=== PATIENT | male | born 1935 | race Caucasian/White ===

== ENCOUNTER 2019-12-18 07:44 | Emergency (ER) | payer MEDICARE, SELFPAY ==
[2019-12-18] VITALS (36 sets, daily range): BP systolic 117–154; BP diastolic 52–88; PULSE 49–72; RESP 12–35; TEMP 36.2; O2SAT 93–97
--- NOTE | 2019-12-18 07:45 | RT.EKG_ITS ---
APPROVED REPORT Exam: Resting ECG Patient Location: E HR:65 bpm ECG Measurements Heart Rate 65 AXIS WV 160 P 50 QRSd 110 QRS -47 QT 411 T 5 QTc 428 Conclusion Sinus rhythm...normal P axis, V-rate 65 Incomplete left bundle branch block. Low voltage, precordial leads Anterior Q waves
[2019-12-18 08:02] LABS: Bilirubin Negative (Negative); Blood Negative (Negative); Clarity Clear (Clear); Glucose Negative (Negative); Ketones Negative (Negative); Leukocyte Esterase Negative (Negative); Nitrite Negative (Negative); Specific Gravity 1.025 (1.005-1.025); Urobilinogen 0.2 EU/dL (Up TO 0.2); pH 7.5 (5-8)
--- NOTE | 2019-12-18 08:23 | ED.GENADUL_ITS ---
Discharge Plan Disposition Patient Disposition: HOME Condition: Stable Discharge Details Clinical Impression: Confusion Primary Care Provider: Jordon Padron ED Provider: Quincy Schafer Home Meds and New Rx's Prescriptions: Continued atorvastatin [Lipitor] 40 MG tablet 40 mg PO DAILY RF: 0 polyethylene glycol 3350 17 GM powder in packet 17 gm PO DAILY RF: 0 sennosides-docusate sodium [Senokot-S] 1 EACH tablet 2 ea PO HS RF: 0 clopidogrel [Plavix] 75 MG tablet 75 mg PO DAILY RF: 0 acetaminophen [Mapap Extra Strength] 500 MG tablet 1,000 mg PO BID RF: 0 tamsulosin [Flomax] 0.4 MG capsule 0.4 mg PO DAILY RF: 0 pantoprazole 40 MG tablet,delayed release (DR/EC) 40 mg PO DAILY RF: 0 nitroglycerin [Nitrostat] 0.4 MG tablet, sublingual 0.4 mg Sublingual DIRECTED PRNRF: 0 metoprolol succinate 25 MG tablet extended release 24 hr 25 mg PO DAILY RF: 0 albuterol sulfate [Proventil HFA] 6.7 GM HFA aerosol inhaler 200 puff Inhalation Q4H PRN PRNRF: 0 lisinopril 2.5 MG tablet 2.5 mg PO DAILY RF: 0 bupropion HCl [Wellbutrin XL] 150 MG tablet extended release 24 hr 300 mg PO DAILY AM RF: 0 Therapeutic-M 1 TAB tablet 1 ea PO DAILY RF: 0 cholecalciferol (vitamin D3) 1,000 UNITS tablet 2,000 units PO DAILY RF: 0 [id number]-fish oil-D3 [Fish Oil-Vit D3] 1 EACH capsule 1 ea PO DAILY RF: 0 aspirin 81 mg Tablet,Delayed Release (Dr/Ec) 81 mg PO DAILY RF: 0 losartan 25 mg Tablet 25 mg PO DAILY RF: 0 latanoprost [Xalatan] 0.005 % Drops 0.005 drp ophthalmic (eye) DAILY RF: 0 fluticasone furoate 50 mcg/actuation Blister With Device 50 mcg INHALATION DAILY RF: 0 docosahexaenoic acid-epa 120-180 mg Capsule 120 cap PO DAILY RF: 0 atorvastatin [Lipitor] 40 mg Tablet 40 mg PO DAILY RF: 0 candesartan 4 mg Tablet 4 mg PO DAILY RF: 0 cyanocobalamin (vitamin B-12) 500 mcg Tablet 500 mcg PO DAILY RF: 0 Discharge Instructions Instructions: Altered Mental Status (ED) Additional Instructions: At this time it appears as though you are at your baseline mental state. Work- up in the ER has not revealed any obvious emergent process. As we discussed, I have placed you on the neurology follow-up list, I recommend contacting both neurology and your primary care provider tomorrow for prompt outpatient reevaluation. Please watch for new or worsening symptoms and return to the ER for any concerns. Referrals: Татьяна Fox MD [ [facility] STAFF PHYSICIAN] - Medical Decision Making This is an 84-year-old gentleman with history of hypertension, PR with 2 stents, presenting to the ER today reporting that he felt fatigued yesterday, went to bed asymptomatic, awoke around 5:45 this morning startled and per was confused. He reports a mild dull global headache, slightly worse on the right however otherwise asymptomatic. reports that his cognition is back to baseline. They both admit that there has been a slow steady decline over several months and his ability to remember names, and his reports that he has had a change in his personality, getting agitated more easily. He appears well, nontoxic and is neurologically intact. Differential includes but not excluded to UTI, atypical ACS, hypoglycemia, CVA, TIA, brain mass, dementia. Will initiate IV access, cardiac work-up including repeat 3-hour troponin, and CT imaging of his head. Both and patient are comfortable with this plan. I did discuss this plan with Dr. Esquivel. Initial work-up in the ER reveals a white blood cell count of 3.94 hemoglobin 14.1 hematocrit 41.8 platelet count 190. INR 1.0 electrolytes unremarkable. Creatinine 0.93 with a GFR greater than 60. Glucose 132 calcium 8.8 magnesium 2.2 LFTs unremarkable. TSH 3.25, initial troponin less than 0.05. Urine unremarkable Upon reevaluation patient remains asymptomatic. Agreeable to be observed in the ER for repeat troponin and EKG in 3 hours. Patient was given a lunch tray, ate without difficulty. Repeat EKG performed at 1127, please see official report by Dr. Esquivel. Sinus bradycardia, ventricular rate of 58. No STEMI. Repeat troponin remains less than 0.05. Patient remains neurologically intact here in the ER and she is currently on Plavix. Work-up in the ER has been unremarkable, CT of head and x-ray of chest unremarkable. My concern is that with a thorough HPI it seems as though the patient has had a steady decline in overall cognition and personality changes over several weeks. Although he very well could have had a TIA this morning, I do believe that outpatient evaluation through neurology is prudent. We did discuss the potential for need of MRI. MRI not obtained here in the ER as it wo uld likely not change his ER disposition. Blood pressure has trended down nicely on its own at 136/63. Patient was given 1 g p.o. Tylenol earlier in his visit for his global headache which she reports has now completely resolved. We discussed Holter monitor but they will discuss this with his primary care provider as an outpatient. I believe this to be perfectly reasonable. I have placed him on the neurology list here but he is undecided whether he will follow-up with neurology here or at [facility] where he receives the majority of his care. He was encouraged to watch for new or worsening symptoms and return immediately to the ER, otherwise contact neurology and his primary care provider later today or tomorrow for prompt outpatient reevaluation. Medical Records Medical records reviewed: Yes I reviewed the patient's medical records. Lab Data Lab results reviewed: Yes I reviewed the patient's lab results. Lab results narrative: Laboratory Tests Range/Units 12/18/19 12/18/19 12/18/19 07:57 08:15 08:15 WBC (4.4-10.8) 10^3/uL 3.94 L RBC (4.36-5.78) 10^6/uL 4.53 Hgb (13.5-17.5) g/dL 14.1 Hct (40.0-50.0) % 41.8 MCV (80-95) fL 92.3 MCH (27.0-33.0) pg 31.1 MCHC (32.0-36.0) % 33.7 RDW (11.8-14.1) % 12.5 Plt Count (130-400) 10^3/uL 190 MPV (8.0-11.0) fL 9.8 Immature Gran % 0.8 Neutrophils % 59.3 Lymphocytes % 20.8 Monocytes % 10.9 Eosinophils % 7.9 Basophils % 0.3 Nucleated RBC % % 0 Absolute Neutrophils (1.2-6.7) 10^3/uL 2.34 Absolute Lymphocytes (1.2-3.4) 10^3/uL 0.82 L Absolute Monocytes (0.1-0.8) 10^3/uL 0.43 Absolute Eosinophils (0.0-0.7) 10^3/uL 0.31 Absolute Basophils (0.0-0.2) 10^3/uL 0.01 PT (9.3-11.0) sec INR (0.9-1.1) APTT (21.0-31.4) sec Sodium (136-145) mmol/L 137 Potassium (3.5-5.1) mmol/L 4.2 Chloride (98-107) mmol/L 103 Carbon Dioxide (21.0-32.0) mmol/L 27.5 Anion Gap (3-11) mmol/L 6.5 BUN (7-18) mg/dL 12 Creatinine (0.70-1.30) mg/dL 0.93 Estimated GFR/1.73 m2 (mL/min/1.73m2) >= 60.00 Glucose (74-106) mg/dL 132 H Calcium (8.5-10.1) mg/dL 8.8 Magnesium (1.8-2.4) mg/dL Total Bilirubin (0.2-1.0) mg/dL 0.6 AST (15-37) U/L 22 ALT (16-63) U/L 28 Alkaline Phosphatase (46-116) U/L 78 Troponin I (<0.06) ng/mL Total Protein (6.4-8.2) g/dL 6.5 Albumin (3.4-5.0) g/dL 3.4 TSH (0.36-3.74) uIU/mL Urine Color (Yellow) Yellow Urine Clarity (Clear) Clear Urine pH (5-8) 7.5 Ur Specific [place] (1.005-1.025) 1.025 Urine Protein (Negative) mg/dL Negative Urine Ketones (Negative) mg/dL Negative Urine Blood (Negative) Negative Urine Nitrite (Negative) Negative Urine Bilirubin (Negative) Negative Urine Urobilinogen (Up TO 0.2) EU/dL 0.2 Ur Leukocyte Esterase (Negative) Negative Urine Glucose (Negative) mg/dL Negative Range/Units 12/18/19 12/18/19 12/18/19 08:15 08:15 08:15 WBC (4.4-10.8) 10^3/uL RBC (4.36-5.78) 10^6/uL Hgb (13.5-17.5) g/dL Hct (40.0-50.0) % MCV (80-95) fL MCH (27.0-33.0) pg MCHC (32.0-36.0) % RDW (11.8-14.1) % Plt Count (130-400) 10^3/uL MPV (8.0-11.0) fL Immature Gran % Neutrophils % Lymphocytes % Monocytes % Eosinophils % Basophils % Nucleated RBC % % Absolute Neutrophils (1.2-6.7) 10^3/uL Absolute Lymphocytes (1.2-3.4) 10^3/uL Absolute Monocytes (0.1-0.8) 10^3/uL Absolute Eosinophils (0.0-0.7) 10^3/uL Absolute Basophils (0.0-0.2) 10^3/uL PT (9.3-11.0) sec 10.0 INR (0.9-1.1) 1.0 APTT (21.0-31.4) sec 25.1 Sodium (136-145) mmol/L Potassium (3.5-5.1) mmol/L Chloride (98-107) mmol/L Carbon Dioxide (21.0-32.0) mmol/L Anion Gap (3-11) mmol/L BUN (7-18) mg/dL Creatinine (0.70-1.30) mg/dL Estimated GFR/1.73 m2 (mL/min/1.73m2) Glucose (74-106) mg/dL Calcium (8.5-10.1) mg/dL Magnesium (1.8-2.4) mg/dL 2.2 Total Bilirubin (0.2-1.0) mg/dL AST (15-37) U/L ALT (16-63) U/L Alkaline Phosphatase (46-116) U/L Troponin I (<0.06) ng/mL < 0.05 Total Protein (6.4-8.2) g/dL Albumin (3.4-5.0) g/dL TSH (0.36-3.74) uIU/mL 3.25 Urine Color (Yellow) Urine Clarity (Clear) Urine pH (5-8) Ur Specific [place] (1.005-1.025) Urine Protein (Negative) mg/dL Urine Ketones (Negative) mg/dL Urine Blood (Negative) Urine Nitrite (Negative) Urine Bilirubin (Negative) Urine Urobilinogen (Up TO 0.2) EU/dL Ur Leukocyte Esterase (Negative) Urine Glucose (Negative) mg/dL Range/Units 12/18/19 11:24 WBC (4.4-10.8) 10^3/uL RBC (4.36-5.78) 10^6/uL Hgb (13.5-17.5) g/dL Hct (40.0-50.0) % MCV (80-95) fL MCH (27.0-33.0) pg MCHC (32.0-36.0) % RDW (11.8-14.1) % Plt Count (130-400) 10^3/uL MPV (8.0-11.0) fL Immature Gran % Neutrophils % Lymphocytes % Monocytes % Eosinophils % Basophils % Nucleated RBC % % Absolute Neutrophils (1.2-6.7) 10^3/uL Absolute Lymphocytes (1.2-3.4) 10^3/uL Absolute Monocytes (0.1-0.8) 10^3/uL Absolute Eosinophils (0.0-0.7) 10^3/uL Absolute Basophils (0.0-0.2) 10^3/uL PT (9.3-11.0) sec INR (0.9-1.1) APTT (21.0-31.4) sec Sodium (136-145) mmol/L Potassium (3.5-5.1) mmol/L Chloride (98-107) mmol/L Carbon Dioxide (21.0-32.0) mmol/L Anion Gap (3-11) mmol/L BUN (7-18) mg/dL Creatinine (0.70-1.30) mg/dL Estimated GFR/1.73 m2 (mL/min/1.73m2) Glucose (74-106) mg/dL Calcium (8.5-10.1) mg/dL Magnesium (1.8-2.4) mg/dL Total Bilirubin (0.2-1.0) mg/dL AST (15-37) U/L ALT (16-63) U/L Alkaline Phosphatase (46-116) U/L Troponin I (<0.06) ng/mL < 0.05 Total Protein (6.4-8.2) g/dL Albumin (3.4-5.0) g/dL TSH (0.36-3.74) uIU/mL Urine Color (Yellow) Urine Clarity (Clear) Urine pH (5-8) Ur Specific [place] (1.005-1.025) Urine Protein (Negative) mg/dL Urine Ketones (Negative) mg/dL Urine Blood (Negative) Urine Nitrite (Negative) Urine Bilirubin (Negative) Urine Urobilinogen (Up TO 0.2) EU/dL Ur Leukocyte Esterase (Negative) Urine Glucose (Negative) mg/dL ECG Data Attestation: I personally reviewed and interpreted this ECG (s) as follows: Interpretation: Please see official report by Dr. Esquivel. Sinus rhythm, ventricular rate of 65. No STEMI. HPI General Mode of arrival: ambulatory . Date/Time Provider Initiated Documentation: 12/18/19 07:52 . Limitations to Documentation: no limitations . Information obtained by: patient and family . HPI Narrative: This is an 84-year-old male with history of hypertension, hypercholesteremia, GERD, BPH, PR 4 years ago with 2 stents, currently on Plavix, presents to the ER with his for evaluation of what they described as confusion. Apparently yesterday he was out doing yard work and felt more fatigued than baseline. He had one episode of diarrhea sometime yesterday evening or night. This morning he woke up around 5:45 and his describes him as appearing startled. He got up from bed and went out and laid in the recliner. She asked him what was wrong and he stated all be all right. She reports that he seemed confused, she asked him what her name was, and he stated of bananas. They spoke to their daughter on the phone who also reported he seemed different. He admits that he has a hard time remembering names and this is been ongoing for quite some time. reports a change in his overall personality, gets easily frustrated, over quite some time as well. Denies recent illness or trauma. She reports that he appears to be back to his baseline upon presentation to the ER and if he was acting like this at home she would have not come to the hospital in the first place. He denies any recent illness or trauma. He reports a mild global headache, worse on the right side. Denies fever, visual changes, neck pain, chest pain, shortness of breath, back pain, abdominal pain, nausea, vomiting, constipation, dysuria, hematuria, skin rash, numbness, tingling, weakness. Related Data Home Medications Medication Instructions Recorded Confirmed Therapeutic-M 1 ea PO DAILY 04/27/16 12/18/19 acetaminophen [Mapap Extra 1,000 mg PO BID 04/27/16 12/18/19 Strength] albuterol sulfate [Proventil HFA] 200 puff INHALATION Q4H PRN PRN 04/27/16 12/18/19 atorvastatin [Lipitor] 40 mg PO DAILY 04/27/16 12/18/19 bupropion HCl [Wellbutrin XL] 300 mg PO DAILY AM 04/27/16 12/18/19 cholecalciferol (vitamin D3) 2,000 units PO DAILY 04/27/16 04/27/16 clopidogrel [Plavix] 75 mg PO DAILY 04/27/16 12/18/19 lisinopril 2.5 mg PO DAILY 04/27/16 04/27/16 metoprolol succinate 25 mg PO DAILY 04/27/16 12/18/19 nitroglycerin [Nitrostat] 0.4 mg SUBLINGUAL DIRECTED PRN 04/27/16 12/18/19 [id number] oil-D3 [Fish 1 ea PO DAILY 04/27/16 12/18/19 Oil-Vit D3] pantoprazole 40 mg PO DAILY 04/27/16 12/18/19 polyethylene glycol 3350 17 gm PO DAILY 04/27/16 12/18/19 sennosides-docusate sodium 2 ea PO HS 04/27/16 04/27/16 [Senokot-S] tamsulosin [Flomax] 0.4 mg PO DAILY 04/27/16 12/18/19 aspirin 81 mg PO DAILY 12/18/19 12/18/19 atorvastatin [Lipitor] 40 mg PO DAILY 12/18/19 12/18/19 candesartan 4 mg PO DAILY 12/18/19 12/18/19 cyanocobalamin (vitamin B-12) 500 mcg PO DAILY 12/18/19 12/18/19 docosahexaenoic acid-epa 120 cap PO DAILY 12/18/19 12/18/19 fluticasone furoate 50 mcg INHALATION DAILY 12/18/19 12/18/19 latanoprost [Xalatan] 0.005 drp OPHTHALMIC (EYE) DAILY 12/18/19 12/18/19 losartan 25 mg PO DAILY 12/18/19 12/18/19 Allergies Allergy/AdvReac Type Severity Reaction Status Date / Time oxycodone [From Percocet] AdvReac Unverified 04/27/16 15:45 Penicillins AdvReac Unverified 04/27/16 15:45 General Stated Complaint: GenMedical FORD: 3 Review of Systems Constitutional Constitutional: Reports fatigue, Denies fever(s) and Denies weakness Eyes Eyes: Denies change in vision ENT Ears, Nose, Mouth, and Throat: Denies neck pain Cardiovascular Cardiovascular: Denies chest pain and Denies dyspnea Respiratory Respiratory: Denies cough and Denies dyspnea Gastrointestinal Gastrointestinal: Denies abdominal pain, Denies melena, Denies hematochezia, Reports diarrhea, Denies nausea and Denies vomiting Genitourinary Genitourinary: Denies dysuria Musculoskeletal Musculoskeletal: Denies back pain, Denies neck pain, Denies numbness and Denies tingling Integumentary/Breasts Skin/Breast: Denies rash Neurologic Neurologic: Denies numbness, Denies tingling and Denies weakness Endocrine Endocrine: Reports fatigue Hematologic/Lymphatic Hematologic/Lymphatic: Reports easy bleeding and Reports easy bruising [facility] Social History Smoking/Tobacco Use Status: Never Alcohol Intake: never Substance use type: does not use Do you feel safe at home: Yes Do you feel safe in your relationship?: Yes Exam Const General: cooperative, healthy appearing, comfortable and no acute distress Orientation: alert, awake, oriented to person, oriented to place and confused (To actual date, knows it is early December 2019) [facility] Head: normal to inspection, normocephalic and atraumatic Ears: external ears normal, TM's normal bilaterally and EAC's normal General nose exam: external nose normal Face and sinus: normal facial exam Mouth: oral mucosae normal and moist mucous membranes Throat: posterior oropharynx normal Eyes General: appearance normal, both eyes and all related structures Alignment and Position: alignment normal Periorbital: periorbital findings normal Eyelids: eyelids normal Conjunctivae: conjunctivae normal Sclera: sclerae normal Cornea: corneas normal Pupils: PERRL EOM: EOM intact bilaterally Direct ophthalmoscopy: normal light reflex Neck Neck: normal visual inspection, full ROM, no lymphadenopathy, no meningeal signs, trachea midline, supple and nontender Resp Effort & Inspection: normal respiratory effort and able to speak in complete sentences Auscultation: clear to auscultation bilaterally Cardio Rate: regular rate Rhythm: regular rhythm GI Palpation: soft, not firm, no guarding, not rigid and nontender Auscultation: normal bowel sounds Back/Spine/Pelvis Back: No back tenderness Skin General skin exam: no rashes or lesions noted Neuro General: patient alert, patient awake, moves all extremities and no focal motor deficits Cranial Nerves: CN's II-XI intact bilaterally Cognition: normal cognition Speech: speech normal Gait: normal gait Motor: muscle tone normal throughout, strength 5/5 throughout, no pronator drift, no movement abnormalities noted and no fasciculations Sensory Exam: no sensory deficits noted Coordination: [id number] test normal, [id number] test normal and Does not sway with eyes open Extrem General: normal to inspection, full ROM, capillary refill normal, no pedal edema and no calf tenderness Psych Appearance: grossly normal Mental Status: mental status grossly normal Course Vital Signs Vital signs: Vital Signs Temperature 36.2 C L 12/18/19 08:00 Pulse 63 12/18/19 08:00 Respiratory Rate 18 12/18/19 08:00 Blood Pressure 154/64 H 12/18/19 08:00 Pulse Oximetry 94 12/18/19 08:00 Temperature 36.2 C L 12/18/19 08:00 Temperature Source Tympanic 12/18/19 08:00 Pulse 63 12/18/19 08:00 Respiratory Rate 18 12/18/19 08:00 Respiratory Effort Non-Labored 12/18/19 08:04 Blood Pressure 154/64 H 12/18/19 08:00 Blood Pressure Position Sitting 12/18/19 08:00 Pulse Oximetry 94 12/18/19 08:00 Oxygen Delivery Method Room Air 10/06/20 08:00 Oxygen Flow Rate 0 12/18/19 08:00 Pain Level 0 12/18/19 08:00 Lab/Test Results Lab/Test Results: Laboratory Tests Range/Units 12/18/19 07:57 Urine Color (Yellow) Yellow Urine Clarity (Clear) Clear Urine pH (5-8) 7.5 Ur Specific [place] (1.005-1.025) 1.025 Urine Protein (Negative) mg/dL Negative Urine Ketones (Negative) mg/dL Negative Urine Blood (Negative) Negative Urine Nitrite (Negative) Negative Urine Bilirubin (Negative) Negative Urine Urobilinogen (Up TO 0.2) EU/dL 0.2 Ur Leukocyte Esterase (Negative) Negative Urine Glucose (Negative) mg/dL Negative
[2019-12-18 08:25] LABS: Abs Immature Grans 0.03 10^3/uL (0.0-0.06); Absolute Basophil Count 0.01 10^3/uL (0.0-0.2); Absolute Eosinophil Count 0.31 10^3/uL (0.0-0.7); Absolute Lymphocyte Count 0.82 10^3/uL (1.2-3.4); Absolute Monocyte Count 0.43 10^3/uL (0.1-0.8); Absolute Neutrophil Count 2.34 10^3/uL (1.2-6.7); Basophils % 0.3; Eosinophils % 7.9; HCT 41.8 % (40.0-50.0); HGB 14.1 g/dL (13.5-17.5); Immature Grans % 0.8; Lymphocytes % 20.8; MCH 31.1 pg (27.0-33.0); MCHC 33.7 % (32.0-36.0); MCV 92.3 fL (80-95); MPV 9.8 fL (8.0-11.0); Monocytes % 10.9; Neutrophils % 59.3; Nucleated RBC 0 %; Platelet Count 190 10^3/uL (130-400); RBC 4.53 10^6/uL (4.36-5.78); RDW 12.5 % (11.8-14.1); RDW-SD 42.5 fL; WBC 3.94 10^3/uL (4.4-10.8)
[2019-12-18 08:49] LABS: ALT 28 U/L (16-63); AST 22 U/L (15-37); Albumin 3.4 g/dL (3.4-5.0); Alkaline Phosphatase 78 U/L (46-116); Anion Gap 6.5 mmol/L (3-11); BUN 12 mg/dL (7-18); Bilirubin, Total 0.6 mg/dL (0.2-1.0); CO2 27.5 mmol/L (21.0-32.0); CREATININE 0.93 mg/dL (0.70-1.30); Calcium 8.8 mg/dL (8.5-10.1); Chloride 103 mmol/L (98-107); Glucose 132 mg/dL (74-106); Potassium 4.2 mmol/L (3.5-5.1); Sodium 137 mmol/L (136-145); Total Protein 6.5 g/dL (6.4-8.2)
[2019-12-18] MEDS: Normal Saline 1,000 ML 125 ML IV (09:00)
[2019-12-18 09:03] LABS: Magnesium 2.2 mg/dL (1.8-2.4)
--- NOTE | 2019-12-18 09:07 | DI.CT_ITS ---
EXAM: CT HEAD WO CLINICAL HISTORY: confusion around 545 this morning, resolved TECHNIQUE: COMPARISON: No exams were available for comparison FINDINGS: Noncontrast cranial CT was performed. There is moderate generalized cerebral atrophy. 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 No evidence of acute intracranial hemorrh age, mass effect, or midline shift. The orbital and temporal bone structures appear intact. Visuali zed mastoid air cells and paranasal sinuses are clear. IMPRESSION: No evidence of acute intracranial process. RADIATION DOSE DELIVERED: 724.53mGy.cm Total DLP
[2019-12-18 09:10] LABS: TSH (W/Ref FT4) 3.25 uIU/mL (0.36-3.74)
[2019-12-18 09:11] LABS: Troponin I < 0.05 ng/mL (<0.06)
--- NOTE | 2019-12-18 09:13 | DI.RAD_ITS ---
EXAM: XR CHEST 2V PA LATERAL CLINICAL HISTORY: confusion TECHNIQUE: COMPARISON: CR CHEST 2 VIEWS PA,LAT from 05/25/2010 FINDINGS: The heart is not enlarged. There are changes of COPD and pulmonary scarring. No acute consolidation . No change from prior chest film May 2010. No pleural effusion seen. IMPRESSION: No evidence of acute process. RADIATION DOSE DELIVERED: Total DLP
[2019-12-18 09:18] LABS: PTT Activated 25.1 sec (21.0-31.4)
[2019-12-18] MEDS: Acetaminophen 500 MG TAB 1000 MG PO (09:50)
--- NOTE | 2019-12-18 11:15 | RT.EKG_ITS ---
APPROVED REPORT Exam: Resting ECG Patient Location: E HR:58 bpm ECG Measurements Heart Rate 58 AXIS OK 162 P 52 QRSd 107 QRS -46 QT 418 T -3 QTc 411 Conclusion Sinus bradycardia..rate 60 Anteroseptal infarct, old..
--- NOTE | 2019-12-18 11:52 | NUR.NOTE ---
Referral faxed to [facility] Neurology.Nursing Note:
[2019-12-18 11:55] LABS: Troponin I < 0.05 ng/mL (<0.06)
== END 2019-12-18 12:48 | disposition home or self-care (01) ==
PROVIDERS: Emergency Provider Physician Assistant; PCP Family Medicine
DX: R41.0 Disorientation, unspecified (principal); F51.9 Sleep disorder not due to a substance or known physiological condition, unspecified; I10 Essential (primary) hypertension
CPT/HCPCS: 36415; 36416; 80053; 82962; 93005; 96360; 96361; 99285; 70450; 71046; 81003; 83735; 84443; 84484; 85025; 85610; 85730; 93010; 99284

== ENCOUNTER 2021-02-20 12:38 | Emergency (ER) | payer MEDICARE, SELFPAY ==
[2021-02-20] VITALS (32 sets, daily range): BP systolic 125–162; BP diastolic 48–103; PULSE 63–74; RESP 15–38; TEMP 36.7; O2SAT 85–97
--- NOTE | 2021-02-20 12:45 | RT.EKG_ITS ---
APPROVED REPORT Exam: Resting ECG Reason for Exam: SEIZURE Patient Location: E HR:70 bpm ECG Measurements Heart Rate 70 AXIS NJ 160 P 54 QRSd 113 QRS -46 QT 407 T 55 QTc 440 Conclusion Sinus rhythm...normal P axis, V-rate 60- 99 Incomplete left bundle branch block...QRSd>110mS, terminal axis(-90,-1)
--- NOTE | 2021-02-20 13:15 | DI.CT_ITS ---
Exam(s) CT HEAD WO EXAM: CT HEAD WO CLINICAL HISTORY: seizure like activity. TECHNIQUE: Imaging Protocol: Axial computed tomography images with coronal and sagittal reformatted images were created and reviewed COMPARISON: CT CT HEAD WO from 12/18/2019 FINDINGS: Ventricles and Extra axial spaces: Normal in size and morphology for the patient's age. Hemorrhage: None. Cerebral parenchyma: No acute territorial infarct. There are areas of decreased attenuation in the w douglas matter most consistent with chronic microvascular ischemic disease. Midline shift: None. Brainstem/Cerebellum: Normal. Calvarium: Normal. Visualized Paranasal sinuses/Mastoids: Clear. Soft Tissues: Unremarkable. IMPRESSION: 1. No acute intracranial process. 2. Results of this exam have been verbally communicated with provider. RADIATION DOSE DELIVERED: 796.17mGy.cm Total DLP DATA REPOSITORY: All CT scans at this facility are submitted to the National Radiology Data Registry (NRDR) Dose Index Registry (DIR) with the [employer] ([employer]). RADIATION OPTIMIZATION: All CT scans at this facility use at least one of these dose optimization te chniques: automated exposure control; mA and/or kV adjustment per patient size (includes targeted exa ms where dose is matched to clinical indication); or iterative reconstruction.
--- NOTE | 2021-02-20 13:15 | DI.RAD_ITS ---
Exam(s) XR CHEST 2V PA LATERAL EXAM: XR CHEST 2V PA LATERAL CLINICAL HISTORY: back pain TECHNIQUE: 2D digital imaging was performed of the chest. Two images were obtained. PA and lateral views were obtained. COMPARISON: CR XR CHEST 2V PA LATERAL from 12/18/2019 FINDINGS: MEDIASTINUM: Normal. HEART: Normal. PULMONARY VASCULATURE: Normal. LUNGS: No focal consolidating infiltrates. Chronic interstitial disease is present. PLEURAL SPACE: No pleural effusion or pneumothorax. BONE:Within normal limits for the patient's age. OTHER FINDINGS:Normal. IMPRESSION: No acute pulmonary findings. DATA REPOSITORY: RADIATION DOSE DELIVERED:
[2021-02-20] MEDS: Normal Saline Flush 10 ML SYR IVP ×2 (13:20→15:20)
--- NOTE | 2021-02-20 13:20 | ED.GENADUL_ITS ---
Discharge Plan Disposition Patient Disposition: HOME Condition: Improving Discharge Details Clinical Impression: Compression fracture of thoracic vertebra, Rib fractures, Seizure Primary Care Provider: Jordon Padron ED Provider: Lillie Dumont Home Meds and New Rx's Prescriptions: New lamotrigine 100 mg tablet 100 mg PO BID Qty: 28 RF: 0 lamotrigine [Lamictal] 25 mg tablet 125 mg PO BID 30 Days Qty: 300 RF: 0 hydrocodone-acetaminophen 5-325 mg tablet 1 tab PO Q6H PRN (Reason: pain) Qty: 10 RF: 0 Continued citalopram 10 mg tablet 10 mg PO DAILY RF: 0 donepezil 10 mg tablet 10 mg PO QHS RF: 0 therapeutic multivitamin Tablet 1 tab PO DAILY RF: 0 melatonin 3 mg Tablet 6 mg PO QHS RF: 0 fluticasone furoate 50 mcg/actuation Blister With Device 100 mcg INHALATION DAILY RF: 0 atorvastatin [Lipitor] 40 MG tablet 40 mg PO DAILY RF: 0 polyethylene glycol 3350 17 GM powder in packet 17 gm PO DAILY RF: 0 sennosides-docusate sodium [Senokot-S] 1 EACH tablet 2 ea PO HS RF: 0 clopidogrel [Plavix] 75 MG tablet 75 mg PO DAILY RF: 0 acetaminophen [Mapap Extra Strength] 500 MG tablet 1,000 mg PO BID RF: 0 tamsulosin [Flomax] 0.4 MG capsule 0.4 mg PO DAILY RF: 0 pantoprazole 40 MG tablet,delayed release (DR/EC) 40 mg PO DAILY RF: 0 nitroglycerin [Nitrostat] 0.4 MG tablet, sublingual 0.4 mg Sublingual DIRECTED PRNRF: 0 metoprolol succinate 25 MG tablet extended release 24 hr 25 mg PO DAILY RF: 0 albuterol sulfate [Proventil HFA] 6.7 GM HFA aerosol inhaler 200 puff Inhalation Q4H PRN PRNRF: 0 lisinopril 2.5 MG tablet 2.5 mg PO DAILY RF: 0 bupropion HCl [Wellbutrin XL] 150 MG tablet extended release 24 hr 150 mg PO DAILY AM RF: 0 Therapeutic-M 1 TAB tablet 1 ea PO DAILY RF: 0 cholecalciferol (vitamin D3) 1,000 UNITS tablet 2,000 units PO DAILY RF: 0 emtxh-[id number]-epa-fish oil-D3 [Fish Oil-Vit D3] 1 EACH capsule 1 ea PO DAILY RF: 0 aspirin 81 mg Tablet,Delayed Release (Dr/Ec) 81 mg PO DAILY RF: 0 losartan 25 mg Tablet 25 mg PO DAILY RF: 0 latanoprost [Xalatan] 0.005 % Drops 0.005 drp ophthalmic (eye) DAILY RF: 0 fluticasone furoate 50 mcg/actuation Blister With Device 50 mcg INHALATION DAILY RF: 0 docosahexaenoic acid-epa 120-180 mg Capsule 120 cap PO DAILY RF: 0 atorvastatin [Lipitor] 40 mg Tablet 40 mg PO DAILY RF: 0 candesartan 4 mg Tablet 4 mg PO DAILY RF: 0 cyanocobalamin (vitamin B-12) 500 mcg Tablet 500 mcg PO DAILY RF: 0 Discontinued lamotrigine 100 mg tablet 75 mg PO BID RF: 0 Discharge Instructions Instructions: Rib Fracture (ED), Vertebral Compression Fracture (ED), Recurrent Seizures in Adults (ED) Additional Instructions: The CT scan of your chest notes a thoracic spine compression fracture and right- sided rib fractures. These appear to be old and healing but may be the source of your pain. The remainder of your lab work and imaging today is reassuring and shows no evidence of significant abnormal findings. Apply ice to the affected area several times daily for 20 minutes at a time. A prescription for the pain medication Vicodin has been sent electronically to your pharmacy. Take this as needed and directed for pain. Stop taking your 75 mg Lamictal. You were given a dose of 100 mg Lamictal this evening here in the emergency department. A prescription for Lamictal 100 mg twice daily by mouth for the next 2 weeks has been sent electronically to your pharmacy. Take this as directed for the next 2 weeks. After you finish taking the prescription for Lamictal 100 mg twice daily, you are to start taking Lamictal 125 mg twice daily. A prescription for Lamictal 125 mg twice daily has also been sent electronically to your pharmacy. Call [facility] neurology on Tuesday morning to schedule a follow-up appointment for re-evaluation. Return immediately to the emergency department if you develop any worsening or new concerning symptoms. Discharge Data Discharge Physician: Lillie Dumont Medical Decision Making <Danielito Esquivel MD - Last Filed: 02/20/21 14:58> 85-year-old male brought to emergency department by his . She noticed 2 separate episodes of seizure-like activity last night over approximate 8 hours. After midnight he had 3 to 5 minutes while in bed of right upper extremity tonic-clonic movements that dissipated on its own. Patient was able to have some sleep during the night and then again this morning had approximate 20 minutes of right upper extremity tonic-clonic movements. There was no tongue biting, no loss continence, and he is not had chest pain or shortness of breath. Patient does complain of mild headache and upper back pain. Patient arrives to the ER alert and interactive. His vital signs reveal slight hypertension with a blood pressure 160/100. He is afebrile, interactive and does not have focal neurologic deficits. I received and reviewed records from [facility] where the patient has previously been followed by neurology. On January 08 of this year he was seen in the emergency department with seizure-like activity. Neurology was consulted with EEG recommended. EEG interpreted by Dr. Voss on January 08 reveals left anterior temporal waveforms suspicious for epileptiform morphology. These findings raise concern for a focal left frontal temporal dysfunction and potential for seizures. Follow-up in neurology clinic on January 27 note please seizure-like activities have been ongoing since at least December 2019. They note that the patient was tapered off of Keppra and now on low-dose lamotrigine. The records also will note consideration of obtaining repeat outpatient, ambulatory EEG. No seizure-like activity upon arrival. Concern for breakthrough seizure patient referred for CT scan of the head, screening chest x-ray, he is given 0.5 mg of Ativan both for muscle relaxation, anxiolysis, as well as acetaminophen. As it is change of shift, will sign the patient out to Dr. Dumont pending review of full complement of laboratories and reevaluation. Please see her note r egarding details of final impression and disposition. Would anticipate discussion with neurology regarding consideration of returning to use of Keppra versus alternative agent. Will perform CTA given the patient's hypertension upper back pain. Please see Dr. Dumont's note <Lillie Dumont DO - Last Filed: 02/20/21 21:59> 1500 --please see Dr. Esquivel's note for initial presentation, exam and plan. Case endorsed to follow-up on CT chest and follow-up with [facility] neurology regarding recommendations. CTA chest/abdomen/pelvis notes: IMPRESSION: 1. There is a T5 compression fracture which appears subacute. 2. Subacute healing nondisplaced right rib fractures. 3. No acute abdominal or pelvic process. 4. Stable hypodense mass in the right lobe of the liver. 5. Atherosclerosis of the abdominal aorta and its runoff with moderately severe is stenosis at the origin of the left femoral artery. 6. Results of this exam have been verbally communicated with provider. 1730 -- Patient reassessed at bedside and still does endorse midline back pain. He is tender overlying T5 in addition to right lateral chest. There is no step-off or evidence of trauma. He is neurovascularly intact. reports that he fell 3 weeks ago but was able to catch himself and denies any direct blunt injury. Patient denies any more recent fall. Imaging reviewed with Dr. Quiros. These injuries do appear subacute and recommends pain control but no other acute recommendations. Patient has an allergy to oxycodone which caused difficulty breathing. Will give a dose of Vicodin and reassess. Case also discussed with [facility] neurology who recommends increasing his Lamictal from 75 mg twice daily to 100 mg twice daily for 2 weeks then 125 mg twice daily and to follow-up with neurology outpatient. 1814 --patient had pain relief with vicodin with no adverse effects and was able to ambulate in the room and and patient felt comfortable going home. He was given Vicodin to go in addition to prescription sent electronically to his pharmacy. Prescriptions for lamictal 100 mg twice daily x 2 weeks then Lamictal 125 mg twice daily sent electronically to his pharmacy. Medical Records Medical records reviewed: Yes I reviewed the patient's medical records. Imaging Data Radiologic Study: Radiologist's impression: CT HEAD WO CLINICAL HISTORY: seizure like activity. TECHNIQUE: Imaging Protocol: Axial computed tomography images with coronal and sagittal reformatted images were created and reviewed COMPARISON: CT CT HEAD WO from 12/18/2019 FINDINGS: Ventricles and Extra axial spaces: Normal in size and morphology for the patient's age. Hemorrhage: None. Cerebral parenchyma: No acute territorial infarct. There are areas of decreased attenuation in the white matter most consistent with chronic microvascular ischemic disease. Midline shift: None. Brainstem/Cerebellum: Normal. Calvarium: Normal. Visualized Paranasal sinuses/Mastoids: Clear. Soft Tissues: Unremarkable. IMPRESSION: 1. No acute intracranial process. 2. Results of this exam have been verbally communicated with provider. XR CHEST 2V PA LATERAL CLINICAL HISTORY: back pain TECHNIQUE: 2D digital imaging was performed of the chest. Two images were obtained. PA and lateral views were obtained. COMPARISON: CR XR CHEST 2V PA LATERAL from 12/18/2019 FINDINGS: MEDIASTINUM: Normal. HEART: Normal. PULMONARY VASCULATURE: Normal. LUNGS: No focal consolidating infiltrates. Chronic interstitial disease is present. PLEURAL SPACE: No pleural effusion or pneumothorax. BONE:Within normal limits for the patient's age. OTHER FINDINGS:Normal. IMPRESSION: No acute pulmonary findings. CT THORAX ABD/PEL CTA CLINICAL HISTORY: Upper back pain, hypertension. TECHNIQUE: Imaging Protocol: Axial CT angiography was performed with multi- slice acquisition and multi-planar and/or 3D reconstructions. CONTRAST MATERIAL: Intravenous: Omnipaque 350 Contrast volume:100 mL Oral: No COMPARISON: CT RENAL COLIC WO CONTRAST from 04/27/2016 CT RENAL COLIC WO CONTRAST from 04/27/2016 CR XR CHEST 2V PA LATERAL from 12/18/2019 CR XR CHEST 2V PA LATERAL from 12/18/2019 CR XR CHEST 2V PA LATERAL from 02/20/2021 FINDINGS: CHEST: Tracheobronchial tree: Patent where visualized. Pulmonary parenchyma: There are dependent small infiltrates in the lung bases. No architectural distortion. Pulmonary Arteries: No evidence of filling defect to suggest pulmonary emboli. Mediastinum and Megha: No dominant adenopathy or fluid collection. There is a small hiatal hernia. Visualized thyroid: Unremarkable. Pleura: No effusion or pneumothorax. Heart: Mild cardiomegaly. Coronary artery calcifications are present. No pericardial effusion. Aorta: Thoracic aorta non-dilated. Atherosclerosis. No evidence of dissection. Soft Tissues: Unremarkable. Bones: There are subacute nondisplaced healing right rib fractures.There is a T5 compression fracture deformity which appears subacute. There is loss of approximately 20 percent of the height of the vertebral body. No retropulsion is identified. ABDOMEN AND PELVIS: Abdomen: Celiac axis/mesenteric arteries: No evidence of occlusion or significant stenosis. Atherosclerosis. Renal Arteries: No evidence of occlusion or significant stenosis. There is a single renal artery perfusing each kidney. Atherosclerosis. Aorta: No evidence of occlusion or significant stenosis. No aneurysm or dissection. Atherosclerosis. Pelvis: Iliac Arteries: No evidence of occlusion or significant stenosis. Atherosclerosis. Common Femoral Arteries: No evidence of occlusion or significant stenosis. There is atherosclerosis and moderately severe stenosis involving the proximal left femoral artery. ABDOMEN: Liver: There is again seen a hypodense mass in the right lobe of the liver. There does appear to be peripheral enhancement and this may represent a hemangioma. A CT scan or MRI of the liver using the hepatic hemangioma protocol may be obtained for further evaluation. No measurable mass. Portal, Superior Mesenteric, and Splenic Veins: Unremarkable. Gallbladder and Biliary Tract: No radiodense calculus or dilation. Pancreas: Normal density, no abnormal calcifications or inflammatory process. Spleen: Normal. Adrenals: No masses seen. Kidneys: Normal size, contour and axis. Nonobstructing right renal calculi. No masses seen. Bowel: No obstruction or bowel wall thickening. Appendix is unremarkable. There is a large amount of stool in the rectum which may reflect fecal impaction. Peritoneal Cavity: No ascites, collection or mesenteric inflammatory response. No free air. Lymph Nodes: Within normal limits. Bones: Multilevel degenerative changes in the lumbar spine. Soft Tissues: Unremarkable. PELVIS: Bladder: Symmetric distention, no gross wall thickening. Reproductive Organs: Unremarkable as visualized. Lymph Nodes: Within normal limits. Bones: Within normal limits. IMPRESSION: 1. There is a T5 compression fracture which appears subacute. 2. Subacute healing nondisplaced right rib fractures. 3. No acute abdominal or pelvic process. 4. Stable hypodense mass in the right lobe of the liver. 5. Atherosclerosis of the abdominal aorta and its runoff with moderately severe is stenosis at the origin of the left femoral artery. 6. Results of this exam have been verbally communicated with provider. Lab Data Lab results reviewed: Yes I reviewed the patient's lab results. Labs: 02/20/21 14:50 Urine - Reflex from Ua Urine Culture - Pending Laboratory Tests Range/Units 02/20/21 02/20/21 02/20/21 13:20 13:20 13:20 WBC (4.4-10.8) 10^3/uL 7.24 RBC (4.36-5.78) 10^6/uL 4.66 Hgb (13.5-17.5) g/dL 14.1 Hct (40.0-50.0) % 43.9 MCV (80-95) fL 94.2 MCH (27.0-33.0) pg 30.3 MCHC (32.0-36.0) % 32.1 RDW (11.8-14.1) % 13.1 Plt Count (130-400) 10^3/uL 181 MPV (8.0-11.0) fL 10.0 Immature Gran % 0.6 Neutrophils % 83.9 Lymphocytes % 8.7 Monocytes % 5.7 Eosinophils % 0.8 Basophils % 0.3 Nucleated RBC % % 0 Absolute Neutrophils (1.2-6.7) 10^3/uL 6.08 Absolute Lymphocytes (1.2-3.4) 10^3/uL 0.63 L Absolute Monocytes (0.1-0.8) 10^3/uL 0.41 Absolute Eosinophils (0.0-0.7) 10^3/uL 0.06 Absolute Basophils (0.0-0.2) 10^3/uL 0.02 Sodium (136-145) mmol/L 139 Potassium (3.5-5.1) mmol/L 4.1 Chloride (98-107) mmol/L 103 Carbon Dioxide (21.0-32.0) mmol/L 26.0 Anion Gap (3-11) mmol/L 10.0 BUN (7-18) mg/dL 16 Creatinine (0.70-1.30) mg/dL 1.1 Estimated GFR/1.73 m2 (mL/min/1.73m2) >= 60.00 Glucose (74-106) mg/dL 233 H Calcium (8.5-10.1) mg/dL 8.6 Total Bilirubin (0.2-1.0) mg/dL 0.6 AST (15-37) U/L 29 ALT (16-63) U/L 32 Alkaline Phosphatase (46-116) U/L 96 Troponin I (<0.06) ng/mL < 0.05 Total Protein (6.4-8.2) g/dL 6.9 Albumin (3.4-5.0) g/dL 3.9 Urine Color (Yellow) Urine Clarity (Clear) Urine pH (5-8) Ur Specific Roland (1.005-1.025) Urine Protein (Negative) mg/dL Urine Ketones (Negative) mg/dL Urine Blood (Negative) Urine Nitrite (Negative) Urine Bilirubin (Negative) Urine Urobilinogen (Up TO 0.2) EU/dL Ur Leukocyte Esterase (Negative) Urine RBC (0-2) HPF Urine WBC (0-5) HPF Ur Epithelial Cells (Negative) HPF Urine Crystals (Negative) HPF Urine Bacteria (Negative) HPF Urine Casts (Negative) LPF Urine Mucus (Negative) Urine Other (Negative) Ur Culture Indicated? Urine Glucose (Negative) mg/dL Range/Units 02/20/21 14:50 WBC (4.4-10.8) 10^3/uL RBC (4.36-5.78) 10^6/uL Hgb (13.5-17.5) g/dL Hct (40.0-50.0) % MCV (80-95) fL MCH (27.0-33.0) pg MCHC (32.0-36.0) % RDW (11.8-14.1) % Plt Count (130-400) 10^3/uL MPV (8.0-11.0) fL Immature Gran % Neutrophils % Lymphocytes % Monocytes % Eosinophils % Basophils % Nucleated RBC % % Absolute Neutrophils (1.2-6.7) 10^3/uL Absolute Lymphocytes (1.2-3.4) 10^3/uL Absolute Monocytes (0.1-0.8) 10^3/uL Absolute Eosinophils (0.0-0.7) 10^3/uL Absolute Basophils (0.0-0.2) 10^3/uL Sodium (136-145) mmol/L Potassium (3.5-5.1) mmol/L Chloride (98-107) mmol/L Carbon Dioxide (21.0-32.0) mmol/L Anion Gap (3-11) mmol/L BUN (7-18) mg/dL Creatinine (0.70-1.30) mg/dL Estimated GFR/1.73 m2 (mL/min/1.73m2) Glucose (74-106) mg/dL Calcium (8.5-10.1) mg/dL Total Bilirubin (0.2-1.0) mg/dL AST (15-37) U/L ALT (16-63) U/L Alkaline Phosphatase (46-116) U/L Troponin I (<0.06) ng/mL Total Protein (6.4-8.2) g/dL Albumin (3.4-5.0) g/dL Urine Color (Yellow) Yellow Urine Clarity (Clear) Clear Urine pH (5-8) 6.5 Ur Specific Roland (1.005-1.025) >= 1.030 H Urine Protein (Negative) mg/dL 30 H Urine Ketones (Negative) mg/dL Negative Urine Blood (Negative) Trace-intact H Urine Nitrite (Negative) Negative Urine Bilirubin (Negative) Negative Urine Urobilinogen (Up TO 0.2) EU/dL 0.2 Ur Leukocyte Esterase (Negative) Negative Urine RBC (0-2) HPF 5-10 H Urine WBC (0-5) HPF 5-10 Ur Epithelial Cells (Negative) HPF Negative Urine Crystals (Negative) HPF Negative Urine Bacteria (Negative) HPF Negative Urine Casts (Negative) LPF Negative Urine Mucus (Negative) Negative Urine Other (Negative) Negative Ur Culture Indicated? Yes Urine Glucose (Negative) mg/dL 500 H ECG Data Attestation: I personally reviewed and interpreted this ECG (s) as follows: Interpretation: rate of 70, sinus, incomplete RBBB, no stemi. HPI <Danielito Esquivel MD - Last Filed: 02/20/21 14:58> General Mode of arrival: ambulatory . Date/Time Provider Initiated Documentation: 02/20/21 12:39 . Limitations to Documentation: no limitations . Information obtained by: patient and family . History of Present Illness 85 year old M presents to the emergency department with the chief complaint of Seizure-like activity last night x2, upper back pain, described as moderate and similar to prior episodes, and is localized to the right and upper extremity. Patient started experiencing this hour(s) and it has been intermittent and now resolved. No relieving factors improve symptom(s), No exacerbating factors reported . Patient did receive the following treatments prior to arrival, none Related Data Home Medications Medication Instructions Recorded Confirmed Therapeutic-M 1 ea PO DAILY 04/27/16 12/18/19 acetaminophen [Mapap Extra 1,000 mg PO BID 04/27/16 02/20/21 Strength] albuterol sulfate [Proventil HFA] 200 puff INHALATION Q4H PRN PRN 04/27/16 02/20/21 atorvastatin [Lipitor] 40 mg PO DAILY 04/27/16 12/18/19 bupropion HCl [Wellbutrin XL] 150 mg PO DAILY AM 04/27/16 02/20/21 cholecalciferol (vitamin D3) 2,000 units PO DAILY 04/27/16 02/20/21 clopidogrel [Plavix] 75 mg PO DAILY 04/27/16 02/20/21 lisinopril 2.5 mg PO DAILY 04/27/16 02/20/21 metoprolol succinate 25 mg PO DAILY 04/27/16 02/20/21 nitroglycerin [Nitrostat] 0.4 mg SUBLINGUAL DIRECTED PRN 04/27/16 02/20/21 pxcbo-2g-sop-epa-fish oil-D3 [Fish 1 ea PO DAILY 04/27/16 12/18/19 Oil-Vit D3] pantoprazole 40 mg PO DAILY 04/27/16 02/20/21 polyethylene glycol 3350 17 gm PO DAILY 04/27/16 12/18/19 sennosides-docusate sodium 2 ea PO HS 04/27/16 04/27/16 [Senokot-S] tamsulosin [Flomax] 0.4 mg PO DAILY 04/27/16 02/20/21 aspirin 81 mg PO DAILY 12/18/19 02/20/21 atorvastatin [Lipitor] 40 mg PO DAILY 12/18/19 02/20/21 candesartan 4 mg PO DAILY 12/18/19 02/20/21 cyanocobalamin (vitamin B-12) 500 mcg PO DAILY 12/18/19 02/20/21 docosahexaenoic acid-epa 120 cap PO DAILY 12/18/19 02/20/21 fluticasone furoate 50 mcg INHALATION DAILY 12/18/19 12/18/19 latanoprost [Xalatan] 0.005 drp OPHTHALMIC (EYE) DAILY 12/18/19 12/18/19 losartan 25 mg PO DAILY 12/18/19 02/20/21 citalopram 10 mg PO DAILY 02/20/21 02/20/21 donepezil 10 mg PO QHS 02/20/21 02/20/21 fluticasone furoate 100 mcg INHALATION DAILY 02/20/21 02/20/21 hydrocodone-acetaminophen 1 tab PO Q6H PRN #10 tab 02/20/21 lamotrigine 100 mg PO BID #28 tab 02/20/21 lamotrigine [Lamictal] 125 mg PO BID 30 Days #300 tab 02/20/21 melatonin 6 mg PO QHS 02/20/21 02/20/21 therapeutic multivitamin 1 tab PO DAILY 02/20/21 02/20/21 Previous Rx's Medication Instructions Recorded hydrocodone-acetaminophen 1 tab PO Q6H PRN #10 tab 02/20/21 lamotrigine 100 mg PO BID #28 tab 02/20/21 lamotrigine [Lamictal] 125 mg PO BID 30 Days #300 tab 02/20/21 Allergies Allergy/AdvReac Type Severity Reaction Status Date / Time oxycodone [From Percocet] AdvReac Unverified 02/20/21 12:53 Penicillins AdvReac Unverified 02/20/21 12:53 General Stated Complaint: Seizure FORD: 3 Review of Systems <Danielito Esquivel MD - Last Filed: 02/20/21 14:58> Narrative: Previously on Keppra, not taking Lamictal. No recent illness. Fully immunized against Covid team. No fall or other injury today. Patient notes mild headache and upper back pain. Patient's states he did have some right anterior chest pain 2 days ago. 8 systems reviewed and otherwise negative. PFSH <Danielito Esquivel MD - Last Filed: 02/20/21 14:58> All Active Problems (Updated 02/20/21 @ 18:02 by Lillie Dumont DO) Compression fracture of thoracic vertebra (Acute) Rib fractures (Acute) Seizure (Acute) Social History Smoking/Tobacco Use Status: Never Smoking risk assessment performed?: Yes Alcohol Intake: never Substance use type: does not use Do you feel safe at home: Yes Do you feel safe in your relationship?: Yes Exam <Danielito Esquivel MD - Last Filed: 02/20/21 14:58> Narrative Exam Narrative: GEN: awake, alert, oriented 3. Pleasant, well groomed, interactive. HEAD: Normocephalic, atraumatic ENT: Mucous membranes moist, External ear exam unremarkable EYES: PERRL, EOMI NECK: Full ROM, no KEE, no menigismus Back: The left upper thoracic paraspinous musculature is tense and tender to palpation. No midline step-off deformity. CHEST/RESP: Nontender, clear to auscultation bilateral, no wheeze/rhonchi/rales CARDIOVASCULAR: RRR, no murmur, rub ginger. 2+ Rad pulse bilateral ABDOMEN: Soft, nontender, no mass. +Bowel sounds EXT: Full ROM, no edema, no rash Neuro: Grossly normal neurologic exam, conversant, interactive. Motor 5 out of 5 in the bilateral upper extremities. Cranial nerves II through XII intact. Psych: Speech fluent, thoughts congruent, affect normal Course <Danielito Esquivel MD - Last Filed: 02/20/21 14:58> Vital Signs Vital signs: Vital Signs Temperature 36.7 C 02/20/21 12:47 Pulse 73 02/20/21 12:47 Respiratory Rate 18 02/20/21 12:47 Blood Pressure 162/103 H 02/20/21 12:47 Pulse Oximetry 91 L 02/20/21 12:47 Temperature 36.7 C 02/20/21 12:47 Temperature Source Oral 02/20/21 12:47 Pulse 73 02/20/21 12:47 Respiratory Rate 18 02/20/21 12:47 Blood Pressure 162/103 H 02/20/21 12:47 Blood Pressure Position Sitting 02/20/21 12:47 Pulse Oximetry 91 L 02/20/21 12:47 Oxygen Delivery Method Room Air 02/20/21 12:47 Oxygen Flow Rate 0 02/20/21 12:47 Sign Out <Danielito Esquivel MD - Last Filed: 02/20/21 14:58> Sign Out Data: Sign Out Comment: R arm tonic clonic movement, followup labs, imaging, consider d/w neurology Last updated by Danielito Esquivel MD at 02/20/21 14:50
[2021-02-20 13:29] LABS: Abs Immature Grans 0.04 10^3/uL (0.0-0.06); Absolute Basophil Count 0.02 10^3/uL (0.0-0.2); Absolute Eosinophil Count 0.06 10^3/uL (0.0-0.7); Absolute Lymphocyte Count 0.63 10^3/uL (1.2-3.4); Absolute Monocyte Count 0.41 10^3/uL (0.1-0.8); Absolute Neutrophil Count 6.08 10^3/uL (1.2-6.7); Basophils % 0.3; Eosinophils % 0.8; HCT 43.9 % (40.0-50.0); HGB 14.1 g/dL (13.5-17.5); Immature Grans % 0.6; Lymphocytes % 8.7; MCH 30.3 pg (27.0-33.0); MCHC 32.1 % (32.0-36.0); MCV 94.2 fL (80-95); Monocytes % 5.7; Neutrophils % 83.9; Nucleated RBC 0 %; Platelet Count 181 10^3/uL (130-400); RBC 4.66 10^6/uL (4.36-5.78); RDW 13.1 % (11.8-14.1); RDW-SD 44.6 fL; WBC 7.24 10^3/uL (4.4-10.8)
[2021-02-20] MEDS: Normal Saline 1,000 ML 150 ML IV (13:30)
[2021-02-20] MEDS: LORazepam 2 MG/ML VIAL 0.5 MG IVP (13:39)
[2021-02-20] MEDS: ACETAMINOPHEN 1,000 MG/100 ML BTL 400 MG IVPB (13:40)
[2021-02-20 14:03] LABS: ALT 32 U/L (16-63); AST 29 U/L (15-37); Albumin 3.9 g/dL (3.4-5.0); Alkaline Phosphatase 96 U/L (46-116); BUN 16 mg/dL (7-18); Bilirubin, Total 0.6 mg/dL (0.2-1.0); CREATININE 1.1 mg/dL (0.70-1.30); Calcium 8.6 mg/dL (8.5-10.1); Chloride 103 mmol/L (98-107); Glucose 233 mg/dL (74-106); Potassium 4.1 mmol/L (3.5-5.1); Sodium 139 mmol/L (136-145); Total Protein 6.9 g/dL (6.4-8.2)
--- NOTE | 2021-02-20 14:45 | DI.CT_ITS ---
Exam(s) CT THORAX ABD/PEL CTA EXAM: CT THORAX ABD/PEL CTA CLINICAL HISTORY: Upper back pain, hypertension. TECHNIQUE: Imaging Protocol: Axial CT angiography was performed with multi-slice acquisition and m ulti-planar and/or 3D reconstructions. CONTRAST MATERIAL: Intravenous: Omnipaque 350 Contrast volume:100 mL Oral: No COMPARISON: CT RENAL COLIC WO CONTRAST from 04/27/2016 CT RENAL COLIC WO CONTRAST from 04/27/2016 CR XR CHEST 2V PA LATERAL from 12/18/2019 CR XR CHEST 2V PA LATERAL from 12/18/2019 CR XR CHEST 2V PA LATERAL from 02/20/2021 FINDINGS: CHEST: Tracheobronchial tree: Patent where visualized. Pulmonary parenchyma: There are dependent small infiltrates in the lung bases. No architectural dist ortion. Pulmonary Arteries: No evidence of filling defect to suggest pulmonary emboli. Mediastinum and Megha: No dominant adenopathy or fluid collection. There is a small hiatal hernia. Visualized thyroid: Unremarkable. Pleura: No effusion or pneumothorax. Heart: Mild cardiomegaly. Coronary artery calcifications are present. No pericardial effusion. Aorta: Thoracic aorta non-dilated. Atherosclerosis. No evidence of dissection. Soft Tissues: Unremarkable. Bones: There are subacute nondisplaced healing right rib fractures.There is a T5 compression fracture deformity which appears subacute. There is loss of approximately 20 percent of the height of the ve rtebral body. No retropulsion is identified. ABDOMEN AND PELVIS: Abdomen: Celiac axis/mesenteric arteries: No evidence of occlusion or significant stenosis. Atherosclerosis. Renal Arteries: No evidence of occlusion or significant stenosis. There is a single renal artery per fusing each kidney. Atherosclerosis. Aorta: No evidence of occlusion or significant stenosis. No aneurysm or dissection. Atherosclerosi s. Pelvis: Iliac Arteries: No evidence of occlusion or significant stenosis. Atherosclerosis. Common Femoral Arteries: No evidence of occlusion or significant stenosis. There is atherosclerosis and moderately severe stenosis involving the proximal left femoral artery. ABDOMEN: Liver: There is again seen a hypodense mass in the right lobe of the liver. There does appear to be peripheral enhancement and this may represent a hemangioma. A CT scan or MRI of the liver using the hepatic hemangioma protocol may be obtained for further evaluation. No measurable mass. Portal, Superior Mesenteric, and Splenic Veins: Unremarkable. Gallbladder and Biliary Tract: No radiodense calculus or dilation. Pancreas: Normal density, no abnormal calcifications or inflammatory process. Spleen: Normal. Adrenals: No masses seen. Kidneys: Normal size, contour and axis. Nonobstructing right renal calculi. No masses seen. Bowel: No obstruction or bowel wall thickening. Appendix is unremarkable. There is a large amount of stool in the rectum which may reflect fecal impaction. Peritoneal Cavity: No ascites, collection or mesenteric inflammatory response. No free air. Lymph Nodes: Within normal limits. Bones: Multilevel degenerative changes in the lumbar spine. Soft Tissues: Unremarkable. PELVIS: Bladder: Symmetric distention, no gross wall thickening. Reproductive Organs: Unremarkable as visualized. Lymph Nodes: Within normal limits. Bones: Within normal limits. IMPRESSION: 1. There is a T5 compression fracture which appears subacute. 2. Subacute healing nondisplaced right rib fractures. 3. No acute abdominal or pelvic process. 4. Stable hypodense mass in the right lobe of the liver. 5. Atherosclerosis of the abdominal aorta and its runoff with moderately severe is stenosis at the or igin of the left femoral artery. 6. Results of this exam have been verbally communicated with provider. RADIATION DOSE DELIVERED: 855.19mGy.cm Total DLP 855.19mGy.cm Total DLP DATA REPOSITORY: All CT scans at this facility are submitted to the National Radiology Data Registry (NRDR) Dose Index Registry (DIR) with the [employer] (ACR). RADIATION OPTIMIZATION: All CT scans at this facility use at least one of these dose optimization te chniques: automated exposure control; mA and/or kV adjustment per patient size (includes targeted exa ms where dose is matched to clinical indication); or iterative reconstruction.
[2021-02-20 15:11] LABS: Bilirubin Negative (Negative); Blood Trace-intact (Negative); Clarity Clear (Clear); Glucose 500 mg/dL (Negative); Ketones Negative (Negative); Leukocyte Esterase Negative (Negative); Nitrite Negative (Negative); Specific Gravity >= 1.030 (1.005-1.025); Urobilinogen 0.2 EU/dL (Up TO 0.2); pH 6.5 (5-8)
[2021-02-20 15:12] LABS: Troponin I < 0.05 ng/mL (<0.06)
[2021-02-20] MEDS: Omnipaque 350 MG/ML 100 ML BTL IJ (15:19)
[2021-02-20 15:25] LABS: Bacteria Negative HPF (Negative); C & S Indicated? Yes; Casts Negative LPF (Negative); Crystals Negative HPF (Negative); Epithelial Cells Negative HPF (Negative); Mucus Negative (Negative); Other Cells Negative (Negative)
[2021-02-20] MEDS: Normal Saline 250 ML IV (17:10)
[2021-02-20] MEDS: HYDROcodone 5/Acetaminophen 325 TAB PO (17:44)
[2021-02-20] MEDS: lamoTRIgine 100 MG TAB PO (17:45)
--- NOTE | 2021-02-20 21:59 | NUR.NOTE ---
prior to discharge ,pt dressed with assist and took 5 steps to the WC he stated feeling much better Nursing Note:
== END 2021-02-20 18:56 | disposition home or self-care (01) ==
PROVIDERS: Emergency Medicine; Emergency Provider Physician Assistant; PCP Family Medicine
DX: S22.050A Wedge compression fracture of T5-T6 vertebra, initial encounter for closed fracture (principal); S22.31XA Fracture of one rib, right side, initial encounter for closed fracture; X58.XXXA Exposure to other specified factors, initial encounter; R56.9 Unspecified convulsions; M54.89 Other dorsalgia; I10 Essential (primary) hypertension
CPT/HCPCS: 71275; 74177; 80053; 93005; 96361; 96365; 96375; 99285; 70450; 71046; 81003; 81015; 84484; 85025; 87086; 93010; 99284; J0131; J2060; J3490

== ENCOUNTER 2021-11-26 09:12 | Inpatient (IN) | payer MEDICARE, SELFPAY ==
[2021-11-26] VITALS (36 sets, daily range): BP systolic 89–146; BP diastolic 35–114; PULSE 48–108; RESP 7–33; TEMP 36.2–40.3; O2SAT 89–99
[2021-11-26 10:04] LABS: Abs Immature Grans 0.02 10^3/uL (0.0-0.06); Absolute Basophil Count 0.01 10^3/uL (0.0-0.2); Absolute Eosinophil Count 0.01 10^3/uL (0.0-0.7); Absolute Lymphocyte Count 0.42 10^3/uL (1.2-3.4); Absolute Monocyte Count 1.33 10^3/uL (0.1-0.8); Absolute Neutrophil Count 3.66 10^3/uL (1.2-6.7); Basophils % 0.2; Eosinophils % 0.2; HCT 39.3 % (40.0-50.0); HGB 13.1 g/dL (13.5-17.5); Immature Grans % 0.4; Lymphocytes % 7.7; MCH 31.4 pg (27.0-33.0); MCHC 33.3 % (32.0-36.0); MCV 94 fL (80-95); MPV 9.5 fL (8.0-11.0); Monocytes % 24.4; Neutrophils % 67.1; Platelet Count 129 10^3/uL (130-400); RBC 4.17 10^6/uL (4.36-5.78); RDW 13.2 % (11.8-14.1); RDW-SD 45.1 fL; WBC 5.45 10^3/uL (4.4-10.8)
--- NOTE | 2021-11-26 10:20 | W.ED.GENAD ---
Discharge Plan Disposition Patient Disposition: [facility] INPATIENT Condition: Fair Discharge Details Clinical Impression: COVID-19, Fever, Generalized weakness, Hypoxia Admit Date/Time: 11/26/21 11:56 Admit Provider: Quincy Lucia Attending Provider: Quincy Lucia Primary Care Provider: Jordon Padron ED Provider: Lillie Dumont Discharge Data Discharge Date/Time-TO BE ENTERED AT DEPARTURE: 11/26/21 17:23 Medical Decision Making 86-year-old male with a history of dementia, hypertension, hyperlipidemia, SC with 2 coronary stents presents from home with feeling feverish, headache, sore throat, nasal congestion, decreased appetite and difficulty ambulating for the past few days. Oral temp on arrival 100.3. Rectal temp 100.4. Patient feels significantly warm and is laying in bed with clear rhinorrhea and dry mucous membranes. He had wheezing noted throughout which cleared with coughing. Suspect COVID or pneumonia. Will obtain screening labs, Fluvid, urinalysis, cxr, give a dose of IV Tylenol, DuoNeb, IV Solu-Medrol, bolus IV fluids and reassess. Discussed CODE STATUS with at bedside and she states he has a full code. Labs and imaging reviewed. COVID positive. Magnesium 1.7. Troponin negative. Procalcitonin 0.3. Urinalysis notes 5-10 WBCs few bacteria, negative leukocyte esterase and negative nitrite. Chest x-ray no obvious acute disease. Will admit for IV remdesivir, IV fluids and continued monitoring. Case discussed with hospitalist who accepts patient for admission. Medical Records Medical records reviewed: Yes I reviewed the patient's medical records. Imaging Data Radiologic Study: Radiologist's impression: ?XR PORTABLE CHEST AP CLINICAL HISTORY:? cough, fever, r/o acute disease TECHNIQUE:? 2D digital imaging was performed of the chest. One image was obtained.? An AP view was obtained. COMPARISON:? CR XR CHEST 2V PA ? LATERAL from 12/18/2019 CR XR CHEST 2V PA ? LATERAL from 02/20/2021 FINDINGS: There are low lung volumes with crowding of the pulmonary vasculature.? MEDIASTINUM: Normal.? HEART: Normal. PULMONARY VASCULATURE: Normal. LUNGS: Chronic changes are seen in the lung mathis.? No focal consolidating infiltrates. PLEURAL SPACE: No pleural effusion or pneumothorax. BONE:Within normal limits for the patient's age. OTHER FINDINGS:Normal.? IMPRESSION: No definite acute pulmonary process.? Follow-up as clinically appropriate.? Lab Data Lab results reviewed: Yes I reviewed the patient's lab results. Labs: 11/26/21 11:05 Blood Blood Culture - Pending 11/26/21 10:10 Urine - Reflex from Ua Urine Culture - Pending 11/26/21 09:50 Blood Blood Culture - Pending Laboratory Tests Range/Units 11/26/21 11/26/21 11/26/21 09:50 09:50 09:50 WBC (4.4-10.8) 10^3/uL 5.45 RBC (4.36-5.78) 10^6/uL 4.17 L Hgb (13.5-17.5) g/dL 13.1 L Hct (40.0-50.0) % 39.3 L MCV (80-95) fL 94 MCH (27.0-33.0) pg 31.4 MCHC (32.0-36.0) % 33.3 RDW (11.8-14.1) % 13.2 Plt Count (130-400) 10^3/uL 129 L MPV (8.0-11.0) fL 9.5 Immature Gran % 0.4 Neutrophils % 67.1 Lymphocytes % 7.7 Monocytes % 24.4 Eosinophils % 0.2 Basophils % 0.2 Nucleated RBC % (0.0-0.3) % 0.0 Absolute Neutrophils (1.2-6.7) 10^3/uL 3.66 Absolute Lymphocytes (1.2-3.4) 10^3/uL 0.42 L Absolute Monocytes (0.1-0.8) 10^3/uL 1.33 H Absolute Eosinophils (0.0-0.7) 10^3/uL 0.01 Absolute Basophils (0.0-0.2) 10^3/uL 0.01 VBG Lactate (0.6-1.4) mmol/L Sodium (136-145) mmol/L 135 L Potassium (3.5-5.1) mmol/L 3.8 Chloride (98-107) mmol/L 99 Carbon Dioxide (21.0-32.0) mmol/L 27.6 Anion Gap (3-11) mmol/L 8.4 BUN (7-18) mg/dL 17 Creatinine (0.70-1.30) mg/dL 1.2 Est GFR (CKD-EPI 2020) (mL/min/1.73m2) 59.26 Glucose (74-106) mg/dL 117 H Calcium (8.5-10.1) mg/dL 8.7 Magnesium (1.8-2.4) mg/dL 1.7 L Total Bilirubin (0.2-1.0) mg/dL 0.7 AST (15-37) U/L 45 H ALT (16-63) U/L 44 Alkaline Phosphatase (46-116) U/L 78 Troponin I (<or=60) ng/L < 50 Total Protein (6.4-8.2) g/dL 7.0 Albumin (3.4-5.0) g/dL 3.7 Procalcitonin ng/mL Urine Color (Yellow) Urine Clarity (Clear) Urine pH (5-8) Ur Specific [place] (1.005-1.025) Urine Protein (Negative) mg/dL Urine Ketones (Negative) mg/dL Urine Blood (Negative) Urine Nitrite (Negative) Urine Bilirubin (Negative) Urine Urobilinogen (Up TO 0.2) EU/dL Ur Leukocyte Esterase (Negative) Urine RBC (0-2) HPF Urine WBC (0-5) HPF Ur Epithelial Cells (Negative) HPF Urine Crystals (Negative) HPF Urine Bacteria (Negative) HPF Urine Casts (Negative) LPF Urine Mucus (Negative) Ur Culture Indicated? Urine Glucose (Negative) mg/dL COVID-19 Source Not Applicable SARS-CoV-2 (PCR) (Negative) Positive A Influenza Type A (PCR) (Negative) Negative Influenza Type B (PCR) (Negative) Negative RSV (PCR) (Negative) Negative Range/Units 11/26/21 11/26/21 11/26/21 10:10 11:05 11:05 WBC (4.4-10.8) 10^3/uL RBC (4.36-5.78) 10^6/uL Hgb (13.5-17.5) g/dL Hct (40.0-50.0) % MCV (80-95) fL MCH (27.0-33.0) pg MCHC (32.0-36.0) % RDW (11.8-14.1) % Plt Count (130-400) 10^3/uL MPV (8.0-11.0) fL Immature Gran % Neutrophils % Lymphocytes % Monocytes % Eosinophils % Basophils % Nucleated RBC % (0.0-0.3) % Absolute Neutrophils (1.2-6.7) 10^3/uL Absolute Lymphocytes (1.2-3.4) 10^3/uL Absolute Monocytes (0.1-0.8) 10^3/uL Absolute Eosinophils (0.0-0.7) 10^3/uL Absolute Basophils (0.0-0.2) 10^3/uL VBG Lactate (0.6-1.4) mmol/L 1.0 Sodium (136-145) mmol/L Potassium (3.5-5.1) mmol/L Chloride (98-107) mmol/L Carbon Dioxide (21.0-32.0) mmol/L Anion Gap (3-11) mmol/L BUN (7-18) mg/dL Creatinine (0.70-1.30) mg/dL Est GFR (CKD-EPI 2020) (mL/min/1.73m2) Glucose (74-106) mg/dL Calcium (8.5-10.1) mg/dL Magnesium (1.8-2.4) mg/dL Total Bilirubin (0.2-1.0) mg/dL AST (15-37) U/L ALT (16-63) U/L Alkaline Phosphatase (46-116) U/L Troponin I (<or=60) ng/L Total Protein (6.4-8.2) g/dL Albumin (3.4-5.0) g/dL Procalcitonin ng/mL 0.3 Urine Color (Yellow) Yellow Urine Clarity (Clear) Clear Urine pH (5-8) 7.0 Ur Specific [place] (1.005-1.025) 1.025 Urine Protein (Negative) mg/dL 100 H Urine Ketones (Negative) mg/dL 15 H Urine Blood (Negative) Small H Urine Nitrite (Negative) Negative Urine Bilirubin (Negative) Negative Urine Urobilinogen (Up TO 0.2) EU/dL 0.2 Ur Leukocyte Esterase (Negative) Negative Urine RBC (0-2) HPF 5-10 H Urine WBC (0-5) HPF 0-2 Ur Epithelial Cells (Negative) HPF Rare Urine Crystals (Negative) HPF Negative Urine Bacteria (Negative) HPF Few Urine Casts (Negative) LPF Negative Urine Mucus (Negative) Negative Ur Culture Indicated? Yes Urine Glucose (Negative) mg/dL Negative COVID-19 Source SARS-CoV-2 (PCR) (Negative) Influenza Type A (PCR) (Negative) Influenza Type B (PCR) (Negative) RSV (PCR) (Negative) HPI General Mode of arrival: wheelchair. Date/Time Provider Initiated Documentation: 11/26/21 09:30. Limitations to Documentation: altered mental status and physical limitation. Information obtained by: family. HPI Narrative: Patient is an 86-year-old M w/ a h/o dementia, hypertension, hyperlipidemia, SC with 2 coronary stents, UTI presenting from home for increasing weakness, headache, sore throat and feeling feverish for the past few days. states that patient first complained of headache a few days ago. 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 She states he has had a cough that is occasionally productive of yellow sputum. She states she also has had runny nose. states that patient has not been eating or drinking much for the past few days. She states today he was unable to ambulate as he had to put in one of the other due to weakness this morning. She states he is normally able to ambulate to the bathroom but had an accident in his depends this morning. Denies any vomiting but has had loose stools. She states she has not given him any Tylenol this morning. Related Data Home Medications Medication Instructions Recorded Confirmed acetaminophen 500 mg tablet (Mapap 1,000 mg PO BID 04/27/16 11/26/21 Extra Strength) albuterol sulfate 90 mcg/actuation 200 puff inhalation Q4H PRN PRN 04/27/16 11/26/21 aerosol inhaler (Proventil HFA) clopidogrel 75 mg tablet (Plavix) 75 mg PO DAILY 04/27/16 11/26/21 nitroglycerin 0.4 mg sublingual 0.4 mg sublingual DIRECTED PRN 04/27/16 11/26/21 tablet (Nitrostat) pantoprazole 40 mg tablet,delayed 40 mg PO DAILY 04/27/16 11/26/21 release aspirin 81 mg tablet,delayed 81 mg PO DAILY 12/18/19 11/26/21 release atorvastatin 40 mg tablet (Lipitor) 40 mg PO DAILY 12/18/19 11/26/21 docosahexaenoic acid (dha)-epa 120 120 cap PO DAILY 12/18/19 11/26/21 mg-180 mg capsule latanoprost 0.005 % eye drops 0.005 drp ophthalmic (eye) DAILY 12/18/19 11/26/21 (Xalatan) losartan 25 mg tablet 25 mg PO DAILY 12/18/19 11/26/21 citalopram 10 mg tablet 10 mg PO DAILY 02/20/21 11/26/21 fluticasone furoate 50 100 mcg inhalation DAILY 02/20/21 11/26/21 mcg/actuation blister powder for inhalation therapeutic multivitamin 1 tab PO DAILY 02/20/21 11/26/21 divalproex 500 mg tablet,extended 500 mg PO BID 11/26/21 11/26/21 release 24 hr donepezil 10 mg tablet 10 mg PO HS 11/26/21 11/26/21 lamotrigine 25 mg chewable 100 mg PO BID 11/26/21 11/26/21 dispersible tablet melatonin 10 mg disintegrating 15 mg PO HS PRN 11/26/21 11/26/21 tablet metoprolol succinate 25 mg 25 mg PO DAILY 11/26/21 11/26/21 tablet,extended release 24 hr omega-3 fatty acids 1,000 mg PO DAILY 11/26/21 11/26/21 tamsulosin 0.4 mg capsule 0.4 mg PO DAILY 11/26/21 11/26/21 Allergies Allergy/AdvReac Type Severity Reaction Status Date / Time oxycodone [From Percocet] AdvReac Unverified 02/20/21 12:53 Penicillins AdvReac Unverified 02/20/21 12:53 General Stated Complaint: GenMedical FORD: 3 Review of Systems All systems reviewed & are unremarkable except as noted in HPI and below Constitutional Constitutional: Denies chills, Denies excessive sweating, Reports fatigue, Denies fever(s), Reports poor appetite, Reports weakness and Denies weight loss Eyes Eyes: Reports system reviewed and no additional complaints, except as documented and Denies blurry vision ENT Ears, Nose, Mouth, and Throat: Denies vertigo, Denies dizziness, Denies otalgia, Denies nasal congestion, Reports sore throat and Denies throat swelling Cardiovascular Cardiovascular: Denies chest pain, Denies syncope, Denies rapid heart rate and Denies dyspnea Respiratory Respiratory: Denies chest congestion, Reports cough, Denies pain on inspiration and Denies dyspnea Gastrointestinal Gastrointestinal: Denies abdominal pain, Denies diarrhea and Denies vomiting Genitourinary Genitourinary: Denies hematuria, Denies dysuria and Denies flank pain Musculoskeletal Musculoskeletal: Denies back pain and Denies joint swelling Integumentary/Breasts Skin/Breast: Denies lesions and Denies rash Neurologic Neurologic: Denies behavioral changes, Denies confusion, Denies vertigo, Denies dizziness, Denies syncope, Denies localized weakness and Reports weakness Psychiatric Psychiatric: Denies behavioral changes, Denies confusion and Denies depression Endocrine Endocrine: Denies excessive sweating and Reports fatigue Hematologic/Lymphatic Hematologic/Lymphatic: Denies easy bruising and Denies lymphadenopathy Allergic/Immunologic Allergic/Immunologic: Denies throat swelling PFSH All Active Problems (Updated 11/28/21 @ 09:26 by Shefali Brown NP) Palliative care patient (Acute) Discharge planning issues (Acute) DVT prophylaxis (Acute) COVID-19 (Acute) Fever (Acute) Generalized weakness (Acute) Hypoxia (Acute) Compression fracture of thoracic vertebra (Acute) Rib fractures (Acute) Seizure (Acute) Medical History Dementia HTN (hypertension) Hx of hyperlipidemia Kidney stones Lung cancer Myocardial infarction UTI (urinary tract infection) Surgical History History of coronary artery stent placement History of tonsillectomy Social History Smoking/Tobacco Use Status: Never Smoking risk assessment performed?: Yes Alcohol Intake: never Substance use type: does not use Do you feel safe at home: Yes Do you feel safe in your relationship?: Yes Exam Const General: cooperative and lethargic HENMT Head: normal to inspection Ears: hearing grossly normal bilaterally and external ears normal General nose exam: external nose normal Face and sinus: normal facial exam Mouth: mucous membranes dry Throat: uvula midline, no peritonsillar masses and posterior oropharynx abnormal erythema (mild) Eyes General: appearance normal, both eyes and all related structures Eyelids: eyelids normal Pupils: PERRL EOM: EOM intact bilaterally Neck Neck: normal visual inspection Lymphatic: no lymphadenopathy noted Chest Chest: normal inspection of the chest Resp Effort & Inspection: normal respiratory effort and able to speak in complete sentences Auscultation: rhonchi and wheezes scattered wheezes (cleared with coughing) Cardio Rate: regular rate Rhythm: regular rhythm GI Inspection: normal to inspection Palpation: soft, not firm, no guarding, no hepatosplenomegaly, no masses and nontender Auscultation: hypoactive bowel sounds Back/Spine/Pelvis Back: no CVA tenderness Skin General skin exam: no rashes or lesions noted Neuro General: patient alert and patient awake Cognition: normal cognition Speech: speech normal Gait: normal gait Motor: muscle tone normal throughout Sensory Exam: no sensory deficits noted Extrem General: normal to inspection, full ROM, capillary refill normal and no edema Psych Appearance: grossly normal Mental Status: mental status grossly normal Speech and Movement: speech and movement normal Affect: normal affect Thought Process: normal Course Vital Signs Vital signs: Vital Signs Temperature 100.3 F H 11/26/21 09:31 Pulse 88 11/26/21 09:31 Respiratory Rate 22 11/26/21 09:31 Blood Pressure 146/62 H 11/26/21 09:31 Pulse Oximetry 93 11/26/21 09:31 Temperature 100.3 F H 11/26/21 09:31 Temperature Source Oral 11/26/21 09:31 Pulse 88 11/26/21 09:31 Respiratory Rate 20 11/26/21 09:52 Respiratory Effort Non-Labored 11/26/21 09:52 Respiratory Depth Normal 11/26/21 09:52 Respiratory Pattern Normal 11/26/21 09:52 Blood Pressure 146/62 H 11/26/21 09:31 Blood Pressure Position Supine 11/26/21 09:31 Pulse Oximetry 93 11/26/21 09:31 Oxygen Delivery Method Room Air 11/26/21 09:31 Oxygen Flow Rate 0 11/26/21 09:31 Pain Level 0 11/26/21 09:31 Lab/Test Results Lab/Test Results: 11/26/21 09:50 Blood Blood Culture - Pending 11/26/21 09:50 Blood Blood Culture - Pending Laboratory Tests Range/Units 11/26/21 09:50 WBC (4.4-10.8) 10^3/uL 5.45 RBC (4.36-5.78) 10^6/uL 4.17 L Hgb (13.5-17.5) g/dL 13.1 L Hct (40.0-50.0) % 39.3 L MCV (80-95) fL 94 MCH (27.0-33.0) pg 31.4 MCHC (32.0-36.0) % 33.3 RDW (11.8-14.1) % 13.2 Plt Count (130-400) 10^3/uL 129 L MPV (8.0-11.0) fL 9.5 Immature Gran % 0.4 Neutrophils % 67.1 Lymphocytes % 7.7 Monocytes % 24.4 Eosinophils % 0.2 Basophils % 0.2 Nucleated RBC % (0.0-0.3) % 0.0 Absolute Neutrophils (1.2-6.7) 10^3/uL 3.66 Absolute Lymphocytes (1.2-3.4) 10^3/uL 0.42 L Absolute Monocytes (0.1-0.8) 10^3/uL 1.33 H Absolute Eosinophils (0.0-0.7) 10^3/uL 0.01 Absolute Basophils (0.0-0.2) 10^3/uL 0.01
[2021-11-26 10:30] LABS: ALT 44 U/L (16-63); AST 45 U/L (15-37); Albumin 3.7 g/dL (3.4-5.0); Alkaline Phosphatase 78 U/L (46-116); Anion Gap 8.4 mmol/L (3-11); BUN 17 mg/dL (7-18); Bilirubin, Total 0.7 mg/dL (0.2-1.0); CO2 27.6 mmol/L (21.0-32.0); CREATININE 1.2 mg/dL (0.70-1.30); Calcium 8.7 mg/dL (8.5-10.1); Chloride 99 mmol/L (98-107); Estimated GFR 59.26 (mL/min/1.73m2); Glucose 117 mg/dL (74-106); Magnesium 1.7 mg/dL (1.8-2.4); Potassium 3.8 mmol/L (3.5-5.1); Sodium 135 mmol/L (136-145); Troponin I < 50 ng/L (<or=60)
--- NOTE | 2021-11-26 10:30 | DI.RAD_ITS ---
Exam(s) XR PORTABLE CHEST AP EXAM: XR PORTABLE CHEST AP CLINICAL HISTORY: cough, fever, r/o acute disease TECHNIQUE: 2D digital imaging was performed of the chest. One image was obtained. An AP view was ob tained. COMPARISON: CR XR CHEST 2V PA LATERAL from 12/18/2019 CR XR CHEST 2V PA LATERAL from 02/20/2021 FINDINGS: There are low lung volumes with crowding of the pulmonary vasculature. MEDIASTINUM: Normal. HEART: Normal. PULMONARY VASCULATURE: Normal. LUNGS: Chronic changes are seen in the lung mathis. No focal consolidating infiltrates. PLEURAL SPACE: No pleural effusion or pneumothorax. BONE:Within normal limits for the patient's age. OTHER FINDINGS:Normal. IMPRESSION: No definite acute pulmonary process. Follow-up as clinically appropriate. DATA REPOSITORY: RADIATION DOSE DELIVERED:
[2021-11-26] MEDS: methylPREDNISolone SUCC 125 MG VIAL IVP (10:33)
[2021-11-26 10:34] LABS: Bilirubin Negative (Negative); Blood Small (Negative); Clarity Clear (Clear); Glucose Negative (Negative); Ketones 15 mg/dL (Negative); Leukocyte Esterase Negative (Negative); Nitrite Negative (Negative); Specific Gravity 1.025 (1.005-1.025); Urobilinogen 0.2 EU/dL (Up TO 0.2)
[2021-11-26] MEDS: ACETAMINOPHEN 1,000 MG/100 ML BTL 400 MG IVPB (10:34)
[2021-11-26] MEDS: Albuterol/Ipratropium 3 ML UPD VIAL UPD (10:34)
[2021-11-26] MEDS: Normal Saline 1,000 ML 1000 ML IV (10:35)
[2021-11-26 10:43] LABS: Bacteria Few HPF (Negative); C & S Indicated? Yes; Casts Negative LPF (Negative); Crystals Negative HPF (Negative); Epithelial Cells Rare HPF (Negative); Mucus Negative (Negative); WBC 0-2 HPF (0-5)
[2021-11-26 11:08] LABS: Influenza A PCR Negative (Negative); Influenza B PCR Negative (Negative); RSV PCR Negative (Negative)
[2021-11-26 11:10] LABS: COVID-19 PCR Positive (Negative)
[2021-11-26 11:55] LABS: Procalcitonin 0.3 ng/mL
[2021-11-26 12:44] LABS: Creatine Kinase 115 U/L (39-308)
[2021-11-26] MEDS: REMDESIVIR 200 MG in Normal Saline 250 ML 250 MG IVPB (12:49)
[2021-11-26 13:01] LABS: ALT 42 U/L (16-63); AST 44 U/L (15-37); Albumin 3.7 g/dL (3.4-5.0); Alkaline Phosphatase 77 U/L (46-116); Bilirubin, Direct 0.2 mg/dL (0.0-0.2); Bilirubin, Total 0.6 mg/dL (0.2-1.0); C-Reactive Protein 3.65 mg/dL (0.0-0.3); Total Protein 7.1 g/dL (6.4-8.2)
[2021-11-26 13:23] LABS: Ferritin 279 ng/mL (26-388)
[2021-11-26 13:55] LABS: INR 1.1 (0.9-1.1); PTT Activated 30.2 sec (21.0-27.5); Prothrombin Time 11.3 sec (9.3-11.0)
[2021-11-26 14:12] LABS: D-Dimer 591 ng/mlFEU (<500)
--- NOTE | 2021-11-26 14:14 | TELEP.MEDR_ITS ---
Date of service: 11/26/21 Time of Service: 14:16 [facility] Allergies Allergies: oxycodone [From Percocet] Adverse Reaction (Unverified 02/20/21 12:53) Penicillins Adverse Reaction (Unverified 02/20/21 12:53) patietn and both stated no known allergies Interview Person Interviewed: patient and Quality Quality of Interview/Accuracy of Medication List: Good Sources Sources used to compile medication lsit: [employer] Medication List and [employer] Changes made to Home Medication List: ADDITIONS: donepezil, divalproex, metoprolo, melatonin, fish oil DELETIONS: tamsulosin, Senokot, duplicate multiple vitamin CHANGES: n/a Additional Notes Additional Notes: Melatonin is actually taken as a 10mg tablet and a 5mg red gummy , gummy not found in data base total evening dose is 15mg. lamotrigine is dose is 100mg bid as 4 x 25mg chewable tablets. Patient and do not remember sennkot or tamsulosin and do not think he takes either of these Depakote the patient says he takes this., the thinks he may have inadvertently stopped taking this for an unknown amount of time and is back on tis now. there is a recent refill this week indicating he is taking the Divalproex. Recommended Changes Recommended Changes(reason for recommendation): none Attestation: The home medication list is now updated to the best of my knowledge and is ready to be reconciled by the provider. Please contact [facility] Pharmacist at for any questions.
[2021-11-26] MEDS: Normal Saline 250 ML 500 ML IV (16:25)
[2021-11-26] MEDS: lamoTRIgine 100 MG TAB PO (21:31)
[2021-11-26] MEDS: Atorvastatin 40 MG TAB PO (21:31)
[2021-11-26] MEDS: Divalproex Sodium 500 MG TAB.ER.24H PO (21:31)
[2021-11-26] MEDS: Donepezil 5 MG TAB 10 MG PO (21:31)
[2021-11-26] MEDS: Enoxaparin 60 MG/0.6 ML SYR SC (21:32)
[2021-11-26] MEDS: Ipratropium/Albuterol 4 GM 120 PUFF INH IH (21:33)
[2021-11-27] VITALS (9 sets, daily range): BP systolic 98–131; BP diastolic 53–75; PULSE 47–73; RESP 12–24; TEMP 36.1–37.3; O2SAT 95–97
[2021-11-27 08:11] LABS: Abs Immature Grans 0.04 10^3/uL (0.0-0.06); HCT 35.3 % (40.0-50.0); HGB 12.2 g/dL (13.5-17.5); MCH 31.8 pg (27.0-33.0); MCHC 34.6 % (32.0-36.0); MCV 92 fL (80-95); MPV 9.7 fL (8.0-11.0); Platelet Count 128 10^3/uL (130-400); RBC 3.84 10^6/uL (4.36-5.78); RDW 13.2 % (11.8-14.1); RDW-SD 44.2 fL; WBC 9.26 10^3/uL (4.4-10.8)
[2021-11-27] MEDS: Ipratropium/Albuterol 4 GM 120 PUFF INH IH ×4 (08:11→20:49)
[2021-11-27] MEDS: lamoTRIgine 100 MG TAB PO ×2 (08:17→20:49)
[2021-11-27] MEDS: Pantoprazole 40 MG TABCR PO (08:17)
[2021-11-27] MEDS: Losartan 25 MG TAB PO (08:17)
[2021-11-27] MEDS: Clopidogrel 75 MG TAB PO (08:17)
[2021-11-27] MEDS: Tamsulosin 0.4 MG CAPCR PO (08:17)
[2021-11-27] MEDS: Multivitamin TAB 1 TAB PO (08:17)
[2021-11-27] MEDS: Enoxaparin 60 MG/0.6 ML SYR SC ×2 (08:18→20:49)
[2021-11-27] MEDS: Metoprolol CR 25 MG TABCR PO (08:18)
[2021-11-27] MEDS: Divalproex Sodium 500 MG TAB.ER.24H PO ×2 (08:18→20:49)
[2021-11-27] MEDS: Citalopram 10 MG TAB PO (08:18)
[2021-11-27 08:38] LABS: Anion Gap 8.7 mmol/L (3-11); BUN 21 mg/dL (7-18); C-Reactive Protein 12.92 mg/dL (0.0-0.3); CO2 27.3 mmol/L (21.0-32.0); CREATININE 0.8 mg/dL (0.70-1.30); Calcium 8.3 mg/dL (8.5-10.1); Chloride 104 mmol/L (98-107); Estimated GFR 86.73 (mL/min/1.73m2); Glucose 104 mg/dL (74-106); Magnesium 2.2 mg/dL (1.8-2.4); Sodium 140 mmol/L (136-145)
--- NOTE | 2021-11-27 08:56 | W.PM.HP.N ---
Date of service: 11/26/21 Time of Service: 17:00 Assessment and Plan Assessment and plan (1) COVID-19: Status: Acute Assessment and plan: IV fluids Remdesivir for 5 days Acetaminophen for fever, aches (2) Generalized weakness: Status: Acute Assessment and plan: He is feeling weak from Covid and having a fever. He will rest and conserve energy until he is strong enough to mobilize safely (3) Fever: Status: Acute Assessment and plan: Temp unknow at home, 100.4 here orally, he is receiving tylenol that is effective in decreasing temperature and helping with aches and pains. (4) DVT prophylaxis: Status: Acute Assessment and plan: Enoxaparin 60 mg BID (5) Discharge planning issues: Status: Acute Assessment and plan: Home with family when stable History of Present Illness History of Present Illness Chief Complaint: Fever, headache and sore throaat Narrative: This is a 86-year-old male with a past medical history of dementia, hypertension, hyperlipidemia, NH with 2 coronary stents, and UTI presented to the [facility] emergency department from home for increasing weakness, headache, sore throat and feeling feverish for the past few days.? stated that the patient first complained of headache a few days ago.? 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 She stated he has a cough that is occasionally productive of yellow sputum and he has had runny nose.? reports he has not been eating or drinking much for the past few days.?Today, she stated, he was unable to ambulate due to weakness and he is normally able to ambulate to the bathroom but had an accident in his depends this morning.? Denies any vomiting but has had loose stools.? He has not had any antipyretics. Oral temp on arrival to the ED was 100.3.?He had wheezing noted throughout which cleared with coughing.?Labs and imaging reviewed.? COVID positive.? Magnesium 1.7.? Troponin negative.? Procalcitonin 0.3.? Urinalysis notes 5-10 WBCs few bacteria, negative leukocyte esterase and negative nitrite.? Chest x-ray no obvious acute disease. He is being admitted to the medical floor for IV remdesivir, IV fluids and continued monitoring. Review of Systems All systems reviewed & are unremarkable except as noted in HPI and below PFSH All Active Problems (Updated 11/27/21 @ 09:18 by Miladis Yen NP) Discharge planning issues (Acute) DVT prophylaxis (Acute) COVID-19 (Acute) Fever (Acute) Generalized weakness (Acute) Hypoxia (Acute) Compression fracture of thoracic vertebra (Acute) Rib fractures (Acute) Seizure (Acute) Medical History (Updated 11/27/21 @ 09:18 by Miladis Yen NP) Dementia HTN (hypertension) Hx of hyperlipidemia Kidney stones Lung cancer Myocardial infarction UTI (urinary tract infection) Surgical History (Updated 11/26/21 @ 10:22 by Lillie Dumont DO) History of coronary artery stent placement History of tonsillectomy Social History Smoking/Tobacco Use Status: Never Smoking risk assessment performed?: Yes Alcohol Intake: never Substance use type: does not use Do you feel safe at home: Yes Do you feel safe in your relationship?: Yes Meds Allergies and Home Medications Allergies Allergy/AdvReac Type Severity Reaction Status Date / Time oxycodone [From Percocet] AdvReac Unverified 02/20/21 12:53 Penicillins AdvReac Unverified 02/20/21 12:53 Home Medications Medication Instructions Recorded Confirmed Type acetaminophen 500 mg tablet (Mapap 1,000 mg PO BID 04/27/16 11/26/21 History Extra Strength) albuterol sulfate 90 mcg/actuation 200 puff inhalation Q4H PRN PRN 04/27/16 11/26/21 History aerosol inhaler (Proventil HFA) clopidogrel 75 mg tablet (Plavix) 75 mg PO DAILY 04/27/16 11/26/21 History nitroglycerin 0.4 mg sublingual 0.4 mg sublingual DIRECTED PRN 04/27/16 11/26/21 History tablet (Nitrostat) pantoprazole 40 mg tablet,delayed 40 mg PO DAILY 04/27/16 11/26/21 History release aspirin 81 mg tablet,delayed 81 mg PO DAILY 12/18/19 11/26/21 History release atorvastatin 40 mg tablet (Lipitor) 40 mg PO DAILY 12/18/19 11/26/21 History docosahexaenoic acid (dha)-epa 120 120 cap PO DAILY 10/06/20 09/15/22 History mg-180 mg capsule latanoprost 0.005 % eye drops 0.005 drp ophthalmic (eye) DAILY 12/18/19 11/26/21 History (Xalatan) losartan 25 mg tablet 25 mg PO DAILY 12/18/19 11/26/21 History citalopram 10 mg tablet 10 mg PO DAILY 02/20/21 11/26/21 History fluticasone furoate 50 100 mcg inhalation DAILY 02/20/21 11/26/21 History mcg/actuation blister powder for inhalation therapeutic multivitamin 1 tab PO DAILY 02/20/21 11/26/21 History divalproex 500 mg tablet,extended 500 mg PO BID 11/26/21 11/26/21 History release 24 hr donepezil 10 mg tablet 10 mg PO HS 11/26/21 11/26/21 History lamotrigine 25 mg chewable 100 mg PO BID 11/26/21 11/26/21 History dispersible tablet melatonin 10 mg disintegrating 15 mg PO HS PRN 11/26/21 11/26/21 History tablet metoprolol succinate 25 mg 25 mg PO DAILY 11/26/21 11/26/21 History tablet,extended release 24 hr omega-3 fatty acids 1,000 mg PO DAILY 11/26/21 11/26/21 History tamsulosin 0.4 mg capsule 0.4 mg PO DAILY 11/26/21 11/26/21 History Exam Const General: cooperative HENUT Head: normal to inspection Ears: hearing grossly normal bilaterally and external ears normal General nose exam: external nose normal Face and sinus: normal facial exam Mouth: mucous membranes dry Throat: uvula midline, no peritonsillar masses and posterior oropharynx abnormal erythema (mild) Eyes General: appearance normal, both eyes and all related structures Eyelids: eyelids normal Pupils: PERRL EOM: EOM intact bilaterally Neck Neck: normal visual inspection Lymphatic: no lymphadenopathy noted Chest Chest: normal inspection of the chest Resp Effort & Inspection: normal respiratory effort and able to speak in complete sentences Auscultation: wheezes scattered wheezes (cleared with coughing) Cardio Rate: regular rate Rhythm: regular rhythm GI Inspection: normal to inspection Palpation: soft, not firm, no guarding, no hepatosplenomegaly, no masses and nontender Back/Spine/Pelvis Back: no CVA tenderness Skin General skin exam: no rashes or lesions noted Neuro General: patient alert and patient awake Cognition: normal cognition Speech: speech normal Sensory Exam: no sensory deficits noted Extrem General: normal to inspection, full ROM, capillary refill normal and no edema Psych Appearance: grossly normal Mental Status: mental status grossly normal Speech and Movement: speech and movement normal Affect: normal affect Thought Process: normal Results Labs Result diagrams: 11/27/21 06:51 11/27/21 06:51 Labs: Laboratory Results - last 24 hr 11/26/21 11/26/21 11/26/21 09:50 09:50 09:50 WBC 5.45 RBC 4.17 L Hgb 13.1 L Hct 39.3 L MCV 94 MCH 31.4 MCHC 33.3 RDW 13.2 Plt Count 129 L MPV 9.5 Immature Gran % 0.4 Neutrophils % 67.1 Lymphocytes % 7.7 Monocytes % 24.4 Eosinophils % 0.2 Basophils % 0.2 Nucleated RBC % 0.0 Absolute Neutrophils 3.66 Absolute Lymphocytes 0.42 L Absolute Monocytes 1.33 H Absolute Eosinophils 0.01 Absolute Basophils 0.01 PT INR APTT D-Dimer VBG Lactate Sodium 135 L Potassium 3.8 Chloride 99 Carbon Dioxide 27.6 Anion Gap 8.4 BUN 17 Creatinine 1.2 Est GFR (CKD-EPI 2020) 59.26 Glucose 117 H Calcium 8.7 Magnesium 1.7 L Ferritin Total Bilirubin 0.7 Conjugated Bilirubin AST 45 H ALT 44 Alkaline Phosphatase 78 Creatine Kinase Troponin I < 50 C-Reactive Protein Total Protein 7.0 Albumin 3.7 Procalcitonin Urine Color Urine Clarity Urine pH Ur Specific [place] Urine Protein Urine Ketones Urine Blood Urine Nitrite Urine Bilirubin Urine Urobilinogen Ur Leukocyte Esterase Urine RBC Urine WBC Ur Epithelial Cells Urine Crystals Urine Bacteria Urine Casts Urine Mucus Ur Culture Indicated? Urine Glucose COVID-19 Source Not Applicable SARS-CoV-2 (PCR) Positive A Influenza Type A (PCR) Negative Influenza Type B (PCR) Negative RSV (PCR) Negative Add-On Test Request 11/26/21 11/26/21 11/26/21 09:50 09:50 10:10 WBC RBC Hgb Hct MCV MCH MCHC RDW Plt Count MPV Immature Gran % Neutrophils % Lymphocytes % Monocytes % Eosinophils % Basophils % Nucleated RBC % Absolute Neutrophils Absolute Lymphocytes Absolute Monocytes Absolute Eosinophils Absolute Basophils PT INR APTT D-Dimer VBG Lactate Sodium Potassium Chloride Carbon Dioxide Anion Gap BUN Creatinine Est GFR (CKD-EPI 2020) Glucose Calcium Magnesium Ferritin 279 Total Bilirubin 0.6 Conjugated Bilirubin 0.2 AST 44 H ALT 42 Alkaline Phosphatase 77 Creatine Kinase Troponin I C-Reactive Protein 3.65 H Total Protein 7.1 Albumin 3.7 Procalcitonin Urine Color Yellow Urine Clarity Clear Urine pH 7.0 Ur Specific [place] 1.025 Urine Protein 100 H Urine Ketones 15 H Urine Blood Small H Urine Nitrite Negative Urine Bilirubin Negative Urine Urobilinogen 0.2 Ur Leukocyte Esterase Negative Urine RBC 5-10 H Urine WBC 0-2 Ur Epithelial Cells Rare Urine Crystals Negative Urine Bacteria Few Urine Casts Negative Urine Mucus Negative Ur Culture Indicated? Yes Urine Glucose Negative COVID-19 Source SARS-CoV-2 (PCR) Influenza Type A (PCR) Influenza Type B (PCR) RSV (PCR) Add-On Test Request TNP 11/26/21 11/26/21 11/26/21 11:05 11:05 11:05 WBC RBC Hgb Hct MCV MCH MCHC RDW Plt Count MPV Immature Gran % Neutrophils % Lymphocytes % Monocytes % Eosinophils % Basophils % Nucleated RBC % Absolute Neutrophils Absolute Lymphocytes Absolute Monocytes Absolute Eosinophils Absolute Basophils PT INR APTT D-Dimer VBG Lactate 1.0 Sodium Potassium Chloride Carbon Dioxide Anion Gap BUN Creatinine Est GFR (CKD-EPI 2020) Glucose Calcium Magnesium Ferritin Total Bilirubin Conjugated Bilirubin AST ALT Alkaline Phosphatase Creatine Kinase 115 Troponin I C-Reactive Protein Total Protein Albumin Procalcitonin 0.3 Urine Color Urine Clarity Urine pH Ur Specific [place] Urine Protein Urine Ketones Urine Blood Urine Nitrite Urine Bilirubin Urine Urobilinogen Ur Leukocyte Esterase Urine RBC Urine WBC Ur Epithelial Cells Urine Crystals Urine Bacteria Urine Casts Urine Mucus Ur Culture Indicated? Urine Glucose COVID-19 Source SARS-CoV-2 (PCR) Influenza Type A (PCR) Influenza Type B (PCR) RSV (PCR) Add-On Test Request 11/26/21 11/27/21 13:25 06:51 WBC RBC Hgb Hct MCV MCH MCHC RDW Plt Count MPV Immature Gran % Neutrophils % Lymphocytes % Monocytes % Eosinophils % Basophils % Nucleated RBC % Absolute Neutrophils Absolute Lymphocytes Absolute Monocytes Absolute Eosinophils Absolute Basophils PT 11.3 H INR 1.1 APTT 30.2 H D-Dimer 591 H VBG Lactate Sodium 140 Potassium 4.0 Chloride 104 Carbon Dioxide 27.3 Anion Gap 8.7 BUN 21 H Creatinine 0.8 Est GFR (CKD-EPI 2020) 86.73 Glucose 104 Calcium 8.3 L Magnesium 2.2 Ferritin Total Bilirubin Conjugated Bilirubin AST ALT Alkaline Phosphatase Creatine Kinase Troponin I C-Reactive Protein 12.92 H Total Protein Albumin Procalcitonin Urine Color Urine Clarity Urine pH Ur Specific [place] Urine Protein Urine Ketones Urine Blood Urine Nitrite Urine Bilirubin Urine Urobilinogen Ur Leukocyte Esterase Urine RBC Urine WBC Ur Epithelial Cells Urine Crystals Urine Bacteria Urine Casts Urine Mucus Ur Culture Indicated? Urine Glucose COVID-19 Source SARS-CoV-2 (PCR) Influenza Type A (PCR) Influenza Type B (PCR) RSV (PCR) Add-On Test Request Last Vital Signs Temp 37.0 C 11/27/21 07:38 Pulse 53 L 11/27/21 07:38 Resp 16 11/27/21 07:38 BP 114/75 11/27/21 07:38 Pulse Ox 97 11/27/21 07:38
[2021-11-27 09:01] LABS: Bands % 5
[2021-11-27 09:02] LABS: Absolute Lymphocyte Count 1.48 10^3/uL (1.2-3.4); Absolute Monocyte Count 1.48 10^3/uL (0.1-0.8); Diff Comment Manual Differential; RBC Morphology Normal
--- NOTE | 2021-11-27 09:39 | PGE_ITS ---
Date of Service Date of service: 11/27/21 Time of Service: 14:00 Assessment and Plan Assessment and plan (1) COVID-19: Status: Acute Assessment and plan: IV fluids - NS @ 100/h Remdesivir for day 2 Acetaminophen for fever, aches No oxygen requirement SPO2 > 95% RA WBC 9.26 BCx and Urine Cx neg to date (2) Generalized weakness: Status: Acute Assessment and plan: He is feeling somewhat improved. He will rest and conserve energy until he is strong enough to mobilize safely (3) Fever: Status: Acute Assessment and plan: Temp unknow at home, up to 40 in the ED yesterday orally, he is receiving tylenol that is effective in decreasing temperature, afebrile since admission and helping with aches and pains. (4) DVT prophylaxis: Status: Acute Assessment and plan: Enoxaparin 60 mg BID (5) Discharge planning issues: Status: Acute Assessment and plan: Home with family when stable Subjective Subjective Patient reports: no new complaints, tolerating a regular diet, voiding w/o difficulty and afebrile; denies diarrhea, nausea, vomiting or shortness of breath Exam Const General: cooperative HENMT Head: normal to inspection Ears: hearing grossly normal bilaterally and external ears normal General nose exam: external nose normal Face and sinus: normal facial exam Mouth: mucous membranes dry Throat: uvula midline, no peritonsillar masses and posterior oropharynx abnormal erythema (mild) Eyes General: appearance normal, both eyes and all related structures Eyelids: eyelids normal Pupils: PERRL EOM: EOM intact bilaterally Neck Neck: normal visual inspection Lymphatic: no lymphadenopathy noted Chest Chest: normal inspection of the chest Resp Effort & Inspection: normal respiratory effort and able to speak in complete sentences Auscultation: clear to auscultation bilaterally, diminished lung sounds, no rales, no rhonchi and no wheezes Cardio Rate: regular rate Rhythm: regular rhythm GI Inspection: normal to inspection Palpation: soft, not firm, no guarding, no hepatosplenomegaly, no masses and nontender Back/Spine/Pelvis Back: no CVA tenderness Skin General skin exam: no rashes or lesions noted Neuro General: patient alert and patient awake Cognition: normal cognition Speech: speech normal Sensory Exam: no sensory deficits noted Extrem General: normal to inspection, full ROM, capillary refill normal and no edema Psych Appearance: grossly normal Mental Status: mental status grossly normal Speech and Movement: speech and movement normal Affect: normal affect Thought Process: normal Objective Last Vital Signs Temp 37.0 C 11/27/21 07:38 Pulse 53 L 11/27/21 07:38 Resp 16 11/27/21 07:38 BP 114/75 11/27/21 07:38 Pulse Ox 97 11/27/21 07:38 Laboratory Results - last 24 hr 11/26/21 11/26/21 11/26/21 09:50 09:50 09:50 WBC 5.45 RBC 4.17 L Hgb 13.1 L Hct 39.3 L MCV 94 MCH 31.4 MCHC 33.3 RDW 13.2 Plt Count 129 L MPV 9.5 Immature Gran % 0.4 Neutrophils % 67.1 Band Neutrophils % Lymphocytes % 7.7 Monocytes % 24.4 Eosinophils % 0.2 Basophils % 0.2 Nucleated RBC % 0.0 Absolute Neutrophils 3.66 Absolute Lymphocytes 0.42 L Absolute Monocytes 1.33 H Absolute Eosinophils 0.01 Absolute Basophils 0.01 RBC Morphology PT INR APTT D-Dimer VBG Lactate Sodium 135 L Potassium 3.8 Chloride 99 Carbon Dioxide 27.6 Anion Gap 8.4 BUN 17 Creatinine 1.2 Est GFR (CKD-EPI 2020) 59.26 Glucose 117 H Calcium 8.7 Magnesium 1.7 L Ferritin Total Bilirubin 0.7 Conjugated Bilirubin AST 45 H ALT 44 Alkaline Phosphatase 78 Creatine Kinase Troponin I < 50 C-Reactive Protein Total Protein 7.0 Albumin 3.7 Procalcitonin Urine Color Urine Clarity Urine pH Ur Specific [place] Urine Protein Urine Ketones Urine Blood Urine Nitrite Urine Bilirubin Urine Urobilinogen Ur Leukocyte Esterase Urine RBC Urine WBC Ur Epithelial Cells Urine Crystals Urine Bacteria Urine Casts Urine Mucus Ur Culture Indicated? Urine Glucose COVID-19 Source Not Applicable SARS-CoV-2 (PCR) Positive A Influenza Type A (PCR) Negative Influenza Type B (PCR) Negative RSV (PCR) Negative Add-On Test Request 11/26/21 11/26/21 11/26/21 09:50 09:50 10:10 WBC RBC Hgb Hct MCV MCH MCHC RDW Plt Count MPV Immature Gran % Neutrophils % Band Neutrophils % Lymphocytes % Monocytes % Eosinophils % Basophils % Nucleated RBC % Absolute Neutrophils Absolute Lymphocytes Absolute Monocytes Absolute Eosinophils Absolute Basophils RBC Morphology PT INR APTT D-Dimer VBG Lactate Sodium Potassium Chloride Carbon Dioxide Anion Gap BUN Creatinine Est GFR (CKD-EPI 2020) Glucose Calcium Magnesium Ferritin 279 Total Bilirubin 0.6 Conjugated Bilirubin 0.2 AST 44 H ALT 42 Alkaline Phosphatase 77 Creatine Kinase Troponin I C-Reactive Protein 3.65 H Total Protein 7.1 Albumin 3.7 Procalcitonin Urine Color Yellow Urine Clarity Clear Urine pH 7.0 Ur Specific [place] 1.025 Urine Protein 100 H Urine Ketones 15 H Urine Blood Small H Urine Nitrite Negative Urine Bilirubin Negative Urine Urobilinogen 0.2 Ur Leukocyte Esterase Negative Urine RBC 5-10 H Urine WBC 0-2 Ur Epithelial Cells Rare Urine Crystals Negative Urine Bacteria Few Urine Casts Negative Urine Mucus Negative Ur Culture Indicated? Yes Urine Glucose Negative COVID-19 Source SARS-CoV-2 (PCR) Influenza Type A (PCR) Influenza Type B (PCR) RSV (PCR) Add-On Test Request TNP 11/26/21 11/26/21 11/26/21 11:05 11:05 11:05 WBC RBC Hgb Hct MCV MCH MCHC RDW Plt Count MPV Immature Gran % Neutrophils % Band Neutrophils % Lymphocytes % Monocytes % Eosinophils % Basophils % Nucleated RBC % Absolute Neutrophils Absolute Lymphocytes Absolute Monocytes Absolute Eosinophils Absolute Basophils RBC Morphology PT INR APTT D-Dimer VBG Lactate 1.0 Sodium Potassium Chloride Carbon Dioxide Anion Gap BUN Creatinine Est GFR (CKD-EPI 2020) Glucose Calcium Magnesium Ferritin Total Bilirubin Conjugated Bilirubin AST ALT Alkaline Phosphatase Creatine Kinase 115 Troponin I C-Reactive Protein Total Protein Albumin Procalcitonin 0.3 Urine Color Urine Clarity Urine pH Ur Specific [place] Urine Protein Urine Ketones Urine Blood Urine Nitrite Urine Bilirubin Urine Urobilinogen Ur Leukocyte Esterase Urine RBC Urine WBC Ur Epithelial Cells Urine Crystals Urine Bacteria Urine Casts Urine Mucus Ur Culture Indicated? Urine Glucose COVID-19 Source SARS-CoV-2 (PCR) Influenza Type A (PCR) Influenza Type B (PCR) RSV (PCR) Add-On Test Request 11/26/21 11/27/21 11/27/21 13:25 06:51 06:51 WBC 9.26 RBC 3.84 L Hgb 12.2 L Hct 35.3 L MCV 92 MCH 31.8 MCHC 34.6 RDW 13.2 Plt Count 128 L MPV 9.7 Immature Gran % 0.0 Neutrophils % 63.0 Band Neutrophils % 5 Lymphocytes % 16.0 Monocytes % 16.0 Eosinophils % 0.0 Basophils % 0.0 Nucleated RBC % 0.0 Absolute Neutrophils 6.30 Absolute Lymphocytes 1.48 Absolute Monocytes 1.48 H Absolute Eosinophils 0.00 Absolute Basophils 0.00 RBC Morphology Normal PT 11.3 H INR 1.1 APTT 30.2 H D-Dimer 591 H VBG Lactate Sodium 140 Potassium 4.0 Chloride 104 Carbon Dioxide 27.3 Anion Gap 8.7 BUN 21 H Creatinine 0.8 Est GFR (CKD-EPI 2020) 86.73 Glucose 104 Calcium 8.3 L Magnesium 2.2 Ferritin Total Bilirubin Conjugated Bilirubin AST ALT Alkaline Phosphatase Creatine Kinase Troponin I C-Reactive Protein 12.92 H Total Protein Albumin Procalcitonin Urine Color Urine Clarity Urine pH Ur Specific [place] Urine Protein Urine Ketones Urine Blood Urine Nitrite Urine Bilirubin Urine Urobilinogen Ur Leukocyte Esterase Urine RBC Urine WBC Ur Epithelial Cells Urine Crystals Urine Bacteria Urine Casts Urine Mucus Ur Culture Indicated? Urine Glucose COVID-19 Source SARS-CoV-2 (PCR) Influenza Type A (PCR) Influenza Type B (PCR) RSV (PCR) Add-On Test Request
[2021-11-27] MEDS: REMDESIVIR 100 MG in Normal Saline 250 ML 250 MG IVPB (12:46)
--- NOTE | 2021-11-27 13:52 | INITIAL_ITS ---
- If Service Date Differs Date of service: 11/27/21 Time of Service: 13:52 Care Management Initial Assess REASON FOR HOSPITALIZATION:: COVID-19,Generalized weakness PAST MEDICAL HISTORY/PAST SURGICAL HISTORY:: All Active Problems (Updated 11/27/21 @ 09:18 by Miladis Yen NP). Discharge planning issues (Acute). DVT prophylaxis (Acute). COVID-19 (Acute). Fever (Acute). Generalized weakness (Acute). Hypoxia (Acute). Compression fracture of thoracic vertebra (Acute). Rib fractures (Acute). Seizure (Acute). Medical History (Updated 11/27/21 @ 09:18 by Miladis Yen NP). Dementia. HTN (hypertension). Hx of hyperlipidemia. Kidney stones. Lung cancer. Myocardial infarction. UTI (urinary tract infection). Surgical History (Updated 11/26/21 @ 10:22 by Lillie Dumont DO). History of coronary artery stent placement. 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 He descibes himself as being active and independent at baseline. His Aletha provides his transportation. He has 4 children, sharing that his daughter is a RN who lives in [place] and a son Jp who at 19 years old from a motorcycle accident. He also has 2 other adult children that have addiction to alcohol. CURRENT FUNCTIONAL STATUS:: CM spoke with pt via phone, due to covid precautions. Dimitrios seems upbeat, alert, oriented and easy to engage in conversation. He has no concerns at this time and is starting to feel better. He hopes that he can discharge home tomorrow. ADVANCE DIRECTIVES:: On file, [facility] is Aletha queenie Mortensen. agent is Cecilia Cortes. Has patient been provided with info about the portal/API?: Yes Did the patient sign up for the portal?: No CODE STATUS:: Full Code INSURANCE COVERAGE / FINANCIAL ISSUES:: AARP. Medicare CURRENT HOME/COMMUNITY SERVICES/EQUIPMENT:: None PRIMARY CARE PHYSICIAN:: Jordon Padron POTENTIAL DISCHARGE NEEDS:: Discharge plan, follow up appointments, assessment for increased community supports. PATIENT/FAMILY EDUCATION NEEDS:: Review discharge instructions, limitations, medications and plan to follow community providers. Review ask me three. TRANSPORTATION:: Via private vehicle with . PLAN:: Dimitrios is being closely monitored and receiving Remdisivir and IV hydration. Palliative met with Dimitrios today. Anticipate, Dimitrios will be discharged home when medically ready per provider. New [facility] services will be ordered if there is an anticipated need at the time of discharge.
--- NOTE | 2021-11-27 14:05 | PCPN_ITS ---
Date of service: 11/27/21 Time of Service: 14:05 Subjective Subjective Interval history since last seen: Mr. Mortensen was seen in his room at [facility]. He is currently hospitalized for COVID. He was sitting up in the chair, he had just finished his lunch. Objective Last Vital Signs Temp 36.9 C 11/27/21 11:08 Pulse 65 11/27/21 11:08 Resp 18 11/27/21 11:08 BP 105/53 L 11/27/21 11:08 Pulse Ox 97 11/27/21 11:08 Laboratory Results - last 24 hr 11/26/21 11/27/21 11/27/21 13:25 06:51 06:51 WBC 9.26 RBC 3.84 L Hgb 12.2 L Hct 35.3 L MCV 92 MCH 31.8 MCHC 34.6 RDW 13.2 Plt Count 128 L MPV 9.7 Immature Gran % 0.0 Neutrophils % 63.0 Band Neutrophils % 5 Lymphocytes % 16.0 Monocytes % 16.0 Eosinophils % 0.0 Basophils % 0.0 Nucleated RBC % 0.0 Absolute Neutrophils 6.30 Absolute Lymphocytes 1.48 Absolute Monocytes 1.48 H Absolute Eosinophils 0.00 Absolute Basophils 0.00 RBC Morphology Normal D-Dimer 591 H Sodium 140 Potassium 4.0 Chloride 104 Carbon Dioxide 27.3 Anion Gap 8.7 BUN 21 H Creatinine 0.8 Est GFR (CKD-EPI 2020) 86.73 Glucose 104 Calcium 8.3 L Magnesium 2.2 C-Reactive Protein 12.92 H
[2021-11-27] MEDS: Normal Saline 1,000 ML 100 ML IV (16:31)
[2021-11-27 19:30] LABS: Fibrinogen 365 mg/dL (171-384)
[2021-11-27] MEDS: Atorvastatin 40 MG TAB PO (20:49)
[2021-11-27] MEDS: Donepezil 5 MG TAB 10 MG PO (20:49)
[2021-11-27 23:14] LABS: Legionella Ag Detection Urine Negative (Negative)
[2021-11-28] VITALS (11 sets, daily range): BP systolic 97–148; BP diastolic 51–72; PULSE 62–83; RESP 16–22; TEMP 36.6–38.7; O2SAT 93–96
[2021-11-28] MEDS: Normal Saline 1,000 ML 100 ML IV ×2 (01:31→15:54)
[2021-11-28 08:35] LABS: Abs Immature Grans 0.03 10^3/uL (0.0-0.06); Absolute Eosinophil Count 0.18 10^3/uL (0.0-0.7); Absolute Lymphocyte Count 0.89 10^3/uL (1.2-3.4); Absolute Monocyte Count 1.09 10^3/uL (0.1-0.8); Absolute Neutrophil Count 4.72 10^3/uL (1.2-6.7); Eosinophils % 2.6; HCT 34.4 % (40.0-50.0); HGB 11.5 g/dL (13.5-17.5); Immature Grans % 0.4; Lymphocytes % 12.9; MCH 31.3 pg (27.0-33.0); MCHC 33.4 % (32.0-36.0); MCV 94 fL (80-95); Monocytes % 15.8; Neutrophils % 68.3; Platelet Count 126 10^3/uL (130-400); RBC 3.67 10^6/uL (4.36-5.78); WBC 6.91 10^3/uL (4.4-10.8)
[2021-11-28] MEDS: Tamsulosin 0.4 MG CAPCR PO (08:49)
[2021-11-28] MEDS: Divalproex Sodium 500 MG TAB.ER.24H PO ×2 (08:49→20:42)
[2021-11-28] MEDS: Enoxaparin 60 MG/0.6 ML SYR SC ×2 (08:49→20:41)
[2021-11-28] MEDS: Pantoprazole 40 MG TABCR PO (08:50)
[2021-11-28] MEDS: Acetaminophen 325 MG TAB PO ×2 (08:50→23:53)
[2021-11-28] MEDS: Citalopram 10 MG TAB PO (08:50)
[2021-11-28] MEDS: Multivitamin TAB 1 TAB PO (08:50)
[2021-11-28] MEDS: Metoprolol CR 25 MG TABCR PO (08:50)
[2021-11-28] MEDS: Losartan 25 MG TAB PO (08:51)
[2021-11-28] MEDS: Clopidogrel 75 MG TAB PO (08:51)
[2021-11-28] MEDS: lamoTRIgine 100 MG TAB PO ×2 (08:51→20:42)
[2021-11-28] MEDS: Ipratropium/Albuterol 4 GM 120 PUFF INH IH ×4 (09:00→20:41)
[2021-11-28] MEDS: Mometasone 220 MCG 14 DOSE INHALER 1 PUFF IH (09:00)
[2021-11-28 09:07] LABS: ALT 36 U/L (16-63); AST 47 U/L (15-37); Albumin 2.5 g/dL (3.4-5.0); Alkaline Phosphatase 61 U/L (46-116); Anion Gap 6.4 mmol/L (3-11); BUN 19 mg/dL (7-18); Bilirubin, Total 0.3 mg/dL (0.2-1.0); CO2 27.6 mmol/L (21.0-32.0); CREATININE 0.7 mg/dL (0.70-1.30); Calcium 7.6 mg/dL (8.5-10.1); Chloride 104 mmol/L (98-107); Glucose 80 mg/dL (74-106); Magnesium 1.9 mg/dL (1.8-2.4); Potassium 3.7 mmol/L (3.5-5.1); Sodium 138 mmol/L (136-145); Total Protein 5.2 g/dL (6.4-8.2)
--- NOTE | 2021-11-28 09:19 | W.PALLCONSUL ---
Date of service: 11/27/21 Time of Service: 14:05 History of Present Illness Narrative: Mr. Mortensen was seen in his room at [facility]. He is currently hospitalized for COVID. He was sitting up in the chair, he had just finished his lunch. He reports that he is feeling better overall. He continues with a productive cough. He is not on oxygen. He does not appear ill. Discussed what Palliative care offers. Discussed the importance of naming a health care agent. Discussed CODE STATUS. He is clear that he is a DNR, however, he questions if he would accept intubation for a trial period. He would like to discuss with his and meet again after he is discharged from the hospital. He lives at home on [address] with his . They are active. He reports cutting limbs off trees with his helping him the day prior to his presentation to [facility]. When talking about end of life decisions, he states he does not want to leave his . He is worried about how she would do without him. He would want her to first because he feels he could handle the loss better than her. They have been for many years. His goal is to stay with her. He is talking about selling his home at some point but not sure where they would go. Assessment and Plan Assessment and plan (1) COVID-19: Status: Acute (2) Generalized weakness: Status: Acute (3) Compression fracture of thoracic vertebra: Status: Acute (4) Seizure: Status: Acute (5) Palliative care patient: Status: Acute Assessment and plan: Mr. Mortensen is a very pleasant 86-year-old man with a past medical history significant for lung cancer, [place], mild dementia, seizures, who is currently hospitalized for COVID-19. Palliative care was consulted to discuss goals of care and address CODE STATUS. Discussed the importance of assigning a healthcare agent to make decisions if he is unable. Discussed CODE STATUS. He is clear that he is a DNR but he questions if he may want intubation for a trial period. He would like to discuss CODE STATUS and healthcare agent with his prior to completing any official forms. He is feeling better overall. He is sitting up in the chair, he is not on oxygen, he ate all of his lunch. He is engaging in conversation. He is interested in follow-up with palliative care as an outpatient. Will ask the office to contact him to set up a visit in 2 months. Review of Systems All systems reviewed & are unremarkable except as noted in HPI and below PFSH All Active Problems (Updated 11/28/21 @ 09:26 by Shefali Brown NP) Palliative care patient (Acute) Discharge planning issues (Acute) DVT prophylaxis (Acute) COVID-19 (Acute) Fever (Acute) Generalized weakness (Acute) Hypoxia (Acute) Compression fracture of thoracic vertebra (Acute) Rib fractures (Acute) Seizure (Acute) Medical History Dementia HTN (hypertension) Hx of hyperlipidemia Kidney stones Lung cancer Myocardial infarction UTI (urinary tract infection) Surgical History History of coronary artery stent placement History of tonsillectomy Social History Smoking/Tobacco Use Status: Never Smoking risk assessment performed?: Yes Alcohol Intake: never Substance use type: does not use Do you feel safe at home: Yes Do you feel safe in your relationship?: Yes Exam Narrative Exam Narrative: General: Very pleasant, elderly man, sitting up in the chair in his hospital room, he is alert and oriented, talkative. In NAD. HEENT: normocephalic, atraumatic, EOMI, mmm. Neck: supple, no JVD. Respiratory: respirations appear even and unlabored, not wearing O2, occasional cough noted during visit. Extremities: moves all 4 extremities freely, no edema. Results Last Vital Signs Temp 37.3 C 11/28/21 09:04 Pulse 68 11/28/21 09:04 Resp 18 11/28/21 09:04 BP 126/57 L 11/28/21 09:04 Pulse Ox 93 11/28/21 09:04 Labs Result diagrams: 11/29/21 06:15 11/29/21 06:15 Labs: Laboratory Results - last 24 hr 11/27/21 11/28/21 11/28/21 06:51 07:55 07:55 WBC 6.91 RBC 3.67 L Hgb 11.5 L Hct 34.4 L MCV 94 MCH 31.3 MCHC 33.4 RDW 13.0 Plt Count 126 L MPV 10.0 Immature Gran % 0.4 Neutrophils % 68.3 Lymphocytes % 12.9 Monocytes % 15.8 Eosinophils % 2.6 Basophils % 0.0 Nucleated RBC % 0.0 Absolute Neutrophils 4.72 Absolute Lymphocytes 0.89 L Absolute Monocytes 1.09 H Absolute Eosinophils 0.18 Absolute Basophils 0.00 Fibrinogen 365 Sodium 138 Potassium 3.7 Chloride 104 Carbon Dioxide 27.6 Anion Gap 6.4 BUN 19 H Creatinine 0.7 Est GFR (CKD-EPI 2020) 90.30 Glucose 80 Calcium 7.6 L Magnesium 1.9 Total Bilirubin 0.3 AST 47 H ALT 36 Alkaline Phosphatase 61 Total Protein 5.2 L Albumin 2.5 L
[2021-11-28 10:35] LABS: C-Reactive Protein 6.46 mg/dL (0.0-0.3)
--- NOTE | 2021-11-28 10:54 | IN_ITS ---
PT Notes Visit Reasons: COVID 19 Inpatient Physical Therapy Evaluation Date: 11/28/2021 Referring Doctor: Miladis Yen PT Orders: PT CONSULT: Extended Stay?weakness Precautions: Fall risk Patient Profile/Admitting Diagnosis: 86-year-old male who was admitted yesterday with COVID. 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 Together, they prepare meals, she drives, and is normally independent with all ADLs. Current Functional Limitations: Has a ramp entering his home. Two-story home, but he and his 's bedroom is on the first floor while in the bathroom with a combo tub shower. No grab bars or flexible shower hose or shower chair. He states he is normally independent with getting in and out of the tub although sometimes can be challenging. He is planning on putting in a walk-in shower. Equipment Owned/DME: Has a Rollator type walker at home which he rarely uses Subjective: Patient states that his headache has resolved and he feels that he has a chest cold . He is anxious to return home. Objective: [] General Observation: Enters room the patient is resting comfortably in chair. He appears comfortable and is conversive. Mental Status: Alert and oriented x3 Pain: No complaints of pain offered ROM: Is active and active assisted range of motion shows good functional range of motion which is nonirritable, other than some hypomobility with his talocrural and subtalar joints Strength: Strength is generally rated -5/5 throughout Neuro: LAWANDA's age is +1 and symmetrical, sensations intact to light touch, and has full motor control. Bed Mobility/Transfers: Independent with assuming the supine to sitting is standing positions. Gait: Ambulates independently with standby supervision for 30 feet with a stable gait. He has an anterior flexed posture. Balance: Static Sitting: Independent Dynamic Sitting: Stable Static Standing: Stable slightly wide-based gait Dynamic Standing: Stable. His unilateral standing balance is less than 3 seconds, he is able to place his right foot in front of left without loss of balance, negative Romberg sign Special Tests: Mobility Limitations Standardized Measure [facility] AM-PAC 6 clicks Basic Mobility Inpatient Short Form: Raw Score: 24 standardized Score: 6.94 CMS Score: 0% Informed Consent/Education: Patient instructed in purpose of PT consult and plan of care. Assessment: Patient is a 86 year old male referred to physical therapy services with the diagnosis of COVID. Patient presents with clinical signs and symptoms consistent with diagnosis, as demonstrated by the following impairment level findings: None. Patient is assessed as a Low 07001 complexity based on the following: History: See comorbidities and social history Examination: See above for functional limitations and impairments Presentation: Stable Decision Making: Low complexity based on his clinical findings Goals: Return home Plan of Care/Treatment Plan Today session consisted of evaluation, and patient demonstrated independence with bed mobility activities and Gait. He does not require further physical therapy. DISCHARGE RECOMMENDATIONS: Home with no services TREATMENT CODE/TIME: 47501/60 minutes
[2021-11-28] MEDS: REMDESIVIR 100 MG in Normal Saline 250 ML 250 MG IVPB (11:30)
--- NOTE | 2021-11-28 15:12 | W.PM.PROGNOT ---
Date of Service Date of service: 11/28/21 Time of Service: 15:12 Assessment and Plan Assessment and plan (1) COVID-19: Status: Acute Assessment and plan: IV fluids - NS @ 100/h Remdesivir day 3 Acetaminophen for fever, aches - no fevers noted No oxygen requirement SPO2 > 95% RA WBC 6.91 BCx and Urine Cx neg to date (2) Generalized weakness: Status: Acute Assessment and plan: He is feeling somewhat improved. He will rest and conserve energy until he is strong enough to mobilize safely (3) Fever: Status: Acute Assessment and plan: afebrile since admission - tylenol for aches and pains. (4) DVT prophylaxis: Status: Acute Assessment and plan: Enoxaparin 60 mg BID (5) Discharge planning issues: Status: Acute Assessment and plan: Stable - day 4 of Remdesevir 11/29 Home with family when stable Discussed with Dr Lucia Subjective Subjective Patient reports: no new complaints and feels better Interval history since last seen: No oxygen requirement. Exam Const General: cooperative HENMT Head: normal to inspection Ears: hearing grossly normal bilaterally and external ears normal General nose exam: external nose normal Face and sinus: normal facial exam Mouth: mucous membranes dry Throat: uvula midline, no peritonsillar masses and posterior oropharynx abnormal erythema (mild) Eyes General: appearance normal, both eyes and all related structures Eyelids: eyelids normal Pupils: PERRL EOM: EOM intact bilaterally Neck Neck: normal visual inspection Lymphatic: no lymphadenopathy noted Chest Chest: normal inspection of the chest Resp Effort & Inspection: normal respiratory effort and able to speak in complete sentences Auscultation: clear to auscultation bilaterally, diminished lung sounds, no rales, no rhonchi and no wheezes Cardio Rate: regular rate Rhythm: regular rhythm GI Inspection: normal to inspection Palpation: soft, not firm, no guarding, no hepatosplenomegaly, no masses and nontender Back/Spine/Pelvis Back: no CVA tenderness Skin General skin exam: no rashes or lesions noted Neuro General: patient alert and patient awake Cognition: normal cognition Speech: speech normal Sensory Exam: no sensory deficits noted Extrem General: normal to inspection, full ROM, capillary refill normal and no edema Psych Appearance: grossly normal Mental Status: mental status grossly normal Speech and Movement: speech and movement normal Affect: normal affect Thought Process: normal Objective Last Vital Signs Temp 36.8 C 11/28/21 11:32 Pulse 67 11/28/21 11:32 Resp 16 11/28/21 11:32 BP 97/51 L 11/28/21 11:32 Pulse Ox 96 11/28/21 11:32 Laboratory Results - last 24 hr 11/27/21 11/27/21 11/28/21 03:25 06:51 07:55 WBC RBC Hgb Hct MCV MCH MCHC RDW Plt Count MPV Immature Gran % Neutrophils % Lymphocytes % Monocytes % Eosinophils % Basophils % Nucleated RBC % Absolute Neutrophils Absolute Lymphocytes Absolute Monocytes Absolute Eosinophils Absolute Basophils Fibrinogen 365 Sodium 138 Potassium 3.7 Chloride 104 Carbon Dioxide 27.6 Anion Gap 6.4 BUN 19 H Creatinine 0.7 Est GFR (CKD-EPI 2020) 90.30 Glucose 80 Calcium 7.6 L Magnesium 1.9 Total Bilirubin 0.3 AST 47 H ALT 36 Alkaline Phosphatase 61 C-Reactive Protein Total Protein 5.2 L Albumin 2.5 L Urine Legionella Ag Negative 11/28/21 11/28/21 07:55 07:55 WBC 6.91 RBC 3.67 L Hgb 11.5 L Hct 34.4 L MCV 94 MCH 31.3 MCHC 33.4 RDW 13.0 Plt Count 126 L MPV 10.0 Immature Gran % 0.4 Neutrophils % 68.3 Lymphocytes % 12.9 Monocytes % 15.8 Eosinophils % 2.6 Basophils % 0.0 Nucleated RBC % 0.0 Absolute Neutrophils 4.72 Absolute Lymphocytes 0.89 L Absolute Monocytes 1.09 H Absolute Eosinophils 0.18 Absolute Basophils 0.00 Fibrinogen Sodium Potassium Chloride Carbon Dioxide Anion Gap BUN Creatinine Est GFR (CKD-EPI 2020) Glucose Calcium Magnesium Total Bilirubin AST ALT Alkaline Phosphatase C-Reactive Protein 6.46 H Total Protein Albumin Urine Legionella Ag
[2021-11-28] MEDS: Donepezil 5 MG TAB 10 MG PO (20:42)
[2021-11-28] MEDS: Atorvastatin 40 MG TAB PO (20:42)
[2021-11-29] VITALS (15 sets, daily range): BP systolic 108–159; BP diastolic 59–70; PULSE 56–71; RESP 16–20; TEMP 36.5–38.5; O2SAT 92–95
[2021-11-29] MEDS: Normal Saline 1,000 ML 100 ML IV (03:08)
[2021-11-29 06:30] LABS: Abs Immature Grans 0.03 10^3/uL (0.0-0.06); Absolute Basophil Count 0.01 10^3/uL (0.0-0.2); Absolute Eosinophil Count 0.08 10^3/uL (0.0-0.7); Absolute Lymphocyte Count 1.06 10^3/uL (1.2-3.4); Absolute Neutrophil Count 5.59 10^3/uL (1.2-6.7); Basophils % 0.1; HCT 35.2 % (40.0-50.0); HGB 11.8 g/dL (13.5-17.5); Immature Grans % 0.4; Lymphocytes % 13.3; MCH 31.6 pg (27.0-33.0); MCHC 33.5 % (32.0-36.0); MCV 94 fL (80-95); MPV 9.7 fL (8.0-11.0); Monocytes % 15.1; Neutrophils % 70.1; Platelet Count 135 10^3/uL (130-400); RBC 3.74 10^6/uL (4.36-5.78); RDW 12.8 % (11.8-14.1); RDW-SD 44.6 fL; WBC 7.97 10^3/uL (4.4-10.8)
[2021-11-29 06:51] LABS: BUN 15 mg/dL (7-18); CREATININE 0.9 mg/dL (0.70-1.30); Calcium 7.9 mg/dL (8.5-10.1); Chloride 104 mmol/L (98-107); Glucose 94 mg/dL (74-106); Magnesium 1.9 mg/dL (1.8-2.4); Potassium 3.5 mmol/L (3.5-5.1); Sodium 140 mmol/L (136-145)
[2021-11-29] MEDS: Ipratropium/Albuterol 4 GM 120 PUFF INH IH ×4 (08:47→21:53)
[2021-11-29] MEDS: Mometasone 220 MCG 14 DOSE INHALER 1 PUFF IH (08:47)
[2021-11-29] MEDS: Metoprolol CR 25 MG TABCR PO (09:48)
[2021-11-29] MEDS: Enoxaparin 60 MG/0.6 ML SYR SC ×2 (09:48→21:53)
[2021-11-29] MEDS: Multivitamin TAB 1 TAB PO (09:48)
[2021-11-29] MEDS: Tamsulosin 0.4 MG CAPCR PO (09:48)
[2021-11-29] MEDS: Divalproex Sodium 500 MG TAB.ER.24H PO ×2 (09:48→21:52)
[2021-11-29] MEDS: Clopidogrel 75 MG TAB PO (09:49)
[2021-11-29] MEDS: lamoTRIgine 100 MG TAB PO ×2 (09:49→21:53)
[2021-11-29] MEDS: Losartan 25 MG TAB PO (09:49)
[2021-11-29] MEDS: Pantoprazole 40 MG TABCR PO (09:49)
[2021-11-29] MEDS: Citalopram 10 MG TAB PO (09:49)
[2021-11-29] MEDS: Acetaminophen 325 MG TAB PO (11:47)
[2021-11-29] MEDS: REMDESIVIR 100 MG in Normal Saline 250 ML 250 MG IVPB (11:48)
[2021-11-29 14:07] LABS: HIV-1/2 Ag & Ab Screen Negative (Negative)
[2021-11-29 14:13] LABS: Streptococcus Pneumoniae Ag, U Negative (Negative)
--- NOTE | 2021-11-29 15:50 | W.PM.PROGNOT ---
Date of Service Date of service: 11/29/21 Time of Service: 15:50 Assessment and Plan Assessment and plan (1) COVID-19: Status: Acute Assessment and plan: Remdesivir day 4/5 continue Acetaminophen for fever, aches - max temp overnight 38.7 No oxygen requirement SPO2 > 95% RA BCx and Urine Cx neg to date (2) Generalized weakness: Status: Acute Assessment and plan: He is feeling better today. He will rest and conserve energy until he is strong enough to mobilize safely continue PT (3) Fever: Status: Acute Assessment and plan: cultures negative to date continue tylenol for aches and pains. (4) DVT prophylaxis: Status: Acute Assessment and plan: Enoxaparin 60 mg BID (5) Discharge planning issues: Status: Acute Assessment and plan: Home with family when stable, plan for tomorrow. Discussed with Dr Lucia Subjective Subjective Patient reports: no new complaints, feels better and fever (max temp overnight was 38.7); denies shortness of breath Objective Last Vital Signs Temp 37.6 C H 11/29/21 11:47 Pulse 60 11/29/21 11:46 Resp 18 11/29/21 11:46 BP 139/61 11/29/21 11:46 Pulse Ox 94 11/29/21 11:46 Laboratory Results - last 24 hr 11/27/21 11/27/21 11/29/21 03:25 06:51 06:15 WBC RBC Hgb Hct MCV MCH MCHC RDW Plt Count MPV Immature Gran % Neutrophils % Lymphocytes % Monocytes % Eosinophils % Basophils % Nucleated RBC % Absolute Neutrophils Absolute Lymphocytes Absolute Monocytes Absolute Eosinophils Absolute Basophils Sodium 140 Potassium 3.5 Chloride 104 Carbon Dioxide 28.0 Anion Gap 8.0 BUN 15 Creatinine 0.9 Est GFR (CKD-EPI 2020) 83.70 Glucose 94 Calcium 7.9 L Magnesium 1.9 HIV 1&2 Ag/Ab, 4th Gen Negative Ur Strep pneumoniae Ag Negative 11/29/21 06:15 WBC 7.97 RBC 3.74 L Hgb 11.8 L Hct 35.2 L MCV 94 MCH 31.6 MCHC 33.5 RDW 12.8 Plt Count 135 MPV 9.7 Immature Gran % 0.4 Neutrophils % 70.1 Lymphocytes % 13.3 Monocytes % 15.1 Eosinophils % 1.0 Basophils % 0.1 Nucleated RBC % 0.0 Absolute Neutrophils 5.59 Absolute Lymphocytes 1.06 L Absolute Monocytes 1.20 H Absolute Eosinophils 0.08 Absolute Basophils 0.01 Sodium Potassium Chloride Carbon Dioxide Anion Gap BUN Creatinine Est GFR (CKD-EPI 2020) Glucose Calcium Magnesium HIV 1&2 Ag/Ab, 4th Gen Ur Strep pneumoniae Ag
[2021-11-29] MEDS: Donepezil 5 MG TAB 10 MG PO (21:52)
[2021-11-29] MEDS: Normal Saline Flush 10 ML SYR IVP (21:53)
[2021-11-29] MEDS: Atorvastatin 40 MG TAB PO (21:53)
[2021-11-29] MEDS: Benzonatate 100 MG CAP PO (22:23)
[2021-11-30 02:36] VITALS: BP 125/50; PULSE 60; RESP 19; TEMP 37.2; O2SAT 94
[2021-11-30 06:20] VITALS: BP 134/69; PULSE 68; RESP 19; TEMP 37.4; O2SAT 92
[2021-11-30 07:00] VITALS: PULSE 62
[2021-11-30 07:41] VITALS: BP 145/65; PULSE 68; RESP 18; TEMP 36.8; O2SAT 95
[2021-11-30 09:00] VITALS: BP 122/58; PULSE 69; RESP 18; TEMP 37.3; O2SAT 93
[2021-11-30] MEDS: Enoxaparin 60 MG/0.6 ML SYR SC (09:01)
[2021-11-30] MEDS: Acetaminophen 325 MG TAB PO (09:02)
[2021-11-30] MEDS: Tamsulosin 0.4 MG CAPCR PO (09:02)
[2021-11-30] MEDS: lamoTRIgine 100 MG TAB PO (09:02)
[2021-11-30] MEDS: Metoprolol CR 25 MG TABCR PO (09:02)
[2021-11-30] MEDS: Multivitamin TAB 1 TAB PO (09:02)
[2021-11-30] MEDS: Divalproex Sodium 500 MG TAB.ER.24H PO (09:02)
[2021-11-30] MEDS: Clopidogrel 75 MG TAB PO (09:02)
[2021-11-30] MEDS: Losartan 25 MG TAB PO (09:02)
[2021-11-30] MEDS: Normal Saline Flush 10 ML SYR IVP ×2 (09:02→11:30)
[2021-11-30] MEDS: Citalopram 10 MG TAB PO (09:02)
[2021-11-30] MEDS: Pantoprazole 40 MG TABCR PO (09:02)
[2021-11-30] MEDS: Mometasone 220 MCG 14 DOSE INHALER 1 PUFF IH (09:08)
[2021-11-30] MEDS: Ipratropium/Albuterol 4 GM 120 PUFF INH IH ×2 (09:08→12:25)
[2021-11-30 10:13] LABS: Hepatitis A Antibody IgM Negative (Negative); Hepatitis B Core Antibody Negative (Negative); Hepatitis B surface Ag Negative (Negative); Hepatitis C Ab w Rflx HCV PCR Negative (Negative)
--- NOTE | 2021-11-30 11:17 | W.PM.DS.N ---
Date of service: 11/30/21 Time of Service: 11:17 DS: Diagnosis Discharge Diagnosis (1) COVID-19: Status: Acute (2) Generalized weakness: Status: Acute (3) Fever: Status: Resolved Discharge Plan Disposition Patient Disposition: HOME W/HOME HEALTH SERVICE Condition: Fair Discharge Details Reason For Visit: COVID 19 Admit Date/Time: 11/26/21 11:56 Admit Provider: Quincy Lucia Attending Provider: Quincy Lucia Primary Care Provider: Jordon Padron Hospital Course Hospital Course: This is an 86-year-old male with a past medical history of dementia, hypertension, hyperlipidemia, [place] with 2 coronary stents, and UTI presented to the [facility] emergency department from home for increasing weakness, headache, sore throat and feeling feverish for the past few days.? stated that the patient first complained of headache a few days ago.? 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 She stated he has a cough that is occasionally productive of yellow sputum and he has had runny nose.? reports he has not been eating or drinking much for the past few days.?Today, she stated, he was unable to ambulate due to weakness and he is normally able to ambulate to the bathroom but had an accident in his depends this morning.? Denies any vomiting but has had loose stools.? He has not had any antipyretics. Oral temp on arrival to the ED was 100.3.?He had wheezing noted throughout which cleared with coughing.?Labs and imaging reviewed.? COVID positive.? Magnesium 1.7.? Troponin negative.? Procalcitonin 0.3.? Urinalysis notes 5-10 WBCs few bacteria, negative leukocyte esterase and negative nitrite.? Chest x-ray no obvious acute disease. He was admitted to the medical floor for IV Remdesivir, IV fluids and continued monitoring. He was given 5 days of Remdesivir.? He had no oxygen requirement throughout his stay.? His also has Covid but is not hospitalized.? He is anxious to go home to care for her, he does not want her to be there alone, understandably.? He states he is feeling much better, and has no fever, vital signs are stable. He is eating and drinking. Labs are unremarkable. ?He was discharged to home, stable, with Home Health Nursing and OT. Discussed with Dr Lucia Home Meds and New Rx's Prescriptions: New Combivent Respimat 20-100 mcg/actuation Mist 1 puff inhalation QID Qty: 4 0RF benzonatate 100 mg Capsule 100 mg PO TID PRN PRN (Reason: Cough) Qty: 20 0RF Continued citalopram 10 mg tablet 10 mg PO DAILY therapeutic multivitamin Tablet 1 tab PO DAILY fluticasone furoate 50 mcg/actuation Blister With Device 100 mcg INHALATION DAILY lamotrigine 25 mg tablet, chewable dispersible 100 mg PO BID Rx Instructions: chew and swallow 4 tablets ( =100mg) twice daily donepezil 10 mg tablet 10 mg PO HS divalproex 500 mg tablet extended release 24 hr 500 mg PO BID metoprolol succinate 25 mg tablet extended release 24 hr 25 mg PO DAILY melatonin 10 mg Tablet,Disintegrating 15 mg PO HS PRN Rx Instructions: take one and one half tablets = 15mg at bedtime omega-3 fatty acids Capsule 1,000 mg PO DAILY tamsulosin 0.4 mg Capsule 0.4 mg PO DAILY clopidogrel [Plavix] 75 MG tablet 75 mg PO DAILY pantoprazole 40 MG tablet,delayed release (DR/EC) 40 mg PO DAILY nitroglycerin [Nitrostat] 0.4 MG tablet, sublingual 0.4 mg Sublingual DIRECTED PRN albuterol sulfate [Proventil HFA] 6.7 GM HFA aerosol inhaler 200 puff Inhalation Q4H PRN PRN aspirin 81 mg Tablet,Delayed Release (Dr/Ec) 81 mg PO DAILY losartan 25 mg Tablet 25 mg PO DAILY latanoprost [Xalatan] 0.005 % Drops 0.005 drp ophthalmic (eye) DAILY docosahexaenoic acid-epa 120-180 mg Capsule 120 cap PO DAILY atorvastatin [Lipitor] 40 mg Tablet 40 mg PO DAILY No Action acetaminophen [Mapap Extra Strength] 500 MG tablet 1,000 mg PO BID Discharge Instructions Instructions: Benzonatate (By mouth), COVID-19 (Coronavirus Disease 2019) (DC) Additional Instructions: Continue to isolate until 12/02; wear a mask for 5 days after that, continue to wear a mask as along as you have symptoms. Take benzonate up to three times a day for cough. Home Health will call you to arrange an appointment at your home with nursing. Stand Alone Forms: Nursing Discharge Form Referrals: Jordon Padron [Primary Care Provider] - 12/07/21 11:00 am () Activity:: Activity as Tolerated Equipment/Supplies:: No Equipment Needed Diet:: As Tolerated Discharge Orders Discharge Orders: Discharge Order (Routine); Ordered 11/30/21 Ordered By: Miladis Yen Discharge Data Discharge Date/Time-TO BE ENTERED AT DEPARTURE: 11/30/21 13:01 DS: Summary Time Spent with Patient providing and/or coordinating discharge services: Less than 30 minutes Status at Discharge Functional status at discharge: independent ambulation Overall status at discharge: patient is back to baseline Mental Status: mental status grossly normal Speech and Movement: speech and movement normal Mood: congruent mood Affect: normal affect Exam Psych Mental Status: mental status grossly normal Speech and Movement: speech and movement normal Mood: congruent mood Affect: normal affect DS: Data Vitals/I&O Vitals and I&O: Vital Signs Temperature 37.3 C 11/30/21 09:00 Temperature Source Tympanic 11/30/21 09:00 Pulse 69 11/30/21 09:00 Pulse Rhythm Regular 11/30/21 09:00 Pulse 58 L 11/26/21 17:01 Respiratory Rate 18 11/30/21 09:00 Respiratory Effort Non-Labored 11/30/21 09:00 Respiratory Depth Normal 11/30/21 09:00 Respiratory Pattern Normal 11/30/21 09:00 Blood Pressure 122/58 L 11/30/21 09:00 Blood Pressure Mean 61 11/26/21 17:01 Blood Pressure Position Supine 11/26/21 09:31 Pulse Oximetry 93 11/30/21 09:00 Oxygen Delivery Method Room Air 11/30/21 09:00 Oxygen Flow Rate 0 11/30/21 09:00 Pain Level 0 11/30/21 09:00 Intake & Output 11/29/21 11/29/21 11/30/21 11:59 23:59 11:59 Intake Total 2296.667 / 2976.667 680 / 2976.667 140 / 140 Output Total 2 / 2 Balance 2294.667 / 2974.667 680 / 2974.667 140 / 140 Weight 67.2 kg Intake: IV 1696.667 / 1956.667 260 / 1956.667 Oral 600 / 1020 420 / 1020 120 / 120 Output: Urine 2 / 2 Other: Urine Color Yellow Yellow Yellow Urine Appearance Clear Clear Clear Urine Odor Normal None None Comment patient was incontinent voided in toilet per patient Good void into toilet Voiding Methods Toilet Toilet Data Completed and Pending Labs on day of discharge: Labs from last 24 hours 11/27/21 11/27/21 06:51 03:25 HIV 1&2 Ag/Ab, 4th Gen Negative Ur Strep pneumoniae Ag Negative Preliminary micro results at discharge 11/29/21 02:45 Blood Culture - Preliminary Blood NO GROWTH 24 HOURS 11/29/21 02:35 Blood Culture - Preliminary Blood NO GROWTH 24 HOURS 11/26/21 11:05 Blood Culture - Preliminary Blood NO GROWTH 72 HOURS 11/26/21 09:50 Blood Culture - Preliminary Blood NO GROWTH 72 HOURS PFSH All Active Problems (Updated 12/01/21 @ 00:08 by SWETA GARCIA) COVID-19 (Acute) Generalized weakness (Acute) Rib fractures (Acute) Seizure (Acute) Medical History Dementia HTN (hypertension) Hx of hyperlipidemia Kidney stones Lung cancer Myocardial infarction UTI (urinary tract infection) Surgical History History of coronary artery stent placement History of tonsillectomy Social History Smoking/Tobacco Use Status: Never Smoking risk assessment performed?: Yes Alcohol Intake: never Substance use type: does not use Do you feel safe at home: Yes Do you feel safe in your relationship?: Yes
[2021-11-30] MEDS: REMDESIVIR 100 MG in Normal Saline 250 ML 250 MG IVPB (11:31)
[2021-11-30 11:35] VITALS: BP 128/67; PULSE 59; RESP 16; TEMP 36.5; O2SAT 94
--- NOTE | 2021-11-30 12:36 | CMDISCH_ITS ---
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 Visits: 2 - Answers: Total Score: 14 Risk of Readmission: High Risk Care Management Discharge Reason for Hospitalization: COVID-19,Generalized weakness Discharge Plan: Dimitrios is discharged home via EMS. RX's are transmitted to [facility] and the remainder of his Combivent Inh. will be sent with pt. Dimitrios will follow up with his PCP on 12/07/21, as scheduled and continue isolation precautions until 12/02/21, after that wear a mask until symptoms are resolved. There is no anticipated need for services, at the time of Dimitrios's discharge. Patient/Family Education Needs: Review discharge instructions, limitations, medications and plan to follow up with community providers. Review ask me three. Services Needed at Discharge: Transportation (EMS/[facility] (COVID +). Arranged by CM. )
--- NOTE | 2021-11-30 17:42 | PDOC.HHF2F ---
Home Health Certification Home Health Certification: 1. Encounter Date and Reason I certify that Dimitrios Mortensen was seen by Miladis Yen NP on 11/30/21 and that I had a [id number] encounter with this patient that meets the physician face to face encounter requirements. 2. Clinical Findings Supporting Skilled Need and Homebound Status I certify that home health services are medically necessary, include either intermittent nursing home and/or physical/speech therapy, and that this patient is homebound in that absences from the home require considerable and taxing effort and are infrequent or of short duration, or are attributable to the need to receive medical care. [X] (a) Attached documentation from encounter provides clinical findings supporting skilled need and homebound status (including what assistance patient requires to leave the home). The encounter with the patient was in whole, or in part, for the following medical condition, which is the primary reason for home health care: COVID 19 Fci: Skilled observation, assessment and intervention of the patient?s condition including symptom control, vital signs, diet, disease process; education regarding medication and nutrition during recover to avoid further complications of Covid 19. Occupational Therapy: Assess his ability to perform ADL?s, teach safety. Homebound: :??Patient is unable to safely ambulate further than 20 feet without a device, requiring frequent rest period; he should not ambulate outside without assistance of at least one other person and only on flat ground until he regains strength. 3. Certification and Authentication I certify that I composed the above information based on my clinical judgement relating to this patient's medical condition and, if applicable, clinical findings communicated to me by the NPP or inpatient physician who performed the Home Health Referral. All further orders will be obtained through [facility]
--- NOTE | 2021-12-04 11:14 | PT.INIE ---
Date of service: 11/28/21 PT Notes Visit Reasons: COVID 19 Inpatient Physical Therapy Evaluation Date: 11/28/2021 Referring Doctor: Miladis Yen PT Orders: PT CONSULT: Extended Stay?weakness Precautions: Fall risk Patient Profile/Admitting Diagnosis: 86-year-old male who was admitted yesterday with COVID. 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 Together, they prepare meals, she drives, and is normally independent with all ADLs. Current Functional Limitations: Has a ramp entering his home. Two-story home, but he and his 's bedroom is on the first floor while in the bathroom with a combo tub shower. No grab bars or flexible shower hose or shower chair. He states he is normally independent with getting in and out of the tub although sometimes can be challenging. He is planning on putting in a walk-in shower. Equipment Owned/DME: Has a Rollator type walker at home which he rarely uses Subjective: Patient states that his headache has resolved and he feels that he has a chest cold . He is anxious to return home. Objective: [] General Observation: Enters room the patient is resting comfortably in chair. He appears comfortable and is conversive. Mental Status: Alert and oriented x3 Pain: No complaints of pain offered ROM: Is active and active assisted range of motion shows good functional range of motion which is nonirritable, other than some hypomobility with his talocrural and subtalar joints Strength: Strength is generally rated -5/5 throughout Neuro: LAWANDA's age is +1 and symmetrical, sensations intact to light touch, and has full motor control. Bed Mobility/Transfers: Independent with assuming the supine to sitting is standing positions. Gait: Ambulates independently with standby supervision for 30 feet with a stable gait. He has an anterior flexed posture. Balance: Static Sitting: Independent Dynamic Sitting: Stable Static Standing: Stable slightly wide-based gait Dynamic Standing: Stable. His unilateral standing balance is less than 3 seconds, he is able to place his right foot in front of left without loss of balance, negative Romberg sign Special Tests: Mobility Limitations [facility] Mob[facility] In[facility] Short Form: Raw Score: 24 standardized Score: 6.94 CMS Score: 0% Informed Consent/Education: Patient instructed in purpose of PT consult and plan of care. Assessment: Patient is a 86 year old male referred to physical therapy services with the diagnosis of COVID. Patient presents with clinical signs and symptoms consistent with diagnosis, as demonstrated by the following impairment level findings: None. Patient is assessed as a Low 02227 complexity based on the following: History: See comorbidities and social history Examination: See above for functional limitations and impairments Presentation: Stable Decision Making: Low complexity based on his clinical findings Goals: Return home Plan of Care/Treatment Plan Today session consisted of evaluation, and patient demonstrated independence with bed mobility activities and Gait. He does not require further physical therapy. DISCHARGE RECOMMENDATIONS: Home with no services TREATMENT CODE/TIME: 16253/60 minutes
[2022-04-29 11:37] LABS: Lab Add On Test DONE
== END 2021-11-30 13:01 | disposition home health service (06) | DRG 179 ==
LOC: ER 15:01 → MS 17:25
PROVIDERS: Nurse Practitioner Family; Admitting Provider Internal Medicine; Emergency Provider Physician Assistant; PCP Family Medicine; Visit Provider Internal Medicine
DX: U07.1 COVID-19 (principal); I10 Essential (primary) hypertension; F03.90 Unspecified dementia, unspecified severity, without behavioral disturbance, psychotic disturbance, mood disturbance, and anxiety; E78.5 Hyperlipidemia, unspecified; I25.2 Old myocardial infarction; Z95.5 Presence of coronary angioplasty implant and graft; R53.1 Weakness; R51.9 Headache, unspecified; Z85.118 Personal history of other malignant neoplasm of bronchus and lung; Z66 Do not resuscitate
CPT/HCPCS: 36415; 51701; 80048; 80053; 80076; 82550; 84145; 85384; 86704; 86709; 86803; 87040; 87340; 87389; 87449; 87637; 94640; 96361; 96365; 96367; 96375; 97162; 99285; 71045; 81003; 81015; 82728; 83605; 83735; 84484; 85025; 85379; 85610; 85730; 86140; 87086; 87899; 99222; 99232; 99233; 99238; J0131; J0248; J1650; J2930; J3490; J7620

== ENCOUNTER 2022-06-02 13:30 | Inpatient (IN) | payer MEDICARE, SELFPAY ==
[2022-06-02] VITALS (177 sets, daily range): BP systolic 111–176; BP diastolic 40–133; PULSE 44–92; RESP 6–30; TEMP 36.9–38.8; O2SAT 90–100
--- NOTE | 2022-06-02 14:00 | DI.RAD_ITS ---
Exam(s) XR CHEST 2V PA LATERAL EXAM: XR CHEST 2V PA LATERAL CLINICAL HISTORY: fe shama TECHNIQUE: 2D digital imaging was performed of the chest. Two images were obtained. PA and lateral views were obtained. COMPARISON: CR XR CHEST 2V PA LATERAL from 02/20/2021 FINDINGS: MEDIASTINUM: Normal. HEART: Normal. PULMONARY VASCULATURE: Normal. LUNGS: Chronic pulmonary fibrosis is seen. No focal consolidating infiltrates. PLEURAL SPACE: No pleural effusion or pneumothorax. BONE:Within normal limits for the patient's age. There is an old mid thoracic vertebral body eloise wilner fracture deformity. OTHER FINDINGS:Normal. IMPRESSION: No acute pulmonary findings. DATA REPOSITORY: RADIATION DOSE DELIVERED:
--- NOTE | 2022-06-02 14:00 | DI.CT_ITS ---
Exam(s) CT ABDOMEN PELVIS W EXAM: CT ABDOMEN PELVIS W CLINICAL HISTORY: fever, abd pain TECHNIQUE: Imaging Protocol: Axial computed tomography images with coronal and sagittal reformatted images were created and reviewed CONTRAST MATERIAL: Intravenous: Omnipaque 350 Contrast volume:100 mL Oral: No COMPARISON: CT CT THORAX ABD/PEL CTA from 02/20/2021 FINDINGS: The examination is limited due to patient motion artifact. ABDOMEN: Lung Bases: There is a small hiatal hernia. There is mild pleural thickening and or very tiny pleura l effusions. Dependent atelectasis or scarring. Liver: Normal density. There is again seen a hepatic hemangioma in the liver. No suspicious hepatic masses are seen. Portal, Superior Mesenteric, and Splenic Veins: Unremarkable. Gallbladder and Biliary Tract: No radiodense calculus or dilation. Pancreas: Normal density, no abnormal calcifications or inflammatory process. Spleen: Normal. Adrenals: No masses seen. Kidneys: Normal size, contour and axis. Nonobstructing right renal stone. There are few tiny hypoden sities in the kidneys. They are too small for further characterization but likely reflect small cyst s. There is a 3 mm stone in the distal right ureter just proximal to the UVJ. No significant hydron ephrosis is seen. Abdominal Aorta: Abdominal portion non-dilated. Atherosclerosis. Bowel: No evidence of bowel obstruction. Nonspecific thickening of the wall of the rectosigmoid colo n is noted. No pericolonic inflammatory changes are seen. The bowel is otherwise unremarkable. Hedy endix is unremarkable. Peritoneal Cavity: No ascites, collection or mesenteric inflammatory response. No free air. Lymph Nodes: Within normal limits. Bones: Within normal limits for the patient's age. Soft Tissues: Unremarkable. PELVIS: Bladder: Symmetric distention, no gross wall thickening. Reproductive Organs: Enlarged prostate gland. Lymph Nodes: Within normal limits. Bones: Within normal limits for the patient's age. IMPRESSION: 1. 3 mm stone in the distal right ureter just proximal to the UVJ without hydronephrosis. 2. Nonspecific bowel wall thickening of the rectosigmoid colon. Infectious or inflammatory process s hould be considered. No evidence of obstruction. 3. Stable hepatic hemangioma. 4. Findings were discussed with the emergency department on the date of the examination at 4:31 p.m. RADIATION DOSE DELIVERED: 827.41mGy.cm Total DLP DATA REPOSITORY: All CT scans at this facility are submitted to the National Radiology Data Registry (NRDR) Dose Index Registry (DIR) with the [employer] ([employer]). RADIATION OPTIMIZATION: All CT scans at this facility use at least one of these dose optimization te chniques: automated exposure control; mA and/or kV adjustment per patient size (includes targeted exa ms where dose is matched to clinical indication); or iterative reconstruction.
--- NOTE | 2022-06-02 14:07 | DI.CT_ITS ---
Exam(s) CT HEAD WO EXAM: CT HEAD WO CLINICAL HISTORY: seizure, ams. TECHNIQUE: Imaging Protocol: Axial computed tomography images with coronal and sagittal reformatted images were created and reviewed COMPARISON: CT CT HEAD WO from 02/20/2021 FINDINGS: Ventricles and Extra axial spaces: Normal in size and morphology for the patient's age. Hemorrhage: None. Cerebral parenchyma: There is no evidence of an acute territorial infarct. There are areas of decrea sed attenuation in the white matter consistent with small vessel ischemic disease. Midline shift: None. Brainstem/Cerebellum: Normal. Calvarium: Normal. Visualized Paranasal sinuses/Mastoids: Clear. Soft Tissues: Unremarkable. IMPRESSION: 1. No acute intracranial process. 2. Findings were discussed with the emergency department at 4:30 p.m. on 06/02/2022. RADIATION DOSE DELIVERED: 820.2mGy.cm Total DLP DATA REPOSITORY: All CT scans at this facility are submitted to the National Radiology Data Registry (NRDR) Dose Index Registry (DIR) with the [employer] ([employer]). RADIATION OPTIMIZATION: All CT scans at this facility use at least one of these dose optimization te chniques: automated exposure control; mA and/or kV adjustment per patient size (includes targeted exa ms where dose is matched to clinical indication); or iterative reconstruction.
--- NOTE | 2022-06-02 14:30 | RT.EKG_ITS ---
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
[2022-06-02 14:35] LABS: WBC 6.64 10^3/uL (4.4-10.8)
[2022-06-02 14:36] LABS: Absolute Eosinophil Count 0.12 10^3/uL (0.0-0.7); Absolute Lymphocyte Count 0.94 10^3/uL (1.2-3.4); Absolute Monocyte Count 0.94 10^3/uL (0.1-0.8); Absolute Neutrophil Count 4.52 10^3/uL (1.2-6.7); Eosinophils % 1.8; HCT 41.1 % (40.0-50.0); HGB 13.8 g/dL (13.5-17.5); Lymphocytes % 14.2; MCH 30.8 pg (27.0-33.0); MCHC 33.6 % (32.0-36.0); MCV 92 fL (80-95); MPV 10.1 fL (8.0-11.0); Monocytes % 14.2; Platelet Count 169 10^3/uL (130-400); RBC 4.48 10^6/uL (4.36-5.78); RDW 14.4 % (11.8-14.1); RDW-SD 48.7 fL
[2022-06-02 14:37] LABS: Absolute Basophil Count 0.02 10^3/uL (0.0-0.2); Basophils % 0.3; Immature Grans % 1.5
[2022-06-02 14:42] LABS: Bilirubin Negative (Negative); Blood Negative (Negative); Clarity Clear (Clear); Glucose Negative (Negative); Ketones Trace mg/dL (Negative); Leukocyte Esterase Negative (Negative); Nitrite Negative (Negative); Specific Gravity 1.025 (1.005-1.025); Urobilinogen 0.2 mg/dL (Up to 0.2)
[2022-06-02 14:43] LABS: Bacteria Negative HPF (Negative); C & S Indicated? No; Casts Negative LPF (Negative); Crystals Negative HPF (Negative); Epithelial Cells Negative HPF (Negative); Mucus Negative (Negative); RBC 0-2 HPF (0-2); WBC 0-2 HPF (0-5)
[2022-06-02] MEDS: Divalproex 500 MG TABEC PO (14:50)
[2022-06-02] MEDS: lamoTRIgine 100 MG TAB PO (14:50)
[2022-06-02 14:51] LABS: Lactate 1.8 mmol/L (0.6-1.4)
--- NOTE | 2022-06-02 15:18 | ED.GENADUL_ITS ---
Discharge Plan Disposition Patient Disposition: Admit to [facility] Condition: Stable Discharge Details Clinical Impression: Seizure Admit Date/Time: 06/02/22 21:58 Admit Provider: Radha Herron Attending Provider: Radha Herron Primary Care Provider: Jordon Padron ED Provider: Bonnie Gordon Medical Decision Making <NAM Holt - Last Filed: 06/03/22 14:31> 86-year-old male with seizure history of presents with report of 2 seizures today. Upon arrival, it was noted he had a temp of 101.8, he is tired but alert and oriented on my initial assessment He has not had a seizure in the emergency department Last seizure per his was at 5 AM this morning. He did take his seizure meds this morning He was given his seizure meds, lamotrigine and divalproex in the emergency department CT head will be ordered in addition to your chest x-ray and CT abdomen and pelvis as he is tender in his abdomen He was given Tylenol, fluids, divalproex, lamotrigine Given the fever, I did order blood work, <Bonnie Gordon NP - Last Filed: 06/02/22 23:12> 86-year-old male with seizure history of presents with report of 2 seizures today. Upon arrival, it was noted he had a temp of 101.8, he is tired but alert and oriented on my initial assessment He has not had a seizure in the emergency department Last seizure per his was at 5 AM this morning. He did take his seizure meds this morning He was given his seizure meds, lamotrigine and divalproex in the emergency department CT head will be ordered in addition to your chest x-ray and CT abdomen and pelvis as he is tender in his abdomen He was given Tylenol, fluids, divalproex, lamotrigine Given the fever, I did order blood work, 1559: SJ: Care assumed from provider (NAM Holt) Please see their initial HPI, PE, and documentation. Discussed patient details and case and pending workup and disposition. Patient is hemodynamically stable, and at baseline. At the time of signout pending CT results, and possible admission. In short patient is a 86-year-old male with history of 2, tonic-clonic seizures with recent med changes. 1713: Spoke with regarding labs and CT results she verbalized fantasma durham. I will page hospitalist for request for admission for observation. Hospitalist paged. Computer Downtime, remainder of chart of paper, please see paper chart. Patient is to be admitted here Dr. Herron with hospitalist was in the department to evaluate patient. At this dictation patient is hemodynamically stable awaiting bed placement. This text was generated using [employer] system, please disregard any oddities of phrase or misspellings. Medical Records Medical records reviewed: Yes I reviewed the patient's medical records. Imaging Data Radiologic Study: Imaging: CT Scan Radiologist's impression: Exam(s) CT ABDOMEN PELVIS W EXAM: CT ABDOMEN PELVIS W CLINICAL HISTORY: fever, abd pain TECHNIQUE: Imaging Protocol: Axial computed tomography images with coronal and sagittal reformatted images were created and reviewed CONTRAST MATERIAL: Intravenous: Omnipaque 350 Contrast volume:100 mL Oral: No COMPARISON: CT CT THORAX ABD/PEL CTA from 02/20/2021 FINDINGS: The examination is limited due to patient motion artifact. ABDOMEN: Lung Bases: There is a small hiatal hernia. There is mild pleural thickening and or very tiny pleural effusions. Dependent atelectasis or scarring. Liver: Normal density. There is again seen a hepatic hemangioma in the liver. No suspicious hepatic masses are seen. Portal, Superior Mesenteric, and Splenic Veins: Unremarkable. Gallbladder and Biliary Tract: No radiodense calculus or dilation. Pancreas: Normal density, no abnormal calcifications or inflammatory process. Spleen: Normal. Adrenals: No masses seen. Kidneys: Normal size, contour and axis. Nonobstructing right renal stone. There are few tiny hypodensities in the kidneys. They are too small for further characterization but likely reflect small cysts. There is a 3 mm stone in the distal right ureter just proximal to the UVJ. No significant hydronephrosis is seen. Abdominal Aorta: Abdominal portion non-dilated. Atherosclerosis. Bowel: No evidence of bowel obstruction. Nonspecific thickening of the wall of the rectosigmoid colon is noted. No pericolonic inflammatory changes are seen. The bowel is otherwise unremarkable. Appendix is unremarkable. Peritoneal Cavity: No ascites, collection or mesenteric inflammatory response. No free air. Lymph Nodes: Within normal limits. Bones: Within normal limits for the patient's age. Soft Tissues: Unremarkable. PELVIS: Bladder: Symmetric distention, no gross wall thickening. Reproductive Organs: Enlarged prostate gland. Lymph Nodes: Within normal limits. Bones: Within normal limits for the patient's age. IMPRESSION: 1. 3 mm stone in the distal right ureter just proximal to the UVJ without hydronephrosis. 2. Nonspecific bowel wall thickening of the rectosigmoid colon. Infectious or inflammatory process should be considered. No evidence of obstruction. 3. Stable hepatic hemangioma. 4. Findings were discussed with the emergency department on the date of the examination at 4:31 p.m. Lab Data Lab results reviewed: Yes I reviewed the patient's lab results. Labs: 06/02/22 15:18 Blood Blood Culture - Pending 06/02/22 14:05 Blood Blood Culture - Pending Laboratory Tests Range/Units 06/02/22 06/02/22 06/02/22 13:49 13:49 13:50 WBC (4.4-10.8) 10^3/uL RBC (4.36-5.78) 10^6/uL Hgb (13.5-17.5) g/dL Hct (40.0-50.0) % MCV (80-95) fL MCH (27.0-33.0) pg MCHC (32.0-36.0) % RDW (11.8-14.1) % Plt Count (130-400) 10^3/uL MPV (8.0-11.0) fL Immature Gran % Neutrophils % Lymphocytes % Monocytes % Eosinophils % Basophils % Nucleated RBC % (0.0-0.3) % Absolute Neutrophils (1.2-6.7) 10^3/uL Absolute Lymphocytes (1.2-3.4) 10^3/uL Absolute Monocytes (0.1-0.8) 10^3/uL Absolute Eosinophils (0.0-0.7) 10^3/uL Absolute Basophils (0.0-0.2) 10^3/uL VBG Lactate (0.6-1.4) mmol/L Sodium (136-145) mmol/L 140 Potassium (3.5-5.1) mmol/L 4.5 Chloride (98-107) mmol/L 103 Carbon Dioxide (21.0-32.0) mmol/L 31.0 Anion Gap (3-11) mmol/L 6.0 BUN (7-18) mg/dL 17 Creatinine (0.70-1.30) mg/dL 1.0 Est GFR (CKD-EPI 2020) (mL/min/1.73m2) 73.76 Glucose (74-106) mg/dL 89 Calcium (8.5-10.1) mg/dL 8.5 Magnesium (1.8-2.4) mg/dL 1.9 Total Bilirubin (0.2-1.0) mg/dL 0.5 AST (15-37) U/L 30 ALT (16-63) U/L 34 Alkaline Phosphatase (46-116) U/L 81 Total Protein (6.4-8.2) g/dL 6.4 Albumin (3.4-5.0) g/dL 3.5 TSH (0.36-3.74) uIU/mL 1.74 Urine Color (Yellow) Yellow Urine Clarity (Clear) Clear Urine pH (5-8) 7.0 Ur Specific Centre (1.005-1.025) 1.025 Urine Protein (Negative) mg/dL 100 H Urine Ketones (Negative) mg/dL Trace H Urine Blood (Negative) Negative Urine Nitrite (Negative) Negative Urine Bilirubin (Negative) Negative Urine Urobilinogen (Up to 0.2) mg/dL 0.2 Ur Leukocyte Esterase (Negative) Negative Urine RBC (0-2) HPF 0-2 Urine WBC (0-5) HPF 0-2 Ur Epithelial Cells (Negative) HPF Negative Urine Crystals (Negative) HPF Negative Urine Bacteria (Negative) HPF Negative Urine Casts (Negative) LPF Negative Urine Mucus (Negative) Negative Ur Culture Indicated? No Urine Glucose (Negative) mg/dL Negative COVID-19 Source Nasopharynx SARS-CoV-2 (PCR) (Negative) Negative Influenza Type A (PCR) (Negative) Negative Influenza Type B (PCR) (Negative) Negative RSV (PCR) (Negative) Negative Range/Units 06/02/22 06/02/22 13:50 14:30 WBC (4.4-10.8) 10^3/uL 6.64 RBC (4.36-5.78) 10^6/uL 4.48 Hgb (13.5-17.5) g/dL 13.8 Hct (40.0-50.0) % 41.1 MCV (80-95) fL 92 MCH (27.0-33.0) pg 30.8 MCHC (32.0-36.0) % 33.6 RDW (11.8-14.1) % 14.4 H Plt Count (130-400) 10^3/uL 169 MPV (8.0-11.0) fL 10.1 Immature Gran % 1.5 Neutrophils % 68.0 Lymphocytes % 14.2 Monocytes % 14.2 Eosinophils % 1.8 Basophils % 0.3 Nucleated RBC % (0.0-0.3) % 0.0 Absolute Neutrophils (1.2-6.7) 10^3/uL 4.52 Absolute Lymphocytes (1.2-3.4) 10^3/uL 0.94 L Absolute Monocytes (0.1-0.8) 10^3/uL 0.94 H Absolute Eosinophils (0.0-0.7) 10^3/uL 0.12 Absolute Basophils (0.0-0.2) 10^3/uL 0.02 VBG Lactate (0.6-1.4) mmol/L 1.8 H Sodium (136-145) mmol/L Potassium (3.5-5.1) mmol/L Chloride (98-107) mmol/L Carbon Dioxide (21.0-32.0) mmol/L Anion Gap (3-11) mmol/L BUN (7-18) mg/dL Creatinine (0.70-1.30) mg/dL Est GFR (CKD-EPI 2020) (mL/min/1.73m2) Glucose (74-106) mg/dL Calcium (8.5-10.1) mg/dL Magnesium (1.8-2.4) mg/dL Total Bilirubin (0.2-1.0) mg/dL AST (15-37) U/L ALT (16-63) U/L Alkaline Phosphatase (46-116) U/L Total Protein (6.4-8.2) g/dL Albumin (3.4-5.0) g/dL TSH (0.36-3.74) uIU/mL Urine Color (Yellow) Urine Clarity (Clear) Urine pH (5-8) Ur Specific Centre (1.005-1.025) Urine Protein (Negative) mg/dL Urine Ketones (Negative) mg/dL Urine Blood (Negative) Urine Nitrite (Negative) Urine Bilirubin (Negative) Urine Urobilinogen (Up to 0.2) mg/dL Ur Leukocyte Esterase (Negative) Urine RBC (0-2) HPF Urine WBC (0-5) HPF Ur Epithelial Cells (Negative) HPF Urine Crystals (Negative) HPF Urine Bacteria (Negative) HPF Urine Casts (Negative) LPF Urine Mucus (Negative) Ur Culture Indicated? Urine Glucose (Negative) mg/dL COVID-19 Source SARS-CoV-2 (PCR) (Negative) Influenza Type A (PCR) (Negative) Influenza Type B (PCR) (Negative) RSV (PCR) (Negative) HPI <NAM Holt - Last Filed: 06/03/22 14:31> General Date/Time Provider Initiated Documentation: 06/02/22 13:30 . HPI Narrative: This 86-year-old male presents with report of recurrent seizure since this morning. States that he is only had partial seizures and so his lamotrigine was discontinued a month ago. He had 2 seizures this morning, 1 at 1 AM and an additional 1 at 5 which were tonic-clonic. Patient initially refused EMS transport and finally agreed to his transferring him to the emergency department this afternoon. denies any known trauma associated as he was in bed with the seizures. She denies any alcohol consumption or illicit drug use. Sees a neurologist at [facility] reportedly. States has been really tired for the past month but denies any acute change today. Denies urinary symptoms, cough, shortness of breath, vomiting. Related Data Home Medications Medication Instructions Recorded Confirmed acetaminophen 500 mg tablet (Mapap 1,000 mg PO BID PRN 04/27/16 06/02/22 Extra Strength) albuterol sulfate 90 mcg/actuation 200 puff inhalation Q4H PRN PRN 04/27/16 11/26/21 aerosol inhaler (Proventil HFA) clopidogrel 75 mg tablet (Plavix) 75 mg PO DAILY 04/27/16 06/02/22 nitroglycerin 0.4 mg sublingual 0.4 mg sublingual DIRECTED PRN 04/27/16 11/26/21 tablet (Nitrostat) pantoprazole 40 mg tablet,delayed 40 mg PO DAILY 04/27/16 06/02/22 release aspirin 81 mg tablet,delayed 81 mg PO DAILY 12/18/19 06/02/22 release atorvastatin 40 mg tablet (Lipitor) 40 mg PO DAILY 12/18/19 11/26/21 docosahexaenoic acid (dha)-epa 120 120 cap PO DAILY 12/18/19 11/26/21 mg-180 mg capsule latanoprost 0.005 % eye drops 0.005 drp ophthalmic (eye) DAILY 12/18/19 11/26/21 (Xalatan) losartan 25 mg tablet 25 mg PO DAILY 12/18/19 11/26/21 citalopram 10 mg tablet 20 mg PO DAILY 02/20/21 06/02/22 fluticasone furoate 50 100 mcg inhalation DAILY 02/20/21 11/26/21 mcg/actuation blister powder for inhalation therapeutic multivitamin 1 tab PO DAILY 02/20/21 06/02/22 divalproex 500 mg tablet,extended 500 mg PO BID 11/26/21 06/02/22 release 24 hr donepezil 10 mg tablet 10 mg PO DAILY 11/26/21 06/02/22 melatonin 10 mg disintegrating 15 mg PO HS PRN 11/26/21 06/02/22 tablet metoprolol succinate 25 mg 25 mg PO DAILY 11/26/21 06/02/22 tablet,extended release 24 hr omega-3 fatty acids 1,000 mg PO DAILY 11/26/21 11/26/21 tamsulosin 0.4 mg capsule 0.4 mg PO DAILY 11/26/21 06/02/22 benzonatate 100 mg capsule 100 mg PO TID PRN PRN Cough #20 11/30/21 caps ipratropium 20 mcg-albuterol 100 1 puff inhalation QID #4 grams 11/30/21 mcg/actuation mist for inhalation (Combivent Respimat) lamotrigine 25 mg chewable 50 mg 06/02/22 dispersible tablet memantine 5 mg tablet 5 mg PO QHS 06/02/22 06/02/22 Previous Rx's Medication Instructions Recorded benzonatate 100 mg capsule 100 mg PO TID PRN PRN Cough #20 11/30/21 caps ipratropium 20 mcg-albuterol 100 1 puff inhalation QID #4 grams 11/30/21 mcg/actuation mist for inhalation (Combivent Respimat) Allergies Allergy/AdvReac Type Severity Reaction Status Date / Time oxycodone [From Percocet] AdvReac Unverified 02/20/21 12:53 Penicillins AdvReac Unverified 02/20/21 12:53 General Stated Complaint: Seizure FORD: 3 PFSH <NAM Holt - Last Filed: 06/03/22 14:31> All Active Problems (Updated 06/03/22 @ 01:16 by Radha Herron MD) Neck pain (Acute) Proctitis (Acute) Discharge planning issues (Acute) DVT prophylaxis (Acute) Fever (Acute) Breakthrough seizure (Acute) COVID-19 (Acute) Generalized weakness (Acute) Rib fractures (Acute) Seizure (Acute) Medical History (Updated 06/03/22 @ 01:16 by Radha Herron MD) CAD (coronary artery disease) Dementia H/O non-insulin dependent diabetes mellitus HTN (hypertension) Hx of hyperlipidemia Kidney stones Lung cancer Myocardial infarction Seizure disorder UTI (urinary tract infection) Surgical History History of coronary artery stent placement History of tonsillectomy Family History (Updated 06/02/22 @ 23:08 by Radha Herron MD) Maternal Grandfather Leukemia Social History Smoking/Tobacco Use Status: Never Smoking risk assessment performed?: Yes Alcohol Intake: never Substance use type: does not use Do you feel safe at home: Yes Do you feel safe in your relationship?: Yes Exam <NAM Holt - Last Filed: 06/03/22 14:31> Const General: cooperative, comfortable and no acute distress Eyes Other: Moist mucous membranes, uvula midline Neck Other: No meningismus Course <NAM Holt - Last Filed: 06/03/22 14:31> Vital Signs Vital signs: Vital Signs Pulse 92 H 06/02/22 13:48 Respiratory Rate 17 06/02/22 13:48 Blood Pressure 176/133 H 06/02/22 13:48 Pulse Oximetry 93 06/02/22 13:48 Temperature 38.8 C H 06/02/22 14:22 Temperature Source Temporal Artery Scan 06/02/22 14:22 Pulse 52 L 06/02/22 14:46 Pulse 59 L 06/02/22 14:30 Respiratory Rate 19 06/02/22 14:31 Respiratory Effort Normal 06/02/22 14:45 Respiratory Depth Normal 06/02/22 14:45 Blood Pressure 111/55 L 06/02/22 14:46 Blood Pressure Mean 70 06/02/22 14:46 Pulse Oximetry 93 06/02/22 14:46 Lab/Test Results Lab/Test Results: 06/02/22 14:05 Blood Blood Culture - Pending 06/02/22 14:58 Blood Blood Culture - Pending Laboratory Tests Range/Units 06/02/22 06/02/22 06/02/22 13:49 13:50 14:30 WBC (4.4-10.8) 10^3/uL 6.64 RBC (4.36-5.78) 10^6/uL 4.48 Hgb (13.5-17.5) g/dL 13.8 Hct (40.0-50.0) % 41.1 MCV (80-95) fL 92 MCH (27.0-33.0) pg 30.8 MCHC (32.0-36.0) % 33.6 RDW (11.8-14.1) % 14.4 H Plt Count (130-400) 10^3/uL 169 MPV (8.0-11.0) fL 10.1 Immature Gran % 1.5 Neutrophils % 68.0 Lymphocytes % 14.2 Monocytes % 14.2 Eosinophils % 1.8 Basophils % 0.3 Nucleated RBC % (0.0-0.3) % 0.0 Absolute Neutrophils (1.2-6.7) 10^3/uL 4.52 Absolute Lymphocytes (1.2-3.4) 10^3/uL 0.94 L Absolute Monocytes (0.1-0.8) 10^3/uL 0.94 H Absolute Eosinophils (0.0-0.7) 10^3/uL 0.12 Absolute Basophils (0.0-0.2) 10^3/uL 0.02 VBG Lactate (0.6-1.4) mmol/L 1.8 H Urine Color (Yellow) Yellow Urine Clarity (Clear) Clear Urine pH (5-8) 7.0 Ur Specific Centre (1.005-1.025) 1.025 Urine Protein (Negative) mg/dL 100 H Urine Ketones (Negative) mg/dL Trace H Urine Blood (Negative) Negative Urine Nitrite (Negative) Negative Urine Bilirubin (Negative) Negative Urine Urobilinogen (Up to 0.2) mg/dL 0.2 Ur Leukocyte Esterase (Negative) Negative Urine RBC (0-2) HPF 0-2 Urine WBC (0-5) HPF 0-2 Ur Epithelial Cells (Negative) HPF Negative Urine Crystals (Negative) HPF Negative Urine Bacteria (Negative) HPF Negative Urine Casts (Negative) LPF Negative Urine Mucus (Negative) Negative Ur Culture Indicated? No Urine Glucose (Negative) mg/dL Negative Sign Out <NAM Holt - Last Filed: 06/03/22 14:31> Sign Out Data: Sign Out Comment: signed out pending labs, ct head and abd/pelvis, fluids, observation, and possible admission Last updated by Stacy Lambert PA at 06/02/22 15:56
[2022-06-02 15:29] LABS: COVID-19 PCR Negative (Negative); Influenza A PCR Negative (Negative); Influenza B PCR Negative (Negative); RSV PCR Negative (Negative); Source Nasopharynx
[2022-06-02 15:37] LABS: Calcium 8.5 mg/dL (8.5-10.1)
[2022-06-02 15:38] LABS: ALT 34 U/L (16-63); AST 30 U/L (15-37); Albumin 3.5 g/dL (3.4-5.0); Alkaline Phosphatase 81 U/L (46-116); BUN 17 mg/dL (7-18); Bilirubin, Total 0.5 mg/dL (0.2-1.0); Chloride 103 mmol/L (98-107); Estimated GFR 73.76 (mL/min/1.73m2); Glucose 89 mg/dL (74-106); Magnesium 1.9 mg/dL (1.8-2.4); Potassium 4.5 mmol/L (3.5-5.1); Sodium 140 mmol/L (136-145); TSH (W/Ref FT4) 1.74 uIU/mL (0.36-3.74); Total Protein 6.4 g/dL (6.4-8.2)
[2022-06-02] MEDS: Normal Saline - Diluent 50 ML VIAL IJ (15:59)
[2022-06-02] MEDS: Omnipaque 350 MG/ML 100 ML BTL IJ (16:00)
[2022-06-02] MEDS: ACETAMINOPHEN 1,000 MG/100 ML BTL 400 MG IVPB (16:40)
[2022-06-02 22:52] LABS: Lab Add On Test DONE
--- NOTE | 2022-06-02 22:52 | W.PM.HP.N ---
Date of service: 06/02/22 Time of Service: 22:52 Assessment and Plan Assessment and plan (1) Breakthrough seizure: Status: Acute Assessment and plan: Continue depakote. Depakote level pending. Start lacosamide. Neurology at [facility] would like to be notified if the valproic acid level is low and felt that there would not need to be an EEG. Consider a neuro consult in-house. Will monitor on neurochecks for now with seizure precautions. Checking CPK. (2) Neck pain: Status: Acute Assessment and plan: Suspect an injury during the seizure. This is not meningismus. Obtain XR c-spine and R shoulder. (3) Fever: Status: Acute Assessment and plan: Patient had a negative CXR and a negative UA. I suspect that procalcitonin of 0.3 could have been caused by a seizure. Doubt meningitis given clinical presentation. Fever could also have been post-ictal. Blood cultures were empirically obtained. The patient is not on empiric antibiotics at this time,however. (4) H/O non-insulin dependent diabetes mellitus: (5) CAD (coronary artery disease): Assessment and plan: Continue home aspirin, plavix, BB. [facility] neuro expressed concern over the patient and his not knowing which medications he is actually taking. Consider a home health nurse. 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 Does have a h/o behaviors at home. Continue home memantine, citalopram. Monitor behaviors. C/s palliative care. (7) Proctitis: Status: Acute Assessment and plan: Seen on CT. The patient reports no symptoms, and I wonder if the findings are not related to clinical illness or represent a stercoral colitis. Bowel regimen is written. NO role for abx at this time. (8) DVT prophylaxis: Status: Acute Assessment and plan: SC heparin (9) Discharge planning issues: Status: Acute Assessment and plan: DNR C/s PT. C/s palliative care Admit to the ICU for closer seizure monitoring. History of Present Illness History of Present Illness Chief Complaint: Two seizures at home Narrative: Mr Mortensen is an 86 year old male with PMHx of a seizure disorder (follows with [facility]), as well as h/o CAD s/p MT, HTN, hyperlipidemia, non-insulin dependent diabetes mellitus, dementia with behavioral disturbance, depression, who had two witnessed seizures in bed early today (1:30 am and 5 am). Reportedly, after this he was febrile to 101 at home, but not in our ER. The patient was previously on a combination of depakote 500 mg PO BID and lamotrigine, but lamotrigine was stopped 1 month ago. The patient was treated in our ER with depakote and lamotrigine. Per ER provider, the patient is still quite somnolent. [facility] neurology recommended addition of lacosamide to depakote rather than continuing lamictal. Previously, the patient had issues with keppra (behavioral changes?). Checking depakote level was recommended. If the level comes back low, neurology at [facility] would like to be notified so that the dose of depakote could be adjusted. Hospitalist admission was requested. On my interview with the patient, he reports a kink in the neck and a headache. He states he is also slightly short of breath. Lights are not bothering him, nor are the sounds. Review of Systems All systems reviewed & are unremarkable except as noted in HPI and below PFSH All Active Problems (Updated 06/03/22 @ 01:16 by Radha Herron MD) Neck pain (Acute) Proctitis (Acute) Discharge planning issues (Acute) DVT prophylaxis (Acute) Fever (Acute) Breakthrough seizure (Acute) COVID-19 (Acute) Generalized weakness (Acute) Rib fractures (Acute) Seizure (Acute) Medical History (Updated 06/03/22 @ 01:16 by Radha Herron MD) CAD (coronary artery disease) Dementia H/O non-insulin dependent diabetes mellitus HTN (hypertension) Hx of hyperlipidemia Kidney stones Lung cancer Myocardial infarction Seizure disorder UTI (urinary tract infection) Surgical History History of coronary artery stent placement History of tonsillectomy Family History (Updated 06/02/22 @ 23:08 by Radha Herron MD) Maternal Grandfather Leukemia Social History Smoking/Tobacco Use Status: Never Smoking risk assessment performed?: Yes Alcohol Intake: never Substance use type: does not use Do you feel safe at home: Yes Do you feel safe in your relationship?: Yes Meds Allergies and Home Medications Allergies Allergy/AdvReac Type Severity Reaction Status Date / Time oxycodone [From Percocet] AdvReac Unverified 02/20/21 12:53 Penicillins AdvReac Unverified 02/20/21 12:53 Home Medications Medication Instructions Recorded Confirmed Type acetaminophen 500 mg tablet (Mapap 1,000 mg PO BID PRN 04/27/16 06/02/22 History Extra Strength) albuterol sulfate 90 mcg/actuation 200 puff inhalation Q4H PRN PRN 04/27/16 11/26/21 History aerosol inhaler (Proventil HFA) clopidogrel 75 mg tablet (Plavix) 75 mg PO DAILY 04/27/16 06/02/22 History nitroglycerin 0.4 mg sublingual 0.4 mg sublingual DIRECTED PRN 04/27/16 11/26/21 History tablet (Nitrostat) pantoprazole 40 mg tablet,delayed 40 mg PO DAILY 04/27/16 06/02/22 History release aspirin 81 mg tablet,delayed 81 mg PO DAILY 12/18/19 06/02/22 History release atorvastatin 40 mg tablet (Lipitor) 40 mg PO DAILY 12/18/19 11/26/21 History docosahexaenoic acid (dha)-epa 120 120 cap PO DAILY 12/18/19 11/26/21 History mg-180 mg capsule latanoprost 0.005 % eye drops 0.005 drp ophthalmic (eye) DAILY 12/18/19 11/26/21 History (Xalatan) losartan 25 mg tablet 25 mg PO DAILY 12/18/19 11/26/21 History citalopram 10 mg tablet 20 mg PO DAILY 02/20/21 06/02/22 History fluticasone furoate 50 100 mcg inhalation DAILY 02/20/21 11/26/21 History mcg/actuation blister powder for inhalation therapeutic multivitamin 1 tab PO DAILY 02/20/21 06/02/22 History divalproex 500 mg tablet,extended 500 mg PO BID 11/26/21 06/02/22 History release 24 hr donepezil 10 mg tablet 10 mg PO DAILY 11/26/21 06/02/22 History melatonin 10 mg disintegrating 15 mg PO HS PRN 11/26/21 06/02/22 History tablet metoprolol succinate 25 mg 25 mg PO DAILY 11/26/21 06/02/22 History tablet,extended release 24 hr omega-3 fatty acids 1,000 mg PO DAILY 11/26/21 11/26/21 History tamsulosin 0.4 mg capsule 0.4 mg PO DAILY 11/26/21 06/02/22 History benzonatate 100 mg capsule 100 mg PO TID PRN PRN Cough #20 11/30/21 Rx caps ipratropium 20 mcg-albuterol 100 1 puff inhalation QID #4 grams 11/30/21 Rx mcg/actuation mist for inhalation (Combivent Respimat) lamotrigine 25 mg chewable 50 mg 06/02/22 History dispersible tablet memantine 5 mg tablet 5 mg PO QHS 06/02/22 06/02/22 History Exam Narrative Exam Narrative: General: Pleasant, cooperative elderly male who is A&Ox2 (takes a while to remember that he is in [facility]), answers questions appropriately Neurological: A&Ox2, CN II-XII intact, sensory intact, 5/5 strength throughout, able to move neck in all directions - preserved ROM, no meningismus, DTRs 2+ BLEs with contralateral spread Psychiatric: Appropriate speech pattern/content Skin: visible skin dry/intact; tinea pedis B feet HEENT: Atraumatic, normocephalic, EOMI, dry MM, clear oropharynx, no submandibular or cervical lymphadenopathy, no goiter or JVD Cardiovascular: RRR, bradycardic (high 40s), no m/r/g Lungs: CTAB Gastrointestinal: soft, nontender, nondistended Genitourinary: deferred Extremities: trace edema BLEs, 1+ pedal pulses B, no c/c; tinea pedis. Results Imaging Additional studies: EKG: HR 57, sinus bradycardia, no acute ischemia, old anteroseptal infarct CT head: 1. No acute intracranial process.? CXR: No acute pulmonary findings. CT abdomen/pelvis: 1. 3 mm stone in the distal right ureter just proximal to the UVJ without hydronephrosis. 2. Nonspecific bowel wall thickening of the rectosigmoid colon.? Infectious or inflammatory process should be considered.? No evidence of obstruction. 3. Stable hepatic hemangioma. Labs 06/02/22 13:50 06/02/22 13:50 Labs: Laboratory Results - last 24 hr 06/02/22 06/02/22 06/02/22 13:49 13:49 13:50 WBC RBC Hgb Hct MCV MCH MCHC RDW Plt Count MPV Immature Gran % Neutrophils % Lymphocytes % Monocytes % Eosinophils % Basophils % Nucleated RBC % Absolute Neutrophils Absolute Lymphocytes Absolute Monocytes Absolute Eosinophils Absolute Basophils VBG Lactate Sodium 140 Potassium 4.5 Chloride 103 Carbon Dioxide 31.0 Anion Gap 6.0 BUN 17 Creatinine 1.0 Est GFR (CKD-EPI 2020) 73.76 Glucose 89 Calcium 8.5 Magnesium 1.9 Total Bilirubin 0.5 AST 30 ALT 34 Alkaline Phosphatase 81 Total Protein 6.4 Albumin 3.5 TSH 1.74 Urine Color Yellow Urine Clarity Clear Urine pH 7.0 Ur Specific [place] 1.025 Urine Protein 100 H Urine Ketones Trace H Urine Blood Negative Urine Nitrite Negative Urine Bilirubin Negative Urine Urobilinogen 0.2 Ur Leukocyte Esterase Negative Urine RBC 0-2 Urine WBC 0-2 Ur Epithelial Cells Negative Urine Crystals Negative Urine Bacteria Negative Urine Casts Negative Urine Mucus Negative Ur Culture Indicated? No Urine Glucose Negative COVID-19 Source Nasopharynx SARS-CoV-2 (PCR) Negative Influenza Type A (PCR) Negative Influenza Type B (PCR) Negative RSV (PCR) Negative 06/02/22 06/02/22 13:50 14:30 WBC 6.64 RBC 4.48 Hgb 13.8 Hct 41.1 MCV 92 MCH 30.8 MCHC 33.6 RDW 14.4 H Plt Count 169 MPV 10.1 Immature Gran % 1.5 Neutrophils % 68.0 Lymphocytes % 14.2 Monocytes % 14.2 Eosinophils % 1.8 Basophils % 0.3 Nucleated RBC % 0.0 Absolute Neutrophils 4.52 Absolute Lymphocytes 0.94 L Absolute Monocytes 0.94 H Absolute Eosinophils 0.12 Absolute Basophils 0.02 VBG Lactate 1.8 H Sodium Potassium Chloride Carbon Dioxide Anion Gap BUN Creatinine Est GFR (CKD-EPI 2020) Glucose Calcium Magnesium Total Bilirubin AST ALT Alkaline Phosphatase Total Protein Albumin TSH Urine Color Urine Clarity Urine pH Ur Specific [place] Urine Protein Urine Ketones Urine Blood Urine Nitrite Urine Bilirubin Urine Urobilinogen Ur Leukocyte Esterase Urine RBC Urine WBC Ur Epithelial Cells Urine Crystals Urine Bacteria Urine Casts Urine Mucus Ur Culture Indicated? Urine Glucose COVID-19 Source SARS-CoV-2 (PCR) Influenza Type A (PCR) Influenza Type B (PCR) RSV (PCR) Last Vital Signs Temp 37.2 C 06/02/22 17:20 Pulse 52 L 06/02/22 21:01 Resp 18 06/02/22 21:13 BP 128/48 L 06/02/22 21:01 Pulse Ox 91 L 06/02/22 21:13 Time Spent Time spent with Patient: 55-74 minutes Time was spent: preparing to see the patient(eg.review tests), obtaining and/or reviewing separately otained hiistory, ordering medications,tests, procedures, referring, communicating with other health healthcare consulting manager, indepentently interpreting results, counseling the patient and care coordination
[2022-06-02 23:19] LABS: Procalcitonin < 0.1 ng/mL
[2022-06-02] MEDS: Lactated Ringers 1,000 ML 75 ML IV (23:51)
[2022-06-03] VITALS (49 sets, daily range): BP systolic 114–183; BP diastolic 38–88; PULSE 44–73; RESP 13–24; TEMP 36.6–37.2; O2SAT 89–96
[2022-06-03 00:44] LABS: VALPROIC ACID 58.9 ug/mL
[2022-06-03] MEDS: Memantine 5 MG TAB PO ×2 (00:54→22:33)
[2022-06-03] MEDS: Heparin 5,000 UNITS/ML VIAL 5000 UNITS SC ×2 (00:54→13:20)
--- NOTE | 2022-06-03 01:00 | DI.RAD_ITS ---
Exam(s) XR CERVICAL SPINE COMP 4-5V EXAM: XR CERVICAL SPINE COMP 4-5V CLINICAL HISTORY: neck and R shoulder discomfort post seizure. TECHNIQUE: 2D digital imaging was performed. Eight images were obtained. AP, odontoid, lateral and b ilateral oblique images were obtained. COMPARISON: No exams were available for comparison FINDINGS: The odontoid is intact. The lateral masses are well aligned. 3 mm anterolisthesis of C6 on C7 is not ed. There is disc space narrowing at C5-C6 and C6-C7. There are endplate osteophytes from C5-6 thro ugh C7-T1. No acute fracture or subluxation is present. No significant neural foraminal stenosis is p resent. Facet arthropathy is seen at multiple levels of the cervical spine. The bones are osteopenic . There is a moderate neural foraminal narrowing on the right at C4-C5. Atherosclerosis is seen in t he soft tissues. Lung apices are clear. IMPRESSION: Moderately severe cervical spondylosis. DATA REPOSITORY: RADIATION DOSE DELIVERED:
--- NOTE | 2022-06-03 01:00 | DI.RAD_ITS ---
Exam(s) XR SHOULDER RT COMPLETE 2+V EXAM: XR SHOULDER RT COMPLETE 2+V CLINICAL HISTORY: R shoulder discomfort post seizure. TECHNIQUE: 2D digital imaging was performed of the right shoulder. Four images were obtained. AP, Grashey, Y-view and axillary views were obtained. COMPARISON: No exams were available for comparison FINDINGS: BONES: No acute fracture is present. No bony destructive lesion is seen. JOINTS: No dislocation present. Degenerative changes are seen at the acromioclavicular joint with bon y hypertrophy. SOFT TISSUE: Soft tissue calcifications are seen at the inferior glenohumeral joint and adjacent to t he greater tuberosity. IMPRESSION: Degenerative changes of the right shoulder. No acute abnormality. DATA REPOSITORY: RADIATION DOSE DELIVERED:
[2022-06-03] MEDS: Lacosamide 100 MG TAB 300 MG PO (02:56)
[2022-06-03] MEDS: Divalproex Sodium 500 MG TAB.ER.24H PO ×3 (03:00→19:58)
[2022-06-03 06:28] LABS: Abs Immature Grans 0.04 10^3/uL (0.0-0.06); Absolute Basophil Count 0.01 10^3/uL (0.0-0.2); Absolute Eosinophil Count 0.34 10^3/uL (0.0-0.7); Absolute Lymphocyte Count 1.27 10^3/uL (1.2-3.4); Absolute Monocyte Count 0.78 10^3/uL (0.1-0.8); Basophils % 0.2; Eosinophils % 7.3; HCT 37.7 % (40.0-50.0); HGB 12.7 g/dL (13.5-17.5); Immature Grans % 0.9; Lymphocytes % 27.4; MCH 31.1 pg (27.0-33.0); MCHC 33.7 % (32.0-36.0); MCV 92 fL (80-95); MPV 9.9 fL (8.0-11.0); Monocytes % 16.8; Neutrophils % 47.4; Platelet Count 131 10^3/uL (130-400); RBC 4.08 10^6/uL (4.36-5.78); RDW 14.6 % (11.8-14.1); RDW-SD 49.9 fL; WBC 4.64 10^3/uL (4.4-10.8)
[2022-06-03 07:02] LABS: ALT 25 U/L (16-63); AST 27 U/L (15-37); Albumin 2.9 g/dL (3.4-5.0); Alkaline Phosphatase 64 U/L (46-116); Anion Gap 5.5 mmol/L (3-11); BUN 13 mg/dL (7-18); Bilirubin, Direct 0.2 mg/dL (0.0-0.2); Bilirubin, Total 0.8 mg/dL (0.2-1.0); CO2 29.5 mmol/L (21.0-32.0); CREATININE 0.9 mg/dL (0.70-1.30); Calcium 8.4 mg/dL (8.5-10.1); Chloride 105 mmol/L (98-107); Creatine Kinase 64 U/L (39-308); Glucose 78 mg/dL (74-106); Potassium 3.9 mmol/L (3.5-5.1); Sodium 140 mmol/L (136-145); Total Protein 5.5 g/dL (6.4-8.2)
[2022-06-03 08:08] LABS: Hemoglobin A1C 5.9 % (<5.7)
--- NOTE | 2022-06-03 08:38 | INITIAL_ITS ---
- If Service Date Differs Date of service: 06/03/22 Time of Service: 08:38 Care Management Initial Assess REASON FOR HOSPITALIZATION:: Breakthrough seizure PAST MEDICAL HISTORY/PAST SURGICAL HISTORY:: All Active Problems (Updated 06/03/22 @ 01:16 by Radha Herron MD). Neck pain (Acute). Proctitis (Acute). Discharge planning issues (Acute). DVT prophylaxis (Acute). Fever (Acute). Breakthrough seizure (Acute). COVID-19 (Acute). Generalized weakness (Acute). Rib fractures (Acute). Seizure (Acute). Medical History (Updated 06/03/22 @ 01:16 by Radha Herron MD). CAD (coronary artery disease). Dementia. H/O non-insulin dependent diabetes mellitus. HTN (hypertension). Hx of hyperlipidemia. Kidney stones. Lung cancer. Myocardial infarction. Seizure disorder. UTI (urinary tract infection). Surgical History . History of coronary artery stent placement. 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 He descibes himself as being active and independent at baseline. His Aletha provides his transportation. He has 4 children, sharing that his daughter is a RN who lives in [place] and a son Jp who at 19 years old from a motorcycle accident. He also has 2 other adult children and shares that they have addiction to alcohol. CURRENT FUNCTIONAL STATUS:: Dimitrios is sitting up in bed watching soccer when CM met with him. Per pt, he enjoys all sports, especially football. He is polite and engages in conversation. ADVANCE DIRECTIVES:: On file, [facility] is queenie Nash. agent is Cecilia Cortes. Has patient been provided with info about the portal/API?: Yes Did the patient sign up for the portal?: No CODE STATUS:: DNI INSURANCE COVERAGE / FINANCIAL ISSUES:: AARP. Medicare CURRENT HOME/COMMUNITY SERVICES/EQUIPMENT:: [place] PRIMARY CARE PHYSICIAN:: Jordon Padron POTENTIAL DISCHARGE NEEDS:: Discharge plan, follow up appointments, assessment for increased community supports. PATIENT/FAMILY EDUCATION NEEDS:: Review discharge instructions, limitations, medications and plan to follow community providers. Review ask me three. TRANSPORTATION:: via private vehicle with PLAN:: Anticipate, Edward will discharge home with [facility] services (if indicated) via private vehicle with Aletha. He will follow up with Neurology and his PCP. He is followed by [facility] Neurology. CM will continue follow.
[2022-06-03] MEDS: Ketoconazole 2% CREAM 15 GM TUBE TP (09:32)
[2022-06-03] MEDS: Lacosamide 100 MG TAB 150 MG PO (09:32)
[2022-06-03] MEDS: Tamsulosin 0.4 MG CAPCR PO (09:33)
[2022-06-03] MEDS: Donepezil 5 MG TAB 10 MG PO (09:34)
[2022-06-03] MEDS: Citalopram 20 MG TAB PO (09:36)
[2022-06-03] MEDS: Clopidogrel 75 MG TAB PO (09:36)
[2022-06-03] MEDS: Aspirin E.C. 81 MG TABEC PO (09:38)
[2022-06-03] MEDS: Pantoprazole 40 MG TABCR PO (09:39)
[2022-06-03] MEDS: Multivitamin TAB 1 TAB PO (09:39)
[2022-06-03] MEDS: Normal Saline Flush 10 ML SYR IVP ×2 (09:40→19:58)
[2022-06-03] MEDS: Docusate Sodium 100 MG CAP PO ×2 (09:40→19:58)
--- NOTE | 2022-06-03 10:12 | W.PM.PROGNOT ---
Date of Service Date of service: 06/03/22 Time of Service: 10:12 Assessment and Plan Assessment and plan (1) Breakthrough seizure: Status: Acute Assessment and plan: Continue depakote, as his level was at the lower therapeutic level, consider increase of his dose. I have asked pharmacy to look at the pharmacokinetic to recommend a dose adjustment. However given that there is some uncertainty about his medication compliance this complicates matter. Dr. Herron indicated that [facility] neurolog[facility] wanted him on lacomsamide instead of lamictal, however he was kept on the lamictal. I will ask Dr. Fox to assist w/ his meds. I will ask [facility] pharmacy to reconcile his home meds and I will call [facility] neurolog[facility] to discuss his treatment. Critical care time spent interviewing and examining the patient, reviewing studies, discussing case with patient's nurse and consulting physicians was 30 minutes (2) Neck pain: Status: Acute Assessment and plan: Suspect an injury during the seizure. This is not meningismus. Obtain XR c-spine and R shoulder. (3) Fever: Status: Acute Assessment and plan: Patient had a negative CXR and a negative UA. I suspect that procalcitonin of 0.3 could have been caused by a seizure. Doubt meningitis given clinical presentation. Fever could also have been post-ictal. Blood cultures were empirically obtained. The patient is not on empiric antibiotics at this time,however. (4) H/O non-insulin dependent diabetes mellitus: Assessment and plan: not on any diabetic meds. A1c is 5.9% therefore prediabetic. Will monitor glucose but not cover w/ insulin unless glucose is over 180 (5) CAD (coronary artery disease): Assessment and plan: Continue home aspirin, plavix, BB. [facility] neuro expressed concern over the patient and his not knowing which medications he is actually taking. Consider a home health nurse. 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 Does have a h/o behaviors at home. Continue home memantine, citalopram. Monitor behaviors. C/s palliative care. (7) Proctitis: Status: Acute Assessment and plan: Seen on CT. The patient reports no symptoms, and I wonder if the findings are not related to clinical illness or represent a stercoral colitis. Bowel regimen is written. NO role for abx at this time. (8) DVT prophylaxis: Status: Acute Assessment and plan: SC heparin (9) Discharge planning issues: Status: Acute Assessment and plan: DNR C/s PT. C/s palliative care Admit to the ICU for closer seizure monitoring. Subjective Subjective Interval history since last seen: 86-year-old male with past medical history of seizure disorder followed by [facility], CAD status post [place], HTN, HLD, NIDDM, dementia, depression who sustained 2 witnessed seizures at home while in bed. First 1 at 1:30 AM second to 5 AM. Reportedly was febrile to 101 at home. Patient previously been on combination of Depakote 500 mg twice daily and lamotrigine. However his lamotrigine was stopped about a month ago for unclear reasons. Patient was treated the emergency department with a dose of lamotrigine 100 mg orally and Depakote 5 mg orally. He had no further seizures in the emergency department. Her ER department contacted [facility] neurolog[facility] recommended addition of lacosamide to his Depakote rather than continuing his Lamictal. Nevertheless the admitting hospitalist kept him on Lamictal and Depakote. His valproic acid level last night was 58.9 prior to him receiving additional Depakote. CT imaging of his head showed no acute intracranial process. He has decreased attenuation right matter consistent with small vessel ischemic disease. CT of the abdomen pelvis was performed via the emergency department due to nonspecific complaints of abdominal pain he has a 3 mm stone in the distal right ureter just proximal to the ureterovesical junction without hydronephrosis. He has nonspecific bowel gas thickening in the rectosigmoid colon. No evidence of obstruction. He has a stable hemangioma. Chest x-ray last night showed no acute pulmonary findings. Patient was complaining of some neck and right shoulder pain that was felt to be secondary to his seizure. X-ray has been ordered for this morning of his neck and shoulder. [facility] neurolog[facility] expressed concern over the patient and his not knowing which medications he is actually taking. 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 Patient's been on Namenda and citalopram at home. When I questioned the patient he seems to be oriented to person place he knows the name of the hospital in the city the state and he was correct on the month and date. However he was vague about his medications he did not seem to remember having history of seizures although he says his tells him he has seizures. He does not recall seeing a neurologist at [facility]. Per Dr. Herron she is concerned that the may not be accurate on his medical history either therefore we will asked [facility] pharmacology to reconcile his medication list and I will contact [facility] neurolog[facility] to discuss his work-up and treatment of his seizures. Furthermore we will ask our own neurologist Dr. Fox to assist with management of his seizures. Exam Narrative Exam Narrative: Dimitrios is alert answers questions appropriately has no focal neurodeficits no facial asymmetry no dysarthric speech. He is oriented to person place time and circumstance. Lungs are clear to auscultation Heart is regular rate and rhythm Neuro exam reveals no focal motor deficits of his upper or lower extremities no facial asymmetry no dysarthric speech. Will extraocular motions intact. Sensory exam grossly intact light touch. DTR's and phone sensory exam was not performed. Patient is off to have his x-rays done of his neck and shoulder I was only able to briefly interview him and examine him as nursing was getting him into his wheelchair to go to x-ray. Patient scheduled to have an EEG this morning. Objective Last Vital Signs Temp 37.0 C 06/03/22 02:26 Pulse 56 L 06/03/22 09:23 Resp 23 06/03/22 09:23 BP 145/72 H 06/03/22 09:23 Pulse Ox 90 L 06/03/22 09:04 Laboratory Results - last 24 hr 06/02/22 06/02/22 06/02/22 13:49 13:49 13:50 WBC RBC Hgb Hct MCV MCH MCHC RDW Plt Count MPV Immature Gran % Neutrophils % Lymphocytes % Monocytes % Eosinophils % Basophils % Nucleated RBC % Absolute Neutrophils Absolute Lymphocytes Absolute Monocytes Absolute Eosinophils Absolute Basophils VBG Lactate Sodium 140 Potassium 4.5 Chloride 103 Carbon Dioxide 31.0 Anion Gap 6.0 BUN 17 Creatinine 1.0 Est GFR (CKD-EPI 2020) 73.76 Glucose 89 Hemoglobin A1c Calcium 8.5 Magnesium 1.9 Total Bilirubin 0.5 Conjugated Bilirubin AST 30 ALT 34 Alkaline Phosphatase 81 Creatine Kinase Total Protein 6.4 Albumin 3.5 Procalcitonin TSH 1.74 Urine Color Yellow Urine Clarity Clear Urine pH 7.0 Ur Specific [place] 1.025 Urine Protein 100 H Urine Ketones Trace H Urine Blood Negative Urine Nitrite Negative Urine Bilirubin Negative Urine Urobilinogen 0.2 Ur Leukocyte Esterase Negative Urine RBC 0-2 Urine WBC 0-2 Ur Epithelial Cells Negative Urine Crystals Negative Urine Bacteria Negative Urine Casts Negative Urine Mucus Negative Ur Culture Indicated? No Urine Glucose Negative Valproic Acid COVID-19 Source Nasopharynx SARS-CoV-2 (PCR) Negative Influenza Type A (PCR) Negative Influenza Type B (PCR) Negative RSV (PCR) Negative Add-On Test Request 06/02/22 06/02/22 06/02/22 13:50 14:30 20:40 WBC 6.64 RBC 4.48 Hgb 13.8 Hct 41.1 MCV 92 MCH 30.8 MCHC 33.6 RDW 14.4 H Plt Count 169 MPV 10.1 Immature Gran % 1.5 Neutrophils % 68.0 Lymphocytes % 14.2 Monocytes % 14.2 Eosinophils % 1.8 Basophils % 0.3 Nucleated RBC % 0.0 Absolute Neutrophils 4.52 Absolute Lymphocytes 0.94 L Absolute Monocytes 0.94 H Absolute Eosinophils 0.12 Absolute Basophils 0.02 VBG Lactate 1.8 H Sodium Potassium Chloride Carbon Dioxide Anion Gap BUN Creatinine Est GFR (CKD-EPI 2020) Glucose Hemoglobin A1c Calcium Magnesium Total Bilirubin Conjugated Bilirubin AST ALT Alkaline Phosphatase Creatine Kinase Total Protein Albumin Procalcitonin TSH Urine Color Urine Clarity Urine pH Ur Specific [place] Urine Protein Urine Ketones Urine Blood Urine Nitrite Urine Bilirubin Urine Urobilinogen Ur Leukocyte Esterase Urine RBC Urine WBC Ur Epithelial Cells Urine Crystals Urine Bacteria Urine Casts Urine Mucus Ur Culture Indicated? Urine Glucose Valproic Acid 58.9 COVID-19 Source SARS-CoV-2 (PCR) Influenza Type A (PCR) Influenza Type B (PCR) RSV (PCR) Add-On Test Request 06/02/22 06/02/22 06/03/22 20:40 22:52 05:22 WBC RBC Hgb Hct MCV MCH MCHC RDW Plt Count MPV Immature Gran % Neutrophils % Lymphocytes % Monocytes % Eosinophils % Basophils % Nucleated RBC % Absolute Neutrophils Absolute Lymphocytes Absolute Monocytes Absolute Eosinophils Absolute Basophils VBG Lactate Sodium 140 Potassium 3.9 Chloride 105 Carbon Dioxide 29.5 Anion Gap 5.5 BUN 13 Creatinine 0.9 Est GFR (CKD-EPI 2020) 83.70 Glucose 78 Hemoglobin A1c Calcium 8.4 L Magnesium 2.0 Total Bilirubin 0.8 Conjugated Bilirubin 0.2 AST 27 ALT 25 Alkaline Phosphatase 64 Creatine Kinase 64 Total Protein 5.5 L Albumin 2.9 L Procalcitonin < 0.1 TSH Urine Color Urine Clarity Urine pH Ur Specific [place] Urine Protein Urine Ketones Urine Blood Urine Nitrite Urine Bilirubin Urine Urobilinogen Ur Leukocyte Esterase Urine RBC Urine WBC Ur Epithelial Cells Urine Crystals Urine Bacteria Urine Casts Urine Mucus Ur Culture Indicated? Urine Glucose Valproic Acid COVID-19 Source SARS-CoV-2 (PCR) Influenza Type A (PCR) Influenza Type B (PCR) RSV (PCR) Add-On Test Request DONE 06/03/22 06/03/22 05:22 06:12 WBC 4.64 RBC 4.08 L Hgb 12.7 L Hct 37.7 L MCV 92 MCH 31.1 MCHC 33.7 RDW 14.6 H Plt Count 131 MPV 9.9 Immature Gran % 0.9 Neutrophils % 47.4 Lymphocytes % 27.4 Monocytes % 16.8 Eosinophils % 7.3 Basophils % 0.2 Nucleated RBC % 0.0 Absolute Neutrophils 2.20 Absolute Lymphocytes 1.27 Absolute Monocytes 0.78 Absolute Eosinophils 0.34 Absolute Basophils 0.01 VBG Lactate Sodium Potassium Chloride Carbon Dioxide Anion Gap BUN Creatinine Est GFR (CKD-EPI 2020) Glucose Hemoglobin A1c 5.9 H Calcium Magnesium Total Bilirubin Conjugated Bilirubin AST ALT Alkaline Phosphatase Creatine Kinase Total Protein Albumin Procalcitonin TSH Urine Color Urine Clarity Urine pH Ur Specific [place] Urine Protein Urine Ketones Urine Blood Urine Nitrite Urine Bilirubin Urine Urobilinogen Ur Leukocyte Esterase Urine RBC Urine WBC Ur Epithelial Cells Urine Crystals Urine Bacteria Urine Casts Urine Mucus Ur Culture Indicated? Urine Glucose Valproic Acid COVID-19 Source SARS-CoV-2 (PCR) Influenza Type A (PCR) Influenza Type B (PCR) RSV (PCR) Add-On Test Request Time Spent with Patient Time Spent with Patient: 25-34 minutes Time was spent: preparing to see the patient(eg.review tests), obtaining and/or reviewing separately otained hiistory, ordering medications,tests, procedures, referring, communicating with other health child care sitter, indepentently interpreting results and care coordination
--- NOTE | 2022-06-03 12:25 | PDOC.EEG ---
Neurology EEG EEG: [facility] Department of Neurology INPATIENT EEG REPORT Date of Recordin06/03/22 Interpreting Physician: Dr. Татьяна Fox Reason for study: Mr. Mortensen is an 86 year-old man with known epilepsy and dementia who was admitted with breakthrough seizures. Current Medications: Home Medications Medication Instructions Recorded Confirmed Type acetaminophen 500 mg tablet (Mapap 1,000 mg PO BID PRN 04/27/16 06/02/22 History Extra Strength) albuterol sulfate 90 mcg/actuation 200 puff inhalation Q4H PRN PRN 04/27/16 11/26/21 History aerosol inhaler (Proventil HFA) clopidogrel 75 mg tablet (Plavix) 75 mg PO DAILY 04/27/16 06/02/22 History nitroglycerin 0.4 mg sublingual 0.4 mg sublingual DIRECTED PRN 04/27/16 11/26/21 History tablet (Nitrostat) pantoprazole 40 mg tablet,delayed 40 mg PO DAILY 04/27/16 06/02/22 History release aspirin 81 mg tablet,delayed 81 mg PO DAILY 12/18/19 06/02/22 History release atorvastatin 40 mg tablet (Lipitor) 40 mg PO DAILY 12/18/19 11/26/21 History docosahexaenoic acid (dha)-epa 120 120 cap PO DAILY 12/18/19 11/26/21 History mg-180 mg capsule latanoprost 0.005 % eye drops 0.005 drp ophthalmic (eye) DAILY 12/18/19 11/26/21 History (Xalatan) losartan 25 mg tablet 25 mg PO DAILY 12/18/19 11/26/21 History citalopram 10 mg tablet 20 mg PO DAILY 02/20/21 06/02/22 History fluticasone furoate 50 100 mcg inhalation DAILY 02/20/21 11/26/21 History mcg/actuation blister powder for inhalation therapeutic multivitamin 1 tab PO DAILY 02/20/21 06/02/22 History divalproex 500 mg tablet,extended 500 mg PO BID 11/26/21 06/02/22 History release 24 hr donepezil 10 mg tablet 10 mg PO DAILY 11/26/21 06/02/22 History melatonin 10 mg disintegrating 15 mg PO HS PRN 11/26/21 06/02/22 History tablet metoprolol succinate 25 mg 25 mg PO DAILY 11/26/21 06/02/22 History tablet,extended release 24 hr omega-3 fatty acids 1,000 mg PO DAILY 11/26/21 11/26/21 History tamsulosin 0.4 mg capsule 0.4 mg PO DAILY 11/26/21 06/02/22 History benzonatate 100 mg capsule 100 mg PO TID PRN PRN Cough #20 11/30/21 Rx caps ipratropium 20 mcg-albuterol 100 1 puff inhalation QID #4 grams 11/30/21 Rx mcg/actuation mist for inhalation (Combivent Respimat) lamotrigine 25 mg chewable 50 mg 06/02/22 History dispersible tablet memantine 5 mg tablet 5 mg PO QHS 06/02/22 06/02/22 History METHODS: A 21 channel digitized electroencephalogram was performed in the [facility] Med/Surg Floor or ICU. The 10/20 international system of electrode placement was used and bipolar and referential electrode montages were recorded. In addition to EEG the patient was monitored for EKG and lateral/vertical eye movements. Activation procedures of photic stimulation and hyperventilation were performed if applicable. Video was used during activation procedures and during events where applicable. The duration of the recording was 30 minutes. DESCRIPTION OF EEG: The patient was noted to be awake only during the recording. No discernible posterior background rhythm was present. With eye opening the background activity changed to a low voltage mixture of alpha, beta, and occasional theta range frequencies. Faster frequencies were present in the bilateral anterior head regions. There was a normal anterior-posterior voltage gradient. No drowsiness or stage II sleep was recorded. There was mild diffuse, generalized, polymorphic theta slowing throughout the recording, more so in the bilateral temporal lobes. Activating Procedures: Photic stimulation was performed which produced a symmetrical posterior driving response at various flash frequencies. Hyperventilation was not performed. EKG: EKG revealed normal sinus rhythm. 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 No focal regions of cerebral dysfunction or epileptiform activity was present. Clinical correlation is advised. Татьяна Fox MD
--- NOTE | 2022-06-03 15:01 | PT.INTREAT ---
Date of service: 06/03/22 Time of Service: 14:35 PT Notes Visit Reasons: Breakthrough Seizures Inpatient Physical Therapy Treatment Note [facility] Date: 06/03/2022 PRECAUTIONS: Fall, activity as tolerated, seizure SUBJECTIVE: Ed is pleasant and agreeable to participating in PT. He reports that he is feeling almost back to his baseline. He reports that his is more concerned about his seizures than he is. He hopes to go home soon. OBJECTIVE: PAIN: No c/o pain BED MOBILITY/TRANSFERS Supine-sit: I Sit-stand: SBA Stand-sit: SBA GAIT: Assistive Device: SPC Weight bearing: Full Assist: CGA Distance: 200' Deviation: Gait unremarkable, slow pacing ASSESSMENT: Patient tolerated session without complaint. He demonstrates steady gait and pacing with use of SPC. PLAN: Continue with gait and transfer training, and add global strengthening for improved activity tolerance. TREATMENT CODE/TIME: 25 minutes; 71315 x2 (14:35)
--- NOTE | 2022-06-03 18:50 | PT.INIE ---
Date of service: 06/03/22 Time of Service: 09:02 PT Notes Visit Reasons: Breakthrough Seizures Physical Therapy Inpatient Initial Evaluation Date: 06/03/2022 Referring Doctor: Radha Herron MD PT Orders: PT CONSULT: Limited ability Precautions: Fall. Standard. Activity as tolerated. Seizure precautions. Patient Profile/Admitting Diagnosis: Dimitrios is a 89-year-old male who presented to the ED on 06/02/20202022 due to seizures and fever along with report of kink in the neck and headache. Patient is admitted for management of seizures, neck pain, fever, CAD, dementia, and proctitis. PMHX: All Active Problems?(Updated 06/03/22 @ 01:16 by Radha Herron MD) Neck pain (Acute) Proctitis (Acute) Discharge planning issues (Acute) DVT prophylaxis (Acute) Fever (Acute) Breakthrough seizure (Acute) COVID-19 (Acute) Generalized weakness (Acute) Rib fractures (Acute) Seizure (Acute) Medical History?(Updated 06/03/22 @ 01:16 by Radha Herron MD) CAD (coronary artery disease) Dementia H/O non-insulin dependent diabetes mellitus HTN (hypertension) Hx of hyperlipidemia Kidney stones Lung cancer Myocardial infarction Seizure disorder UTI (urinary tract infection) Surgical History? History of coronary artery stent placement History of tonsillectomy Social History/Home Situation: Lives with in a private home. Uses SPC occasionally. Equipment Owned/DME: SPC Subjective: Agreeable to PT consult. Denies headache, chest pain, and lightheadedness throughout. Did report being so sleepy and tired. No report of neck pain. Objective: General Observation: Supine in bed. Telemetry monitoring in place. IV access in R UE. Mental Status: Alert and oriented as to person, place, time, and purpose. Able to pay attention, focus, and respond appropriately. Pain: Denies Vital Signs: VS WNL as closely monitored via tele ROM: Right Upper Extremity: Shoulder Flexion WFL. Shoulder abduction WFL. Elbow flexion WFL. Wrist flexion WFL. Functional opening and closing of hand WFL. Left Upper Extremity: Shoulder Flexion WFL. Shoulder abduction WFL. Elbow flexion WFL. Wrist flexion WFL. Functional opening and closing of hand WFL. Right Lower Extremity: Hip flexion WFL. Hip abduction WFL. Knee flexion WFL. Ankle dorsiflexion WFL. Ankle plantarflexion WFL. Left Lower Extremity: Hip flexion WFL. Hip abduction WFL. Knee flexion WFL. Ankle dorsiflexion WFL. Ankle plantarflexion WFL. Strength: Right Upper Extremity: Shoulder flexors 4-/5. Shoulder abductors 4-/5. Elbow flexors 4-/5. Elbow extensors 4-/5. Notching Press Operator strong. Left Upper Extremity: Shoulder flexors 4-/5. Shoulder abductors 4-/5. Elbow flexors 4-/5. Elbow extensors 4-/5. Notching Press Operator strong. Right Lower Extremity: Hip flexors 4-/5. Hip abductors 4-/5. Knee flexors 4-/5. Knee extensors 4-/5. Ankle dorsiflexors 4-/5. Ankle plantarflexors 4-/5. Left Lower Extremity: Hip flexors 4-/5. Hip abductors 4-/5. Knee flexors 4-/5. Knee extensors 4-/5. Ankle dorsiflexors 4-/5. Ankle plantarflexors 4-/5. Bed Mobility/Transfers: Supine to sit contact guard assist Sit to supine contact guard assist Sit to stand contact guard assist with FWW Stand to sit contact guard assist with FWW Bed to reclining chair contact guard assist with FWW Reclining chair to bed contact guard assist with FWW Gait: Instructed patient with level surface ambulation of 5 feet + 15 feet requiring contact guard assist. Maite decreased. Step height decreased. Step length decreased. Balance: Static Sitting: Normal Dynamic Sitting: Good Static Standing: Fair Dynamic Standing: Fair Special Tests: Mobility Limitations Standardized Measure [facility] AM-PAC 6 clicks Basic Mobility Inpatient Short Form: Raw Score: 18 CMS Score: 47% deficit Informed Consent/Education: Patient was instructed in purpose of PT consult and plan of care. Agreeable to proceed with established PT POC to achieve personal goals. Assessment: Activity tolerance poor, needs frequent rests. Has family who can be avilable to help as needed. Patient presents with clinical signs and symptoms consistent with current/admitting diagnoses that have resulted to mobility limitations, gait instability, generalized weakness, and overall ADL decline as demonstrated by the following impairment level findings: 1. Decreased strength to B UE/LE major muscle groups 2. Impaired sitting/standing balance 3. Impaired activity tolerance 5. Minimal shortness of breath Impairments are contributing to the following functional limitations: 1. Decline in bed mobility skills 2. Decline in transfer skills 3. Difficulty with ambulation without assistive device and physical assistance 4. Increased completion time for mobility ADL performance 5. Increased risk for falls 6. Difficulty with managing steps alone safely Patient is assessed as a 35191 moderate complexity based on the following: History: 86-year-old female with past medical history as indicated above Examination: Demonstrable impairment in strength, balance, and mobility level with underlying impairments and functional limitations as exhibited above as well as deficit score of 47% utilizing the [facility] Mobility Inpatient Short Form Presentation: Evolving Decision Makin moderate complexity Goals: Goals X1 week 1. Supine-Sit independent 2. Sit-Supine independent 3. Sit-Stand independent 4. Stand-Sit independent with SPC 5. Bed-Chair independent with SPC 6. Chair-Bed independent with SPC 7. Independent gait on level surface with use of SPC for at least 300 feet without report of pain nor dyspnea 8. Independent stair negotiation while holding onto B rails for at least 3 steps without report of pain nor dyspnea 9. Independent with home exercise program 10. Good static and dynamic standing balance/tolerance Plan of Care/Treatment Plan: 1-2x/day, 7 days/week x 1 week. Plan of care has been reviewed with the CUSTOMER SUPPORT COORDINATOR providing the service under Physical Therapy direction. Initiate Physical Therapy intervention for pain management as needed, strengthening, bed mobility, transfers, gait, stairs, balance training, and use of assistive device. DISCHARGE RECOMMENDATIONS: [] Home with no services [] [X] Home with service. Patient will benefit from home health PT services in order to progress mobility level using least restrictive assistive ambulatory device, assess home safety, identify additional equipment needs, and establish a functional maintenance program that will increase ability of patient to remain at home. [] Home with outpatient PT [] [] SNF for continued rehabilitation [] [] External Relations Manager Care [] [] SNF versus LTC based on ability to participate and progress [] TREATMENT CODE/TIME: 42658 x 28 minutes beginning at 9:02 AM. Thank you for the opportunity to participate in the care of this patient. Marly Esposito PT, DPT, CLT [facility], [place]
[2022-06-03] MEDS: Lacosamide 100 MG TAB PO (19:58)
--- NOTE | 2022-06-03 22:19 | TELEP.MEDR_ITS ---
Date of service: 06/03/22 Time of Service: 22:19 Telepharmacy Home Med Rec Allergies Allergies: oxycodone [From Percocet] Adverse Reaction (Unverified 02/20/21 12:53) Penicillins Adverse Reaction (Unverified 02/20/21 12:53) Interview Person Interviewed: * Daughter (Hilda) Quality Quality of Interview/Accuracy of Medication List: Excellent Sources Sources used to compile medication list: [employer] Medication List, Patient List and [employer] Changes made to Home Medication List: ADDITIONS: * Lacosamide 100mg PO BID DELETIONS: * Tessalon * Fish oil * Flovent * Combivent * Lamictal * Losartan * Xalatan CHANGES: * none Recommended Changes Attestation: The home medication list is now updated to the best of my knowledge and is ready to be reconciled by the provider. Please contact the TelePharmacy Medication Reconciliation Pharmacist at for any questions.
--- NOTE | 2022-06-03 22:19 | TELEP.MEDREC ---
Date of service: 06/03/22 Time of Service: 22:19 Telepharmacy Home Med Rec Allergies Allergies: oxycodone [From Percocet] Adverse Reaction (Unverified 02/20/21 12:53) Penicillins Adverse Reaction (Unverified 02/20/21 12:53) Interview Person Interviewed: Daughter (Hilda) Quality Quality of Interview/Accuracy of Medication List: Excellent Sources Sources used to compile medication list: [email or web address] Medication List, Patient List and SureScripts Changes made to Home Medication List: ADDITIONS: Lacosamide 100mg PO BID DELETIONS: Tessalon Fish oil Flovent Combivent Lamictal Losartan Xalatan CHANGES: none Recommended Changes Attestation: The home medication list is now updated to the best of my knowledge and is ready to be reconciled by the provider. Please contact the TelePharmacy Medication Reconciliation Pharmacist at for any questions.
[2022-06-04] VITALS (20 sets, daily range): BP systolic 100–175; BP diastolic 51–72; PULSE 49–69; RESP 11–20; TEMP 36.1–36.8; O2SAT 89–95
[2022-06-04 05:54] LABS: Abs Immature Grans 0.05 10^3/uL (0.0-0.06); Absolute Basophil Count 0.02 10^3/uL (0.0-0.2); Absolute Eosinophil Count 0.34 10^3/uL (0.0-0.7); Absolute Lymphocyte Count 0.98 10^3/uL (1.2-3.4); Absolute Monocyte Count 0.86 10^3/uL (0.1-0.8); Absolute Neutrophil Count 1.44 10^3/uL (1.2-6.7); Basophils % 0.5; Eosinophils % 9.2; HCT 40.4 % (40.0-50.0); HGB 13.9 g/dL (13.5-17.5); Immature Grans % 1.4; Lymphocytes % 26.6; MCHC 34.4 % (32.0-36.0); MCV 90 fL (80-95); MPV 9.5 fL (8.0-11.0); Monocytes % 23.3; Platelet Count 127 10^3/uL (130-400); RBC 4.48 10^6/uL (4.36-5.78); RDW 14.1 % (11.8-14.1); RDW-SD 46.8 fL; WBC 3.69 10^3/uL (4.4-10.8)
[2022-06-04 06:12] LABS: ALT 29 U/L (16-63); AST 35 U/L (15-37); Alkaline Phosphatase 66 U/L (46-116); BUN 17 mg/dL (7-18); Bilirubin, Total 0.6 mg/dL (0.2-1.0); Calcium 8.6 mg/dL (8.5-10.1); Chloride 101 mmol/L (98-107); Estimated GFR 73.76 (mL/min/1.73m2); Glucose 89 mg/dL (74-106); Sodium 135 mmol/L (136-145); Total Protein 5.7 g/dL (6.4-8.2)
[2022-06-04] MEDS: Lacosamide 100 MG TAB PO (09:08)
[2022-06-04] MEDS: Aspirin E.C. 81 MG TABEC PO (09:08)
[2022-06-04] MEDS: Citalopram 20 MG TAB PO (09:08)
[2022-06-04] MEDS: Donepezil 5 MG TAB 10 MG PO (09:08)
[2022-06-04] MEDS: Pantoprazole 40 MG TABCR PO (09:08)
[2022-06-04] MEDS: Multivitamin TAB 1 TAB PO (09:08)
[2022-06-04] MEDS: Divalproex Sodium 500 MG TAB.ER.24H PO (09:08)
[2022-06-04] MEDS: Docusate Sodium 100 MG CAP PO (09:09)
[2022-06-04] MEDS: Tamsulosin 0.4 MG CAPCR PO (09:09)
[2022-06-04] MEDS: Metoprolol CR 25 MG TABCR PO (09:09)
[2022-06-04] MEDS: Clopidogrel 75 MG TAB PO (09:09)
[2022-06-04] MEDS: Ketoconazole 2% CREAM 15 GM TUBE TP (09:10)
[2022-06-04] MEDS: Heparin 5,000 UNITS/ML VIAL 5000 UNITS SC (09:17)
[2022-06-04 09:24] LABS: C-Reactive Protein 0.54 mg/dL (0.0-0.3)
--- NOTE | 2022-06-04 09:37 | CMPROGNOTE_ITS ---
- If Service Date Differs Date of service: 06/04/22 Time of Service: 09:37 Care Management Progress Note S/O: Dimitrios is medically ready for discharge today. He is awake, alert and engages in conversation. CM spoke with pts Aletha by phone in length today about community resources and Home Health services. Per Aletha, no [facility] services are needed at this time but she did accept a referral to the [place] [facility] for more information on MOW and general information about support services [place]. Referral was faxed. A: 86 year old male admitted to [facility] on 06/02/22 for Breakthrough Seizure P: Anticipate, Dimitrios will discharge home with [facility] services (if indicated) via private vehicle with Aletha. He will follow up with Neurology and his PCP. He is [place] [facility] [place]. CM will continue follow.
--- NOTE | 2022-06-04 12:27 | DSE_ITS ---
Date of service: 06/04/22 Time of Service: 12:28 DS: Diagnosis Discharge Diagnosis (1) Breakthrough seizure: Status: Acute Asessment and Plan: Depakote level was found to be 58.9 Depakote continued and lacosamide initiated at 100mg BID. No further seizures noted. EEG performed: INTERPRETATION: This EEG is abnormal due to a poorly formed PDR and mild generalized arrhythmic slowing. CLINICAL CORRELATION: The above slowing is suggestive of a mild diffuse cerebral encephalopathy of broad differential including toxic-metabolic etiology.? No focal regions of cerebral dysfunction or epileptiform activity was present.? Clinical correlation is advised. He sees neurology at [facility] and hospitalist spoke with Dr Chava Dan who planned on securing a f/u appt for Mr Mortensen. (2) Neck pain: Status: Resolved Asessment and Plan: Myofascial in nature. Possibly as a result of the seizure. PT evaluated. (3) Fever: Status: Resolved Asessment and Plan: Patient had a negative CXR and a negative UA. I suspect that procalcitonin of 0.3 could have been caused by a seizure. Doubt meningitis given clinical presentation. Fever could also have been post-ictal. Blood cultures were empirically obtained and were subsequently negative. (4) H/O non-insulin dependent diabetes mellitus: Asessment and Plan: No medications. (5) CAD (coronary artery disease): Asessment and Plan: Continued on clopidogrel, atorvastatin, metoprolol. (6) Dementia: Asessment and Plan: Continued on memantine and donepezil. (7) Proctitis: Status: Resolved Asessment and Plan: Seen on CT. The patient reports no symptoms, and I wonder if the findings are not related to clinical illness or represent a stercoral colitis. Bowel regimen is written. NO role for abx Discharge Plan Disposition Patient Disposition: Home W/Home Health Services Condition: Improving Discharge Details Reason For Visit: Breakthrough Seizures Admit Date/Time: 06/02/22 21:58 Admit Provider: Radha Herron Attending Provider: Radha Herron Primary Care Provider: Jordon Padron Hospital Course Hospital Course: Mr Mortensen is an 86 year old male with PMHx of a seizure disorder (follows with [facility]), as well as h/o CAD s/p FL, HTN, hyperlipidemia, non-insulin dependent diabetes mellitus, dementia with behavioral disturbance, depression, who had two witnessed seizures in bed early today (1:30 am and 5 am). Reportedly, after this he was febrile to 101 at home, but not in our ER. The patient was previously on a combination of depakote 500 mg PO BID and lamotrigine, but lamotrigine was stopped 1 month ago. The patient was treated in our ER with depakote and lamotrigine. Per ER provider, the patient was still quite somnolent. [facility] neurology recommended addition of lacosamide to depakote rather than continuing? lamictal.? Previously, the patient? had issues with keppra (behavioral changes?). Checking depakote level was recommended. If the level comes back low, neurology at [facility] would like to be notified so that the dose of depakote could be adjusted. Hospitalist admission was requested. On hospitalists interview with the patient, he reports a kink in the neck and a headache. He states he is also slightly short of breath. Lights were not bothering him, nor were the sounds. See Diagnosis PCP follow up in 1-2 weeks. Home Meds and New Rx's Prescriptions: Continued citalopram 10 mg tablet 20 mg PO DAILY therapeutic multivitamin Tablet 1 tab PO DAILY donepezil 10 mg tablet 10 mg PO DAILY divalproex 500 mg tablet extended release 24 hr 500 mg PO BID metoprolol succinate 25 mg tablet extended release 24 hr 25 mg PO DAILY melatonin 10 mg Tablet,Disintegrating 15 mg PO HS PRN Rx Instructions: take one and one half tablets = 15mg at bedtime tamsulosin 0.4 mg Capsule 0.4 mg PO DAILY memantine 5 mg tablet 5 mg PO QHS Patient Comments: TAKE 1 TABLET BY MOUTH NIGHTLY lacosamide 100 mg Tablet 100 mg PO BID clopidogrel [Plavix] 75 MG tablet 75 mg PO DAILY acetaminophen [Mapap Extra Strength] 500 MG tablet 1,000 mg PO BID PRN pantoprazole 40 MG tablet,delayed release (DR/EC) 40 mg PO DAILY nitroglycerin [Nitrostat] 0.4 MG tablet, sublingual 0.4 mg Sublingual Q5 MIN PRN X3 PRN albuterol sulfate [Proventil HFA] 6.7 GM HFA aerosol inhaler 2 puff Inhalation Q4H PRN PRN aspirin 81 mg Tablet,Delayed Release (Dr/Ec) 81 mg PO DAILY atorvastatin [Lipitor] 40 mg Tablet 40 mg PO DAILY No Action lacosamide 100 mg tablet 100 mg PO BID Qty: 60 0RF Discharge Instructions Instructions: Divalproex (By mouth), Lacosamide (By mouth), Nonepileptic Seizures (GEN) Referrals: Jordon Padron [Primary Care Provider] - 06/17/22 4:00 pm (Please arrive at 3:45 pm for an appointment at 4:00) Activity:: Activity as Tolerated Equipment/Supplies:: No Equipment Needed Diet:: Diabetic/heart healthy Discharge Orders Discharge Orders: Discharge Order (Routine); Ordered 06/04/22 Ordered By: Wagner Grider Discharge Data Discharge Date/Time-TO BE ENTERED AT DEPARTURE: 06/04/22 15:50 Discharge Comment: Per Supervisor [employer], refused Home Health Service DS: Summary Time Spent with Patient providing and/or coordinating discharge services: Greater than 30 minutes Status at Discharge Functional status at discharge: uses cane/walker Overall status at discharge: patient is progressing back to baseline Mental Status: other (known dementia) Speech and Movement: speech clear Mood: other (known dementia) Affect: blunted Exam Narrative Exam Narrative: Dimitrios is sleeping / wakens. He is oriented to person place time and circumstance. Lungs are clear to auscultation Heart is regular rate and rhythm Neuro exam reveals no focal motor deficits of his upper or lower extremities no facial asymmetry no dysarthric speech. Exts: No edema. Psych Mental Status: other (known dementia) Speech and Movement: speech clear Mood: other (known dementia) Affect: blunted DS: Data Vitals/I&O Vitals and I&O: Vital Signs Temperature 36.3 C L 06/04/22 09:00 Temperature Source Temporal Artery Scan 06/04/22 09:00 Pulse 65 06/04/22 09:00 Pulse 59 L 06/04/22 09:00 Respiratory Rate 15 06/04/22 09:00 Respiratory Effort Normal 06/04/22 09:00 Respiratory Depth Normal 06/04/22 09:00 Respiratory Pattern Normal 06/04/22 09:00 Blood Pressure 175/72 H 06/04/22 08:01 Blood Pressure Mean 98 06/04/22 08:01 Blood Pressure Position Supine 06/04/22 09:00 Pulse Oximetry 94 06/04/22 09:00 Oxygen Delivery Method Room Air 06/04/22 09:00 Oxygen Flow Rate 0 06/04/22 09:00 Pain Level 0 06/04/22 09:00 Comment RN notified 06/04/22 00:15 Intake & Output 06/03/22 06/04/22 06/04/22 23:59 11:59 23:59 Intake Total 1310 / 1850 280 / 280 Output Total 1725 / 3100 1400 / 1400 Balance -415 / -1250 -1120 / -1120 Weight 60.1 kg Intake: IV 830 / 1010 40 / 40 Oral 480 / 840 240 / 240 Output: Urine 1725 / 3100 1400 / 1400 Other: Urine Color Yellow Yellow Urine Appearance Clear Clear Urine Odor None Normal Stool Size Large Stool Characteristics Soft Brown Voiding Methods Urinal Urinal Data Completed and Pending Labs on day of discharge: Labs from last 24 hours 06/04/22 06/04/22 05:18 05:18 WBC 3.69 L RBC 4.48 Hgb 13.9 Hct 40.4 MCV 90 MCH 31.0 MCHC 34.4 RDW 14.1 Plt Count 127 L MPV 9.5 Immature Gran % 1.4 Neutrophils % 39.0 Lymphocytes % 26.6 Monocytes % 23.3 Eosinophils % 9.2 Basophils % 0.5 Nucleated RBC % 0.0 Absolute Neutrophils 1.44 Absolute Lymphocytes 0.98 L Absolute Monocytes 0.86 H Absolute Eosinophils 0.34 Absolute Basophils 0.02 Sodium 135 L Potassium 4.0 Chloride 101 Carbon Dioxide 28.0 Anion Gap 6.0 BUN 17 Creatinine 1.0 Est GFR (CKD-EPI 2020) 73.76 Glucose 89 Calcium 8.6 Total Bilirubin 0.6 AST 35 ALT 29 Alkaline Phosphatase 66 C-Reactive Protein 0.54 H Total Protein 5.7 L Albumin 3.0 L Preliminary micro results at discharge 06/02/22 15:18 Blood Culture - Preliminary Blood NO GROWTH 24 HOURS 06/02/22 14:05 Blood Culture - Preliminary Blood NO GROWTH 24 HOURS PFSH All Active Problems (Updated 06/05/22 @ 00:01 by SWETA GARCIA) Breakthrough seizure (Acute) COVID-19 (Acute) Generalized weakness (Acute) Rib fractures (Acute) Medical History CAD (coronary artery disease) Dementia H/O non-insulin dependent diabetes mellitus HTN (hypertension) Hx of hyperlipidemia Kidney stones Lung cancer Myocardial infarction Seizure Seizure disorder UTI (urinary tract infection) Surgical History History of coronary artery stent placement History of tonsillectomy Family History Maternal Grandfather Leukemia Social History Smoking/Tobacco Use Status: Never Smoking risk assessment performed?: Yes Alcohol Intake: never Substance use type: does not use Do you feel safe at home: Yes Do you feel safe in your relationship?: Yes Time Spent with Patient Time Spent with Patient: 45-69 minutes Time was spent: preparing to see the patient(eg.review tests), referring, communicating with other health director of health care marketing, indepentently interpreting results and care coordination
--- NOTE | 2022-06-04 14:13 | CMDISCH_ITS ---
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 Visits: 2 - Answers: Total Score: 12 Risk of Readmission: High Risk Care Management Discharge Reason for Hospitalization: Breakthrough seizure Discharge Plan: Dimitrios is discharged home via private vehicle with Aletha. He will follow up with community providers and discharge plan of care as prescribed. No new [facility] services are ordered, per pt and wifes request. [facility] referral is made prior to discharge. Patient/Family Education Needs: Review discharge instructions, limitations and plan to follow up with community providers. Discuss ask me three and goals of self care.
--- NOTE | 2022-06-14 13:14 | PT.INDS ---
Date of service: 06/04/22 Time of Service: 10:38 PT Notes Visit Reasons: Breakthrough Seizures Physical Therapy Inpatient Discharge Summary Date: 06/04/2022 Dates of service: 06/03/2022 and 06/04/2022 Referring Doctor:? Radha Herron MD PT Orders: PT CONSULT: Limited ability Precautions: Fall. Standard. Activity as tolerated. Seizure precautions.? Patient Profile/Admitting Diagnosis:? Dimitrios is a 89-year-old male who presented to the ED on 06/02/20202022 due to seizures and fever along with report of kink in the neck and headache.? Patient is admitted for management of seizures, neck pain, fever, CAD, dementia, and proctitis. PMHX: All Active Problems?(Updated 06/03/22 @ 01:16 by Radha Herron MD) Neck pain (Acute) Proctitis (Acute) Discharge planning issues (Acute) DVT prophylaxis (Acute) Fever (Acute) Breakthrough seizure (Acute) COVID-19 (Acute) Generalized weakness (Acute) Rib fractures (Acute) Seizure (Acute) Medical History?(Updated 06/03/22 @ 01:16 by Radha Herron MD) CAD (coronary artery disease) Dementia H/O non-insulin dependent diabetes mellitus HTN (hypertension) Hx of hyperlipidemia Kidney stones Lung cancer Myocardial infarction Seizure disorder UTI (urinary tract infection) Surgical History? History of coronary artery stent placement History of tonsillectomy Social History/Home Situation: Lives with in a private home. Uses SPC occasionally. Equipment Owned/DME: SPC Subjective: Agreeable to session. Denies headache, chest pain, and lightheadedness throughout.? No report of neck pain. Objective: General Observation: Supine in bed.? Telemetry monitoring in place.? IV access in R UE.? Mental Status: Alert and oriented as to person, place, time, and purpose. Able to pay attention, focus, and respond appropriately. Pain: Denies Vital Signs: VS WNL as closely monitored via tele ROM: Right Upper Extremity: ? Shoulder Flexion WFL. Shoulder abduction WFL. Elbow flexion WFL. Wrist flexion WFL. Functional opening and closing of hand WFL. Left Upper Extremity:? Shoulder Flexion WFL. Shoulder abduction WFL. Elbow flexion WFL. Wrist flexion WFL. Functional opening and closing of hand WFL. Right Lower Extremity: Hip flexion WFL. Hip abduction WFL. Knee flexion WFL. Ankle dorsiflexion WFL. Ankle plantarflexion WFL. Left Lower Extremity: Hip flexion WFL. Hip abduction WFL. Knee flexion WFL. Ankle dorsiflexion WFL. Ankle plantarflexion WFL. Strength: Right Upper Extremity: Shoulder flexors 4-/5. Shoulder abductors 4-/5. Elbow flexors 4-/5. Elbow extensors 4-/5. Seaman Officer strong. Left Upper Extremity: Shoulder flexors 4-/5. Shoulder abductors 4-/5. Elbow flexors 4-/5. Elbow extensors 4-/5. Seaman Officer strong. Right Lower Extremity: Hip flexors 4-/5. Hip abductors 4-/5. Knee flexors 4-/5. Knee extensors 4-/5. Ankle dorsiflexors 4-/5. Ankle plantarflexors 4-/5. Left Lower Extremity: Hip flexors 4-/5. Hip abductors 4-/5. Knee flexors 4-/5. Knee extensors 4-/5. Ankle dorsiflexors 4-/5. Ankle plantarflexors 4-/5. Bed Mobility/Transfers: Supine to sit contact guard assist Sit to supine contact guard assist Sit to stand contact guard assist with FWW Stand to sit contact guard assist with FWW Bed to reclining chair contact guard assist with FWW Reclining chair to bed contact guard assist with FWW Gait: Instructed patient with level surface ambulation of 5 feet + 15 feet requiring contact guard assist. Maite decreased.? Step height decreased. Step length decreased. Balance: Static Sitting: Normal Dynamic Sitting: Good Static Standing: Fair Dynamic Standing: Fair Assessment: Activity tolerance poor,? needs frequent rests.? Has family who can be avilable to help as needed.? Patient presents with clinical signs and symptoms consistent with current/admitting diagnoses that have resulted to mobility limitations, gait instability, generalized weakness, and overall ADL decline as demonstrated by the following impairment level findings: 1.? Decreased strength to B UE/LE major muscle groups 2.? Impaired sitting/standing balance 3.? Impaired activity tolerance 5.? Minimal shortness of breath Impairments are contributing to the following functional limitations: 1.? Decline in bed mobility skills 2.? Decline in transfer skills 3.? Difficulty with ambulation without assistive device and physical assistance 4.? Increased completion time for mobility ADL performance 5.? Increased risk for falls 6.? Difficulty with managing steps alone safely Goals: Goals X1 week 1. Supine-Sit independent NOT MET 2. Sit-Supine independent NOT MET 3. Sit-Stand independent NOT MET 4. Stand-Sit independent with SPC NOT MET 5. Bed-Chair independent with SPC NOT MET 6. Chair-Bed independent with SPC NOT MET 7. Independent gait on level surface with use of SPC for at least 300 feet without report of pain nor dyspnea NOT MET 8. Independent stair negotiation while holding onto B rails for at least 3 steps without report of pain nor dyspnea NOT MET 9. Independent with home exercise program NOT MET 10. Good static and dynamic standing balance/tolerance NOT MET DISCHARGE RECOMMENDATIONS: [] ? Home with no services [] [X] ? Home with service.? ? Patient will benefit from home health PT services in order to progress mobility level using least restrictive assistive ambulatory device, assess home safety, identify additional equipment needs, and establish a functional maintenance program that will increase ability of patient to remain at home. [] ? Home with outpatient PT [] [] ? SNF for continued rehabilitation [] [] ? Hotel Receptionist Care [] [] ? SNF versus LTC based on ability to participate and progress [] TREATMENT CODE/TIME: 32421 x 20 minutes beginning at 10:38 AM. Thank you for the opportunity to participate in the care of this patient. Marly Esposito PT, DPT, CLT [facility] [place], [place]
== END 2022-06-04 15:50 | disposition home health service (06) | DRG 101 ==
LOC: ER 06-03 01:54 → ICU 06-03 02:08
PROVIDERS: Internal Medicine; Physician Assistant; Admitting Provider Internal Medicine; Emergency Provider Registered Nurse Emergency; PCP Family Medicine; Visit Provider Internal Medicine
DX: G40.909 Epilepsy, unspecified, not intractable, without status epilepticus; F03.918 Unspecified dementia, unspecified severity, with other behavioral disturbance; C34.90 Malignant neoplasm of unspecified part of unspecified bronchus or lung; M54.2 Cervicalgia; R53.1 Weakness; I25.10 Atherosclerotic heart disease of native coronary artery without angina pectoris; E11.9 Type 2 diabetes mellitus without complications; I10 Essential (primary) hypertension; Z95.5 Presence of coronary angioplasty implant and graft; I25.2 Old myocardial infarction; E78.5 Hyperlipidemia, unspecified; R50.9 Fever, unspecified; K62.89 Other specified diseases of anus and rectum; Z66 Do not resuscitate; F32.A Depression, unspecified
CPT/HCPCS: 36410; 36415; 36416; 80048; 80053; 80076; 82550; 82962; 84145; 87040; 87637; 93005; 95816; 96361; 96374; 97162; 97530; 99285; 70450; 71046; 72050; 73030; 74177; 80164; 81003; 81015; 83036; 83605; 83735; 84443; 85025; 86140; 93010; 99223; 99239; 99291; J0131; J1644; J3490

== ENCOUNTER → 2022-06-03 08:12 | Outpatient (BNVA) | payer MEDICARE, SELFPAY | PROVIDERS: PCP Family Medicine; Referring Provider Family Medicine; Visit Provider Psychiatry & Neurology Neurology ==

== ENCOUNTER 2022-08-29 13:58 | Inpatient (IN) | payer MEDICARE, SELFPAY ==
[2022-08-29] VITALS (105 sets, daily range): BP systolic 71–127; BP diastolic 33–85; PULSE 51–90; RESP 12–32; TEMP 36.8–37.1; O2SAT 90–97
--- NOTE | 2022-08-29 14:00 | RT.EKG_ITS ---
APPROVED REPORT Exam: Resting ECG Reason for Exam: Post sez Patient Location: E HR:83 bpm ECG Measurements Heart Rate 83 AXIS DE 158 P 48 QRSd 99 QRS -51 QT 374 T 30 QTc 427 Conclusion Sinus rhythm...normal P axis, V-rate 60- 99 Ventricular premature complex...V complex w/ short R-R interval Left anterior fascicular block...axis(240,-40), init forces inf Anteroseptal infarct, old...Q >40mS, V1-V2 Narrow complex normal sinus rhythm at a rate of 83. Left axis deviation. No signs of LVH based on v oltage criteria. Mild upsloping new ST segment elevation in V2. Persistent ST segment depression in lead II and ST segment flattening in aVF compared to prior. Prior dated earlier this year. No acut e injury pattern.
--- NOTE | 2022-08-29 14:00 | DI.RAD_ITS ---
Exam(s) XR PORTABLE CHEST AP EXAM: XR PORTABLE CHEST AP CLINICAL HISTORY: cough. TECHNIQUE: 2D digital imaging was performed. COMPARISON: CR XR PORTABLE CHEST AP from 11/26/2021 CR XR CHEST 2V PA LATERAL from 06/02/2022 FINDINGS: Single AP portable view. Heart size is upper normal. The mediastinum is unchanged. Probable widened ascending thoracic aorta . There relatively symmetrical increased vascular markings in both lung mathis consistent with pulmonar y venous hypertension. There are no obvious Scotty B lines. No pleural effusions. No pneumothorax. Calcific tendinitis left shoulder noted. IMPRESSION: Probable pulmonary edema despite relatively normal heart size.. No obvious pleural effusions. Recom mend nonportable PA and lateral views when clinically possible. DATA REPOSITORY: RADIATION DOSE DELIVERED:
--- NOTE | 2022-08-29 14:15 | DI.CT_ITS ---
Exam(s) CT HEAD WO EXAM: CT HEAD WO CLINICAL HISTORY: headache seizure. TECHNIQUE: Imaging Protocol: Axial computed tomography images with coronal and sagittal reformatted images were created and reviewed COMPARISON: CT CT HEAD WO from 06/02/2022 FINDINGS: There are no skull fractures. There is no fluid in the visualized paranasal sinuses. There is no evidence of intracranial hemorrhage, mass effect, or shift of midline structures. There are no extra-axial fluid collections. The ventricles are not enlarged or shifted and there is no blo od within the ventricular system nor within the basal cisterns. Mild bilateral periventricular hypodensity consistent with chronic small vessel disease. No evidence of acute infarct. IMPRESSION: No acute intracranial findings on this noninfused CT scan of the brain. RADIATION DOSE DELIVERED: 814.95mGy.cm Total DLP DATA REPOSITORY: All CT scans at this facility are submitted to the National Radiology Data Registry (NRDR) Dose Index Registry (DIR) with the [employer] (A[employer]). RADIATION OPTIMIZATION: All CT scans at this facility use at least one of these dose optimization te chniques: automated exposure control; mA and/or kV adjustment per patient size (includes targeted exa ms where dose is matched to clinical indication); or iterative reconstruction.
[2022-08-29] MEDS: Normal Saline 500 ML IV ×4 (14:26→18:11)
[2022-08-29 14:27] LABS: Abs Immature Grans 0.19 10^3/uL (0.0-0.06); HCT 44.6 % (40.0-50.0); HGB 15.1 g/dL (13.5-17.5); MCH 31.5 pg (27.0-33.0); MCHC 33.9 % (32.0-36.0); MCV 93 fL (80-95); MPV 10.1 fL (8.0-11.0); Platelet Count 163 10^3/uL (130-400); RBC 4.79 10^6/uL (4.36-5.78); RDW 13.6 % (11.8-14.1); RDW-SD 46.2 fL; WBC 17.68 10^3/uL (4.4-10.8)
[2022-08-29 14:41] LABS: Absolute Lymphocyte Count 1.94 10^3/uL (1.2-3.4); Absolute Monocyte Count 2.65 10^3/uL (0.1-0.8); Absolute Neutrophil Count 13.08 10^3/uL (1.2-6.7); Bands % 11; VALPROIC ACID 61.7 ug/mL
[2022-08-29 14:42] LABS: Diff Comment Manual Differential; RBC Morphology Normal
--- NOTE | 2022-08-29 14:48 | ED.GENADUL_ITS ---
Discharge Plan Discharge Details Chief Complaint: GenMedical Primary Care Provider: Jordon Padron ED Provider: Rupert Guadalupe Home Meds and New Rx's Prescriptions: No Action citalopram 10 mg tablet 20 mg PO DAILY therapeutic multivitamin Tablet 1 tab PO DAILY donepezil 10 mg tablet 10 mg PO DAILY divalproex 500 mg tablet extended release 24 hr 500 mg PO BID metoprolol succinate 25 mg tablet extended release 24 hr 25 mg PO DAILY melatonin 10 mg Tablet,Disintegrating 15 mg PO HS PRN Rx Instructions: take one and one half tablets = 15mg at bedtime tamsulosin 0.4 mg Capsule 0.4 mg PO DAILY memantine 5 mg tablet 5 mg PO QHS Patient Comments: TAKE 1 TABLET BY MOUTH NIGHTLY ketoconazole 2 % cream 1 applic TOPICAL BID Patient Comments: APPLY CREAM TOPICALLY TO THE RASH ON THE SCALP AND AROUND HAIRLINE TWICE DAILY NEEDED Combivent Respimat 20-100 mcg/actuation Mist 1 puff INHALATION Q6H Юлия-Talbott Plus Cold-Flu 12.5-10-20-650 mg Powder In Packet 1 packet PO PRN PRN clopidogrel [Plavix] 75 MG tablet 75 mg PO DAILY acetaminophen [Mapap Extra Strength] 500 MG tablet 1,000 mg PO BID PRN pantoprazole 40 MG tablet,delayed release (DR/EC) 40 mg PO DAILY nitroglycerin [Nitrostat] 0.4 MG tablet, sublingual 0.4 mg Sublingual Q5 MIN PRN X3 PRN albuterol sulfate [Proventil HFA] 6.7 GM HFA aerosol inhaler 2 puff Inhalation Q4H PRN PRN aspirin 81 mg Tablet,Delayed Release (Dr/Ec) 81 mg PO DAILY atorvastatin [Lipitor] 40 mg Tablet 40 mg PO DAILY lacosamide 100 mg tablet 100 mg PO BID Qty: 60 0RF Medical Decision Making Patient presenting the emergency department for chief complaint of seizure-like activity and not feeling well today. Significant other states that patient had a breakthrough seizure yesterday evening which was a typical seizure for him. When patient woke up then today patient was calm still complaining of headache and had a little bit more malaise than normal. Patient's only complaint is a headache and he states no other symptoms. Patient has significant past medical history of coronary artery disease, dementia, hypertension, lung cancer and seizure disorder. Patient is on Depakote for seizures and significant other states that she has been giving him his medications. She is does state over the last month patient has had cough and nasal congestion and over the past couple days has had a fever. Physical exam is unremarkable and shows clear lung sounds, normal cranial nerve exam, slight tremor with movement only otherwise no focal neurological findings. We will plan on checking head CT, labs, EKG and Depakote level. Pending results will give IV acetaminophen for headache Please see physician interpretation for full interpretation of EKG but upon speaking and reviewing EKG with physician there is some noted ST changes that are not consistent with STEMI but are concerning. We will add a troponin level to testing. Reviewed patient's labs and CBC does show significant elevation of WBCs at 17.68, neutrophils at 13.8 and monocytes high at 2.65. CMP does show slight elevation of anion gap 11.9, BUN of 24, creatinine of 1.4 reviewed patient's previous labs and this does seem to be a significant drop in patient's kidney function. We will give a 500 mL fluid bolus pending other results. Still pending head CT did review radiological imaging and radiologist interpretation that does show some signs of pulmonary edema. But radiologist did state would be better evaluated with PA lateral. Patient signed out pending completion of head CT and further labs for question of infection versus cardiac cause of breakthrough seizure. Imaging Data Radiologic Study: Imaging: X-Ray Radiologist's impression: Exam(s) XR PORTABLE CHEST AP EXAM: XR PORTABLE CHEST AP CLINICAL HISTORY: cough. TECHNIQUE: 2D digital imaging was performed. COMPARISON: CR XR PORTABLE CHEST AP from 11/26/2021 CR XR CHEST 2V PA LATERAL from 06/02/2022 FINDINGS: Single AP portable view. Heart size is upper normal. The mediastinum is unchanged. Probable widened ascending thoracic aorta. There relatively symmetrical increased vascular markings in both lung mathis consistent with pulmonary venous hypertension. There are no obvious Scotty B lines. No pleural effusions. No pneumothorax. Calcific tendinitis left shoulder noted. IMPRESSION: Probable pulmonary edema despite relatively normal heart size.. No obvious pleural effusions. Recommend nonportable PA and lateral views when clinically possible. HPI General Mode of arrival: ambulatory . Date/Time Provider Initiated Documentation: 08/29/22 14:00 . Limitations to Documentation: no limitations . Information obtained by: patient and RN notes reviewed . History of Present Illness 87 year old M presents to the emergency department with the chief complaint of Seizure, headache, described as moderate and similar to prior episodes, and is localized to the head. Patient reports no radiation. Patient started experiencing this day(s) (1) and it has been constant. No relieving factors improve symptom(s), No exacerbating factors reported . Patient notes cough, fever/chills and malaise. Patient did receive the following treatments prior to arrival, none Related Data Home Medications Medication Instructions Recorded Confirmed acetaminophen 500 mg tablet (Mapap 1,000 mg PO BID PRN 04/27/16 08/29/22 Extra Strength) albuterol sulfate 90 mcg/actuation 2 puff inhalation Q4H PRN PRN 04/27/16 08/29/22 aerosol inhaler (Proventil HFA) clopidogrel 75 mg tablet (Plavix) 75 mg PO DAILY 04/27/16 08/29/22 nitroglycerin 0.4 mg sublingual 0.4 mg sublingual Q5 MIN PRN X3 PRN 04/27/16 08/29/22 tablet (Nitrostat) pantoprazole 40 mg tablet,delayed 40 mg PO DAILY 04/27/16 08/29/22 release aspirin 81 mg tablet,delayed 81 mg PO DAILY 12/18/19 08/29/22 release atorvastatin 40 mg tablet (Lipitor) 40 mg PO DAILY 12/18/19 08/29/22 citalopram 10 mg tablet 20 mg PO DAILY 02/20/21 08/29/22 therapeutic multivitamin 1 tab PO DAILY 02/20/21 08/29/22 divalproex 500 mg tablet,extended 500 mg PO BID 11/26/21 08/29/22 release 24 hr donepezil 10 mg tablet 10 mg PO DAILY 11/26/21 08/29/22 melatonin 10 mg disintegrating 15 mg PO HS PRN 11/26/21 08/29/22 tablet metoprolol succinate 25 mg 25 mg PO DAILY 11/26/21 08/29/22 tablet,extended release 24 hr tamsulosin 0.4 mg capsule 0.4 mg PO DAILY 11/26/21 08/29/22 memantine 5 mg tablet 5 mg PO QHS 06/02/22 08/29/22 lacosamide 100 mg tablet 100 mg PO BID #60 tabs 06/04/22 08/29/22 doxylamin 12.5 mg-PSE 10 mg-DM 20 1 packet PO PRN PRN 08/29/22 08/29/22 mg-acetaminophen 650 mg oral pwdr pk (Юлия-Talbott Plus Cold-Flu) ipratropium 20 mcg-albuterol 100 1 puff inhalation Q6H 08/29/22 08/29/22 mcg/actuation mist for inhalation (Combivent Respimat) ketoconazole 2 % topical cream 1 applic topical BID 08/29/22 08/29/22 Previous Rx's Medication Instructions Recorded lacosamide 100 mg tablet 100 mg PO BID #60 tabs 06/04/22 Allergies Allergy/AdvReac Type Severity Reaction Status Date / Time oxycodone [From Percocet] AdvReac Unverified 08/29/22 14:10 Penicillins AdvReac Unverified 08/29/22 14:10 General Stated Complaint: GenMedical FORD: 3 Review of Systems Constitutional Constitutional: Reports chills, Reports fever(s), Reports headache(s) and Reports malaise Eyes Eyes: Reports change in vision ENT Ears, Nose, Mouth, and Throat: Reports headache(s), Reports nasal congestion, Denies neck pain and Denies sore throat Cardiovascular Cardiovascular: Denies chest pain, Denies lightheadedness and Denies dyspnea Respiratory Respiratory: Denies dyspnea Gastrointestinal Gastrointestinal: Denies abdominal pain, Denies diarrhea and Denies nausea Genitourinary Genitourinary: Denies dysuria Musculoskeletal Musculoskeletal: Denies neck pain and Denies tingling Integumentary/Breasts Skin/Breast: Denies rash Neurologic Neurologic: Reports as per HPI, Reports confusion, Reports headache(s), Reports seizure-like activity, Denies sensory deficit, Denies tingling and Reports tremor(s) (At baseline) Psychiatric Psychiatric: Reports confusion PFSH All Active Problems Breakthrough seizure (Acute) COVID-19 (Acute) Generalized weakness (Acute) Rib fractures (Acute) Medical History CAD (coronary artery disease) Dementia H/O non-insulin dependent diabetes mellitus HTN (hypertension) Hx of hyperlipidemia Kidney stones Lung cancer Myocardial infarction Seizure Seizure disorder UTI (urinary tract infection) Surgical History History of coronary artery stent placement History of tonsillectomy Family History Maternal Grandfather Leukemia Social History Smoking/Tobacco Use Status: Never Smoking risk assessment performed?: Yes Alcohol Intake: never Substance use type: does not use Do you feel safe at home: Yes Do you feel safe in your relationship?: Yes Exam Const General: cooperative, no acute distress and well groomed Orientation: alert and awake HENMT Head: normal to inspection Ears: hearing grossly normal bilaterally and TM's normal bilaterally Mouth: oral mucosae normal and moist mucous membranes Throat: posterior oropharynx normal Eyes Visual Mathis: normal visual mathis by confrontation Alignment and Position: alignment normal Periorbital: periorbital findings normal Eyelids: eyelids normal Sclera: sclerae normal Pupils: PERRL EOM: EOM intact bilaterally Neck Neck: normal visual inspection, full ROM, no lymphadenopathy and no meningeal signs Resp Effort & Inspection: normal respiratory effort and able to speak in complete sentences Auscultation: clear to auscultation bilaterally Cardio Rate: regular rate Rhythm: regular rhythm Heart Sounds: S1 normal and S2 normal Neuro General: patient alert, patient awake, gait normal, tone normal, moves all extremities and CN's II-XI intact bilaterally Cognition: normal cognition Speech: speech normal Motor: muscle tone normal throughout and no pronator drift Sensory Exam: no sensory deficits noted Coordination: Does not sway with eyes open Course Vital Signs Vital signs: Vital Signs Temperature 37.1 C 08/29/22 14:04 Pulse 72 08/29/22 14:04 Respiratory Rate 16 08/29/22 14:04 Blood Pressure 113/46 L 08/29/22 14:04 Pulse Oximetry 92 08/29/22 14:04 Temperature 37.1 C 08/29/22 14:04 Temperature Source Oral 08/29/22 14:04 Pulse 72 08/29/22 14:04 Respiratory Rate 16 08/29/22 14:04 Respiratory Effort Normal 08/29/22 14:16 Blood Pressure 113/46 L 08/29/22 14:04 Pulse Oximetry 92 08/29/22 14:04 Oxygen Delivery Method Room Air 08/29/22 14:04 Oxygen Flow Rate 0 08/29/22 14:04 Pain Level 0 08/29/22 14:04 Lab/Test Results Lab/Test Results: Laboratory Tests Range/Units 08/29/22 08/29/22 14:23 14:23 WBC (4.4-10.8) 10^3/uL 17.68 H RBC (4.36-5.78) 10^6/uL 4.79 Hgb (13.5-17.5) g/dL 15.1 Hct (40.0-50.0) % 44.6 MCV (80-95) fL 93 MCH (27.0-33.0) pg 31.5 MCHC (32.0-36.0) % 33.9 RDW (11.8-14.1) % 13.6 Plt Count (130-400) 10^3/uL 163 MPV (8.0-11.0) fL 10.1 Immature Gran % 0.0 Neutrophils % 63.0 Band Neutrophils % 11 Lymphocytes % 11.0 Monocytes % 15.0 Eosinophils % 0.0 Basophils % 0.0 Nucleated RBC % (0.0-0.3) % 0.0 Absolute Neutrophils (1.2-6.7) 10^3/uL 13.08 H Absolute Lymphocytes (1.2-3.4) 10^3/uL 1.94 Absolute Monocytes (0.1-0.8) 10^3/uL 2.65 H Absolute Eosinophils (0.0-0.7) 10^3/uL 0.00 Absolute Basophils (0.0-0.2) 10^3/uL 0.00 RBC Morphology Normal Valproic Acid ( - 150) ug/mL 61.7 Sign Out Sign Out Data: Sign Out Comment: Patient signed out pending completion of evaluation and disposition. Pending CT scan and some additional labs. Patient concern for seizure event that may be from either cardiac nature given EKG changes and p ulmonary edema versus infection. Last updated by Rupert Guadalupe NP at 08/29/22 15:34
[2022-08-29 14:50] LABS: ALT 20 U/L (16-63); AST 22 U/L (15-37); Albumin 3.3 g/dL (3.4-5.0); Alkaline Phosphatase 66 U/L (46-116); Anion Gap 11.9 mmol/L (3-11); BUN 24 mg/dL (7-18); Bilirubin, Total 0.9 mg/dL (0.2-1.0); CO2 27.1 mmol/L (21.0-32.0); CREATININE 1.4 mg/dL (0.70-1.30); Calcium 8.9 mg/dL (8.5-10.1); Chloride 105 mmol/L (98-107); Estimated GFR 48.95 (mL/min/1.73m2); Glucose 112 mg/dL (74-106); Magnesium 1.8 mg/dL (1.8-2.4); Potassium 5.1 mmol/L (3.5-5.1); Sodium 144 mmol/L (136-145); TSH (W/Ref FT4) 2.86 uIU/mL (0.36-3.74); Total Protein 6.7 g/dL (6.4-8.2)
--- NOTE | 2022-08-29 15:15 | DI.VRAD_ITS ---
PROCEDURE INFORMATION: Exam: XR Chest Exam date and time: 08/29/2022 2:24 PM Age: 87 years old Clinical indication: Other: Cough TECHNIQUE: Imaging protocol: Radiologic exam of the chest. Views: 1 view. Other technique: Portable exam. COMPARISON: CR XR CHEST 2V PA LATERAL 06/02/2022 4:10 PM FINDINGS: Lungs: There are some patchy, mild coarse interstitial changes noted in the lungs increased in conspicuity compared to previous study. This could represent infectious or inflammatory process. Early congestive heart failure not excludable. No focal consolidation. Pleural spaces: Unremarkable. No pleural effusion. No pneumothorax. Heart/Mediastinum: Unremarkable. No cardiomegaly. Bones/joints: Unremarkable. IMPRESSION: Possible infectious or inflammatory process versus congestive heart failure. Follow-up to assess clearing recommended. Dictated and Authenticated by: May Robert MD. Ordering:GERRI Emery MD
[2022-08-29 15:24] LABS: NT-proBNP 5754 pg/mL (<300)
--- NOTE | 2022-08-29 15:45 | DI.CT_ITS ---
Exam(s) CT CHEST/ABD/PEL W EXAM: CT CHEST/ABD/PEL W CLINICAL HISTORY: cough, fever, seizures, ams. TECHNIQUE: Imaging Protocol: Axial computed tomography images with coronal and sagittal reformatted images were created and reviewed CONTRAST MATERIAL: Intravenous: Omnipaque 350 Contrast volume:100 ml Oral: None COMPARISON: CR CHEST 2 VIEWS PA,LAT from 05/25/2010 CR XR CHEST 2V PA LATERAL from 12/18/2019 CR XR CHEST 2V PA LATERAL from 02/20/[address] ABDOMEN PELVIS W from 06/02/2022 FINDINGS: CHEST: LUNGS: There is prominent patchy infiltrate in the right upper lobe. Increased markings in the basal segments of the right lower lobe are unchanged from 05/13/2022. No new findings in the opposite-lef t lung. No pleural effusions on either side MEDIASTINUM: There is no hilar nor mediastinal adenopathy. Visualized thyroid unremarkable. CARDIAC: Heart size is normal. There is no pericardial effusion.Caliber of the thoracic aorta is wit hin normal limits. OSSEOUS: T5 compression fracture which was not evident on lateral chest x-ray of December 2019 but michelet ears to have been present on chest x-ray of February 2021. ABDOMEN: There is no ascites. LIVER: Again noted is a previously described right hepatic lobe hemangioma which measures approximate ly 2.5 x 2.3 cm. No additional focal hepatic findings nor dilatation of intrahepatic ducts. GALLBLADDER/BILIARY: Gallbladder is difficult to assess because of motion artifact but there are no o bvious radiopaque calculi and the gallbladder is not distended nor grossly edematous. CBD is not dil ated. PANCREAS: No evidence of pancreatic mass nor dilatation of the pancreatic duct. SPLEEN: Spleen is not enlarged. There are no intrasplenic lesions. Splenic and portal veins are olmedo nt. ADRENALS: There are no significant adrenal masses. KIDNEYS: Nonobstructive calculi again noted in the right kidney. No hydronephrosis on either side. No calculi in left kidney. Ureters not dilated.. There is uniform thickening of the urinary bladder wall consistent with probable chronic cystitis. There is no gas within the bladder wall. No radiop aque calculi in the bladder lumen. ABDOMINAL AORTA: Calcified but not enlarged. LYMPH NODES: There is no retroperitoneal nor paraaortic adenopathy. ABDOMINAL WALL: No evidence of significant anterior abdominal wall nor inguinal hernia. GI: There is no evidence of bowel obstruction. PELVIS: LYMPH NODES: There is no intrapelvic nor inguinal adenopathy. GI: No evidence of appendicitis.Sigmoid diverticuli but no evidence of obvious acute diverticulitis. URINARY BLADDER: Diffusely thickened bladder wall. REPRODUCTIVE: Prostate size upper normal. Seminal vesicles unremarkable. OSSEOUS: No significant osseous lesions. IMPRESSION: 1. There is prominent patchy infiltrate in the right upper lobe. Consistent with pneumonia. No pleu ral effusions. No obvious intrathoracic adenopathy. 2. T5 compression fracture which was evident on chest x-ray of 02/20/2021 but not on chest x-ray of 1 3. Stable nonobstructive calculi in the right kidney again noted. 4. Diffuse thickening of the urinary bladder wall consistent with chronic cystitis. Prostate gland s ize appears upper normal. No urinary bladder distension or diverticuli evident. No radiopaque calcu li evident in the urinary bladder lumen. 5. Sigmoid diverticulosis with no evidence of acute diverticulitis. First read by [facility]. RADIATION DOSE DELIVERED: 1,047.63mGy.cm Total DLP DATA REPOSITORY: All CT scans at this facility are submitted to the National Radiology Data Registry (NRDR) Dose Index Registry (DIR) with the [employer] ([employer]). RADIATION OPTIMIZATION: All CT scans at this facility use at least one of these dose optimization te chniques: automated exposure control; mA and/or kV adjustment per patient size (includes targeted exa ms where dose is matched to clinical indication); or iterative reconstruction.
[2022-08-29 15:48] LABS: Troponin I < 50 ng/L (<or=60)
[2022-08-29 15:55] LABS: COVID-19 PCR Negative (Negative); Influenza A PCR Negative (Negative); Influenza B PCR Negative (Negative); RSV PCR Negative (Negative)
[2022-08-29 15:59] LABS: Source Nasopharynx
[2022-08-29] MEDS: Omnipaque 350 MG/ML 100 ML BTL IJ (16:05)
[2022-08-29] MEDS: Normal Saline Flush 10 ML SYR IVP ×2 (16:05→17:20)
[2022-08-29] MEDS: Normal Saline - Diluent 50 ML VIAL IJ (16:05)
[2022-08-29 16:06] LABS: Bilirubin Small (Negative); Blood Negative (Negative); Clarity Clear (Clear); Glucose Negative (Negative); Ketones 15 mg/dL (Negative); Leukocyte Esterase Negative (Negative); Nitrite Negative (Negative); Specific Gravity 1.015 (1.005-1.025)
[2022-08-29 16:16] LABS: Bacteria Negative HPF (Negative); C & S Indicated? No; Casts Negative LPF (Negative); Crystals Negative HPF (Negative); Epithelial Cells Rare HPF (Negative); Mucus Negative (Negative); RBC 0-2 HPF (0-2); WBC 0-2 HPF (0-5)
--- NOTE | 2022-08-29 16:27 | DI.VRAD_ITS ---
PROCEDURE INFORMATION: Exam: CT Head Without Contrast Exam date and time: 08/29/2022 4:11 PM Age: 87 years old Clinical indication: Other: Headache seizure TECHNIQUE: Imaging protocol: Computed tomography of the head without contrast. Radiation optimization: All CT scans at this facility use at least one of these dose optimization techniques: automated exposure control; mA and/or kV adjustment per patient size (includes targeted exams where dose is matched to clinical indication); or iterative reconstruction. COMPARISON: CT HEAD WO 06/02/2022 3:59 PM FINDINGS: Brain: Cerebral volume loss noted. Scattered areas of decreased attenuation in the deep periventricular white matter consistent with small vessel ischemic change. No evidence for acute intracranial hemorrhage. Cerebral ventricles: No ventriculomegaly. Paranasal sinuses: Visualized sinuses are unremarkable. No fluid levels. Mastoid air cells: Visualized mastoid air cells are well aerated. Bones/joints: Unremarkable. No acute fracture. Soft tissues: Unremarkable. IMPRESSION: Senescent changes noted. No acute intracranial abnormality. Dictated and Authenticated by: May Robert MD. Ordering:GERRI Emery MD
[2022-08-29] MEDS: DOXYCYCLINE 100 MG in Normal Saline 100 ML IVPB (16:32)
[2022-08-29] MEDS: cefTRIAXone 2 GM/50 ML BAG IVPB (16:35)
--- NOTE | 2022-08-29 17:05 | DI.VRAD_ITS ---
PROCEDURE INFORMATION: Exam: CT Chest With Contrast; Diagnostic Exam date and time: 08/29/2022 4:16 PM Age: 87 years old Clinical indication: Other: Cough, fever, seizures, AMS TECHNIQUE: Imaging protocol: Diagnostic computed tomography of the chest with contrast. 3D rendering (Not supervised by radiologist): MIP and/or 3D reconstructed images were created by the technologist. Radiation optimization: All CT scans at this facility use at least one of these dose optimization techniques: automated exposure control; mA and/or kV adjustment per patient size (includes targeted exams where dose is matched to clinical indication); or iterative reconstruction. Contrast material: OMNI 350; Contrast volume: 100 ml; Contrast route: INTRAVENOUS (IV); COMPARISON: CT THORAX ABD/PEL CTA 02/20/2021 3:23 PM FINDINGS: Lungs: Opacities in the right upper lobe and a right middle lobe and both lower lobes may represent atelectasis or pneumonia.. Pleural spaces: Small right pleural effusion. . Heart: Unremarkable. No cardiomegaly. No pericardial effusion. Lymph nodes: Unremarkable. No enlarged lymph nodes. Vasculature: Unremarkable. No aortic aneurysm. Diaphragm: Small hiatal hernia Bones/joints: Unremarkable. No acute fracture. Soft tissues: Unremarkable. IMPRESSION: 1. Small right pleural effusion. . 2. Opacities in the right upper lobe and a right middle lobe and both lower lobes may represent atelectasis or pneumonia.. PROCEDURE INFORMATION: Exam: CT Abdomen And Pelvis With Contrast Exam date and time: 08/29/2022 4:16 PM Age: 87 years old Clinical indication: Other: Cough, fever, seizures, AMS TECHNIQUE: Imaging protocol: Computed tomography of the abdomen and pelvis with contrast. 3D rendering (Not supervised by radiologist): MIP and/or 3D reconstructed images were created by the technologist. Radiation optimization: All CT scans at this facility use at least one of these dose optimization techniques: automated exposure control; mA and/or kV adjustment per patient size (includes targeted exams where dose is matched to clinical indication); or iterative reconstruction. Contrast material: OMNI 350; Contrast volume: 100 ml; Contrast route: INTRAVENOUS (IV); COMPARISON: CT ABDOMEN PELVIS W 06/02/2022 4:04 PM FINDINGS: Liver: Again noted is of complex partially enhancing mass in the right lobe of the liver. It is stable since May. This may represent hemangioma. Differential includes malignancy. Gallbladder and bile ducts: Normal. No calcified stones. No ductal dilation. Pancreas: Normal. No ductal dilation. Spleen: Normal. No splenomegaly. Adrenal glands: Normal. No mass. Kidneys and ureters: Again noted is a 4 mm distal right ureteral calculus. It is stable in position and was present in May. No significant dilatation of the right collecting system. Nonobstructing right renal calculus Stomach and bowel: Diverticulosis of the rectosigmoid. No chester diverticulitis Appendix: No evidence of appendicitis. Intraperitoneal space: Unremarkable. No free air. No significant fluid collection. Vasculature: Unremarkable. No abdominal aortic aneurysm. Lymph nodes: Unremarkable. No enlarged lymph nodes. Urinary bladder: Anterior bladder wall measures 14-15 mm. This is nonspecific and may represent inflammation or infection. Neoplastic process is included in the differential. Reproductive: Unremarkable as visualized. Bones/joints: Severe compression fracture T5 of unknown age Soft tissues: Unremarkable. IMPRESSION: 1. Again noted is of complex partially enhancing mass in the right lobe of the liver. It is stable since May. This may represent hemangioma. Differential includes malignancy. 2. Again noted is a 4 mm distal right ureteral calculus. It is stable in position and was present in May. No significant dilatation of the right collecting system. 3. Anterior bladder wall measures 14-15 mm. This is nonspecific and may represent inflammation or infection. Neoplastic process is included in the differential. Dictated and Authenticated by: Nancy Peraza MD. Ordering:NAT Kumar MD
[2022-08-29] MEDS: methylPREDNISolone SUCC 125 MG VIAL IVP (17:19)
[2022-08-29] MEDS: CLINDAMYCIN 600 MG/50 ML BAG 100 MG IVPB (17:26)
[2022-08-29] MEDS: Lacosamide 100 MG TAB PO (17:35)
[2022-08-29 17:42] LABS: Procalcitonin 14.8 ng/mL
[2022-08-29] MEDS: Divalproex Sodium 500 MG TAB.ER.24H PO (17:46)
[2022-08-29 17:52] LABS: Troponin I < 50 ng/L (<or=60)
[2022-08-29 19:18] LABS: BE (Venous) -1 mmol/L (-2-3); HCO3 (Venous) 24 mmol/L (23-28); O2 Sat (Venous) 93 %; TCO2 (Venous) 22 mmol/L (24-29); pCO2 (Venous) 38 mmHg (41-51); pO2 (Venous) 66 mmHg
[2022-08-29] MEDS: Lactated Ringers 1,000 ML 125 ML IV (19:31)
--- NOTE | 2022-08-29 20:34 | HPE_ITS ---
Date of service: 08/29/22 Time of Service: 20:35 Assessment and Plan Assessment and plan (1) Acute respiratory failure with hypoxia: Start date: 08/29/22 Status: Acute Assessment and plan: This is a 87-year-old gentleman who presents with increased weakness after a breakthrough seizure which is not uncommon for him. He did having decreased intake and no cough or respiratory distress but was found to be hypoxic with pneumonia on imaging. He was placed on antibiotic therapy to cover for aspiration as well as community-acquired pneumonia which includes doxycycline, clindamycin and Rocephin. He does of a history of COPD and lung findings do suggest slight bronchospasm and he will be given his inhalers along with Solu- Medrol pulse therapy. This can be reassessed in the morning. He is a full code. (2) Sepsis: Start date: 08/29/22 Status: Acute Assessment and plan: Patient assessed as early hypovolemic or hypotensive shock but he responded very well to the IV fluids and this will be continued. At the time he was admitted to the ICU he has stabilized and did meet ICU criteria. He will be changed over to medical care at that time. He did have an elevated WBC with systolic blood pressure below 90 but no tachycardia and no significant fever though he was slightly sweaty on exam.He did have an increased lactic acid and anion gap which will be monitored with IV hydration. Monitor closely in the ICU switching over to medical floor if stable in the morning. (3) Pneumonia: Start date: 08/29/22 Status: Acute Assessment and plan: Patchy right upper lobe pneumonia on CT scan with adequate antibiotic coverage as discussed above with clindamycin, doxycycline and Rocephin. Continue O2 supplementation as needed weaning as possible. Aggressive respiratory treatment for his COPD. (4) COPD (chronic obstructive pulmonary disease): Status: Chronic Assessment and plan: Slightly exacerbated with patient to continue inhaled albuterol and Combivent as well as Solu-Medrol IV to be weaned to oral prednisone pulse therapy if patient remained stable overnight. (5) Seizure disorder: Assessment and plan: Controlled with breakthrough seizure is not uncommon. Patient states that his becomes nervous when he has seizures but he usually recovers well and has not had problems on the present regimen which will be continued. He did have decreased intake and have slight dehydration with decreased drinking during the day. He should be encouraged to orally hydrate and return to normal nutrition after the seizures. He does not have problems swallowing. (6) Dementia: Assessment and plan: On medical therapy with this to be continued the same. (7) HTN (hypertension): Assessment and plan: On medical therapy with adjustment and continuation of the same. (8) CAD (coronary artery disease): Assessment and plan: No active symptoms with negative troponin. Monitor clinically with telemetry. BNP was slightly elevated patient has no overt symptoms of heart failure with this both likely secondary to COPD. Echocardiogram was ordered for the morning. History of Present Illness History of Present Illness Chief Complaint: Breakthrough seizure at home with decreased oral intake. Narrative: This is an 87-year-old male patient who has advancing dementia on medical therapy who has also breakthrough seizures with seizure disorder which are not uncommon. He states that whenever he has seizures his gets nervous. He had such seizure the day of presentation and in the ED evaluation was found to have a probable lobar pneumonia by CT and had associated hypoxemia which was corrected with O2 supplementation. During his ED evaluation he also had hypotension which responded to IV fluids with slight increase in his creatinine with decreased intake the day of admission because of his postseizure state though he was not postictal. He remembers not eating or drinking well because he did not feel hungry or thirsty. He denies any cough or fevers. He had no headache and had no trauma from his seizure. The patient offers no further history and his was not available during my interview. He is a full code. He was previously a DNR and Perative care needs to be consulted during his hospital stay. Review of Systems Narrative: 13 point review of systems otherwise unrevealing or stable. PFSH All Active Problems Acute renal insufficiency (Acute) Septic shock (Acute) Acute respiratory failure with hypoxia (Acute) Sepsis (Acute) Pneumonia (Acute) COPD (chronic obstructive pulmonary disease) (Chronic) Breakthrough seizure (Acute) COVID-19 (Acute) Generalized weakness (Acute) Rib fractures (Acute) Medical History CAD (coronary artery disease) Dementia H/O non-insulin dependent diabetes mellitus HTN (hypertension) Hx of hyperlipidemia Kidney stones Lung cancer Myocardial infarction Seizure Seizure disorder UTI (urinary tract infection) Surgical History History of coronary artery stent placement History of tonsillectomy Family History Maternal Grandfather Leukemia Social History Smoking/Tobacco Use Status: Never Smoking risk assessment performed?: Yes Alcohol Intake: never Substance use type: does not use Do you feel safe at home: Yes Do you feel safe in your relationship?: Yes Meds Allergies and Home Medications Allergies Allergy/AdvReac Type Severity Reaction Status Date / Time oxycodone [From Percocet] AdvReac Unverified 08/29/22 14:10 Penicillins AdvReac Unverified 08/29/22 14:10 Home Medications Medication Instructions Recorded Confirmed Type acetaminophen 500 mg tablet (Mapap 1,000 mg PO BID PRN 04/27/16 08/29/22 History Extra Strength) albuterol sulfate 90 mcg/actuation 2 puff inhalation Q4H PRN PRN 04/27/16 08/29/22 History aerosol inhaler (Proventil HFA) clopidogrel 75 mg tablet (Plavix) 75 mg PO DAILY 04/27/16 08/29/22 History nitroglycerin 0.4 mg sublingual 0.4 mg sublingual Q5 MIN PRN X3 PRN 04/27/16 08/29/22 History tablet (Nitrostat) pantoprazole 40 mg tablet,delayed 40 mg PO DAILY 04/27/16 08/29/22 History release aspirin 81 mg tablet,delayed 81 mg PO DAILY 12/18/19 08/29/22 History release atorvastatin 40 mg tablet (Lipitor) 40 mg PO DAILY 12/18/19 08/29/22 History citalopram 10 mg tablet 20 mg PO DAILY 02/20/21 08/29/22 History therapeutic multivitamin 1 tab PO DAILY 02/20/21 08/29/22 History divalproex 500 mg tablet,extended 500 mg PO BID 11/26/21 08/29/22 History release 24 hr donepezil 10 mg tablet 10 mg PO DAILY 11/26/21 08/29/22 History melatonin 10 mg disintegrating 15 mg PO HS PRN 11/26/21 08/29/22 History tablet metoprolol succinate 25 mg 25 mg PO DAILY 11/26/21 08/29/22 History tablet,extended release 24 hr tamsulosin 0.4 mg capsule 0.4 mg PO DAILY 11/26/21 08/29/22 History memantine 5 mg tablet 5 mg PO QHS 06/02/22 08/29/22 History lacosamide 100 mg tablet 100 mg PO BID #60 tabs 06/04/22 08/29/22 Rx doxylamin 12.5 mg-PSE 10 mg-DM 20 1 packet PO PRN PRN 08/29/22 08/29/22 History mg-acetaminophen 650 mg oral pwdr pk (Юлия-Pace Plus Cold-Flu) ipratropium 20 mcg-albuterol 100 1 puff inhalation Q6H 08/29/22 08/29/22 History mcg/actuation mist for inhalation (Combivent Respimat) ketoconazole 2 % topical cream 1 applic topical BID 08/29/22 08/29/22 History Exam Narrative Exam Narrative: General: Patient appears older than stated age, he is lying in bed with his head slightly elevated at 45 degree angle and in no acute distress. He is slightly confused when asked details of his history but knows that he is in the hospital and is oriented to person. HEENT: Normocephalic, eyes with pupils equal and react to light symmetrically, extraocular movement tact and sclera anicteric. Oropharynx with dry mucosa and denture plates. Neck: Supple without JVD. Back: Stooped posture without CVA tenderness. Lungs: Bronchovesicular breath sounds diffusely with slight increased expiratory phase with expiratory wheeze especially with cough. Occasional coarse crackle but no focalizing rales or rhonchi. Heart: Regular in rhythm with 3/6 systolic murmur left renal border. No appreciated gallop or rub. Abdomen: Normal contour, soft and nontender to palpation with no palpable hepatosplenomegaly. Genitalia/rectal: Exam deferred. Extremities: Without clubbing, cyanosis or pitting edema. Fair cap refill. Skin: Slightly pale, warm and moist. Adherent changes over sun exposed areas. Neuro: Cranial nerves II through XII grossly intact, no focalizing motor deficits. No abnormal tone and no tremor. Psych: Normal affect with good eye contact and normal mood. No abnormal thought processes. Remote memory intact and recent memory less intact. Results Imaging Imaging Studies: EXAM: ? CT CHEST/ABD/PEL W CLINICAL HISTORY: ? cough, fever, seizures, ams. ? TECHNIQUE:? Imaging Protocol: Axial computed tomography images with coronal and sagittal reformatted images were created and reviewed CONTRAST MATERIAL:? Intravenous: Omnipaque 350 Contrast volume:100 ml Oral: None COMPARISON:? CR CHEST 2 VIEWS PA,LAT from 05/25/2010 CR XR CHEST 2V PA ? LATERAL from 12/18/2019 CR XR CHEST 2V PA ? LATERAL from 02/20/[address] ABDOMEN ? PELVIS W from 06/02/2022 FINDINGS: CHEST: LUNGS: There is prominent patchy infiltrate in the right upper lobe.? Increased markings in the basal segments of the right lower lobe are unchanged from 05/13/2022.? No new findings in the opposite-left lung.? No pleural effusions on either side MEDIASTINUM: There is no hilar nor mediastinal adenopathy. Visualized thyroid unremarkable. CARDIAC: Heart size is normal.? There is no pericardial effusion.Caliber of the thoracic aorta is within normal limits. OSSEOUS: T5 compression fracture which was not evident on lateral chest x-ray of December 2019 but appears to have been present on chest x-ray of February 2021. ABDOMEN: There is no ascites. LIVER: Again noted is a previously described right hepatic lobe hemangioma which measures approximately 2.5 x 2.3 cm.? No additional focal hepatic findings nor dilatation of intrahepatic ducts.? GALLBLADDER/BILIARY: Gallbladder is difficult to assess because of motion artifact but there are no obvious radiopaque calculi and the gallbladder is not distended nor grossly edematous.? CBD is not dilated. PANCREAS: No evidence of pancreatic mass nor dilatation of the pancreatic duct.? SPLEEN: Spleen is not enlarged. There are no intrasplenic lesions.? Splenic and portal veins are patent. ADRENALS: There are no significant adrenal masses. KIDNEYS: Nonobstructive calculi again noted in the right kidney.? No hydronephrosis on either side.? No calculi in left kidney.? Ureters not dilated..? There is uniform thickening of the urinary bladder wall consistent with probable chronic cystitis.? There is no gas within the bladder wall.? No radiopaque calculi in the bladder lumen. ABDOMINAL AORTA: Calcified but not enlarged. LYMPH NODES: There is no retroperitoneal nor paraaortic adenopathy. ABDOMINAL WALL: No evidence of significant anterior abdominal wall nor inguinal hernia.? GI: There is no evidence of bowel obstruction. PELVIS:? LYMPH NODES: There is no intrapelvic nor inguinal adenopathy. GI: No evidence of appendicitis.Sigmoid diverticuli but no evidence of obvious acute diverticulitis. URINARY BLADDER: Diffusely thickened bladder wall. REPRODUCTIVE: Prostate size upper normal.? Seminal vesicles unremarkable. OSSEOUS: No significant osseous lesions. IMPRESSION: 1. There is prominent patchy infiltrate in the right upper lobe.? Consistent with pneumonia.? No pleural effusions.? No obvious intrathoracic adenopathy. 2. T5 compression fracture which was evident on chest x-ray of 02/20/2021 but not on chest x-ray of 12/18/2019 3. Stable nonobstructive calculi in the right kidney again noted. 4. Diffuse thickening of the urinary bladder wall consistent with chronic c ystitis.? Prostate gland size appears upper normal.? No urinary bladder distension or diverticuli evident.? No radiopaque calculi evident in the urinary bladder lumen. 5.? Sigmoid diverticulosis with no evidence of acute diverticulitis. Labs 08/30/22 05:30 08/30/22 05:30 Labs: Laboratory Results - last 24 hr 08/29/22 08/29/22 08/29/22 14:12 14:23 14:23 WBC RBC Hgb Hct MCV MCH MCHC RDW Plt Count MPV Immature Gran % Neutrophils % Band Neutrophils % Lymphocytes % Monocytes % Eosinophils % Basophils % Nucleated RBC % Absolute Neutrophils Absolute Lymphocytes Absolute Monocytes Absolute Eosinophils Absolute Basophils RBC Morphology VBG pH VBG pCO2 VBG pO2 VBG HCO3 VBG Total CO2 VBG O2 Saturation VBG Base Excess VBG Lactate Sodium 144 Potassium 5.1 Chloride 105 Carbon Dioxide 27.1 Anion Gap 11.9 H BUN 24 H Creatinine 1.4 H Est GFR (CKD-EPI 2020) 48.95 Glucose 112 H Calcium 8.9 Magnesium 1.8 Total Bilirubin 0.9 AST 22 ALT 20 Alkaline Phosphatase 66 Troponin I < 50 NT-Pro-B Natriuret Pep Total Protein 6.7 Albumin 3.3 L Procalcitonin TSH 2.86 Urine Color Urine Clarity Urine pH Ur Specific [place] Urine Protein Urine Ketones Urine Blood Urine Nitrite Urine Bilirubin Urine Urobilinogen Ur Leukocyte Esterase Urine RBC Urine WBC Ur Epithelial Cells Urine Crystals Urine Bacteria Urine Casts Urine Mucus Ur Culture Indicated? Urine Glucose Valproic Acid 61.7 COVID-19 Source SARS-CoV-2 (PCR) Influenza Type A (PCR) Influenza Type B (PCR) RSV (PCR) 08/29/22 08/29/22 08/29/22 14:23 14:23 15:15 WBC 17.68 H RBC 4.79 Hgb 15.1 Hct 44.6 MCV 93 MCH 31.5 MCHC 33.9 RDW 13.6 Plt Count 163 MPV 10.1 Immature Gran % 0.0 Neutrophils % 63.0 Band Neutrophils % 11 Lymphocytes % 11.0 Monocytes % 15.0 Eosinophils % 0.0 Basophils % 0.0 Nucleated RBC % 0.0 Absolute Neutrophils 13.08 H Absolute Lymphocytes 1.94 Absolute Monocytes 2.65 H Absolute Eosinophils 0.00 Absolute Basophils 0.00 RBC Morphology Normal VBG pH VBG pCO2 VBG pO2 VBG HCO3 VBG Total CO2 VBG O2 Saturation VBG Base Excess VBG Lactate Sodium Potassium Chloride Carbon Dioxide Anion Gap BUN Creatinine Est GFR (CKD-EPI 2020) Glucose Calcium Magnesium Total Bilirubin AST ALT Alkaline Phosphatase Troponin I NT-Pro-B Natriuret Pep 5754 H Total Protein Albumin Procalcitonin TSH Urine Color Urine Clarity Urine pH Ur Specific [place] Urine Protein Urine Ketones Urine Blood Urine Nitrite Urine Bilirubin Urine Urobilinogen Ur Leukocyte Esterase Urine RBC Urine WBC Ur Epithelial Cells Urine Crystals Urine Bacteria Urine Casts Urine Mucus Ur Culture Indicated? Urine Glucose Valproic Acid COVID-19 Source Nasopharynx SARS-CoV-2 (PCR) Negative Influenza Type A (PCR) Negative Influenza Type B (PCR) Negative RSV (PCR) Negative 08/29/22 08/29/22 08/29/22 15:55 17:00 17:00 WBC RBC Hgb Hct MCV MCH MCHC RDW Plt Count MPV Immature Gran % Neutrophils % Band Neutrophils % Lymphocytes % Monocytes % Eosinophils % Basophils % Nucleated RBC % Absolute Neutrophils Absolute Lymphocytes Absolute Monocytes Absolute Eosinophils Absolute Basophils RBC Morphology VBG pH VBG pCO2 VBG pO2 VBG HCO3 VBG Total CO2 VBG O2 Saturation VBG Base Excess VBG Lactate 3.0 H* Sodium Potassium Chloride Carbon Dioxide Anion Gap BUN Creatinine Est GFR (CKD-EPI 2020) Glucose Calcium Magnesium Total Bilirubin AST ALT Alkaline Phosphatase Troponin I NT-Pro-B Natriuret Pep Total Protein Albumin Procalcitonin 14.8 TSH Urine Color Yellow Urine Clarity Clear Urine pH 6.0 Ur Specific [place] 1.015 Urine Protein 30 H Urine Ketones 15 H Urine Blood Negative Urine Nitrite Negative Urine Bilirubin Small H Urine Urobilinogen 1.0 H Ur Leukocyte Esterase Negative Urine RBC 0-2 Urine WBC 0-2 Ur Epithelial Cells Rare Urine Crystals Negative Urine Bacteria Negative Urine Casts Negative Urine Mucus Negative Ur Culture Indicated? No Urine Glucose Negative Valproic Acid COVID-19 Source SARS-CoV-2 (PCR) Influenza Type A (PCR) Influenza Type B (PCR) RSV (PCR) 08/29/22 08/29/22 08/29/22 17:30 19:07 19:15 WBC RBC Hgb Hct MCV MCH MCHC RDW Plt Count MPV Immature Gran % Neutrophils % Band Neutrophils % Lymphocytes % Monocytes % Eosinophils % Basophils % Nucleated RBC % Absolute Neutrophils Absolute Lymphocytes Absolute Monocytes Absolute Eosinophils Absolute Basophils RBC Morphology VBG pH Cancelled 7.40 VBG pCO2 Cancelled 38 L VBG pO2 Cancelled 66 VBG HCO3 Cancelled 24 VBG Total CO2 Cancelled 22 L VBG O2 Saturation Cancelled 93 VBG Base Excess Cancelled -1 VBG Lactate Sodium Potassium Chloride Carbon Dioxide Anion Gap BUN Creatinine Est GFR (CKD-EPI 2020) Glucose Calcium Magnesium Total Bilirubin AST ALT Alkaline Phosphatase Troponin I < 50 NT-Pro-B Natriuret Pep Total Protein Albumin Procalcitonin TSH Urine Color Urine Clarity Urine pH Ur Specific [place] Urine Protein Urine Ketones Urine Blood Urine Nitrite Urine Bilirubin Urine Urobilinogen Ur Leukocyte Esterase Urine RBC Urine WBC Ur Epithelial Cells Urine Crystals Urine Bacteria Urine Casts Urine Mucus Ur Culture Indicated? Urine Glucose Valproic Acid COVID-19 Source SARS-CoV-2 (PCR) Influenza Type A (PCR) Influenza Type B (PCR) RSV (PCR) Last Vital Signs Temp 37.1 C 08/29/22 14:04 Pulse 54 L 08/29/22 20:00 Resp 19 08/29/22 20:10 BP 111/38 L 08/29/22 20:00 Pulse Ox 95 08/29/22 20:10 Time Spent Time spent with Patient: >75 minutes Time was spent: preparing to see the patient(eg.review tests), obtaining and/or reviewing separately otained hiistory, ordering medications,tests, procedures, referring, communicating with other health hospice care consultant, indepentently interpreting results and care coordination
--- NOTE | 2022-08-29 20:41 | ED.GENADUL_ITS ---
Discharge Plan Disposition Patient Disposition: Admit to [facility] Discharge Details Clinical Impression: Breakthrough seizure, Pneumonia, Acute respiratory failure with hypoxia, Acute renal insufficiency, Septic shock Admit Date/Time: 08/29/22 20:31 Admit Provider: Gibran Pabon Attending Provider: Gibran Pabon Primary Care Provider: Jordon Padron ED Provider: Stacy Lambert Discharge Data Discharge Date/Time-TO BE ENTERED AT DEPARTURE: 08/29/22 22:24 HPI General Mode of arrival: ambulatory . Date/Time Provider Initiated Documentation: 08/29/22 14:00 . Limitations to Documentation: no limitations . Information obtained by: patient and RN notes reviewed . History of Present Illness and is localized to the head. No relieving factors improve symptom(s), No exacerbating factors reported . Patient notes cough, fever/chills and malaise. Patient did receive the following treatments prior to arrival, none Related Data Home Medications Medication Instructions Recorded Confirmed acetaminophen 500 mg tablet (Mapap 1,000 mg PO BID PRN 04/27/16 08/29/22 Extra Strength) albuterol sulfate 90 mcg/actuation 2 puff inhalation Q4H PRN PRN 04/27/16 08/29/22 aerosol inhaler (Proventil HFA) clopidogrel 75 mg tablet (Plavix) 75 mg PO DAILY 04/27/16 08/29/22 nitroglycerin 0.4 mg sublingual 0.4 mg sublingual Q5 MIN PRN X3 PRN 04/27/16 08/29/22 tablet (Nitrostat) pantoprazole 40 mg tablet,delayed 40 mg PO DAILY 04/27/16 08/29/22 release aspirin 81 mg tablet,delayed 81 mg PO DAILY 12/18/19 08/29/22 release atorvastatin 40 mg tablet (Lipitor) 40 mg PO DAILY 12/18/19 08/29/22 citalopram 10 mg tablet 20 mg PO DAILY 02/20/21 08/29/22 therapeutic multivitamin 1 tab PO DAILY 02/20/21 08/29/22 divalproex 500 mg tablet,extended 500 mg PO BID 11/26/21 08/29/22 release 24 hr donepezil 10 mg tablet 10 mg PO DAILY 11/26/21 08/29/22 melatonin 10 mg disintegrating 15 mg PO HS PRN 11/26/21 08/29/22 tablet metoprolol succinate 25 mg 25 mg PO DAILY 11/26/21 08/29/22 tablet,extended release 24 hr tamsulosin 0.4 mg capsule 0.4 mg PO DAILY 11/26/21 08/29/22 memantine 5 mg tablet 5 mg PO QHS 06/02/22 08/29/22 lacosamide 100 mg tablet 100 mg PO BID #60 tabs 06/04/22 08/29/22 doxylamin 12.5 mg-PSE 10 mg-DM 20 1 packet PO PRN PRN 08/29/22 08/29/22 mg-acetaminophen 650 mg oral pwdr pk (Юлия-Morley Plus Cold-Flu) ipratropium 20 mcg-albuterol 100 1 puff inhalation Q6H 08/29/22 08/29/22 mcg/actuation mist for inhalation (Combivent Respimat) ketoconazole 2 % topical cream 1 applic topical BID 08/29/22 08/29/22 Previous Rx's Medication Instructions Recorded lacosamide 100 mg tablet 100 mg PO BID #60 tabs 06/04/22 Allergies Allergy/AdvReac Type Severity Reaction Status Date / Time oxycodone [From Percocet] AdvReac Unverified 08/29/22 14:10 Penicillins AdvReac Unverified 08/29/22 14:10 General Stated Complaint: GenMedical FORD: 3 PFSH All Active Problems (Updated 08/29/22 @ 22:38 by NAM Holt) Acute renal insufficiency (Acute) Septic shock (Acute) Acute respiratory failure with hypoxia (Acute) Sepsis (Acute) Pneumonia (Acute) COPD (chronic obstructive pulmonary disease) (Chronic) Breakthrough seizure (Acute) COVID-19 (Acute) Generalized weakness (Acute) Rib fractures (Acute) Medical History CAD (coronary artery disease) Dementia H/O non-insulin dependent diabetes mellitus HTN (hypertension) Hx of hyperlipidemia Kidney stones Lung cancer Myocardial infarction Seizure Seizure disorder UTI (urinary tract infection) Surgical History History of coronary artery stent placement History of tonsillectomy Family History Maternal Grandfather Leukemia Social History Smoking/Tobacco Use Status: Never Smoking risk assessment performed?: Yes Alcohol Intake: never Substance use type: does not use Do you feel safe at home: Yes Do you feel safe in your relationship?: Yes Course Vital Signs Vital signs: Vital Signs Temperature 37.1 C 08/29/22 14:04 Pulse 72 08/29/22 14:04 Respiratory Rate 16 08/29/22 14:04 Blood Pressure 113/46 L 08/29/22 14:04 Pulse Oximetry 92 08/29/22 14:04 Temperature 37.1 C 08/29/22 14:04 Temperature Source Oral 08/29/22 14:04 Pulse 54 L 08/29/22 20:00 Pulse 59 L 08/29/22 20:10 Respiratory Rate 19 08/29/22 20:10 Respiratory Effort Normal 08/29/22 14:16 Blood Pressure 111/38 L 08/29/22 20:00 Blood Pressure Mean 57 08/29/22 20:00 Pulse Oximetry 95 08/29/22 20:10 Oxygen Delivery Method Nasal Cannula 08/29/22 15:17 Oxygen Flow Rate 2 08/29/22 15:17 Pain Level 0 08/29/22 14:04 Lab/Test Results Lab/Test Results: 08/29/22 17:17 Blood Blood Culture - Pending 08/29/22 17:00 Blood Blood Culture - Pending Laboratory Tests Range/Units 08/29/22 08/29/22 08/29/22 14:12 14:23 14:23 WBC (4.4-10.8) 10^3/uL RBC (4.36-5.78) 10^6/uL Hgb (13.5-17.5) g/dL Hct (40.0-50.0) % MCV (80-95) fL MCH (27.0-33.0) pg MCHC (32.0-36.0) % RDW (11.8-14.1) % Plt Count (130-400) 10^3/uL MPV (8.0-11.0) fL Immature Gran % Neutrophils % Band Neutrophils % Lymphocytes % Monocytes % Eosinophils % Basophils % Nucleated RBC % (0.0-0.3) % Absolute Neutrophils (1.2-6.7) 10^3/uL Absolute Lymphocytes (1.2-3.4) 10^3/uL Absolute Monocytes (0.1-0.8) 10^3/uL Absolute Eosinophils (0.0-0.7) 10^3/uL Absolute Basophils (0.0-0.2) 10^3/uL RBC Morphology VBG pH VBG pCO2 VBG pO2 VBG HCO3 VBG Total CO2 VBG O2 Saturation VBG Base Excess VBG Lactate (0.6-1.4) mmol/L Sodium (136-145) mmol/L 144 Potassium (3.5-5.1) mmol/L 5.1 Chloride (98-107) mmol/L 105 Carbon Dioxide (21.0-32.0) mmol/L 27.1 Anion Gap (3-11) mmol/L 11.9 H BUN (7-18) mg/dL 24 H Creatinine (0.70-1.30) mg/dL 1.4 H Est GFR (CKD-EPI 2020) (mL/min/1.73m2) 48.95 Glucose (74-106) mg/dL 112 H Calcium (8.5-10.1) mg/dL 8.9 Magnesium (1.8-2.4) mg/dL 1.8 Total Bilirubin (0.2-1.0) mg/dL 0.9 AST (15-37) U/L 22 ALT (16-63) U/L 20 Alkaline Phosphatase (46-116) U/L 66 Troponin I (<or=60) ng/L < 50 NT-Pro-B Natriuret Pep (<300) pg/mL Total Protein (6.4-8.2) g/dL 6.7 Albumin (3.4-5.0) g/dL 3.3 L Procalcitonin ng/mL TSH (0.36-3.74) uIU/mL 2.86 Urine Color (Yellow) Urine Clarity (Clear) Urine pH (5-8) Ur Specific Artemas (1.005-1.025) Urine Protein (Negative) mg/dL Urine Ketones (Negative) mg/dL Urine Blood (Negative) Urine Nitrite (Negative) Urine Bilirubin (Negative) Urine Urobilinogen (Up to 0.2) mg/dL Ur Leukocyte Esterase (Negative) Urine RBC (0-2) HPF Urine WBC (0-5) HPF Ur Epithelial Cells (Negative) HPF Urine Crystals (Negative) HPF Urine Bacteria (Negative) HPF Urine Casts (Negative) LPF Urine Mucus (Negative) Ur Culture Indicated? Urine Glucose (Negative) mg/dL Valproic Acid ( - 150) ug/mL 61.7 COVID-19 Source SARS-CoV-2 (PCR) (Negative) Influenza Type A (PCR) (Negative) Influenza Type B (PCR) (Negative) RSV (PCR) (Negative) Range/Units 08/29/22 08/29/22 08/29/22 14:23 14:23 15:15 WBC (4.4-10.8) 10^3/uL 17.68 H RBC (4.36-5.78) 10^6/uL 4.79 Hgb (13.5-17.5) g/dL 15.1 Hct (40.0-50.0) % 44.6 MCV (80-95) fL 93 MCH (27.0-33.0) pg 31.5 MCHC (32.0-36.0) % 33.9 RDW (11.8-14.1) % 13.6 Plt Count (130-400) 10^3/uL 163 MPV (8.0-11.0) fL 10.1 Immature Gran % 0.0 Neutrophils % 63.0 Band Neutrophils % 11 Lymphocytes % 11.0 Monocytes % 15.0 Eosinophils % 0.0 Basophils % 0.0 Nucleated RBC % (0.0-0.3) % 0.0 Absolute Neutrophils (1.2-6.7) 10^3/uL 13.08 H Absolute Lymphocytes (1.2-3.4) 10^3/uL 1.94 Absolute Monocytes (0.1-0.8) 10^3/uL 2.65 H Absolute Eosinophils (0.0-0.7) 10^3/uL 0.00 Absolute Basophils (0.0-0.2) 10^3/uL 0.00 RBC Morphology Normal VBG pH VBG pCO2 VBG pO2 VBG HCO3 VBG Total CO2 VBG O2 Saturation VBG Base Excess VBG Lactate (0.6-1.4) mmol/L Sodium (136-145) mmol/L Potassium (3.5-5.1) mmol/L Chloride (98-107) mmol/L Carbon Dioxide (21.0-32.0) mmol/L Anion Gap (3-11) mmol/L BUN (7-18) mg/dL Creatinine (0.70-1.30) mg/dL Est GFR (CKD-EPI 2020) (mL/min/1.73m2) Glucose (74-106) mg/dL Calcium (8.5-10.1) mg/dL Magnesium (1.8-2.4) mg/dL Total Bilirubin (0.2-1.0) mg/dL AST (15-37) U/L ALT (16-63) U/L Alkaline Phosphatase (46-116) U/L Troponin I (<or=60) ng/L NT-Pro-B Natriuret Pep (<300) pg/mL 5754 H Total Protein (6.4-8.2) g/dL Albumin (3.4-5.0) g/dL Procalcitonin ng/mL TSH (0.36-3.74) uIU/mL Urine Color (Yellow) Urine Clarity (Clear) Urine pH (5-8) Ur Specific Artemas (1.005-1.025) Urine Protein (Negative) mg/dL Urine Ketones (Negative) mg/dL Urine Blood (Negative) Urine Nitrite (Negative) Urine Bilirubin (Negative) Urine Urobilinogen (Up to 0.2) mg/dL Ur Leukocyte Esterase (Negative) Urine RBC (0-2) HPF Urine WBC (0-5) HPF Ur Epithelial Cells (Negative) HPF Urine Crystals (Negative) HPF Urine Bacteria (Negative) HPF Urine Casts (Negative) LPF Urine Mucus (Negative) Ur Culture Indicated? Urine Glucose (Negative) mg/dL Valproic Acid ( - 150) ug/mL COVID-19 Source Nasopharynx SARS-CoV-2 (PCR) (Negative) Negative Influenza Type A (PCR) (Negative) Negative Influenza Type B (PCR) (Negative) Negative RSV (PCR) (Negative) Negative Range/Units 08/29/22 08/29/22 08/29/22 15:55 17:00 17:00 WBC (4.4-10.8) 10^3/uL RBC (4.36-5.78) 10^6/uL Hgb (13.5-17.5) g/dL Hct (40.0-50.0) % MCV (80-95) fL MCH (27.0-33.0) pg MCHC (32.0-36.0) % RDW (11.8-14.1) % Plt Count (130-400) 10^3/uL MPV (8.0-11.0) fL Immature Gran % Neutrophils % Band Neutrophils % Lymphocytes % Monocytes % Eosinophils % Basophils % Nucleated RBC % (0.0-0.3) % Absolute Neutrophils (1.2-6.7) 10^3/uL Absolute Lymphocytes (1.2-3.4) 10^3/uL Absolute Monocytes (0.1-0.8) 10^3/uL Absolute Eosinophils (0.0-0.7) 10^3/uL Absolute Basophils (0.0-0.2) 10^3/uL RBC Morphology VBG pH VBG pCO2 VBG pO2 VBG HCO3 VBG Total CO2 VBG O2 Saturation VBG Base Excess VBG Lactate (0.6-1.4) mmol/L 3.0 H* Sodium (136-145) mmol/L Potassium (3.5-5.1) mmol/L Chloride (98-107) mmol/L Carbon Dioxide (21.0-32.0) mmol/L Anion Gap (3-11) mmol/L BUN (7-18) mg/dL Creatinine (0.70-1.30) mg/dL Est GFR (CKD-EPI 2020) (mL/min/1.73m2) Glucose (74-106) mg/dL Calcium (8.5-10.1) mg/dL Magnesium (1.8-2.4) mg/dL Total Bilirubin (0.2-1.0) mg/dL AST (15-37) U/L ALT (16-63) U/L Alkaline Phosphatase (46-116) U/L Troponin I (<or=60) ng/L NT-Pro-B Natriuret Pep (<300) pg/mL Total Protein (6.4-8.2) g/dL Albumin (3.4-5.0) g/dL Procalcitonin ng/mL 14.8 TSH (0.36-3.74) uIU/mL Urine Color (Yellow) Yellow Urine Clarity (Clear) Clear Urine pH (5-8) 6.0 Ur Specific Artemas (1.005-1.025) 1.015 Urine Protein (Negative) mg/dL 30 H Urine Ketones (Negative) mg/dL 15 H Urine Blood (Negative) Negative Urine Nitrite (Negative) Negative Urine Bilirubin (Negative) Small H Urine Urobilinogen (Up to 0.2) mg/dL 1.0 H Ur Leukocyte Esterase (Negative) Negative Urine RBC (0-2) HPF 0-2 Urine WBC (0-5) HPF 0-2 Ur Epithelial Cells (Negative) HPF Rare Urine Crystals (Negative) HPF Negative Urine Bacteria (Negative) HPF Negative Urine Casts (Negative) LPF Negative Urine Mucus (Negative) Negative Ur Culture Indicated? No Urine Glucose (Negative) mg/dL Negative Valproic Acid ( - 150) ug/mL COVID-19 Source SARS-CoV-2 (PCR) (Negative) Influenza Type A (PCR) (Negative) Influenza Type B (PCR) (Negative) RSV (PCR) (Negative) Range/Units 08/29/22 08/29/22 08/29/22 17:30 19:07 19:15 WBC (4.4-10.8) 10^3/uL RBC (4.36-5.78) 10^6/uL Hgb (13.5-17.5) g/dL Hct (40.0-50.0) % MCV (80-95) fL MCH (27.0-33.0) pg MCHC (32.0-36.0) % RDW (11.8-14.1) % Plt Count (130-400) 10^3/uL MPV (8.0-11.0) fL Immature Gran % Neutrophils % Band Neutrophils % Lymphocytes % Monocytes % Eosinophils % Basophils % Nucleated RBC % (0.0-0.3) % Absolute Neutrophils (1.2-6.7) 10^3/uL Absolute Lymphocytes (1.2-3.4) 10^3/uL Absolute Monocytes (0.1-0.8) 10^3/uL Absolute Eosinophils (0.0-0.7) 10^3/uL Absolute Basophils (0.0-0.2) 10^3/uL RBC Morphology VBG pH Cancelled 7.40 VBG pCO2 Cancelled 38 L VBG pO2 Cancelled 66 VBG HCO3 Cancelled 24 VBG Total CO2 Cancelled 22 L VBG O2 Saturation Cancelled 93 VBG Base Excess Cancelled -1 VBG Lactate (0.6-1.4) mmol/L Sodium (136-145) mmol/L Potassium (3.5-5.1) mmol/L Chloride (98-107) mmol/L Carbon Dioxide (21.0-32.0) mmol/L Anion Gap (3-11) mmol/L BUN (7-18) mg/dL Creatinine (0.70-1.30) mg/dL Est GFR (CKD-EPI 2020) (mL/min/1.73m2) Glucose (74-106) mg/dL Calcium (8.5-10.1) mg/dL Magnesium (1.8-2.4) mg/dL Total Bilirubin (0.2-1.0) mg/dL AST (15-37) U/L ALT (16-63) U/L Alkaline Phosphatase (46-116) U/L Troponin I (<or=60) ng/L < 50 NT-Pro-B Natriuret Pep (<300) pg/mL Total Protein (6.4-8.2) g/dL Albumin (3.4-5.0) g/dL Procalcitonin ng/mL TSH (0.36-3.74) uIU/mL Urine Color (Yellow) Urine Clarity (Clear) Urine pH (5-8) Ur Specific Artemas (1.005-1.025) Urine Protein (Negative) mg/dL Urine Ketones (Negative) mg/dL Urine Blood (Negative) Urine Nitrite (Negative) Urine Bilirubin (Negative) Urine Urobilinogen (Up to 0.2) mg/dL Ur Leukocyte Esterase (Negative) Urine RBC (0-2) HPF Urine WBC (0-5) HPF Ur Epithelial Cells (Negative) HPF Urine Crystals (Negative) HPF Urine Bacteria (Negative) HPF Urine Casts (Negative) LPF Urine Mucus (Negative) Ur Culture Indicated? Urine Glucose (Negative) mg/dL Valproic Acid ( - 150) ug/mL COVID-19 Source SARS-CoV-2 (PCR) (Negative) Influenza Type A (PCR) (Negative) Influenza Type B (PCR) (Negative) RSV (PCR) (Negative) Sign Out Sign Out Data: Sign Out Comment: Patient signed out pending completion of evaluation and disposition. Pending CT scan and some additional labs. Patient concern for seizure event that may be from either cardiac nature given EKG changes and pulmonary edema versus infection. Last updated by Rupert Guadalupe NP at 08/29/22 15:34
[2022-08-29] MEDS: Memantine 5 MG TAB PO (23:38)
[2022-08-29] MEDS: Heparin 5,000 UNITS/ML VIAL 5000 UNITS SC (23:54)
[2022-08-30] VITALS (171 sets, daily range): BP systolic 85–147; BP diastolic 40–70; PULSE 48–117; RESP 10–32; TEMP 36.5–36.9; O2SAT 85–99
[2022-08-30] MEDS: CLINDAMYCIN 600 MG/50 ML BAG 100 MG IVPB (02:45)
[2022-08-30] MEDS: methylPREDNISolone SUCC 125 MG VIAL 60 MG IVP (02:49)
[2022-08-30] MEDS: Normal Saline Flush 10 ML SYR IVP ×3 (02:50→13:44)
[2022-08-30] MEDS: Ipratropium/Albuterol 4 GM 120 PUFF INH IH ×4 (03:06→21:31)
[2022-08-30] MEDS: DOXYCYCLINE 100 MG in Normal Saline 100 ML IVPB ×2 (04:28→16:09)
[2022-08-30] MEDS: Heparin 5,000 UNITS/ML VIAL 5000 UNITS SC ×3 (05:30→21:31)
[2022-08-30 05:43] LABS: Lactate 2.8 mmol/L (0.6-1.4)
[2022-08-30 05:51] LABS: HCT 36.7 % (40.0-50.0); HGB 12.2 g/dL (13.5-17.5); MCH 30.7 pg (27.0-33.0); MCHC 33.2 % (32.0-36.0); MCV 92 fL (80-95); MPV 10.1 fL (8.0-11.0); Platelet Count 123 10^3/uL (130-400); RBC 3.98 10^6/uL (4.36-5.78); RDW 13.9 % (11.8-14.1); RDW-SD 47.1 fL; WBC 14.33 10^3/uL (4.4-10.8)
[2022-08-30 06:14] LABS: ALT 14 U/L (16-63); AST 19 U/L (15-37); Albumin 2.5 g/dL (3.4-5.0); Alkaline Phosphatase 47 U/L (46-116); Anion Gap 10.8 mmol/L (3-11); BUN 26 mg/dL (7-18); Bilirubin, Total 0.6 mg/dL (0.2-1.0); CO2 24.2 mmol/L (21.0-32.0); CREATININE 1.2 mg/dL (0.70-1.30); Calcium 7.9 mg/dL (8.5-10.1); Chloride 110 mmol/L (98-107); Estimated GFR 58.89 (mL/min/1.73m2); Glucose 112 mg/dL (74-106); NT-proBNP 3511 pg/mL (<300); Potassium 4.4 mmol/L (3.5-5.1); Sodium 145 mmol/L (136-145); Total Protein 5.4 g/dL (6.4-8.2)
--- NOTE | 2022-08-30 08:35 | W.PM.PROGNOT ---
Date of Service Date of service: 08/30/22 Time of Service: 08:35 Assessment and Plan Assessment and plan (1) Pneumonia: Start date: 08/29/22 Status: Acute Assessment and plan: RUL PNA in setting of a seizure - suspected aspiration PNA. I have changed abx to doxycycline/ceftriaxone/metronidazole. Suspect we can d/c doxycycline tomorrow. Obtain sputum culture, PNA studies (legionella and strep urine antigens; mycoplasma sputum), though my strong impression is that this was due to aspiration. O2 requirement has resolved. Maintaining MAPs. (2) Acute respiratory failure with hypoxia: Start date: 08/29/22 Status: Resolved Assessment and plan: As above. Today, there is no evidence of bronchospasm. Ok to d/c steroids. (3) Sepsis: Start date: 08/29/22 Status: Acute Assessment and plan: Due to above As above Await blood and sputum culture results. Trend procalcitonin. Maintaining BPs. (4) COPD (chronic obstructive pulmonary disease): Status: Chronic Assessment and plan: On today's exam, there is no evidence of bronchospasm and the patient sounds completely clear. I feel comfortable d/c'ing the steroids. (5) Seizure disorder: Assessment and plan: C/s neurology. Continue vimpat + divalproex. Check levels. Check CPK. (6) Dementia: Assessment and plan: Continue donepezil and namenda. Monitor behaviors. (7) HTN (hypertension): Assessment and plan: Holding metoprolol due to borderline BPs. (8) CAD (coronary artery disease): Assessment and plan: No ACS on this admission. Echo pending due to an elevated proBNP, though not clinically fluid overloaded. (9) DVT prophylaxis: Status: Acute Assessment and plan: SC heparin (10) Discharge planning issues: Status: Acute Assessment and plan: Full code on admission, but previously DNR in our computer. C/s palliative care for clarification. C/s PT Subjective Subjective Interval history since last seen: Why am I here? Mr Mortensen states he feels well, denies dizziness, CP, SOB, n/v. He states he has not been coughing. He cannot tell me how often he gets seizures. He does not think he has a seizure doctor. He is on RA. MAP is 70 this am. Exam Narrative Exam Narrative: General: Pleasant elderly male who is [place], A&Ox3, eating breakfast, sitting comfortably in a chair HEENT: EOMI, MMM Heart: RRR, no m/r/g Lungs: CTAB Abdomen: soft, nontender, nondistended Extremities: trace edema BLEs Objective Last Vital Signs Temp 36.9 C 08/30/22 07:45 Pulse 60 08/30/22 08:03 Resp 19 08/30/22 08:03 BP 95/54 L 08/30/22 08:03 Pulse Ox 96 08/30/22 08:03 Laboratory Results - last 24 hr 08/29/22 08/29/22 08/29/22 14:12 14:23 14:23 WBC RBC Hgb Hct MCV MCH MCHC RDW Plt Count MPV Immature Gran % Neutrophils % Band Neutrophils % Lymphocytes % Monocytes % Eosinophils % Basophils % Nucleated RBC % Absolute Neutrophils Absolute Lymphocytes Absolute Monocytes Absolute Eosinophils Absolute Basophils RBC Morphology VBG pH VBG pCO2 VBG pO2 VBG HCO3 VBG Total CO2 VBG O2 Saturation VBG Base Excess VBG Lactate Sodium 144 Potassium 5.1 Chloride 105 Carbon Dioxide 27.1 Anion Gap 11.9 H BUN 24 H Creatinine 1.4 H Est GFR (CKD-EPI 2020) 48.95 Glucose 112 H Calcium 8.9 Magnesium 1.8 Total Bilirubin 0.9 AST 22 ALT 20 Alkaline Phosphatase 66 Troponin I < 50 NT-Pro-B Natriuret Pep Total Protein 6.7 Albumin 3.3 L Procalcitonin TSH 2.86 Urine Color Urine Clarity Urine pH Ur Specific Stanton Urine Protein Urine Ketones Urine Blood Urine Nitrite Urine Bilirubin Urine Urobilinogen Ur Leukocyte Esterase Urine RBC Urine WBC Ur Epithelial Cells Urine Crystals Urine Bacteria Urine Casts Urine Mucus Ur Culture Indicated? Urine Glucose Valproic Acid 61.7 COVID-19 Source SARS-CoV-2 (PCR) Influenza Type A (PCR) Influenza Type B (PCR) RSV (PCR) 08/29/22 08/29/22 08/29/22 14:23 14:23 15:15 WBC 17.68 H RBC 4.79 Hgb 15.1 Hct 44.6 MCV 93 MCH 31.5 MCHC 33.9 RDW 13.6 Plt Count 163 MPV 10.1 Immature Gran % 0.0 Neutrophils % 63.0 Band Neutrophils % 11 Lymphocytes % 11.0 Monocytes % 15.0 Eosinophils % 0.0 Basophils % 0.0 Nucleated RBC % 0.0 Absolute Neutrophils 13.08 H Absolute Lymphocytes 1.94 Absolute Monocytes 2.65 H Absolute Eosinophils 0.00 Absolute Basophils 0.00 RBC Morphology Normal VBG pH VBG pCO2 VBG pO2 VBG HCO3 VBG Total CO2 VBG O2 Saturation VBG Base Excess VBG Lactate Sodium Potassium Chloride Carbon Dioxide Anion Gap BUN Creatinine Est GFR (CKD-EPI 2020) Glucose Calcium Magnesium Total Bilirubin AST ALT Alkaline Phosphatase Troponin I NT-Pro-B Natriuret Pep 5754 H Total Protein Albumin Procalcitonin TSH Urine Color Urine Clarity Urine pH Ur Specific Stanton Urine Protein Urine Ketones Urine Blood Urine Nitrite Urine Bilirubin Urine Urobilinogen Ur Leukocyte Esterase Urine RBC Urine WBC Ur Epithelial Cells Urine Crystals Urine Bacteria Urine Casts Urine Mucus Ur Culture Indicated? Urine Glucose Valproic Acid COVID-19 Source Nasopharynx SARS-CoV-2 (PCR) Negative Influenza Type A (PCR) Negative Influenza Type B (PCR) Negative RSV (PCR) Negative 08/29/22 08/29/22 08/29/22 15:55 17:00 17:00 WBC RBC Hgb Hct MCV MCH MCHC RDW Plt Count MPV Immature Gran % Neutrophils % Band Neutrophils % Lymphocytes % Monocytes % Eosinophils % Basophils % Nucleated RBC % Absolute Neutrophils Absolute Lymphocytes Absolute Monocytes Absolute Eosinophils Absolute Basophils RBC Morphology VBG pH VBG pCO2 VBG pO2 VBG HCO3 VBG Total CO2 VBG O2 Saturation VBG Base Excess VBG Lactate 3.0 H* Sodium Potassium Chloride Carbon Dioxide Anion Gap BUN Creatinine Est GFR (CKD-EPI 2020) Glucose Calcium Magnesium Total Bilirubin AST ALT Alkaline Phosphatase Troponin I NT-Pro-B Natriuret Pep Total Protein Albumin Procalcitonin 14.8 TSH Urine Color Yellow Urine Clarity Clear Urine pH 6.0 Ur Specific Stanton 1.015 Urine Protein 30 H Urine Ketones 15 H Urine Blood Negative Urine Nitrite Negative Urine Bilirubin Small H Urine Urobilinogen 1.0 H Ur Leukocyte Esterase Negative Urine RBC 0-2 Urine WBC 0-2 Ur Epithelial Cells Rare Urine Crystals Negative Urine Bacteria Negative Urine Casts Negative Urine Mucus Negative Ur Culture Indicated? No Urine Glucose Negative Valproic Acid COVID-19 Source SARS-CoV-2 (PCR) Influenza Type A (PCR) Influenza Type B (PCR) RSV (PCR) 08/29/22 08/29/22 08/29/22 17:30 19:07 19:15 WBC RBC Hgb Hct MCV MCH MCHC RDW Plt Count MPV Immature Gran % Neutrophils % Band Neutrophils % Lymphocytes % Monocytes % Eosinophils % Basophils % Nucleated RBC % Absolute Neutrophils Absolute Lymphocytes Absolute Monocytes Absolute Eosinophils Absolute Basophils RBC Morphology VBG pH Cancelled 7.40 VBG pCO2 Cancelled 38 L VBG pO2 Cancelled 66 VBG HCO3 Cancelled 24 VBG Total CO2 Cancelled 22 L VBG O2 Saturation Cancelled 93 VBG Base Excess Cancelled -1 VBG Lactate Sodium Potassium Chloride Carbon Dioxide Anion Gap BUN Creatinine Est GFR (CKD-EPI 2020) Glucose Calcium Magnesium Total Bilirubin AST ALT Alkaline Phosphatase Troponin I < 50 NT-Pro-B Natriuret Pep Total Protein Albumin Procalcitonin TSH Urine Color Urine Clarity Urine pH Ur Specific Stanton Urine Protein Urine Ketones Urine Blood Urine Nitrite Urine Bilirubin Urine Urobilinogen Ur Leukocyte Esterase Urine RBC Urine WBC Ur Epithelial Cells Urine Crystals Urine Bacteria Urine Casts Urine Mucus Ur Culture Indicated? Urine Glucose Valproic Acid COVID-19 Source SARS-CoV-2 (PCR) Influenza Type A (PCR) Influenza Type B (PCR) RSV (PCR) 08/30/22 08/30/22 08/30/22 05:30 05:30 05:30 WBC 14.33 H RBC 3.98 L Hgb 12.2 L D Hct 36.7 L MCV 92 MCH 30.7 MCHC 33.2 RDW 13.9 Plt Count 123 L MPV 10.1 Immature Gran % Neutrophils % Band Neutrophils % Lymphocytes % Monocytes % Eosinophils % Basophils % Nucleated RBC % Absolute Neutrophils Absolute Lymphocytes Absolute Monocytes Absolute Eosinophils Absolute Basophils RBC Morphology VBG pH VBG pCO2 VBG pO2 VBG HCO3 VBG Total CO2 VBG O2 Saturation VBG Base Excess VBG Lactate 2.8 H* Sodium 145 Potassium 4.4 Chloride 110 H Carbon Dioxide 24.2 Anion Gap 10.8 BUN 26 H Creatinine 1.2 Est GFR (CKD-EPI 2020) 58.89 Glucose 112 H Calcium 7.9 L Magnesium Total Bilirubin 0.6 AST 19 ALT 14 L Alkaline Phosphatase 47 Troponin I NT-Pro-B Natriuret Pep 3511 H Total Protein 5.4 L Albumin 2.5 L Procalcitonin TSH Urine Color Urine Clarity Urine pH Ur Specific Stanton Urine Protein Urine Ketones Urine Blood Urine Nitrite Urine Bilirubin Urine Urobilinogen Ur Leukocyte Esterase Urine RBC Urine WBC Ur Epithelial Cells Urine Crystals Urine Bacteria Urine Casts Urine Mucus Ur Culture Indicated? Urine Glucose Valproic Acid COVID-19 Source SARS-CoV-2 (PCR) Influenza Type A (PCR) Influenza Type B (PCR) RSV (PCR) Time Spent with Patient Time Spent with Patient: 25-34 minutes Time was spent: preparing to see the patient(eg.review tests), obtaining and/or reviewing separately otained hiistory, ordering medications,tests, procedures, referring, communicating with other health healthcare administrator, indepentently interpreting results, counseling the patient and care coordination
[2022-08-30] MEDS: Citalopram 10 MG TAB 20 MG PO (08:42)
[2022-08-30] MEDS: Pantoprazole 40 MG TABCR PO (08:42)
[2022-08-30] MEDS: Tamsulosin 0.4 MG CAPCR PO (08:42)
[2022-08-30] MEDS: Multivitamin TAB 1 TAB PO (08:42)
[2022-08-30] MEDS: Atorvastatin 40 MG TAB PO (08:42)
[2022-08-30] MEDS: Aspirin E.C. 81 MG TABEC PO (08:42)
[2022-08-30] MEDS: Lacosamide 100 MG TAB PO ×2 (08:42→19:53)
[2022-08-30] MEDS: Donepezil 5 MG TAB 10 MG PO (08:42)
[2022-08-30] MEDS: Clopidogrel 75 MG TAB PO (08:42)
[2022-08-30] MEDS: Ketoconazole 2% CREAM 15 GM TUBE TP ×2 (08:43→19:53)
[2022-08-30] MEDS: Divalproex 250 MG TABEC 500 MG PO ×2 (08:43→19:53)
[2022-08-30] MEDS: metroNIDAZOLE 500 MG/100 ML BAG 100 MG IVPB ×3 (08:43→19:52)
[2022-08-30 08:52] LABS: Lab Add On Test DONE
[2022-08-30 09:05] LABS: Lactate 4.5 mmol/L (0.6-1.4)
[2022-08-30 09:05] LABS: Creatine Kinase 37 U/L (39-308)
[2022-08-30 09:24] LABS: VALPROIC ACID 73.3 ug/mL
[2022-08-30] MEDS: Lactated Ringers 1,000 ML 100 ML IV ×2 (09:25→21:31)
--- NOTE | 2022-08-30 10:04 | INITIAL_ITS ---
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 He descibes himself as being active and independent at baseline. His Aletha provides his transportation. He has 4 children, sharing that his daughter is a RN who lives in [place] and a son Jp who at 19 years old from a motorcycle accident. He also has 2 other adult children and shares that they have addiction to alcohol. CURRENT FUNCTIONAL STATUS:: Dimitrios is polite and engages in conversation, he enjoys watching sports. ADVANCE DIRECTIVES:: On file, [facility] is Aletha queenie Mortensen. agent is Cecilia Cortes. Has patient been provided with info about the portal/API?: Yes Did the patient sign up for the portal?: No CODE STATUS:: Full Code CODE STATUS COMMENT:: Change from DNI on admission; Palliative ordered. INSURANCE COVERAGE / FINANCIAL ISSUES:: AARP. Medicare CURRENT HOME/COMMUNITY SERVICES/EQUIPMENT:: [facility]. PRIMARY CARE PHYSICIAN:: Jordon Padron POTENTIAL DISCHARGE NEEDS:: Discharge plan, follow up appointments, assessment for increased community supports. PATIENT/FAMILY EDUCATION NEEDS:: Review discharge instructions, limitations, medications and plan to follow community providers. Review ask me three. TRANSPORTATION:: via private vehicle with PLAN:: Anticipate, Dimitrios will discharge home via private vehicle with Aletha. He will follow up with outpatient providers and his PCP. CM will continue follow. PFSH All Active Problems (Updated 08/30/22 @ 08:41 by Radha Herron MD) Discharge planning issues (Acute) DVT prophylaxis (Acute) Acute renal insufficiency (Acute) Septic shock (Acute) Sepsis (Acute) Pneumonia (Acute) COPD (chronic obstructive pulmonary disease) (Chronic) Breakthrough seizure (Acute) COVID-19 (Acute) Generalized weakness (Acute) Rib fractures (Acute) Medical History CAD (coronary artery disease) Dementia H/O non-insulin dependent diabetes mellitus HTN (hypertension) Hx of hyperlipidemia Kidney stones Lung cancer Myocardial infarction Seizure Seizure disorder UTI (urinary tract infection) Surgical History History of coronary artery stent placement History of tonsillectomy Family History Maternal Grandfather Leukemia Social History Smoking/Tobacco Use Status: Never Smoking risk assessment performed?: Yes Alcohol Intake: never Substance use type: does not use Do you feel safe at home: Yes Do you feel safe in your relationship?: Yes
[2022-08-30] MEDS: Lactated Ringers 500 ML IV (13:01)
--- NOTE | 2022-08-30 14:25 | IN_ITS ---
Date of service: 08/30/22 Time of Service: 14:05 PT Notes Visit Reasons: Acute Hyposic Respiratory Failure,Pneumonia,Sepsis Inpatient Physical Therapy Evaluation Date: 08/30/22 Referring Doctor: Radha Herron MD PT Orders: PT CONSULT: Limited ability Precautions: standard Patient Profile/Admitting Diagnosis: 87 y o male admitted for management of sepsis, pneumonia, breakthrough seizure, in setting of COPD. PMHX: All Active Problems? Acute renal insufficiency (Acute) Septic shock (Acute) Acute respiratory failure with hypoxia (Acute) Sepsis (Acute) Pneumonia (Acute) COPD (chronic obstructive pulmonary disease) (Chronic) Breakthrough seizure (Acute) COVID-19 (Acute) Generalized weakness (Acute) Rib fractures (Acute) Medical History? CAD (coronary artery disease) Dementia H/O non-insulin dependent diabetes mellitus HTN (hypertension) Hx of hyperlipidemia Kidney stones Lung cancer Myocardial infarction Seizure Seizure disorder UTI (urinary tract infection) Surgical History? History of coronary artery stent placement History of tonsillectomy Social History/Home Situation: Lives in a private home with his , multi [facility], but resides primarily on one level with ramp to enter with rail. 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 Daughter in [place], who is present with today, son in [place], and son in [place]. Uses cane occasionally, when he remembers, no history of falls. Current Functional Limitations: Supervision for ambulation and transfers Equipment Owned/DME: Cane Subjective: No pain, feels normal. Has been transferring in the room w nursing w out any difficulty. Objective: General Observation: IV bilateral cubitol fossa, telemetry Mental Status: Slight confusion due to dementia, [place] causing some confusion, alert to person, place and time Pain: 0/10 Vital Signs: BP 127/59, HR 75, O2 saturation 96% on room air ROM: Right Upper Extremity: Grossly WFL Left Upper Extremity: Grossly WFL Right Lower Extremity: Grossly WFL Left Lower Extremity: Grossly WFL Strength: Right Upper Extremity: Grossly 4/5 shoulders flex and abd, otherwise 4+/5 distally Left Upper Extremity: Grossly 4-/5 abduction, flex 4/5, otherwise 4+/5 distally Right Lower Extremity: WNL Left Lower Extremity: WNL Sensation: intact to light touch throughout Bed Mobility/Transfers: Close supervision with STS, chair to bed, bed to chair no AD. Gait: 50 ft, IV pole assist, but because it was necessary. CG out of precaution, but close supervision appropriate Balance: Static Sitting: Good Dynamic Sitting: Good Static Standing: Fair Dynamic Standing: Fair Stage 4 Balance Test Time (seconds) Feet together 10 Partial tandem 10 Tandem 3 One foot 2 Special Tests: Mobility Limitations Standardized Measure [facility] AM-PAC 6 clicks Basic Mobility Inpatient Short Form: 20% disability Informed Consent/Education: Patient instructed in purpose of PT consult and plan of care. Assessment: Patient is a 87 year old male referred to physical therapy services with the diagnosis of pneumonia in setting of breakthrough seizure, sepsis, and COPD. Patient presents with clinical signs and symptoms consistent with mild instability given medical course, as demonstrated by the following impairment level findings: mild balance deficit in absence of fall history. Impairments are contributing to the following functional limitations: Appropriate age related weakness, supervision for transfers and ambulation. AMPAC score 20% disa bility. Requires in patient PT service to insure progression to distant supervision with safety and provide skilled strengthening to limit deconditioning and functional loss during impatient admission, with strict monitoring of vitals in the process due to medical complications. Patient is assessed as a x Low 20345 complexity based on the following: History: See comorbidities Examination: See assessment Presentation: Stable, from PT perspective Decision Making: Easy Goals: Goals X1 week 1. Supine-Sit independent 2. Sit-Supine independent 3. Sit-Stand independent 4. Stand-Sit independent 5. Bed-Chair independent 6. Chair-Bed independent 7. Gait 50 ft, no AD, independent 8. Ramp independent 9. Independent with home exercise program 10. Steady gait and dynamic movement with all tasks Plan of Care/Treatment Plan: 1-2x/day, 7 days/week x 1 week. Plan of care has been reviewed with the [employer] INSPECTOR providing the service under Physical Therapy direction. Initiate Physical Therapy intervention for strengthening, bed mobility, transfers, gait, stairs, balance training, use of assistive device. DISCHARGE RECOMMENDATIONS: Home with family supervision Home with no services TREATMENT CODE/TIME: 95554, 30 min, 2:05-2:35
--- NOTE | 2022-08-30 15:23 | PCNE_ITS ---
Date of service: 08/30/22 Time of Service: 15:23 History of Present Illness Narrative: From H and P History of Present Illness History of Present Illness?Chief Complaint: Breakthrough seizure at home with decreased oral intake.?Narrative: This is an 87-year-old male patient who has advancing dementia on medical therapy who has also breakthrough seizures with seizure disorder which are not uncommon.? He states that whenever he has seizures his gets nervous.? He had such seizure the day of presentation and in the ED evaluation was found to have a probable lobar pneumonia by CT and had associated hypoxemia which was corrected with O2 supplementation.? During his ED evaluation he also had hypotension which responded to IV fluids with slight increase in his creatinine with decreased intake the day of admission because of his postseizure state though he was not postictal.? He remembers not eating or drinking well because he did not feel hungry or thirsty.? He denies any cough or fevers.? He had no headache and had no trauma from his seizure.? The patient offers no further history and his was not available during my interview.? He is a full code.? He was previously a DNR and Perative care needs to be consulted during his hosp ital stay. ? INTERIM HISTORY During the last 12 hours and had multiple lactate tests. His numbers are going up. He has another lab test do soon. I am meeting with Ed and his of 69 years. His talked about how he has frontal lobe degenerative disease. She said it is not dementia. She does get short sometimes with his lack of memory and linear thinking. She said he was doing pretty good until the day he was brought to the hospital. He had a seizure which she knows is common for him. He also had no memory of his time around the time of seizure which also is common for him. He came into the emergency room was hypotensive with high pro calcitonin and lactate. In the emergency room the physician did talk to his about possible impending . He was admitted placed on IV fluids, oxygen, found to have a probable pneumonia and treated with antibiotics. There was some confusion around his CODE STATUS. He has been both DNR and full code, presently full code. I am meeting with Ed and his . Ed is sitting up in his chair his feet are in warm water. He answers questions and knows where he is. I explained my reason for being there was to help to clarify his CODE STATUS. I did have a copy of his advance directives dated 2019. This was prior to his frontal lobe degenerative disease. We talked about CPR and what it entails. We also talked about advanced directives might be appropriate for 1 stage of the person's life but need to be redone as life progresses. Assessment and Plan Assessment and plan (1) Acute renal insufficiency: Status: Acute (2) Septic shock: Status: Acute (3) Acute respiratory failure with hypoxia: Status: Resolved (4) Palliative care patient: Status: Acute Assessment and plan: Aletha, Ed and I spoke for about 60 minutes. We talked about what CPR is, its risks and benefits. We talked about the changing nature of advance directives and how as people have more problems and get older that what they thought originally may or may not be appropriate for the present. Twice when I talked about CPR and he said he was not interested in that. Once he said if it is my time it is my time let me go another time he said something similar but not exactly that. When I looked at him and said do you want CPR his reply was no. Although Ed does not have capacity and all things he appeared to understand what CPR was and that if he did not have it in his lungs were not working nor his heart that he would , he opted for that rather than to have CPR. Aletha felt overwhelmed with the decision. She wanted to talk to her daughter who is a nurse. She admits that her daughter does not always see eye to eye with her and so she has some reservations about talking with her daughter about this. She felt strongly that she and her should discuss this when he gets home. Aletha has not slept well for about 36 hours. She felt overwhelmed with the information that her was in dire straits. She did not feel she could make any decisions at this time. It was also confusing because although she was told that he probably would not recover from this admission, he was sitting up in a chair joking and remembering the past clearly. I did give Aletha a copy of the COLST form. We talked about what was reasonable and what was not. I did ask the box for DO NOT RESUSCITATE as that was what add said he wanted. We also talked about feeding tubes and there use and when they were not helpful i.e. dementia. We talked about IV hydration and how it seems reasonable to continue that on a trial basis but not indefinitely. We also talked about antibiotics. He has that he does not want an antibiotics that he is terminal. His explained to me that he is not terminal at this time and so he would still want some. He is presently getting 3 antibiotics I offered to come back tomorrow morning. Aletha felt that that was too soon and she needed more time to process things. I did offer to come back on and talk with her more. She still felt like that might be too soon that she needs to talk with Ed at home once he is well to determine what he wants. Ironically Aletha herself said that she thinks she would want a DO NOT RESUSCITATE form completed on herself. At this time I will plan to come back on to meet with Alteha and add. It is doubtful that he will be discharged by then. If he is I will ask if they would like a home visit. Harmeet and Aletha are an absolutely gissel couple. They have been since he was 17. They have been for 69 years and has had some ups and downs but they been able to rally and get through them. Thank you very much for this consult. I did speak to Dr. Rankin about their ideas. I do want to note that his lactate is going down as of the evening lab draw Review of Systems Narrative: Ed states that he is feeling much better. He is able to answer many of my q uestions. He wonders about the socks on his feet (his feet are in warm water) [facility] All Active Problems (Updated 08/31/22 @ 07:43 by Eli Campbell MD, [place]) Palliative care patient (Acute) Discharge planning issues (Acute) DVT prophylaxis (Acute) Acute renal insufficiency (Acute) Septic shock (Acute) Sepsis (Acute) Pneumonia (Acute) COPD (chronic obstructive pulmonary disease) (Chronic) Breakthrough seizure (Acute) COVID-19 (Acute) Generalized weakness (Acute) Rib fractures (Acute) Medical History CAD (coronary artery disease) Dementia H/O non-insulin dependent diabetes mellitus HTN (hypertension) Hx of hyperlipidemia Kidney stones Lung cancer Myocardial infarction Seizure Seizure disorder UTI (urinary tract infection) Surgical History History of coronary artery stent placement History of tonsillectomy Family History Maternal Grandfather Leukemia Social History Smoking/Tobacco Use Status: Never Smoking risk assessment performed?: Yes Alcohol Intake: never Substance use type: does not use Do you feel safe at home: Yes Do you feel safe in your relationship?: Yes Exam Narrative Exam Narrative: Conversant 87-year-old male. He is able to tell me about his past life and a little bit about his disease. He is accurate with much of what he says. He no longer has oxygen on. Twice he felt that the water his feet were and were actu ally his socks. He is not tachycardic. The O2 monitor was changed during our talk. He taps his fingers regularly and it no longer picks up accurately. Results Last Vital Signs Temp 98.4 F 08/30/22 12:31 Pulse 61 08/30/22 14:22 Resp 17 08/30/22 14:45 BP 127/59 L 08/30/22 14:22 Pulse Ox 85 L 08/30/22 14:45 Laboratory Tests 06/04/22 08/29/22 08/29/22 05:18 14:23 15:55 WBC 3.69 L 17.68 H Hct 44.6 VBG Lactate Creatinine Calcium NT-Pro-B Natriuret Pep Albumin Ur Culture Indicated? No Valproic Acid 08/30/22 08/30/22 08/30/22 05:30 05:30 05:30 WBC 14.33 H Hct 36.7 L VBG Lactate 2.8 H* Creatinine 1.2 Calcium 7.9 L NT-Pro-B Natriuret Pep 3511 H Albumin 2.5 L Ur Culture Indicated? Valproic Acid 08/30/22 08/30/22 08/30/22 08:55 08:55 12:00 WBC Hct VBG Lactate 4.5 H* 5.0 H* Creatinine Calcium NT-Pro-B Natriuret Pep Albumin Ur Culture Indicated? Valproic Acid 73.3 C/A/P CT FINDINGS: CHEST: LUNGS: There is prominent patchy infiltrate in the right upper lobe.? Increased markings in the basal segments of the right lower lobe are unchanged from 05/13/2022.? No new findings in the opposite-left lung.? No pleural effusions on either side MEDIASTINUM: There is no hilar nor mediastinal adenopathy. Visualized thyroid unremarkable. CARDIAC: Heart size is normal.? There is no pericardial effusion.Caliber of the thoracic aorta is within normal limits. OSSEOUS: T5 compression fracture which was not evident on lateral chest x-ray of December 2019 but appears to have been present on chest x-ray of February 2021. ABDOMEN: There is no ascites. LIVER: Again noted is a previously described right hepatic lobe hemangioma which measures approximately 2.5 x 2.3 cm.? No additional focal hepatic findings nor dilatation of intrahepatic ducts.? GALLBLADDER/BILIARY: Gallbladder is difficult to assess because of motion artifact but there are no obvious radiopaque calculi and the gallbladder is not distended nor grossly edematous.? CBD is not dilated. PANCREAS: No evidence of pancreatic mass nor dilatation of the pancreatic duct.? SPLEEN: Spleen is not enlarged. There are no intrasplenic lesions.? Splenic and portal veins are patent. ADRENALS: There are no significant adrenal masses. KIDNEYS: Nonobstructive calculi again noted in the right kidney.? No hydronephrosis on either side.? No calculi in left kidney.? Ureters not dilated..? There is uniform thickening of the urinary bladder wall consistent with probable chronic cystitis.? There is no gas within the bladder wall.? No radiopaque calculi in the bladder lumen. ABDOMINAL AORTA: Calcified but not enlarged. LYMPH NODES: There is no retroperitoneal nor paraaortic adenopathy. ABDOMINAL WALL: No evidence of significant anterior abdominal wall nor inguinal hernia.? GI: There is no evidence of bowel obstruction. PELVIS:? LYMPH NODES: There is no intrapelvic nor inguinal adenopathy. GI: No evidence of appendicitis.Sigmoid diverticuli but no evidence of obvious acute diverticulitis. URINARY BLADDER: Diffusely thickened bladder wall. REPRODUCTIVE: Prostate size upper normal.? Seminal vesicles unremarkable. OSSEOUS: No significant osseous lesions. IMPRESSION: 1. There is prominent patchy infiltrate in the right upper lobe.? Consistent with pneumonia.? No pleural effusions.? No obvious intrathoracic adenopathy. 2. T5 compression fracture which was evident on chest x-ray of 02/20/2021 but not on chest x-ray of 12/18/2019 3. Stable nonobstructive calculi in the right kidney again noted. 4. Diffuse thickening of the urinary bladder wall consistent with chronic cystitis.? Prostate gland size appears upper normal.? No urinary bladder distension or diverticuli evident.? No radiopaque calculi evident in the urinary bladder lumen. 5.? Sigmoid diverticulosis with no evidence of acute diverticulitis. Laboratory Tests 08/30/22 16:55 VBG Lactate 4.2 H* Labs 08/31/22 06:00 08/30/22 05:30 Labs: Laboratory Results - last 24 hr 08/29/22 08/29/22 08/29/22 14:12 14:23 15:15 WBC RBC Hgb Hct MCV MCH MCHC RDW Plt Count MPV VBG pH VBG pCO2 VBG pO2 VBG HCO3 VBG Total CO2 VBG O2 Saturation VBG Base Excess VBG Lactate Sodium Potassium Chloride Carbon Dioxide Anion Gap BUN Creatinine Est GFR (CKD-EPI 2020) Glucose Calcium Total Bilirubin AST ALT Alkaline Phosphatase Creatine Kinase Troponin I < 50 NT-Pro-B Natriuret Pep 5754 H Total Protein Albumin Procalcitonin Urine Color Urine Clarity Urine pH Ur Specific Holcomb Urine Protein Urine Ketones Urine Blood Urine Nitrite Urine Bilirubin Urine Urobilinogen Ur Leukocyte Esterase Urine RBC Urine WBC Ur Epithelial Cells Urine Crystals Urine Bacteria Urine Casts Urine Mucus Ur Culture Indicated? Urine Glucose Valproic Acid COVID-19 Source Nasopharynx SARS-CoV-2 (PCR) Negative Influenza Type A (PCR) Negative Influenza Type B (PCR) Negative RSV (PCR) Negative Add-On Test Request 08/29/22 08/29/22 08/29/22 15:55 17:00 17:00 WBC RBC Hgb Hct MCV MCH MCHC RDW Plt Count MPV VBG pH VBG pCO2 VBG pO2 VBG HCO3 VBG Total CO2 VBG O2 Saturation VBG Base Excess VBG Lactate 3.0 H* Sodium Potassium Chloride Carbon Dioxide Anion Gap BUN Creatinine Est GFR (CKD-EPI 2020) Glucose Calcium Total Bilirubin AST ALT Alkaline Phosphatase Creatine Kinase Troponin I NT-Pro-B Natriuret Pep Total Protein Albumin Procalcitonin 14.8 Urine Color Yellow Urine Clarity Clear Urine pH 6.0 Ur Specific Holcomb 1.015 Urine Protein 30 H Urine Ketones 15 H Urine Blood Negative Urine Nitrite Negative Urine Bilirubin Small H Urine Urobilinogen 1.0 H Ur Leukocyte Esterase Negative Urine RBC 0-2 Urine WBC 0-2 Ur Epithelial Cells Rare Urine Crystals Negative Urine Bacteria Negative Urine Casts Negative Urine Mucus Negative Ur Culture Indicated? No Urine Glucose Negative Valproic Acid COVID-19 Source SARS-CoV-2 (PCR) Influenza Type A (PCR) Influenza Type B (PCR) RSV (PCR) Add-On Test Request 08/29/22 08/29/22 08/29/22 17:30 19:07 19:15 WBC RBC Hgb Hct MCV MCH MCHC RDW Plt Count MPV VBG pH Cancelled 7.40 VBG pCO2 Cancelled 38 L VBG pO2 Cancelled 66 VBG HCO3 Cancelled 24 VBG Total CO2 Cancelled 22 L VBG O2 Saturation Cancelled 93 VBG Base Excess Cancelled -1 VBG Lactate Sodium Potassium Chloride Carbon Dioxide Anion Gap BUN Creatinine Est GFR (CKD-EPI 2020) Glucose Calcium Total Bilirubin AST ALT Alkaline Phosphatase Creatine Kinase Troponin I < 50 NT-Pro-B Natriuret Pep Total Protein Albumin Procalcitonin Urine Color Urine Clarity Urine pH Ur Specific Holcomb Urine Protein Urine Ketones Urine Blood Urine Nitrite Urine Bilirubin Urine Urobilinogen Ur Leukocyte Esterase Urine RBC Urine WBC Ur Epithelial Cells Urine Crystals Urine Bacteria Urine Casts Urine Mucus Ur Culture Indicated? Urine Glucose Valproic Acid COVID-19 Source SARS-CoV-2 (PCR) Influenza Type A (PCR) Influenza Type B (PCR) RSV (PCR) Add-On Test Request 08/30/22 08/30/22 08/30/22 05:30 05:30 05:30 WBC 14.33 H RBC 3.98 L Hgb 12.2 L D Hct 36.7 L MCV 92 MCH 30.7 MCHC 33.2 RDW 13.9 Plt Count 123 L MPV 10.1 VBG pH VBG pCO2 VBG pO2 VBG HCO3 VBG Total CO2 VBG O2 Saturation VBG Base Excess VBG Lactate 2.8 H* Sodium 145 Potassium 4.4 Chloride 110 H Carbon Dioxide 24.2 Anion Gap 10.8 BUN 26 H Creatinine 1.2 Est GFR (CKD-EPI 2020) 58.89 Glucose 112 H Calcium 7.9 L Total Bilirubin 0.6 AST 19 ALT 14 L Alkaline Phosphatase 47 Creatine Kinase Troponin I NT-Pro-B Natriuret Pep 3511 H Total Protein 5.4 L Albumin 2.5 L Procalcitonin Urine Color Urine Clarity Urine pH Ur Specific Holcomb Urine Protein Urine Ketones Urine Blood Urine Nitrite Urine Bilirubin Urine Urobilinogen Ur Leukocyte Esterase Urine RBC Urine WBC Ur Epithelial Cells Urine Crystals Urine Bacteria Urine Casts Urine Mucus Ur Culture Indicated? Urine Glucose Valproic Acid COVID-19 Source SARS-CoV-2 (PCR) Influenza Type A (PCR) Influenza Type B (PCR) RSV (PCR) Add-On Test Request 08/30/22 08/30/22 08/30/22 05:30 05:30 08:55 WBC RBC Hgb Hct MCV MCH MCHC RDW Plt Count MPV VBG pH VBG pCO2 VBG pO2 VBG HCO3 VBG Total CO2 VBG O2 Saturation VBG Base Excess VBG Lactate 4.5 H* Sodium Potassium Chloride Carbon Dioxide Anion Gap BUN Creatinine Est GFR (CKD-EPI 2020) Glucose Calcium Total Bilirubin AST ALT Alkaline Phosphatase Creatine Kinase 37 L Troponin I NT-Pro-B Natriuret Pep Total Protein Albumin Procalcitonin Urine Color Urine Clarity Urine pH Ur Specific Holcomb Urine Protein Urine Ketones Urine Blood Urine Nitrite Urine Bilirubin Urine Urobilinogen Ur Leukocyte Esterase Urine RBC Urine WBC Ur Epithelial Cells Urine Crystals Urine Bacteria Urine Casts Urine Mucus Ur Culture Indicated? Urine Glucose Valproic Acid COVID-19 Source SARS-CoV-2 (PCR) Influenza Type A (PCR) Influenza Type B (PCR) RSV (PCR) Add-On Test Request DONE 08/30/22 08/30/22 08:55 12:00 WBC RBC Hgb Hct MCV MCH MCHC RDW Plt Count MPV VBG pH VBG pCO2 VBG pO2 VBG HCO3 VBG Total CO2 VBG O2 Saturation VBG Base Excess VBG Lactate 5.0 H* Sodium Potassium Chloride Carbon Dioxide Anion Gap BUN Creatinine Est GFR (CKD-EPI 2020) Glucose Calcium Total Bilirubin AST ALT Alkaline Phosphatase Creatine Kinase Troponin I NT-Pro-B Natriuret Pep Total Protein Albumin Procalcitonin Urine Color Urine Clarity Urine pH Ur Specific Holcomb Urine Protein Urine Ketones Urine Blood Urine Nitrite Urine Bilirubin Urine Urobilinogen Ur Leukocyte Esterase Urine RBC Urine WBC Ur Epithelial Cells Urine Crystals Urine Bacteria Urine Casts Urine Mucus Ur Culture Indicated? Urine Glucose Valproic Acid 73.3 COVID-19 Source SARS-CoV-2 (PCR) Influenza Type A (PCR) Influenza Type B (PCR) RSV (PCR) Add-On Test Request
[2022-08-30] MEDS: cefTRIAXone 1 GM/50 ML BAG IVPB (16:04)
[2022-08-30 17:11] LABS: Lactate 4.2 mmol/L (0.6-1.4)
[2022-08-30] MEDS: Docusate Sodium 100 MG CAP PO (19:53)
[2022-08-30] MEDS: guaiFENesin 600 MG TABCR PO (19:54)
[2022-08-30] MEDS: Memantine 5 MG TAB PO (21:32)
[2022-08-31] VITALS (46 sets, daily range): BP systolic 84–153; BP diastolic 47–83; PULSE 45–85; RESP 5–29; TEMP 36.2–37; O2SAT 92–98
[2022-08-31] MEDS: metroNIDAZOLE 500 MG/100 ML BAG 100 MG IVPB ×4 (03:58→20:03)
[2022-08-31] MEDS: DOXYCYCLINE 100 MG in Normal Saline 100 ML IVPB (03:59)
[2022-08-31] MEDS: Heparin 5,000 UNITS/ML VIAL 5000 UNITS SC ×3 (05:46→21:08)
[2022-08-31 06:29] LABS: Abs Immature Grans 0.11 10^3/uL (0.0-0.06); Absolute Basophil Count 0.01 10^3/uL (0.0-0.2); Absolute Lymphocyte Count 0.96 10^3/uL (1.2-3.4); Absolute Monocyte Count 1.15 10^3/uL (0.1-0.8); Absolute Neutrophil Count 9.88 10^3/uL (1.2-6.7); Basophils % 0.1; HCT 35.1 % (40.0-50.0); HGB 11.6 g/dL (13.5-17.5); Immature Grans % 0.9; Lymphocytes % 7.9; MCH 30.6 pg (27.0-33.0); MCV 93 fL (80-95); MPV 10.4 fL (8.0-11.0); Monocytes % 9.5; Neutrophils % 81.6; Platelet Count 136 10^3/uL (130-400); RBC 3.79 10^6/uL (4.36-5.78); RDW-SD 47.7 fL; WBC 12.11 10^3/uL (4.4-10.8)
[2022-08-31 06:50] LABS: Iron 36 ug/dL (65-175); Total Iron Binding Capacity 248 ug/dL (250-450); Transferrin Sat 15 % (20-55)
[2022-08-31 07:24] LABS: Anion Gap 7.4 mmol/L (3-11); BUN 24 mg/dL (7-18); CO2 28.6 mmol/L (21.0-32.0); CREATININE 0.9 mg/dL (0.70-1.30); Calcium 7.8 mg/dL (8.5-10.1); Chloride 107 mmol/L (98-107); Estimated GFR 83.18 (mL/min/1.73m2); Ferritin 173 ng/mL (26-388); Folate 17.4 ng/mL (8.6-20.0); Glucose 110 mg/dL (74-106); Potassium 4.1 mmol/L (3.5-5.1); Sodium 143 mmol/L (136-145); Vitamin B12 544 pg/mL (193-986)
[2022-08-31 07:41] LABS: C-Reactive Protein 9.12 mg/dL (0.0-0.3)
--- NOTE | 2022-08-31 08:00 | DI.US_ITS ---
APPROVED REPORT EXAM: Comprehensive 2D, Doppler, and color-flow Echocardiogram Patient Location: In-Patient Room/Bed: [address] Operator: Chauncey Bueno RDMS, [place] Indications: hypoxemia, COPD, HTN, CAD Other Information Study Quality: Adequate Conclusion Normal left ventricular wall thickness and chamber size. Ejection fraction is 55%. Wall motion is n ormal Right ventricle is mildly dilated. Right ventricular systolic function appears grossly normal The right atrium is mildly dilated. Left atrial size is normal Aortic valve is sclerotic and trileaflet with mild regurgitation. There is no hemodynamically signif icant aortic stenosis Normal mitral valve with mild regurgitation Normal tricuspid valve with moderate regurgitation. Estimated right ventricular systolic pressure is 44 mmHg Wall motion Left Ventricle The left ventricle is normal size. The left ventricular systolic function is normal. The left ventric ular ejection fraction is within the normal range. There is normal left ventricular wall thickness. T here is normal LV segmental wall motion. There is no ventricular septal defect visualized. LVEF is 55 %. Right Ventricle Right ventricle is mildly dilated. Right ventricular systolic function is grossly normal. The RVSP is 44.3 mmHg. Atria The left atrium size is normal. Right atrium is mildly dilated. The interatrial septum is intact with no evidence for an atrial septal defect. Aortic Valve The Aortic valve is sclerotic. Aortic valve is trileaflet. There is no aortic valvular stenosis. Mild aortic regurgitation. Mitral Valve The mitral valve is normal in structure. No evidence of mitral valve stenosis. Mild mitral regurgitat ion. Tricuspid Valve The tricuspid valve is normal in structure. There is no tricuspid valve stenosis. Moderate tricuspid regurgitation. Pulmonic Valve Pulmonic valve is not well visualized. There is no pulmonic valvular stenosis. Trace pulmonic regurgi tation. Great Vessels The aortic root is normal in size. Ascending aorta is not well visualized. Aortic arch is not well vi sualized. IVC is normal in size and collapses >50% with inspiration. Pericardium There is no pericardial effusion. 2D Dimensions IVSD d PLAX 0.58 cm M: 0.6-1.2 LV Vol A2C d MOD 57.2 mL LVPW d PLAX 0.60 cm M: 0.6 - 1.2 LV Vol A4C d MOD 50.8 mL LVID d PLAX 4.73 cm M: 4.2 - 5.8 LA vol/ BSA A4C s A-L 15.7 mL/m2 LVDs 3.50 cm M: 2.5 - 4.0 LA Area A4C s MOD 12.77 cm2 Ao Root d 2.60 cm M: 3.1 - 3.7 LV EF A4C MOD 53.5 % LV EF Teichholz 49.9 % LV EF A2C MOD 53.5 % LVEF (Craig's) 52.13 % M: 52 - 72 LV EF Biplane MOD 52.1 % LV Volume 43.75 mL M: 62 - 150 SV 29.09 mL LV Volume Index 24.85 mL/m2 M: 34 - 74 SV Index 16.52 mL/m2 LV Vol Biplane MOD 55.8 mL FS 25.25 % LV Diastology MV E' medial 0.130 (>0.07 m/s) E/A Ratio 1.0 LV E/e MED 6.45 (<14) MV E Vmax 0.84 (0.4-1.3 m/s) MV E' lateral 0.143 (>0.1 m/s) MV A Vmax 0.85 (0.4-1.3 m/s) LV E/e LAT 5.85 (<14) MV E/A Ratio 0.97 MV E/E' medial 6.47 MV E/E' lateral 5.88 Aortic Valve LVOT Area 3.19 cm2 AoV Area Vmax 1.80 cm2 LVOT Vmax 1.03 m/s AoV Area/ BSA (Vmax) 1.02 cm2/m2 LVOT Mean Adama. 0.73 m/s LALITHA Mean Adama. 2.04 cm2 LVOT Peak Grad 4.3 mmHg LALITHA Mean Adama. Index 1.16 cm2/m2 LVOT Mean Grad 2.4 mmHg AR DT 2684 msec LVOT VTI 0.281 m AR PHT 778 msec LVOT Diam s 2.00 cm AoV Vmax 1.83 m/s Velocity Ratio 0.56 AoV Mean Adama. 1.14 m/s AoV Peak Grad 13.4 mmHg LVOT SV 89.83 mL AoV Mean Grad 6.2 mmHg AoV VTI 0.402 m AoV Area VTI 2.23 cm2 AoV Area/ BSA (VTI) 1.27 cm/m2 Mitral Valve MV DT 215 (160-240 msec) MV PHT 62 msec MV Area PHT 3.53 cm2 MV VTI 0.357 m MV Area VTI 2.51 (4.0-6.0 cm2) Pulmonary Valve PV Vmax 1.23 (0.5-1.5 m/s) RVOT Peak Gr. 1.04 mmHg PV Peak Grad 6.1 mmHg RVOT Mean Gr. 0.50 mmHg PV Mean Grad 3.4 mmHg RVOT VTI 0.112 m PV VTI 0.292 m RVOT Vmax 0.51 m/s Tricuspid Valve TR Peak Grad 41.2 mmHg TR Vmax 3.21 m/s RA Pressure 3.00 mmHg RVSP (TR) 44.3 mmHg
[2022-08-31] MEDS: Tamsulosin 0.4 MG CAPCR PO (08:45)
[2022-08-31] MEDS: Divalproex 250 MG TABEC 500 MG PO ×2 (08:45→20:02)
[2022-08-31] MEDS: Clopidogrel 75 MG TAB PO (08:45)
[2022-08-31] MEDS: Multivitamin TAB 1 TAB PO (08:45)
[2022-08-31] MEDS: Citalopram 10 MG TAB 20 MG PO (08:45)
[2022-08-31] MEDS: guaiFENesin 600 MG TABCR PO ×2 (08:45→20:02)
[2022-08-31] MEDS: Atorvastatin 40 MG TAB PO (08:46)
[2022-08-31] MEDS: Lacosamide 100 MG TAB PO ×2 (08:46→20:02)
[2022-08-31] MEDS: Pantoprazole 40 MG TABCR PO (08:46)
[2022-08-31] MEDS: Aspirin E.C. 81 MG TABEC PO (08:46)
[2022-08-31] MEDS: Donepezil 5 MG TAB 10 MG PO (08:47)
[2022-08-31] MEDS: Ipratropium/Albuterol 4 GM 120 PUFF INH IH ×3 (08:56→20:05)
[2022-08-31 09:02] LABS: Lactate 1.8 mmol/L (0.6-1.4)
[2022-08-31] MEDS: Lactated Ringers 1,000 ML 100 ML IV (10:00)
--- NOTE | 2022-08-31 10:57 | PGE_ITS ---
Date of Service Date of service: 08/31/22 Time of Service: 10:57 Assessment and Plan Assessment and plan (1) Pneumonia: Start date: 08/29/22 Status: Acute Assessment and plan: RUL PNA in setting of a seizure - suspected aspiration PNA. On ceftriaxone/metronidazole and doxycyclien. D/c doxycycline. (2) Acute respiratory failure with hypoxia: Start date: 08/29/22 Status: Resolved Assessment and plan: As above. He is wheezy today but also fluid overloaded. D/c IVF and give a dose of furosemide 20 mg IV x 1. I had also requested that the patient get albuterol. If he remains wheezy after that, there could be a role for re-introduction of steroids. (3) Sepsis: Start date: 08/29/22 Status: Acute Assessment and plan: Due to above As above Blood cx NGTD. Sputum C&S pending. Trend procalcitonin. Maintaining BPs. (4) COPD (chronic obstructive pulmonary disease): Status: Chronic Assessment and plan: As above May require reintroduction of steroids. (5) Seizure disorder: Assessment and plan: Await neurology c/s. Continue vimpat + divalproex. I had increased the dose of depakote; however, it now turns out that the patient was not taking vimpat at home - had a 30 day supply filled in May. Will await further recommendations. (6) Dementia: Assessment and plan: Continue donepezil and namenda. Monitor behaviors. (7) HTN (hypertension): Assessment and plan: May be able to resume metoprolol today if BPs still adequate after diuresis. (8) CAD (coronary artery disease): Assessment and plan: No ACS on this admission. Echo done;read pending. (9) DVT prophylaxis: Status: Acute Assessment and plan: SC heparin (10) Discharge planning issues: Status: Acute Assessment and plan: Full code Seen by palliative care. Subjective Subjective Interval history since last seen: Feels better. Denies dizziness, CP, SOB, n/v. It appears that the last time Vimpat was filled was on 06/04/22 x 30 day supply, and it was never refilled. No seizures here. Exam Narrative Exam Narrative: General: Pleasant elderly male who is HO-CHUNK, A&Ox3, sitting up in bed HEENT: EOMI, MMM Heart: RRR, no m/r/g Lungs: crackles at B bases, scattered rhonchi, but especially so in RUL. Abdomen: soft, nontender, nondistended Extremities: trace edema BLEs Objective Last Vital Signs Temp 36.2 C L 08/31/22 06:00 Pulse 50 L 08/31/22 06:00 Resp 20 08/31/22 07:00 BP 133/59 L 08/31/22 06:00 Pulse Ox 94 08/31/22 07:00 Laboratory Results - last 24 hr 08/30/22 08/30/22 08/31/22 12:00 16:55 06:00 WBC RBC Hgb Hct MCV MCH MCHC RDW Plt Count MPV Immature Gran % Neutrophils % Lymphocytes % Monocytes % Eosinophils % Basophils % Nucleated RBC % Absolute Neutrophils Absolute Lymphocytes Absolute Monocytes Absolute Eosinophils Absolute Basophils VBG Lactate 5.0 H* 4.2 H* Sodium 143 Potassium 4.1 Chloride 107 Carbon Dioxide 28.6 Anion Gap 7.4 BUN 24 H Creatinine 0.9 Est GFR (CKD-EPI 2020) 83.18 Glucose 110 H Calcium 7.8 L Magnesium 2.0 Iron TIBC Transferrin % Sat Ferritin 173 C-Reactive Protein 9.12 H Vitamin B12 544 Folate 17.4 08/31/22 08/31/22 08/31/22 06:00 06:00 08:42 WBC 12.11 H RBC 3.79 L Hgb 11.6 L Hct 35.1 L MCV 93 MCH 30.6 MCHC 33.0 RDW 14.0 Plt Count 136 MPV 10.4 Immature Gran % 0.9 Neutrophils % 81.6 Lymphocytes % 7.9 Monocytes % 9.5 Eosinophils % 0.0 Basophils % 0.1 Nucleated RBC % 0.0 Absolute Neutrophils 9.88 H Absolute Lymphocytes 0.96 L Absolute Monocytes 1.15 H Absolute Eosinophils 0.00 Absolute Basophils 0.01 VBG Lactate 1.8 H Sodium Potassium Chloride Carbon Dioxide Anion Gap BUN Creatinine Est GFR (CKD-EPI 2020) Glucose Calcium Magnesium Iron 36 L TIBC 248 L Transferrin % Sat 15 L Ferritin C-Reactive Protein Vitamin B12 Folate Time Spent with Patient Time Spent with Patient: 25-34 minutes Time was spent: preparing to see the patient(eg.review tests), obtaining and/or reviewing separately otained hiistory, ordering medications,tests, procedures, referring, communicating with other health child care centre director, indepentently interpreting results, counseling the patient and care coordination
[2022-08-31] MEDS: Furosemide 20 MG/2 ML VIAL IVP (11:51)
[2022-08-31] MEDS: Normal Saline Flush 10 ML SYR IVP ×3 (11:52→20:03)
--- NOTE | 2022-08-31 12:25 | PHA.REVIEW2 ---
Pharmacy Admission Review Admission Clinical Review Admission Pharmacy Review: (Updated 08/31/22 @ 07:43 by Eli Campbell MD, [place]) Palliative care patient (Acute) Discharge planning issues (Acute) DVT prophylaxis (Acute) Acute renal insufficiency (Acute) Septic shock (Acute) Sepsis (Acute) Pneumonia (Acute) Breakthrough seizure (Acute) oxycodone [From Percocet] Adverse Reaction (Unverified 08/29/22 14:10) Penicillins Adverse Reaction (Unverified 08/29/22 14:10) Resuscitation Status Full Code Height 5 ft 5 in Weight 72.4 kg Pharmacy Admission Review Renal Dosing Renal Dosing: BUN 24 mg/dL (7-18) H 08/31/22 06:00 Creatinine 0.9 mg/dL (0.70-1.30) 08/31/22 06:00 Medications needing adjustments: Reviewed (eCrCl 54 ml/min) List of meds needing interventions: none, all orders appropriately dosed Anticoagulation Anticoagulation: Hgb 11.6 g/dL (13.5-17.5) L 08/31/22 06:00 Hct 35.1 % (40.0-50.0) L 08/31/22 06:00 Plt Count 136 10^3/uL (130-400) 08/31/22 06:00 Creatinine 0.9 mg/dL (0.70-1.30) 08/31/22 06:00 DVT Prophylaxis: Reviewed Medications: Heparin Opiate Usage Evaluate Pain Scale/Pains Meds: N/A Relevant Labs Relevant Labs: Sodium 143 mmol/L (136-145) 08/31/22 06:00 Potassium 4.1 mmol/L (3.5-5.1) 08/31/22 06:00 Chloride 107 mmol/L (98-107) 08/31/22 06:00 Magnesium 2.0 mg/dL (1.8-2.4) 08/31/22 06:00 C-Reactive Protein 9.12 mg/dL (0.0-0.3) H 08/31/22 06:00 Electrolytes, C-Reactive P, ESR: Reviewed DM Control Insulin Dosing: N/A Cardiac Review Cardiac Review: Troponin I < 50 ng/L (<or=60) 08/29/22 17:30 NT-Pro-B Natriuret Pep 3511 pg/mL (<300) H 08/30/22 05:30 EF%, ANDREW's, B-Blockers, Diuretics: Reviewed List meds needing interventions: takes metoprolol succ at home, held given low BPs on admission - will add back on as tolerated QTc Review If Elevated: Reviewed List meds needing interventions: 423 on admission IV to PO Switch IV Medications: Reviewed Home Meds Home Med List reviewed: Intervened Relevent Home Meds Not ordered & why?: all ordered; reviewed patient's most recent PCP and neuro visit notes to get a better idea of the current clinical picture, it appears there was poor follow up communication between the patient and neurologist and Vimpat was not reordered beyond the initial 30 day supply that was prescribed upon discharge from his last admission here on 06/04/22- I addressed this with the hospitalist Medication adherence barriers identified?: It does not seem that the patient and his have a very good understanding of what he is on and did not bring a list of his medications along with them to either follow up appt, PCP also expressed concern that pt doesn't allow to help with med administration so he was not confident that the patient was taking his meds correctly if at all. Upon discharge I would highly recommend using a bubble pack service that may be offered by patient's preferred pharmacy (most pharmacies do you just need to ask!). A laminated wallet size med list would be jovel. Med education regarding the addition of Vimpat would also be helpful prior to discharge. Current Meds Current Medication Order Review: Reviewed Pharmacy Antibiotic Review Relevant Labs: Relevant Labs 08/31/22 06:00 C-Reactive Protein 9.12 H
--- NOTE | 2022-08-31 15:34 | PHA.ACLINAW ---
Renal Dosing Renal Dosing: BUN 24 mg/dL (7-18) H 08/31/22 06:00 Creatinine 0.9 mg/dL (0.70-1.30) 08/31/22 06:00 Anticoagulation Anticoagulation: Hgb 11.6 g/dL (13.5-17.5) L 08/31/22 06:00 Hct 35.1 % (40.0-50.0) L 08/31/22 06:00 Plt Count 136 10^3/uL (130-400) 08/31/22 06:00 Creatinine 0.9 mg/dL (0.70-1.30) 08/31/22 06:00 DM Control DM Control: Glucose 110 mg/dL (74-106) H 08/31/22 06:00 Cardiac Review Cardiac Review: Troponin I < 50 ng/L (<or=60) 08/29/22 17:30 NT-Pro-B Natriuret Pep 3511 pg/mL (<300) H 08/30/22 05:30 Pharmacy Antibiotic Review Relevant Labs: Relevant Labs 08/31/22 06:00 C-Reactive Protein 9.12 H Pharmacy Antibiotic Activity: Antibiotic de-escalation (treating aspiration PNA so doxy was stopped as ceftriaxone plus metronidazole is appropriate coverage (patient is allergic to PCNs) )
[2022-08-31] MEDS: cefTRIAXone 1 GM/50 ML BAG IVPB (15:57)
--- NOTE | 2022-08-31 17:02 | PDOC.CMPRO ---
Date of service: 08/31/22 Time of Service: 17:05 Care Management Progress Note Progress Note Text Progress Note Text: S/O: Edward remains inpatient, CM continues to follow. A: 87 year old male admitted to [facility] 08/29/22 for acute hypoxic respiratory failure, pneumonia, sepsis P: Anticipate Edward will discharge home via private vehicle with Aletha. He will follow up with outpatient providers and his PCP. CM will continue follow.
--- NOTE | 2022-08-31 17:46 | W.NEUROCONSU ---
Date of service: 08/31/22 Time of Service: 17:46 Assessment and Plan Assessment and plan (1) Breakthrough seizure: Status: Acute Assessment and plan: Mr. Mortensen is an 87 year-old with known epilepsy admitted with complications following a breakthrough seizure, likely secondary to medication non-adherence. Neither Mr. Mortensen nor his knew what medications he takes. A pill packing may be helpful for them. Getting other family/friend to help with medications may also be helpful. He should continue Deapkote 500mg BID and lacosamide 100mg BID for seizure prevention. He should f/up with his neurology team as an outpatient. History of Present Illness History of Present Illness Chief Complaint: seizure Narrative: Handedness: right. HPI: Mr. 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 Mr. Mortensen's was at bedside. Mr. Mortensen was admitted to [facility] on 08/29/22 for aspiration pneumonia, septic shock, and renal failure following GTC at home the day prior. Mr. Mortensen is unable to tell me how often he has seizures. He was previously admitted to [facility] in May 2022 for breakthrough seizure at which time lacosamide 100mg BID was added to Depakote 500mg BID. Mrs. Mortensen notes that he has had several GTCs between May and now, but not clear how many exactly. Neither them know what seizure medications or doses he is on. Reportedly Mr. Mortensen manages his own medications. Per pharmacy records, [facility] filled a 30day supply of lacosamide following his hospitalization in May with no further refills. Lab work as below. He has been continued on VPA 500mg BID and LCS 100mg BID inpatient. He is followed by [facility] last seen by Dr. Rosenbaum on 08/12/22 at which time there was discussion on medication adherence/management., per my review of his [facility] records. Work-up: -[facility] (08/29/22): No acute findings. Mild-moderate global atrophy. I reviewed these images personally and this is my personal interpretation. -Labs: WBC 17.68, Cr 1.4, VPA 61.7, lacosamide pending Review of Systems All systems reviewed & are unremarkable except as noted in HPI and below PFSH All Active Problems Palliative care patient (Acute) Discharge planning issues (Acute) DVT prophylaxis (Acute) Acute renal insufficiency (Acute) Septic shock (Acute) Sepsis (Acute) Pneumonia (Acute) COPD (chronic obstructive pulmonary disease) (Chronic) Breakthrough seizure (Acute) COVID-19 (Acute) Generalized weakness (Acute) Rib fractures (Acute) Medical History CAD (coronary artery disease) Dementia H/O non-insulin dependent diabetes mellitus HTN (hypertension) Hx of hyperlipidemia Kidney stones Lung cancer Myocardial infarction Seizure Seizure disorder UTI (urinary tract infection) Surgical History History of coronary artery stent placement History of tonsillectomy Family History Maternal Grandfather Leukemia Social History Smoking/Tobacco Use Status: Never Smoking risk assessment performed?: Yes Alcohol Intake: never Substance use type: does not use Do you feel safe at home: Yes Do you feel safe in your relationship?: Yes Visit Medication and Allergies Active Medications Generic Name Dose Route Start Last Admin Trade Name Freq PRN Reason Stop Dose Admin Acetaminophen 0 mg 08/29/22 20:46 Acetaminophen 325 Mg Tab PO Q4H PRN PRN Al Hydrox/Mg Hydrox/Simethicone 30 ml 08/29/22 20:46 Mylanta Suspension 30 Ml Cup PO Q2H PRN PRN Albuterol Sulfate 2 puff 08/29/22 20:57 Albuterol Hfa 8 Gm 60 Puff Inh IH Q4H PRN PRN Albuterol Sulfate 2.5 mg 08/31/22 11:00 Albuterol 2.5 Mg/3 Ml Inh Soln Vial UPD Q4H PRN PRN Albuterol/Ipratropium 1 puff 08/29/22 21:00 08/31/22 15:43 Ipratropium/Albuterol 4 Gm 120 Puff Inh IH 1 puff Q6H RAS Administration Aspirin 81 mg 08/30/22 08:30 08/31/22 08:46 Aspirin E.C. 81 Mg Tabec PO 81 mg DAILY RAS Administration Atorvastatin Calcium 40 mg 08/30/22 08:30 08/31/22 08:46 Atorvastatin 40 Mg Tab PO 40 mg DAILY RAS Administration Bacteriostatic Water 0 ml 08/30/22 07:15 Water,Injection,Bacteriostatic 30 Ml Vial IJ DIRECTED PRN Citalopram Hydrobromide 20 mg 08/30/22 08:30 08/31/22 08:45 Citalopram 10 Mg Tab PO 20 mg DAILY RAS Administration Clopidogrel Bisulfate 75 mg 08/30/22 08:30 08/31/22 08:45 Clopidogrel 75 Mg Tab PO 75 mg DAILY RAS Administration Device 1 each 08/29/22 21:00 Inhaler, Assist Device MC DIRECTED [facility] Dimethicone/Zinc Oxide 0 gm 08/29/22 20:41 Maria Isabel Protect Cream 142 Gm Tube TP PRN PRN Divalproex Sodium 500 mg 08/31/22 20:00 Divalproex 250 Mg Tabec PO BID [facility] Docusate Sodium 100 mg 08/29/22 20:41 08/30/22 19:53 Docusate Sodium 100 Mg Cap PO 100 mg TID PRN PRN Administration Donepezil HCl 10 mg 08/30/22 08:30 08/31/22 08:47 Donepezil 5 Mg Tab PO 10 mg DAILY [facility] Administration Guaifenesin 600 mg 08/30/22 20:00 08/31/22 08:45 Guaifenesin 600 Mg Tabcr PO 600 mg BID RAS Administration Heparin Sodium (Porcine) 5,000 units 08/29/22 22:00 08/31/22 14:49 Heparin 5,000 Units/Ml Vial SC 5,000 units Q8H RAS Administration Ceftriaxone Sodium/Dextrose 1 gm in 50 mls @ 100 mls/hr 08/30/22 16:00 08/31/22 15:57 Rocephin IVPB 100 mls/hr Q24H RAS Administration Metronidazole 500 mg in 100 mls @ 100 mls/hr 08/30/22 08:00 08/31/22 14:50 Flagyl IVPB 100 mls/hr Q6H RAS Administration Sodium Chloride 500 mls @ 0 mls/hr 08/30/22 10:31 Saline 500ml Bag IV PRN PRN As Directed IV Miscellaneous Supplies 1 each 08/30/22 07:15 Iv Access IV DIRECTED [facility] Ketoconazole 0 gm 08/30/22 08:30 08/31/22 11:45 Ketoconazole 2% Cream 15 Gm Tube TP Not Given BID RAS Lacosamide 100 mg 08/30/22 08:30 08/31/22 08:46 Lacosamide 100 Mg Tab PO 100 mg BID RAS Administration Magnesium Hydroxide 30 ml 08/29/22 20:46 Milk Of Magnesia 30 Ml Cup PO DAILY PRN PRN Melatonin 15 mg 08/29/22 22:56 Melatonin 3 Mg Tab PO HS PRN SLEEP Memantine 5 mg 08/29/22 23:00 08/30/22 21:32 Memantine 5 Mg Tab PO 5 mg HS RAS Administration Multivitamins 1 tab 08/30/22 08:30 08/31/22 08:45 Multivitamin Tab PO 1 tab DAILY RAS Administration Nitroglycerin 0.4 mg 08/29/22 20:57 Nitroglycerin 0.4 Mg Tab SL Q5 MIN PRN X3 PRN Pantoprazole Sodium 40 mg 08/30/22 08:30 08/31/22 08:46 Pantoprazole 40 Mg Tabcr PO 40 mg DAILY RAS Administration Polyethylene Glycol 17 gm 08/29/22 20:41 Polyethylene Glycol 3350 17 Gm Packet PO DAILY PRN PRN Constipation Sodium Chloride 0 ml 08/30/22 07:15 08/31/22 14:50 Normal Saline Flush 10 Ml Syr IVP 10 ml PRN PRN Administration Tamsulosin HCl 0.4 mg 08/30/22 08:30 08/31/22 08:45 Tamsulosin 0.4 Mg Capcr PO 0.4 mg DAILY RAS Administration Allergies oxycodone [From Percocet] Adverse Reaction (Unverified 08/29/22 14:10) Penicillins Adverse Reaction (Unverified 08/29/22 14:10) Exam Narrative Exam Narrative: Physical Exam: Gen: Patient of apparent stated age, NAD Head and face: no facial or cranial abnormalities Neck: Supple, no meningismus, no occipital tenderness CV: + S1, S2, RRR, no murmur Resp: CTA B/L Abd: soft, nontender, nondistended Ext: No edema. No clubbing or cyanosis. No bony deformity. Neuro Exam: Language: fluency, naming, repetition, and comprehension intact; Mental Status: AAOx2, current events and fund of knowledge limited; Speech: no dysarthria Cranial nerves: CN II: visual mathis intact CN III, IV, : extraocular movements intact, no nystagmus, pupils symmetric and reactive to light CN V: face sensation intact to LT and PP CN VII: no facial asymmetry noted CN VIII: hearing intact bilaterally CN IX, X: palate rises symmetrically CN XI: trapezius/SCM 5/5 bilaterally CN XII: protrudes tongue symmetrically Sensory: intact to LT, PP in all extremities Motor: bulk and tone intact. Fine motor movements intact bilaterally. No pronator drift. Strength 5/5 throughout including the deltoids, biceps, triceps, wrist extensors, hip flexors, knee flexors, knee extensors, ankle flexors, and ankle extensors. Reflexes: 2+ at the biceps, triceps, brachioradialis, patella, and achilles tendons bilaterally; toes down going bilaterally; Coordination: FTN and HTS intact bilaterally Gait: not seen Results Last Vital Signs Temp 97.2 F L 08/31/22 06:00 Pulse 56 L 08/31/22 16:00 Resp 21 08/31/22 16:01 BP 143/57 H 08/31/22 16:00 Pulse Ox 93 08/31/22 16:01 Labs 08/31/22 06:00 08/31/22 06:00 Labs: Laboratory Results - last 24 hr 08/31/22 08/31/22 08/31/22 06:00 06:00 06:00 WBC 12.11 H RBC 3.79 L Hgb 11.6 L Hct 35.1 L MCV 93 MCH 30.6 MCHC 33.0 RDW 14.0 Plt Count 136 MPV 10.4 Immature Gran % 0.9 Neutrophils % 81.6 Lymphocytes % 7.9 Monocytes % 9.5 Eosinophils % 0.0 Basophils % 0.1 Nucleated RBC % 0.0 Absolute Neutrophils 9.88 H Absolute Lymphocytes 0.96 L Absolute Monocytes 1.15 H Absolute Eosinophils 0.00 Absolute Basophils 0.01 VBG Lactate Sodium 143 Potassium 4.1 Chloride 107 Carbon Dioxide 28.6 Anion Gap 7.4 BUN 24 H Creatinine 0.9 Est GFR (CKD-EPI 2020) 83.18 Glucose 110 H Calcium 7.8 L Magnesium 2.0 Iron 36 L TIBC 248 L Transferrin % Sat 15 L Ferritin 173 C-Reactive Protein 9.12 H Vitamin B12 544 Folate 17.4 08/31/22 08:42 WBC RBC Hgb Hct MCV MCH MCHC RDW Plt Count MPV Immature Gran % Neutrophils % Lymphocytes % Monocytes % Eosinophils % Basophils % Nucleated RBC % Absolute Neutrophils Absolute Lymphocytes Absolute Monocytes Absolute Eosinophils Absolute Basophils VBG Lactate 1.8 H Sodium Potassium Chloride Carbon Dioxide Anion Gap BUN Creatinine Est GFR (CKD-EPI 2020) Glucose Calcium Magnesium Iron TIBC Transferrin % Sat Ferritin C-Reactive Protein Vitamin B12 Folate
--- NOTE | 2022-08-31 18:44 | PT.INTREAT ---
Date of service: 08/31/22 Time of Service: 18:04 PT Notes Visit Reasons: Acute Hyposic Respiratory Failure,Pneumonia,Sepsis Inpatient Physical Therapy Treatment Note [facility] Date: 08/31/22 PRECAUTIONS: Fall, standard, activity as tolerated SUBJECTIVE: Patient supine in bed, agreeable to therapy, does not want to go trotting the halls. OBJECTIVE: PAIN: none reported BED MOBILITY/TRANSFERS Rolling L/R: independent Supine-sit: independent Sit-supine: independent Sit-stand: standby Stand-sit: standby Bed-Chair: standby Chair-bed: standby THEREX: Supine 10x heel slides, straight leg raises, bridges. Seated EOB 2x10 heel raises, toe raises, marching, LAQ's, hamstring curls and hip abduction against therapist manual resistance, hip adduction vs pillow. 2x5 sit to stands. ASSESSMENT: Patient reports fatigue at end of treatment, tolerates therapy well PLAN: Continue strengthening per plan of care until patient is medically ready for discharge TREATMENT CODE/TIME: [id number] Ther Ex 18 minutes beginning at 18:04
[2022-08-31 19:31] LABS: Legionella Ag Detection Urine Negative (Negative)
[2022-08-31] MEDS: Melatonin 3 MG TAB 15 MG PO (20:02)
[2022-08-31] MEDS: Ketoconazole 2% CREAM 15 GM TUBE TP (20:04)
[2022-08-31] MEDS: Memantine 5 MG TAB PO (21:08)
[2022-09-01] VITALS (17 sets, daily range): BP systolic 105–131; BP diastolic 49–76; PULSE 51–92; RESP 6–26; TEMP 36.4–37.3; O2SAT 90–97
[2022-09-01] MEDS: metroNIDAZOLE 500 MG/100 ML BAG 100 MG IVPB ×4 (01:05→19:49)
[2022-09-01] MEDS: Heparin 5,000 UNITS/ML VIAL 5000 UNITS SC ×3 (05:37→22:09)
[2022-09-01 07:38] LABS: Abs Immature Grans 0.09 10^3/uL (0.0-0.06); Absolute Basophil Count 0.01 10^3/uL (0.0-0.2); Absolute Eosinophil Count 0.05 10^3/uL (0.0-0.7); Absolute Lymphocyte Count 1.09 10^3/uL (1.2-3.4); Absolute Monocyte Count 0.74 10^3/uL (0.1-0.8); Absolute Neutrophil Count 5.57 10^3/uL (1.2-6.7); Basophils % 0.1; Eosinophils % 0.7; HGB 11.8 g/dL (13.5-17.5); Immature Grans % 1.2; Lymphocytes % 14.4; MCH 31.2 pg (27.0-33.0); MCHC 33.7 % (32.0-36.0); MCV 93 fL (80-95); MPV 10.2 fL (8.0-11.0); Monocytes % 9.8; Neutrophils % 73.8; Platelet Count 146 10^3/uL (130-400); RBC 3.78 10^6/uL (4.36-5.78); RDW 14.3 % (11.8-14.1); RDW-SD 48.5 fL; WBC 7.55 10^3/uL (4.4-10.8)
[2022-09-01] MEDS: Ipratropium/Albuterol 4 GM 120 PUFF INH IH ×3 (07:41→19:29)
[2022-09-01 08:07] LABS: Anion Gap 6.8 mmol/L (3-11); BUN 23 mg/dL (7-18); C-Reactive Protein 4.47 mg/dL (0.0-0.3); CO2 28.2 mmol/L (21.0-32.0); Chloride 105 mmol/L (98-107); Glucose 86 mg/dL (74-106); Magnesium 1.9 mg/dL (1.8-2.4); Potassium 4.1 mmol/L (3.5-5.1); Sodium 140 mmol/L (136-145)
[2022-09-01 08:14] LABS: Procalcitonin 4.9 ng/mL
--- NOTE | 2022-09-01 08:15 | CMPROGNOTE_ITS ---
Date of service: 09/01/22 Time of Service: 08:15 Care Management Progress Note Progress Note Text Progress Note Text: S/O: Ed was sitting up in a chair when CM met with him. He was very pleasant, frequently smiling and joking with CM. Ed stated that he is feeling good. He stated that if he was discharged today he would probably go out and work in the yard. 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 He also spoke about his family. He and his are close to their daughter who lives in [place], but not their 2 sons. Ed explained that they are heavy drinkers and don't have much in common. Clinically, Ed is doing well. He remains in the ICU but as an overflow Med-Surg patient. A: 87 year old male admitted to [facility] 08/29/22 for acute hypoxic respiratory failure, pneumonia, sepsis P: Anticipate Edward will discharge home via private vehicle with Aletha. He will follow up with outpatient providers and his PCP. CM will continue follow.
[2022-09-01] MEDS: Divalproex 250 MG TABEC 500 MG PO (09:36)
[2022-09-01] MEDS: Atorvastatin 40 MG TAB PO (09:37)
[2022-09-01] MEDS: Lacosamide 100 MG TAB PO ×2 (09:37→19:49)
[2022-09-01] MEDS: Multivitamin TAB 1 TAB PO (09:38)
[2022-09-01] MEDS: Clopidogrel 75 MG TAB PO (09:38)
[2022-09-01] MEDS: guaiFENesin 600 MG TABCR PO ×2 (09:38→19:50)
[2022-09-01] MEDS: Pantoprazole 40 MG TABCR PO (09:38)
[2022-09-01] MEDS: Donepezil 5 MG TAB 10 MG PO (09:38)
[2022-09-01] MEDS: Aspirin E.C. 81 MG TABEC PO (09:38)
[2022-09-01] MEDS: Tamsulosin 0.4 MG CAPCR PO (09:39)
[2022-09-01] MEDS: Citalopram 10 MG TAB 20 MG PO (09:39)
--- NOTE | 2022-09-01 10:13 | W.PM.PROGNOT ---
Date of Service Date of service: 09/01/22 Time of Service: 10:13 Assessment and Plan Assessment and plan (1) Pneumonia: Start date: 08/29/22 Status: Acute Assessment and plan: RUL PNA in setting of a seizure - suspected aspiration PNA. Continue ceftriaxone/metronidazole. Improving - procalcitonin better, but still quite high. Continue IV abx. Encourage pulmonary toilet. (2) Acute respiratory failure with hypoxia: Start date: 08/29/22 Status: Resolved Assessment and plan: As above. He diuresed quite a bit yesterday after just 20 mg of IV lasix (2000 cc). He sounds completely clear today especially after the use of pulmonary toilet. (3) Sepsis: Start date: 08/29/22 Status: Acute Assessment and plan: Due to above As above Blood cx NGTD. Not making sputum - unable to culture. Trend procalcitonin - improving. Maintaining BPs. (4) COPD (chronic obstructive pulmonary disease): Status: Chronic Assessment and plan: As above No role for steroids at this time. (5) Seizure disorder: Assessment and plan: Continue vimpat + divalproex (500 mg PO BID). Vimpat was not being taken at home. Will need bubble packs on discharge. Will discuss w/ care management. (6) Dementia: Assessment and plan: Continue donepezil and namenda. Monitor behaviors. (7) HTN (hypertension): Assessment and plan: Not requiring BB at this time - BPs controlled. (8) CAD (coronary artery disease): Assessment and plan: No ACS on this admission. Echo w/ LVEF of 55%, nml wall motion, mildly dilated RA and RV, mild aortic regurgitation, moderate tricuspid regurgitation, RVSP of 44 mmHg. No further ischemic workup is indicated. (9) DVT prophylaxis: Status: Acute Assessment and plan: SC heparin (10) Discharge planning issues: Status: Acute Assessment and plan: Full code Seen by palliative care. Anticipate discharge home with home health nursing. Would benefit from bubble packs on discharge. Subjective Subjective Interval history since last seen: Mr Mortensen is feeling better. Slept with his home CPAP. Denied dizziness, CP, SOB, n/v. No seizure events. saturating 93% this am. Nursing noted crackles this am which disappeared with pulmonary toiletting. Exam Narrative Exam Narrative: General: Pleasant elderly male who is [place], A&Ox3, sitting up in bed HEENT: EOMI, MMM Heart: RRR, no m/r/g Lungs: CTAB Abdomen: soft, nontender, nondistended Extremities: no edema BLEs Objective Last Vital Signs Temp 36.4 C L 09/01/22 08:09 Pulse 55 L 09/01/22 07:37 Resp 17 09/01/22 07:37 BP 115/55 L 09/01/22 04:00 Pulse Ox 95 09/01/22 07:37 Laboratory Results - last 24 hr 08/30/22 09/01/22 09/01/22 21:25 06:35 06:35 WBC RBC Hgb Hct MCV MCH MCHC RDW Plt Count MPV Immature Gran % Neutrophils % Lymphocytes % Monocytes % Eosinophils % Basophils % Nucleated RBC % Absolute Neutrophils Absolute Lymphocytes Absolute Monocytes Absolute Eosinophils Absolute Basophils Sodium 140 Potassium 4.1 Chloride 105 Carbon Dioxide 28.2 Anion Gap 6.8 BUN 23 H Creatinine 1.0 Est GFR (CKD-EPI 2020) 73.30 Glucose 86 Calcium 8.0 L Magnesium 1.9 C-Reactive Protein 4.47 H Procalcitonin 4.9 Urine Legionella Ag Negative 09/01/22 06:35 WBC 7.55 RBC 3.78 L Hgb 11.8 L Hct 35.0 L MCV 93 MCH 31.2 MCHC 33.7 RDW 14.3 H Plt Count 146 MPV 10.2 Immature Gran % 1.2 Neutrophils % 73.8 Lymphocytes % 14.4 Monocytes % 9.8 Eosinophils % 0.7 Basophils % 0.1 Nucleated RBC % 0.0 Absolute Neutrophils 5.57 Absolute Lymphocytes 1.09 L Absolute Monocytes 0.74 Absolute Eosinophils 0.05 Absolute Basophils 0.01 Sodium Potassium Chloride Carbon Dioxide Anion Gap BUN Creatinine Est GFR (CKD-EPI 2020) Glucose Calcium Magnesium C-Reactive Protein Procalcitonin Urine Legionella Ag Time Spent with Patient Time Spent with Patient: 25-34 minutes Time was spent: preparing to see the patient(eg.review tests), obtaining and/or reviewing separately otained hiistory, ordering medications,tests, procedures, referring, communicating with other health physician primary care sports medicine, indepentently interpreting results, counseling the patient and care coordination
[2022-09-01 11:33] LABS: Lacosamide 1.7 mcg/mL (1.0 - 10.0)
--- NOTE | 2022-09-01 11:50 | PT.INTREAT ---
PT Notes Visit Reasons: Acute Hyposic Respiratory Failure,Pneumonia,Sepsis Inpatient Physical Therapy Treatment Note [facility] Date: 09/01/22 SUBJECTIVE: Dimitrios states that he is doing well. He offers no complaints to me this am. Is willing and ready to go for a walk. OBJECTIVE: [] BED MOBILITY/TRANSFERS pt sitting in chair Sit-stand:SBA Stand-sit: SBA GAIT Assistive Device: IV pole Weight bearing: full Assist: SBA/CGA Distance: approx 200' VITALS: monitored by nursing ASSESSMENT: tolerated session very well. Strength is WNL, endurance is improving. PLAN: continue to work on endurance and may initiate stair negotiation during pm session. TREATMENT CODE/TIME: 20 min. ([id number])
[2022-09-01] MEDS: cefTRIAXone 1 GM/50 ML BAG IVPB (16:19)
--- NOTE | 2022-09-01 16:37 | RESPIRATORY ---
Addendum entered by Dalila Lugo 09/02/22 09:18: Patient's uses an AirFit F30i FFM size small cushion with standard frame and the DME is [facility]. Original Note: Pt's own CPAP ResMed AutoSense 10 Constant Pressure: 14 No O2 bleed in. Face mask size small. Pt unsure of DME, states his usually handles it.
[2022-09-01] MEDS: Divalproex 500 MG TABEC PO (19:50)
[2022-09-01] MEDS: Memantine 5 MG TAB PO (22:10)
[2022-09-02] MEDS: metroNIDAZOLE 500 MG/100 ML BAG 100 MG IVPB ×2 (02:10→07:56)
[2022-09-02] MEDS: Heparin 5,000 UNITS/ML VIAL 5000 UNITS SC ×2 (05:45→13:54)
[2022-09-02 05:51] VITALS: BP 130/75; PULSE 63; RESP 18; TEMP 36.6; O2SAT 94
[2022-09-02 06:50] LABS: Absolute Basophil Count 0.02 10^3/uL (0.0-0.2); Absolute Eosinophil Count 0.13 10^3/uL (0.0-0.7); Absolute Lymphocyte Count 1.16 10^3/uL (1.2-3.4); Absolute Monocyte Count 0.73 10^3/uL (0.1-0.8); Absolute Neutrophil Count 3.22 10^3/uL (1.2-6.7); Basophils % 0.4; Eosinophils % 2.4; HCT 34.7 % (40.0-50.0); HGB 11.8 g/dL (13.5-17.5); Immature Grans % 1.9; Lymphocytes % 21.6; MCH 30.8 pg (27.0-33.0); MCV 91 fL (80-95); MPV 9.6 fL (8.0-11.0); Monocytes % 13.6; Neutrophils % 60.1; Platelet Count 145 10^3/uL (130-400); RBC 3.83 10^6/uL (4.36-5.78); RDW-SD 46.8 fL; WBC 5.36 10^3/uL (4.4-10.8)
[2022-09-02 07:33] LABS: Anion Gap 5.9 mmol/L (3-11); BUN 15 mg/dL (7-18); CO2 29.1 mmol/L (21.0-32.0); CREATININE 0.9 mg/dL (0.70-1.30); Calcium 7.8 mg/dL (8.5-10.1); Chloride 106 mmol/L (98-107); Estimated GFR 83.18 (mL/min/1.73m2); Glucose 94 mg/dL (74-106); Magnesium 1.8 mg/dL (1.8-2.4); Potassium 3.7 mmol/L (3.5-5.1); Sodium 141 mmol/L (136-145)
[2022-09-02 07:53] VITALS: BP 143/77; PULSE 64; RESP 16; TEMP 36.6; O2SAT 95
[2022-09-02] MEDS: Clopidogrel 75 MG TAB PO (07:55)
[2022-09-02] MEDS: Multivitamin TAB 1 TAB PO (07:56)
[2022-09-02] MEDS: Tamsulosin 0.4 MG CAPCR PO (07:56)
[2022-09-02] MEDS: Divalproex 500 MG TABEC PO (07:56)
[2022-09-02] MEDS: Atorvastatin 40 MG TAB PO (07:56)
[2022-09-02] MEDS: Donepezil 5 MG TAB 10 MG PO (07:56)
[2022-09-02] MEDS: Aspirin E.C. 81 MG TABEC PO (07:56)
[2022-09-02] MEDS: Citalopram 10 MG TAB 20 MG PO (07:56)
[2022-09-02] MEDS: Pantoprazole 40 MG TABCR PO (07:56)
[2022-09-02] MEDS: Lacosamide 100 MG TAB PO (07:56)
[2022-09-02] MEDS: guaiFENesin 600 MG TABCR PO (07:56)
[2022-09-02] MEDS: Ipratropium/Albuterol 4 GM 120 PUFF INH IH ×2 (08:13→13:07)
--- NOTE | 2022-09-02 10:44 | PDOC.CMPRO ---
Date of service: 09/02/22 Time of Service: 10:44 Care Management Progress Note Progress Note Text Progress Note Text: S/O: Ed was sitting up in a chair when CM met with him. He was very pleasant in interaction and engaged easily with CM. Ed has been moved out of the ICU A: 87 year old male admitted to [facility] 08/29/22 for acute hypoxic respiratory failure, pneumonia, sepsis P: Anticipate Edward will discharge home via private vehicle with Aletha. He will follow up with outpatient providers and his PCP. CM will continue follow.
--- NOTE | 2022-09-02 11:52 | PT.INTREAT ---
Date of service: 09/02/22 Time of Service: 11:37 PT Notes Visit Reasons: Acute Hyposic Respiratory Failure,Pneumonia,Sepsis Inpatient Physical Therapy Treatment Note [facility] Date: 09/02/22 PRECAUTIONS: Standard SUBJECTIVE: Patient longsitting in bed, agreeable to therapy. OBJECTIVE: PAIN: none reported BED MOBILITY/TRANSFERS Rolling L/R: independent Supine-sit: independent Sit-supine: independent Sit-stand: independent Stand-sit: independent Bed-Chair: standby Chair-bed: standby GAIT Assistive Device: FWW, no AD Weight bearing: Full Assist: contact guard out of abundance of caution, standby would have been appropriate Distance: 150 feet with FWW, 150 feet with no AD Deviation: reduced stride length, good step height, good posture, good arm swing when not using FWW ASSESSMENT: Patient cannot remember whether he has a FWW at home or whether he let someone else borrow it, Patient does not appear to require the use of a FWW as his gait does not change much with or without it PLAN: Patient expected to discharge home today TREATMENT CODE/TIME: [id number] Gait 13 minutes beginning at 11:37
--- NOTE | 2022-09-02 12:55 | W.PALPGNOTE ---
Date of service: 09/02/22 Time of Service: 15:00 Assessment and Plan Assessment and plan (1) Acute renal insufficiency: Status: Resolved (2) Septic shock: Status: Resolved (3) Pneumonia: Status: Acute (4) Palliative care patient: Status: Acute Assessment and plan: Ed's was not in the room today during this discussion. We did talk again about CPR. He again stated that he did not want those things done to him. He was definitely more forgetful today with his not there to orient him. He has improved greatly from his admission. Labs are normalizing. Plan is for him to go home. I am happy for both he and his . I would like to see him outpatient after he and his can think about CODE STATUS etc. She voiced that she needed to talk with him at home before she made any decisions. Palliative care will reach out to him for an appointment. At this point he is a full code. He has now stated on 3 occasions that he does not want CPR but due to his frontal lobe degeneration he does not have full capacity to make this decision today. Subjective Subjective Interval history since last seen: I am feeling much better and plan to go home soon. My is coming to pick me up. Overall he has improved over the last several days. His labs are normalizing, he is breathing better, ambulating better per staff Exam Narrative Exam Narrative: Ed is very very friendly but said that he remembered my face but could not remember what I did. He could tell me his 's name. He said he had been 80 years (actually it was 70 years) his heart was regular. Lungs much better air movement but still rales on both bases. Abdomen soft nontender. No edema. Mood very pleasant but also very forgetful Objective Last Vital Signs Temp 97.8 F 09/02/22 07:53 Pulse 64 09/02/22 07:53 Resp 16 09/02/22 07:53 BP 143/77 H 09/02/22 07:53 Pulse Ox 95 09/02/22 07:53 Laboratory Results - last 24 hr 08/30/22 09/02/22 09/02/22 08:55 06:36 06:36 WBC 5.36 RBC 3.83 L Hgb 11.8 L Hct 34.7 L MCV 91 MCH 30.8 MCHC 34.0 RDW 14.0 Plt Count 145 MPV 9.6 Immature Gran % 1.9 Neutrophils % 60.1 Lymphocytes % 21.6 Monocytes % 13.6 Eosinophils % 2.4 Basophils % 0.4 Nucleated RBC % 0.0 Absolute Neutrophils 3.22 Absolute Lymphocytes 1.16 L Absolute Monocytes 0.73 Absolute Eosinophils 0.13 Absolute Basophils 0.02 Sodium 141 Potassium 3.7 Chloride 106 Carbon Dioxide 29.1 Anion Gap 5.9 BUN 15 Creatinine 0.9 Est GFR (CKD-EPI 2020) 83.18 Glucose 94 Calcium 7.8 L Magnesium 1.8 Lacosamide Level 1.7 Laboratory Tests 08/30/22 08/31/22 09/01/22 12:00 08:42 06:35 VBG Lactate 5.0 H* 1.8 H Calcium C-Reactive Protein 4.47 H Procalcitonin 09/01/22 09/02/22 06:35 06:36 VBG Lactate Calcium 7.8 L C-Reactive Protein Procalcitonin 4.9 echo Conclusion Normal left ventricular wall thickness and chamber size.? Ejection fraction is 55%.? Wall motion is normal Right ventricle is mildly dilated.? Right ventricular systolic function appears grossly normal The right atrium is mildly dilated.? Left atrial size is normal Aortic valve is sclerotic and trileaflet with mild regurgitation.? There is no hemodynamically significant aortic stenosis Normal mitral valve with mild regurgitation Normal tricuspid valve with moderate regurgitation.? Estimated right ventricular systolic pressure is 44 mmHg
--- NOTE | 2022-09-02 14:14 | DSE_ITS ---
Date of service: 09/02/22 Time of Service: 14:14 DS: Diagnosis Discharge Diagnosis (1) Acute renal insufficiency: Status: Acute Asessment and Plan: Resolved with fluid resuscitation and treatment of PNA. (2) Septic shock: Status: Acute Asessment and Plan: As above. (3) Pneumonia: Status: Acute Asessment and Plan: RUL infiltrate. WBC count normalized. Afebrile. S/P 3 doses of Rocephin. Cont cefpodoxime 200mg BID for 8 doses. (4) Palliative care patient: Status: Acute Asessment and Plan: Continue to follow as outpt. (5) Seizure: Asessment and Plan: Known epilepsy with recent breakthrough seizure. Dr Fox, neurology, consulted. Questionable adherence to medical regimen. He is considering changing pharmacies so that his medications can be delivered in a blister pack. He is willing but he states his is hesitant to change. He should further discuss this with his , daughter and PCP. (6) CAD (coronary artery disease): Asessment and Plan: No ACS on this admission. Echo w/ LVEF of 55%, nml wall motion, mildly dilated RA and RV, mild aortic regurgitation, moderate tricuspid regurgitation, RVSP of 44 mmHg. No further ischemic workup is indicated. His metoprolol is being held d/t bradycardia concerns and low BP (improving). Should be restarted if PCP feels his HR and BP can accomodate; could possibly r equire lower dose. Cont aspirin and Plavix. Cont atorvastatin. (7) Dementia: Asessment and Plan: Cont donepazil and memantine. Discharge Plan Disposition Patient Disposition: Home W/Home Health Services Condition: Improving Discharge Details Reason For Visit: Acute Hyposic Respiratory Failure,Pneumonia,Sepsis Admit Date/Time: 08/29/22 20:31 Admit Provider: Gibran Pabon Attending Provider: Gibran Pabon Primary Care Provider: Jordon Padron Hospital Course Hospital Course: This is an 87-year-old male patient who has advancing dementia on medical therapy who has also breakthrough seizures with seizure disorder which are not uncommon.? He states that whenever he has seizures his gets nervous.? He had such seizure the day of presentation and in the ED evaluation was found to have a probable lobar pneumonia by CT and had associated hypoxemia which was corrected with O2 supplementation.? During his ED evaluation he also had hypotension which responded to IV fluids with slight increase in his creatinine with decreased intake the day of admission because of his postseizure state though he was not postictal.? He remembers not eating or drinking well because he did not feel hungry or thirsty.? He denied any cough or fevers.? He had no headache and had no trauma from his seizure.? The patient offered no further history and his was not available during hospitalist nterview.? He is a full code.? He was previously a DNR and palliative care needs to be consulted during his hospital stay. Admitted on Ceftriaxone and Flagyl. See Diagnosis PCP f/u in 1-2 weeks. Home Meds and New Rx's Prescriptions: New cefpodoxime 200 mg tablet 200 mg PO BID Qty: 8 0RF Rx Instructions: must administer with a meal/food Continued citalopram 10 mg tablet 20 mg PO DAILY therapeutic multivitamin Tablet 1 tab PO DAILY donepezil 10 mg tablet 10 mg PO DAILY melatonin 10 mg Tablet,Disintegrating 15 mg PO HS PRN Rx Instructions: take one and one half tablets = 15mg at bedtime tamsulosin 0.4 mg Capsule 0.4 mg PO DAILY memantine 5 mg tablet 5 mg PO QHS Patient Comments: TAKE 1 TABLET BY MOUTH NIGHTLY ketoconazole 2 % cream 1 applic TOPICAL BID Patient Comments: APPLY CREAM TOPICALLY TO THE RASH ON THE SCALP AND AROUND HAIRLINE TWICE DAILY NEEDED Combivent Respimat 20-100 mcg/actuation Mist 1 puff INHALATION Q6H [place]лия-[place] Plus Cold-Flu 12.5-10-20-650 mg Powder In Packet 1 packet PO PRN PRN divalproex [Depakote ER] 500 mg Tablet Extended Release 24 Hr 500 mg PO BID clopidogrel [Plavix] 75 MG tablet 75 mg PO DAILY nitroglycerin [Nitrostat] 0.4 MG tablet, sublingual 0.4 mg Sublingual Q5 MIN PRN X3 PRN albuterol sulfate [Proventil HFA] 6.7 GM HFA aerosol inhaler 2 puff Inhalation Q4H PRN PRN aspirin 81 mg Tablet,Delayed Release (Dr/Ec) 81 mg PO DAILY atorvastatin [Lipitor] 40 mg Tablet 40 mg PO DAILY lacosamide 100 mg tablet 100 mg PO BID Qty: 60 0RF Held metoprolol succinate 25 mg tablet extended release 24 hr 25 mg PO DAILY Hold Instructions: Hold until PCP f/u and recheck of pulse. Discontinued acetaminophen [Mapap Extra Strength] 500 MG tablet 1,000 mg PO BID PRN No Action pantoprazole 40 MG tablet,delayed release (DR/EC) 40 mg PO DAILY Discharge Instructions Referrals: Jordon Padron [Primary Care Provider] - (Follow up after hospital d/c in 1-2 weeks.) Activity:: Activity as Tolerated Equipment/Supplies:: No Equipment Needed Diet:: Resume home diet Discharge Orders Discharge Orders: Discharge Order (Routine); Ordered 09/02/22 Ordered By: Wagner Grider DS: Summary Time Spent with Patient providing and/or coordinating discharge services: Greater than 30 minutes Status at Discharge Functional status at discharge: independent ambulation Overall status at discharge: patient is progressing back to baseline Mental Status: mental status grossly normal Speech and Movement: speech clear Mood: congruent mood Affect: normal affect Exam Narrative Exam Narrative: General: Pleasant elderly male who is [place]. Lying in bed. Pleasant. NAD. HEENT: EOMI, MMM, sclera clear. Heart: RRR, no murmur. Lungs: CTAB Abdomen: soft, nontender, nondistended Extremities: no edema BLEs Psych Mental Status: mental status grossly normal Speech and Movement: speech clear Mood: congruent mood Affect: normal affect DS: Data Vitals/I&O Vitals and I&O: Vital Signs Temperature 36.6 C 09/02/22 07:53 Temperature Source Tympanic 09/02/22 07:53 Pulse 64 09/02/22 07:53 Pulse Rhythm Regular 09/02/22 07:30 Pulse 68 09/01/22 14:56 Respiratory Rate 16 09/02/22 07:53 Respiratory Effort Normal, Non-Labored 09/02/22 07:30 Respiratory Depth Normal 09/02/22 07:30 Respiratory Pattern Normal 09/02/22 07:30 Blood Pressure 143/77 H 09/02/22 07:53 Blood Pressure Mean 70 09/01/22 14:56 Blood Pressure Position Supine 08/29/22 22:25 Pulse Oximetry 95 09/02/22 07:53 Oxygen Delivery Method Room Air 09/02/22 07:53 Oxygen Flow Rate 0 09/02/22 07:53 Fraction of Inspired Oxygen (FIO2) 21 09/02/22 08:52 Pain Level 0 09/02/22 07:53 Comment RN notified 09/01/22 05:30 Intake & Output 09/01/22 09/02/22 09/02/22 23:59 11:59 23:59 Intake Total 650 / 1410 100 / 200 100 / 200 Output Total 350 / 1025 450 / 450 Balance 300 / 385 -350 / -250 100 / -250 Intake: IV 250 / 650 100 / 200 100 / 200 Oral 400 / 760 Output: Urine 350 / 1025 450 / 450 Other: Urine Color Yellow Yellow Urine Appearance Clear Clear Comment bedside urinal void x 1. Stool Size Large Stool Characteristics Soft Brown Data Completed and Pending Labs on day of discharge: Labs from last 24 hours 09/02/22 09/02/22 08/30/22 06:36 06:36 08:55 WBC 5.36 RBC 3.83 L Hgb 11.8 L Hct 34.7 L MCV 91 MCH 30.8 MCHC 34.0 RDW 14.0 Plt Count 145 MPV 9.6 Immature Gran % 1.9 Neutrophils % 60.1 Lymphocytes % 21.6 Monocytes % 13.6 Eosinophils % 2.4 Basophils % 0.4 Nucleated RBC % 0.0 Absolute Neutrophils 3.22 Absolute Lymphocytes 1.16 L Absolute Monocytes 0.73 Absolute Eosinophils 0.13 Absolute Basophils 0.02 Sodium 141 Potassium 3.7 Chloride 106 Carbon Dioxide 29.1 Anion Gap 5.9 BUN 15 Creatinine 0.9 Est GFR (CKD-EPI 2020) 83.18 Glucose 94 Calcium 7.8 L Magnesium 1.8 Lacosamide Level 1.7 Preliminary micro results at discharge 08/29/22 17:17 Blood Culture - Preliminary Blood NO GROWTH 72 HOURS 08/29/22 17:00 Blood Culture - Preliminary Blood NO GROWTH 72 HOURS PFSH All Active Problems Palliative care patient (Acute) Discharge planning issues (Acute) DVT prophylaxis (Acute) Acute renal insufficiency (Acute) Septic shock (Acute) Sepsis (Acute) Pneumonia (Acute) COPD (chronic obstructive pulmonary disease) (Chronic) Breakthrough seizure (Acute) COVID-19 (Acute) Generalized weakness (Acute) Rib fractures (Acute) Medical History CAD (coronary artery disease) Dementia H/O non-insulin dependent diabetes mellitus HTN (hypertension) Hx of hyperlipidemia Kidney stones Lung cancer Myocardial infarction Seizure Seizure disorder UTI (urinary tract infection) Surgical History History of coronary artery stent placement History of tonsillectomy Family History Maternal Grandfather Leukemia Social History Smoking/Tobacco Use Status: Never Smoking risk assessment performed?: Yes Alcohol Intake: never Substance use type: does not use Do you feel safe at home: Yes Do you feel safe in your relationship?: Yes Time Spent with Patient Time Spent with Patient: 45-69 minutes Time was spent: preparing to see the patient(eg.review tests), obtaining and/or reviewing separately otained hiistory, referring, communicating with other health janitor caretaker, indepentently interpreting results, counseling the patient and care coordination
--- NOTE | 2022-09-02 14:45 | PDOC.HHF2F ---
Home Health Referral Home Health Orders Clinical synopsis of why skilled professionals are needed: Patient was admitted for pneumonia, sepsis and breakthrough seizures. He now has new medications and concerns about medication compliance. Medical diagnosis necessitation home health referral: PNeumonia. Breakthrough seizure. Registered Nurse: Check all that apply Instruct on new or changed medication(s)/assess compliance: Ordered Assess for exacerbation of medical condition, instruct patient/caregivers on signs and symptoms to report for early detection: Ordered Home Bound Status Assistance of another person (Describe assistance and medical necessity): Stand by assistance for safe ambulation outside of the home Describe why leaving home would require a considerable and taxing effort: Requires frequent rest periods Encounter Date and Reason: I certify that a FTF encounter for this patient was performed on September 02, 2022 and that such encounter was related to the primary reason the patient requires home health services. The encounter was conducted in the following manner: By me as the certifying physician, ADVANCED MANUFACTURING TECHNICIAN, PA or By an inpatient physician, ADVANCED MANUFACTURING TECHNICIAN or PA during an inpatient stay who communicated findings to me, Certification And Authentication I certify that I composed the above information based on my clinical judgment relating to this patient's medical condition and, if applicable, clinical findings communicated to me by the NPP or inpatient physician who performed the FTF encounter. Name of Provider that will be monitoring home health services: Wagner Grider
[2022-09-02 15:16] LABS: Streptococcus Pneumoniae Ag, U Negative (Negative)
--- NOTE | 2022-09-02 20:25 | PDOC.CMDIS ---
Date of service: 09/02/22 Time of Service: 20:25 LACE Index Scoring Tool Questions: Length of Stay (in days): 4 - 6 Was the patient admitted via the E.D.?: Yes Comorbidities: Previous M.I., Diabetes w/o Complication, Any Tumor and Dementia E.D. Visits: 2 Answers: Total Score: 14 Risk of Readmission: High Risk Care Management Discharge Plan Reason for Hospitalization: Acute hypoxic respiratory failure, pneumonia, sepsis Discharge Plan: Ed will be discharged home with new home health services for nursing for medication management. CM met with Ed, his and daughter at the time of discharge and reviewed a recommendation for him to have his medications blister-packed. They were given information about a local pharmacy that provides this service and will discuss with his PCP at his follow up appointment. Ed will transport home with his and daughter. Patient/Family Education Needs: review of discharge instructions, limitations, activity, follow up plan and discuss Ask Me Three. Services Needed at Discharge: Home Health Care Services
--- NOTE | 2022-09-09 14:20 | INDS_ITS ---
Date of service: 09/02/22 PT Notes Visit Reasons: Acute Hyposic Respiratory Failure,Pneumonia,Sepsis Physical Therapy Inpatient Discharge Summary Date: 09/02/22 Dates of service: 08/30/2022 through 09/02/2022 This is a clinical summary of care provided for the duration of dates listed above. No charge was made in the completion of this documentation. Referring Doctor:? Radha Herron MD PT Orders: PT CONSULT: Limited ability Precautions: standard Patient Profile/Admitting Diagnosis:??87 y o male admitted for management of sepsis, pneumonia, breakthrough seizure, in setting of COPD. PMHX:? All Active Problems? Acute renal insufficiency (Acute) Septic shock (Acute) Acute respiratory failure with hypoxia (Acute) Sepsis (Acute) Pneumonia (Acute) COPD (chronic obstructive pulmonary disease) (Chronic) Breakthrough seizure (Acute) COVID-19 (Acute) Generalized weakness (Acute) Rib fractures (Acute) Medical History? CAD (coronary artery disease) Dementia H/O non-insulin dependent diabetes mellitus HTN (hypertension) Hx of hyperlipidemia Kidney stones Lung cancer Myocardial infarction Seizure Seizure disorder UTI (urinary tract infection) Surgical History? History of coronary artery stent placement History of tonsillectomy Social History/Home Situation: Lives in a private home with his , [facility], but resides primarily on one level with ramp to enter with rail. 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 Daughter in [place], who is present with today, son in [place], and son in [place]. Uses cane occasionally, when he remembers, no history of falls. Current Functional Limitations: Supervision for ambulation and transfers Equipment Owned/DME: Cane Subjective:? NT. See most recent HYBRID TECHNOLOGIST notes. Objective:? General Observation: NT. See most recent HYBRID TECHNOLOGIST notes. Mental Status: NT. See most recent HYBRID TECHNOLOGIST notes. Pain: NT. See most recent HYBRID TECHNOLOGIST notes. Vital Signs: NT. See most recent HYBRID TECHNOLOGIST notes. ROM: Right Upper Extremity: Grossly WFL Left Upper Extremity: Grossly WFL Right Lower Extremity: Grossly WFL Left Lower Extremity: Grossly WFL Strength: Right Upper Extremity: Grossly 4/5 shoulders flex and abd, otherwise 4+/5 distally Left Upper Extremity: Grossly 4-/5 abduction, flex 4/5, otherwise 4+/5 distally Right Lower Extremity: WNL Left Lower Extremity: WNL Sensation:? intact to light touch throughout BED MOBILITY/TRANSFERS? Rolling L/R: independent Supine-sit: independent? Sit-supine: independent ? Sit-stand: independent? Stand-sit: independent ? Bed-Chair: standby? Chair-bed: standby ? GAIT? Assistive Device: FWW, no AD? Weight bearing: Full Assist: contact guard out of abundance of caution, standby would have been appropriate ? Distance:? 150 feet with FWW, 150 feet with no AD? Deviation: reduced stride length, good step height, good posture, good arm swing when not using FWW ? Balance:? Static Sitting: Good Dynamic Sitting: Good Static Standing: Fair Dynamic Standing: Fair Assessment:?? Patient is a 87 year old male referred to physical therapy services with the diagnosis of pneumonia in setting of breakthrough seizure, sepsis, and COPD.? Patient presents with clinical signs and symptoms consistent with mild instability given medical course, as demonstrated by the following impairment level findings: mild balance deficit in absence of fall history.? Impairments are contributing to the following functional limitations: Appropriate age related weakness, supervision for transfers and ambulation. AMPAC score 20% disability. Requires in patient PT service to insure progression to distant supervision with safety and provide skilled strengthening to limit deconditioning and functional loss during impatient admission, with strict monitoring of vitals in the process due to medical complications. Goals: Goals X1 week 1. Supine-Sit independent MET 2. Sit-Supine independent MET 3. Sit-Stand independent MET 4. Stand-Sit independent MET 5. Bed-Chair independent MET 6. Chair-Bed independent NOT MET 7. Gait 50 ft, no AD, independent NOT MET 8. Ramp independent NOT MET 9. Independent with home exercise program NOT MET 10. Steady gait and dynamic movement with all tasks NOT MET DISCHARGE RECOMMENDATIONS: Home with family supervision. Home with no services TREATMENT CODE/TIME: NM Thank you for the opportunity to participate in the care of this patient. Marly Esposito PT, DPT, CLT [facility] [place], [place]
== END 2022-09-02 16:00 | disposition home health service (06) | DRG 871 ==
LOC: ER 21:29 → ICU 22:18 → MS 09-01 15:06
PROVIDERS: Internal Medicine; Nurse Practitioner Family; Admitting Provider Family Medicine; Emergency Provider Physician Assistant; PCP Family Medicine; Visit Provider Family Medicine
DX: A41.9 Sepsis, unspecified organism (principal); J69.0 Pneumonitis due to inhalation of food and vomit; J96.01 Acute respiratory failure with hypoxia; R65.21 Severe sepsis with septic shock; J44.0 Chronic obstructive pulmonary disease with (acute) lower respiratory infection; G40.909 Epilepsy, unspecified, not intractable, without status epilepticus; I25.10 Atherosclerotic heart disease of native coronary artery without angina pectoris; I10 Essential (primary) hypertension; F03.90 Unspecified dementia, unspecified severity, without behavioral disturbance, psychotic disturbance, mood disturbance, and anxiety; N28.9 Disorder of kidney and ureter, unspecified; R53.1 Weakness; E11.9 Type 2 diabetes mellitus without complications; E78.5 Hyperlipidemia, unspecified; I25.2 Old myocardial infarction; Z85.118 Personal history of other malignant neoplasm of bronchus and lung; Z95.5 Presence of coronary angioplasty implant and graft
CPT/HCPCS: 36415; 74177; 80048; 80053; 82550; 82805; 84145; 85027; 87040; 87081; 87449; 87637; 93005; 93306; 94618; 94640; 97110; 97116; 97530; 99223; 70450; 71045; 71260; 80164; 80235; 81003; 81015; 82607; 82728; 82746; 83540; 83550; 83605; 83735; 83880; 84443; 84484; 85025; 86140; 87899; 93010; 94664; 94667; 94668; 99232; 99233; 99239; J0131; J0696; J1644; J1941; J2930; J3490

== ENCOUNTER → 2022-08-30 08:53 | Outpatient (BNVA) | payer MEDICARE, SELFPAY | PROVIDERS: PCP Family Medicine; Referring Provider Family Medicine; Visit Provider Psychiatry & Neurology Neurology ==

== ENCOUNTER 2023-02-05 20:27 | Inpatient (IN) | payer MEDICARE, SELFPAY ==
[2023-02-05] VITALS (33 sets, daily range): BP systolic 120–180; BP diastolic 49–87; PULSE 65–88; RESP 17–33; TEMP 38.2; O2SAT 91–96
--- NOTE | 2023-02-05 20:30 | RT.EKG_ITS ---
APPROVED REPORT Exam: Resting ECG Reason for Exam: Chest Pain Patient Location: E HR:88 bpm ECG Measurements Heart Rate 88 AXIS KS 153 P 59 QRSd 116 QRS -54 QT 381 T 94 QTc 461 Conclusion Sinus rhythm...normal P axis, V-rate 60- 99 Incomplete left bundle branch block...QRSd>110mS, terminal axis(-90,-1) sinus rhythm, left axis, partial LBBB
--- NOTE | 2023-02-05 20:43 | ED.GENADUL_ITS ---
Discharge Plan Discharge Details Chief Complaint: GenMedical Clinical Impression: COVID-19 Primary Care Provider: Jordon Padron ED Provider: Lit Jackson Home Meds and New Rx's Prescriptions: No Action citalopram 10 mg tablet 20 mg PO DAILY therapeutic multivitamin Tablet 1 tab PO DAILY donepezil 10 mg tablet 10 mg PO DAILY metoprolol succinate 25 mg tablet extended release 24 hr 25 mg PO DAILY Hold Instructions: Hold until PCP f/u and recheck of pulse. melatonin 10 mg Tablet,Disintegrating 15 mg PO HS PRN Rx Instructions: take one and one half tablets = 15mg at bedtime tamsulosin 0.4 mg Capsule 0.4 mg PO DAILY memantine 5 mg tablet 5 mg PO QHS Patient Comments: TAKE 1 TABLET BY MOUTH NIGHTLY ketoconazole 2 % cream 1 applic TOPICAL BID Patient Comments: APPLY CREAM TOPICALLY TO THE RASH ON THE SCALP AND AROUND HAIRLINE TWICE CALVIN LY NEEDED Combivent Respimat 20-100 mcg/actuation Mist 1 puff INHALATION Q6H [place] Plus Cold-Flu 12.5-10-20-650 mg Powder In Packet 1 packet PO PRN PRN divalproex [Depakote ER] 500 mg Tablet Extended Release 24 Hr 500 mg PO BID cefpodoxime 200 mg tablet 200 mg PO BID Qty: 8 0RF Rx Instructions: must administer with a meal/food clopidogrel [Plavix] 75 MG tablet 75 mg PO DAILY pantoprazole 40 MG tablet,delayed release (DR/EC) 40 mg PO DAILY nitroglycerin [Nitrostat] 0.4 MG tablet, sublingual 0.4 mg Sublingual Q5 MIN PRN X3 PRN albuterol sulfate [Proventil HFA] 6.7 GM HFA aerosol inhaler 2 puff Inhalation Q4H PRN PRN aspirin 81 mg Tablet,Delayed Release (Dr/Ec) 81 mg PO DAILY atorvastatin [Lipitor] 40 mg Tablet 40 mg PO DAILY lacosamide 100 mg tablet 100 mg PO BID Qty: 60 0RF Medical Decision Making This dictation utilizes [id number] dictation software and may contain unedited grammatical errors. 87 y/o M presents to ED today with a chief complaint of lethargy, labored breathing, history pneumonia, history fronto-temporal dementia- states she's had to help him to bathroom today, he has had accidents, seems to just respond with yea and seems very tired- has not been drinking enough water lately. Patients' medical history: Coronary artery disease, seizure disorder, [id number] diabetes mellitus, history of UTI, myocardial infarction, history of hyperlipidemia, hypertension, frontotemporal dementia. Family and s ocial history: noncontributory. Pertinent exam findings / vital signs include labored respirations and tachypneic at 30 respirations, febrile, no overt rhonchi or rales, benign abdomen, lethargic. Differential / pathologies of concern include sepsis, pneumonia, UTI, bacteremia. Diagnostic studies of: -CBC, CMP, Lipase, VBG, CRP/ESR, UA, CXR, CT Head wo Contrast, Trop I, BNP, EKG, procalcitonin, Covid/Flu/RSV PCR. -low WBC count -Lactate 2.3 -trop I negative -BNP 593 -CRP 0.9 -procalcitonin negative -Covid-19 positive PCR, running antigen for active infection -UA pending at sign-out -EKG shows Sinus rhythm at 88 beats per minutes with P waves followed by narrow complex QRS, left axis deviation, good R wave progression without ST changes, normal QT QTc -CXR shows no acute abnormality, I do question some infiltrate in hilum of R lung along mediastinal border Interventions of: -IVF, IV Tylenol, Empiric ABX - Cefepime & vancomycin. NSAIDs held due to ASA/clopidogrel. -30cc/kg sepsis bolus initiated based on IBW 1920mL ED Course: 87-year-old male history of pneumonia presents tachypneic and febrile with an elevated lactate, suspect sepsis and respiratory source, giving 30 cc/kg sepsis bolus and rechecking lactate after fluids. Patient appears quite ill with respirations in the 30s. Covid swab resulted positive, consider admission for Covid-19 based on patients work of breathing, tachypnea and risk for deterioration. Discussed with Hospitalist Dr. Pabon who recommends continue hydration, get a d-dimer, antigen test which is pending. Can be admitted for remdesivir therapy. UA pending, possible CTA. Disposition of Covid-19. Medical Records Medical records reviewed: Yes I reviewed the patient's medical records. Imaging Data Radiologic Study: Imaging: CT Scan Radiologist's impression: CT head without shows partial opacification of the ethmoid air cells which may signify sinusitis Radiologic Study #2: Imaging: X-Ray Radiologist's impression: no acute pulmonary processes Lab Data Lab results reviewed: Yes I reviewed the patient's lab results. Labs: 02/05/23 21:50 Blood Blood Culture - Pending 02/05/23 20:45 Blood Blood Culture - Pending Laboratory Tests Range/Units 02/05/23 02/05/23 02/05/23 20:40 20:45 22:26 WBC (4.4-10.8) 10^3/uL 3.71 L RBC (4.36-5.78) 10^6/uL 4.85 Hgb (13.5-17.5) g/dL 15.0 Hct (40.0-50.0) % 45.8 MCV (80-95) fL 94 MCH (27.0-33.0) pg 30.9 MCHC (32.0-36.0) % 32.8 RDW (11.8-14.1) % 14.1 Plt Count (130-400) 10^3/uL 141 MPV (8.0-11.0) fL 10.0 Immature Gran % 0.5 Neutrophils % 64.4 Lymphocytes % 8.1 Monocytes % 19.7 Eosinophils % 7.0 Basophils % 0.3 Nucleated RBC % (0.0-0.3) % 0.0 Absolute Neutrophils (1.2-6.7) 10^3/uL 2.39 Absolute Lymphocytes (1.2-3.4) 10^3/uL 0.30 L Absolute Monocytes (0.1-0.8) 10^3/uL 0.73 Absolute Eosinophils (0.0-0.7) 10^3/uL 0.26 Absolute Basophils (0.0-0.2) 10^3/uL 0.01 ESR (0-20) mm/hr < 1 VBG pH (7.31-7.41) 7.36 VBG pCO2 (41-51) mmHg 54 H VBG pO2 mmHg 30 VBG HCO3 (23-28) mmol/L 31 H VBG Total CO2 (24-29) mmol/L 27 VBG O2 Saturation % 48 VBG Base Excess (-2-3) mmol/L 5 H VBG Lactate (0.6-1.4) mmol/L 2.3 H* Sodium (136-145) mmol/L 139 Potassium (3.5-5.1) mmol/L 4.7 Chloride (98-107) mmol/L 104 Carbon Dioxide (21.0-32.0) mmol/L 29.3 Anion Gap (3-11) mmol/L 5.7 BUN (7-18) mg/dL 12 Creatinine (0.70-1.30) mg/dL 1.2 Est GFR (CKD-EPI 2020) (mL/min/1.73m2) 58.89 Glucose (74-106) mg/dL 154 H Calcium (8.5-10.1) mg/dL 9.2 Magnesium (1.8-2.4) mg/dL 2.1 Total Bilirubin (0.2-1.0) mg/dL 0.6 AST (15-37) U/L 27 ALT (16-63) U/L 28 Alkaline Phosphatase (46-116) U/L 76 Troponin I (<or=60) ng/L < 50 C-Reactive Protein (0.0-0.3) mg/dL 0.91 H NT-Pro-B Natriuret Pep (<300) pg/mL 593 H Total Protein (6.4-8.2) g/dL 7.3 Albumin (3.4-5.0) g/dL 3.9 Lipase (16-77) U/L 40 Procalcitonin ng/mL < 0.1 Urine Color (Yellow) Yellow Urine Clarity (Clear) Clear Urine pH (5-8) 8.5 H Ur Specific [place] (1.005-1.025) 1.025 Urine Protein (Negative) mg/dL 30 H Urine Ketones (Negative) mg/dL Trace H Urine Blood (Negative) Negative Urine Nitrite (Negative) Negative Urine Bilirubin (Negative) Negative Urine Urobilinogen (Up to 0.2) mg/dL 0.2 Ur Leukocyte Esterase (Negative) Negative Urine RBC (0-2) HPF 3-5 H Urine WBC (0-5) HPF Negative Ur Epithelial Cells (Negative) HPF Negative Urine Crystals (Negative) HPF Negative Urine Bacteria (Negative) HPF Rare Urine Casts (Negative) LPF Negative Urine Mucus (Negative) Negative Ur Culture Indicated? No Urine Glucose (Negative) mg/dL Negative COVID-19 Source Nasopharynx SARS-CoV-2 (PCR) (Negative) Positive A Influenza Type A (PCR) (Negative) Negative Influenza Type B (PCR) (Negative) Negative RSV (PCR) (Negative) Negative HPI General Date/Time Provider Initiated Documentation: 02/05/23 20:35 . HPI Narrative: 87 year-old male presents to ED today by POV/wheelchair with staff assist with his with a chief complaint of confusion, difficulty breathing, altered from baseline fronto-temporal dementia with onset noted this morning. Patient's said he has been just saying yes to questioning, she has had to help him go to the bathroom, she seems to think he has been having trouble breathing, and a history of pneumonia. Quality described as patient unable to quantify, no radiation to vomiting, bloody stools, bloody urine, patient does have a fever, has mild cough. Severity is described as unable to quantify. Palliating factors include nothing specific attempted. Provoking factors include nothing specific. Events leading up to the incident/Associated Symptoms: no sick close contacts. Patient not anticoagulated. Related Data Home Medications Medication Instructions Recorded Confirmed albuterol sulfate 90 mcg/actuation 2 puff inhalation Q4H PRN PRN 04/27/16 02/05/23 aerosol inhaler (Proventil HFA) clopidogrel 75 mg tablet (Plavix) 75 mg PO DAILY 04/27/16 02/05/23 nitroglycerin 0.4 mg sublingual 0.4 mg sublingual Q5 MIN PRN X3 PRN 04/27/16 02/05/23 tablet (Nitrostat) pantoprazole 40 mg tablet,delayed 40 mg PO DAILY 04/27/16 02/05/23 release aspirin 81 mg tablet,delayed 81 mg PO DAILY 12/18/19 02/05/23 release atorvastatin 40 mg tablet (Lipitor) 40 mg PO DAILY 12/18/19 02/05/23 citalopram 10 mg tablet 20 mg PO DAILY 02/20/21 02/05/23 therapeutic multivitamin 1 tab PO DAILY 02/20/21 02/05/23 donepezil 10 mg tablet 10 mg PO DAILY 11/26/21 02/05/23 melatonin 10 mg disintegrating 15 mg PO HS PRN 11/26/21 02/05/23 tablet metoprolol succinate 25 mg 25 mg PO DAILY 11/26/21 02/05/23 tablet,extended release 24 hr tamsulosin 0.4 mg capsule 0.4 mg PO DAILY 11/26/21 02/05/23 memantine 5 mg tablet 5 mg PO QHS 06/02/22 02/05/23 lacosamide 100 mg tablet 100 mg PO BID #60 tabs 06/04/22 02/05/23 doxylamin 12.5 mg-PSE 10 mg-DM 20 1 packet PO PRN PRN 08/29/22 08/29/22 mg-acetaminophen 650 mg oral pwdr pk ([place] Plus Cold-Flu) ipratropium 20 mcg-albuterol 100 1 puff inhalation Q6H 08/29/22 08/29/22 mcg/actuation mist for inhalation (Combivent Respimat) ketoconazole 2 % topical cream 1 applic topical BID 08/29/22 08/29/22 divalproex 500 mg tablet,extended 500 mg PO BID 09/01/22 02/05/23 release 24 hr (Depakote ER) cefpodoxime 200 mg tablet 200 mg PO BID #8 tabs 09/02/22 Previous Rx's Medication Instructions Recorded lacosamide 100 mg tablet 100 mg PO BID #60 tabs 06/04/22 cefpodoxime 200 mg tablet 200 mg PO BID #8 tabs 09/02/22 Allergies Allergy/AdvReac Type Severity Reaction Status Date / Time oxycodone [From Percocet] AdvReac Unverified 02/05/23 20:45 Penicillins AdvReac Unverified 02/05/23 20:45 General Stated Complaint: GenMedical FORD: 2 Review of Systems Unobtainable due to mental condition PFSH All Active Problems (Updated 02/05/23 @ 22:23 by Gibran Pabon) Pneumonia (Acute) COPD (chronic obstructive pulmonary disease) (Chronic) Breakthrough seizure (Acute) COVID-19 (Acute) Generalized weakness (Acute) Rib fractures (Acute) Medical History Palliative care patient CAD (coronary artery disease) Seizure disorder H/O non-insulin dependent diabetes mellitus UTI (urinary tract infection) Kidney stones Myocardial infarction Hx of hyperlipidemia HTN (hypertension) Lung cancer Dementia Seizure Surgical History History of tonsillectomy History of coronary artery stent placement Family History Maternal Grandfather Leukemia Social History Smoking/Tobacco Use Status: Never Smoking risk assessment performed?: Yes Alcohol Intake: never Substance use type: does not use Do you feel safe at home: Yes Do you feel safe in your relationship?: Yes Exam Narrative Exam Narrative: GENERAL APPEARANCE: Well-nourished, toxic, lethargic, atraumatic, mild acute distress. SKIN: Warm, pink, diaphoretic, intact, without rashes/lesions/ulcerations. HEAD: Normocephalic, atraumatic, normal hair distribution for gender/age. EYES: Pupils PERRLA, EOMs intact without nystagmus, normal conjunctiva, no exudates on lids/lashes. ENT: Nares patent, no circumoral cyanosis, no facial swelling NECK: Supple, trachea midline, painless cervical ROM. LUNGS/CHEST: Lungs CTA bilaterally- no overt rhonchi/rales/wheezes diffusely, tachypneic, labored respirations, normal A/P diameter, symmetrical expansion, no chest wall deformity HEART (CV/PV): Regular rate and rhythm without murmur, no peripheral edema, no JVD. ABDOMEN: Soft, non-distended, no guarding, no pain response with palpation. MSK: Normal ROM, no swelling/deformity to bilateral UEs or LEs, moving all extremities without weakness, no cyanosis, spine midline without tenderness, normal curvature. NEURO: Mental Status alert to voice, follows commands, fatigued No facial droop, no forehead involvement, tremulous, no overt pronator drift Motor: No focal weakness - strength 5/5 in bilateral UEs and LEs, proximal and distal, symmetric. Sensory: sensation intact to light touch globally. NT PSYCH: euthymic, cooperative, pleasant, appropriate speech Course Vital Signs Vital signs: Vital Signs Temperature 38.2 C H 02/05/23 20:34 Pulse 80 02/05/23 20:34 Respiratory Rate 26 H 02/05/23 20:34 Pulse Oximetry 96 02/05/23 20:34 Temperature 38.2 C H 02/05/23 20:34 Temperature Source Temporal Artery Scan 02/05/23 20:34 Pulse 80 02/05/23 20:34 Respiratory Rate 26 H 02/05/23 20:34 Respiratory Effort Labored 02/05/23 20:41 Blood Pressure Position Supine 02/05/23 20:34 Pulse Oximetry 96 02/05/23 20:34 Oxygen Delivery Method Room Air 02/05/23 20:34 Oxygen Flow Rate 0 02/05/23 20:34
--- NOTE | 2023-02-05 20:45 | DI.CT_ITS ---
Exam(s) CT HEAD WO EXAM: CT HEAD WO CLINICAL HISTORY: confusion. TECHNIQUE: Imaging Protocol: Axial computed tomography images with coronal and sagittal reformatted images were created and reviewed COMPARISON: CT CT HEAD WO from 08/29/2022 FINDINGS: Ventricles and Extra axial spaces: Normal in size and morphology for the patient's age. Hemorrhage: None. Cerebral parenchyma: No acute territorial infarct is identified. There are areas of decreased attenu ation in the white matter consistent with microvascular ischemic disease. Midline shift: None. Brainstem/Cerebellum: Normal. Calvarium: Normal. Visualized Paranasal sinuses/Mastoids: Mild sinus disease. No air-fluid levels. Soft Tissues: Unremarkable. IMPRESSION: No acute intracranial process. RADIATION DOSE DELIVERED: Total DLP DATA REPOSITORY: All CT scans at this facility are submitted to the National Radiology Data Registry (NRDR) Dose Index Registry (DIR) with the [employer] (ACR). RADIATION OPTIMIZATION: All CT scans at this facility use at least one of these dose optimization te chniques: automated exposure control; mA and/or kV adjustment per patient size (includes targeted exa ms where dose is matched to clinical indication); or iterative reconstruction.
--- NOTE | 2023-02-05 20:51 | DI.RAD_ITS ---
Exam(s) XR CHEST 1V IN DI DEPT EXAM: XR CHEST 1V IN DI DEPT CLINICAL HISTORY: cough, tachypnea TECHNIQUE: 2D digital imaging was performed of the chest. One image was obtained. An AP view was ob tained. COMPARISON: CR,XR XR PORTABLE CHEST AP from 08/29/2022 FINDINGS: MEDIASTINUM: Stable. HEART: Normal. PULMONARY VASCULATURE: Normal. LUNGS: Clear. PLEURAL SPACE: No pleural effusion or pneumothorax. BONE:Within normal limits for the patient's age. OTHER FINDINGS:Normal. IMPRESSION: No acute pulmonary findings. DATA REPOSITORY: RADIATION DOSE DELIVERED:
[2023-02-05 20:59] LABS: BE (Venous) 5 mmol/L (-2-3); HCO3 (Venous) 31 mmol/L (23-28); O2 Sat (Venous) 48 %; TCO2 (Venous) 27 mmol/L (24-29); pCO2 (Venous) 54 mmHg (41-51); pH (Venous) 7.36 (7.31-7.41); pO2 (Venous) 30 mmHg
[2023-02-05 21:00] LABS: Abs Immature Grans 0.02 10^3/uL (0.0-0.06); Absolute Basophil Count 0.01 10^3/uL (0.0-0.2); Absolute Eosinophil Count 0.26 10^3/uL (0.0-0.7); Absolute Monocyte Count 0.73 10^3/uL (0.1-0.8); Absolute Neutrophil Count 2.39 10^3/uL (1.2-6.7); Basophils % 0.3; HCT 45.8 % (40.0-50.0); Immature Grans % 0.5; Lymphocytes % 8.1; MCH 30.9 pg (27.0-33.0); MCHC 32.8 % (32.0-36.0); MCV 94 fL (80-95); Monocytes % 19.7; Neutrophils % 64.4; Platelet Count 141 10^3/uL (130-400); RBC 4.85 10^6/uL (4.36-5.78); RDW 14.1 % (11.8-14.1); RDW-SD 48.8 fL; WBC 3.71 10^3/uL (4.4-10.8)
[2023-02-05 21:01] LABS: Lactate 2.3 mmol/L (0.6-1.4)
[2023-02-05 21:22] LABS: ESR < 1 mm/hr (0-20)
[2023-02-05 21:26] LABS: ALT 28 U/L (16-63); AST 27 U/L (15-37); Albumin 3.9 g/dL (3.4-5.0); Alkaline Phosphatase 76 U/L (46-116); Anion Gap 5.7 mmol/L (3-11); BUN 12 mg/dL (7-18); Bilirubin, Total 0.6 mg/dL (0.2-1.0); C-Reactive Protein 0.91 mg/dL (0.0-0.3); CO2 29.3 mmol/L (21.0-32.0); CREATININE 1.2 mg/dL (0.70-1.30); Calcium 9.2 mg/dL (8.5-10.1); Chloride 104 mmol/L (98-107); Estimated GFR 58.89 (mL/min/1.73m2); Glucose 154 mg/dL (74-106); Lipase 40 U/L (16-77); Magnesium 2.1 mg/dL (1.8-2.4); NT-proBNP 593 pg/mL (<300); Potassium 4.7 mmol/L (3.5-5.1); Sodium 139 mmol/L (136-145); Total Protein 7.3 g/dL (6.4-8.2); Troponin I < 50 ng/L (<or=60)
[2023-02-05 21:34] LABS: Procalcitonin < 0.1 ng/mL
[2023-02-05 21:38] LABS: Influenza A PCR Negative (Negative); Influenza B PCR Negative (Negative); RSV PCR Negative (Negative)
--- NOTE | 2023-02-05 21:39 | DI.VRAD_ITS ---
PROCEDURE INFORMATION: Exam: CT Head Without Contrast Exam date and time: 02/05/2023 9:03 PM Age: 87 years old Clinical indication: Other: Confusion TECHNIQUE: Imaging protocol: Computed tomography of the head without contrast. COMPARISON: CT HEAD WO 08/29/2022 4:11 PM FINDINGS: Brain: Volume loss and chronic small vessel ischemic change. No brain edema. No intracranial hemorrhage. Cerebral ventricles: No ventriculomegaly. Paranasal sinuses: Partial opacification of the ethmoid air cells may signify sinusitis. Mastoid air cells: Unremarkable. Bones/joints: Unremarkable. No acute fracture. Soft tissues: Unremarkable. IMPRESSION: 1. Partial opacification of the ethmoid air cells may signify sinusitis. 2. No acute brain findings. Dictated and Authenticated by: Mundo Francis MD. Ordering:EZYNEP Murrieta MD
[2023-02-05] MEDS: ACETAMINOPHEN 1,000 MG/100 ML BTL 400 MG IVPB (21:41)
--- NOTE | 2023-02-05 21:42 | DI.VRAD_ITS ---
PROCEDURE INFORMATION: Exam: XR Chest Exam date and time: 02/05/2023 9:12 PM Age: 87 years old Clinical indication: Cough and tachypnea TECHNIQUE: Imaging protocol: Radiologic exam of the chest. Views: 1 view. COMPARISON: CT CHEST/ABD/PEL W 08/29/2022 4:16 PM FINDINGS: Lungs: Lungs are clear. Low lung volumes. Pleural spaces: Unremarkable. No pleural effusion. No pneumothorax. Heart/Mediastinum: Unremarkable. No cardiomegaly. Bones/joints: Unremarkable. IMPRESSION: No acute findings. Dictated and Authenticated by: Mundo Francis MD. Ordering:ZEYNEP Murrieta MD
[2023-02-05 21:46] LABS: COVID-19 PCR Positive (Negative); Source Nasopharynx
[2023-02-05] MEDS: Normal Saline 1,000 ML 1000 ML IV (21:53)
--- NOTE | 2023-02-05 22:19 | W.PM.HP.N ---
Date of service: 02/05/23 Time of Service: 22:19 Assessment and Plan Assessment and plan (1) COVID-19: Start date: 02/05/23 Status: Acute Assessment and plan: This is an 87-year-old gentleman with advanced dementia and behavioral abnormalities presenting with generalized weakness, fever and slight shortness of breath at home with acute COVID-19 infection. Infection markers were elevated but procalcitonin and lactate were negative with normal to low WBC and no obvious secondary infection. He will be treated with IV remdesivir holding dexamethasone with no hypoxemia. Monitor closely complications. Supportive care. (2) Generalized weakness: Start date: 02/05/23 Status: Acute Assessment and plan: Associated with acute COVID infection without hypoxemia. Patient had infection in fall 2021 with similar symptoms of generalized weakness. (3) Dementia: Assessment and plan: Continue outpatient medical therapy with some behavioral abnormalities. Qualifiers: Dementia behavioral or psychological symptom: with other behavioral disturbance Dementia severity: moderate Dementia type: other frontotemporal dementia Qualified Code(s): G31.09 - Other frontotemporal neurocognitive disorder; F02.B18 - Dementia in other diseases classified elsewhere, moderate, with other behavioral disturbance (4) COPD (chronic obstructive pulmonary disease): Status: Chronic Assessment and plan: The outpatient medical therapy with monitoring. Qualifiers: COPD type: chronic bronchitis Chronic bronchitis type: simple Qualified Code(s): J41.0 - Simple chronic bronchitis (5) CAD (coronary artery disease): Assessment and plan: Continue outpatient medical therapy and monitor. Not active. Qualifiers: Associated angina: without angina Coronary Disease-Associated Artery/Lesion type: [place] artery [place] vs. transplanted heart: [place] heart Qualified Code(s): I25.10 - Atherosclerotic heart disease of [place] coronary artery without angina pectoris (6) H/O non-insulin dependent diabetes mellitus: Assessment and plan: Monitor recovers before meals and bedtime with sensitive insulin coverage. Patient is on no treatment as an outpatient but slight hyperglycemia by review of lab. (7) Seizure: Assessment and plan: On lacosamide will be continued during hospital stay with patient observed closely, no active seizures. History of Present Illness History of Present Illness Chief Complaint: Altered mental status with shortness of breath and weakness. Narrative: This is an 87-year-old male patient who had COVID in the fall 2021 and now presents to the ED with generalized weakness and increased confusion recent onset with chronic frontotemporal dementia which appears to be at baseline at the time of my exam. He did test positive for COVID-19 appears to have an acute infection with fever but no obvious pneumonia or hypoxemia. He was too weak to ambulate and was admitted for treatment of acute COVID-19 infection and monitoring with supportive care. At home his dementia was slightly worse with patient only answering yes to questions but he was more appropriate during my interview. He offers no further complaints. I did review ED notes. does not present at exam. Patient is a full code. Review of Systems Narrative: 13 point review of systems otherwise unrevealing with patient having fever with shortness of breath at home but not presently, other no GI symptoms or respiratory complaints. Patient is unable to answer questions appropriately with his dementia and appears to be comfortable though poor historian. PFSH All Active Problems (Updated 02/06/23 @ 00:40 by Gibran Pabon) Pneumonia (Acute) COPD (chronic obstructive pulmonary disease) (Chronic) Breakthrough seizure (Acute) COVID-19 (Acute) Generalized weakness (Acute) Rib fractures (Acute) Medical History Palliative care patient CAD (coronary artery disease) Seizure disorder H/O non-insulin dependent diabetes mellitus UTI (urinary tract infection) Kidney stones Myocardial infarction Hx of hyperlipidemia HTN (hypertension) Lung cancer Dementia Seizure Surgical History History of tonsillectomy History of coronary artery stent placement Family History Maternal Grandfather Leukemia Social History Smoking/Tobacco Use Status: Never Smoking risk assessment performed?: Yes Alcohol Intake: never Substance use type: does not use Housing: house Do you feel safe at home: Yes Do you feel safe in your relationship?: Yes Meds Allergies and Home Medications Allergies Allergy/AdvReac Type Severity Reaction Status Date / Time oxycodone [From Percocet] AdvReac Unverified 02/05/23 20:45 Penicillins AdvReac Unverified 02/05/23 20:45 Home Medications Medication Instructions Recorded Confirmed Type albuterol sulfate 90 mcg/actuation 2 puff inhalation Q4H PRN PRN 04/27/16 02/05/23 History aerosol inhaler (Proventil HFA) clopidogrel 75 mg tablet (Plavix) 75 mg PO DAILY 04/27/16 02/05/23 History nitroglycerin 0.4 mg sublingual 0.4 mg sublingual Q5 MIN PRN X3 PRN 04/27/16 02/05/23 History tablet (Nitrostat) pantoprazole 40 mg tablet,delayed 40 mg PO DAILY 04/27/16 02/05/23 History release aspirin 81 mg tablet,delayed 81 mg PO DAILY 12/18/19 02/05/23 History release atorvastatin 40 mg tablet (Lipitor) 40 mg PO DAILY 12/18/19 02/05/23 History citalopram 10 mg tablet 20 mg PO DAILY 02/20/21 02/05/23 History therapeutic multivitamin 1 tab PO DAILY 02/20/21 02/05/23 History donepezil 10 mg tablet 10 mg PO DAILY 11/26/21 02/05/23 History melatonin 10 mg disintegrating 15 mg PO HS PRN 11/26/21 02/05/23 History tablet metoprolol succinate 25 mg 25 mg PO DAILY 11/26/21 02/05/23 History tablet,extended release 24 hr tamsulosin 0.4 mg capsule 0.4 mg PO DAILY 11/26/21 02/05/23 History memantine 5 mg tablet 5 mg PO QHS 06/02/22 02/05/23 History lacosamide 100 mg tablet 100 mg PO BID #60 tabs 06/04/22 02/05/23 Rx doxylamin 12.5 mg-PSE 10 mg-DM 20 1 packet PO PRN PRN 08/29/22 08/29/22 History mg-acetaminophen 650 mg oral pwdr pk (Юлия-[place] Plus Cold-Flu) ipratropium 20 mcg-albuterol 100 1 puff inhalation Q6H 08/29/22 08/29/22 History mcg/actuation mist for inhalation (Combivent Respimat) ketoconazole 2 % topical cream 1 applic topical BID 08/29/22 08/29/22 History divalproex 500 mg tablet,extended 500 mg PO BID 09/01/22 02/05/23 History release 24 hr (Depakote ER) cefpodoxime 200 mg tablet 200 mg PO BID #8 tabs 09/02/22 Rx Exam Narrative Exam Narrative: General: Patient appears appropriate for age, pleasant during exam but being a poor historian. He is in no acute distress. He is alert and oriented at least to person and place. HEENT: Normocephalic, eyes with pupils equal and react to light symmetrically, extraocular move intact and sclera anicteric. Moist oral mucosa. Neck: Supple without JVD. Back: Stooped posture without CVA tenderness. Lungs: Fair aeration and clear to auscultation percussion. Heart: Regular rate and rhythm with no appreciable murmur or gallop. Abdomen: Scaphoid contour, soft nontender to palpation with no palpable hepatosplenomegaly. Genitalia/rectal: Exam deferred. Extremities: Without clubbing, cyanosis or grossly pitting edema. Good capillary refill. Skin: Normal color, warm and dry. Neuro: Cranial nerves II through XII gross intact, no focalizing motor deficits or tremor. Psych: Euphoric affect, normal mood. No abnormal thought processes manifested during conversation. Remote memory grossly intact with patient poor historian but appears answer questions appropriately. Recent memory less testable with short conversation but patient's reports worsening recent memory at home. Results Imaging Imaging Studies: Exam: XR Chest Exam date and time: 02/05/2023 9:12 PM Age: 87 years old Clinical indication: Cough and tachypnea TECHNIQUE: Imaging protocol: Radiologic exam of the chest. Views: 1 view. COMPARISON: CT CHEST/ABD/PEL W 08/29/2022 4:16 PM FINDINGS: Lungs: Lungs are clear. Low lung volumes. Pleural spaces: Unremarkable. No pleural effusion. No pneumothorax. Heart/Mediastinum: Unremarkable. No cardiomegaly. Bones/joints: Unremarkable. IMPRESSION: No acute findings. Exam: CT Head Without Contrast Exam date and time: 02/05/2023 9:03 PM Age: 87 years old Clinical indication: Other: Confusion TECHNIQUE: Imaging protocol: Computed tomography of the head without contrast. COMPARISON: CT HEAD WO 08/29/2022 4:11 PM FINDINGS: Brain: Volume loss and chronic small vessel ischemic change. No brain edema. No intracranial hemorrhage. Cerebral ventricles: No ventriculomegaly. Paranasal sinuses: Partial opacification of the ethmoid air cells may signify sinusitis. Mastoid air cells: Unremarkable. Bones/joints: Unremarkable. No acute fracture. Soft tissues: Unremarkable. IMPRESSION: 1. Partial opacification of the ethmoid air cells may signify sinusitis. 2. No acute brain findings. Labs 02/05/23 20:45 02/05/23 20:45 Labs: Laboratory Results - last 24 hr 02/05/23 02/05/23 20:40 20:45 WBC 3.71 L RBC 4.85 Hgb 15.0 Hct 45.8 MCV 94 MCH 30.9 MCHC 32.8 RDW 14.1 Plt Count 141 MPV 10.0 Immature Gran % 0.5 Neutrophils % 64.4 Lymphocytes % 8.1 Monocytes % 19.7 Eosinophils % 7.0 Basophils % 0.3 Nucleated RBC % 0.0 Absolute Neutrophils 2.39 Absolute Lymphocytes 0.30 L Absolute Monocytes 0.73 Absolute Eosinophils 0.26 Absolute Basophils 0.01 ESR < 1 VBG pH 7.36 VBG pCO2 54 H VBG pO2 30 VBG HCO3 31 H VBG Total CO2 27 VBG O2 Saturation 48 VBG Base Excess 5 H VBG Lactate 2.3 H* Sodium 139 Potassium 4.7 Chloride 104 Carbon Dioxide 29.3 Anion Gap 5.7 BUN 12 Creatinine 1.2 Est GFR (CKD-EPI 2020) 58.89 Glucose 154 H Calcium 9.2 Magnesium 2.1 Total Bilirubin 0.6 AST 27 ALT 28 Alkaline Phosphatase 76 Troponin I < 50 C-Reactive Protein 0.91 H NT-Pro-B Natriuret Pep 593 H Total Protein 7.3 Albumin 3.9 Lipase 40 Procalcitonin < 0.1 COVID-19 Source Nasopharynx SARS-CoV-2 (PCR) Positive A Influenza Type A (PCR) Negative Influenza Type B (PCR) Negative RSV (PCR) Negative Last Vital Signs Temp 38.2 C H 02/05/23 20:51 Pulse 80 02/05/23 20:51 Resp 28 H 02/05/23 21:24 BP 173/66 H 02/05/23 20:51 Pulse Ox 95 02/05/23 20:51 Time Spent Time spent with Patient: >75 minutes Time was spent: preparing to see the patient(eg.review tests), obtaining and/or reviewing separately otained hiistory, ordering medications,tests, procedures, indepentently interpreting results and care coordination
[2023-02-05 22:37] LABS: Bilirubin Negative (Negative); Blood Negative (Negative); Clarity Clear (Clear); Glucose Negative (Negative); Ketones Trace mg/dL (Negative); Leukocyte Esterase Negative (Negative); Nitrite Negative (Negative); Specific Gravity 1.025 (1.005-1.025); Urobilinogen 0.2 mg/dL (Up to 0.2); pH 8.5 (5-8)
[2023-02-05 22:39] LABS: WBC Negative HPF (0-5)
[2023-02-05 22:40] LABS: Bacteria Rare HPF (Negative); C & S Indicated? No; Casts Negative LPF (Negative); Crystals Negative HPF (Negative); Epithelial Cells Negative HPF (Negative); Mucus Negative (Negative)
[2023-02-05] MEDS: Normal Saline 1,000 ML 500 ML IV (23:00)
[2023-02-05 23:03] LABS: D-Dimer 592 ng/mlFEU (<500)
[2023-02-05 23:18] LABS: TSH (W/Ref FT4) 1.89 uIU/mL (0.36-3.74)
[2023-02-06] VITALS (9 sets, daily range): BP systolic 101–163; BP diastolic 51–80; PULSE 53–81; RESP 5–20; TEMP 36–38.9; O2SAT 90–96
[2023-02-06] MEDS: Normal Saline 1,000 ML 100 ML IV ×2 (00:21→08:49)
[2023-02-06] MEDS: Albuterol/Ipratropium 3 ML UPD VIAL UPD (00:26)
[2023-02-06] MEDS: REMDESIVIR 200 MG in Normal Saline 250 ML 250 MG IVPB (00:26)
[2023-02-06] MEDS: Water,Injection,Sterile 10 ML VIAL (00:41)
[2023-02-06] MEDS: Melatonin 3 MG TAB 15 MG PO ×2 (00:45→20:03)
[2023-02-06 06:46] LABS: Lactate 1.4 mmol/L (0.6-1.4)
[2023-02-06 06:56] LABS: HCT 39.6 % (40.0-50.0); HGB 13.1 g/dL (13.5-17.5); MCHC 33.1 % (32.0-36.0); MCV 94 fL (80-95); Platelet Count 104 10^3/uL (130-400); RBC 4.23 10^6/uL (4.36-5.78); RDW 14.2 % (11.8-14.1); RDW-SD 48.7 fL
[2023-02-06 07:06] LABS: ALT 24 U/L (16-63); AST 25 U/L (15-37); Alkaline Phosphatase 58 U/L (46-116); Anion Gap 7.3 mmol/L (3-11); BUN 9 mg/dL (7-18); Bilirubin, Total 0.5 mg/dL (0.2-1.0); CO2 27.7 mmol/L (21.0-32.0); Calcium 7.9 mg/dL (8.5-10.1); Chloride 105 mmol/L (98-107); Glucose 111 mg/dL (74-106); Magnesium 1.8 mg/dL (1.8-2.4); Potassium 4.4 mmol/L (3.5-5.1); Sodium 140 mmol/L (136-145); Total Protein 5.7 g/dL (6.4-8.2)
[2023-02-06] MEDS: Tamsulosin 0.4 MG CAPCR PO (08:49)
[2023-02-06] MEDS: Pantoprazole 40 MG TABCR PO (08:50)
[2023-02-06] MEDS: Donepezil 5 MG TAB 10 MG PO (08:50)
[2023-02-06] MEDS: Lacosamide 100 MG TAB PO ×2 (08:50→20:04)
[2023-02-06] MEDS: Aspirin E.C. 81 MG TABEC PO (08:50)
[2023-02-06] MEDS: Divalproex Sodium 500 MG TAB.ER.24H PO ×2 (08:50→20:04)
[2023-02-06] MEDS: Atorvastatin 40 MG TAB PO (08:51)
[2023-02-06] MEDS: Citalopram 10 MG TAB 20 MG PO (08:51)
[2023-02-06] MEDS: Metoprolol CR 25 MG TABCR PO (08:53)
[2023-02-06] MEDS: Acetaminophen 325 MG TAB PO ×2 (08:53→20:04)
[2023-02-06] MEDS: Clopidogrel 75 MG TAB PO (08:53)
[2023-02-06] MEDS: Enoxaparin 40 MG/0.4 ML SYR SC (09:15)
--- NOTE | 2023-02-06 10:56 | PT.INNT ---
Date of service: 02/06/23 PT Notes Visit Reasons: COVID-19 infection, Generalized weakness, dementia RN communication suggests to wait for PT evaluation until tomorrow, assuming he is doing better. He is quite ill and fatigued to realistically participate today.
--- NOTE | 2023-02-06 11:15 | DI.RAD_ITS ---
Exam(s) XR PORTABLE CHEST AP EXAM: XR PORTABLE CHEST AP CLINICAL HISTORY: hypoxemia, fever, COVID, r/o pneumonia TECHNIQUE: 2D digital imaging was performed of the chest. One image was obtained. An AP view was ob tained. COMPARISON: CR,XR XR PORTABLE CHEST AP from 08/29/2022 CR,XR XR CHEST 1V IN DI DEPT from 02/05/2023 FINDINGS: MEDIASTINUM: Normal. HEART: Stable. PULMONARY VASCULATURE: Normal. LUNGS: There are now increased interstitial markings in the lungs suggesting faster congestion or int erstitial infiltrate. No focal consolidating infiltrates are seen. PLEURAL SPACE: No pleural effusion or pneumothorax. BONE:Within normal limits for the patient's age. OTHER FINDINGS:Normal. IMPRESSION: Interval increased interstitial markings which may reflect vascular congestion or interstitial infilt rate. Please correlate clinically. DATA REPOSITORY: RADIATION DOSE DELIVERED:
--- NOTE | 2023-02-06 11:25 | W.PM.PROGNOT ---
Date of Service Date of service: 02/06/23 Time of Service: Assessment and Plan Assessment and plan (1) COVID-19: Start date: 02/05/23 Status: Acute Assessment and plan: This is an 87-year-old gentleman with advanced dementia and behavioral abnormalities presenting with generalized weakness, fever and slight shortness of breath at home with acute COVID-19 infection. Infection markers were elevated but procalcitonin and lactate were negative with normal to low WBC and no obvious secondary infection. However he has been febrile and blood cultures have been sent. I will also add a TICK panel in light of his leukopenia and lymphopenia (althoug this could also be from COVID) He will be treated with IV remdesivir. Dexamethasone 10 mg IVP was ordered when nursing informed me that he was hypoxemic and required 2 lpm oxygen. RT came into the room w/ me and she actually weaned him off his oxygen and his SPO2 was 92% saturation on room air. In light of his COPD and COVID I think an SPO2 >90% is acceptable, I do not think his hypoxemia is from COVID but from his COPD and he may have a component of sleep apnea. Professional time spent interviewing and examining patient, discussion of goals of care with hospital team (care management, nursing and consulting professionals) was 60 minutes. (2) Febrile illness: Status: Acute Assessment and plan: likely d/t COVID, however will check tick panel, cover w/ ceftriaxone and doxycycline pending tick panel and blood cultures. continue Remdesivir as above. (3) COPD (chronic obstructive pulmonary disease): Status: Chronic Assessment and plan: add Spiriva, changed DuoNeb to Combivent; not having an acute exacerbation Qualifiers: COPD type: chronic bronchitis Chronic bronchitis type: simple Qualified Code(s): J41.0 - Simple chronic bronchitis (4) Generalized weakness: Start date: 02/05/23 Status: Acute Assessment and plan: Associated with acute COVID infection without hypoxemia. Patient had infection in fall 2021 with similar symptoms of generalized weakness. (5) Dementia: Assessment and plan: frontotemporal dementia; continue Aricept and Namenda Qualifiers: Dementia type: other frontotemporal dementia Dementia severity: moderate Dementia behavioral or psychological symptom: with other behavioral disturbance Qualified Code(s): G31.09 - Other frontotemporal neurocognitive disorder; F02.B18 - Dementia in other diseases classified elsewhere, moderate, with other behavioral disturbance (6) CAD (coronary artery disease): Qualifiers: Coronary Disease-Associated Artery/Lesion type: [place] artery [place] vs. transplanted heart: [place] heart Associated angina: without angina Qualified Code(s): I25.10 - Atherosclerotic heart disease of [place] coronary artery without angina pectoris (7) H/O non-insulin dependent diabetes mellitus: Assessment and plan: monitor blood glucose AC/HS, covere w/ sliding scale Novolog (8) Seizure: Assessment and plan: On lacosamide will be continued during hospital stay with patient observed closely, no active seizures. Subjective Subjective Interval history since last seen: 87-year-old male with a history of COPD, not requiring oxygen at home, coronary artery disease, type 2 diabetes mellitus, frontotemporal dementia presented with generalized weakness and increasing confusion he tested positive for COVID-19 when he was evaluated emergency department. Patient was found to be febrile at 38.2, as high as 38.9. He has not been hypotensive, w/ BP running hypertensive on admission at 173/66 although today he has been 163/60 to 136/73. He was lethargic during the night. Workup in the ED included CBC that demonstrated leukopenia w/ WBC 3710, and a relative lymphopenia, d-dimer that was elevated at 592, and mild CO2 retention of 54 mm on his VBG. CMP was urnremarkable w/ normal transaminases and normal renal funciton and electrolytes. UA showed 30 mg/dL protein but was negative for bacterial, leukocyte esterase, and nitrites. Patient was admitted for Remdesivir treatment of his COVID-19. CT head w/o contrast no acute process. CXR no pulmonary infiltrates. As he was not hypoxemic last night he was started on Remdesivir but not on decadron. This morning he reportedly was so somnolent that he required sternal rub. For me he is awake and alert albeit somewhat confused. he denies any pain or dyspnea. Exam Narrative Exam Narrative: Patient was lyinig in bed on 2 lpm oxygen per [place], he was alert, oriented to person, but not to time/place or circumstances. He did understand that he is in the hospital but thought he was in [place] but then he was reoriented and said that he is in [facility]. He could not give me the year other than to say it is in the , although he thought that it was February but recalled he had just celebrated Thanksgiving He does not appear to be in any respiratory distress, no use of accessory muscles, no JVD, neck supple and nontender Lungs: clear to auscultation Heart: RRR, no murmur or rub or gallop or thrill Abdomen: soft, nontender, nondistended Extremities: no cyanosis or edema. normal ROM and strength Objective Last Vital Signs Temp 38.4 C H 02/06/23 10:09 Pulse 80 02/06/23 10:09 Resp 20 02/06/23 10:09 BP 136/73 02/06/23 10:09 Pulse Ox 92 02/06/23 10:09 Laboratory Results - last 24 hr 02/05/23 02/05/23 02/05/23 20:40 20:45 22:26 WBC 3.71 L RBC 4.85 Hgb 15.0 Hct 45.8 MCV 94 MCH 30.9 MCHC 32.8 RDW 14.1 Plt Count 141 MPV 10.0 Immature Gran % 0.5 Neutrophils % 64.4 Lymphocytes % 8.1 Monocytes % 19.7 Eosinophils % 7.0 Basophils % 0.3 Nucleated RBC % 0.0 Absolute Neutrophils 2.39 Absolute Lymphocytes 0.30 L Absolute Monocytes 0.73 Absolute Eosinophils 0.26 Absolute Basophils 0.01 ESR < 1 D-Dimer 592 H VBG pH 7.36 VBG pCO2 54 H VBG pO2 30 VBG HCO3 31 H VBG Total CO2 27 VBG O2 Saturation 48 VBG Base Excess 5 H VBG Lactate 2.3 H* Sodium 139 Potassium 4.7 Chloride 104 Carbon Dioxide 29.3 Anion Gap 5.7 BUN 12 Creatinine 1.2 Est GFR (CKD-EPI 2020) 58.89 Glucose 154 H Calcium 9.2 Magnesium 2.1 Total Bilirubin 0.6 AST 27 ALT 28 Alkaline Phosphatase 76 Troponin I < 50 C-Reactive Protein 0.91 H NT-Pro-B Natriuret Pep 593 H Total Protein 7.3 Albumin 3.9 Lipase 40 Procalcitonin < 0.1 TSH 1.89 Urine Color Yellow Urine Clarity Clear Urine pH 8.5 H Ur Specific [place] 1.025 Urine Protein 30 H Urine Ketones Trace H Urine Blood Negative Urine Nitrite Negative Urine Bilirubin Negative Urine Urobilinogen 0.2 Ur Leukocyte Esterase Negative Urine RBC 3-5 H Urine WBC Negative Ur Epithelial Cells Negative Urine Crystals Negative Urine Bacteria Rare Urine Casts Negative Urine Mucus Negative Ur Culture Indicated? No Urine Glucose Negative COVID-19 Source Nasopharynx SARS-CoV-2 (PCR) Positive A Influenza Type A (PCR) Negative Influenza Type B (PCR) Negative RSV (PCR) Negative 02/05/23 02/06/23 22:55 06:40 WBC 2.90 L RBC 4.23 L Hgb 13.1 L Hct 39.6 L MCV 94 MCH 31.0 MCHC 33.1 RDW 14.2 H Plt Count 104 L MPV 10.0 Immature Gran % Neutrophils % Lymphocytes % Monocytes % Eosinophils % Basophils % Nucleated RBC % Absolute Neutrophils Absolute Lymphocytes Absolute Monocytes Absolute Eosinophils Absolute Basophils ESR D-Dimer VBG pH VBG pCO2 VBG pO2 VBG HCO3 VBG Total CO2 VBG O2 Saturation VBG Base Excess VBG Lactate 1.0 1.4 Sodium 140 Potassium 4.4 Chloride 105 Carbon Dioxide 27.7 Anion Gap 7.3 BUN 9 Creatinine 1.0 Est GFR (CKD-EPI 2020) 73.30 Glucose 111 H Calcium 7.9 L Magnesium 1.8 Total Bilirubin 0.5 AST 25 ALT 24 Alkaline Phosphatase 58 Troponin I C-Reactive Protein NT-Pro-B Natriuret Pep Total Protein 5.7 L Albumin 3.0 L Lipase Procalcitonin TSH Urine Color Urine Clarity Urine pH Ur Specific [place] Urine Protein Urine Ketones Urine Blood Urine Nitrite Urine Bilirubin Urine Urobilinogen Ur Leukocyte Esterase Urine RBC Urine WBC Ur Epithelial Cells Urine Crystals Urine Bacteria Urine Casts Urine Mucus Ur Culture Indicated? Urine Glucose COVID-19 Source SARS-CoV-2 (PCR) Influenza Type A (PCR) Influenza Type B (PCR) RSV (PCR) Time Spent with Patient Time Spent with Patient: >50 minutes Time was spent: preparing to see the patient(eg.review tests), obtaining and/or reviewing separately otained hiistory, ordering medications,tests, procedures, referring, communicating with other health home care manager, indepentently interpreting results and care coordination
[2023-02-06 11:41] LABS: BE (Venous) 0 mmol/L (-2-3); HCO3 (Venous) 25 mmol/L (23-28); O2 Sat (Venous) 95 %; TCO2 (Venous) 22 mmol/L (24-29); pCO2 (Venous) 37 mmHg (41-51); pH (Venous) 7.43 (7.31-7.41); pO2 (Venous) 82 mmHg
[2023-02-06 11:54] LABS: Lactate 2.1 mmol/L (0.6-1.4)
[2023-02-06 11:57] LABS: Ammonia 34 umol/L (11-32)
[2023-02-06] MEDS: Ipratropium/Albuterol 4 GM 120 PUFF INH IH ×3 (11:58→20:04)
--- NOTE | 2023-02-06 12:20 | DI.VRAD_ITS ---
PROCEDURE INFORMATION: Exam: XR Chest Exam date and time: 02/06/2023 12:01 PM Age: 87 years old Clinical indication: Other: Hypoxemia, fever, covid, R/O pneumonia TECHNIQUE: Imaging protocol: Radiologic exam of the chest. Views: 1 view. COMPARISON: CR XR CHEST 1V IN DI DEPT 05/02/2023 21:12 FINDINGS: Tubes, catheters and devices: EKG wires overlie the chest. Lungs: Coarse increased perihilar and interstitial markings extending to the periphery consistent with vascular congestion or interstitial infiltrate. No focal consolidation. Low lung volumes. Pleural spaces: Unremarkable. No pleural effusion. No pneumothorax. Heart/Mediastinum: Stable cardiomediastinal silhouette. Vasculature: Atherosclerotic disease. Bones/joints: Degenerative changes of the shoulders and spine. IMPRESSION: Prominent increased interstitial markings consistent with vascular congestion or interstitial infiltrate. Dictated and Authenticated by: Dipika Pond MD. Ordering:[facility] Khari Mathew MD
[2023-02-06] MEDS: cefTRIAXone 1 GM/50 ML BAG IVPB (12:35)
[2023-02-06] MEDS: Dexamethasone 10 MG/ML VIAL IVP (12:35)
--- NOTE | 2023-02-06 13:10 | TELEP.MEDR_ITS ---
Date of service: 02/06/23 Time of Service: 13:10 Telepharmacy Home Med Rec Allergies Allergies: oxycodone [From Percocet] Adverse Reaction (Unverified 02/05/23 20:45) Penicillins Adverse Reaction (Unverified 02/05/23 20:45) Interview Person Interviewed: , Aletha Changes made to Home Medication List: DELETIONS: Metoprolol was tapered to stop per Aletha Recommended Changes Attestation: The home medication list is now updated to the best of my knowledge and is ready to be reconciled by the provider. Please contact the [facility] Pharmacist at for any questions.
[2023-02-06] MEDS: DOXYCYCLINE 100 MG in Normal Saline 100 ML IVPB (14:45)
--- NOTE | 2023-02-06 15:34 | INITIAL_ITS ---
Date of service: 02/06/23 Time of Service: 15:34 Care Management Initial Assmt Initial Assessment REASON FOR HOSPITALIZATION:: Covid 19, weakness, dementia PREVIOUS FUNCTIONAL STATUS/SOCIAL/FAMILY SUPPORTS:: Dimitrios lives in [place] with his , Aletha. They have four children; one son at the age of 19 from a motorcycle accident. 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 He has been independent and active at baseline. CURRENT FUNCTIONAL STATUS:: Dimitrios has covid 19, therefore CM is not able to meet with him in person. Per report, he was 88% on RA; nursing put him on 2LO2, and his sats improved to 92%. He has a fever, and has been lethargic today. He is being treated with remdesivir for covid. Palliative care was consulted, as well as PT and OT. CM will continue to follow. ADVANCE DIRECTIVES:: On file; Aletha listed as HCA; Cecilia (daughter) listed as alternate HCA. Has patient been provided with info about the portal/API?: Yes Did the patient sign up for the portal?: No CODE STATUS:: Full Code INSURANCE COVERAGE / FINANCIAL ISSUES:: [facility]. [facility] supplement. CURRENT HOME/COMMUNITY SERVICES/EQUIPMENT:: cane. PRIMARY CARE PHYSICIAN:: Jordon Padron POTENTIAL DISCHARGE NEEDS:: Evaluations for further needs, follow up appoi ntments. PATIENT/FAMILY EDUCATION NEEDS:: Review discharge instructions and limitations, discussion of self care needs including ask me three. ANTICIPATED BARRIERS TO DISCHARGE:: None identified. TRANSPORTATION:: Via private vehicle by family. PLAN:: Anticipate Dimitrios will return home once medically cleared. His will drive him home via private vehicle when ready. He will follow up with his PCP and discharge plan of care. CM will continue to follow. PFSH All Active Problems (Updated 02/06/23 @ 12:07 by Quincy Lucia MD) Febrile illness (Acute) Pneumonia (Acute) COPD (chronic obstructive pulmonary disease) (Chronic) Breakthrough seizure (Acute) COVID-19 (Acute) Generalized weakness (Acute) Rib fractures (Acute) Medical History Palliative care patient CAD (coronary artery disease) Seizure disorder H/O non-insulin dependent diabetes mellitus UTI (urinary tract infection) Kidney stones Myocardial infarction Hx of hyperlipidemia HTN (hypertension) Lung cancer Dementia Seizure Surgical History History of tonsillectomy History of coronary artery stent placement Family History Maternal Grandfather Leukemia Social History Smoking/Tobacco Use Status: Never Smoking risk assessment performed?: Yes Alcohol Intake: never Substance use type: does not use Housing: house Do you feel safe at home: Yes Do you feel safe in your relationship?: Yes
[2023-02-06] MEDS: Furosemide 40 MG/4 ML VIAL IVP (20:07)
[2023-02-06] MEDS: Memantine 5 MG TAB PO (20:22)
[2023-02-07] VITALS (7 sets, daily range): BP systolic 122–138; BP diastolic 61–75; PULSE 52–83; RESP 16–21; TEMP 35.6–36.6; O2SAT 92–97
[2023-02-07] MEDS: DOXYCYCLINE 100 MG in Normal Saline 100 ML IVPB ×2 (01:51→14:01)
[2023-02-07] MEDS: REMDESIVIR 100 MG in Normal Saline 250 ML 250 MG IVPB (02:50)
[2023-02-07 07:32] LABS: BUN 18 mg/dL (7-18); C-Reactive Protein 5.02 mg/dL (0.0-0.3); Calcium 8.3 mg/dL (8.5-10.1); Chloride 103 mmol/L (98-107); Glucose 122 mg/dL (74-106); NT-proBNP 1102 pg/mL (<300); Potassium 4.1 mmol/L (3.5-5.1); Sodium 138 mmol/L (136-145)
--- NOTE | 2023-02-07 07:39 | W.PALLCONSUL ---
Date of service: 02/07/23 Time of Service: 07:39 History of Present Illness History of Present Illness Chief Complaint: weakness and hypoxia Narrative: I am meeting at in his room this morning. Ed is an 87-year-old man who came into the hospital and was positive for COVID and hypoxic. He has been receiving remdesivir and states that he is feeling better but he is still very weak. I am meeting with him specifically because of his CODE STATUS etc. I had met with Ed in the past without his Aletha there. We had reached out to them outpatient and they declined visits. Ed said again that he does not want CPR but he wants his Aletha to help make the decision. He states that they have been for 71 years and that they have always made decisions together. When I asked if he was at age 16 his reply was yes. He also states that his was 16 but turned 17 soon after marriage. On reflection he said maybe he was 17 or 18 when he got . When I talked to him about his function etc. his reply was that he is not about to go outside and shovel the dishes. 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 Unfortunately no one answered the phone and that is the only phone number that I have on file. I have looked at his advanced directives, but also heard that he did not want to be going through CPR. I definitely think his Aletha needs to weigh in on this and perhaps his daughter Hilda. I left a message that I like to speak with them, and plan to call them back again later today. Called again - LMOM. Called DEANNA Gabriel - she will relay the message Review of Systems Constitutional Constitutional: Reports body ache(s), Reports difficulty sleeping, Reports fatigue, Reports lethargy and Reports weakness Eyes Eyes: Reports irritation ENT Ears, Nose, Mouth, and Throat: Reports disequilibrium Cardiovascular Cardiovascular: Denies chest pain, Reports lightheadedness, Reports dyspnea and Reports dyspnea on exertion Respiratory Respiratory: Reports dyspnea and Reports dyspnea on exertion Genitourinary Genitourinary: Reports system reviewed and no additional complaints, except as documented Musculoskeletal Musculoskeletal: Reports myalgias Neurologic Neurologic: Reports memory loss, Reports disequilibrium and Reports weakness Psychiatric Psychiatric: Reports memory loss Endocrine Endocrine: Reports fatigue PFSH All Active Problems (Updated 02/06/23 @ 12:07 by Quincy Lucia MD) Febrile illness (Acute) Pneumonia (Acute) COPD (chronic obstructive pulmonary disease) (Chronic) Breakthrough seizure (Acute) COVID-19 (Acute) Generalized weakness (Acute) Rib fractures (Acute) Medical History Palliative care patient CAD (coronary artery disease) Seizure disorder H/O non-insulin dependent diabetes mellitus UTI (urinary tract infection) Kidney stones Myocardial infarction Hx of hyperlipidemia HTN (hypertension) Lung cancer Dementia Seizure Surgical History History of tonsillectomy History of coronary artery stent placement Family History Maternal Grandfather Leukemia Social History Smoking/Tobacco Use Status: Never Smoking risk assessment performed?: Yes Alcohol Intake: never Substance use type: does not use Housing: house Do you feel safe at home: Yes Do you feel safe in your relationship?: Yes Exam Const General: cooperative, comfortable and frail appearing Nutritional Appearance: average body habitus Orientation: awake, oriented to person and confused Limitations: physical limitations HENMT Head: normal to inspection Ears: hearing grossly normal bilaterally (I did need to speak up) General nose exam: external nose normal Mouth: oral mucosae normal Eyes General: appearance normal, both eyes and all related structures Chest Chest: normal inspection of the chest Resp Effort & Inspection: able to speak in complete sentences and cough Auscultation: diminished lung sounds and wheezes Cardio Rate: bradycardic GI Palpation: soft Back/Spine/Pelvis Back: no CVA tenderness Neuro General: patient awake and patient confused Cognition: abnormal cognition Speech: speech normal Psych Appearance: other Speech and Movement: speech clear Mood: congruent mood Attitude: cooperative Thought Process: loose association Insight: poor Judgment: poor Results Last Vital Signs Temp 97.3 F L 02/07/23 03:30 Pulse 52 L 02/07/23 03:30 Resp 18 02/07/23 03:30 BP 137/66 02/07/23 03:30 Pulse Ox 95 02/07/23 03:30 Labs 02/06/23 06:40 02/07/23 06:10 Labs: Laboratory Results - last 24 hr 02/06/23 02/06/23 02/07/23 11:35 11:48 06:10 VBG pH 7.43 H VBG pCO2 37 L VBG pO2 82 VBG HCO3 25 VBG Total CO2 22 L VBG O2 Saturation 95 VBG Base Excess 0 VBG Lactate 2.1 H Sodium 138 Potassium 4.1 Chloride 103 Carbon Dioxide 25.0 Anion Gap 10.0 BUN 18 Creatinine 1.0 Est GFR (CKD-EPI 2020) 73.30 Glucose 122 H Calcium 8.3 L Ammonia 34 H C-Reactive Protein Cancelled NT-Pro-B Natriuret Pep 02/07/23 02/07/23 06:10 06:10 VBG pH VBG pCO2 VBG pO2 VBG HCO3 VBG Total CO2 VBG O2 Saturation VBG Base Excess VBG Lactate Sodium Potassium Chloride Carbon Dioxide Anion Gap BUN Creatinine Est GFR (CKD-EPI 2020) Glucose Calcium Ammonia C-Reactive Protein 5.02 H NT-Pro-B Natriuret Pep Cancelled [address] FINDINGS: Ventricles and Extra axial spaces: Normal in size and morphology for the patient's age. Hemorrhage: None. Cerebral parenchyma: No acute territorial infarct is identified. There are areas of decreased attenuation in the white matter consistent with microvascular ischemic disease. Midline shift: None. Brainstem/Cerebellum: Normal. Calvarium: Normal. Visualized Paranasal sinuses/Mastoids: Mild sinus disease. No air-fluid levels. Soft Tissues: Unremarkable. IMPRESSION: No acute intracranial process. Chest XR FINDINGS: MEDIASTINUM: Normal. HEART: Stable. PULMONARY VASCULATURE: Normal. LUNGS: There are now increased interstitial markings in the lungs suggesting faster congestion or interstitial infiltrate. No focal consolidating infiltrates are seen. PLEURAL SPACE: No pleural effusion or pneumothorax. BONE:Within normal limits for the patient's age. OTHER FINDINGS:Normal. IMPRESSION: Interval increased interstitial markings which may reflect vascular congestion or interstitial infiltrate. Please correlate clinically.
[2023-02-07] MEDS: Atorvastatin 40 MG TAB PO (07:52)
[2023-02-07] MEDS: Tamsulosin 0.4 MG CAPCR PO (07:52)
[2023-02-07] MEDS: Enoxaparin 40 MG/0.4 ML SYR SC (07:52)
[2023-02-07] MEDS: Citalopram 10 MG TAB 20 MG PO (07:52)
[2023-02-07] MEDS: Donepezil 5 MG TAB 10 MG PO (07:53)
[2023-02-07] MEDS: Pantoprazole 40 MG TABCR PO (07:53)
[2023-02-07] MEDS: Clopidogrel 75 MG TAB PO (07:53)
[2023-02-07] MEDS: Divalproex Sodium 500 MG TAB.ER.24H PO ×2 (07:54→22:08)
[2023-02-07] MEDS: Lacosamide 100 MG TAB PO ×2 (07:54→22:08)
[2023-02-07] MEDS: Aspirin E.C. 81 MG TABEC PO (07:54)
[2023-02-07] MEDS: Ipratropium/Albuterol 4 GM 120 PUFF INH IH ×4 (08:06→20:38)
[2023-02-07] MEDS: Tiotropium Bromide-Respimat 10 PUFF INH 2 PUFF IH (08:07)
--- NOTE | 2023-02-07 09:30 | OT.INIE ---
Occupational Therapy Notes Inpatient Occupational Therapy Evaluation Date: 02/07/23 Referring Doctor:Gibran Pabon MD OT Orders: Urgent Precautions: Fall, standard, full PATIENT PROFILE/ADMITTING DIAGNOSIS: Pt is a 87 year old male who was admitted to med surg with the dx of febrile illness, pneumonia, COPD, covid-19, generalized weakness, rib fx. Past Medical History: All Active Problems (Updated 02/06/23 @ 00:40 by Gibran Pabon) Pneumonia (Acute) COPD (chronic obstructive pulmonary disease) (Chronic) Breakthrough seizure (Acute) COVID-19 (Acute) Generalized weakness (Acute) Rib fractures (Acute) Medical History Palliative care patient CAD (coronary artery disease) Seizure disorder H/O non-insulin dependent diabetes mellitus UTI (urinary tract infection) Kidney stones Myocardial infarction Hx of hyperlipidemia HTN (hypertension) Lung cancer Dementia Seizure Surgical History History of tonsillectomy History of coronary artery stent placement Social History/Home Situation: Pt lives with his in a private home. He states that he is (I) with his ADLs. He notes that he lives in [place] at first he reports that he lives in [place] but later clarifies that this is not the case. Equipment owned/DME: FWW, cane, shower seat, grab bars SUBJECTIVE: Pt was sitting in bed, he states that he is doing well and hopes to return home soon. OBJECTIVE: General Observation: Pleasant and agreeable to initial evaluation. Mental Status: A&Ox2 Pain: c/o pain in sides/back ROM: RUE AROM WFL L UE AROM WFL STRENGTH: RUE weak but symmetrical personal counselor strength LUE weak but symmetrical personal counselor strength FUNCTIONAL MOBILITY/ADLS: Supine-sit (I) Sit-supine (I) BATHING max (A) set up/clean up and min vc for task initiation Bathing UE (I) face and (B) UE, max (A) back, Bathing LE (I) kike area, max (A) lower legs DRESSING in seated position Dressing UE Mod (A) don and doffing hospital gown Dressing LE Max (A) donning socks but pt states that he can do this GROOMING Seated in bed (I) with brushing hair TOILETING min (A) with urinal, pt is incontinent during session. EATING sitting in bed (I) but pt states that he is not really hungry BALANCE: Static sitting Good Dynamic Sitting Good SPECIAL TESTS: Daily Activity Limitations Standardized Measure [facility] AM -PAC ?6 clicks? Daily Activity Inpatient Short Form: Raw score: 22 Standardized score: 44.27 CMS score: 32.79% INFORMED CONSENT/EDUCATION: Pt instructed in purpose of OT Consult and plan of care. ASSESSMENT: Patient is a 87-year-old male referred to occupational therapy services with diagnosis of febrile illness, pneumonia, COPD, covid-19, generalized weakness, rib fx. Patient presents with clinical signs and symptoms consistent with dx, as demonstrated by the following impairment level findings/functional limitations: Impairments in ADL/IADL and leisure activities, decreased functional activity tolerance, decreased safety awareness, increased confusion, min vc for task initiation. AMPAC score 22 Patient is assessed as a Moderate 15727 complexity based on the following: History: see above Examination: see functional limitations as noted above Presentation: evolving Decision Making: AMPAC score 22 GOALS Goals x1 week 1. ORal Hygiene- (I) 2. Dressing- seated in chair (I) 3. Bathing- standing at sink (I) 4. Toileting- on toilet (I) 5. Eating- seated (I) PLAN OF CARE/TREATMENT PLAN: 1x/day, 5 days/ week x 1week Initiate Occupational Therapy Services for bathing, dressing, grooming, toileting, eating, transfer training. DISCHARGE RECOMMENDATIONS- Home with services and support in the home setting to (A) pt with ADLs as needed and promote increased safety awareness. TREATMENT TIME/MINUTES/CODES 85222, [id number], 30 minutes Fern Wu OTR/L [facility] [place], [place]
[2023-02-07] MEDS: cefTRIAXone 1 GM/50 ML BAG IVPB (11:46)
--- NOTE | 2023-02-07 11:51 | PT.INIE ---
PT Notes Visit Reasons: COVID-19 infection, Generalized weakness, dementia Physical Therapy Inpatient Initial Evaluation Date: 02/07/2023 Referring Doctor: Gibran Pabon MD PT Orders: PT CONSULT: Exacerbation chronic cond Precautions: Fall. Airborne/Droplet precautions in place for COVID-19. Activity as tolerated. Seizure precautions in place. Patient Profile/Admitting Diagnosis: Dimitrios is an 87-year-old male with dementia admitted for management of generalized weakness, COVID-19 infection, COPD exacerbation, CAD, history of NIDDM, and seizure. PMHX: All Active Problems (Updated 02/06/23 @ 00:40 by Gibran Pabon) Pneumonia (Acute) COPD (chronic obstructive pulmonary disease) (Chronic) Breakthrough seizure (Acute) COVID-19 (Acute) Generalized weakness (Acute) Rib fractures (Acute) Medical History Palliative care patient CAD (coronary artery disease) Seizure disorder H/O non-insulin dependent diabetes mellitus UTI (urinary tract infection) Kidney stones Myocardial infarction Hx of hyperlipidemia HTN (hypertension) Lung cancer Dementia Seizure Surgical History History of tonsillectomy History of coronary artery stent placement Social History/Home Situation: Lives with in a private home with ramp to enter. Did not use an assistive ambulatory device for indoor ambulation . Equipment Owned/DME: FWW, Subjective: Pleasant and cooperative. States that he hopes to go home as he is worried that his may need to worry about firewood. Objective: General Observation: Resting in bed. IV through right UE. Mental Status: Alert and oriented as to person and purpose. Able to pay attention, focus, and respond appropriately. Pain: Denies Vital Signs: BP 122/62 mmHg, CT 65 bpm, 02 Sat 97% on RA ROM: Right Upper Extremity: Shoulder Flexion WFL. Shoulder abduction WFL. Elbow flexion WFL. Wrist flexion WFL. Functional opening and closing of hand WFL. Left Upper Extremity: Shoulder Flexion WFL. Shoulder abduction WFL. Elbow flexion WFL. Wrist flexion WFL. Functional opening and closing of hand WFL. Right Lower Extremity: Hip flexion WFL. Hip abduction WFL. Knee flexion WFL. Ankle dorsiflexion WFL. Ankle plantarflexion WFL. Left Lower Extremity: Hip flexion WFL. Hip abduction WFL. Knee flexion WFL. Ankle dorsiflexion WFL. Ankle plantarflexion WFL. Strength: Right Upper Extremity: Shoulder flexors 4/5. Shoulder abductors 4/5. Elbow flexors 5/5. Elbow extensors 5/5. Cocoa Mill Operator strong. Left Upper Extremity: Shoulder flexors 4/5. Shoulder abductors 4/5. Elbow flexors 5/5. Elbow extensors 5/5. Cocoa Mill Operator strong. Right Lower Extremity: Hip flexors 4-/5. Hip abductors 4-/5. Knee flexors 4/5. Knee extensors 4/5. Ankle dorsiflexors 4-/5. Ankle plantarflexors 4-/5. Left Lower Extremity: Hip flexors 4-/5. Hip abductors 4-/5. Knee flexors 4/5. Knee extensors 4/5. Ankle dorsiflexors 4-/5. Ankle plantarflexors 4-/5. Bed Mobility/Transfers: Minimal cues only for safety and IV ple management Rolling with stand by assist Supine to sit stand by assist Sit to supine stand by assist Sit to stand stand by assist Stand to sit stand by assist Bed to reclining chair stand by assist Reclining chair to bed stand by assist Gait: Tolerated in room ambulation of about 30 feet without an assistive device requiring only standby assist with no loss of balance and without report of pain, headache, and lightheadedness throughout session. Balance: Static Sitting: Normal Dynamic Sitting: Normal Static Standing: Fair Dynamic Standing: Fair Special Tests: Mobility Limitations Standardized Measure [facility] AM-PAC 6 clicks Basic Mobility Inpatient Short Form: Raw Score: 23 CMS Score: 11% deficit 30-Second chair rise: 10x Informed Consent/Education: Patient was instructed in purpose of PT consult and plan of care. Agreeable to proceed with established PT POC to achieve personal goals. Assessment: Patient presents with clinical signs and symptoms consistent with current/admitting diagnoses that have resulted to mobility limitations, gait instability, generalized weakness, and overall ADL decline as demonstrated by the following impairment level findings: 1. Mild impaired activity tolerance 2. Minimal shortness of breath Impairments are contributing to the following functional limitations: 1. Increased completion time for mobility ADL performance Patient is assessed as a 34035 complexity based on the following: History: 87-year-old male with past medical history as indicated above Examination: Demonstrable impairment in strength, balance, and mobility level with underlying impairments and functional limitations as exhibited above as well as deficit score of 11% utilizing the [facility] Mobility Inpatient Short Form Presentation: Evolving Decision Makin moderate complexity Goals: Goals X1 week 1. Supine-Sit independent 2. Sit-Supine independent 3. Sit-Stand independent 4. Stand-Sit independent with no AD 5. Bed-Chair independent with no AD 6. Chair-Bed independent with no AD 7. Independent gait on level surface with use of no AD for at least 150 feet without report of pain nor dyspnea 8. Good static and dynamic standing balance/tolerance Plan of Care/Treatment Plan: 1 painx/day, 7 days/week x 1 week. Plan of care has been reviewed with the SURVEY RESEARCH TEACHER providing the service under Physical Therapy direction. Initiate Physical Therapy intervention for pain management as needed, strengthening, bed mobility, transfers, gait, stairs, balance training, and use of assistive device. DISCHARGE RECOMMENDATIONS: [] Home with no services [] [X] Home with services. Patient will benefit from home health PT services in order to progress mobility level using no assistive ambulatory device, assess home safety, identify additional equipment needs, and establish a functional maintenance program that will increase ability of patient to remain at home. [] Home with outpatient PT [] [] SNF for continued rehabilitation [] [] [facility] [] [] SNF versus LTC based on ability to participate and progress [] TREATMENT CODE/TIME: 76252 x 22 minutes for 1 unit beginning at 11:51 AM. Thank you for the opportunity to participate in the care of this patient. Marly Esposito PT, DPT, CLT [facility] [place], [place]
--- NOTE | 2023-02-07 13:42 | PGE_ITS ---
Date of Service Date of service: 02/07/23 Time of Service: 13:42 Assessment and Plan Assessment and plan (1) COVID-19: Start date: 02/05/23 Status: Acute Assessment and plan: This is an 87-year-old gentleman with advanced dementia and behavioral abnormalities presenting with generalized weakness, fever and slight shortness of breath at home with acute COVID-19 infection. Infection markers were elevated but procalcitonin and lactate were negative with normal to low WBC and no obvious secondary infection. However he has been febrile and blood cultures have been sent. I will also add a TICK panel in light of his leukopenia and lymphopenia (althoug this could also be from COVID) Continue ceftriaxone and doxycycline and remdesivir. If he remains afebrile and not hypoxemic I think he will be discharged home tomorrow. I would like him to complete 3 days of remdesivir which she will complete at 2 AM tomorrow morning. If need be he can be sent home on short-term course of antibiotics although I see no evidence of bacterial infection chest x-ray showed no infiltrates and so far blood cultures have shown no growth. And urine was unremarkable for urinary tract infection. Tick panel was pending at this time (2) Febrile illness: Status: Acute Assessment and plan: likely d/t COVID, however will check tick panel, cover w/ ceftriaxone and doxycycline pending tick panel and blood cultures. continue Remdesivir as above. (3) COPD (chronic obstructive pulmonary disease): Status: Chronic Assessment and plan: add Spiriva, changed DuoNeb to Combivent; not having an acute exacerbation Qualifiers: COPD type: chronic bronchitis Chronic bronchitis type: simple Qualified Code(s): J41.0 - Simple chronic bronchitis (4) Generalized weakness: Start date: 02/05/23 Status: Acute Assessment and plan: Associated with acute COVID infection without hypoxemia. Patient had infection in fall 2021 with similar symptoms of generalized weakness. 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 transplanted heart: [place] heart Associated angina: without angina Qualified Code(s): I25.10 - Atherosclerotic heart disease of [place] coronary artery without angina pectoris (7) H/O non-insulin dependent diabetes mellitus: Assessment and plan: monitor blood glucose AC/HS, covere w/ sliding scale Novolog (8) Seizure: Assessment and plan: On lacosamide will be continued during hospital stay with patient observed closely, no active seizures. Subjective Subjective Interval history since last seen: Patient is doing markedly better he is not short of breath he does have a bit of a runny nose but otherwise he feels much better. He is ambulating around the room. He has been afebrile since yesterday afternoon. I did start him on doxycycline and ceftriaxone yesterday empirically but his fever very well may have been from his COVID. He has had 2 doses of remdesivir he got the 200 mg d ose yesterday and 100 mg dose this morning around 2 AM. He will get a third dose tonight and I think if he remains afebrile and not hypoxemic then I think he can be discharged tomorrow morning. Exam Narrative Exam Narrative: Patient is up walking around the room he does have a bit of a runny nose some sneezing but otherwise feels fine no cough no shortness of breath no chest discomfort Lungs are clear to auscultation Heart regular rate and rhythm Extremities without edema Cognitively I thought maybe was a little confused but I think a lot of it was he was misunderstanding what I was saying because I was masked up with an N95 and a surgical facemask. Once I was able to get close to him and talk loudly into his ear he was able to give me appropriate responses. Objective Last Vital Signs Temp 35.7 C L 02/07/23 11:07 Pulse 65 02/07/23 11:07 Resp 19 02/07/23 11:07 BP 122/62 02/07/23 11:07 Pulse Ox 97 02/07/23 11:07 Laboratory Results - last 24 hr 02/07/23 02/07/23 02/07/23 06:10 06:10 06:10 Sodium 138 Potassium 4.1 Chloride 103 Carbon Dioxide 25.0 Anion Gap 10.0 BUN 18 Creatinine 1.0 Est GFR (CKD-EPI 2020) 73.30 Glucose 122 H Calcium 8.3 L C-Reactive Protein Cancelled 5.02 H NT-Pro-B Natriuret Pep Cancelled 1102 H Time Spent with Patient Time Spent with Patient: 25-34 minutes Time was spent: preparing to see the patient(eg.review tests), ordering medications,tests, procedures, referring, communicating with other health caregiver services home, indepentently interpreting results, counseling the patient and care coordination
--- NOTE | 2023-02-07 18:36 | CMPROGNOTE_ITS ---
Date of service: 02/07/23 Time of Service: 18:36 Care Management Progress Note Progress Note Text Progress Note Text: S/O: Dimitrios remains on covid precautions. He is receiving remdesivir for covid. He reports feeling better, but still feeling weak. He met with palliative care today, who attempted to talk to his , with no answer. Per report, if he continues to improve, and is not febrile or short of breath, he may be ready for discharge home tomorrow. CM will continue to follow. A: Dimitrios is an 87 year old male admitted to [facility] on 02/05/23 for covid 19, weakness. P: Anticipate Dimitrios will return home once medically cleared. His will drive him home via private vehicle when ready. He will follow up with his PCP and discharge plan of care. CM will continue to follow.
[2023-02-07] MEDS: Melatonin 3 MG TAB 15 MG PO (22:08)
[2023-02-07] MEDS: Memantine 5 MG TAB PO (22:08)
[2023-02-08] MEDS: DOXYCYCLINE 100 MG in Normal Saline 100 ML IVPB ×2 (02:07→14:00)
[2023-02-08] MEDS: REMDESIVIR 100 MG in Normal Saline 250 ML 250 MG IVPB (03:07)
[2023-02-08 03:58] VITALS: BP 119/58; PULSE 58; RESP 18; O2SAT 95
[2023-02-08 07:15] LABS: Abs Immature Grans 0.06 10^3/uL (0.0-0.06); Absolute Basophil Count 0.02 10^3/uL (0.0-0.2); Absolute Eosinophil Count 0.37 10^3/uL (0.0-0.7); Absolute Lymphocyte Count 1.04 10^3/uL (1.2-3.4); Absolute Monocyte Count 0.95 10^3/uL (0.1-0.8); Basophils % 0.5; Eosinophils % 9.4; HCT 40.3 % (40.0-50.0); HGB 13.8 g/dL (13.5-17.5); Immature Grans % 1.5; Lymphocytes % 26.5; MCH 31.3 pg (27.0-33.0); MCHC 34.2 % (32.0-36.0); MCV 91 fL (80-95); MPV 9.8 fL (8.0-11.0); Monocytes % 24.2; Neutrophils % 37.9; Platelet Count 125 10^3/uL (130-400); RBC 4.41 10^6/uL (4.36-5.78); RDW 13.9 % (11.8-14.1); RDW-SD 46.9 fL; WBC 3.92 10^3/uL (4.4-10.8)
[2023-02-08 07:22] LABS: Absolute Neutrophil Count 1.49 10^3/uL (1.2-6.7)
[2023-02-08 07:30] LABS: ALT 25 U/L (16-63); AST 48 U/L (15-37); Albumin 2.8 g/dL (3.4-5.0); Alkaline Phosphatase 55 U/L (46-116); Anion Gap 7.4 mmol/L (3-11); BUN 20 mg/dL (7-18); Bilirubin, Total 0.3 mg/dL (0.2-1.0); C-Reactive Protein 1.99 mg/dL (0.0-0.3); CO2 30.6 mmol/L (21.0-32.0); CREATININE 1.1 mg/dL (0.70-1.30); Chloride 106 mmol/L (98-107); Estimated GFR 65.38 (mL/min/1.73m2); Glucose 78 mg/dL (74-106); Potassium 3.6 mmol/L (3.5-5.1); Sodium 144 mmol/L (136-145); Total Protein 5.6 g/dL (6.4-8.2)
[2023-02-08 07:34] LABS: D-Dimer 523 ng/mlFEU (<500)
[2023-02-08 07:39] LABS: Procalcitonin < 0.1 ng/mL
[2023-02-08 07:48] VITALS: BP 162/68; PULSE 62; RESP 16; TEMP 35.5; O2SAT 95
[2023-02-08] MEDS: Enoxaparin 40 MG/0.4 ML SYR SC (07:53)
[2023-02-08] MEDS: Aspirin E.C. 81 MG TABEC PO (07:55)
[2023-02-08] MEDS: Tamsulosin 0.4 MG CAPCR PO (07:55)
[2023-02-08] MEDS: Divalproex Sodium 500 MG TAB.ER.24H PO ×2 (07:55→20:11)
[2023-02-08] MEDS: Atorvastatin 40 MG TAB PO (07:55)
[2023-02-08] MEDS: Clopidogrel 75 MG TAB PO (07:55)
[2023-02-08] MEDS: Citalopram 10 MG TAB 20 MG PO (07:55)
[2023-02-08] MEDS: Pantoprazole 40 MG TABCR PO (07:56)
[2023-02-08] MEDS: Lacosamide 100 MG TAB PO ×2 (07:56→20:11)
[2023-02-08] MEDS: Donepezil 5 MG TAB 10 MG PO (07:56)
[2023-02-08] MEDS: Ipratropium/Albuterol 4 GM 120 PUFF INH IH ×3 (08:40→21:40)
[2023-02-08] MEDS: Tiotropium Bromide-Respimat 10 PUFF INH 2 PUFF IH (08:41)
[2023-02-08 09:56] LABS: Lyme Ab w Rflx to Lyme Confirm Negative (Negative)
[2023-02-08 11:57] VITALS: BP 122/68; PULSE 56; RESP 18; TEMP 36.1; O2SAT 95
[2023-02-08] MEDS: cefTRIAXone 1 GM/50 ML BAG IVPB (12:05)
[2023-02-08 14:43] VITALS: BP 108/57; PULSE 62; RESP 18; TEMP 36.6; O2SAT 95
--- NOTE | 2023-02-08 17:02 | W.PM.PROGNOT ---
Date of Service Date of service: 02/08/23 Time of Service: 17:03 Assessment and Plan Assessment and plan (1) COVID-19: Status: Acute Assessment and plan: -Infection markers were elevated but procalcitonin and lactate were negative with normal to low WBC and no obvious secondary infection. -However he has been febrile and blood cultures have been sent. -tick panel pending -Continue ceftriaxone and doxycycline and remdesivir. (2) Febrile illness: Status: Acute Assessment and plan: -as noted above (3) COPD (chronic obstructive pulmonary disease): Status: Chronic Assessment and plan: -add Spiriva, changed DuoNeb to Combivent; not having an acute exacerbation Qualifiers: COPD type: chronic bronchitis Chronic bronchitis type: simple Qualified Code(s): J41.0 - Simple chronic bronchitis (4) Generalized weakness: Status: Acute Assessment and plan: -Associated with acute COVID infection without hypoxemia. Patient had infection in fall 2021 with similar symptoms of generalized weakness. (5) Dementia: Assessment and plan: -frontotemporal dementia; continue Aricept and Namenda Qualifiers: Dementia type: other frontotemporal dementia Dementia severity: moderate Dementia behavioral or psychological symptom: with other behavioral disturbance Qualified Code(s): G31.09 - Other frontotemporal neurocognitive disorder; F02.B18 - Dementia in other diseases classified elsewhere, moderate, with other behavioral disturbance (6) CAD (coronary artery disease): Assessment and plan: -Continue outpatient medical therapy and monitor. Not active. Qualifiers: Coronary Disease-Associated Artery/Lesion type: [place] artery [place] vs. transplanted heart: [place]ski heart Associated angina: without angina Qualified Code(s): I25.10 - Atherosclerotic heart disease of [place] coronary artery without angina pectoris (7) H/O non-insulin dependent diabetes mellitus: Assessment and plan: -monitor blood glucose AC/HS, covere w/ sliding scale Novolog (8) Seizure: Assessment and plan: -On lacosamide will be continued during hospital stay with patient observed closely, no active seizures. Subjective Subjective Interval history since last seen: Patient seen resting in the bed comfortably in no acute distress. Was planning on discharging home today however patient's stated they did not have power at their house. Exam Narrative Exam Narrative: Elderly lady gentleman laying in bed in no acute distress, awake, alert, oriented to person, heart regular rate rhythm, lungs clear to auscultation bilaterally Objective Last Vital Signs Temp 97.9 F 02/08/23 14:43 Pulse 62 02/08/23 14:43 Resp 18 02/08/23 14:43 BP 108/57 L 02/08/23 14:43 Pulse Ox 95 02/08/23 14:43 Laboratory Results - last 24 hr 02/06/23 02/08/23 11:35 06:40 WBC 3.92 L RBC 4.41 Hgb 13.8 Hct 40.3 MCV 91 MCH 31.3 MCHC 34.2 RDW 13.9 Plt Count 125 L MPV 9.8 Immature Gran % 1.5 Neutrophils % 37.9 Lymphocytes % 26.5 Monocytes % 24.2 Eosinophils % 9.4 Basophils % 0.5 Nucleated RBC % 0.0 Absolute Neutrophils 1.49 Absolute Lymphocytes 1.04 L Absolute Monocytes 0.95 H Absolute Eosinophils 0.37 Absolute Basophils 0.02 D-Dimer 523 H Sodium 144 Potassium 3.6 Chloride 106 Carbon Dioxide 30.6 Anion Gap 7.4 BUN 20 H Creatinine 1.1 Est GFR (CKD-EPI 2020) 65.38 Glucose 78 Calcium 8.0 L Total Bilirubin 0.3 AST 48 H ALT 25 Alkaline Phosphatase 55 C-Reactive Protein 1.99 H Total Protein 5.6 L Albumin 2.8 L Procalcitonin < 0.1 Lyme Disease Antibody Negative Time Spent with Patient Time Spent with Patient: >50 minutes Time was spent: preparing to see the patient(eg.review tests), obtaining and/or reviewing separately otained hiistory, referring, communicating with other health healthcare science specialist, indepentently interpreting results, counseling the patient and care coordination
--- NOTE | 2023-02-08 17:07 | PDOC.CMPRO ---
Date of service: 02/08/23 Time of Service: 17:07 Care Management Progress Note Progress Note Text Progress Note Text: CM attempted contact with Dimitrios's , left voicemail for Aletha-no response at time of documentation. Ed remains on COVID Precautions. CC reported receiving a call from daughter, Hilda (P#[phone]) who advised there was no power at home, and [place] [employer] reportedly went to the home for a well check and Aletha refused transfer. CM updated PCP, uncertain if home situation will impact discharge plan, as Dimitrios was anticipated to return home.
[2023-02-08] MEDS: Acetaminophen 325 MG TAB PO (20:11)
[2023-02-08] MEDS: Melatonin 3 MG TAB 15 MG PO (20:11)
[2023-02-08] MEDS: Memantine 5 MG TAB PO (20:11)
[2023-02-08 20:52] VITALS: BP 131/75; PULSE 62; RESP 18; TEMP 36.5; O2SAT 94
[2023-02-08 22:26] VITALS: BP 127/71; PULSE 76; RESP 18; TEMP 36.3; O2SAT 93
[2023-02-09 02:11] VITALS: PULSE 67
[2023-02-09 05:16] VITALS: BP 143/63; PULSE 60; RESP 20; TEMP 36.3; O2SAT 93
[2023-02-09] MEDS: Doxycycline Hyclate 100 MG CAP PO (05:19)
[2023-02-09 07:14] VITALS: BP 157/64; PULSE 54; RESP 15; TEMP 36.6; O2SAT 93
[2023-02-09] MEDS: Tiotropium Bromide-Respimat 10 PUFF INH 2 PUFF IH (07:44)
[2023-02-09] MEDS: Ipratropium/Albuterol 4 GM 120 PUFF INH IH ×2 (07:45→11:59)
[2023-02-09 07:47] VITALS: PULSE 69; RESP 16; O2SAT 98
[2023-02-09] MEDS: Pantoprazole 40 MG TABCR PO (08:43)
[2023-02-09] MEDS: Atorvastatin 40 MG TAB PO (08:43)
[2023-02-09] MEDS: Aspirin E.C. 81 MG TABEC PO (08:43)
[2023-02-09] MEDS: Enoxaparin 40 MG/0.4 ML SYR SC (08:43)
[2023-02-09] MEDS: Donepezil 5 MG TAB 10 MG PO (08:43)
[2023-02-09] MEDS: Tamsulosin 0.4 MG CAPCR PO (08:43)
[2023-02-09] MEDS: Clopidogrel 75 MG TAB PO (08:43)
[2023-02-09] MEDS: Divalproex Sodium 500 MG TAB.ER.24H PO (08:43)
[2023-02-09] MEDS: Lacosamide 100 MG TAB PO (08:43)
[2023-02-09] MEDS: Citalopram 10 MG TAB 20 MG PO (08:44)
--- NOTE | 2023-02-09 11:28 | PDOC.HHF2F ---
Home Health Referral Home Health Orders Clinical synopsis of why skilled professionals are needed: Dementia, COVID-19 infection, patient experienced decline in mental status and ambulatory ability during hospitalization Medical diagnosis necessitation home health referral: See above Registered Nurse: Check all that apply Instruct on new or changed medication(s)/assess compliance: Ordered Assess for exacerbation of medical condition, instruct patient/caregivers on signs and symptoms to report for early detection: Ordered Physical Therapist: Check all that apply Increase strength & endurance for safe mobility at home: Ordered To design/establish home maintenance program: Ordered Fall reduction therapy program for patient with history of frequent falls: Ordered Home safety evaluation and teaching/gait training including stair management (if applicable): Ordered Occupational Therapist: Evaluate and treat for patient unable to perform ADL/IADL/self-care: Ordered Upper extremity strengthening, range and motion: Ordered Combustion Engineer: Assist with community resources: Ordered Assist with tank terminal gauger care planning: Ordered Encounter Date and Reason: I certify that a FTF encounter for this patient was performed on February 09, 2023 and that such encounter was related to the primary reason the patient requires home health services. The encounter was conducted in the following manner: By me as the certifying physician, RETAIL GENERAL MANAGER, PA or By an inpatient physician, RETAIL GENERAL MANAGER or PA during an inpatient stay who communicated findings to me, Certification And Authentication I certify that I composed the above information based on my clinical judgment relating to this patient's medical condition and, if applicable, clinical findings communicated to me by the NPP or inpatient physician who performed the FTF encounter. Name of Provider that will be monitoring home health services: Jordon Padron
--- NOTE | 2023-02-09 11:30 | DSE_ITS ---
Date of service: 02/09/23 Time of Service: 11:30 DS: Diagnosis Discharge Diagnosis (1) COVID-19: Status: Acute Asessment and Plan: -Infection markers were elevated but procalcitonin and lactate were negative with normal to low WBC and no obvious secondary infection. -However he has been febrile and blood cultures have been sent and are negative -tick panel negative -completed course of ceftriaxone and doxycycline and remdesivir. (2) Febrile illness: Status: Acute Asessment and Plan: -see above (3) COPD (chronic obstructive pulmonary disease): Status: Chronic Asessment and Plan: -continue home regimen (4) Generalized weakness: Status: Acute (5) Dementia: (6) CAD (coronary artery disease): (7) H/O non-insulin dependent diabetes mellitus: (8) Seizure: Discharge Plan Disposition Patient Disposition: Home W/Home Health Services Condition: Good Discharge Details Reason For Visit: COVID-19 infection, Generalized weakness, dementia Admit Date/Time: 02/05/23 22:33 Admit Provider: Gibran Pabon Attending Provider: Gibran Pabon Primary Care Provider: Jordon Padron Hospital Course Hospital Course: Patient initially presented with generalized weakness and slight shortness of breath due to COVID-19 infection for which she was treated with remdesivir and had significant improvement in both his baseline behavior and mental status and breathing. Ultimately was determined that he was stable for discharge home with home health and PT services. Home Meds and New Rx's Prescriptions: Continued citalopram 10 mg tablet 20 mg PO DAILY therapeutic multivitamin Tablet 1 tab PO DAILY donepezil 10 mg tablet 10 mg PO HS melatonin 10 mg Tablet,Disintegrating 15 mg PO HS PRN Rx Instructions: take one and one half tablets = 15mg at bedtime tamsulosin 0.4 mg Capsule 0.4 mg PO DAILY memantine 5 mg tablet 5 mg PO QHS Patient Comments: TAKE 1 TABLET BY MOUTH NIGHTLY ketoconazole 2 % cream 1 applic TOPICAL BID PRN Patient Comments: APPLY CREAM TOPICALLY TO THE RASH ON THE SCALP AND AROUND HAIRLINE TWICE DAILY NEEDED Combivent Respimat 20-100 mcg/actuation Mist 1 puff INHALATION Q6H divalproex [Depakote ER] 500 mg Tablet Extended Release 24 Hr 500 mg PO BID clopidogrel [Plavix] 75 MG tablet 75 mg PO DAILY pantoprazole 40 MG tablet,delayed release (DR/EC) 40 mg PO DAILY nitroglycerin [Nitrostat] 0.4 MG tablet, sublingual 0.4 mg Sublingual Q5 MIN PRN X3 PRN albuterol sulfate [Proventil HFA] 6.7 GM HFA aerosol inhaler 2 puff Inhalation Q4H PRN PRN aspirin 81 mg Tablet,Delayed Release (Dr/Ec) 81 mg PO DAILY atorvastatin [Lipitor] 40 mg Tablet 40 mg PO DAILY lacosamide 100 mg tablet 100 mg PO BID Qty: 60 0RF Discharge Instructions Instructions: Weakness (DC), COVID-19 (Coronavirus Disease 2019) (DC) Activity:: Activity as Tolerated Equipment/Supplies:: No Equipment Needed Diet:: As Tolerated Discharge Orders Discharge Orders: Discharge Order (Routine); Ordered 02/09/23 Ordered By: Oli Escudero DS: Summary Time Spent with Patient providing and/or coordinating discharge services: Greater than 30 minutes Status at Discharge Functional status at discharge: uses cane/walker Overall status at discharge: patient is not back to baseline Mental Status: other (back to baseline, has dementia) Speech and Movement: delayed speech Mood: other (back to baseline, has dementia) Affect: other Exam Narrative Exam Narrative: Elderly lady gentleman laying in bed in no acute distress, awake, alert, oriented to person, heart regular rate rhythm, lungs clear to auscultation bilaterally Psych Mental Status: other (back to baseline, has dementia) Speech and Movement: delayed speech Mood: other (back to baseline, has dementia) Affect: other DS: Data Vitals/I&O Vitals and I&O: Vital Signs Temperature 97.9 F 02/09/23 07:14 Temperature Source Tympanic 02/09/23 07:14 Pulse 69 02/09/23 07:47 Pulse Rhythm Regular 02/09/23 08:30 Pulse 66 02/05/23 23:46 Respiratory Rate 16 02/09/23 07:47 Respiratory Effort Normal 02/09/23 08:30 Respiratory Depth Normal 02/09/23 08:30 Respiratory Pattern Normal 02/09/23 08:30 Blood Pressure 157/64 H 02/09/23 07:14 Blood Pressure Mean 84 02/05/23 23:46 Blood Pressure Position Supine 02/05/23 20:51 Pulse Oximetry 98 02/09/23 07:47 Oxygen Delivery Method Room Air 02/09/23 07:47 Oxygen Flow Rate 0 02/09/23 07:47 Pain Level 0 02/09/23 07:14 Comment RN informed of TEMP 02/06/23 08:10 Intake & Output 02/08/23 02/09/23 02/09/23 17:59 05:59 17:59 Intake Total 350 / 350 Output Total 550 / 550 800 / 1350 275 / 275 Balance -200 / -200 -800 / -1000 -275 / -275 Intake: IV 350 / 350 Output: Urine 550 / 550 800 / 1350 275 / 275 Other: Urine Color Yellow Light Sallie Yellow Urine Appearance Clear Clear Clear Urine Odor Normal Voiding Methods Urinal Urinal Data Completed and Pending Labs on day of discharge: Labs from last 24 hours 02/06/23 11:35 Lyme Disease Antibody Negative Preliminary micro results at discharge 02/05/23 21:50 Blood Culture - Preliminary Blood NO GROWTH 72 HOURS 02/05/23 20:45 Blood Culture - Preliminary Blood NO GROWTH 72 HOURS PFSH All Active Problems (Updated 02/06/23 @ 12:07 by Quincy Lucia MD) Febrile illness (Acute) Pneumonia (Acute) COPD (chronic obstructive pulmonary disease) (Chronic) Breakthrough seizure (Acute) COVID-19 (Acute) Generalized weakness (Acute) Rib fractures (Acute) Medical History Palliative care patient CAD (coronary artery disease) Seizure disorder H/O non-insulin dependent diabetes mellitus UTI (urinary tract infection) Kidney stones Myocardial infarction Hx of hyperlipidemia HTN (hypertension) Lung cancer Dementia Seizure Surgical History History of tonsillectomy History of coronary artery stent placement Family History Maternal Grandfather Leukemia Social History Smoking/Tobacco Use Status: Never Smoking risk assessment performed?: Yes Alcohol Intake: never Substance use type: does not use Housing: house Do you feel safe at home: Yes Do you feel safe in your relationship?: Yes Time Spent with Patient Time Spent with Patient: <45 minutes Time was spent: preparing to see the patient(eg.review tests), obtaining and/or reviewing separately [facility] hi[facility], referring, communicating with other health overnight caregiver, indepentently interpreting results, counseling the patient and care coordination
[2023-02-09 19:01] LABS: Anaplasma phagocytophilum Negative (Negative); B. miyamotoi PCR Negative (Negative); Babesia divergens/MO-1 Negative (Negative); Babesia duncani Negative (Negative); Babesia microti Negative (Negative); Ehrlichia chaffeensis Negative (Negative); Ehrlichia ewingii/canis Negative (Negative); Ehrlichia muris eauclairensis Negative (Negative)
--- NOTE | 2023-02-09 19:10 | PDOC.CMDIS ---
Date of service: 02/09/23 Time of Service: 19:10 LACE Index Scoring Tool Questions: Length of Stay (in days): 4 - 6 Was the patient admitted via the E.D.?: Yes Comorbidities: Chronic Pulmonary Disease E.D. Visits: 2 Answers: Total Score: 11 Risk of Readmission: High Risk Care Management Discharge Plan Reason for Hospitalization: Covid 19, weakness, dementia Discharge Plan: Dimitrios returned home today with new orders for HH RN, PT, OT, [employer]. His daughter drove him home via private vehicle. He will follow up with his PCP and discharge plan of care. Patient/Family Education Needs: Review discharge instructions and limitations, discussion of self care needs including ask me three. Services Needed at Discharge: Home Health Care Services (new HH RN, PT, OT, [employer])
== END 2023-02-09 15:50 | disposition home health service (06) | DRG 177 ==
LOC: ER 22:47 → MS 02-07 11:48
PROVIDERS: Internal Medicine; Admitting Provider Family Medicine; Emergency Provider Physician Assistant; PCP Family Medicine; Visit Provider Family Medicine
DX: U07.1 COVID-19 (principal); J18.9 Pneumonia, unspecified organism; F02.B18 Dementia in other diseases classified elsewhere, moderate, with other behavioral disturbance; J44.0 Chronic obstructive pulmonary disease with (acute) lower respiratory infection; R53.1 Weakness; G31.09 Other frontotemporal neurocognitive disorder; E11.9 Type 2 diabetes mellitus without complications; I25.10 Atherosclerotic heart disease of native coronary artery without angina pectoris; G40.909 Epilepsy, unspecified, not intractable, without status epilepticus; Z79.84 Long term (current) use of oral hypoglycemic drugs; I25.2 Old myocardial infarction; E78.5 Hyperlipidemia, unspecified; I10 Essential (primary) hypertension; Z95.5 Presence of coronary angioplasty implant and graft; R09.02 Hypoxemia; D72.810 Lymphocytopenia; R50.9 Fever, unspecified
CPT/HCPCS: 00123; 36415; 80048; 80053; 82805; 83690; 84145; 85027; 85652; 87040; 87637; 87798; 93005; 94618; 94640; 96361; 96374; 97161; 97166; 97535; 99285; J1650; 70450; 71045; 81003; 81015; 82140; 83605; 83735; 83880; 84443; 84484; 85025; 85379; 86140; 86618; 93010; 94664; 94760; 99223; 99232; 99233; 99239; J0131; J0248; J0696; J1100; J1940; J3490; J7620

== ENCOUNTER 2023-02-11 08:24 | Inpatient (IN) | payer MEDICARE, SELFPAY ==
[2023-02-11] VITALS (32 sets, daily range): BP systolic 88–171; BP diastolic 26–82; PULSE 61–115; RESP 17–36; TEMP 36.2–38.9; O2SAT 92–99
--- NOTE | 2023-02-11 08:15 | RT.EKG_ITS ---
APPROVED REPORT Exam: Resting ECG Reason for Exam: YAIR+, ALLA Patient Location: E HR:105 bpm ECG Measurements Heart Rate 105 AXIS KS 145 P 55 QRSd 104 QRS -32 QT 317 T 132 QTc 421 Conclusion Sinus tachycardia left axis non specific ST changes
[2023-02-11 08:41] LABS: BE 4 mmol/L (-2-3); HCO3 27 mmol/L (22-26); pCO2 35 mmHg (35-45); pO2 56 mmHg (80-105); sO2 89 % (95-98); tCO2 24 mmol/L (23-27)
--- NOTE | 2023-02-11 08:41 | W.ED.GENAD ---
Discharge Plan Disposition Patient Disposition: Admit to [facility] Condition: Stable Discharge Details Clinical Impression: Pneumonia due to 2019-nCoV, Pulmonary embolism on left Primary Care Provider: Jordon Padron ED Provider: Bonnie Gordon Home Meds and New Rx's Prescriptions: No Action citalopram 10 mg tablet 20 mg PO DAILY therapeutic multivitamin Tablet 1 tab PO DAILY donepezil 10 mg tablet 10 mg PO HS melatonin 10 mg Tablet,Disintegrating 15 mg PO HS PRN Rx Instructions: take one and one half tablets = 15mg at bedtime tamsulosin 0.4 mg Capsule 0.4 mg PO DAILY memantine 5 mg tablet 5 mg PO QHS Patient Comments: TAKE 1 TABLET BY MOUTH NIGHTLY ketoconazole 2 % cream 1 applic TOPICAL BID PRN Patient Comments: APPLY CREAM TOPICALLY TO THE RASH ON THE SCALP AND AROUND HAIRLINE TWICE DAILY NEEDED Combivent Respimat 20-100 mcg/actuation Mist 1 puff INHALATION Q6H divalproex [Depakote ER] 500 mg Tablet Extended Release 24 Hr 500 mg PO BID clopidogrel [Plavix] 75 MG tablet 75 mg PO DAILY pantoprazole 40 MG tablet,delayed release (DR/EC) 40 mg PO DAILY nitroglycerin [Nitrostat] 0.4 MG tablet, sublingual 0.4 mg Sublingual Q5 MIN PRN X3 PRN albuterol sulfate [Proventil HFA] 6.7 GM HFA aerosol inhaler 2 puff Inhalation Q4H PRN PRN aspirin 81 mg Tablet,Delayed Release (Dr/Ec) 81 mg PO DAILY atorvastatin [Lipitor] 40 mg Tablet 40 mg PO DAILY lacosamide 100 mg tablet 100 mg PO BID Qty: 60 0RF Medical Decision Making 87-year-old male presents to the ER via EMS with a chief complaint of fever, altered mental status different from his baseline and weakness. Patient does have a history of dementia, COVID-19, CAD, UTI, kidney stones MS hyperlipidemia hypertension insulin-dependent diabetes, lung cancer and seizure he is a palliative care patient however he is a full code. He did not take most of his medications this morning. He did have his night meds last night. No history of nausea vomiting diarrhea no history of head injuries or falls per patient family report no signs of trauma. Does have increased productive cough with green-yellow sputum per family report. He was recently discharged from the hospital 48 hours ago does have a referral pending for home health. No focal neuro deficits. Work-up ordered including CBC CMP serial troponins, ABG which shows a metabolic respiratory alkalosis with O2 sat of 89% however oximetry pleth is reading 93% in the room bicarb is 27 PO2 56 pH 7.50 base excess is [address] on 2 L nasal cannula at this time. Albuterol inhaler ordered and Tylenol p.o., NS at 500 ml/hr. EKG was reviewed by Dr. Ibarra ER attending, and Dr. Rhodes manager heart,please see official report, old EKG available for review. No significant change no STEMI noted. Differential Diagnosis, Pneumonia, UTI, Failed outpatient treatment, PE, seizure disorder however no report of seizure-like activity, no falls no head trauma.. Urinalysis shows no evidence of UTI, 15 ketones, moderate blood 30 protein and leukocytes no nitrates. Micro is pending at this time. 0930: Due to metabolic alkalosis and PaO2 of 56.3 and SPO2 of 89.2, with bicarb 27 associated with tachypnea, high flow O2 ordered. RT at bedside they will try some incentive spirometry and nebulized O2. 1132: Spoke with Dr. Goldstein radiologist who reports that patient does have positive PE in the left lingula, also right middle upper lobe infiltrate concerning for pneumonia. Will plan for admission. This text was generated using [employer] system, please disregard any oddities of phrase or misspellings. Medical Records Medical records reviewed: Yes I reviewed the patient's medical records. Medical records narrative: Patient was discharged on 07 February with home health at that time labs had improved, blood cultures are pending at that time. Lab Data Lab results reviewed: Yes I reviewed the patient's lab results. Labs: 02/11/23 08:41 Blood Blood Culture - Pending 02/11/23 08:55 Blood Blood Culture - Pending Laboratory Tests Range/Units 02/11/23 02/11/23 02/11/23 08:35 08:41 08:41 WBC (4.4-10.8) 10^3/uL 5.14 RBC (4.36-5.78) 10^6/uL 4.85 Hgb (13.5-17.5) g/dL 14.9 Hct (40.0-50.0) % 43.9 MCV (80-95) fL 91 MCH (27.0-33.0) pg 30.7 MCHC (32.0-36.0) % 33.9 RDW (11.8-14.1) % 14.0 Plt Count (130-400) 10^3/uL 147 MPV (8.0-11.0) fL 9.6 Immature Gran % 1.6 Neutrophils % 65.7 Lymphocytes % 6.0 Monocytes % 25.1 Eosinophils % 1.4 Basophils % 0.2 Nucleated RBC % (0.0-0.3) % 0.0 Absolute Neutrophils (1.2-6.7) 10^3/uL 3.38 Absolute Lymphocytes (1.2-3.4) 10^3/uL 0.31 L Absolute Monocytes (0.1-0.8) 10^3/uL 1.29 H Absolute Eosinophils (0.0-0.7) 10^3/uL 0.07 Absolute Basophils (0.0-0.2) 10^3/uL 0.01 PT (9.1-11.1) sec 11.0 INR (0.9-1.1) 1.1 APTT (23.6-32.8) sec 25.2 D-Dimer (<500) ng/mlFEU 1581 H ABG Sample Site Right Radial ABG pH (7.35-7.45) 7.50 H ABG pCO2 (35-45) mmHg 35 ABG pO2 (80-105) mmHg 56 L ABG HCO3 (22-26) mmol/L 27 H ABG Total CO2 (23-27) mmol/L 24 ABG O2 Saturation (95-98) % 89 L ABG Base Excess (-2-3) mmol/L 4 H Oxygen Liter Flow L ROOM AIR Sodium (136-145) mmol/L 141 Potassium (3.5-5.1) mmol/L 3.6 Chloride (98-107) mmol/L 102 Carbon Dioxide (21.0-32.0) mmol/L 28.8 Anion Gap (3-11) mmol/L 10.2 BUN (7-18) mg/dL 16 Creatinine (0.70-1.30) mg/dL 1.1 Est GFR (CKD-EPI 2020) (mL/min/1.73m2) 65.38 Glucose (74-106) mg/dL 115 H Calcium (8.5-10.1) mg/dL 9.1 Magnesium (1.8-2.4) mg/dL 1.7 L Ferritin (26-388) ng/mL 99 Cancelled Total Bilirubin (0.2-1.0) mg/dL 0.6 AST (15-37) U/L 67 H ALT (16-63) U/L 58 Alkaline Phosphatase (46-116) U/L 80 Lactate Dehydrogenase (85-227) U/L 251 H Troponin I (<or=60) ng/L C-Reactive Protein (0.0-0.3) mg/dL NT-Pro-B Natriuret Pep (<300) pg/mL Total Protein (6.4-8.2) g/dL Albumin (3.4-5.0) g/dL Procalcitonin ng/mL Urine Color (Yellow) Urine Clarity (Clear) Urine pH (5-8) Ur Specific Ary (1.005-1.025) Urine Protein (Negative) mg/dL Urine Ketones (Negative) mg/dL Urine Blood (Negative) Urine Nitrite (Negative) Urine Bilirubin (Negative) Urine Urobilinogen (Up to 0.2) mg/dL Ur Leukocyte Esterase (Negative) Urine RBC (0-2) HPF Urine WBC (0-5) HPF Ur Epithelial Cells (Negative) HPF Urine Crystals (Negative) HPF Urine Bacteria (Negative) HPF Urine Casts (Negative) LPF Urine Mucus (Negative) Ur Culture Indicated? Urine Glucose (Negative) mg/dL Range/Units 02/11/23 02/11/23 02/11/23 08:41 08:41 09:13 WBC (4.4-10.8) 10^3/uL RBC (4.36-5.78) 10^6/uL Hgb (13.5-17.5) g/dL Hct (40.0-50.0) % MCV (80-95) fL MCH (27.0-33.0) pg MCHC (32.0-36.0) % RDW (11.8-14.1) % Plt Count (130-400) 10^3/uL MPV (8.0-11.0) fL Immature Gran % Neutrophils % Lymphocytes % Monocytes % Eosinophils % Basophils % Nucleated RBC % (0.0-0.3) % Absolute Neutrophils (1.2-6.7) 10^3/uL Absolute Lymphocytes (1.2-3.4) 10^3/uL Absolute Monocytes (0.1-0.8) 10^3/uL Absolute Eosinophils (0.0-0.7) 10^3/uL Absolute Basophils (0.0-0.2) 10^3/uL PT (9.1-11.1) sec INR (0.9-1.1) APTT (23.6-32.8) sec D-Dimer (<500) ng/mlFEU ABG Sample Site ABG pH (7.35-7.45) ABG pCO2 (35-45) mmHg ABG pO2 (80-105) mmHg ABG HCO3 (22-26) mmol/L ABG Total CO2 (23-27) mmol/L ABG O2 Saturation (95-98) % ABG Base Excess (-2-3) mmol/L Oxygen Liter Flow L Sodium (136-145) mmol/L Potassium (3.5-5.1) mmol/L Chloride (98-107) mmol/L Carbon Dioxide (21.0-32.0) mmol/L Anion Gap (3-11) mmol/L BUN (7-18) mg/dL Creatinine (0.70-1.30) mg/dL Est GFR (CKD-EPI 2020) (mL/min/1.73m2) Glucose (74-106) mg/dL Calcium (8.5-10.1) mg/dL Magnesium (1.8-2.4) mg/dL Ferritin (26-388) ng/mL Total Bilirubin (0.2-1.0) mg/dL AST (15-37) U/L ALT (16-63) U/L Alkaline Phosphatase (46-116) U/L Lactate Dehydrogenase (85-227) U/L Cancelled Troponin I (<or=60) ng/L < 50 C-Reactive Protein (0.0-0.3) mg/dL 2.36 H Cancelled NT-Pro-B Natriuret Pep (<300) pg/mL 515 H Total Protein (6.4-8.2) g/dL 6.6 Albumin (3.4-5.0) g/dL 3.4 Procalcitonin ng/mL 0.8 Urine Color (Yellow) Yellow Urine Clarity (Clear) Clear Urine pH (5-8) 8.5 H Ur Specific Ary (1.005-1.025) 1.020 Urine Protein (Negative) mg/dL 30 H Urine Ketones (Negative) mg/dL 15 H Urine Blood (Negative) Moderate H Urine Nitrite (Negative) Negative Urine Bilirubin (Negative) Negative Urine Urobilinogen (Up to 0.2) mg/dL 0.2 Ur Leukocyte Esterase (Negative) Negative Urine RBC (0-2) HPF 10-20 H Urine WBC (0-5) HPF 0-2 Ur Epithelial Cells (Negative) HPF Rare Urine Crystals (Negative) HPF Negative Urine Bacteria (Negative) HPF Rare Urine Casts (Negative) LPF Negative Urine Mucus (Negative) Trace Ur Culture Indicated? No Urine Glucose (Negative) mg/dL Negative ECG Data Prior ECG tracings: available for review Core Measures AMI Core Measures Followed: Yes HPI General Mode of arrival: EMS. Date/Time Provider Initiated Documentation: 02/11/23 08:32. Limitations to Documentation: altered mental status. Information obtained by: patient, family, EMS, RN notes reviewed and old records reviewed. HPI Narrative: 87-year-old male presents to the ER via EMS with a chief complaint of fever, altered mental status different from his baseline and weakness. Patient does have a history of dementia, COVID-19, CAD, UTI, kidney stones MS hyperlipidemia hypertension insulin-dependent diabetes, lung cancer and seizure he is a palliative care patient however he is a full code. He did not take most of his medications this morning. He did have his night meds last night. No history of nausea vomiting diarrhea no history of head injuries or falls per patient family report no signs of trauma. Does have increased productive cough with green-yellow sputum per family report. He was recently discharged from the hospital 48 hours ago does have a referral pending for home health. No focal neuro deficits. Related Data Home Medications Medication Instructions Recorded Confirmed albuterol sulfate 90 mcg/actuation 2 puff inhalation Q4H PRN PRN 04/27/16 02/06/23 aerosol inhaler (Proventil HFA) clopidogrel 75 mg tablet (Plavix) 75 mg PO DAILY 04/27/16 02/06/23 nitroglycerin 0.4 mg sublingual 0.4 mg sublingual Q5 MIN PRN X3 PRN 04/27/16 02/06/23 tablet (Nitrostat) pantoprazole 40 mg tablet,delayed 40 mg PO DAILY 04/27/16 02/06/23 release aspirin 81 mg tablet,delayed 81 mg PO DAILY 12/18/19 02/06/23 release atorvastatin 40 mg tablet (Lipitor) 40 mg PO DAILY 12/18/19 02/05/23 citalopram 10 mg tablet 20 mg PO DAILY 02/20/21 02/06/23 therapeutic multivitamin 1 tab PO DAILY 02/20/21 02/06/23 donepezil 10 mg tablet 10 mg PO HS 11/26/21 02/06/23 melatonin 10 mg disintegrating 15 mg PO HS PRN 11/26/21 02/06/23 tablet tamsulosin 0.4 mg capsule 0.4 mg PO DAILY 11/26/21 02/06/23 memantine 5 mg tablet 5 mg PO QHS 06/02/22 02/06/23 lacosamide 100 mg tablet 100 mg PO BID #60 tabs 06/04/22 02/06/23 ipratropium 20 mcg-albuterol 100 1 puff inhalation Q6H 08/29/22 02/06/23 mcg/actuation mist for inhalation (Combivent Respimat) ketoconazole 2 % topical cream 1 applic topical BID PRN 08/29/22 02/06/23 divalproex 500 mg tablet,extended 500 mg PO BID 09/01/22 02/06/23 release 24 hr (Depakote ER) Previous Rx's Medication Instructions Recorded lacosamide 100 mg tablet 100 mg PO BID #60 tabs 06/04/22 Allergies Allergy/AdvReac Type Severity Reaction Status Date / Time oxycodone [From Percocet] AdvReac Unverified 02/05/23 20:45 Penicillins AdvReac Unverified 02/05/23 20:45 General Stated Complaint: AMS/LOC FORD: 3 Review of Systems Narrative: Most history relayed by EMS and family All systems reviewed & are unremarkable except as noted in HPI and below and Unobtainable due to mental status Respiratory Respiratory: Reports change in phlegm color, Reports excessive phlegm production and Reports wheezing Gastrointestinal Gastrointestinal: Denies diarrhea, Denies nausea and Denies vomiting Neurologic Neurologic: Reports behavioral changes, Reports confusion and Reports tremor(s) Psychiatric Psychiatric: Reports behavioral changes and Reports confusion Allergic/Immunologic Allergic/Immunologic: Reports wheezing PFSH All Active Problems Pneumonia (Acute) COPD (chronic obstructive pulmonary disease) (Chronic) Breakthrough seizure (Acute) Rib fractures (Acute) Medical History Palliative care patient CAD (coronary artery disease) Seizure disorder H/O non-insulin dependent diabetes mellitus UTI (urinary tract infection) Kidney stones Myocardial infarction Hx of hyperlipidemia HTN (hypertension) Lung cancer Dementia Seizure Surgical History History of tonsillectomy History of coronary artery stent placement Family History Maternal Grandfather Leukemia Social History Smoking/Tobacco Use Status: Never Smoking risk assessment performed?: Yes Alcohol Intake: never Substance use type: does not use Housing: house Do you feel safe at home: Yes Do you feel safe in your relationship?: Yes Exam Narrative Exam Narrative: Constitutional: Awake, responsive with yes only, does follow commands, appears stated age. Normal body habitus. Hot to the touch, is shivering upon arrival. Head: Normocephalic, no trauma. Eyes: Pupils PERRL, Red reflex noted, EOM's intact. Eyelids symmetrical without lesions, discharge, or swelling. ENT: Bilateral TM's WNL, External ear normal to inspection, no mastoid TTP, swelling, or erythema, Nasal turbinates WNL, no nasal discharge. Normal dentition, Posterior pharynx WNL, no exudate. Dry mucous membranes noted. Chest: Tachycardic, normal sinus rhythm normal S1, S2, distal pulses intact. No significant edema lower extremities. Resp: Lungs bilateral scattered wheezes, congested cough noted. Abdomen: Soft, non-distended, Normoactive bowel sounds all 4 quads. Musculoskeletal: Unable to assess gait, Skin: No suspicious rashes or lesions. Capillary refill less than 2 sec. Neurologic: No facial droop, pupils are PERRLA, approximately 4 mm bilaterally, tongue midline. Awake and follows exam and commands,. Motor: Generalized weakness, negative pronator drift, no leg drop, Hematologic/Lymphatic: No ecchymosis, no lymphadenopathy. Course Vital Signs Vital signs: Vital Signs Temperature 38.9 C H 02/11/23 08:23 Pulse 100 H 02/11/23 08:23 Respiratory Rate 20 02/11/23 08:23 Blood Pressure 164/71 H 02/11/23 08:23 Pulse Oximetry 93 02/11/23 08:23 Temperature 38.9 C H 02/11/23 08:35 Temperature Source Oral 02/11/23 08:35 Pulse 100 H 02/11/23 08:35 Respiratory Rate 34 H 02/11/23 08:35 Respiratory Effort Short of Breath 02/11/23 08:32 Blood Pressure 164/71 H 02/11/23 08:35 Pulse Oximetry 93 02/11/23 08:35 Oxygen Delivery Method Room Air 02/11/23 08:35 Oxygen Flow Rate 0 02/11/23 08:35 Critical Care Time Critical Care Time Critical Care Time: Yes Total Critical Care Time: 45 Attestation: I spent greater than 35 minutes addressing this patient's acute life threatening illness. This time was spent engaged in actions directly related to the patient's care. Failure to initiate these interventions would have likely resulted in clinically significant or life threatening deterioration in the patients condition.
[2023-02-11 08:42] LABS: FIO2L ROOM AIR L; Site Right Radial
[2023-02-11] MEDS: Albuterol HFA 8 GM 60 PUFF INH IH (08:44)
[2023-02-11] MEDS: Acetaminophen 500 MG TAB 1000 MG PO (08:44)
[2023-02-11 09:03] LABS: Abs Immature Grans 0.08 10^3/uL (0.0-0.06); Absolute Basophil Count 0.01 10^3/uL (0.0-0.2); Absolute Eosinophil Count 0.07 10^3/uL (0.0-0.7); Absolute Lymphocyte Count 0.31 10^3/uL (1.2-3.4); Absolute Monocyte Count 1.29 10^3/uL (0.1-0.8); Absolute Neutrophil Count 3.38 10^3/uL (1.2-6.7); Basophils % 0.2; Eosinophils % 1.4; HCT 43.9 % (40.0-50.0); HGB 14.9 g/dL (13.5-17.5); Immature Grans % 1.6; MCH 30.7 pg (27.0-33.0); MCHC 33.9 % (32.0-36.0); MCV 91 fL (80-95); MPV 9.6 fL (8.0-11.0); Monocytes % 25.1; Neutrophils % 65.7; Platelet Count 147 10^3/uL (130-400); RBC 4.85 10^6/uL (4.36-5.78); RDW-SD 46.8 fL; WBC 5.14 10^3/uL (4.4-10.8)
[2023-02-11] MEDS: CEFEPIME 1 GM in Normal Saline 50 ML IVPB (09:04)
[2023-02-11] MEDS: Normal Saline 500 ML IV (09:05)
[2023-02-11 09:17] LABS: INR 1.1 (0.9-1.1); PTT Activated 25.2 sec (23.6-32.8)
[2023-02-11 09:26] LABS: Bilirubin Negative (Negative); Blood Moderate (Negative); Clarity Clear (Clear); Glucose Negative (Negative); Ketones 15 mg/dL (Negative); Leukocyte Esterase Negative (Negative); Nitrite Negative (Negative); Urobilinogen 0.2 mg/dL (Up to 0.2); pH 8.5 (5-8)
[2023-02-11 09:30] LABS: ALT 58 U/L (16-63); AST 67 U/L (15-37); Albumin 3.4 g/dL (3.4-5.0); Alkaline Phosphatase 80 U/L (46-116); Anion Gap 10.2 mmol/L (3-11); BUN 16 mg/dL (7-18); Bilirubin, Total 0.6 mg/dL (0.2-1.0); C-Reactive Protein 2.36 mg/dL (0.0-0.3); CO2 28.8 mmol/L (21.0-32.0); CREATININE 1.1 mg/dL (0.70-1.30); Calcium 9.1 mg/dL (8.5-10.1); Chloride 102 mmol/L (98-107); Estimated GFR 65.38 (mL/min/1.73m2); Ferritin 99 ng/mL (26-388); Glucose 115 mg/dL (74-106); Magnesium 1.7 mg/dL (1.8-2.4); NT-proBNP 515 pg/mL (<300); Potassium 3.6 mmol/L (3.5-5.1); Sodium 141 mmol/L (136-145); Total Protein 6.6 g/dL (6.4-8.2); Troponin I < 50 ng/L (<or=60)
[2023-02-11 09:31] LABS: D-Dimer 1581 ng/mlFEU (<500)
--- NOTE | 2023-02-11 09:32 | DI.RAD_ITS ---
Exam(s) XR PORTABLE CHEST AP EXAM: XR PORTABLE CHEST AP CLINICAL HISTORY: SOB, Covid + TECHNIQUE: 2D digital imaging was performed of the chest. One image was obtained. An AP view was ob tained. COMPARISON: CR,XR XR PORTABLE CHEST AP from 02/06/2023 FINDINGS: MEDIASTINUM: Normal. HEART: Within normal limits. PULMONARY VASCULATURE: Mild prominence of the pulmonary vasculature suggesting pulmonary venous conge stion. LUNGS: Unchanged prominence of the interstitium suspicious for edema. Pneumonitis cannot be excluded . No focal consolidating infiltrates are seen. PLEURAL SPACE: No pleural effusion or pneumothorax. BONE:Within normal limits for the patient's age. OTHER FINDINGS:Normal. IMPRESSION: 1. Overall there does not appear to be any significant change in appearance of the chest x-ray since 02/06/2023. 2. Persistent mild pulmonary venous congestion and interstitial prominence which may represent edema. Interstitial pneumonitis cannot be excluded. Please correlate clinically. DATA REPOSITORY: RADIATION DOSE DELIVERED:
--- NOTE | 2023-02-11 09:33 | DI.CT_ITS ---
Exam(s) CT CHEST PE CTA EXAM: CT CHEST PE CTA CLINICAL HISTORY: Covid positive, SOB, Tachy, Elevated Dimer. TECHNIQUE: Imaging Protocol: Axial CT angiography was performed with multi-slice acquisition and mu lti-planar and/or 3D reconstructions. CONTRAST MATERIAL: Intravenous: Omnipaque 350 contrast volume:100 mL COMPARISON: CT CT CHEST/ABD/PEL W from 08/29/2022 FINDINGS: The examination is limited due to patient motion artifact. Tracheobronchial tree: Patent where visualized. Pulmonary parenchyma: Non-specific predominantly ground-glass infiltrates are seen in the right upper , middle and lower lobes. The left lung appears clear. No architectural distortion. Pulmonary Arteries: Peripheral pulmonary artery evaluation is limited due to patient motion artifact. There is a filling defect seen in a pulmonary artery branch to the left lingula (series 7, image 26 9). The finding is suspicious for pulmonary embolism. Mediastinum and Megha: No dominant adenopathy or fluid collection. The esophagus is unremarkable. Th ere is a hiatal hernia. Visualized thyroid gland: Unremarkable. Pleura: No effusion or pneumothorax. Heart: Cardiomegaly. There is an unchanged enlarged right ventricle. This is stable compared to [place] or examinations. Coronary artery calcifications are present. No pericardial effusion. Aorta: Thoracic aorta non-dilated. No evidence of dissection. Atherosclerosis. Upper abdomen: Unremarkable. Soft tissues: Unremarkable. Bones: Within normal limits for the patient's age.Old right rib fractures are seen. IMPRESSION: 1. Filling defect seen in a branch of the pulmonary arteries to the left lingula consistent with a pu lmonary embolism. 2. Nonspecific ground-glass infiltrates in the right lung. These would be consistent with the patien t's history of COVID pneumonia. 3. Right heart enlargement which has been seen on prior examinations including an echo performed 08/31. 4. Findings were discussed with the Bonnie Gordon at 11:30 a.m. on 02/11/2023. RADIATION DOSE DELIVERED: Total DLP DATA REPOSITORY: All CT scans at this facility are submitted to the National Radiology Data Registry (NRDR) Dose Index Registry (DIR) with the [employer] (A[employer]). RADIATION OPTIMIZATION: All CT scans at this facility use at least one of these dose optimization te chniques: automated exposure control; mA and/or kV adjustment per patient size (includes targeted exa ms where dose is matched to clinical indication); or iterative reconstruction.
[2023-02-11 09:34] LABS: Procalcitonin 0.8 ng/mL
[2023-02-11 09:39] LABS: Bacteria Rare HPF (Negative); C & S Indicated? No; Casts Negative LPF (Negative); Crystals Negative HPF (Negative); Epithelial Cells Rare HPF (Negative); Mucus Trace (Negative); WBC 0-2 HPF (0-5)
[2023-02-11 09:44] LABS: LDH 251 U/L (85-227)
[2023-02-11] MEDS: Normal Saline - Diluent 50 ML VIAL IJ (10:37)
[2023-02-11] MEDS: Omnipaque 350 MG/ML 500 ML BTL-Imaging package IJ (10:38)
--- NOTE | 2023-02-11 11:44 | HPE_ITS ---
Date of service: 02/11/23 Time of Service: 11:44 Assessment and Plan Assessment and plan (1) Severe sepsis: Status: Acute Assessment and plan: - Patient is criteria significant for severe sepsis with a temperature of 102 ?F, heart rate greater than 100, respiratory rate greater than 20, extreme source of infection being ongoing COVID-19 and possible hospital-acquired pneumonia -During previous hospitalization patient completed course of remdesivir, so this would not be continued at this time -Given concerns for hospital-acquired pneumonia, he has been started on vancomycin and cefepime which will be continued -Lactic acid was normal -We will follow-up a.m. CBC (2) Pneumonia due to COVID-19 virus: Status: Acute Assessment and plan: - As noted above (3) Hospital acquired PNA: Status: Acute Assessment and plan: - As noted above (4) Pulmonary embolism associated with COVID-19: Status: Acute Assessment and plan: - In the emergency department patient was noted as being tachypneic, tachycardic and hypoxic requiring 2 L nasal cannula which prompted D-dimer which was elevated to about 1500 -Subsequent CTA PE protocol showed filling defect in the left lingula concerning for PE -This is likely secondary to patient's recent COVID-19 infection -He has been started on a heparin drip which will be continued for 48 hours and subsequently transitioned to p.o. Eliquis (5) Acute respiratory failure with hypoxia: Status: Acute Assessment and plan: - Secondary to combination of ongoing COVID-19, possible hospital-acquired pneumonia and PE as noted above -Currently on 2 L nasal cannula, will wean as tolerated (6) Dementia: Assessment and plan: - Continue home medication regimen Qualifiers: Dementia type: other frontotemporal dementia Dementia severity: m oderate Dementia behavioral or psychological symptom: with other behavioral disturbance Qualified Code(s): G31.09 - Other frontotemporal neurocognitive disorder; F02.B18 - Dementia in other diseases classified elsewhere, moderate, with other behavioral disturbance (7) Seizure: Assessment and plan: - Continue home medication regimen (8) HTN (hypertension): Assessment and plan: - Continue home medication regimen (9) CAD (coronary artery disease): Assessment and plan: - Continue home medication regimen Qualifiers: Coronary Disease-Associated Artery/Lesion type: [place] artery [place] vs. transplanted heart: [place] heart Associated angina: without angina Qualified Code(s): I25.10 - Atherosclerotic heart disease of [place] coronary artery without angina pectoris History of Present Illness History of Present Illness Chief Complaint: Fever, altered mental status N arrative: 87-year-old male with past medical history of dementia, CAD, MA, hyperlipidemia, hypertension, lung cancer and seizure previously on palliative care who is still full code, and was recently hospitalized at [facility] from 02/05/2023 to 02/08/2023 for COVID-pneumonia presents back to the emergency department with fever and altered mental status. Patient's states that patient has been doing well until this morning where he did not take most of his medications and noted that he was febrile and confused. He was also noted that he had increasing productive cough with green- yellow sputum. He denied any headache, lightheadedness, dizziness, chest pain, nausea vomiting or diarrhea. In the emergency department patient was noted to have a fever of 102 ?F, was tachycardic with a heart rate of 100, blood pressure was 164/71, respiratory rate was 34, and he required 2 L nasal cannula to maintain oxygen saturation greater than 92%. CBC showed a white blood cell count of 5.1, CMP was unremarkable, CRP was 2.36, proBNP was 515, troponin was negative, procalcitonin was 0.8, UA was negative, but D-dimer was elevated to 1581. This prompted a chest CTA PE that showed filling defect in the left lingula's suggestive of pulmonary embolus, as well as persistent groundglass opacities consistent with COVID-19 pneumonia. At which time emergency room PA initiated vancomycin and cefepime for additional concern for hospital-acquired pneumonia given recent hospitalization, and patient hospitalist team for admission for patient with severe sepsis secondary to presumed hospital-acquired pneumonia, as well as pulmonary embolus. Review of Systems All systems reviewed & are unremarkable except as noted in HPI and below PFSH All Active Problems (Updated 02/11/23 @ 11:50 by Oli Escudero MD) Acute respiratory failure with hypoxia (Acute) Pulmonary embolism associated with COVID-19 (Acute) Hospital acquired PNA (Acute) Pneumonia due to COVID-19 virus (Acute) Severe sepsis (Acute) Pneumonia (Acute) COPD (chronic obstructive pulmonary disease) (Chronic) Breakthrough seizure (Acute) Rib fractures (Acute) Medical History Palliative care patient CAD (coronary artery disease) Seizure disorder H/O non-insulin dependent diabetes mellitus UTI (urinary tract infection) Kidney stones Myocardial infarction Hx of hyperlipidemia HTN (hypertension) Lung cancer Dementia Seizure Surgical History History of tonsillectomy History of coronary artery stent placement Family History Maternal Grandfather Leukemia Social History Smoking/Tobacco Use Status: Never Smoking risk assessment performed?: Yes Alcohol Intake: never Substance use type: does not use Housing: house Do you feel safe at home: Yes Do you feel safe in your relationship?: Yes Meds Allergies and Home Medications Allergies Allergy/AdvReac Type Severity Reaction Status Date / Time oxycodone [From Percocet] AdvReac Unverified 02/11/23 12:40 Penicillins AdvReac Unverified 02/11/23 12:40 Home Medications Medication Instructions Recorded Confirmed Type albuterol sulfate 90 mcg/actuation 2 puff inhalation Q4H PRN PRN 04/27/16 02/11/23 History aerosol inhaler (Proventil HFA) clopidogrel 75 mg tablet (Plavix) 75 mg PO DAILY 04/27/16 02/11/23 History nitroglycerin 0.4 mg sublingual 0.4 mg sublingual Q5 MIN PRN X3 PRN 04/27/16 02/11/23 History tablet (Nitrostat) pantoprazole 40 mg tablet,delayed 40 mg PO DAILY 04/27/16 02/11/23 History release aspirin 81 mg tablet,delayed 81 mg PO DAILY 12/18/19 02/11/23 History release atorvastatin 40 mg tablet (Lipitor) 40 mg PO DAILY 12/18/19 02/11/23 History citalopram 10 mg tablet 20 mg PO DAILY 02/20/21 02/11/23 History therapeutic multivitamin 1 tab PO DAILY 02/20/21 02/11/23 History donepezil 10 mg tablet 10 mg PO HS 11/26/21 02/11/23 History melatonin 10 mg disintegrating 15 mg PO HS PRN 11/26/21 02/11/23 History tablet tamsulosin 0.4 mg capsule 0.4 mg PO DAILY 11/26/21 02/11/23 History memantine 5 mg tablet 5 mg PO QHS 06/02/22 02/11/23 History lacosamide 100 mg tablet 100 mg PO BID #60 tabs 06/04/22 02/11/23 Rx ipratropium 20 mcg-albuterol 100 1 puff inhalation Q6H 08/29/22 02/11/23 History mcg/actuation mist for inhalation (Combivent Respimat) ketoconazole 2 % topical cream 1 applic topical BID PRN 08/29/22 02/11/23 History divalproex 500 mg tablet,extended 500 mg PO BID 09/01/22 02/11/23 History release 24 hr (Depakote ER) Exam Narrative Exam Narrative: Well-appearing older gentleman sitting up in bed in no acute distress, oriented to person only, heart regular rate rhythm, lungs clear to auscultation bilaterally, abdomen soft, nontender numbness Results Labs 02/11/23 08:41 02/11/23 08:41 Labs: Laboratory Results - last 24 hr 02/11/23 02/11/23 02/11/23 08:35 08:41 08:41 WBC 5.14 RBC 4.85 Hgb 14.9 Hct 43.9 MCV 91 MCH 30.7 MCHC 33.9 RDW 14.0 Plt Count 147 MPV 9.6 Immature Gran % 1.6 Neutrophils % 65.7 Lymphocytes % 6.0 Monocytes % 25.1 Eosinophils % 1.4 Basophils % 0.2 Nucleated RBC % 0.0 Absolute Neutrophils 3.38 Absolute Lymphocytes 0.31 L Absolute Monocytes 1.29 H Absolute Eosinophils 0.07 Absolute Basophils 0.01 PT 11.0 INR 1.1 APTT 25.2 D-Dimer 1581 H ABG Sample Site Right Radial ABG pH 7.50 H ABG pCO2 35 ABG pO2 56 L ABG HCO3 27 H ABG Total CO2 24 ABG O2 Saturation 89 L ABG Base Excess 4 H Oxygen Liter Flow ROOM AIR Sodium 141 Potassium 3.6 Chloride 102 Carbon Dioxide 28.8 Anion Gap 10.2 BUN 16 Creatinine 1.1 Est GFR (CKD-EPI 2020) 65.38 Glucose 115 H Calcium 9.1 Magnesium 1.7 L Ferritin 99 Cancelled Total Bilirubin 0.6 AST 67 H ALT 58 Alkaline Phosphatase 80 Lactate Dehydrogenase 251 H Troponin I C-Reactive Protein NT-Pro-B Natriuret Pep Total Protein Albumin Procalcitonin Urine Color Urine Clarity Urine pH Ur Specific [place] Urine Protein Urine Ketones Urine Blood Urine Nitrite Urine Bilirubin Urine Urobilinogen Ur Leukocyte Esterase Urine RBC Urine WBC Ur Epithelial Cells Urine Crystals Urine Bacteria Urine Casts Urine Mucus Ur Culture Indicated? Urine Glucose 02/11/23 02/11/23 02/11/23 08:41 08:41 09:13 WBC RBC Hgb Hct MCV MCH MCHC RDW Plt Count MPV Immature Gran % Neutrophils % Lymphocytes % Monocytes % Eosinophils % Basophils % Nucleated RBC % Absolute Neutrophils Absolute Lymphocytes Absolute Monocytes Absolute Eosinophils Absolute Basophils PT INR APTT D-Dimer ABG Sample Site ABG pH ABG pCO2 ABG pO2 ABG HCO3 ABG Total CO2 ABG O2 Saturation ABG Base Excess Oxygen Liter Flow Sodium Potassium Chloride Carbon Dioxide Anion Gap BUN Creatinine Est GFR (CKD-EPI 2020) Glucose Calcium Magnesium Ferritin Total Bilirubin AST ALT Alkaline Phosphatase Lactate Dehydrogenase Cancelled Troponin I < 50 C-Reactive Protein 2.36 H Cancelled NT-Pro-B Natriuret Pep 515 H Total Protein 6.6 Albumin 3.4 Procalcitonin 0.8 Urine Color Yellow Urine Clarity Clear Urine pH 8.5 H Ur Specific [place] 1.020 Urine Protein 30 H Urine Ketones 15 H Urine Blood Moderate H Urine Nitrite Negative Urine Bilirubin Negative Urine Urobilinogen 0.2 Ur Leukocyte Esterase Negative Urine RBC 10-20 H Urine WBC 0-2 Ur Epithelial Cells Rare Urine Crystals Negative Urine Bacteria Rare Urine Casts Negative Urine Mucus Trace Ur Culture Indicated? No Urine Glucose Negative Last Vital Signs Temp 102.0 F H 02/11/23 08:35 Pulse 103 H 02/11/23 10:16 Resp 23 02/11/23 10:16 BP 111/53 L 02/11/23 10:16 Pulse Ox 98 02/11/23 10:16 Time Spent Time spent with Patient: >75 minutes Time was spent: preparing to see the patient(eg.review tests), obtaining and/or reviewing separately otained hiistory, ordering medications,tests, procedures, referring, communicating with other health rn long term care, indepentently interpreting results, counseling the patient and care coordination
[2023-02-11 11:47] LABS: Troponin I < 50 ng/L (<or=60)
[2023-02-11] MEDS: VANCOMYCIN/WATER (PEG) 1.5 GM/300 ML BAG IVPB (12:27)
[2023-02-11] MEDS: Lactated Ringers 500 ML IV (14:30)
[2023-02-11] MEDS: Heparin in 0.45% NaCl 25,000 UNIT/250 ML BAG 12 UNIT IV (15:16)
[2023-02-11] MEDS: CEFEPIME 2 GM in Normal Saline 100 ML IVPB (16:26)
[2023-02-11] MEDS: Ipratropium/Albuterol 4 GM 120 PUFF INH IH ×2 (16:49→21:33)
[2023-02-11] MEDS: Divalproex Sodium 500 MG TAB.ER.24H PO (21:28)
[2023-02-11] MEDS: Donepezil 5 MG TAB 10 MG PO (21:28)
[2023-02-11] MEDS: Memantine 5 MG TAB PO (21:28)
[2023-02-11] MEDS: Lacosamide 100 MG TAB PO (21:28)
[2023-02-11 22:37] LABS: PTT Activated > 155.0 sec (23.6-32.8)
[2023-02-12] VITALS (8 sets, daily range): BP systolic 104–149; BP diastolic 49–90; PULSE 72–98; RESP 17–26; TEMP 37.5–39.2; O2SAT 92–97
[2023-02-12] MEDS: Ipratropium/Albuterol 4 GM 120 PUFF INH IH ×3 (02:51→15:59)
[2023-02-12] MEDS: CEFEPIME 2 GM in Normal Saline 100 ML IVPB (02:51)
[2023-02-12 07:22] LABS: HCT 37.6 % (40.0-50.0); HGB 12.5 g/dL (13.5-17.5); MCHC 33.2 % (32.0-36.0); MCV 93 fL (80-95); MPV 9.7 fL (8.0-11.0); Platelet Count 141 10^3/uL (130-400); RBC 4.03 10^6/uL (4.36-5.78); RDW 14.3 % (11.8-14.1); RDW-SD 49.6 fL; WBC 8.96 10^3/uL (4.4-10.8)
[2023-02-12 07:29] LABS: Anion Gap 6.7 mmol/L (3-11); BUN 14 mg/dL (7-18); CO2 30.3 mmol/L (21.0-32.0); CREATININE 1.1 mg/dL (0.70-1.30); Calcium 8.2 mg/dL (8.5-10.1); Chloride 105 mmol/L (98-107); Estimated GFR 65.38 (mL/min/1.73m2); Glucose 97 mg/dL (74-106); Magnesium 1.8 mg/dL (1.8-2.4); Potassium 4.2 mmol/L (3.5-5.1); Sodium 142 mmol/L (136-145)
[2023-02-12 07:32] LABS: PTT Activated 49.7 sec (23.6-32.8)
[2023-02-12] MEDS: Pantoprazole 40 MG TABCR PO (09:04)
[2023-02-12] MEDS: Citalopram 10 MG TAB 20 MG PO (09:04)
[2023-02-12] MEDS: Divalproex Sodium 500 MG TAB.ER.24H PO ×2 (09:05→20:42)
[2023-02-12] MEDS: Lacosamide 100 MG TAB PO ×2 (09:05→20:42)
[2023-02-12] MEDS: Tamsulosin 0.4 MG CAPCR PO (09:05)
[2023-02-12] MEDS: Atorvastatin 40 MG TAB PO (09:06)
[2023-02-12] MEDS: Acetaminophen 325 MG TAB PO ×3 (09:19→21:37)
--- NOTE | 2023-02-12 09:50 | W.PM.PROGNOT ---
Date of Service Date of service: 02/12/23 Time of Service: 09:50 Assessment and Plan Assessment and plan (1) Severe sepsis: Status: Acute Assessment and plan: - Patient is criteria significant for severe sepsis with a temperature of 102 ?F, heart rate greater than 100, respiratory rate greater than 20, extreme source of infection being ongoing COVID-19 and possible hospital-acquired pneumonia -During previous hospitalization patient completed course of remdesivir, so this would not be continued at this time -Given concerns for hospital-acquired pneumonia, he has been started on vancomycin and cefepime which will be continued -Lactic acid was normal -We will follow-up a.m. CBC -We will discontinue Vanco and Zosyn as this is likely related to ongoing COVID-19 and PE (2) Pneumonia due to COVID-19 virus: Status: Acute Assessment and plan: - As noted above -Patient does remain intermittently febrile with a temperature of 102 this morning -May also be related to PE (3) Hospital acquired PNA: Status: Acute Assessment and plan: - As noted above (4) Pulmonary embolism associated with COVID-19: Status: Acute Assessment and plan: - In the emergency department patient was noted as being tachypneic, tachycardic and hypoxic requiring 2 L nasal cannula which prompted D-dimer which was elevated to about 1500 -Subsequent CTA PE protocol showed filling defect in the left lingula concerning for PE -This is likely secondary to patient's recent COVID-19 infection -Originally planned on on a heparin drip which will be continued for 48 hours and subsequently transitioned to p.o. Eliquis -However, overnight 02/11/2023 patient had blood from his [place] -Heparin drip was discontinued -We will monitor for further blood and urine, and plan to initiate Eliquis this afternoon (5) Acute respiratory failure with hypoxia: Status: Acute Assessment and plan: - Secondary to combination of ongoing COVID-19, possible hospital-acquired pneumonia and PE as noted above -Currently on 1 L nasal cannula, will wean as tolerated (6) Dementia: Assessment and plan: - Continue home medication regimen Qualifiers: Dementia type: other frontotemporal dementia Dementia severity: moderate Dementia behavioral or psychological symptom: with other behavioral disturbance Qualified Code(s): G31.09 - Other frontotemporal neurocognitive disorder; F02.B18 - Dementia in other diseases classified elsewhere, moderate, with other behavioral disturbance (7) Seizure: Assessment and plan: - Continue home medication regimen (8) HTN (hypertension): Assessment and plan: - Continue home medication regimen (9) CAD (coronary artery disease): Assessment and plan: - Continue home medication regimen Qualifiers: Coronary Disease-Associated Artery/Lesion type: [place] artery [place] vs. transplanted heart: [place] heart Associated angina: without angina Qualified Code(s): I25.10 - Atherosclerotic heart disease of [place] coronary artery without angina pectoris Subjective Subjective Interval history since last seen: Patient states that he is feeling much better today. He is anxious to go home but understands that we will continue to monitor his oxygen requirements, as well as his persistent fevers. Exam Narrative Exam Narrative: Well-appearing older gentleman sitting up in bed in no acute distress, oriented to person only, heart regular rate rhythm, lungs clear to auscultation bilaterally, abdomen soft, nontender, nondistended Objective Last Vital Signs Temp 102.0 F H 02/12/23 09:19 Pulse 81 02/12/23 08:54 Resp 26 H 02/12/23 08:54 BP 149/49 H 02/12/23 08:54 Pulse Ox 93 02/12/23 08:54 Laboratory Results - last 24 hr 02/11/23 02/11/23 02/11/23 11:20 12:20 21:50 WBC RBC Hgb Hct MCV MCH MCHC RDW Plt Count MPV APTT > 155.0 H* VBG Lactate 1.0 Sodium Potassium Chloride Carbon Dioxide Anion Gap BUN Creatinine Est GFR (CKD-EPI 2020) Glucose Calcium Magnesium Troponin I < 50 02/12/23 06:20 WBC 8.96 RBC 4.03 L Hgb 12.5 L D Hct 37.6 L MCV 93 MCH 31.0 MCHC 33.2 RDW 14.3 H Plt Count 141 MPV 9.7 APTT 49.7 H VBG Lactate Sodium 142 Potassium 4.2 Chloride 105 Carbon Dioxide 30.3 Anion Gap 6.7 BUN 14 Creatinine 1.1 Est GFR (CKD-EPI 2020) 65.38 Glucose 97 Calcium 8.2 L Magnesium 1.8 Troponin I Time Spent with Patient Time Spent with Patient: >50 minutes Time was spent: preparing to see the patient(eg.review tests), obtaining and/or reviewing separately otained hiistory, ordering medications,tests, procedures, referring, communicating with other health career coach, indepentently interpreting results, counseling the patient and care coordination
--- NOTE | 2023-02-12 10:44 | W.PM.PROGNOT ---
Date of Service Date of service: 02/12/23 Time of Service: 10:56 Assessment and Plan Assessment and plan (1) Severe sepsis: Status: Acute Assessment and plan: - Patient is criteria significant for severe sepsis with a temperature of 102 ?F, heart rate greater than 100, respiratory rate greater than 20, extreme source of infection being ongoing COVID-19 and possible hospital-acquired pneumonia -During previous hospitalization patient completed course of remdesivir, so this would not be continued at this time -Given concerns for hospital-acquired pneumonia, he has been started on vancomycin and cefepime which will be continued -Lactic acid was normal -We will follow-up a.m. CBC -We will discontinue Vanco and Zosyn as this is likely related to ongoing COVID-19 and PE (2) Pneumonia due to COVID-19 virus: Status: Acute Assessment and plan: - As noted above -Patient does remain intermittently febrile with a temperature of 102 this morning -May also be related to PE (3) Hospital acquired PNA: Status: Acute Assessment and plan: - As noted above (4) Pulmonary embolism associated with COVID-19: Status: Acute Assessment and plan: - In the emergency department patient was noted as being tachypneic, tachycardic and hypoxic requiring 2 L nasal cannula which prompted D-dimer which was elevated to about 1500 -Subsequent CTA PE protocol showed filling defect in the left lingula concerning for PE -This is likely secondary to patient's recent COVID-19 infection -Originally planned on on a heparin drip which will be continued for 48 hours and subsequently transitioned to p.o. Eliquis -However, overnight 02/11/2023 patient had blood from his [place] -Heparin drip was discontinued -We will monitor for further blood and urine, and plan to initiate Eliquis this afternoon (5) Acute respiratory failure with hypoxia: Status: Acute Assessment and plan: - Secondary to combination of ongoing COVID-19, possible hospital-acquired pneumonia and PE as noted above -Currently on 1 L nasal cannula, will wean as tolerated (6) Dementia: Assessment and plan: - Continue home medication regimen Qualifiers: Dementia behavioral or psychological symptom: with other behavioral disturbance Dementia severity: moderate Dementia type: other frontotemporal dementia Qualified Code(s): G31.09 - Other frontotemporal neurocognitive disorder; F02.B18 - Dementia in other diseases classified elsewhere, moderate, with other behavioral disturbance (7) Seizure: Assessment and plan: - Continue home medication regimen (8) HTN (hypertension): Assessment and plan: - Continue home medication regimen (9) CAD (coronary artery disease): Assessment and plan: - Continue home medication regimen Qualifiers: Associated angina: without angina Coronary Disease-Associated Artery/Lesion type: [place] artery [place] vs. transplanted heart: [place] heart Qualified Code(s): I25.10 - Atherosclerotic heart disease of [place] coronary artery without angina pectoris Subjective Subjective Interval history since last seen: Patient states that he is feeling much better today. He is anxious to go home but understands that we will continue to monitor his oxygen requirements, as well as his persistent fevers. Exam Narrative Exam Narrative: Well-appearing older gentleman sitting up in bed in no acute distress, oriented to person only, heart regular rate rhythm, lungs clear to auscultation bilaterally, abdomen soft, nontender, nondistended Objective Last Vital Signs Temp 102.0 F H 02/12/23 09:19 Pulse 81 02/12/23 08:54 Resp 26 H 02/12/23 08:54 BP 149/49 H 02/12/23 08:54 Pulse Ox 93 02/12/23 08:54 Laboratory Results - last 24 hr 02/11/23 02/11/23 02/11/23 11:20 12:20 21:50 WBC RBC Hgb Hct MCV MCH MCHC RDW Plt Count MPV APTT > 155.0 H* VBG Lactate 1.0 Sodium Potassium Chloride Carbon Dioxide Anion Gap BUN Creatinine Est GFR (CKD-EPI 2020) Glucose Calcium Magnesium Troponin I < 50 02/12/23 06:20 WBC 8.96 RBC 4.03 L Hgb 12.5 L D Hct 37.6 L MCV 93 MCH 31.0 MCHC 33.2 RDW 14.3 H Plt Count 141 MPV 9.7 APTT 49.7 H VBG Lactate Sodium 142 Potassium 4.2 Chloride 105 Carbon Dioxide 30.3 Anion Gap 6.7 BUN 14 Creatinine 1.1 Est GFR (CKD-EPI 2020) 65.38 Glucose 97 Calcium 8.2 L Magnesium 1.8 Troponin I Time Spent with Patient Time Spent with Patient: >50 minutes Time was spent: preparing to see the patient(eg.review tests), obtaining and/or reviewing separately otained hiistory, ordering medications,tests, procedures, referring, communicating with other health intensive care ambulance paramedic, indepentently interpreting results, counseling the patient and care coordination
[2023-02-12] MEDS: Memantine 5 MG TAB PO (20:42)
[2023-02-12] MEDS: Donepezil 5 MG TAB 10 MG PO (20:42)
[2023-02-12] MEDS: Apixaban 5 MG TAB 10 MG PO (20:43)
--- NOTE | 2023-02-12 21:05 | NUR.NOTE ---
Nursing Note:2100 Patient is febrile at 39.5 C, Tylenol was given and cannot be repeated immediately. Placed ice packs in axilia and between thighs to help reduce temp. Will recheck soon for updated temp.
[2023-02-13] VITALS (13 sets, daily range): BP systolic 114–171; BP diastolic 61–84; PULSE 72–104; RESP 17–28; TEMP 37.1–39.9; O2SAT 90–95
[2023-02-13] MEDS: Acetaminophen 325 MG TAB PO ×4 (03:56→21:14)
[2023-02-13] MEDS: Ipratropium/Albuterol 4 GM 120 PUFF INH IH ×4 (05:32→20:52)
[2023-02-13 06:56] LABS: HCT 34.2 % (40.0-50.0); HGB 11.6 g/dL (13.5-17.5); MCH 30.7 pg (27.0-33.0); MCHC 33.9 % (32.0-36.0); MCV 91 fL (80-95); MPV 9.5 fL (8.0-11.0); Platelet Count 135 10^3/uL (130-400); RBC 3.78 10^6/uL (4.36-5.78); RDW 13.9 % (11.8-14.1); RDW-SD 46.6 fL; WBC 5.46 10^3/uL (4.4-10.8)
[2023-02-13 07:03] LABS: Anion Gap 8.5 mmol/L (3-11); BUN 13 mg/dL (7-18); CO2 26.5 mmol/L (21.0-32.0); Calcium 8.3 mg/dL (8.5-10.1); Chloride 102 mmol/L (98-107); Glucose 107 mg/dL (74-106); Potassium 3.6 mmol/L (3.5-5.1); Sodium 137 mmol/L (136-145)
[2023-02-13] MEDS: Normal Saline Flush 10 ML SYR IVP (07:48)
[2023-02-13] MEDS: Divalproex Sodium 500 MG TAB.ER.24H PO ×2 (07:50→20:51)
[2023-02-13] MEDS: Apixaban 5 MG TAB 10 MG PO ×2 (07:50→20:51)
[2023-02-13] MEDS: Pantoprazole 40 MG TABCR PO (07:50)
[2023-02-13] MEDS: Citalopram 10 MG TAB 20 MG PO (07:51)
[2023-02-13] MEDS: Tamsulosin 0.4 MG CAPCR PO (07:51)
[2023-02-13] MEDS: Atorvastatin 40 MG TAB PO (07:51)
[2023-02-13] MEDS: Lacosamide 100 MG TAB PO ×2 (07:51→20:51)
[2023-02-13 12:18] LABS: Bilirubin Small (Negative); Blood Large (Negative); Clarity Clear (Clear); Glucose Negative (Negative); Ketones 40 mg/dL (Negative); Leukocyte Esterase Negative (Negative); Nitrite Negative (Negative); Specific Gravity >= 1.030 (1.005-1.025); Urobilinogen 0.2 mg/dL (Up to 0.2)
[2023-02-13 12:35] LABS: Bacteria Rare HPF (Negative); Crystals Negative HPF (Negative); Epithelial Cells Negative HPF (Negative); RBC >50 HPF (0-2); WBC 0-2 HPF (0-5)
[2023-02-13 12:36] LABS: C & S Indicated? No; Casts Negative LPF (Negative); Mucus Trace (Negative)
[2023-02-13 12:38] LABS: HGB 12.4 g/dL (13.5-17.5)
--- NOTE | 2023-02-13 17:10 | PDOC.CMIN ---
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) Pre-diabetes (Acute) Lung nodule (Acute) Lumbar spinal stenosis (Acute) Hyperlipidemia (Acute) GERD (gastroesophageal reflux disease) (Chronic) Depression, recurrent (Chronic) Dementia with behavioral disturbance (Acute) Cognitive changes (Acute) COAG (chronic open-angle glaucoma) (Acute) Status post cataract extraction of both eyes with insertion of intraocular lens (Acute) Benign prostatic hyperplasia (Chronic) Basal cell carcinoma of nose (Acute) ASCVD (arteriosclerotic cardiovascular disease) (Acute) Anxiety (Chronic) Congestive heart failure (Acute) Hx of falling (Acute) Concern about end of life (Acute) Pulmonary embolism associated with COVID-19 (Acute) COPD (chronic obstructive pulmonary disease) (Chronic) Breakthrough seizure (Acute) Medical History Broken arm CAD (coronary artery disease) Cataract Dementia H/O non-insulin dependent diabetes mellitus Hx of colonic polyp Hx of hyperlipidemia Myocardial infarction Neck pain Palliative care patient Paroxysmal atrial fibrillation Pneumonia Primary cutaneous marginal zone B-cell lymphoma Pulmonary embolism without acute cor pulmonale Seizure disorder Skin cancer of anterior chest UTI (urinary tract infection) Surgical History History of coronary artery stent placement History of tonsillectomy Family History Maternal Grandfather Leukemia Mother Alcohol use disorder Anxiety Cancer Social History Smoking/Tobacco Use Status: Former Tobacco Use Tobacco: How many years used: 40 Second Hand Exposure: Yes Smoking risk assessment performed?: Yes Alcohol Intake: current Alcohol Intake frequency: holidays/special occasions only Drug use: Never Substance use type: does not use Adopted: No Foster care: No Household members: spouse Housing: house Number of Children: 4 Communication Needs: Hard of Hearing and Corrective Lenses Education Level: high school Do you need help understanding health information?: Often current occupation: retired Pets and animals: No Sexually active: No Do you think of yourself as: straight/heterosexual Current gender identity: male What is your relationship status?: How often do you talk on the phone with friends or family?: three or more times per week How often do you get together with friends or relatives?: decline to answer Do you belong to any clubs or organized social groups?: no Panel score (0-1 are the most socially isolated patients): 2 What type of physical activity do you participate in: additional Details: is in PT twice a week Duration: 15-30 minutes/day Frequency: 5-6 times per week Meenu/Restorationism: [place] Special meenu needs: No Seatbelt use: always Helmet use: No Drive intox or ride w/intox tank driver: No Do you feel safe at home: Yes Do you feel safe in your relationship?: Yes Readmission Within the Past 30 Days Yes or No: Yes Date of First Admission Date of 1st Admission: 02/05/23 Date of this Admission Date of Admission: 02/11/23 If the patient had a VNA ordered Did the patient have a VNA order?: Yes Did you call the VNA before you came?: No If the patient had home care service Call them to discuss the patient's admission: unsure if services were actually initiated
--- NOTE | 2023-02-13 18:54 | PGE_ITS ---
Date of Service Date of service: 02/13/23 Time of Service: 18:54 Assessment and Plan Assessment and plan (1) Severe sepsis: Status: Acute Assessment and plan: Does have an elevation of procalcitonin and had a fever today. Resume antibiotics. Presumed source: 2ndary bacterial pneumonia. (2) Pneumonia due to COVID-19 virus: Status: Acute Assessment and plan: Finished remdesivir. He is on RA at this time. Consider resumption of remdesivir. Continue precautions. Encourage IS and acapella. (3) Hospital acquired PNA: Status: Acute Assessment and plan: As above (4) Pulmonary embolism associated with COVID-19: Status: Acute Assessment and plan: Continue apixaban (5) Acute respiratory failure with hypoxia: Status: Resolved Assessment and plan: Multifactorial, due to COVID-19, acute PE, HCAP. Now on RA. Monitor O2 sats. (6) Dementia: Assessment and plan: Behaviors controlled. Continue donepezil and namenda. Qualifiers: Dementia type: other frontotemporal dementia Dementia severity: moderate Dementia behavioral or psychological symptom: with other behavioral disturbance Qualified Code(s): G31.09 - Other frontotemporal neurocognitive disorder; F02.B18 - Dementia in other diseases classified elsewhere, moderate, with other behavioral disturbance (7) Seizure: Assessment and plan: Continue lacosamide, depakote ER (8) HTN (hypertension): Assessment and plan: Not on any medications at this time. NO change in therapy. (9) CAD (coronary artery disease): Assessment and plan: Clopidogrel and asa are on hold. I will try to verify why. Continue statin. I will restart baby asa. Qualifiers: Coronary Disease-Associated Artery/Lesion type: [place] artery [place] vs. transplanted heart: [place] heart Associated angina: without angina Q ualified Code(s): I25.10 - Atherosclerotic heart disease of [place] coronary artery without angina pectoris (10) DVT prophylaxis: Status: Acute Assessment and plan: on therapeutic anticoagulation (11) Discharge planning issues: Status: Acute Assessment and plan: Full code Palliative and PT consulted. Subjective Subjective Interval history since last seen: Mr Mortensen states that he is feeling better. He denies cough, but is coughing while denying it. Denies dizziness, CP, SOB, n. He was febrile today to 38.9 and is being initiated on antibiotics. Exam Narrative Exam Narrative: General: Pleasant elderly male who is A&Ox2, NAD, has a dry cough HEENT: EOMI, MMM Heart: RRR, no m/r/g Lungs: Expiratory wheezing B Abdomen: soft, nontender, nondistended Extremities: no edema BLEs Objective Last Vital Signs Temp 37.1 C 02/13/23 15:00 Pulse 76 02/13/23 15:00 Resp 18 02/13/23 15:00 BP 114/64 02/13/23 15:00 Pulse Ox 92 02/13/23 15:00 Laboratory Results - last 24 hr 02/13/23 02/13/23 02/13/23 06:30 12:00 12:25 WBC 5.46 RBC 3.78 L Hgb 11.6 L 12.4 L Hct 34.2 L 36.0 L MCV 91 MCH 30.7 MCHC 33.9 RDW 13.9 Plt Count 135 MPV 9.5 Sodium 137 Potassium 3.6 Chloride 102 Carbon Dioxide 26.5 Anion Gap 8.5 BUN 13 Creatinine 1.0 Est GFR (CKD-EPI 2020) 73.30 Glucose 107 H Calcium 8.3 L Urine Color Yellow Urine Clarity Clear Urine pH 6.0 Ur Specific [place] >= 1.030 H Urine Protein 100 H Urine Ketones 40 H Urine Blood Large H Urine Nitrite Negative Urine Bilirubin Small H Urine Urobilinogen 0.2 Ur Leukocyte Esterase Negative Urine RBC >50 H Urine WBC 0-2 Ur Epithelial Cells Negative Urine Crystals Negative Urine Bacteria Rare Urine Casts Negative Urine Mucus Trace Ur Culture Indicated? No Urine Glucose Negative Time Spent with Patient Time Spent with Patient: 35-49 minutes Time was spent: preparing to see the patient(eg.review tests), obtaining and/or reviewing separately otained hiistory, ordering medications,tests, procedures, referring, communicating with other health technical healthcare consultant, indepentently interpreting results, counseling the patient and care coordination
[2023-02-13 18:58] LABS: Lab Add On Test DONE
[2023-02-13 19:32] LABS: Procalcitonin 1.7 ng/mL
[2023-02-13] MEDS: VANCOMYCIN 1,250 MG in Normal Saline 250 ML 166.667 MG IVPB (20:51)
[2023-02-13] MEDS: Donepezil 5 MG TAB 10 MG PO (21:14)
[2023-02-13] MEDS: Memantine 5 MG TAB PO (21:14)
[2023-02-13] MEDS: CEFEPIME 2 GM in Normal Saline 100 ML IVPB (22:30)
[2023-02-13] MEDS: DOXYCYCLINE 100 MG in Normal Saline 100 ML IVPB (22:35)
[2023-02-13 23:57] LABS: Vancomycin, Peak 25.2 ug/mL (25.0-40.0)
[2023-02-14] VITALS (21 sets, daily range): BP systolic 85–147; BP diastolic 52–79; PULSE 56–133; RESP 16–28; TEMP 36.1–38.9; O2SAT 90–96
--- NOTE | 2023-02-14 | DI.US_ITS ---
Exam(s) US EXTREMITY VENOUS BI EXAM: US EXTREMITY VENOUS BI CLINICAL HISTORY: Acute PE, concern for DVT. TECHNIQUE: Bilateral lower extremity venous ultrasound performed using grayscale, color-flow, and sp ectral Doppler analysis. COMPARISON: No exams were available for comparison FINDINGS: The bilateral common femoral, femoral and popliteal veins demonstrate normal compressibility, augment ation, and color Doppler. The posterior tibial veins are patent. The peroneal veins are patent. IMPRESSION: Right: Negative for DVT Left: Negative for DVT DATA REPOSITORY:
--- NOTE | 2023-02-14 | DI.US_ITS ---
APPROVED REPORT EXAM: Comprehensive 2D, Doppler, and color-flow Echocardiogram Patient Location: In-Patient Room/Bed: 214 Physician Coding Specialist: Chauncey Bueno RDCS (AE) Indications: acute PE, new afib, covid Other Information Study Quality: Adequate. Technically limited study due to inability to position patient. Conclusion Normal left ventricular wall thickness and chamber size. Ejection fraction is 55%. Wall motion is n ormal. Diastolic function is normal for age Normal right ventricular size and systolic function. Both atria are normal in size Aortic valve is sclerotic and trileaflet with mild regurgitation Normal mitral valve with mild regurgitation Normal tricuspid valve with mild regurgitation. Estimated right ventricular systolic pressure is 32 mmHg Wall motion Left Ventricle The left ventricle is normal size. The left ventricular systolic function is normal. The left ventric ular ejection fraction is within the normal range. There is normal left ventricular wall thickness. T here is normal LV segmental wall motion. There is no ventricular septal defect visualized. LVEF is 55 %. Right Ventricle The right ventricle is normal size. The right ventricular systolic function is normal. The RVSP is 31 .6 mmHg. Atria The left atrium size is normal. The right atrium size is normal. The interatrial septum is intact wit h no evidence for an atrial septal defect. Aortic Valve The Aortic valve is sclerotic. Aortic valve is trileaflet. There is no aortic valvular stenosis. Mild aortic regurgitation. Mitral Valve The mitral valve is normal in structure. No evidence of mitral valve stenosis. Mild mitral regurgitat ion. Tricuspid Valve The tricuspid valve is normal in structure. There is no tricuspid valve stenosis. Mild tricuspid regu rgitation. Pulmonic Valve The pulmonary valve is normal in structure. There is no pulmonic valvular stenosis. Trace pulmonic re gurgitation. Great Vessels The aortic root is normal in size. Ascending aorta is not well visualized. Aortic arch is not well vi sualized. IVC is normal in size and collapses >50% with inspiration. Pericardium There is no pericardial effusion. 2D Dimensions IVSD d PLAX 1.22 cm M: 0.6-1.2 Ao Root d 2.50 cm M: 3.1 - 3.7 LVPW d PLAX 1.18 cm M: 0.6 - 1.2 LVID d PLAX 4.53 cm M: 4.2 - 5.8 LVDs 2.67 cm M: 2.5 - 4.0 LV EF Teichholz 71.9 % FS 40.99 % LV EDV (Teich) 94.0 mL LV ESV (Teich) 26.4 mL Stroke Vol Index (Teich) 39.31 M-Mode TAPSE 2.30 cm (M/F) >1.7 Auto EF LV EDV A4C 72.3 mL LV EDV A2C 91.6 mL LV EDV BP 79.9 mL LV ESV A4C 41.9 mL LV ESV A2C 56.6 mL LV ESV BP 48.7 mL LVEF(%) A4C 42.1 % LVEF(%) A2C 38.2 % LVEF(%) BP 39.0 % LV SV A4C 30.5 ml LV SV A2C 35.0 ml LV SV BP 31.2 ml LV CO A4C 1.6 L/min LV CO A2C 1.9 L/min LV CO BP 1.8 L/min HR A4C 53.34 BPM HR A2C 55.47 BPM LV EDV Index (BP) LA Volume LA Length A4C 4.9 cm LA Length A2C LA Area A4C s 8.82 cm2 LA Area A2C s LA Vol A4C A-L 13.42 mL LA Vol A2C A-L LA Vol Biplane A-L LA Vol A4C MOD 12.7 mL LA Vol A2C MOD LA Vol BP MOD RA Volume RA Area A4C 11.0 cm2 RA ESV A4C (A-L) 26.5mL RA Vol/BSA A4C A-L RA Length A4C 3.8 cm RA ESV A4C (MOD) 24.4mL LV Diastology MV E' medial 0.075 (>0.07 m/s) MV E Vmax 0.73 (0.4-1.3 m/s) MV E/E' MED 9.68 (<14) MV A Vmax 0.70 (0.4-1.3 m/s) MV E' lateral 0.098 (>0.1 m/s) E/A Ratio 1.0 MV E/E' LAT 7.46 (<14) MV E' Average 0.086 m/s MV E/E'(average) 8.43 Aortic Valve AoV Vmax 1.96 m/s LVOT Vmax 1.06 m/s AoV Peak Grad 15.4 mmHg LVOT Peak Grad 4.5 mmHg AoV Area (Vmax) 1.36 cm2 LVOT VTI 0.252 m AoV VTI 0.502 m LVOT Mean Grad 2.4 mmHg AoV Mean Adama. 1.33 m/s LVOT SV 63.73 mL AoV Mean Grad 8.2 mmHg LVOT Diam s 1.75 cm AoV Area (VTI) 1.27 cm2 Velocity Ratio 0.54 Mitral Valve MV DT 116 (160-240 msec) MR Vmax 4.33 m/s MV Vmax TIPS 0.76 m/s MR VTI 1.161 m MV Mean Grad 0.8 (<2mmHg) MR Peak Grad 75.1 mmHg MV VTI 0.331 m MR Mean Grad 51.5 mmHg MR PISA Radius 0.52 cm MR Aliasing Velocity 0.30 m/s Pulmonary Valve PV Vmax 0.87 (0.5-1.5 m/s) RVOT Vmax 0.55 m/s PV Peak Grad 3.1 mmHg RVOT Peak Gr. 1.2 mmHg PV Mean Adama 0.60 m/s RVOT VTI 0.142 m PV Mean Grad 1.6 mmHg RVOT Mean Gr. 0.6 mmHg Tricuspid Valve RA Pressure 3.00 mmHg TR Vmax 2.68 m/s TR Peak Grad 28.6 mmHg RVSP (TR) 31.6 mmHg
[2023-02-14] MEDS: Acetaminophen 325 MG TAB PO ×3 (01:25→10:08)
[2023-02-14] MEDS: Ipratropium/Albuterol 4 GM 120 PUFF INH IH ×4 (04:44→22:20)
[2023-02-14] MEDS: CEFEPIME 2 GM in Normal Saline 100 ML IVPB ×2 (06:54→17:34)
[2023-02-14 06:57] LABS: Abs Immature Grans 0.19 10^3/uL (0.0-0.06); Absolute Basophil Count 0.02 10^3/uL (0.0-0.2); Absolute Eosinophil Count 0.08 10^3/uL (0.0-0.7); Absolute Lymphocyte Count 0.45 10^3/uL (1.2-3.4); Absolute Monocyte Count 1.28 10^3/uL (0.1-0.8); Absolute Neutrophil Count 2.75 10^3/uL (1.2-6.7); Basophils % 0.4; Eosinophils % 1.7; HCT 37.5 % (40.0-50.0); HGB 12.8 g/dL (13.5-17.5); Lymphocytes % 9.4; MCHC 34.1 % (32.0-36.0); MCV 91 fL (80-95); Monocytes % 26.8; Neutrophils % 57.7; Platelet Count 107 10^3/uL (130-400); RBC 4.13 10^6/uL (4.36-5.78); RDW-SD 46.8 fL; WBC 4.77 10^3/uL (4.4-10.8)
[2023-02-14 07:17] LABS: Anion Gap 9.3 mmol/L (3-11); BUN 13 mg/dL (7-18); CO2 25.7 mmol/L (21.0-32.0); Calcium 8.4 mg/dL (8.5-10.1); Chloride 101 mmol/L (98-107); Glucose 94 mg/dL (74-106); Magnesium 2.1 mg/dL (1.8-2.4); Potassium 3.5 mmol/L (3.5-5.1); Sodium 136 mmol/L (136-145)
--- NOTE | 2023-02-14 07:30 | RT.EKG_ITS ---
APPROVED REPORT Exam: Resting ECG Reason for Exam: New onset rapid Afib Patient Location: I HR:142 bpm ECG Measurements Heart Rate 142 AXIS DC [id number] P [id number] QRSd 109 QRS -60 QT 299 T 106 QTc 460 Conclusion Atrial fibrillation with rapid V-rate...A-rate 388 Ventricular premature complex...V complex w/ short R-R interval Left anterior fascicular block...axis(240,-40), init forces inf Anteroseptal infarct, old...Q >40mS, V1-V2 Repolarization abnormality, prob rate related...ST dep, T neg, tachycardia
--- NOTE | 2023-02-14 08:13 | PCNE_ITS ---
Date of service: 02/14/23 Time of Service: 08:14 History of Present Illness History of Present Illness Chief Complaint: fever, hypoxia Narrative: From H and P History of Present Illness Chief Complaint: Fever, altered mental status Narrative: 87-year-old male with past medical history of dementia, CAD, AR, hyperlipidemia, hypertension, lung cancer and seizure previously on palliative care who is still full code, and was recently hospitalized at [facility] from 02/05/2023 to 02/08/2023 for COVID-pneumonia presents back to the emergency department with fever and altered mental status. Patient's states that patient has been doing well until this morning where he did not take most of his medications and noted that he was febrile and confused. He was also noted that he had increasing productive cough with green- yellow sputum. He denied any headache, lightheadedness, dizziness, chest pain, nausea vomiting or diarrhea. In the emergency department patient was noted to have a fever of 102 ?F, was tachycardic with a heart rate of 100, blood pressure was 164/71, respiratory rate was 34, and he required 2 L nasal cannula to maintain oxygen saturation greater than 92%. CBC showed a white blood cell count of 5.1, CMP was unremarkable, CRP was 2.36, proBNP was 515, troponin was negative, procalcitonin was 0.8, UA was negative, but D-dimer was elevated to 1581. This prompted a chest CTA PE that showed filling defect in the left lingula's suggestive of pulmonary embolus, as well as persistent groundglass opacities consistent with COVID-19 pneumonia. At which time emergency room PA initiated vancomycin and cefepime for additional concern for hospital-acquired pneumonia given recent hospitalization, and patient hospitalist team for admission for patient with severe sepsis secondary to presumed hospital-acquired pneumonia, as well as pulmonary embolus. INTERIM HX: I went in to see Ed today. I had seen him during his last admission and had planned a home follow-up. Unfortunately he came back with fever, hypoxia, and probable presently PE and hospital-acquired pneumonia. He did have COVID- pneumonia when he was in last week. Ed states that he is very tired. He was a bit confused and really did not know for sure where he was. Assessment and Plan Assessment and plan (1) Atrial fibrillation with rapid ventricular response: Status: Acute Assessment and plan: Although Dr. Herron was already informed I did go and talk to her about this. I had not heard an irregular heartbeat in the past (2) Acute respiratory failure with hypoxia: Status: Acute Assessment and plan: He is on supplemental oxygen (3) Pulmonary embolism associated with COVID-19: Status: Acute (4) Hospital acquired PNA: Status: Acute Assessment and plan: He is on antibiotics for presumed hospital-acquired pneumonia (5) Severe sepsis: Status: Acute (6) Dementia: Assessment and plan: He is definitely more confused today. He is very fatigued. Has he could clearly talk about his concerns etc. and always wanted to be near his . Today he could really only get out a couple word sentences and then just kept saying he was exhausted he was exhausted In the past when he was here last week both his and daughter had severe COVID. I will reach out to them again and see if they are able to discuss his present situation. When I spoke to Hilda, his daughter, last week she states that her mother wants it to stay alive as long as he possibly can. She also does not feel that she needs a lot of help with him at home. Qualifiers: Dementia type: other frontotemporal dementia Dementia severity: m oderate Dementia behavioral or psychological symptom: with other behavioral disturbance Qualified Code(s): G31.09 - Other frontotemporal neurocognitive disorder; F02.B18 - Dementia in other diseases classified elsewhere, moderate, with other behavioral disturbance Review of Systems Narrative: Ed states that he is mostly just very tired Constitutional Comments: Ed looks to have christos cheeks. He is quite muddled today. He has dementia but baseline but today he seems more confused PFSH All Active Problems (Updated 02/14/23 @ 10:03 by Radha Herron MD) Atrial fibrillation with rapid ventricular response (Acute) Discharge planning issues (Acute) DVT prophylaxis (Acute) Acute respiratory failure with hypoxia (Acute) Pulmonary embolism associated with COVID-19 (Acute) Hospital acquired PNA (Acute) Pneumonia due to COVID-19 virus (Acute) Severe sepsis (Acute) Pneumonia (Acute) COPD (chronic obstructive pulmonary disease) (Chronic) Breakthrough seizure (Acute) Rib fractures (Acute) Medical History Palliative care patient CAD (coronary artery disease) Seizure disorder H/O non-insulin dependent diabetes mellitus UTI (urinary tract infection) Kidney stones Myocardial infarction Hx of hyperlipidemia HTN (hypertension) Lung cancer Dementia Seizure Surgical History History of tonsillectomy History of coronary artery stent placement Family History Maternal Grandfather Leukemia Social History Smoking/Tobacco Use Status: Never Smoking risk assessment performed?: Yes Alcohol Intake: never Substance use type: does not use Housing: house Do you feel safe at home: Yes Do you feel safe in your relationship?: Yes Exam Narrative Exam Narrative: Ed is lying in his bed. His face is a bit flushed. He seems exhausted and can only answer things in short sentences. He has very little air movement. His heart is tachycardic and irregular. Results Last Vital Signs Temp 100.6 F H 02/14/23 07:40 Pulse 125 H 02/14/23 07:40 Resp 28 H 02/14/23 07:40 BP 147/70 H 02/14/23 07:40 Pulse Ox 96 02/14/23 07:40 Labs 02/14/23 06:10 02/14/23 06:10 Labs: Laboratory Results - last 24 hr 02/13/23 02/13/23 02/13/23 06:30 12:00 12:25 WBC RBC Hgb 12.4 L Hct 36.0 L MCV MCH MCHC RDW Plt Count MPV Immature Gran % Neutrophils % Lymphocytes % Monocytes % Eosinophils % Basophils % Nucleated RBC % Absolute Neutrophils Absolute Lymphocytes Absolute Monocytes Absolute Eosinophils Absolute Basophils Sodium Potassium Chloride Carbon Dioxide Anion Gap BUN Creatinine Est GFR (CKD-EPI 2020) Glucose Calcium Magnesium Procalcitonin 1.7 Urine Color Yellow Urine Clarity Clear Urine pH 6.0 Ur Specific [place] >= 1.030 H Urine Protein 100 H Urine Ketones 40 H Urine Blood Large H Urine Nitrite Negative Urine Bilirubin Small H Urine Urobilinogen 0.2 Ur Leukocyte Esterase Negative Urine RBC >50 H Urine WBC 0-2 Ur Epithelial Cells Negative Urine Crystals Negative Urine Bacteria Rare Urine Casts Negative Urine Mucus Trace Ur Culture Indicated? No Urine Glucose Negative Vancomycin Peak Add-On Test Request DONE 02/13/23 02/14/23 23:32 06:10 WBC 4.77 RBC 4.13 L Hgb 12.8 L Hct 37.5 L MCV 91 MCH 31.0 MCHC 34.1 RDW 14.0 Plt Count 107 L MPV 10.0 Immature Gran % 4.0 Neutrophils % 57.7 Lymphocytes % 9.4 Monocytes % 26.8 Eosinophils % 1.7 Basophils % 0.4 Nucleated RBC % 0.0 Absolute Neutrophils 2.75 Absolute Lymphocytes 0.45 L Absolute Monocytes 1.28 H Absolute Eosinophils 0.08 Absolute Basophils 0.02 Sodium 136 Potassium 3.5 Chloride 101 Carbon Dioxide 25.7 Anion Gap 9.3 BUN 13 Creatinine 1.0 Est GFR (CKD-EPI 2020) 73.30 Glucose 94 Calcium 8.4 L Magnesium 2.1 Procalcitonin Urine Color Urine Clarity Urine pH Ur Specific [place] Urine Protein Urine Ketones Urine Blood Urine Nitrite Urine Bilirubin Urine Urobilinogen Ur Leukocyte Esterase Urine RBC Urine WBC Ur Epithelial Cells Urine Crystals Urine Bacteria Urine Casts Urine Mucus Ur Culture Indicated? Urine Glucose Vancomycin Peak 25.2 Add-On Test Request Imaging EKG: report reviewed
[2023-02-14] MEDS: Metoprolol 5 MG/5 ML VIAL 2.5 MG IVP (08:19)
[2023-02-14] MEDS: Normal Saline Flush 10 ML SYR IVP (08:21)
[2023-02-14] MEDS: Apixaban 5 MG TAB 10 MG PO ×2 (08:23→21:06)
[2023-02-14] MEDS: Lacosamide 100 MG TAB PO ×2 (08:24→21:05)
[2023-02-14] MEDS: Aspirin E.C. 81 MG TABEC PO (08:24)
[2023-02-14] MEDS: Citalopram 10 MG TAB 20 MG PO (08:25)
[2023-02-14] MEDS: Tamsulosin 0.4 MG CAPCR PO (08:26)
[2023-02-14] MEDS: Atorvastatin 40 MG TAB PO (08:27)
[2023-02-14] MEDS: Pantoprazole 40 MG TABCR PO (08:27)
[2023-02-14] MEDS: Divalproex Sodium 500 MG TAB.ER.24H PO ×2 (08:34→21:06)
[2023-02-14 08:46] LABS: Troponin I < 50 ng/L (<or=60)
--- NOTE | 2023-02-14 09:44 | W.PM.PROGNOT ---
Date of Service Date of service: 02/14/23 Time of Service: 09:44 Assessment and Plan Assessment and plan (1) Severe sepsis: Status: Acute Assessment and plan: Procalcitonin had actually gone up from 0.8 on 02/11/23 to 1.7 on 02/13/23. Antibiotics resumed yesterday (vancomycin, cefepime, doxycycline). Continue empiric abx. Check MRSA nares. Await blood culture results. I suspect the source is a 2ndary bacterial pneumonia. (2) Pneumonia due to COVID-19 virus: Status: Acute Assessment and plan: Finished remdesivir. He does have an oxygen requirement today. I will resume remdesivir and add dexamethasone. Continue precautions. Encourage IS and acapella. Palliative care is consulted. (3) Atrial fibrillation with rapid ventricular response: Status: Acute Assessment and plan: In setting of pneumonia, hypoxia, acute PE, probably still active COVID-19, persistent fever. I started a low dose of metoprolol. We need to be careful with this because I do no know his cardiac function after the PE and beta blockade might suppress his cardiac output. Address hypoxia - discussed with RT - starting continuous pulse ox. Increase tylenol. Start dexamethasone and remdesivir. Obtain an echocardiogram. (4) Hospital acquired PNA: Status: Acute Assessment and plan: As above (5) Pulmonary embolism associated with COVID-19: Status: Acute Assessment and plan: Continue apixaban Obtain an echocardiogram and venous dopplers of BLEs. Continue to monitor on tele. (6) Acute respiratory failure with hypoxia: Status: Acute Assessment and plan: Multifactorial, due to COVID-19, acute PE, HCAP. O2 requirement is worse. Encourage IS and acapella. As above. (7) Dementia: Assessment and plan: Behaviors controlled. Continue donepezil and namenda. There probably is a component of encephalopathy due to COVID-19, PNA, fever. Qualifiers: Dementia type: other frontotemporal dementia Dementia severity: moderate Dementia behavioral or psychological symptom: with other behavioral disturbance Qualified Code(s): G31.09 - Other frontotemporal neurocognitive disorder; F02.B18 - Dementia in other diseases classified elsewhere, moderate, with other behavioral disturbance (8) Seizure: Assessment and plan: Continue lacosamide, depakote ER (9) HTN (hypertension): Assessment and plan: Not on any medications at this time. Being initiated on a beta turner - will crystal BPs on this therapy. (10) CAD (coronary artery disease): Assessment and plan: Clopidogrel on hold. I am verifying why. Continue statin, asa. Started on BB. Qualifiers: Coronary Disease-Associated Artery/Lesion type: [place] artery [place] vs. transplanted heart: [place] heart Associated angina: without angina Qualified Code(s): I25.10 - Atherosclerotic heart disease of [place] coronary artery without angina pectoris (11) DVT prophylaxis: Status: Acute Assessment and plan: on therapeutic anticoagulation with apixaban (12) Discharge planning issues: Status: Acute Assessment and plan: Full code Palliative and PT consulted. Subjective Subjective Interval history since last seen: The patient went into rapid Afib this am with HR in 130s. He has been converting in and out of Afib into Sinus tach w/ sinus arhrythmia all morning. Also febrile. The HR went down to 120s after receiving both tylenol and lopressor 2.5 mg IV. The patient does state he is feeling dizzy and is feeling palpitations. Denies CP, feels SOB, denies n/v. on 1L of O2 by NC. Exam Narrative Exam Narrative: General: Pleasant elderly male who is A&Ox1 (does not know he is the hospital), looks more pale, NAD, somnolent HEENT: EOMI, MMM Heart: irregularly irregular rhythm, no m/r/g, tachycardic Lungs: coarse breath sound B, no no wheezing today Abdomen: soft, nontender, nondistended Extremities: no edema BLEs Objective Last Vital Signs Temp 38.0 C H 02/14/23 09:21 Pulse 133 H 02/14/23 08:19 Resp 28 H 02/14/23 07:40 BP 147/70 H 02/14/23 08:19 Pulse Ox 96 02/14/23 07:40 Laboratory Results - last 24 hr 02/13/23 02/13/23 02/13/23 06:30 12:00 12:25 WBC RBC Hgb 12.4 L Hct 36.0 L MCV MCH MCHC RDW Plt Count MPV Immature Gran % Neutrophils % Lymphocytes % Monocytes % Eosinophils % Basophils % Nucleated RBC % Absolute Neutrophils Absolute Lymphocytes Absolute Monocytes Absolute Eosinophils Absolute Basophils Sodium Potassium Chloride Carbon Dioxide Anion Gap BUN Creatinine Est GFR (CKD-EPI 2020) Glucose Calcium Magnesium Troponin I Procalcitonin 1.7 Urine Color Yellow Urine Clarity Clear Urine pH 6.0 Ur Specific [place] >= 1.030 H Urine Protein 100 H Urine Ketones 40 H Urine Blood Large H Urine Nitrite Negative Urine Bilirubin Small H Urine Urobilinogen 0.2 Ur Leukocyte Esterase Negative Urine RBC >50 H Urine WBC 0-2 Ur Epithelial Cells Negative Urine Crystals Negative Urine Bacteria Rare Urine Casts Negative Urine Mucus Trace Ur Culture Indicated? No Urine Glucose Negative Vancomycin Peak Add-On Test Request DONE 02/13/23 02/14/23 02/14/23 23:32 06:10 08:00 WBC 4.77 RBC 4.13 L Hgb 12.8 L Hct 37.5 L MCV 91 MCH 31.0 MCHC 34.1 RDW 14.0 Plt Count 107 L MPV 10.0 Immature Gran % 4.0 Neutrophils % 57.7 Lymphocytes % 9.4 Monocytes % 26.8 Eosinophils % 1.7 Basophils % 0.4 Nucleated RBC % 0.0 Absolute Neutrophils 2.75 Absolute Lymphocytes 0.45 L Absolute Monocytes 1.28 H Absolute Eosinophils 0.08 Absolute Basophils 0.02 Sodium 136 Potassium 3.5 Chloride 101 Carbon Dioxide 25.7 Anion Gap 9.3 BUN 13 Creatinine 1.0 Est GFR (CKD-EPI 2020) 73.30 Glucose 94 Calcium 8.4 L Magnesium 2.1 Troponin I < 50 Procalcitonin Urine Color Urine Clarity Urine pH Ur Specific [place] Urine Protein Urine Ketones Urine Blood Urine Nitrite Urine Bilirubin Urine Urobilinogen Ur Leukocyte Esterase Urine RBC Urine WBC Ur Epithelial Cells Urine Crystals Urine Bacteria Urine Casts Urine Mucus Ur Culture Indicated? Urine Glucose Vancomycin Peak 25.2 Add-On Test Request Time Spent with Patient Time Spent with Patient: 35-49 minutes Time was spent: preparing to see the patient(eg.review tests), obtaining and/or reviewing separately otained hiistory, ordering medications,tests, procedures, referring, communicating with other health career discovery teacher, indepentently interpreting results, counseling the patient and care coordination
[2023-02-14] MEDS: Metoprolol 12.5 MG TAB PO ×2 (10:08→21:05)
[2023-02-14] MEDS: Dexamethasone 4 MG/ML VIAL 6 MG IVP (10:09)
[2023-02-14] MEDS: DOXYCYCLINE 100 MG in Normal Saline 100 ML IVPB ×2 (11:38→22:50)
[2023-02-14 11:40] LABS: Troponin I < 50 ng/L (<or=60)
[2023-02-14] MEDS: REMDESIVIR 200 MG in Normal Saline 250 ML 250 MG IVPB (12:48)
[2023-02-14 13:56] LABS: MRSA PCR Negative (Negative)
--- NOTE | 2023-02-14 16:48 | PDOC.CMPRO ---
Date of service: 02/14/23 Time of Service: 16:48 Care Management Progress Note Progress Note Text Progress Note Text: S/O: Dimitrios is currently on Covid precautions, therefore CM did not meet with him today. Per report, he remains on supplemental O2, 1L by nasal canula. Palliative care met with him today, although he was confused and not able to participate. He is being treated with empiric antibiotics for sepsis, awaiting blood cultures. CM will continue to follow. A: Dimitrios is an 87 year old male admitted to [facility] on 02/11/23 for sepsis, PNA, PE. P: Anticipate Dimitrios will return home once with a resumption of HH services for RN, OT, PT and DESK REPRESENTATIVE when medically cleared. His will drive him home via private vehicle when ready. He will follow up with his PCP and discharge plan of care.
[2023-02-14] MEDS: VANCOMYCIN/WATER (PEG) 1.25 GM/250 ML BAG IVPB (21:05)
[2023-02-14] MEDS: Donepezil 5 MG TAB 10 MG PO (21:05)
[2023-02-14] MEDS: Ascorbic Acid 500 MG TAB PO (21:06)
[2023-02-14] MEDS: Memantine 5 MG TAB PO (21:06)
[2023-02-14] MEDS: Albuterol HFA 8 GM 60 PUFF INH IH (22:27)
[2023-02-14] MEDS: Melatonin 3 MG TAB 15 MG PO (23:06)
[2023-02-15] VITALS (7 sets, daily range): BP systolic 115–134; BP diastolic 59–67; PULSE 50–70; RESP 15–16; TEMP 36–36.7; O2SAT 93–95
[2023-02-15] MEDS: CEFEPIME 2 GM in Normal Saline 100 ML IVPB ×2 (05:50→17:08)
[2023-02-15] MEDS: Ipratropium/Albuterol 4 GM 120 PUFF INH IH ×3 (08:00→21:21)
[2023-02-15] MEDS: Citalopram 10 MG TAB 20 MG PO (08:03)
[2023-02-15] MEDS: Divalproex Sodium 500 MG TAB.ER.24H PO ×2 (08:03→20:41)
[2023-02-15] MEDS: Atorvastatin 40 MG TAB PO (08:03)
[2023-02-15] MEDS: Ascorbic Acid 500 MG TAB PO ×2 (08:03→20:40)
[2023-02-15] MEDS: Apixaban 5 MG TAB 10 MG PO ×2 (08:04→20:40)
[2023-02-15] MEDS: Zinc Sulfate 220 MG TAB PO (08:04)
[2023-02-15] MEDS: Tamsulosin 0.4 MG CAPCR PO (08:04)
[2023-02-15] MEDS: Lacosamide 100 MG TAB PO ×2 (08:04→20:40)
[2023-02-15] MEDS: Metoprolol 12.5 MG TAB PO ×2 (08:04→20:40)
[2023-02-15] MEDS: Pantoprazole 40 MG TABCR PO (08:04)
[2023-02-15] MEDS: Aspirin E.C. 81 MG TABEC PO (08:04)
[2023-02-15] MEDS: Dexamethasone 4 MG TAB 6 MG PO (08:04)
[2023-02-15 08:06] LABS: Absolute Basophil Count 0.01 10^3/uL (0.0-0.2); Absolute Lymphocyte Count 0.43 10^3/uL (1.2-3.4); Absolute Monocyte Count 1.47 10^3/uL (0.1-0.8); Absolute Neutrophil Count 3.37 10^3/uL (1.2-6.7); Basophils % 0.2; HCT 36.5 % (40.0-50.0); HGB 12.6 g/dL (13.5-17.5); Immature Grans % 5.4; Lymphocytes % 7.7; MCH 31.4 pg (27.0-33.0); MCHC 34.5 % (32.0-36.0); MCV 91 fL (80-95); MPV 10.3 fL (8.0-11.0); Monocytes % 26.3; Neutrophils % 60.4; Platelet Count 165 10^3/uL (130-400); RBC 4.01 10^6/uL (4.36-5.78); RDW 13.8 % (11.8-14.1); RDW-SD 46.6 fL; WBC 5.58 10^3/uL (4.4-10.8)
[2023-02-15 08:22] LABS: Diff Comment Diff Reviewed; RBC Morphology Normal
[2023-02-15 08:26] LABS: Anion Gap 7.9 mmol/L (3-11); BUN 20 mg/dL (7-18); CO2 26.1 mmol/L (21.0-32.0); Calcium 8.4 mg/dL (8.5-10.1); Chloride 103 mmol/L (98-107); Glucose 113 mg/dL (74-106); Magnesium 2.1 mg/dL (1.8-2.4); Potassium 3.6 mmol/L (3.5-5.1); Sodium 137 mmol/L (136-145)
--- NOTE | 2023-02-15 09:27 | IN_ITS ---
PT Notes Visit Reasons: Sepsis,PNA,PE Physical Therapy Inpatient Initial Evaluation Date: 02/15/2023 Referring Doctor: Radha Herron MD PT Orders: PT CONSULT: Limited ability Precautions: Fall. Airborne/Droplet precautions in place for COVID-19. Activity as tolerated. Seizure precautions in place. Full code. Patient Profile/Admitting Diagnosis: Dimitrios is an 87-year-old male on palliative with dementia admitted for management of sevre sepsis, generalized weakness, PNA due to COVID-19 i nfection, Hospital-acquired PNA, Acute respiratory failure with hypoxia, dementia, Seizure, HTN, and CAD. PMHX: All Active Problems (Updated 02/11/23 @ 11:50 by Oli Escudero MD) Acute respiratory failure with hypoxia (Acute) Pulmonary embolism associated with COVID-19 (Acute) Hospital acquired PNA (Acute) Pneumonia due to COVID-19 virus (Acute) Severe sepsis (Acute) Pneumonia (Acute) COPD (chronic obstructive pulmonary disease) (Chronic) Breakthrough seizure (Acute) Rib fractures (Acute) Medical History Palliative care patient CAD (coronary artery disease) Seizure disorder H/O non-insulin dependent diabetes mellitus UTI (urinary tract infection) Kidney stones Myocardial infarction Hx of hyperlipidemia HTN (hypertension) Lung cancer Dementia Seizure Surgical History History of tonsillectomy History of coronary artery stent placement Social History/Home Situation: Lives with in a private home with ramp to enter. Did not use an assistive ambulatory device for indoor ambulation . Equipment Owned/DME: FWW, Subjective: Pleasant and cooperative. Denies headache, chest pain, and lightheadedness throughput session. Objective: General Observation: Resting in bed. IV through right UE. Mental Status: Alert and oriented as to person and purpose. Able to pay attention, focus, and respond appropriately. Pain: Denies Vital Signs: oxygen saturation between 90 and 94% on RA throughout session ROM: Right Upper Extremity: Shoulder Flexion WFL. Shoulder abduction WFL. Elbow flexion WFL. Wrist flexion WFL. Functional opening and closing of hand WFL. Left Upper Extremity: Shoulder Flexion WFL. Shoulder abduction WFL. Elbow flexion WFL. Wrist flexion WFL. Functional opening and closing of hand WFL. Right Lower Extremity: Hip flexion WFL. Hip abduction WFL. Knee flexion WFL. Ankle dorsiflexion WFL. Ankle plantarflexion WFL. Left Lower Extremity: Hip flexion WFL. Hip abduction WFL. Knee flexion WFL. Ankle dorsiflexion WFL. Ankle plantarflexion WFL. Strength: Right Upper Extremity: Shoulder flexors 4/5. Shoulder abductors 4/5. Elbow flexors 5/5. Elbow extensors 5/5. Operational Communication Chief strong. Left Upper Extremity: Shoulder flexors 4/5. Shoulder abductors 4/5. Elbow flexors 5/5. Elbow extensors 5/5. Operational Communication Chief strong. Right Lower Extremity: Hip flexors 4-/5. Hip abductors 4-/5. Knee flexors 4/5. Knee extensors 4/5. Ankle dorsiflexors 4-/5. Ankle plantarflexors 4-/5. Left Lower Extremity: Hip flexors 4-/5. Hip abductors 4-/5. Knee flexors 4/5. Knee extensors 4/5. Ankle dorsiflexors 4-/5. Ankle plantarflexors 4-/5. Bed Mobility/Transfers: Minimal cues only for safety and AD management Rolling with stand by assist Supine to sit stand by assist Sit to supine stand by assist Sit to stand stand by assist Stand to sit stand by assist Bed to reclining chair stand by assist Reclining chair to bed stand by assist Gait: Tolerated in room ambulation of about 50 feet + 15 feet with FWW requiring only standby assist with no loss of balance and without report of pain, headache, and lightheadedness throughout session. Oxygen saturation stayed above 90% on RA throughout activity. Minimal shortness of breath resolved with rest with oxygen saturation staying above 90% on RA. Balance: Static Sitting: Normal Dynamic Sitting: Normal Static Standing: Fair Dynamic Standing: Fair Special Tests: Mobility Limitations Standardized Measure [facility] AM-PAC 6 clicks Basic Mobility Inpatient Short Form: Raw Score: 23 CMS Score: 11% deficit Informed Consent/Education: Patient was instructed in purpose of PT consult and plan of care. Agreeable to proceed with established PT POC to achieve personal goals. Assessment: Patient presents with clinical signs and symptoms consistent with current/admitting diagnoses that have resulted to mobility limitations, gait instability, generalized weakness, and overall ADL decline as demonstrated by the following impairment level findings: 1. Mild impaired activity tolerance 2. Minimal shortness of breath Impairments are contributing to the following functional limitations: 1. Increased completion time for mobility ADL performance Patient is assessed as a 65299 complexity based on the following: History: 87-year-old male with past medical history as indicated above Examination: Demonstrable impairment in strength, balance, and mobility level with underlying impairments and functional limitations as exhibited above as well as deficit score of 11% utilizing the [facility] Mobility Inpatient Short Form Presentation: Evolving Decision Makin moderate complexity Goals: Goals X1 week 1. Supine-Sit independent 2. Sit-Supine independent 3. Sit-Stand independent 4. Stand-Sit independent with no AD 5. Bed-Chair independent with no AD 6. Chair-Bed independent with no AD 7. Independent gait on level surface with use of no AD for at least 150 feet without report of pain nor dyspnea 8. Good static and dynamic standing balance/tolerance Plan of Care/Treatment Plan: 1 painx/day, 7 days/week x 1 week. Plan of care has been reviewed with the RN MEDICARE providing the service under Physical Therapy direction. Initiate Physical Therapy intervention for pain management as needed, strengthening, bed mobility, transfers, gait, stairs, balance training, and use of assistive device. DISCHARGE RECOMMENDATIONS: [] Home with no services [] [X] Home with services. Patient will benefit from home health PT services in order to progress mobility level using no assistive ambulatory device, assess home safety, identify additional equipment needs, and establish a functional maintenance program that will increase ability of patient to remain at home. [] Home with outpatient PT [] [] SNF for continued rehabilitation [] [] Government Contracts Manager Care [] [] SNF versus LTC based on ability to participate and progress [] TREATMENT CODE/TIME: 33471 x 20 minutes for 1 unit, 10231 x 13 minutes for 1 unit beginning at 9:27 AM. Thank you for the opportunity to participate in the care of this patient. Marly Esposito PT, DPT, CLT [facility] [place], [place]
[2023-02-15 10:03] LABS: Vitamin D 25 Total 39.3 ng/mL (30-100)
[2023-02-15] MEDS: REMDESIVIR 100 MG in Normal Saline 250 ML 250 MG IVPB (10:03)
[2023-02-15] MEDS: DOXYCYCLINE 100 MG in Normal Saline 100 ML IVPB ×2 (10:03→23:15)
--- NOTE | 2023-02-15 16:12 | PHA.REVIEW2 ---
Pharmacy Admission Review Admission Clinical Review Admission Pharmacy Review: (Updated 02/14/23 @ 10:03 by Radha Herron MD) Atrial fibrillation with rapid ventricular response (Acute) Discharge planning issues (Acute) DVT prophylaxis (Acute) Acute respiratory failure with hypoxia (Acute) Pulmonary embolism associated with COVID-19 (Acute) Hospital acquired PNA (Acute) Pneumonia due to COVID-19 virus (Acute) Severe sepsis (Acute) oxycodone [From Percocet] Adverse Reaction (Unverified 02/11/23 12:40) Penicillins Adverse Reaction (Unverified 02/11/23 12:40) Resuscitation Status Full Code Height 5 ft 6 in Weight 63.503 kg Pharmacy Admission Review Renal Dosing Renal Dosing: BUN 20 mg/dL (7-18) H 02/15/23 07:25 Creatinine 1.0 mg/dL (0.70-1.30) 02/15/23 07:25 Medications needing adjustments: Reviewed (CrCl 47.63 mL/min, BUN increased to 20 today (was 13 yesterday)) Anticoagulation Anticoagulation: Hgb 12.6 g/dL (13.5-17.5) L 02/15/23 07:25 Hct 36.5 % (40.0-50.0) L 02/15/23 07:25 Plt Count 165 10^3/uL (130-400) D 02/15/23 07:25 INR 1.1 (0.9-1.1) 02/11/23 08:41 Creatinine 1.0 mg/dL (0.70-1.30) 02/15/23 07:25 Therapeutic Anticoagulation: Reviewed Medications: Apixaban (10mg BID x 7 days. Will need order for 5mg if still here on 02/19) Relevant Labs Relevant Labs: Sodium 137 mmol/L (136-145) 02/15/23 07:25 Potassium 3.6 mmol/L (3.5-5.1) 02/15/23 07:25 Chloride 103 mmol/L (98-107) 02/15/23 07:25 Magnesium 2.1 mg/dL (1.8-2.4) 02/15/23 07:25 C-Reactive Protein 2.36 mg/dL (0.0-0.3) H 02/11/23 08:41 C-Reactive Protein Cancelled 02/11/23 08:41 Electrolytes, C-Reactive P, ESR: Reviewed Cardiac Review Cardiac Review: Troponin I < 50 ng/L (<or=60) 02/14/23 10:57 NT-Pro-B Natriuret Pep 515 pg/mL (<300) H 02/11/23 08:41 BP, HR, EF%: Reviewed (BP WNL, HR 58) QTc Review QTc: Reviewed (460 02/14/23) IV to PO Switch IV Medications: Reviewed Home Meds Home Med List reviewed: Reviewed Relevent Home Meds Not ordered & why?: No order for clopidogrel Current Meds Current Medication Order Review: Reviewed Pharmacy Antibiotic Review Pharmacy Antibiotic Activity: C/S review and D/C antibiotic Comments: Vancomycin was discontinued, cultures showing no growth at 48 hours. Continuing cefepime and doxycycline. Afebrile since yesterday.
--- NOTE | 2023-02-15 16:51 | PDOC.CMPRO ---
Date of service: 02/15/23 Time of Service: 16:51 Care Management Progress Note Progress Note Text Progress Note Text: S/O: Dimitrios remains on covid precautions, therefore CM did not meet with him. He remains on 1LO2. He was MRSA negative, per report, therefore his vanco was stopped. CM will continue to follow. A: Dimitrios is an 87 year old male admitted to [facility] on 02/11/23 for sepsis, PNA, PE. 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 His will drive him home via private vehicle when ready. He will follow up with his PCP and discharge plan of care.
--- NOTE | 2023-02-15 18:49 | PGE_ITS ---
Date of Service Date of service: 02/15/23 Time of Service: 17:50 Assessment and Plan Assessment and plan (1) Severe sepsis: Status: Acute Assessment and plan: Procalcitonin had actually gone up from 0.8 on 02/11/23 to 1.7 on 02/13/23. Clinically he is much better today. D/c vancomycin as MRSA nares is negative. Continue cefepime + doxycycline (day 3). Blood cultures 02/11 and 02/13 both with NGTD. I suspect the source is a 2ndary bacterial pneumonia. (2) Pneumonia due to COVID-19 virus: Status: Acute Assessment and plan: with hypoxia. Continue remdesivir and dexamethasone. Continue precautions. Encourage IS and acapella. Palliative care is consulted: patient is now DNR/DNI. (3) Atrial fibrillation with rapid ventricular response: Status: Resolved Assessment and plan: In setting of pneumonia, hypoxia, acute PE, probably still active COVID-19, persistent fever. Continue metoprolol. Monitor on tele. Treat COVID-19, PNA, PE. Echo relatively unremarkable. (4) Hospital acquired PNA: Status: Acute Assessment and plan: As above (5) Pulmonary embolism associated with COVID-19: Status: Acute Assessment and plan: Continue apixaban Venous dopplers BLEs negative. Echo w/o evidence of R heart strain. Continue to monitor on tele. (6) Acute respiratory failure with hypoxia: Status: Acute Assessment and plan: Multifactorial, due to COVID-19, acute PE, HCAP. O2 requirement is better Encourage IS and acapella. As above. (7) Dementia: Assessment and plan: Behaviors controlled. Continue donepezil and namenda. There probably is a component of encephalopathy due to COVID-19, PNA, fever. 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 (10) CAD (coronary artery disease): Assessment and plan: I will continue to hold plavix since the patient is now on aspirin and apixaban. Continue statin, asa, BB Qualifiers: Coronary Disease-Associated Artery/Lesion type: [place] artery [place] vs. transplanted heart: [place] heart Associated angina: without angina Qu alified Code(s): I25.10 - Atherosclerotic heart disease of [place] coronary artery without angina pectoris (11) DVT prophylaxis: Status: Acute Assessment and plan: on therapeutic anticoagulation with apixaban (12) Discharge planning issues: Status: Acute Assessment and plan: Full code Palliative and PT consulted. Subjective Subjective Interval history since last seen: Feels better today. Breathing is better and so is the cough, the patient states. He is down to 1L of O2 by NC. Denies dizziness, CP, SOB, n/v, any kind of pain. His is in the room with him during her visit and also remarks on how he is doing better. Palliative care meeting today: the patient chose to be DNR/DNI. He verbalized to me that he feels that God decides what happens in his life, and if God decides to take him, he will go. The did share with me that June 15 will be their 70th wedding anniversary. Exam Narrative Exam Narrative: General: Pleasant elderly male who is A&Ox2, looks significantly better, on 1L of O2 by NC, animated, participates in a conversations, answers questions appropriately. HEENT: EOMI, MMM Heart: mostly regular rhythm, no m/r/g Lungs: expiratory wheezing on the right; clear on the left Abdomen: soft, nontender, nondistended Extremities: no edema BLEs Objective Last Vital Signs Temp 36.2 C L 02/15/23 15:24 Pulse 58 L 02/15/23 15:24 Resp 16 02/15/23 15:24 BP 115/65 02/15/23 15:24 Pulse Ox 93 02/15/23 15:24 Laboratory Results - last 24 hr 02/15/23 07:25 WBC 5.58 RBC 4.01 L Hgb 12.6 L Hct 36.5 L MCV 91 MCH 31.4 MCHC 34.5 RDW 13.8 Plt Count 165 D MPV 10.3 Immature Gran % 5.4 Neutrophils % 60.4 Lymphocytes % 7.7 Monocytes % 26.3 Eosinophils % 0.0 Basophils % 0.2 Nucleated RBC % 0.0 Absolute Neutrophils 3.37 Absolute Lymphocytes 0.43 L Absolute Monocytes 1.47 H Absolute Eosinophils 0.00 Absolute Basophils 0.01 RBC Morphology Normal Sodium 137 Potassium 3.6 Chloride 103 Carbon Dioxide 26.1 Anion Gap 7.9 BUN 20 H Creatinine 1.0 Est GFR (CKD-EPI 2020) 73.30 Glucose 113 H Calcium 8.4 L Magnesium 2.1 25-OH Vitamin D Total 39.3 Objective Narrative Objective Narrative: Echo: Normal left ventricular wall thickness and chamber size. Ejection fraction is 55%. Wall motion is normal. Diastolic function is normal for age Normal right ventricular size and systolic function. Both atria are normal in size Aortic valve is sclerotic and trileaflet with mild regurgitation Normal mitral valve with mild regurgitation Normal tricuspid valve with mild regurgitation. Estimated right ventricular systolic pressure is 32 mmHg Venous dopplers BLEs: Right: Negative for DVT Left: Negative for DVT Time Spent with Patient Time Spent with Patient: 35-49 minutes Time was spent: preparing to see the patient(eg.review tests), obtaining and/or reviewing separately otained hiistory, ordering medications,tests, procedures, referring, communicating with other health health and social care teacher, indepentently interpreting results, counseling the patient and care coordination
[2023-02-15] MEDS: Normal Saline Flush 10 ML SYR IVP (20:41)
[2023-02-15] MEDS: Donepezil 5 MG TAB 10 MG PO (22:57)
[2023-02-15] MEDS: Memantine 5 MG TAB PO (22:58)
[2023-02-16] VITALS (8 sets, daily range): BP systolic 112–128; BP diastolic 58–67; PULSE 52–63; RESP 14–20; TEMP 36–37; O2SAT 92–95
[2023-02-16 07:08] LABS: Abs Immature Grans 0.31 10^3/uL (0.0-0.06); Absolute Basophil Count 0.03 10^3/uL (0.0-0.2); Absolute Lymphocyte Count 0.64 10^3/uL (1.2-3.4); Absolute Monocyte Count 1.19 10^3/uL (0.1-0.8); Absolute Neutrophil Count 4.31 10^3/uL (1.2-6.7); Basophils % 0.5; HCT 35.1 % (40.0-50.0); HGB 11.9 g/dL (13.5-17.5); Immature Grans % 4.8; Lymphocytes % 9.9; MCH 30.7 pg (27.0-33.0); MCHC 33.9 % (32.0-36.0); MCV 91 fL (80-95); MPV 9.7 fL (8.0-11.0); Monocytes % 18.4; Neutrophils % 66.4; Platelet Count 172 10^3/uL (130-400); RBC 3.88 10^6/uL (4.36-5.78); RDW 13.9 % (11.8-14.1); RDW-SD 46.4 fL; WBC 6.48 10^3/uL (4.4-10.8)
[2023-02-16] MEDS: CEFEPIME 2 GM in Normal Saline 100 ML IVPB ×2 (07:08→17:58)
[2023-02-16 07:17] LABS: INR 1.2 (0.9-1.1); Prothrombin Time 12.1 sec (9.1-11.1)
[2023-02-16 07:38] LABS: ALT 25 U/L (16-63); AST 30 U/L (15-37); Albumin 2.4 g/dL (3.4-5.0); Alkaline Phosphatase 55 U/L (46-116); Anion Gap 6.6 mmol/L (3-11); BUN 22 mg/dL (7-18); Bilirubin, Direct 0.2 mg/dL (0.0-0.2); Bilirubin, Total 0.4 mg/dL (0.2-1.0); CO2 28.4 mmol/L (21.0-32.0); Calcium 8.7 mg/dL (8.5-10.1); Chloride 105 mmol/L (98-107); Glucose 112 mg/dL (74-106); Magnesium 2.1 mg/dL (1.8-2.4); Potassium 3.8 mmol/L (3.5-5.1); Sodium 140 mmol/L (136-145); Total Protein 5.7 g/dL (6.4-8.2)
[2023-02-16] MEDS: Citalopram 10 MG TAB 20 MG PO (07:55)
[2023-02-16] MEDS: Aspirin E.C. 81 MG TABEC PO (07:55)
[2023-02-16] MEDS: Tamsulosin 0.4 MG CAPCR PO (07:55)
[2023-02-16] MEDS: Ascorbic Acid 500 MG TAB PO ×2 (07:56→20:28)
[2023-02-16] MEDS: Zinc Sulfate 220 MG TAB PO (07:56)
[2023-02-16] MEDS: Apixaban 5 MG TAB 10 MG PO ×2 (07:56→20:27)
[2023-02-16] MEDS: Atorvastatin 40 MG TAB PO (07:56)
[2023-02-16] MEDS: Divalproex Sodium 500 MG TAB.ER.24H PO ×2 (07:56→20:31)
[2023-02-16] MEDS: Pantoprazole 40 MG TABCR PO (07:56)
[2023-02-16] MEDS: Dexamethasone 4 MG TAB 6 MG PO (07:57)
[2023-02-16] MEDS: Lacosamide 100 MG TAB PO ×2 (07:57→20:31)
[2023-02-16] MEDS: Ipratropium/Albuterol 4 GM 120 PUFF INH IH ×3 (09:04→21:29)
[2023-02-16] MEDS: DOXYCYCLINE 100 MG in Normal Saline 100 ML IVPB ×2 (09:59→22:58)
[2023-02-16] MEDS: REMDESIVIR 100 MG in Normal Saline 250 ML 250 MG IVPB (10:00)
--- NOTE | 2023-02-16 14:36 | PTTR_ITS ---
Date of service: 02/16/23 Time of Service: 14:00 PT Notes Visit Reasons: Sepsis,PNA,PE Inpatient Physical Therapy Treatment Note [facility] Date: 02/16/23 PRECAUTIONS: Fall, standard, activity as tolerated. AIRBORNE / DROPLET PRECAUTIONS FOR COVID-19. SEIZURE PRECAUTIONS. FULL CODE. SUBJECTIVE: Patient reports feeling pretty good overall OBJECTIVE: supine in bed, agreeable to therapy ? PAIN: none reported VITALS: ? Pre-Treatment: BP 138/62, SaO2 95% ? Post-Treatment: BP 160/84, SaO2 94%? BED MOBILITY/TRANSFERS? Rolling L/R: independent Supine-sit: independent ? Sit-supine: independent ? Sit-stand: independent ? Stand-sit: independent ? Bed-Chair: SBA ? Chair-bed: SBA ? Therapeutic Exercises ([id number]): Direct one-on-one instruction in therapeutic exercises to develop strength, endurance, range of motion and flexibility. ? Exercises: * sit to stands 2x5 * standing heel raises x10 * standing hip abduction x10 Ambulation ? Assistive Device: none ? Weight bearing: full Assist: SBA ? Distance:? 200 feet in room, multiple 180 degree turns ? Deviation: LOB x1. No report of headache, dizziness, lightheadedness. Becomes slightly short of breath. ? Provided skilled instruction in proper exercise performance Provided skilled manual cues to facilitate proper muscle recruitment and/or form. ASSESSMENT:? Patient tolerates therapy well, recovering quickly from dyspnea. No report of pain or increased fatigue. PLAN: Continue global strengthening per plan of care until patient is medically cleared for discharge. TREATMENT CODE/TIME: 34 minutes beginning at 14:00
--- NOTE | 2023-02-16 17:00 | PDOC.CMPRO ---
Date of service: 02/16/23 Time of Service: 17:00 Care Management Progress Note Progress Note Text Progress Note Text: S/O: Dimitrios remains on covid precautions, therefore CM did not meet with him. Per report, he is clinically improving, and is on room air. He met with palliative yesterday, and his code status was changed to DNR/DNI. Once he is ready for discharge, he will return home with his , and a resumption of HH services. CM will continue to follow. A: Dimitrios is an 87 year old male admitted to [facility] on 02/11/23 for sepsis, PNA, PE. 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 His will drive him home via private vehicle when ready. He will follow up with his PCP and discharge plan of care.
--- NOTE | 2023-02-16 19:02 | PGE_ITS ---
Date of Service Date of service: 02/16/23 Time of Service: 18:30 Assessment and Plan Assessment and plan (1) Severe sepsis: Status: Acute Assessment and plan: Better. Procalcitonin down to 1.0. Defervesced. Continue cefepime + doxycycline (day 4). No longer on vancomycin. Blood cultures 02/11 and 02/13 both with NGTD. I suspect the source is a 2ndary bacterial pneumonia. (2) Pneumonia due to COVID-19 virus: Status: Acute Assessment and plan: with hypoxia, which has now resolved. Continue remdesivir and dexamethasone. Continue precautions. Encourage IS and acapella. Palliative care is consulted: patient is now DNR/DNI. (3) Atrial fibrillation with rapid ventricular response: Status: Resolved Assessment and plan: In setting of pneumonia, hypoxia, acute PE, probably still active COVID-19. Continue metoprolol. Monitor on tele. Treat COVID-19, PNA, PE. Echo relatively unremarkable. (4) Hospital acquired PNA: Status: Acute Assessment and plan: As above (5) Pulmonary embolism associated with COVID-19: Status: Acute Assessment and plan: Continue apixaban Venous dopplers BLEs negative. Echo w/o evidence of R heart strain. Continue to monitor on tele. (6) Acute respiratory failure with hypoxia: Status: Resolved Assessment and plan: Multifactorial, due to COVID-19, acute PE, HCAP. On RA. Will need exercise oximetry checked prior to d/c. Encourage IS and acapella. As above. (7) Dementia: Assessment and plan: Behaviors controlled. Continue donepezil and namenda. There probably is a component of encephalopathy due to COVID-19, PNA, fever. His mental status appears excellent today. 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 (10) CAD (coronary artery disease): Assessment and plan: I will continue to hold plavix since the patient is now on aspirin and apixaban. Continue statin, asa, BB Qualifiers: Coronary Disease-Associated Artery/Lesion type: [place] artery [place] vs. transplanted heart: [place] heart Associated angina: without angina Qualified Code(s): I25.10 - Atherosclerotic heart disease of [place] coronary artery without angina pectoris (11) DVT prophylaxis: Status: Acute Assessment and plan: on therapeutic anticoagulation with apixaban (12) Discharge planning issues: Status: Acute Assessment and plan: Full code Palliative and PT consulted. Anticipate discharge home in 48-72 hrs. Subjective Subjective Interval history since last seen: Feels better. No dizziness, CP, SOB, n/v. Would like to go home. Exam Narrative Exam Narrative: General: Pleasant elderly male who is A&Ox2, looks better, on RA, animated, participates in a conversations, answers questions appropriately. HEENT: EOMI, MMM Heart: mostly regular rhythm, no m/r/g Lungs: Crackles L base, otherwise CTA. Abdomen: soft, nontender, nondistended Extremities: no edema BLEs Objective Last Vital Signs Temp 36.5 C 02/16/23 15:31 Pulse 55 L 02/16/23 15:31 Resp 20 02/16/23 15:31 BP 123/67 02/16/23 15:31 Pulse Ox 92 02/16/23 15:31 Laboratory Results - last 24 hr 02/16/23 06:20 WBC 6.48 RBC 3.88 L Hgb 11.9 L Hct 35.1 L MCV 91 MCH 30.7 MCHC 33.9 RDW 13.9 Plt Count 172 MPV 9.7 Immature Gran % 4.8 Neutrophils % 66.4 Lymphocytes % 9.9 Monocytes % 18.4 Eosinophils % 0.0 Basophils % 0.5 Nucleated RBC % 0.0 Absolute Neutrophils 4.31 Absolute Lymphocytes 0.64 L Absolute Monocytes 1.19 H Absolute Eosinophils 0.00 Absolute Basophils 0.03 PT 12.1 H INR 1.2 H Sodium 140 Potassium 3.8 Chloride 105 Carbon Dioxide 28.4 Anion Gap 6.6 BUN 22 H Creatinine 1.0 Est GFR (CKD-EPI 2020) 73.30 Glucose 112 H Calcium 8.7 Magnesium 2.1 Total Bilirubin 0.4 Conjugated Bilirubin 0.2 AST 30 ALT 25 Alkaline Phosphatase 55 C-Reactive Protein 8.10 H Total Protein 5.7 L Albumin 2.4 L Procalcitonin 1.0 Time Spent with Patient Time Spent with Patient: 35-49 minutes Time was spent: preparing to see the patient(eg.review tests), obtaining and/or reviewing separately otained hiistory, ordering medications,tests, procedures, referring, communicating with other health youth care specialist, indepentently interpreting results, counseling the patient and care coordination
[2023-02-16] MEDS: Normal Saline Flush 10 ML SYR IV (20:34)
[2023-02-16] MEDS: Memantine 5 MG TAB PO (22:57)
[2023-02-16] MEDS: Donepezil 5 MG TAB 10 MG PO (22:57)
[2023-02-17] VITALS (7 sets, daily range): BP systolic 123–159; BP diastolic 63–73; PULSE 50–98; RESP 15–22; TEMP 36–37.2; O2SAT 91–96
[2023-02-17] MEDS: CEFEPIME 2 GM in Normal Saline 100 ML IVPB ×2 (05:37→17:48)
[2023-02-17 07:01] LABS: Abs Immature Grans 0.22 10^3/uL (0.0-0.06); Absolute Basophil Count 0.02 10^3/uL (0.0-0.2); Absolute Lymphocyte Count 0.73 10^3/uL (1.2-3.4); Absolute Monocyte Count 0.68 10^3/uL (0.1-0.8); Absolute Neutrophil Count 3.08 10^3/uL (1.2-6.7); Basophils % 0.4; HCT 32.7 % (40.0-50.0); HGB 11.2 g/dL (13.5-17.5); Immature Grans % 4.7; Lymphocytes % 15.4; MCH 30.9 pg (27.0-33.0); MCHC 34.3 % (32.0-36.0); MCV 90 fL (80-95); Monocytes % 14.4; Neutrophils % 65.1; Platelet Count 165 10^3/uL (130-400); RBC 3.62 10^6/uL (4.36-5.78); RDW 14.2 % (11.8-14.1); RDW-SD 47.5 fL; WBC 4.73 10^3/uL (4.4-10.8)
[2023-02-17 07:24] LABS: ALT 27 U/L (16-63); AST 28 U/L (15-37); Albumin 2.2 g/dL (3.4-5.0); Alkaline Phosphatase 53 U/L (46-116); Anion Gap 7.6 mmol/L (3-11); BUN 23 mg/dL (7-18); Bilirubin, Direct 0.2 mg/dL (0.0-0.2); Bilirubin, Total 0.5 mg/dL (0.2-1.0); CO2 25.4 mmol/L (21.0-32.0); CREATININE 0.9 mg/dL (0.70-1.30); Chloride 106 mmol/L (98-107); Estimated GFR 83.18 (mL/min/1.73m2); Glucose 116 mg/dL (74-106); Potassium 3.6 mmol/L (3.5-5.1); Sodium 139 mmol/L (136-145); Total Protein 5.2 g/dL (6.4-8.2)
[2023-02-17] MEDS: Ipratropium/Albuterol 4 GM 120 PUFF INH IH ×3 (09:06→21:59)
[2023-02-17] MEDS: Divalproex Sodium 500 MG TAB.ER.24H PO ×2 (09:35→20:06)
[2023-02-17] MEDS: Ascorbic Acid 500 MG TAB PO ×2 (09:36→20:06)
[2023-02-17] MEDS: Citalopram 10 MG TAB 20 MG PO (09:37)
[2023-02-17] MEDS: Zinc Sulfate 220 MG TAB PO (09:37)
[2023-02-17] MEDS: Aspirin E.C. 81 MG TABEC PO (09:37)
[2023-02-17] MEDS: Tamsulosin 0.4 MG CAPCR PO (09:38)
[2023-02-17] MEDS: Lacosamide 100 MG TAB PO ×2 (09:38→20:06)
[2023-02-17] MEDS: Atorvastatin 40 MG TAB PO (09:39)
[2023-02-17] MEDS: Pantoprazole 40 MG TABCR PO (09:39)
[2023-02-17] MEDS: Dexamethasone 4 MG TAB 6 MG PO (09:40)
[2023-02-17] MEDS: Apixaban 5 MG TAB 10 MG PO ×2 (09:40→20:05)
[2023-02-17] MEDS: REMDESIVIR 100 MG in Normal Saline 250 ML 250 MG IVPB (09:41)
[2023-02-17] MEDS: Normal Saline Flush 10 ML SYR IV ×2 (09:42→20:06)
[2023-02-17] MEDS: DOXYCYCLINE 100 MG in Normal Saline 100 ML IVPB ×2 (11:08→22:10)
--- NOTE | 2023-02-17 12:45 | PCPN_ITS ---
Date of service: 02/17/23 Time of Service: 14:30 Assessment and Plan Assessment and plan (1) Acute respiratory failure with hypoxia: Status: Resolved (2) Concern about end of life: Status: Acute Assessment and plan: We had a long discussion about CPR what it entailed and the success rate in general. They were given time to ask questions and to give their thoughts on the subject. Ed and Aletha both agreed that what they wanted was to not be resuscitated if their heart stops or their breathing stops. He did not want a feeding tube but was willing to have IV fluids and antibiotics. We completed a COLST form. [place] [facility], copies for his child and the original to them. Total time spent 47 minutes Subjective Subjective Interval history since last seen: Ed and his Aletha spoke at length about CODE STATUS. They requested that I come in to help them to fill out COLST forms. Exam Narrative Exam Narrative: Ed was alert. He knew where he was. He looked lovingly at his Aletha. His heart was regular. Lungs were distant with some rales. Objective Last Vital Signs Temp 97.3 F L 02/17/23 11:02 Pulse 50 L 02/17/23 11:02 Resp 19 02/17/23 11:02 BP 132/63 02/17/23 11:02 Pulse Ox 94 02/17/23 11:02 Laboratory Results - last 24 hr 02/17/23 06:30 WBC 4.73 RBC 3.62 L Hgb 11.2 L Hct 32.7 L MCV 90 MCH 30.9 MCHC 34.3 RDW 14.2 H Plt Count 165 MPV 10.0 Immature Gran % 4.7 Neutrophils % 65.1 Lymphocytes % 15.4 Monocytes % 14.4 Eosinophils % 0.0 Basophils % 0.4 Nucleated RBC % 0.0 Absolute Neutrophils 3.08 Absolute Lymphocytes 0.73 L Absolute Monocytes 0.68 Absolute Eosinophils 0.00 Absolute Basophils 0.02 Sodium 139 Potassium 3.6 Chloride 106 Carbon Dioxide 25.4 Anion Gap 7.6 BUN 23 H Creatinine 0.9 Est GFR (CKD-EPI 2020) 83.18 Glucose 116 H Calcium 8.0 L Magnesium 2.0 Total Bilirubin 0.5 Conjugated Bilirubin 0.2 AST 28 ALT 27 Alkaline Phosphatase 53 C-Reactive Protein 3.90 H Total Protein 5.2 L Albumin 2.2 L
--- NOTE | 2023-02-17 17:08 | PDOC.CMPRO ---
Date of service: 02/17/23 Time of Service: 17:08 Care Management Progress Note Progress Note Text Progress Note Text: S/O: Dimitrios remains on covid precautions therefore CM did not meet with him in person. CM called his room, and spoke to his , Aletha. Aletha stated that Ed is doing very well, and she feels that he is near his baseline functioning. Per MD, he will likely be ready for discharge tomorrow. CM discussed this with Aletha, and she feels comfortable with that plan. He will have a resumption of HH services; CM informed HH of his potential discharge. CM will continue to follow. A: Dimitrios is an 87 year old male admitted to [facility] on 02/11/23 for sepsis, PNA, PE. 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 His will drive him home via private vehicle when ready. He will follow up with his PCP and discharge plan of care.
[2023-02-17] MEDS: Normal Saline Flush 10 ML SYR IVP (17:47)
--- NOTE | 2023-02-17 19:46 | W.PM.PROGNOT ---
Date of Service Date of service: 02/17/23 Time of Service: 19:46 Assessment and Plan Assessment and plan (1) Severe sepsis: Status: Acute Assessment and plan: I suspect the source is a 2ndary bacterial pneumonia. Better. Recheck procalcitonin in am Defervesced. Continue cefepime + doxycycline (day 5). Finish antibiotics if procalcitonin is low tomorrow. No longer on vancomycin. Blood cultures 02/11 and 02/13 both with NGTD. (2) Pneumonia due to COVID-19 virus: Status: Acute Assessment and plan: with hypoxia, which has now resolved. Continue remdesivir and dexamethasone. Continue precautions. Encourage IS and acapella. Palliative care is consulted: patient is now DNR/DNI. (3) Atrial fibrillation with rapid ventricular response: Status: Resolved Assessment and plan: In setting of pneumonia, hypoxia, acute PE, probably still active COVID-19. Continue metoprolol. Monitor on tele. Treat COVID-19, PNA, PE. Echo relatively unremarkable. (4) Hospital acquired PNA: Status: Acute Assessment and plan: As above (5) Pulmonary embolism associated with COVID-19: Status: Acute Assessment and plan: Continue apixaban Venous dopplers BLEs negative. Echo w/o evidence of R heart strain. Continue to monitor on tele. (6) Acute respiratory failure with hypoxia: Status: Resolved Assessment and plan: Multifactorial, due to COVID-19, acute PE, HCAP. On RA. Passed exercise oximetry on RA today. Encourage IS and acapella. As above. (7) Dementia: Assessment and plan: Behaviors controlled. Continue donepezil and namenda. There probably is a component of encephalopathy due to COVID-19, PNA, fever. His mental status appears excellent today. 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 (10) CAD (coronary artery disease): Assessment and plan: I will continue to hold plavix since the patient is now on aspirin and apixaban. Continue statin, asa, BB Qualifiers: Coronary Disease-Associated Artery/Lesion type: [place] artery [place] vs. transplanted heart: [place] heart Associated angina: without angina Qualified Code(s): I25.10 - Atherosclerotic heart disease of [place] coronary artery without angina pectoris (11) DVT prophylaxis: Status: Acute Assessment and plan: on therapeutic anticoagulation with apixaban (12) Discharge planning issues: Status: Acute Assessment and plan: Full code Palliative and PT consulted. Anticipate discharge home tomorrow. Subjective Subjective Interval history since last seen: Mr Mortensen feels better. He is excited to learn he is going home tomorrow. Denies dizziness, CP, SOB, n/v. Doing well with PT. Exam Narrative Exam Narrative: General: Pleasant elderly male who is A&Ox2, looks even better, on RA, animated, jokes around, answers all questions appropriately HEENT: EOMI, MMM Heart: mostly regular rhythm, no m/r/g Lungs: CTAB Abdomen: soft, nontender, nondistended Extremities: no edema BLEs Objective Last Vital Signs Temp 37.2 C 02/17/23 15:23 Pulse 64 02/17/23 15:23 Resp 19 02/17/23 15:23 BP 123/69 02/17/23 15:23 Pulse Ox 94 02/17/23 15:23 Laboratory Results - last 24 hr 02/17/23 06:30 WBC 4.73 RBC 3.62 L Hgb 11.2 L Hct 32.7 L MCV 90 MCH 30.9 MCHC 34.3 RDW 14.2 H Plt Count 165 MPV 10.0 Immature Gran % 4.7 Neutrophils % 65.1 Lymphocytes % 15.4 Monocytes % 14.4 Eosinophils % 0.0 Basophils % 0.4 Nucleated RBC % 0.0 Absolute Neutrophils 3.08 Absolute Lymphocytes 0.73 L Absolute Monocytes 0.68 Absolute Eosinophils 0.00 Absolute Basophils 0.02 Sodium 139 Potassium 3.6 Chloride 106 Carbon Dioxide 25.4 Anion Gap 7.6 BUN 23 H Creatinine 0.9 Est GFR (CKD-EPI 2020) 83.18 Glucose 116 H Calcium 8.0 L Magnesium 2.0 Total Bilirubin 0.5 Conjugated Bilirubin 0.2 AST 28 ALT 27 Alkaline Phosphatase 53 C-Reactive Protein 3.90 H Total Protein 5.2 L Albumin 2.2 L Time Spent with Patient Time Spent with Patient: 25-34 minutes Time was spent: preparing to see the patient(eg.review tests), obtaining and/or reviewing separately otained hiistory, ordering medications,tests, procedures, referring, communicating with other health out of school hours care worker, indepentently interpreting results, counseling the patient and care coordination
[2023-02-17] MEDS: Donepezil 5 MG TAB 10 MG PO (22:10)
[2023-02-17] MEDS: Memantine 5 MG TAB PO (22:10)
[2023-02-18 00:06] VITALS: BP 160/74; PULSE 63; RESP 18; TEMP 36; O2SAT 95
[2023-02-18 00:18] VITALS: PULSE 54
[2023-02-18 04:10] VITALS: BP 159/84; PULSE 57; RESP 18; TEMP 36.6; O2SAT 96
[2023-02-18] MEDS: CEFEPIME 2 GM in Normal Saline 100 ML IVPB (06:10)
[2023-02-18 06:45] LABS: Abs Immature Grans 0.38 10^3/uL (0.0-0.06); Absolute Basophil Count 0.03 10^3/uL (0.0-0.2); Absolute Monocyte Count 0.72 10^3/uL (0.1-0.8); Absolute Neutrophil Count 3.34 10^3/uL (1.2-6.7); Basophils % 0.6; HCT 33.9 % (40.0-50.0); HGB 11.6 g/dL (13.5-17.5); Immature Grans % 7.1; Lymphocytes % 16.8; MCH 30.6 pg (27.0-33.0); MCHC 34.2 % (32.0-36.0); MCV 89 fL (80-95); MPV 9.8 fL (8.0-11.0); Monocytes % 13.4; Neutrophils % 62.1; Platelet Count 178 10^3/uL (130-400); RBC 3.79 10^6/uL (4.36-5.78); RDW 14.1 % (11.8-14.1); WBC 5.37 10^3/uL (4.4-10.8)
[2023-02-18 07:07] LABS: Anion Gap 6.7 mmol/L (3-11); BUN 19 mg/dL (7-18); C-Reactive Protein 2.44 mg/dL (0.0-0.3); CO2 26.3 mmol/L (21.0-32.0); CREATININE 0.8 mg/dL (0.70-1.30); Calcium 8.1 mg/dL (8.5-10.1); Chloride 105 mmol/L (98-107); Diff Comment Diff Reviewed; Estimated GFR 86.19 (mL/min/1.73m2); Glucose 106 mg/dL (74-106); Magnesium 1.9 mg/dL (1.8-2.4); Potassium 3.6 mmol/L (3.5-5.1); RBC Morphology Normal; Sodium 138 mmol/L (136-145)
[2023-02-18 07:55] LABS: Procalcitonin 0.2 ng/mL
[2023-02-18 08:21] VITALS: BP 163/78; PULSE 70; RESP 16; TEMP 36.1; O2SAT 96
[2023-02-18] MEDS: Normal Saline Flush 10 ML SYR IV (08:24)
[2023-02-18] MEDS: Apixaban 5 MG TAB 10 MG PO (08:25)
[2023-02-18] MEDS: Lacosamide 100 MG TAB PO (08:25)
[2023-02-18] MEDS: Metoprolol 12.5 MG TAB PO (08:25)
[2023-02-18] MEDS: Atorvastatin 40 MG TAB PO (08:26)
[2023-02-18] MEDS: Dexamethasone 4 MG TAB 6 MG PO (08:26)
[2023-02-18] MEDS: Divalproex Sodium 500 MG TAB.ER.24H PO (08:26)
[2023-02-18] MEDS: Zinc Sulfate 220 MG TAB PO (08:27)
[2023-02-18] MEDS: Aspirin E.C. 81 MG TABEC PO (08:27)
[2023-02-18] MEDS: Tamsulosin 0.4 MG CAPCR PO (08:27)
[2023-02-18] MEDS: Pantoprazole 40 MG TABCR PO (08:27)
[2023-02-18] MEDS: Citalopram 10 MG TAB 20 MG PO (08:28)
[2023-02-18] MEDS: Ascorbic Acid 500 MG TAB PO (08:28)
[2023-02-18] MEDS: DOXYCYCLINE 100 MG in Normal Saline 100 ML IVPB (10:04)
[2023-02-18] MEDS: Ipratropium/Albuterol 4 GM 120 PUFF INH IH (10:14)
--- NOTE | 2023-02-18 10:54 | PDOC.CMDIS ---
Date of service: 02/18/23 Time of Service: 10:55 LACE Index Scoring Tool Questions: Length of Stay (in days): 7 - 13 Was the patient admitted via the E.D.?: Yes Comorbidities: Previous M.I., Cerebrovascular Disease, Chronic Pulmonary Disease, Any Tumor and Dementia E.D. 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 CM informed [facility] of his discharge. His will drive him home via private vehicle. He will follow up with his PCP and discharge plan of care. He is happy to be going home. Patient/Family Education Needs: Review discharge instructions and limitations, discussion of self care needs including ask me three and goals of care.
[2023-02-18] MEDS: REMDESIVIR 100 MG in Normal Saline 250 ML 250 MG IVPB (11:23)
--- NOTE | 2023-02-18 12:01 | W.PM.DS.N ---
Date of service: 02/18/23 Time of Service: 12:01 DS: Diagnosis Discharge Diagnosis (1) Severe sepsis: Status: Acute (2) Hospital acquired PNA: Status: Acute (3) Pulmonary embolism associated with COVID-19: Status: Acute (4) Pneumonia due to COVID-19 virus: Status: Acute (5) Acute respiratory failure with hypoxia: Status: Resolved (6) Atrial fibrillation with rapid ventricular response: Status: Resolved (7) Toxic metabolic encephalopathy: Status: Resolved (8) Dementia: (9) Seizure: (10) HTN (hypertension): (11) CAD (coronary artery disease): Discharge Plan Disposition Patient Disposition: Home W/Home Health Services Condition: Good Discharge Details Reason For Visit: Sepsis,PNA,PE Admit Date/Time: 02/11/23 11:43 Admit Provider: Oli Escudero Attending Provider: Oli Escudero Primary Care Provider: Jordon Padron Hospital Course Hospital Course: Mr Mortensen is an 87 year old male with PMHx a COVID-19 diagnosed on 02/05/23, as well as h/o non-oxygen dependent COPD, seizure disorder, HTN, who was a patient on [facility] hospitalist service from 02/11/23 until 02/18/23, presenting with acute hypoxic respiratory failure, desaturating to 89% on RA and requiring 2L of O2 to saturate in the 90s. He did have evidence of both pneumonia and acute PE on his CTA of the chest in the ED. The patient was started on broad spectrum antibiotics but remained febrile after about 48 hrs of therapy, initially suggesting that perhaps his fever was due to the PE itself or a breakthrough of COVID-19 after initial improvement. Antibiotics were discontinued. With this, his clinical picture deteriorated and his procalcitonin increased, warranting us to resume antibiotics. He received vancomycin, doxycycline, cefepime. He defervesced. His procalcitonin normalized. It does appear that he had a true secondary bacterial pneumonia as part of his presentation. As far as his PE, he was treated with anticoagulation with apixaban. Venous dopplers of BLEs were negative. Echocardiogram showed a normal R heart function. As far as COVID-19, the patient was resumed on remdesivir when his fevers persisted. Additionally, the patient did develop a new oxygen requirement, up to 2L of O2 by NC, for which he was initiated on dexamethasone. With this, the oxygen requirement resolved, including on ambulation. Also, on this admission the patient had an episode of rapid atrial fibrillation. He converted to NSR. He was initiated on metoprolol for rate control and is already on apixaban for the acute PE. The patient worked with PT throughout his hospitalization. He is recommended resumption of all of his home health services on discharge. He is stable for discharge home today. He should follow up with his PCP in 1-2 weeks. Home Meds and New Rx's Prescriptions: New acetaminophen 500 mg Tablet 1,000 mg PO Q8H PRN PRNQty: 30 0RF metoprolol succinate [Toprol XL] 25 mg tablet extended release 24 hr 12.5 mg PO DAILY Qty: 15 0RF apixaban 5 mg tablet 5 mg PO BID Qty: 60 0RF Continued citalopram 10 mg tablet 20 mg PO DAILY therapeutic multivitamin Tablet 1 tab PO DAILY donepezil 10 mg tablet 10 mg PO HS melatonin 10 mg Tablet,Disintegrating 15 mg PO HS PRN Rx Instructions: take one and one half tablets = 15mg at bedtime tamsulosin 0.4 mg Capsule 0.4 mg PO DAILY memantine 5 mg tablet 5 mg PO QHS Patient Comments: TAKE 1 TABLET BY MOUTH NIGHTLY ketoconazole 2 % cream 1 applic TOPICAL BID PRN Patient Comments: APPLY CREAM TOPICALLY TO THE RASH ON THE SCALP AND AROUND HAIRLINE TWICE DAILY NEEDED Combivent Respimat 20-100 mcg/actuation Mist 1 puff INHALATION Q6H divalproex [Depakote ER] 500 mg Tablet Extended Release 24 Hr 500 mg PO BID pantoprazole 40 MG tablet,delayed release (DR/EC) 40 mg PO DAILY nitroglycerin [Nitrostat] 0.4 MG tablet, sublingual 0.4 mg Sublingual Q5 MIN PRN X3 PRN albuterol sulfate [Proventil HFA] 6.7 GM HFA aerosol inhaler 2 puff Inhalation Q4H PRN PRN aspirin 81 mg Tablet,Delayed Release (Dr/Ec) 81 mg PO DAILY atorvastatin [Lipitor] 40 mg Tablet 40 mg PO DAILY lacosamide 100 mg tablet 100 mg PO BID Qty: 60 0RF Discontinued clopidogrel [Plavix] 75 MG tablet 75 mg PO DAILY Discharge Instructions Instructions: Metoprolol (By mouth), A-fib (Atrial Fibrillation) (DC), Pulmonary Embolism (DC), Bacterial Pneumonia (DC), COVID-19 (Coronavirus Disease 2019) (DC) Additional Instructions: You can come out of isolation on February 21. Return to the hospital with any fever, bleeding, chest pain, or worsening shortness of breath. Follow up with your PCP in 1-2 weeks. Follow up with palliative care. Care Plan Goals: Home with resumption of home health services Stand Alone Forms: Nursing Discharge Form Referrals: [facility] [Provider Group] (please call Tuesday to make a follow up appointment.) Jordon Padron [Primary Care Provider] - 02/24/23 3:45 pm (Appointment is at 4:00pm) Activity:: Activity as Tolerated Equipment/Supplies:: No Equipment Needed Diet:: As Tolerated Discharge Orders Discharge Orders: Discharge Order (Routine); Ordered 02/18/23 Ordered By: Radha Herron Discharge Data Discharge Date/Time-TO BE ENTERED AT DEPARTURE: 02/18/23 15:05 DS: Summary Time Spent with Patient providing and/or coordinating discharge services: Greater than 30 minutes Status at Discharge Functional status at discharge: uses cane/walker Overall status at discharge: patient is progressing back to baseline Mental Status: mental status grossly normal Speech and Movement: speech and movement normal Mood: congruent mood Affect: normal affect Exam Narrative Exam Narrative: General: Pleasant elderly male who is A&Ox2, looks well, on RA, animated, jokes around, answers all questions appropriately HEENT: EOMI, MMM Heart: mostly regular rhythm, no m/r/g Lungs: CTAB Abdomen: soft, nontender, nondistended Extremities: no edema BLEs Psych Mental Status: mental status grossly normal Speech and Movement: speech and movement normal Mood: congruent mood Affect: normal affect DS: Data Vitals/I&O Vitals and I&O: Vital Signs Temperature 36.1 C L 02/18/23 08:21 Temperature Source Tympanic 02/18/23 08:21 Pulse 70 02/18/23 08:21 Pulse Rhythm Regular 02/18/23 08:39 Pulse 77 02/11/23 11:51 Respiratory Rate 16 02/18/23 08:21 Respiratory Effort Normal, Non-Labored 02/18/23 08:39 Respiratory Depth Normal 02/18/23 08:39 Respiratory Pattern Normal 02/18/23 08:39 Blood Pressure 163/78 H 02/18/23 08:21 Blood Pressure Mean 62 02/11/23 11:46 Pulse Oximetry 96 02/18/23 08:21 Oxygen Delivery Method Room Air 02/18/23 08:21 Oxygen Flow Rate 0 02/18/23 08:21 Pain Level 0 02/18/23 04:10 Comment bp called over radio 02/17/23 07:46 Intake & Output 02/17/23 02/18/23 02/18/23 23:59 11:59 23:59 Intake Total 1150 / 1490 550 / 550 Output Total 600 / 1000 1000 / 1000 Balance 550 / 490 -450 / -450 Intake: IV 550 / 650 300 / 300 Oral 600 / 840 250 / 250 Output: Urine 600 / 1000 1000 / 1000 Other: Urine Color Yellow Yellow Urine Appearance Clear Clear Urine Odor Normal Comment pt was incontinent Voiding Methods Incontinent Urinal Data Completed and Pending Completed studies during hospitalization [Text1]: CXR 02/11/23; 1. Overall there does not appear to be any significant change in appearance of the chest x-ray since 02/06/2023. 2. Persistent mild pulmonary venous congestion and interstitial prominence which may represent edema. Interstitial pneumonitis cannot be excluded. Please correlate clinically. CTA chest 02/11/23: 1. Filling defect seen in a branch of the pulmonary arteries to the left lingula consistent with a pulmonary embolism. 2. Nonspecific ground-glass infiltrates in the right lung. These would be consistent with the patient's history of COVID pneumonia. 3. Right heart enlargement which has been seen on prior examinations including an echo performed 08/31/2022. Echo 02/14/23: Normal left ventricular wall thickness and chamber size. Ejection fraction is 55%. Wall motion is normal. Diastolic function is normal for age Normal right ventricular size and systolic function. Both atria are normal in size Aortic valve is sclerotic and trileaflet with mild regurgitation Normal mitral valve with mild regurgitation Normal tricuspid valve with mild regurgitation. Estimated right ventricular systolic pressure is 32 mmHg US venous 02/14/23: Right: Negative for DVT Left: Negative for DVT Labs on day of discharge: Labs from last 24 hours 02/18/23 05:45 WBC 5.37 RBC 3.79 L Hgb 11.6 L Hct 33.9 L MCV 89 MCH 30.6 MCHC 34.2 RDW 14.1 Plt Count 178 MPV 9.8 Immature Gran % 7.1 Neutrophils % 62.1 Lymphocytes % 16.8 Monocytes % 13.4 Eosinophils % 0.0 Basophils % 0.6 Nucleated RBC % 0.0 Absolute Neutrophils 3.34 Absolute Lymphocytes 0.90 L Absolute Monocytes 0.72 Absolute Eosinophils 0.00 Absolute Basophils 0.03 RBC Morphology Normal Sodium 138 Potassium 3.6 Chloride 105 Carbon Dioxide 26.3 Anion Gap 6.7 BUN 19 H Creatinine 0.8 Est GFR (CKD-EPI 2020) 86.19 Glucose 106 Calcium 8.1 L Magnesium 1.9 C-Reactive Protein 2.44 H Procalcitonin 0.2 Preliminary micro results at discharge 02/13/23 12:25 Blood Culture - Preliminary Blood NO GROWTH 96 HOURS 02/13/23 12:20 Blood Culture - Preliminary Blood NO GROWTH 96 HOURS PFSH All Active Problems (Updated 02/18/23 @ 12:43 by Radha Herron MD) Discharge planning issues (Acute) DVT prophylaxis (Acute) Pulmonary embolism associated with COVID-19 (Acute) Hospital acquired PNA (Acute) Pneumonia due to COVID-19 virus (Acute) Severe sepsis (Acute) Pneumonia (Acute) COPD (chronic obstructive pulmonary disease) (Chronic) Breakthrough seizure (Acute) Rib fractures (Acute) Medical History Palliative care patient CAD (coronary artery disease) Seizure disorder H/O non-insulin dependent diabetes mellitus UTI (urinary tract infection) Kidney stones Myocardial infarction Hx of hyperlipidemia HTN (hypertension) Lung cancer Dementia Seizure Surgical History History of tonsillectomy History of coronary artery stent placement Family History Maternal Grandfather Leukemia Social History Smoking/Tobacco Use Status: Never Smoking risk assessment performed?: Yes Alcohol Intake: never Substance use type: does not use Housing: house Do you feel safe at home: Yes Do you feel safe in your relationship?: Yes Time Spent with Patient Time Spent with Patient: 45-69 minutes Time was spent: preparing to see the patient(eg.review tests), obtaining and/or reviewing separately otained hiistory, ordering medications,tests, procedures, referring, communicating with other health senior care provider, indepentently interpreting results, counseling the patient and care coordination
[2023-02-18 12:13] VITALS: BP 108/63; PULSE 72; RESP 17; TEMP 36.3; O2SAT 98
== END 2023-02-18 15:05 | disposition home health service (06) | DRG 871 ==
LOC: ER 11:44 → MS 12:59
PROVIDERS: Family Medicine; Internal Medicine; Admitting Provider Family Medicine; Emergency Provider Registered Nurse Emergency; PCP Family Medicine; Visit Provider Family Medicine
DX: A41.9 Sepsis, unspecified organism (principal); G92.8 Other toxic encephalopathy; U07.1 COVID-19; J12.82 Pneumonia due to coronavirus disease 2019; J18.9 Pneumonia, unspecified organism; I26.99 Other pulmonary embolism without acute cor pulmonale; J96.01 Acute respiratory failure with hypoxia; F02.B18 Dementia in other diseases classified elsewhere, moderate, with other behavioral disturbance; J44.0 Chronic obstructive pulmonary disease with (acute) lower respiratory infection; C34.90 Malignant neoplasm of unspecified part of unspecified bronchus or lung; R65.20 Severe sepsis without septic shock; Y95 Nosocomial condition; G31.09 Other frontotemporal neurocognitive disorder; I10 Essential (primary) hypertension; I25.10 Atherosclerotic heart disease of native coronary artery without angina pectoris; I48.91 Unspecified atrial fibrillation; E78.5 Hyperlipidemia, unspecified; I25.2 Old myocardial infarction; G40.909 Epilepsy, unspecified, not intractable, without status epilepticus; E11.9 Type 2 diabetes mellitus without complications; Z95.5 Presence of coronary angioplasty implant and graft; Z79.4 Long term (current) use of insulin; Z66 Do not resuscitate
CPT/HCPCS: 00123; 36410; 36415; 51702; 71275; 80048; 80053; 80076; 82306; 82805; 84145; 85027; 87040; 87641; 93005; 93306; 94618; 94640; 96361; 96365; 97110; 97162; 97530; 99291; 36600; 71045; 80202; 81003; 81015; 82728; 83605; 83615; 83735; 83880; 84484; 85014; 85018; 85025; 85379; 85610; 85730; 86140; 87086; 93010; 93970; 94664; 94667; 94668; 94760; 99223; 99232; 99233; 99239; J0248; J1100; J3490; J8540

== ENCOUNTER 2023-02-28 18:18 | Outpatient (REF) | payer MEDICARE, SELFPAY ==
[2023-02-28 17:14] LABS: Bilirubin Negative (Negative); Blood Small (Negative); Clarity Clear (Clear); Glucose Negative (Negative); Ketones Negative (Negative); Leukocyte Esterase Negative (Negative); Nitrite Negative (Negative); Urobilinogen 0.2 mg/dL (Up to 0.2); pH 6.5 (5-8)
[2023-02-28 17:24] LABS: Bacteria Few HPF (Negative); C & S Indicated? Yes; Casts Negative LPF (Negative); Crystals Negative HPF (Negative); Epithelial Cells Negative HPF (Negative); Mucus Negative (Negative)
== END 2023-02-28 18:19 | disposition home or self-care (01) ==
LOC: LBN 18:18
PROVIDERS: PCP Family Medicine; Visit Provider Family Medicine
DX: R35.0 Frequency of micturition (principal)
CPT/HCPCS: 81003; 81015; 87086

== ENCOUNTER 2023-03-26 09:39 | Emergency (ER) | payer MEDICARE, SELFPAY ==
[2023-03-26] VITALS (22 sets, daily range): BP systolic 95–147; BP diastolic 38–77; PULSE 53–69; RESP 12–29; TEMP 36.5; O2SAT 89–97
--- NOTE | 2023-03-26 09:27 | ED.GENADUL_ITS ---
HPI General FORD: 3 Date/Time Provider Initiated Documentation: 03/26/23 09:41. HPI Narrative: MDM This is an overall well-appearing normothermic and not tachycardic 87-year-old male with dementia back pain and fall concerning for thoracic spinal fracture and intracranial hemorrhage. Primary survey intact. Reassuring shock index. On secondary survey patient has low back pain and is confused. Though this does appear his baseline will obtain CT head given fall. Patient also has upper thoracic back pain. He has equal breath sounds so my suspicion is low for pneumothorax. Given history of PE will obtain CT angiogram and CT abdomen pelvis with IV contrast. No pain out of proportion to suggest necrotizing soft tissue infection. Patient is ambulatory without assistance device. If he does not have any acute traumatic processes anticipate he will be appropriate for discharge. No saddle anesthesia to suggest cauda equina syndrome. No loss of bowel or bladder control to suggest spinal epidural abscess. No history of malignancy to suggest increased risk for pathological fracture. No fevers nor IV drug use to suggest increased risk for spinal epidural abscess. No recent spinal manipulation to suggest increased risk for spinal epidural hematoma. No nausea nor vomiting however will obtain basic labs to assess for any acute electrolyte abnormalities which could have precipitated his trauma. Given his dementia and ambulatory status with a cane he is relatively high risk for bleeding and may be a candidate for deprescribing his apixaban based on his elevated HAS-BLED Score of 3 points making him higher risk for bleeding. 10:45 AM Negative troponin. Basic metabolic panel showing no TIGRE. Very mild hyperglycemia but no anion gap and normal bicarbonate??not consistent with DKA. CBC shows mild normocytic anemia improved right to prior. No leukocytosis. No thrombocytopenia. 12:[address] head showing no interval mass effect hemorrhage or hydrocephalus. No significant intercranial changes appreciated. CTA chest showing no acute intrathoracic findings. No acute findings in the abdomen. CT thoracic and lumbar with no acute osseous abnormalities. Will discharge patient with empiric trial of expectant outpatient management with primary care follow-up. 12:33 PM I met with the patient and his . Patient requested local primary care provider. I have asked health community representative Sarya to have the patient seen by local primary care provider as they report that it is too far for them to drive to [facility]. Chronic conditions affecting the care of the patient: Dementia History obtained from an outside historian: N/A External record review: [facility] EMR Medications: Acetaminophen Social determinants of health affecting disposition: N/A Management discussed with: N/A Treatment/interventions considered: N/A Response to therapies provided: N/A HPI This is an 87-year-old male with a history of dementia arrived to the emergency department via ambulance following a fall that he sustained approximately 10 days ago. He reportedly hit his head at that time and has had persistent pain in his upper and lower back. He saw his PCP twice. He has not yet had any imaging at this point in time. Paramedics reported a right-sided wheeze for which patient received albuterol. No ongoing shortness of breath. No recent changes in medications. Patient denies any other complaints. Exam General: Chronically ill-appearing in no acute distress speaking in complete sentences. Ambulates with a cane Head: Normocephalic, atraumatic. Eye: Extraocular eye movements intact. No conjunctival injection. No scleral icterus. Ear, nose, mouth, throat: Grossly normal inspection. Normal voice, handling secretions normally. Neck: Trachea midline. No neck tenderness. Cardiovascular: Well-perfused distal extremities. Respiratory: Nonlabored respiration. Clear lungs bilaterally Gastrointestinal: Nondistended abdomen. Soft nontender. Musculoskeletal: No edema. Moving all 4 extremities spontaneously. No tenderness to bilateral upper and lower extremities. Back: Midline thoracic spinal tenderness. No step-offs. No deformities. Skin: Normal for age and race, grossly normal temperature and turgor. No acute rash. Neurologic: Alert and appropriate, no apparent acute deficits. GCS 14: E4 4, V4, M6. Psychiatric: Mood and manner are appropriate. Grooming and personal hygiene are appropriate. Related Data Home Medications Medication Instructions Recorded Confirmed albuterol sulfate 90 mcg/actuation 2 puff inhalation Q4H PRN PRN 04/27/16 03/26/23 aerosol inhaler (Proventil HFA) nitroglycerin 0.4 mg sublingual 0.4 mg sublingual Q5 MIN PRN X3 PRN 04/27/16 03/26/23 tablet (Nitrostat) pantoprazole 40 mg tablet,delayed 40 mg PO DAILY 04/27/16 03/26/23 release aspirin 81 mg tablet,delayed 81 mg PO DAILY 12/18/19 03/26/23 release citalopram 10 mg tablet 20 mg PO DAILY 02/20/21 03/26/23 therapeutic multivitamin 1 tab PO DAILY 02/20/21 03/26/23 donepezil 10 mg tablet 10 mg PO HS 11/26/21 03/26/23 melatonin 10 mg disintegrating 15 mg PO HS PRN 11/26/21 03/26/23 tablet tamsulosin 0.4 mg capsule 0.4 mg PO DAILY 11/26/21 03/26/23 memantine 5 mg tablet 5 mg PO QHS 06/02/22 03/26/23 lacosamide 100 mg tablet 100 mg PO BID #60 tabs 06/04/22 03/26/23 ipratropium 20 mcg-albuterol 100 1 puff inhalation Q6H 08/29/22 03/26/23 mcg/actuation mist for inhalation (Combivent Respimat) ketoconazole 2 % topical cream 1 applic topical BID PRN 08/29/22 03/26/23 divalproex 500 mg tablet,extended 500 mg PO BID 09/01/22 03/26/23 release 24 hr (Depakote ER) acetaminophen 500 mg tablet 1,000 mg (2 x 500 mg) PO Q8H PRN 02/18/23 03/26/23 PRN #30 tabs apixaban 5 mg tablet 5 mg PO BID #60 tabs 02/18/23 03/26/23 metoprolol succinate 25 mg 12.5 mg (1/2 x 25 mg) PO DAILY #15 02/18/23 03/26/23 tablet,extended release 24 hr tabs (Toprol XL) Previous Rx's Medication Instructions Recorded lacosamide 100 mg tablet 100 mg PO BID #60 tabs 06/04/22 acetaminophen 500 mg tablet 1,000 mg (2 x 500 mg) PO Q8H PRN 02/18/23 PRN #30 tabs apixaban 5 mg tablet 5 mg PO BID #60 tabs 02/18/23 metoprolol succinate 25 mg 12.5 mg (1/2 x 25 mg) PO DAILY #15 02/18/23 tablet,extended release 24 hr tabs (Toprol XL) Allergies Allergy/AdvReac Type Severity Reaction Status Date / Time oxycodone [From Percocet] AdvReac Unverified 03/26/23 09:38 Penicillins AdvReac Unverified 03/26/23 09:38 PFSH All Active Problems (Updated 03/26/23 @ 12:15 by Shun Fay MD) Hx of falling (Acute) Concern about end of life (Acute) Pulmonary embolism associated with COVID-19 (Acute) Hospital acquired PNA (Acute) Pneumonia due to COVID-19 virus (Acute) Severe sepsis (Acute) Pneumonia (Acute) COPD (chronic obstructive pulmonary disease) (Chronic) Breakthrough seizure (Acute) Rib fractures (Acute) Medical History Palliative care patient CAD (coronary artery disease) Seizure disorder H/O non-insulin dependent diabetes mellitus UTI (urinary tract infection) Kidney stones Myocardial infarction Hx of hyperlipidemia HTN (hypertension) Lung cancer Dementia Seizure Surgical History History of tonsillectomy History of coronary artery stent placement Family History Maternal Grandfather Leukemia Social History Smoking/Tobacco Use Status: Former Tobacco Use Smoking risk assessment performed?: Yes Alcohol Intake: never Substance use type: does not use Housing: house Do you feel safe at home: Yes Do you feel safe in your relationship?: Yes Medical Decision Making Quality:SDOH Health Related Social Needs: No Data to Display Discharge Plan Disposition Patient Disposition: Home Discharge Details Clinical Impression: Hx of falling Primary Care Provider: Jordon Padron ED Provider: Shun Fay Home Meds and New Rx's Prescriptions: Continued citalopram 10 mg tablet 20 mg PO DAILY therapeutic multivitamin Tablet 1 tab PO DAILY donepezil 10 mg tablet 10 mg PO HS melatonin 10 mg Tablet,Disintegrating 15 mg PO HS PRN Rx Instructions: take one and one half tablets = 15mg at bedtime tamsulosin 0.4 mg Capsule 0.4 mg PO DAILY memantine 5 mg tablet 5 mg PO QHS Patient Comments: TAKE 1 TABLET BY MOUTH NIGHTLY ketoconazole 2 % cream 1 applic TOPICAL BID PRN Patient Comments: APPLY CREAM TOPICALLY TO THE RASH ON THE SCALP AND AROUND HAIRLINE TWICE DAILY NEEDED Combivent Respimat 20-100 mcg/actuation Mist 1 puff INHALATION Q6H divalproex [Depakote ER] 500 mg Tablet Extended Release 24 Hr 500 mg PO BID pantoprazole 40 MG tablet,delayed release (DR/EC) 40 mg PO DAILY nitroglycerin [Nitrostat] 0.4 MG tablet, sublingual 0.4 mg Sublingual Q5 MIN PRN X3 PRN albuterol sulfate [Proventil HFA] 6.7 GM HFA aerosol inhaler 2 puff Inhalation Q4H PRN PRN aspirin 81 mg Tablet,Delayed Release (Dr/Ec) 81 mg PO DAILY lacosamide 100 mg tablet 100 mg PO BID Qty: 60 0RF acetaminophen 500 mg Tablet 1,000 mg PO Q8H PRN PRNQty: 30 0RF metoprolol succinate [Toprol XL] 25 mg tablet extended release 24 hr 12.5 mg PO DAILY Qty: 15 0RF apixaban 5 mg tablet 5 mg PO BID Qty: 60 0RF Discharge Instructions Additional Instructions: You are seen in the emergency department for your back pain. Your CAT scan showed no sign of any fractures. There is no sign of any bleeding in your head. Please continue taking your regular medications as previously scheduled. Ple ase follow-up with your primary care provider as needed next week.
--- NOTE | 2023-03-26 09:30 | DI.CT_ITS ---
Exam(s) CT HEAD CERVICAL SPINE WO EXAM: CT HEAD CERVICAL SPINE WO CLINICAL HISTORY: History of fall confusion. TECHNIQUE: Imaging Protocol: Axial computed tomography images with coronal and sagittal reformatted images were created and reviewed COMPARISON: CT CT HEAD WO from 02/05/2023 FINDINGS: BRAIN: There are no skull fractures nor fluid in the visualized paranasal sinuses. There is no evidence of intracranial hemorrhage, mass effect, or shift of midline structures. There are no extra-axial fluid collections. The ventricles are not enlarged or shifted and there is no blo od within the ventricular system nor within the basal cisterns. CERVICAL SPINE: There is no evidence of fracture nor significant listhesis. No significant prevertebral soft tissue swelling. There is advanced chronic disc space narrowing at C5-6 and C6-7 levels. There is multilevel facet ar thropathy. There is no significant facet joint malalignment. No significant osseous lesions evident. Infiltrate or scarring in the right lung apex noted. IMPRESSION: No acute intracranial findings on this noninfused CT scan of the brain. No evidence of cervical spine fracture, malalignment, nor acute compromise of the cervical spinal can al. Advanced chronic degenerative changes as described above. RADIATION DOSE DELIVERED: 1,454.03mGy.cm Total DLP DATA REPOSITORY: All CT scans at this facility are submitted to the National Radiology Data Registry (NRDR) Dose Index Registry (DIR) with the [employer] (ACR). RADIATION OPTIMIZATION: All CT scans at this facility use at least one of these dose optimization te chniques: automated exposure control; mA and/or kV adjustment per patient size (includes targeted exa ms where dose is matched to clinical indication); or iterative reconstruction.
--- NOTE | 2023-03-26 09:30 | DI.CT_ITS ---
Exam(s) CT THORACIC LUMBAR SPINE WO EXAM: CT THORACIC LUMBAR SPINE WO CLINICAL HISTORY: Thoracic spinal pain. TECHNIQUE: Imaging Protocol: Axial computed tomography images with coronal and sagittal reformatted images were created and reviewed. CONTRAST MATERIAL: Intravenous: None COMPARISON: CT CT CHEST PE CTA from 02/11/[address] CHEST PE ABD PELVIS W from 03/26/2023 FINDINGS: THORACIC SPINAL COLUMN: There is chronic appearing T5 compression fracture again noted, unchanged fro m 02/11/2023. No acute compromise of the canal. No new fractures. No listhesis. No significant os seous lesions in the thoracic vertebrae. LUMBOSACRAL SPINAL COLUMN: Multilevel chronic degenerative disc disease. No acute fractures. No lis thesis. No pars defects. IMPRESSION: No acute fractures. Chronic T5 compression fracture again noted. RADIATION DOSE DELIVERED: 3,114.68mGy.cm Total DLP DATA REPOSITORY: All CT scans at this facility are submitted to the National Radiology Data Registry (NRDR) Dose Index Registry (DIR) with the [employer] (ACR). RADIATION OPTIMIZATION: All CT scans at this facility use at least one of these dose optimization te chniques: automated exposure control; mA and/or kV adjustment per patient size (includes targeted exa ms where dose is matched to clinical indication); or iterative reconstruction.
--- NOTE | 2023-03-26 09:30 | DI.CT_ITS ---
Exam(s) CT CHEST PE ABD PELVIS W EXAM: CT CHEST PE ABD PELVIS W CLINICAL HISTORY: Shortness of breath history of PE and fall. TECHNIQUE: Imaging Protocol: Axial CT angiography was performed with multi-slice acquisition and m ulti-planar and/or 3D reconstructions. CONTRAST MATERIAL: Intravenous: Omnipaque 350 Contrast volume:100 ml Oral: None COMPARISON: CT CT CHEST PE CTA from 02/11/2023 FINDINGS: CHEST: PULMONARY ARTERIES: There are no intra-arterial filling defects to suggest the presence of acute pulm onary emboli. LUNGS: There is no evidence of pulmonary infarction.Patchy right upper lobe infiltrates noted. No pl eural effusions. No new left lung findings. No pleural effusions. There are no pleural effusions. MEDIASTINUM: There is no hilar nor mediastinal adenopathy. CARDIAC: Heart size is normal. There is no pericardial effusion. There is no significant shift of t he interventricular septum.No evidence of aortic dissection. Diameter of the ascending thoracic aort a is within normal limits. OSSEOUS: No significant osseous lesions.No acute fractures.. ABDOMEN: There is no ascites. LIVER: There is a solitary lesion in the liver in the right hepatic lobe which measures approximately 2.7 x 1.8 cm and has appearance of a probable benign cavernous hemangioma. No other focal hepatic f indings. GALLBLADDER/BILIARY: No obvious gallbladder pathology. Blurred by motion artifact. CBD is not dilat ed. PANCREAS: No obvious masses. Duct not dilated. SPLEEN: Spleen is not enlarged. There are no intrasplenic lesions. Splenic and portal veins are olmedo nt. ADRENALS: There are no significant adrenal masses. KIDNEYS:No cysts evident. No calculi nor hydronephrosis. No solid renal masses. ABDOMINAL AORTA: Calcified but not enlarged. LYMPH NODES: There is no retroperitoneal or para-aortic adenopathy. ABDOMINAL WALL/GI: No evidence of significant anterior abdominal wall hernia. No bowel obstruction. PELVIS: LYMPH NODES: There is no intrapelvic nor inguinal adenopathy. GI: No evidence of appendicitis.No evidence of sigmoid diverticulitis. URINARY BLADDER: There is relatively uniform thickening of the urinary bladder wall. Bladder base is indented by the prostate. Prostate size mildly prominent. REPRODUCTIVE: As above OSSEOUS: No significant osseous lesions. No fractures. Multilevel chronic degenerative disc disease. IMPRESSION: 1. No evidence of acute pulmonary emboli nor pulmonary infarction. No evidence of aortic dissection nor pericardial effusion. 2. Patchy right upper lobe infiltrate. No pleural effusions. No intrathoracic adenopathy evident. 3. 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 There is uniform thickening of the urinary bladder wall. The bladder is not distended. Prostate gland is moderately enlarged. 5. Other findings as above. RADIATION DOSE DELIVERED: 3,114.68mGy.cm Total DLP DATA REPOSITORY: All CT scans at this facility are submitted to the National Radiology Data Registry (NRDR) Dose Index Registry (DIR) with the [employer] (ACR). RADIATION OPTIMIZATION: All CT scans at this facility use at least one of these dose optimization te chniques: automated exposure control; mA and/or kV adjustment per patient size (includes targeted exa ms where dose is matched to clinical indication); or iterative reconstruction.
[2023-03-26 09:54] LABS: Abs Immature Grans 0.07 10^3/uL (0.0-0.06); Absolute Basophil Count 0.02 10^3/uL (0.0-0.2); Absolute Eosinophil Count 0.35 10^3/uL (0.0-0.7); Absolute Lymphocyte Count 1.24 10^3/uL (1.2-3.4); Absolute Monocyte Count 0.95 10^3/uL (0.1-0.8); Absolute Neutrophil Count 1.86 10^3/uL (1.2-6.7); Basophils % 0.4; Eosinophils % 7.8; HCT 40.7 % (40.0-50.0); HGB 13.3 g/dL (13.5-17.5); Immature Grans % 1.6; Lymphocytes % 27.6; MCH 30.9 pg (27.0-33.0); MCHC 32.7 % (32.0-36.0); MCV 94 fL (80-95); MPV 9.4 fL (8.0-11.0); Monocytes % 21.2; Neutrophils % 41.4; Platelet Count 199 10^3/uL (130-400); RBC 4.31 10^6/uL (4.36-5.78); RDW 14.1 % (11.8-14.1); RDW-SD 49.2 fL; WBC 4.49 10^3/uL (4.4-10.8)
[2023-03-26] MEDS: Acetaminophen 500 MG TAB 1000 MG PO (10:00)
[2023-03-26 10:17] LABS: Anion Gap 5.1 mmol/L (3-11); BUN 15 mg/dL (7-18); CO2 31.9 mmol/L (21.0-32.0); Calcium 8.9 mg/dL (8.5-10.1); Chloride 105 mmol/L (98-107); Glucose 108 mg/dL (74-106); Potassium 4.1 mmol/L (3.5-5.1); Sodium 142 mmol/L (136-145); Troponin I < 50 ng/L (< or =60)
[2023-03-26] MEDS: Normal Saline - Diluent 50 ML VIAL IJ (11:11)
[2023-03-26] MEDS: Omnipaque 350 MG/ML 100 ML BTL IJ (11:12)
--- NOTE | 2023-03-26 11:51 | DI.VRAD_ITS ---
PROCEDURE INFORMATION: Exam: CTA Chest With Contrast Exam date and time: 03/26/2023 10:55 AM Age: 87 years old Clinical indication: Other: History of fall confusion TECHNIQUE: Imaging protocol: Computed tomographic angiography of the chest with contrast. Exam focused on the arteries. Contrast material: OMNIPAQUE 350; Contrast volume: 100 ml; Contrast route: INTRAVENOUS (IV); COMPARISON: CT CHEST PE CTA 02/11/2023 10:36 AM FINDINGS: Limitations: Motion artifacts. Pulmonary arteries: No pulmonary emboli. Limited assessment beyond the segmental arteries in the lower lobes due to motion. Aorta: No aortic aneurysm. No aortic dissection. Lungs: Basilar atelectasis. Interstitial thickening. Waxing/waning upper lobe reticulonodular and tree-in-bud opacities. Pleural spaces: No pneumothorax. No pleural effusion. Heart: Unchanged cardiomegaly. No pericardial effusion. Lymph nodes: No enlarged lymph nodes. Diaphragm: Moderate sliding hiatal hernia. Bones/joints: No acute fracture. Unchanged T5 compression fracture. Soft tissues: Unremarkable. IMPRESSION: No acute intrathoracic findings. Waxing and waning upper lobe predominant reticulonodular/tree-in-bud opacities are likely infectious/inflammatory. PROCEDURE INFORMATION: Exam: CT Abdomen And Pelvis With Contrast Exam date and time: 03/26/2023 10:55 AM Clinical indication: Other: History of fall confusion TECHNIQUE: Imaging protocol: Computed tomography of the abdomen and pelvis with contrast. COMPARISON: No relevant prior studies available. FINDINGS: Limitations: Motion artifacts. Liver: Imaged unchanged probable hemangioma in the right hepatic lobe. Gallbladder and bile ducts: Unremarkable as visualized. Pancreas: Unremarkable as visualized. Spleen: No splenomegaly. Adrenal glands: No mass. Kidneys and ureters: Nonobstructing nephroliths. No hydronephrosis. Stomach and bowel: Sliding hiatal hernia. No obstruction. Appendix: No evidence of appendicitis. Intraperitoneal space: No free air. No significant fluid collection. Vasculature: Atherosclerosis. No abdominal aortic aneurysm. Lymph nodes: No enlarged lymph nodes. Urinary bladder: Unremarkable as visualized. Reproductive: Prostatomegaly. Bones/joints: No acute fracture. Soft tissues: Fat containing inguinal hernias. IMPRESSION: No acute findings. Dictated and Authenticated by: Farideh Montana MD. Ordering:ZEINAB Hoffmann MD
--- NOTE | 2023-03-26 11:55 | DI.VRAD_ITS ---
PROCEDURE INFORMATION: Exam: CT Thoracic Spine Without Contrast Exam date and time: 03/26/2023 10:55 AM Age: 87 years old Clinical indication: Injury or trauma; Other: HX pf falls, confused; Other: HX of falls and confusion TECHNIQUE: Imaging protocol: Computed tomography of the thoracic spine without contrast. COMPARISON: CT CHEST PE ABD PELVIS W 03/26/2023 10:55 AM FINDINGS: Bones/joints: Chronic T5 compression fracture. No acute fracture. Normal alignment. No severe spinal canal stenosis or neural foraminal narrowing. Soft tissues: Unremarkable. IMPRESSION: No acute osseous abnormality of the thoracic spine. PROCEDURE INFORMATION: Exam: CT Lumbar Spine Without Contrast Exam date and time: 03/26/2023 10:55 AM Age: 87 years old Clinical indication: Injury or trauma; Other: HX pf falls, confused; Other: HX of falls and confusion TECHNIQUE: Imaging protocol: Computed tomography of the lumbar spine without contrast. COMPARISON: CT CHEST PE ABD PELVIS W 03/26/2023 10:55 AM FINDINGS: Bones/joints: No acute fracture. No traumatic listhesis. Multilevel disc height loss with circumferential disc bulges associated with endplate osteophytes that results in at least moderate canal stenosis at L2-L3 through L5-S1. Multilevel moderate to severe neural foraminal narrowing related to endplate osteophytes and facet arthropathy. Soft tissues: Unremarkable. IMPRESSION: No acute osseous abnormality of the lumbar spine. Dictated and Authenticated by: Farideh Montana MD. Ordering:ZEINAB Hoffmann MD
--- NOTE | 2023-03-26 12:02 | DI.VRAD_ITS ---
PROCEDURE INFORMATION: Exam: CT Head Without Contrast Exam date and time: 03/26/2023 10:49 AM Age: 87 years old Clinical indication: Other: History of fall confusion TECHNIQUE: Imaging protocol: Computed tomography of the head without contrast. Other technique: Axial images are available with sagittal and coronal reconstruction views. Automated dose exposure control is utilized. The DLP is 1454. COMPARISON: 1. CT HEAD WO 02/05/2023 9:[address] HEAD WO 06/02/2022 3:59 PM FINDINGS: Brain: There are moderate cerebral atrophic changes overall.There are central lacunar changes demonstrated.There are chronic periventricular white matter changes present.Partially empty sella variant is demonstrated.No mass effect or layering hemorrhage is appreciated. Colon, white matter differentiation appears maintained. Scattered dural chronic calcifications are appreciated. Cerebral ventricles: No hydrocephalus is appreciated. Paranasal sinuses: There is some slight mucosal thickening and trace fluid of the right maxillary sinus level with otherwise well-aerated appearance. Mastoid air cells: The mastoid air cells appear well-aerated overall. Orbital cavities: Symmetric appearance of the orbital soft tissues is demonstrated. Bones/joints: Osseous alignment is maintained. No interval displaced cranial fracture or dislocation is appreciated.There is slightly decreased bone mineralization overall. Soft tissues: No radiopaque foreign body or subcutaneous emphysema is appreciated. Vasculature: Atherosclerotic vascular changes are demonstrated. Other findings: There is some motion artifact present. There is some minimal chronic left frontal cortical thinning similar overall. No other significant interval changes are appreciated. IMPRESSION: No interval mass effect, layering hemorrhage or hydrocephalus is demonstrated. No significant interval intracranial changes are appreciated. PROCEDURE INFORMATION: Exam: CT Cervical Spine Without Contrast Exam date and time: 03/26/2023 10:49 AM Age: 87 years old Clinical indication: Other: History of fall confusion TECHNIQUE: Imaging protocol: Computed tomography of the cervical spine without contrast. 2177image(s) are provided. COMPARISON: 1. CT CHEST PE CTA 02/11/2023 10:[address] CHEST PE ABD PELVIS W 03/26/2023 10:[address] THORACIC LUMBAR SPINE WO 03/26/2023 10:55 AM 4. CR XR CERVICAL SPINE COMP 4-5V 06/03/2022 10:24 AM FINDINGS: Bones/joints: Osseous alignment is maintained. No interval displaced cervical spine fracture or dislocation is appreciated. There is facet, uncovertebral hypertrophy demonstrated. There is some chronic multilevel degeneration with spurring and disc space narrowing including at the C5-C6 and C6-C7 levels. There is some chronic posterior soft tissue calcification present. There is some slight anterolisthesis similar overall at the C6-C7 level. Discs/Spinal canal/Neural foramina: No hyperdense spinal canal fluid is appreciated. Lungs: The lung apices correspond with the CT chest description same day. Lymph nodes: There are some subcentimeter short axis cervical lymph nodes. Vasculature: Atherosclerotic vascular changes are demonstrated. Soft tissues: No radiopaque foreign body or subcutaneous emphysema is appreciated. No abnormal prevertebral soft tissue thickening is appreciated. No subcutaneous fluid collections are appreciated. Other findings: There is some motion artifact present. IMPRESSION: Osseous alignment is maintained with chronic multilevel degeneration of the cervical spine. No fracture or dislocation is appreciated. Dictated and Authenticated by: Logan Gaston MD. Ordering:ZEINAB Hoffmann MD
--- NOTE | 2023-03-26 12:41 | NUR.NOTE ---
Referral given to Care Managers to help Pt obtain a Primary Care Provider as soon as possible
== END 2023-03-26 12:53 | disposition home or self-care (01) ==
PROVIDERS: Emergency Provider Emergency Medicine; PCP Family Medicine
DX: M54.9 Dorsalgia, unspecified (principal); S09.90XA Unspecified injury of head, initial encounter; W10.8XXA Fall (on) (from) other stairs and steps, initial encounter; Z91.81 History of falling
CPT/HCPCS: 36415; 71275; 74177; 80048; 99285; 70450; 72125; 72128; 72131; 84484; 85025; 99283; J3490

== ENCOUNTER 2023-04-02 16:31 | Inpatient (IN) | payer MEDICARE, SELFPAY ==
[2023-04-02] VITALS (191 sets, daily range): BP systolic 91–200; BP diastolic 52–141; PULSE 59–119; RESP 10–34; TEMP 36.6–36.7; O2SAT 72–100
--- NOTE | 2023-04-02 16:30 | DI.RAD_ITS ---
Exam(s) XR CHEST 2V PA LATERAL EXAM: XR CHEST 2V PA LATERAL CLINICAL HISTORY: not feeling well, poor historian, cough TECHNIQUE: 2D digital imaging was performed. COMPARISON: CR XR PORTABLE CHEST AP from 02/11/[address] CHEST PE ABD PELVIS W from 03/26/[address] THORACIC LUMBAR SPINE WO from 03/26/2023 FINDINGS: HEART: Normal size. Aorta: Not dilated. PULMONARY VASCULATURE: Normal. LUNGS: Fibrotic changes. No superimposed infiltrate or pulmonary edema. PLEURAL SPACE: No pleural effusion or pneumothorax. BONE:Stable moderate T5 compression fracture. Stable mild T6 compression fracture. Soft tissues: Unremarkable. IMPRESSION: Fibrotic changes. No acute abnormality. DATA REPOSITORY: RADIATION DOSE DELIVERED:
--- NOTE | 2023-04-02 16:39 | ED.GENADUL_ITS ---
HPI General Date/Time Provider Initiated Documentation: 04/02/23 16:37 . HPI Narrative: 87 year-old male presents to ED today by EMS with a chief complaint of fatigued, not acting himself per , sleeping a lot, states he doesn't feel well- poor historian. questions possible seizure activity this morning in setting of chronic seizure disorder diagnosis. Quality described as generally unwell, no radiation to abdominal pain, chest pain, slurred speech, vomiting, diarrhea. Severity is described as unable to quantify. Palliating factors include nothing specific. Provoking factors include nothing specific. Patient is anticoagulated on Eliquis. Related Data Home Medications Medication Instructions Recorded Confirmed albuterol sulfate 90 mcg/actuation 2 puff inhalation Q4H PRN PRN 04/27/16 04/02/23 aerosol inhaler (Proventil HFA) nitroglycerin 0.4 mg sublingual 0.4 mg sublingual Q5 MIN PRN X3 PRN 04/27/16 04/02/23 tablet (Nitrostat) pantoprazole 40 mg tablet,delayed 40 mg PO DAILY 04/27/16 04/02/23 release aspirin 81 mg tablet,delayed 81 mg PO DAILY 12/18/19 04/02/23 release citalopram 10 mg tablet 20 mg PO DAILY 02/20/21 04/02/23 therapeutic multivitamin 1 tab PO DAILY 02/20/21 04/02/23 donepezil 10 mg tablet 10 mg PO HS 11/26/21 04/02/23 melatonin 10 mg disintegrating 15 mg PO HS PRN 11/26/21 04/02/23 tablet tamsulosin 0.4 mg capsule 0.4 mg PO DAILY 11/26/21 04/02/23 memantine 5 mg tablet 5 mg PO QHS 06/02/22 04/02/23 lacosamide 100 mg tablet 100 mg PO BID #60 tabs 06/04/22 04/02/23 ipratropium 20 mcg-albuterol 100 1 puff inhalation Q6H 08/29/22 04/02/23 mcg/actuation mist for inhalation (Combivent Respimat) ketoconazole 2 % topical cream 1 applic topical BID PRN 08/29/22 04/02/23 divalproex 500 mg tablet,extended 500 mg PO BID 09/01/22 04/02/23 release 24 hr (Depakote ER) acetaminophen 500 mg tablet 1,000 mg (2 x 500 mg) PO Q8H PRN 02/18/23 04/02/23 PRN #30 tabs apixaban 5 mg tablet 5 mg PO BID #60 tabs 02/18/23 04/02/23 metoprolol succinate 25 mg 12.5 mg (1/2 x 25 mg) PO DAILY #15 02/18/23 04/02/23 tablet,extended release 24 hr tabs (Toprol XL) atorvastatin 40 mg tablet 40 mg PO DAILY 04/02/23 04/02/23 Previous Rx's Medication Instructions Recorded lacosamide 100 mg tablet 100 mg PO BID #60 tabs 06/04/22 acetaminophen 500 mg tablet 1,000 mg (2 x 500 mg) PO Q8H PRN 02/18/23 PRN #30 tabs apixaban 5 mg tablet 5 mg PO BID #60 tabs 02/18/23 metoprolol succinate 25 mg 12.5 mg (1/2 x 25 mg) PO DAILY #15 02/18/23 tablet,extended release 24 hr tabs (Toprol XL) Allergies Allergy/AdvReac Type Severity Reaction Status Date / Time oxycodone [From Percocet] AdvReac Unverified 03/26/23 09:38 Penicillins AdvReac Unverified 03/26/23 09:38 General Stated Complaint: AMS/LOC FORD: 3 Review of Systems All systems reviewed & are unremarkable except as noted in HPI and below Exam Narrative Exam Narrative: GENERAL APPEARANCE: Well-nourished, non-toxic, awake and alert, atraumatic, no acute distress. SKIN: Warm, pink, diaphoretic, intact, without rashes/lesions/ulcerations. HEAD: Normocephalic, atraumatic, normal hair distribution for gender/age. EYES: Pupils PERRLA, EOMs intact without nystagmus, normal conjunctiva, no exudates on lids/lashes. ENT: Nares patent, no circumoral cyanosis, no facial swelling NECK: Supple, trachea midline, painless cervical ROM. LUNGS/CHEST: Lungs CTA bilaterally- no rhonchi/rales/wheezes diffusely, labored respirations, normal A/P diameter, symmetrical expansion, no chest wall deform ity HEART (CV/PV): Regular rate and rhythm without murmur, no peripheral edema, no JVD. ABDOMEN: Soft, non-distended, no guarding, no tenderness. MSK: Normal ROM, no swelling/deformity to bilateral UEs or LEs, moving all extremities without weakness, no cyanosis, spine midline without tenderness, normal curvature. NEURO: Mental Status AAOx4 - alert to person, place, time, events No facial droop, no forehead involvement. Motor: No focal weakness - strength 5/5 in bilateral UEs and LEs, proximal and distal, symmetric. Sensory: sensation intact to light touch globally. Gait NT. PSYCH: euthymic, cooperative, pleasant, appropriate speech Course Vital Signs Vital signs: Vital Signs Temperature 36.6 C 04/02/23 16:35 Pulse 63 04/02/23 16:35 Respiratory Rate 18 04/02/23 16:35 Blood Pressure 141/74 H 04/02/23 16:35 Pulse Oximetry 96 04/02/23 16:35 Temperature 36.6 C 04/02/23 16:35 Temperature Source Oral 04/02/23 16:35 Pulse 63 04/02/23 16:35 Respiratory Rate 18 04/02/23 16:35 Blood Pressure 141/74 H 04/02/23 16:35 Blood Pressure Position Sitting 04/02/23 16:35 Pulse Oximetry 96 04/02/23 16:35 Oxygen Delivery Method Room Air 04/02/23 16:35 Oxygen Flow Rate 0 04/02/23 16:35 Lab/Test Results Lab/Test Results: 04/02/23 16:38 Blood Blood Culture - Pending 04/02/23 16:38 Blood Blood Culture - Pending Medical Decision Making This dictation utilizes [id number] dictation software and may contain unedited grammatical errors. 87 y/o M presents to ED today with a chief complaint of general malaise. Patient is a poor historian, possible seizure activity this morning, sleeping a lot, denying chest pain/abdominal pain/dysuria, shortness of breath. Patients' medical history: Palliative care patient, CAD, seizure disorder, non-insulin- dependent diabetes mellitus, UTI, kidney stones, lung cancer, hypertension, atrial fibrillation, COPD. Family and social history: lives at home with his . Pertinent exam findings / vital signs include peers mildly diaphoretic, mildly labored respirations appears ill overall with stable vitals, benign abdomen, neuro baseline. Differential / pathologies of concern include viral syndrome, bacteremia/sepsis, altered status, debility, PNA, abdominal infection. Diagnostic studies of: -CBC, CMP, Lactate, Procalcitonin, Trop I, BNP, UA, Covid/Flu/RSV PCR, VBG, CXR, CT ABD Pelvis w Contrast, Blood Cx's, Mg++, Lipase. EKG. -CBC leukopenia, in [place] patient -CMP shows no major electrolyte abnormalities, no signs of profound dehydration -UA benign -Lactate mild elev 1.5 -Trop I negative, 3hr trop negative -Mild elevation in BNP, question CHF -Covid/Flu/RSV negative -Lipase mildly elevated -Mg++ WNL -CXR initially shows no findings -CT ABD/Pelvis w Contrast no acute findings, questions UTI but no evidence on UA Interventions of: -Patient was initially given a 500 mL bolus of IV fluids but began to desaturate to 88% on room air and was placed on 2 L O2 by nasal cannula, with his mildly elevated BNP I had suspicion for pulmonary edema and repeated a portable chest x-ray which showed congestive failure, informal bedside POCUS exam shows some B- lines diffusely. Patient given 40 mg IV Lasix, patient is possibly bacteremic or has a viral syndrome and is decompensating due to this, has acute hypoxemic respiratory failure and malaise. ED Course/Assessment/Plan: 87-year-old male with chronic frontotemporal dementia and who has been on palliative care, presents with generalized malaise for couple days, has been sleeping far more than normal and not acting himself per though she state he has undergone significant personality changes with his frontotemporal dementia. He became hypoxic likely due to congestive heart failure which is not in his active problem list and no echo was found with only mildly elevated BNP, due to his general malaise, new onset congestive heart failure and hypoxic respiratory failure had the patient admitted and Dr. Pabon accepted to [facility]. Please note patients' code status has changed multiple times, most recent DNR- had left ED and did not answer provider call at 2122. Findings not consistent with PE, Covid, ACS, Sepsis. Disposition of Congestive Heart Failure, Viral Syndrome, Acute Hypoxemic Respiratory Failure. Patient verbalized understanding of the plan and return to ED criteria and engaged in shared decision making. Medical Records Medical records reviewed: Yes I reviewed the patient's medical records. Imaging Data Radiologic Study: Imaging: X-Ray Radiologist's impression: EXAM: XR CHEST 2V PA LATERAL CLINICAL HISTORY: not feeling well, poor historian, cough TECHNIQUE: 2D digital imaging was performed. COMPARISON: CR XR PORTABLE CHEST AP from 02/11/[address] CHEST PE ABD PELVIS W from 03/26/[address] THORACIC LUMBAR SPINE WO from 03/26/2023 FINDINGS: HEART: Normal size. Aorta: Not dilated. PULMONARY VASCULATURE: Normal. LUNGS: Fibrotic changes. No superimposed infiltrate or pulmonary edema. PLEURAL SPACE: No pleural effusion or pneumothorax. BONE:Stable moderate T5 compression fracture. Stable mild T6 compression fracture. Soft tissues: Unremarkable. IMPRESSION: Fibrotic changes. No acute abnormality. Radiologic Study #2: Imaging: CT Scan Radiologist's impression: Exam: CT Abdomen And Pelvis With Contrast Exam date and time: 04/02/2023 6:16 PM Age: 87 years old Clinical indication: Other: Eval lipase, poor historian, fatigue TECHNIQUE: Imaging protocol: Computed tomography of the abdomen and pelvis with contrast. Contrast material: OMNI; Contrast volume: 100 ml; Contrast route: INTRAVENOUS (IV); COMPARISON: CT CHEST PE ABD PELVIS W 03/26/2023 10:55 AM FINDINGS: Lungs: There are bilateral dependent atelectatic changes. Pleural spaces: Trace right pleural effusion. Diaphragm: There is a sliding hiatal hernia. Liver: Redemonstrated the hemangioma in the segment 5 the liver. No other liver lesions. Gallbladder and bile ducts: Normal. No calcified stones. No ductal dilation. Pancreas: Normal. No ductal dilation. Spleen: Normal. No splenomegaly. Adrenal glands: Normal. No mass. Kidneys and ureters: Normal. No hydronephrosis. Stomach and bowel: Unremarkable. No obstruction. No mucosal thickening. Appendix: No evidence of appendicitis. Intraperitoneal space: Unremarkable. No free air. No significant fluid collection. Vasculature: There are aortoiliac calcifications. Lymph nodes: Unremarkable. No enlarged lymph nodes. Urinary bladder: There is underdistended bladder with mild bladder wall thickening to be correlated with urinalysis to rule out cystitis. Reproductive: There are coarse prostatic calcifications. Bones/joints: There is demineralization of the visualized bones. There is degenerative disease of the symphysis pubis, lumbar spine, sacroiliac joints and hip joints. Soft tissues: Bilateral fat containing inguinal hernias, larger on the right side. IMPRESSION: 1. No acute intra-abdominal process. 2. Underdistended bladder with wall thickening to be correlated with urinalysis to rule out UTI. Dictated and Authenticated by: Ruel Garcia MD. Ordering:ZEYNEP Murrieta MD Radiologic Study #3: Imaging: X-Ray Radiologist's impression: Exam: XR Chest Exam date and time: 04/02/2023 7:40 PM Age: 87 years old Clinical indication: Shortness of breath; Patient HX: New SOB in er. ? Flash pulm edema TECHNIQUE: Imaging protocol: Radiologic exam of the chest. Views: 1 view. COMPARISON: CR XR CHEST 2V PA LATERAL 04/02/2023 4:59 PM FINDINGS: Lungs: Lung volumes are slightly low with patchy diffuse infiltrates moderate diffuse pulmonary vascular prominence throughout both lungs, suggesting congestive changes. No prominent areas of consolidation. Pleural spaces: Unremarkable. No pleural effusion. No pneumothorax. Heart/Mediastinum: Unremarkable. No cardiomegaly. Bones/joints: Mild degenerative changes of the spine and shoulders. IMPRESSION: Moderate changes of congestive failure Dictated and Authenticated by: Aakash Schultz MD. Ordering:ZEYNEP Murrieta MD Lab Data Lab results reviewed: Yes I reviewed the patient's lab results. Labs: 04/02/23 17:21 Blood Blood Culture - Pending 04/02/23 17:28 Blood Blood Culture - Pending Laboratory Tests Range/Units 04/02/23 04/02/23 04/02/23 16:50 17:34 17:45 WBC (4.4-10.8) 10^3/uL 3.61 L RBC (4.36-5.78) 10^6/uL 4.10 L Hgb (13.5-17.5) g/dL 12.8 L Hct (40.0-50.0) % 39.0 L MCV (80-95) fL 95 MCH (27.0-33.0) pg 31.2 MCHC (32.0-36.0) % 32.8 RDW (11.8-14.1) % 14.4 H Plt Count (130-400) 10^3/uL 154 MPV (8.0-11.0) fL 9.5 Immature Gran % 1.1 Neutrophils % 36.0 Lymphocytes % 27.1 Monocytes % 26.9 Eosinophils % 8.3 Basophils % 0.6 Nucleated RBC % (0.0-0.3) % 0.0 Absolute Neutrophils (1.2-6.7) 10^3/uL 1.30 Absolute Lymphocytes (1.2-3.4) 10^3/uL 0.98 L Absolute Monocytes (0.1-0.8) 10^3/uL 0.97 H Absolute Eosinophils (0.0-0.7) 10^3/uL 0.30 Absolute Basophils (0.0-0.2) 10^3/uL 0.02 ESR (0-20) mm/hr < 1 VBG Lactate (0.6-1.4) mmol/L 1.5 H Sodium (136-145) mmol/L 142 Potassium (3.5-5.1) mmol/L 4.4 Chloride (98-107) mmol/L 106 Carbon Dioxide (21.0-32.0) mmol/L 29.9 Anion Gap (3-11) mmol/L 6.1 BUN (7-18) mg/dL 16 Creatinine (0.70-1.30) mg/dL 0.9 Est GFR (CKD-EPI 2020) (mL/min/1.73m2) 83.18 Glucose (74-106) mg/dL 103 Calcium (8.5-10.1) mg/dL 8.7 Magnesium (1.8-2.4) mg/dL 2.1 Total Bilirubin (0.2-1.0) mg/dL 0.5 AST (15-37) U/L 22 ALT (16-63) U/L 18 Alkaline Phosphatase (46-116) U/L 107 Ammonia (11-32) umol/L 27 Creatine Kinase (39-308) U/L 54 Troponin I (< or =60) ng/L < 50 C-Reactive Protein (0.0-0.3) mg/dL 0.21 NT-Pro-B Natriuret Pep (<300) pg/mL 439 H Total Protein (6.4-8.2) g/dL 6.4 Albumin (3.4-5.0) g/dL 3.2 L Lipase (16-77) U/L 79 H Procalcitonin ng/mL < 0.1 Urine Color (Yellow) Yellow Urine Clarity (Clear) Clear Urine pH (5-8) 7.0 Ur Specific [place] (1.005-1.025) 1.020 Urine Protein (Negative) mg/dL Negative Urine Ketones (Negative) mg/dL Negative Urine Blood (Negative) Negative Urine Nitrite (Negative) Negative Urine Bilirubin (Negative) Negative Urine Urobilinogen (Up to 0.2) mg/dL 0.2 Ur Leukocyte Esterase (Negative) Negative Urine Glucose (Negative) mg/dL Negative COVID-19 Source Nasopharynx SARS-CoV-2 (PCR) (Negative) Negative Influenza Type A (PCR) (Negative) Negative Influenza Type B (PCR) (Negative) Negative RSV (PCR) (Negative) Negative Range/Units 04/02/23 19:40 WBC (4.4-10.8) 10^3/uL RBC (4.36-5.78) 10^6/uL Hgb (13.5-17.5) g/dL Hct (40.0-50.0) % MCV (80-95) fL MCH (27.0-33.0) pg MCHC (32.0-36.0) % RDW (11.8-14.1) % Plt Count (130-400) 10^3/uL MPV (8.0-11.0) fL Immature Gran % Neutrophils % Lymphocytes % Monocytes % Eosinophils % Basophils % Nucleated RBC % (0.0-0.3) % Absolute Neutrophils (1.2-6.7) 10^3/uL Absolute Lymphocytes (1.2-3.4) 10^3/uL Absolute Monocytes (0.1-0.8) 10^3/uL Absolute Eosinophils (0.0-0.7) 10^3/uL Absolute Basophils (0.0-0.2) 10^3/uL ESR (0-20) mm/hr VBG Lactate (0.6-1.4) mmol/L Sodium (136-145) mmol/L Potassium (3.5-5.1) mmol/L Chloride (98-107) mmol/L Carbon Dioxide (21.0-32.0) mmol/L Anion Gap (3-11) mmol/L BUN (7-18) mg/dL Creatinine (0.70-1.30) mg/dL Est GFR (CKD-EPI 2020) (mL/min/1.73m2) Glucose (74-106) mg/dL Calcium (8.5-10.1) mg/dL Magnesium (1.8-2.4) mg/dL Total Bilirubin (0.2-1.0) mg/dL AST (15-37) U/L ALT (16-63) U/L Alkaline Phosphatase (46-116) U/L Ammonia (11-32) umol/L Creatine Kinase (39-308) U/L Troponin I (< or =60) ng/L < 50 C-Reactive Protein (0.0-0.3) mg/dL NT-Pro-B Natriuret Pep (<300) pg/mL Total Protein (6.4-8.2) g/dL Albumin (3.4-5.0) g/dL Lipase (16-77) U/L Procalcitonin ng/mL Urine Color (Yellow) Urine Clarity (Clear) Urine pH (5-8) Ur Specific [place] (1.005-1.025) Urine Protein (Negative) mg/dL Urine Ketones (Negative) mg/dL Urine Blood (Negative) Urine Nitrite (Negative) Urine Bilirubin (Negative) Urine Urobilinogen (Up to 0.2) mg/dL Ur Leukocyte Esterase (Negative) Urine Glucose (Negative) mg/dL COVID-19 Source SARS-CoV-2 (PCR) (Negative) Influenza Type A (PCR) (Negative) Influenza Type B (PCR) (Negative) RSV (PCR) (Negative) Quality:SDOH Health Related Social Needs: No Data to Display PFSH All Active Problems (Updated 04/02/23 @ 22:03 by Gibran Pabon) Lactic acidosis (Acute) Acute on chronic respiratory failure with hypoxia and hypercapnia (Acute) Viral syndrome (Acute) Acute hypoxemic respiratory failure (Acute) Congestive heart failure (Acute) Hx of falling (Acute) Concern about end of life (Acute) Pulmonary embolism associated with COVID-19 (Acute) Hospital acquired PNA (Acute) Pneumonia due to COVID-19 virus (Acute) Severe sepsis (Acute) Pneumonia (Acute) COPD (chronic obstructive pulmonary disease) (Chronic) Breakthrough seizure (Acute) Rib fractures (Acute) Medical History Palliative care patient CAD (coronary artery disease) Seizure disorder H/O non-insulin dependent diabetes mellitus UTI (urinary tract infection) Kidney stones Myocardial infarction Hx of hyperlipidemia HTN (hypertension) Lung cancer Dementia Seizure Surgical History History of tonsillectomy History of coronary artery stent placement Family History Maternal Grandfather Leukemia Social History Smoking/Tobacco Use Status: Former Tobacco Use Smoking risk assessment performed?: Yes Alcohol Intake: never Substance use type: does not use Housing: house Do you feel safe at home: Yes Do you feel safe in your relationship?: Yes Discharge Plan Disposition Patient Disposition: Admit to [facility] Discharge Details Clinical Impression: Congestive heart failure, Acute hypoxemic respiratory failure, Viral syndrome Primary Care Provider: Jordon Padron ED Provider: Lit Jackson Home Meds and New Rx's Prescriptions: No Action citalopram 10 mg tablet 20 mg PO DAILY therapeutic multivitamin Tablet 1 tab PO DAILY donepezil 10 mg tablet 10 mg PO HS melatonin 10 mg Tablet,Disintegrating 15 mg PO HS PRN Rx Instructions: take one and one half tablets = 15mg at bedtime tamsulosin 0.4 mg Capsule 0.4 mg PO DAILY memantine 5 mg tablet 5 mg PO QHS Patient Comments: TAKE 1 TABLET BY MOUTH NIGHTLY ketoconazole 2 % cream 1 applic TOPICAL BID PRN Patient Comments: APPLY CREAM TOPICALLY TO THE RASH ON THE SCALP AND AROUND HAIRLINE TWICE DAILY NEEDED Combivent Respimat 20-100 mcg/actuation Mist 1 puff INHALATION Q6H divalproex [Depakote ER] 500 mg Tablet Extended Release 24 Hr 500 mg PO BID pantoprazole 40 MG tablet,delayed release (DR/EC) 40 mg PO DAILY nitroglycerin [Nitrostat] 0.4 MG tablet, sublingual 0.4 mg Sublingual Q5 MIN PRN X3 PRN albuterol sulfate [Proventil HFA] 6.7 GM HFA aerosol inhaler 2 puff Inhalation Q4H PRN PRN aspirin 81 mg Tablet,Delayed Release (Dr/Ec) 81 mg PO DAILY lacosamide 100 mg tablet 100 mg PO BID Qty: 60 0RF acetaminophen 500 mg Tablet 1,000 mg PO Q8H PRN PRNQty: 30 0RF metoprolol succinate [Toprol XL] 25 mg tablet extended release 24 hr 12.5 mg PO DAILY Qty: 15 0RF apixaban 5 mg tablet 5 mg PO BID Qty: 60 0RF atorvastatin 40 mg tablet 40 mg PO DAILY Patient Comments: TAKE 1 TABLET BY MOUTH ONCE DAILY
[2023-04-02 16:59] LABS: Abs Immature Grans 0.04 10^3/uL (0.0-0.06); Absolute Basophil Count 0.02 10^3/uL (0.0-0.2); Absolute Lymphocyte Count 0.98 10^3/uL (1.2-3.4); Absolute Monocyte Count 0.97 10^3/uL (0.1-0.8); Basophils % 0.6; Eosinophils % 8.3; HGB 12.8 g/dL (13.5-17.5); Immature Grans % 1.1; Lymphocytes % 27.1; MCH 31.2 pg (27.0-33.0); MCHC 32.8 % (32.0-36.0); MCV 95 fL (80-95); MPV 9.5 fL (8.0-11.0); Monocytes % 26.9; Platelet Count 154 10^3/uL (130-400); RDW 14.4 % (11.8-14.1); RDW-SD 49.9 fL; WBC 3.61 10^3/uL (4.4-10.8)
[2023-04-02 17:00] LABS: Lactate 1.5 mmol/L (0.6-1.4)
--- NOTE | 2023-04-02 17:08 | DI.VRAD_ITS ---
PROCEDURE INFORMATION: Exam: XR Chest Exam date and time: 04/02/2023 4:59 PM Age: 87 years old Clinical indication: Other: Not feeling well, poor historian, cough TECHNIQUE: Imaging protocol: Radiologic exam of the chest. Views: 2 views. COMPARISON: CT CHEST PE ABD PELVIS W 03/26/2023 10:55 AM FINDINGS: Lungs: Bilateral apical fibrotic changes. No focal consolidation. Mild hyperinflation of the lungs. Pleural spaces: Unremarkable. No pleural effusion. No pneumothorax. Heart/Mediastinum: Unremarkable. No cardiomegaly. Bones/joints: There is advanced degenerative disease of bilateral acromioclavicular joints. Similar severe compression deformity of the T5 vertebral body. IMPRESSION: No acute cardiopulmonary process. Dictated and Authenticated by: Ruel Garcia MD. Ordering:ZEYNEP Murrieta MD
[2023-04-02 17:12] LABS: ESR < 1 mm/hr (0-20)
[2023-04-02 17:18] LABS: Ammonia 27 umol/L (11-32)
[2023-04-02 17:22] LABS: C-Reactive Protein 0.21 mg/dL (0.0-0.3); Creatine Kinase 54 U/L (39-308); Troponin I < 50 ng/L (< or =60)
[2023-04-02 17:25] LABS: ALT 18 U/L (16-63); AST 22 U/L (15-37); Albumin 3.2 g/dL (3.4-5.0); Alkaline Phosphatase 107 U/L (46-116); Anion Gap 6.1 mmol/L (3-11); BUN 16 mg/dL (7-18); Bilirubin, Total 0.5 mg/dL (0.2-1.0); CO2 29.9 mmol/L (21.0-32.0); CREATININE 0.9 mg/dL (0.70-1.30); Calcium 8.7 mg/dL (8.5-10.1); Chloride 106 mmol/L (98-107); Estimated GFR 83.18 (mL/min/1.73m2); Glucose 103 mg/dL (74-106); Lipase 79 U/L (16-77); Magnesium 2.1 mg/dL (1.8-2.4); NT-proBNP 439 pg/mL (<300); Potassium 4.4 mmol/L (3.5-5.1); Sodium 142 mmol/L (136-145); Total Protein 6.4 g/dL (6.4-8.2)
--- NOTE | 2023-04-02 17:30 | DI.CT_ITS ---
Exam(s) CT ABDOMEN PELVIS W EXAM: CT ABDOMEN PELVIS W CLINICAL HISTORY: elevated lipase, poor historian, fatigue. TECHNIQUE: Imaging Protocol: Axial computed tomography images with coronal and sagittal reformatted images were created and reviewed CONTRAST MATERIAL: Intravenous: Omnipaque 350 Contrast volume:100 ml Oral: no COMPARISON: CT CT THORACIC LUMBAR SPINE WO from 03/26/[address] CHEST PE ABD PELVIS W from 03/26/2023 FINDINGS: ABDOMEN and PELVIS: Mildly limited due to motion. Lung Bases: Dependent changes. Trace right pleural effusion. Hiatal hernia. Mild bilateral gynec omastia. Heart is dilated. Liver: Normal density. Hemangioma again noted. Gallbladder and biliary tract: No radiodense calculus or dilation. Pancreas: Normal density. No abnormal calcifications or inflammatory process. No evidence of mass. Spleen: Normal. Kidneys: Normal size, contour and axis. No radiodense stones. No obstructive uropathy. No suspicious masses seen. Adrenal glands: No masses seen. Vasculature: Abdominal aorta non-dilated. Atherosclerotic changes. Soft tissues: Small fatty containing bilateral inguinal hernias. Bladder: Not well distended. Mild wall thickening. No calculi.No focal mass. Bowel: Moderate quantity of stool. No obstruction. No bowel wall thickening. Appendix normal. Peritoneal cavity: No ascites. No focal collection or mesenteric inflammatory response. Bones: Degenerative changes and mild scoliosis. Reproductive organs: Prostate mildly enlarged. Lymph nodes: Unremarkable. IMPRESSION:: The urinary bladder is not well distended. There is a question of mild bladder wall th ickening. Clinical correlation recommended. No evidence of pancreatitis. RADIATION DOSE DELIVERED: Total DLP DATA REPOSITORY: All CT scans at this facility are submitted to the National Radiology Data Registry (NRDR) Dose Index Registry (DIR) with the [employer] (A[employer]). RADIATION OPTIMIZATION: All CT scans at this facility use at least one of these dose optimization te chniques: automated exposure control; mA and/or kV adjustment per patient size (includes targeted exa ms where dose is matched to clinical indication); or iterative reconstruction.
[2023-04-02 17:45] LABS: Procalcitonin < 0.1 ng/mL
[2023-04-02 18:01] LABS: Bilirubin Negative (Negative); Blood Negative (Negative); Clarity Clear (Clear); Glucose Negative (Negative); Ketones Negative (Negative); Leukocyte Esterase Negative (Negative); Nitrite Negative (Negative); Urobilinogen 0.2 mg/dL (Up to 0.2)
[2023-04-02] MEDS: Normal Saline - Diluent 50 ML VIAL IJ (18:16)
[2023-04-02] MEDS: Omnipaque 350 MG/ML 100 ML BTL IJ (18:17)
[2023-04-02 18:18] LABS: COVID-19 PCR Negative (Negative); Influenza A PCR Negative (Negative); Influenza B PCR Negative (Negative); RSV PCR Negative (Negative)
[2023-04-02 18:22] LABS: Source Nasopharynx
[2023-04-02] MEDS: Normal Saline 500 ML IV (18:47)
--- NOTE | 2023-04-02 18:59 | DI.VRAD_ITS ---
PROCEDURE INFORMATION: Exam: CT Abdomen And Pelvis With Contrast Exam date and time: 04/02/2023 6:16 PM Age: 87 years old Clinical indication: Other: Eval lipase, poor historian, fatigue TECHNIQUE: Imaging protocol: Computed tomography of the abdomen and pelvis with contrast. Contrast material: OMNI; Contrast volume: 100 ml; Contrast route: INTRAVENOUS (IV); COMPARISON: CT CHEST PE ABD PELVIS W 03/26/2023 10:55 AM FINDINGS: Lungs: There are bilateral dependent atelectatic changes. Pleural spaces: Trace right pleural effusion. Diaphragm: There is a sliding hiatal hernia. Liver: Redemonstrated the hemangioma in the segment 5 the liver. No other liver lesions. Gallbladder and bile ducts: Normal. No calcified stones. No ductal dilation. Pancreas: Normal. No ductal dilation. Spleen: Normal. No splenomegaly. Adrenal glands: Normal. No mass. Kidneys and ureters: Normal. No hydronephrosis. Stomach and bowel: Unremarkable. No obstruction. No mucosal thickening. Appendix: No evidence of appendicitis. Intraperitoneal space: Unremarkable. No free air. No significant fluid collection. Vasculature: There are aortoiliac calcifications. Lymph nodes: Unremarkable. No enlarged lymph nodes. Urinary bladder: There is underdistended bladder with mild bladder wall thickening to be correlated with urinalysis to rule out cystitis. Reproductive: There are coarse prostatic calcifications. Bones/joints: There is demineralization of the visualized bones. There is degenerative disease of the symphysis pubis, lumbar spine, sacroiliac joints and hip joints. Soft tissues: Bilateral fat containing inguinal hernias, larger on the right side. IMPRESSION: 1. No acute intra-abdominal process. 2. Underdistended bladder with wall thickening to be correlated with urinalysis to rule out UTI. Dictated and Authenticated by: Ruel Garcia MD. Ordering:ZEYNEP Murrieta MD
--- NOTE | 2023-04-02 19:15 | DI.RAD_ITS ---
Exam(s) XR PORTABLE CHEST AP EXAM: XR PORTABLE CHEST AP CLINICAL HISTORY: new SOB in ED, ?flash pulm edema TECHNIQUE: 2D digital imaging was performed. COMPARISON: CR,XR XR CHEST 2V PA LATERAL from 04/02/2023 FINDINGS: Exam limited by under penetration and poor pulmonary inflation. LUNGS: Question of increased interstitial markings compared with the previous exam which could indica te mild CHF. No focal infiltrate.. No pleural abnormality seen. HEART: Normal size for projection. AORTA: Mildly tortuous. BONES: Unremarkable for age. Soft tissues: Unremarkable. IMPRESSION: Limited exam. mild CHF. DATA REPOSITORY: RADIATION DOSE DELIVERED:
[2023-04-02 20:12] LABS: Troponin I < 50 ng/L (< or =60)
--- NOTE | 2023-04-02 20:25 | DI.VRAD_ITS ---
PROCEDURE INFORMATION: Exam: XR Chest Exam date and time: 04/02/2023 7:40 PM Age: 87 years old Clinical indication: Shortness of breath; Patient HX: New SOB in er. ? Flash pulm edema TECHNIQUE: Imaging protocol: Radiologic exam of the chest. Views: 1 view. COMPARISON: CR XR CHEST 2V PA LATERAL 04/02/2023 4:59 PM FINDINGS: Lungs: Lung volumes are slightly low with patchy diffuse infiltrates moderate diffuse pulmonary vascular prominence throughout both lungs, suggesting congestive changes. No prominent areas of consolidation. Pleural spaces: Unremarkable. No pleural effusion. No pneumothorax. Heart/Mediastinum: Unremarkable. No cardiomegaly. Bones/joints: Mild degenerative changes of the spine and shoulders. IMPRESSION: Moderate changes of congestive failure Dictated and Authenticated by: Aakash Schultz MD. Ordering:ZEYNEP Murrieta MD
[2023-04-02] MEDS: Furosemide 40 MG/4 ML VIAL IVP (20:40)
--- NOTE | 2023-04-02 21:15 | RT.EKG_ITS ---
APPROVED REPORT Exam: Resting ECG Reason for Exam: CHF Patient Location: E HR:64 bpm ECG Measurements Heart Rate 64 AXIS RI 68 P 0 QRSd 112 QRS -46 QT 417 T 57 QTc 430 Conclusion Sinus rhythm...normal P axis, V-rate 60- 99 Multiple ventricular premature complexes...V complexes w/ short R-R intervls Incomplete left bundle branch block...QRSd>110mS, terminal axis(-90,-1) Agree with above, LAD, No STEMI, improved from previous
[2023-04-02 21:28] LABS: BE (Venous) 2 mmol/L (-2-3); HCO3 (Venous) 28 mmol/L (23-28); O2 Sat (Venous) 58 %; TCO2 (Venous) 26 mmol/L (24-29); pCO2 (Venous) 58 mmHg (41-51); pH (Venous) 7.29 (7.31-7.41); pO2 (Venous) 36 mmHg
--- NOTE | 2023-04-02 21:34 | W.PM.HP.N ---
Date of service: 04/02/23 Time of Service: 21:35 Assessment and Plan Assessment and plan (1) Acute on chronic respiratory failure with hypoxia and hypercapnia: Start date: 04/02/23 Status: Acute Assessment and plan: This is an 87-year-old gentleman brought to the hospital because of general malaise and fatigue with increased sleeping as well as not feeling well. He is a poor historian and focalizing with his reported symptoms. He was accompanied by his who is very attentive. He was found to be hypoxic with a history of lung cancer operative care and probable chronic respiratory symptoms with COPD on medical therapy. He is on Eliquis and PE is unlikely. CT a of the chest was not performed continue to change patient's improving with supportive care. He had no overt pneumonia or other signs of infection with no antibiotics initiated at this time. He did receive some IV hydration which may have pushed him over into slight CHF. This is being given for his lactic acidosis and probable acute viral infection. Will be encouraged to have oral hydration but IV hydration may be needed if he is not having adequate intake. He is negative for COVID-19 as well as flu or RSV and is stable for supportive care with O2 supplementation and aggressive nebulizer treatments while hospitalized. Long-term he may want remote respiratory treatments at home. He is a DNR/DNI. (2) Lactic acidosis: Start date: 04/02/23 Status: Acute Assessment and plan: Mild with patient to have further IV hydration if needed for now oral hydration because of question of CHF with 500 cc normal saline. Recent echocardiogram did not reveal any ventricular abnormalities but patient does have chronic atrial fibrillation with hepatocyte dysfunction. Conservative treatment is supportive the patient is a DNR/DNI. (3) Congestive heart failure: Start date: 04/02/23 Status: Acute Assessment and plan: Patient BNP was slightly elevated but this has been a problem in the past and most likely associated with his lung disease. Patient had essentially normal echocardiogram February 2023. He was given 1 dose of IV Lasix and this will be held for now with no need for updated echocardiogram if patient stabilizes. Qualifiers: Heart failure chronicity: acute on chronic Heart failure type: diastolic Qualified Code(s): I50.33 - Acute on chronic diastolic (congestive) heart failure (4) Viral syndrome: Start date: 04/02/23 Status: Acute Assessment and plan: Patient has no evidence of bacterial infection at this time and supportive care without antibiotic therapy will be rendered at this time. He is limited by his dementia with poor oral intake which may exacerbate his hydration during this acute problem viral infection. (5) COPD (chronic obstructive pulmonary disease): Status: Chronic Assessment and plan: Patient will be switched to nebulized treatments while hospitalized with some findings over his right lung mathis by physical exam. Consider CT of the chest hypoxemia and focal lung findings persists. 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 They were concerned about possible seizure activity the morning of presentation though this is unlikely being more of the patient's chronic jerkiness of his legs and not tonic-clonic. He is already on medical therapy procedures and recently was prescribed Depakote which has not been started. Further evaluation patient revealed hypoxemia with no dyspnea or chest discomfort. He has had no cough. In the ED he was found to have slightly labored breathing after being given IV fluids for recent poor intake which was stopped when he became more hypoxic with respiratory symptoms and repeat chest x-ray showing possible fluid overload with CHF as well as incomplete POCUS revealing B-lines. Patient was given a one-time dose of Lasix. His IV fluids were initially a bolus of 500 cc normal saline. He continues to have poor intake but will be assessed with lab prior to reinitiation of fluids. His recent echocardiogram did not reveal any decrease left-ventricular ejection fraction but he may have diastolic dysfunction CHF with some element of chronic lung disease and possibly diastolic dysfunction as a cause of increased BNP. Patient does have chronic atrial fibrillation which appears to be stable on Eliquis and medical therapy. He does have a history of lung cancer and is on palliative care. This also may be contributing to his hypoxemia though chest x-ray did not reveal any masses or infiltrates. The patient did have lactic acidosis and no evidence of UTI by urinalysis. He was not initiated on IV antibiotics at this time. Viral screening was negative for COVID-19/flu/RSV. He had no elevation in his WBC and procalcitonin was negative. He may have a viral process causing his acute symptoms and further testing for this was not started at this time. Patient will be given supportive care with follow-up labs with abnormal lipase not explained by imaging and lactic acidosis of including with IV hydration only given further IV hydration appropriate if needed watching closely for exacerbation of CHF. Will not be placed on chronic diuretics at this time with overall failing health status and poor intake with memory issues. He is a DNR/DNI. Review of Systems Narrative: Review of systems otherwise available with patient not able to give further history. See ED review of systems with and. PFSH All Active Problems (Updated 04/02/23 @ 22:03 by Gibran Pabon) Lactic acidosis (Acute) Acute on chronic respiratory failure with hypoxia and hypercapnia (Acute) Viral syndrome (Acute) Acute hypoxemic respiratory failure (Acute) Congestive heart failure (Acute) Hx of falling (Acute) Concern about end of life (Acute) Pulmonary embolism associated with COVID-19 (Acute) Hospital acquired PNA (Acute) Pneumonia due to COVID-19 virus (Acute) Severe sepsis (Acute) Pneumonia (Acute) COPD (chronic obstructive pulmonary disease) (Chronic) Breakthrough seizure (Acute) Rib fractures (Acute) Medical History Palliative care patient CAD (coronary artery disease) Seizure disorder H/O non-insulin dependent diabetes mellitus UTI (urinary tract infection) Kidney stones Myocardial infarction Hx of hyperlipidemia HTN (hypertension) Lung cancer Dementia Seizure Surgical History History of tonsillectomy History of coronary artery stent placement Family History Maternal Grandfather Leukemia Social History Smoking/Tobacco Use Status: Former Tobacco Use Smoking risk assessment performed?: Yes Alcohol Intake: never Substance use type: does not use Housing: house Do you feel safe at home: Yes Do you feel safe in your relationship?: Yes Meds Allergies and Home Medications Allergies Allergy/AdvReac Type Severity Reaction Status Date / Time oxycodone [From Percocet] AdvReac Unverified 03/26/23 09:38 Penicillins AdvReac Unverified 03/26/23 09:38 Home Medications Medication Instructions Recorded Confirmed Type albuterol sulfate 90 mcg/actuation 2 puff inhalation Q4H PRN PRN 04/27/16 04/02/23 History aerosol inhaler (Proventil HFA) nitroglycerin 0.4 mg sublingual 0.4 mg sublingual Q5 MIN PRN X3 PRN 04/27/16 04/02/23 History tablet (Nitrostat) pantoprazole 40 mg tablet,delayed 40 mg PO DAILY 04/27/16 04/02/23 History release aspirin 81 mg tablet,delayed 81 mg PO DAILY 12/18/19 04/02/23 History release citalopram 10 mg tablet 20 mg PO DAILY 02/20/21 04/02/23 History therapeutic multivitamin 1 tab PO DAILY 02/20/21 04/02/23 History donepezil 10 mg tablet 10 mg PO HS 11/26/21 04/02/23 History melatonin 10 mg disintegrating 15 mg PO HS PRN 11/26/21 04/02/23 History tablet tamsulosin 0.4 mg capsule 0.4 mg PO DAILY 11/26/21 04/02/23 History memantine 5 mg tablet 5 mg PO QHS 06/02/22 04/02/23 History lacosamide 100 mg tablet 100 mg PO BID #60 tabs 06/04/22 04/02/23 Rx ipratropium 20 mcg-albuterol 100 1 puff inhalation Q6H 08/29/22 04/02/23 History mcg/actuation mist for inhalation (Combivent Respimat) ketoconazole 2 % topical cream 1 applic topical BID PRN 08/29/22 04/02/23 History divalproex 500 mg tablet,extended 500 mg PO BID 09/01/22 04/02/23 History release 24 hr (Depakote ER) acetaminophen 500 mg tablet 1,000 mg (2 x 500 mg) PO Q8H PRN 02/18/23 04/02/23 Rx PRN #30 tabs apixaban 5 mg tablet 5 mg PO BID #60 tabs 02/18/23 04/02/23 Rx metoprolol succinate 25 mg 12.5 mg (1/2 x 25 mg) PO DAILY #15 02/18/23 04/02/23 Rx tablet,extended release 24 hr tabs (Toprol XL) atorvastatin 40 mg tablet 40 mg PO DAILY 04/02/23 04/02/23 History Exam Narrative Exam Narrative: General: Patient appears appropriate for age, thin but not cachectic. He is hard of hearing and a poor historian. He is alert and oriented at least to place and person. He is in no acute distress. HEENT: Normocephalic, eyes with pupils equal react light symmetrically, extraocular movement intact and sclera anicteric. Oropharynx with dry mucosa. Neck: Supple without JVD. Back: Kyphotic without CVA tenderness. Lungs: Bronchovesicular breath sounds diffusely with inspiratory coarse crackles and rhonchi over the right hemithorax not focalizing. No expiratory wheeze. Fair aeration. Left lung mathis are clear. Heart: Distant heart sounds with regular rate and rhythm. No appreciable murmur or gallop. Abdomen: Scaphoid contour, soft nontender palpation with no palpable hepatosplenomegaly. Extremities: No clubbing, cyanosis or pitting edema. Fair capillary refill. Skin: Normal color, warm and dry. Neuro: Cranial nerves II through XII gross intact, no focal motor deficits or tremor. Psych: Flattened affect with depressed mood and patient hard of hearing becoming slightly agitated during conversation. No abnormal thought processes manifested. Remote memory grossly intact with recent memory less intact Results Imaging Imaging Studies: EXAM: XR CHEST 2V PA LATERAL CLINICAL HISTORY: not feeling well, poor historian, cough TECHNIQUE: 2D digital imaging was performed. COMPARISON: CR XR PORTABLE CHEST AP from 02/11/[address] CHEST PE ABD PELVIS W from 03/26/[address] THORACIC LUMBAR SPINE WO from 03/26/2023 FINDINGS: HEART: Normal size. Aorta: Not dilated. PULMONARY VASCULATURE: Normal. LUNGS: Fibrotic changes. No superimposed infiltrate or pulmonary edema. PLEURAL SPACE: No pleural effusion or pneumothorax. BONE:Stable moderate T5 compression fracture. Stable mild T6 compression fracture. Soft tissues: Unremarkable. IMPRESSION: Fibrotic changes. No acute abnormality. Exam: CT Abdomen And Pelvis With Contrast Exam date and time: 04/02/2023 6:16 PM Age: 87 years old Clinical indication: Other: Eval lipase, poor historian, fatigue TECHNIQUE: Imaging protocol: Computed tomography of the abdomen and pelvis with contrast. Contrast material: OMNI; Contrast volume: 100 ml; Contrast route: INTRAVENOUS (IV); COMPARISON: CT CHEST PE ABD PELVIS W 03/26/2023 10:55 AM FINDINGS: Lungs: There are bilateral dependent atelectatic changes. Pleural spaces: Trace right pleural effusion. Diaphragm: There is a sliding hiatal hernia. Liver: Redemonstrated the hemangioma in the segment 5 the liver. No other liver lesions. Gallbladder and bile ducts: Normal. No calcified stones. No ductal dilation. Pancreas: Normal. No ductal dilation. Spleen: Normal. No splenomegaly. Adrenal glands: Normal. No mass. Kidneys and ureters: Normal. No hydronephrosis. Stomach and bowel: Unremarkable. No obstruction. No mucosal thickening. Appendix: No evidence of appendicitis. Intraperitoneal space: Unremarkable. No free air. No significant fluid collection. Vasculature: There are aortoiliac calcifications. Lymph nodes: Unremarkable. No enlarged lymph nodes. Urinary bladder: There is underdistended bladder with mild bladder wall thickening to be correlated with urinalysis to rule out cystitis. Reproductive: There are coarse prostatic calcifications. Bones/joints: There is demineralization of the visualized bones. There is degenerative disease of the symphysis pubis, lumbar spine, sacroiliac joints and hip joints. Soft tissues: Bilateral fat containing inguinal hernias, larger on the right side. IMPRESSION: 1. No acute intra-abdominal process. 2. Underdistended bladder with wall thickening to be correlated with urinalysis to rule out UTI. Exam: XR Chest Exam date and time: 04/02/2023 7:40 PM Age: 87 years old Clinical indication: Shortness of breath; Patient HX: New SOB in er. ? Flash pulm edema TECHNIQUE: Imaging protocol: Radiologic exam of the chest. Views: 1 view. COMPARISON: CR XR CHEST 2V PA LATERAL 04/02/2023 4:59 PM FINDINGS: Lungs: Lung volumes are slightly low with patchy diffuse infiltrates moderate diffuse pulmonary vascular prominence throughout both lungs, suggesting congestive changes. No prominent areas of consolidation. Pleural spaces: Unremarkable. No pleural effusion. No pneumothorax. Heart/Mediastinum: Unremarkable. No cardiomegaly. Bones/joints: Mild degenerative changes of the spine and shoulders. IMPRESSION: Moderate changes of congestive failure Echocardiogram Date: 02/14/2023 Conclusion: Normal left ventricular wall thickness and chamber size. Ejection fraction is 55%. Wall motion is normal. Diastolic function is normal for age Normal right ventricular size and systolic function. Both atria are normal in size Aortic valve is sclerotic and trileaflet with mild regurgitation Normal mitral valve with mild regurgitation Normal tricuspid valve with mild regurgitation. Estimated right ventricular systolic pressure is 32 mmHg Labs 04/02/23 16:50 04/02/23 16:50 Labs: Laboratory Results - last 24 hr 04/02/23 04/02/23 04/02/23 16:50 17:34 17:45 WBC 3.61 L RBC 4.10 L Hgb 12.8 L Hct 39.0 L MCV 95 MCH 31.2 MCHC 32.8 RDW 14.4 H Plt Count 154 MPV 9.5 Immature Gran % 1.1 Neutrophils % 36.0 Lymphocytes % 27.1 Monocytes % 26.9 Eosinophils % 8.3 Basophils % 0.6 Nucleated RBC % 0.0 Absolute Neutrophils 1.30 Absolute Lymphocytes 0.98 L Absolute Monocytes 0.97 H Absolute Eosinophils 0.30 Absolute Basophils 0.02 ESR < 1 VBG Lactate 1.5 H Sodium 142 Potassium 4.4 Chloride 106 Carbon Dioxide 29.9 Anion Gap 6.1 BUN 16 Creatinine 0.9 Est GFR (CKD-EPI 2020) 83.18 Glucose 103 Calcium 8.7 Magnesium 2.1 Total Bilirubin 0.5 AST 22 ALT 18 Alkaline Phosphatase 107 Ammonia 27 Creatine Kinase 54 Troponin I < 50 C-Reactive Protein 0.21 NT-Pro-B Natriuret Pep 439 H Total Protein 6.4 Albumin 3.2 L Lipase 79 H Procalcitonin < 0.1 Urine Color Yellow Urine Clarity Clear Urine pH 7.0 Ur Specific [place] 1.020 Urine Protein Negative Urine Ketones Negative Urine Blood Negative Urine Nitrite Negative Urine Bilirubin Negative Urine Urobilinogen 0.2 Ur Leukocyte Esterase Negative Urine Glucose Negative COVID-19 Source Nasopharynx SARS-CoV-2 (PCR) Negative Influenza Type A (PCR) Negative Influenza Type B (PCR) Negative RSV (PCR) Negative 04/02/23 19:40 WBC RBC Hgb Hct MCV MCH MCHC RDW Plt Count MPV Immature Gran % Neutrophils % Lymphocytes % Monocytes % Eosinophils % Basophils % Nucleated RBC % Absolute Neutrophils Absolute Lymphocytes Absolute Monocytes Absolute Eosinophils Absolute Basophils ESR VBG Lactate Sodium Potassium Chloride Carbon Dioxide Anion Gap BUN Creatinine Est GFR (CKD-EPI 2020) Glucose Calcium Magnesium Total Bilirubin AST ALT Alkaline Phosphatase Ammonia Creatine Kinase Troponin I < 50 C-Reactive Protein NT-Pro-B Natriuret Pep Total Protein Albumin Lipase Procalcitonin Urine Color Urine Clarity Urine pH Ur Specific [place] Urine Protein Urine Ketones Urine Blood Urine Nitrite Urine Bilirubin Urine Urobilinogen Ur Leukocyte Esterase Urine Glucose COVID-19 Source SARS-CoV-2 (PCR) Influenza Type A (PCR) Influenza Type B (PCR) RSV (PCR) Last Vital Signs Temp 36.7 C 04/02/23 17:16 Pulse 64 04/02/23 21:24 Resp 27 H 04/02/23 21:08 BP 142/85 H 04/02/23 21:24 Pulse Ox 99 04/02/23 21:31 Time Spent Time spent with Patient: >75 minutes Time was spent: preparing to see the patient(eg.review tests), obtaining and/or reviewing separately otained hiistory, ordering medications,tests, procedures, referring, communicating with other health director of primary care, indepentently interpreting results and care coordination
[2023-04-03] VITALS (8 sets, daily range): BP systolic 93–132; BP diastolic 57–70; PULSE 55–80; RESP 2–18; TEMP 36.4–37.1; O2SAT 92–96
--- NOTE | 2023-04-03 00:07 | NUR.NOTE ---
Nursing Note: upon checking admission assessment it was noted a drop in bp from 200/70 to 111/80s, this was noted to nurse who stated patient was up moving around at the time of the elevated bp. checked again and more like second bp at 119/70s
[2023-04-03] MEDS: Memantine 5 MG TAB PO ×2 (00:37→21:06)
[2023-04-03] MEDS: Albuterol/Ipratropium 3 ML UPD VIAL UPD ×5 (00:37→23:41)
[2023-04-03 06:50] LABS: Lactate 1.5 mmol/L (0.6-1.4)
[2023-04-03 06:51] LABS: HCT 37.4 % (40.0-50.0); HGB 12.5 g/dL (13.5-17.5); MCH 31.2 pg (27.0-33.0); MCHC 33.4 % (32.0-36.0); MCV 93 fL (80-95); MPV 9.2 fL (8.0-11.0); Platelet Count 148 10^3/uL (130-400); RBC 4.01 10^6/uL (4.36-5.78); RDW 14.4 % (11.8-14.1); RDW-SD 49.2 fL; WBC 4.34 10^3/uL (4.4-10.8)
--- NOTE | 2023-04-03 07:00 | DI.RAD_ITS ---
Exam(s) XR CHEST 2V PA LATERAL EXAM: XR CHEST 2V PA LATERAL CLINICAL HISTORY: CHF TECHNIQUE: 2D digital imaging was performed. COMPARISON: CR,XR XR PORTABLE CHEST AP from 04/02/2023 FINDINGS: HEART: Normal size. Coronary artery stent. Aorta: Not dilated. PULMONARY VASCULATURE: Normal. LUNGS: Underlying emphysematous and fibrotic changes, otherwise clear. Interval improvement in previ ously noted pulmonary edema. PLEURAL SPACE: No pleural effusion or pneumothorax. BONE:Stable T5 compression fracture. Soft tissues: Unremarkable. IMPRESSION: No acute abnormality. Interval improvement in pulmonary edema. DATA REPOSITORY: RADIATION DOSE DELIVERED:
[2023-04-03 07:17] LABS: ALT 17 U/L (16-63); AST 22 U/L (15-37); Albumin 3.1 g/dL (3.4-5.0); Anion Gap 8.7 mmol/L (3-11); BUN 14 mg/dL (7-18); Bilirubin, Total 0.8 mg/dL (0.2-1.0); CO2 32.3 mmol/L (21.0-32.0); CREATININE 1.2 mg/dL (0.70-1.30); Calcium 8.8 mg/dL (8.5-10.1); Chloride 103 mmol/L (98-107); Estimated GFR 58.89 (mL/min/1.73m2); Glucose 105 mg/dL (74-106); NT-proBNP 695 pg/mL (<300); Potassium 3.9 mmol/L (3.5-5.1); Sodium 144 mmol/L (136-145)
[2023-04-03 07:27] LABS: Alkaline Phosphatase 93 U/L (46-116)
[2023-04-03 08:21] LABS: BE (Venous) 7 mmol/L (-2-3); HCO3 (Venous) 31 mmol/L (23-28); O2 Sat (Venous) 46 %; TCO2 (Venous) 28 mmol/L (24-29); pCO2 (Venous) 45 mmHg (41-51); pH (Venous) 7.44 (7.31-7.41); pO2 (Venous) 26 mmHg
[2023-04-03 08:22] LABS: Lactate 1.8 mmol/L (0.6-1.4)
[2023-04-03 08:56] LABS: D-Dimer 604 ng/mlFEU (<500)
[2023-04-03] MEDS: Pantoprazole 40 MG TABCR PO (09:23)
[2023-04-03] MEDS: Lacosamide 100 MG TAB PO ×2 (09:23→21:05)
[2023-04-03] MEDS: Atorvastatin 40 MG TAB PO (09:23)
[2023-04-03] MEDS: Apixaban 5 MG TAB PO ×2 (09:23→21:04)
[2023-04-03] MEDS: Aspirin E.C. 81 MG TABEC PO (09:23)
[2023-04-03] MEDS: Multivitamin w/Minerals TAB 1 TAB PO (09:23)
[2023-04-03] MEDS: Tamsulosin 0.4 MG CAPCR PO (09:23)
[2023-04-03] MEDS: Citalopram 10 MG TAB 20 MG PO (09:24)
[2023-04-03] MEDS: Metoprolol CR 25 MG TABCR 12.5 MG PO (09:25)
[2023-04-03] MEDS: Normal Saline Flush 10 ML SYR IVP ×2 (09:26→21:05)
--- NOTE | 2023-04-03 10:05 | PT.INIE ---
Date of service: 04/03/23 Time of Service: 10:15 PT Notes Visit Reasons: Acute respiratory failure with hypoxemia and Date: 04/03/23 Referring Doctor: Radha Birch MD PT Orders: PT CONSULT: limited ability Precautions: Standard Patient Profile/Admitting Diagnosis: 87 y o male presenting to ER 04/02/22 with symptoms of malaise and fatigue, with medical work up of only suggestion mild dehydration and potential viral process at the time. History of COPD, dementia, CHF, h/o seizure and chronic a-fib. Prior hospitalization for complications of respiratory distress with COVID on 02/11-02/18 at this hospital. Social History/Home Situation: Lives in a private home, independently. Lives with his . Has two story home, with a basement and second floor. He does not have to travel the stairs, with a ramp to enter the main floor. He has been going up and down the basement stairs to fetch things for his , but he does not have to go down them. He uses a SPC at home. Is not overly active, only doing basic self care and ADL's within the home throughout the day. His is not present to contribute to this report. Equipment Owned/DME: SPC Subjective: Feeling tired, and has not motivation. No pain. Objective: General Observation: In good spirits, no confusion, cooperative and encouraged to do PT. Telemetry in place. Mental Status: A & O x 3, can report he has 3 children and what towns they live in. ROM: Right Upper Extremity: WFL Left Upper Extremity: WFL Right Lower Extremity: WFL Left Lower Extremity:WFL Strength: Right Upper Extremity: Shoulder grossly 4/5, otherwise 4+/5 throughout Left Upper Extremity: Shoulder grossly 4-/5, otherwise 4+/5 throughout Right Lower Extremity: Grossly 5/5 Left Lower Extremity: Grossly 5/5 Bed Mobility/Transfers: Supervision sit to stand at RW Supervision assist stand to sit no AD Chair <> bed SBA can perform without RW, but fatigue encourages us of RW Ambulation 50 ft RW, CG O2 sat hovers around 95% throughout. BP is low initially at 88/55, improves to 110/67 post activity as documented Gait: RW, CG 50 ft. 5 steps no AD, CG with good stability. Balance: Static Sitting: Good Dynamic Sitting: Good Static Standing: Good with RW Dynamic Standing: Fair with RW Stage 4 Balance Test Time (seconds) Feet together 10 Partial tandem 10 Tandem unable One foot unable Special Tests: Mobility Limitations Standardized Measure [facility]-PAC 6 clicks Basic Mobility Inpatient Short Form: 35% disability Informed Consent/Education: Patient instructed in purpose of PT consult and plan of care. Treatment: Initial evaluation 21661 Therapeutic Procedures: Skilled exercise prescription for ROM, strengthening, and flexibility specific to patients problem Standing march x 10 HR x 10 Review in room activities written on board - sitting march, leg kicks, glutes sets, arm raises hourly x 10 Assessment: Patient is a 87 year old male referred to physical therapy services with reason for PT evaluation of limited ability and admitted diagnosis of malaise and fatigue in setting of suspect viral infection, dementia, CHF, A_fib, h/o seizures. Patient presents with with, balance, endurance limitations related to acute medical issues. She requires skilled PT intervention to maximize safety mobility to allow for safe transition home once medically stable, and attend to below deficits. Impairment level findings: Low BP - communicated with nursing. Only tolerated 5 min light activity at a time Impairments are contributing to the following functional limitations: Inability to tolerate household distance independently and with appropriate level of endurance to limit falls or medical event, and at premorbid level of function required for safe return home. Low BP Patient is assessed as low complexity based on the following: History: See assessment Examination: impairment and functional limitations as noted above Presentation: Stable Decision Making: Easy Goals: Goals X1 week 1. Supine-Sit : Independent 2. Sit-Supine : Independent 3. Sit-Stand : Independent 4. Stand-Sit : Independent 5. Bed-Chair : Independent 6. Chair-Bed : Independent 7. Gait : Independent household distance with SPC Plan of Care/Treatment Plan: 1-2x/day, 7 days/week x 1 week. Plan of care has been reviewed with the TALENT DEVELOPMENT DIRECTOR providing the service under Physical Therapy direction. Initiate Physical Therapy intervention for strengthening, bed mobility, transfers, gait, stairs, balance training, use of assistive device. DISCHARGE RECOMMENDATIONS: Home w support and HHPT. RW will be required for discharge for safety purposes if patient does not achieve above goals, to limit falls and support home based abilities. TREATMENT CODE/TIME: 69071 Lovely Viramontes, MPT [facility]
--- NOTE | 2023-04-03 10:14 | DI.VRAD_ITS ---
PROCEDURE INFORMATION: Exam: XR Chest Exam date and time: 04/03/2023 10:00 AM Age: 87 years old Clinical indication: Other: Chf TECHNIQUE: Imaging protocol: Radiologic exam of the chest. Views: 2 views. COMPARISON: CR XR PORTABLE CHEST AP 04/02/2023 7:40 PM FINDINGS: Lungs: There is bilateral apical fibrotic changes. The lungs are otherwise clear. There is hyperinflation of both lungs. Pleural spaces: Unremarkable. No pleural effusion. No pneumothorax. Heart/Mediastinum: Unremarkable. No cardiomegaly. Bones/joints: There is mild degenerative disease of bilateral acromioclavicular joint and bilateral glenohumeral joints. Similar compression deformity of the T5 vertebral body. Other findings: There is decrease in the moderate changes of congestive heart failure. IMPRESSION: Decrease in the previously described nodular changes of congestive heart failure with near-complete resolution. Dictated and Authenticated by: Ruel Garcia MD. Ordering:BRAYAN Leary MD
--- NOTE | 2023-04-03 10:56 | PDOC.CMIN ---
Date of service: 04/03/23 Time of Service: 10:56 Care Management Initial Assmt Initial Assessment REASON FOR HOSPITALIZATION:: acute respiratory failure with hypoxemia PREVIOUS FUNCTIONAL STATUS/SOCIAL/FAMILY SUPPORTS:: Dimitrios lives in [place] with his , Aletha. They have four children; one son at the age of 19 from a motorcycle accident. Ed reports that they have several grandchildren, but he does not see them often. 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 He has been independent and active at baseline. CURRENT FUNCTIONAL STATUS:: Ed was sitting up in his chair when CM met with him. He stated that he is doing well today, and his will be in later. He reported that he and his have been together for over 70 years, and that they generally get along well. He stated that they help care for each other. Later, Ed's Aletha visited, and CM met with both of them together. Aletha stated that they have HH services currently. She stated that she is Ed's primary caregiver, which can be tiring, but she is happy to continue to support him at home. CM informed her that per report, Ed will likely be ready for discharge home tomorrow, if he continues to improve. CM will continue to follow. ADVANCE DIRECTIVES:: On file; Aletha listed as HCA; Cecilia (daughter) listed as alternate HCA. COLST on file. Has patient been provided with info about the portal/API?: Yes Did the patient sign up for the portal?: Yes CODE STATUS:: DNR/DNI INSURANCE COVERAGE / FINANCIAL ISSUES:: [facility]. AARP supplemental. 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 PATIENT/FAMILY EDUCATION NEEDS:: Review discharge instructions and limitations, discussion of self care needs including ask me three. ANTICIPATED BARRIERS TO DISCHARGE:: None identified. TRANSPORTATION:: Via private vehicle by his . PLAN:: Anticipate Ed will return home once medically cleared, with a resumption of HH services. His will drive him home via private vehicle. He will follow up with his PCP and discharge plan of care. CM will continue to follow. PFSH All Active Problems (Updated 04/02/23 @ 22:03 by Gibran Pabon) Lactic acidosis (Acute) Acute on chronic respiratory failure with hypoxia and hypercapnia (Acute) Viral syndrome (Acute) Acute hypoxemic respiratory failure (Acute) Congestive heart failure (Acute) Hx of falling (Acute) Concern about end of life (Acute) Pulmonary embolism associated with COVID-19 (Acute) Hospital acquired PNA (Acute) Pneumonia due to COVID-19 virus (Acute) Severe sepsis (Acute) Pneumonia (Acute) COPD (chronic obstructive pulmonary disease) (Chronic) Breakthrough seizure (Acute) Rib fractures (Acute) Medical History Palliative care patient CAD (coronary artery disease) Seizure disorder H/O non-insulin dependent diabetes mellitus UTI (urinary tract infection) Kidney stones Myocardial infarction Hx of hyperlipidemia HTN (hypertension) Lung cancer Dementia Seizure Surgical History History of tonsillectomy History of coronary artery stent placement Family History Maternal Grandfather Leukemia Social History Smoking/Tobacco Use Status: Former Tobacco Use Smoking risk assessment performed?: Yes Alcohol Intake: never Substance use type: does not use Housing: house Do you feel safe at home: Yes Do you feel safe in your relationship?: Yes SDOH(Care Management) Screening Will the Patient Participate in the Screening?: Yes Do you worry about having a steady place to live?: choose not to answer In the past 12 months, have you had to go without electric, gas, oil or water in your home?: choose not to answer Have you or anyone in your house had to go without enough food to eat?: choose not to answer Has lack of transportation kept you from medical appointments or from doing things needed for daily living?: choose not to answer Has anyone in your support network made you feel unsafe for any reason?: choose not to answer
--- NOTE | 2023-04-03 15:18 | PGE_ITS ---
Date of Service Date of service: 04/03/23 Time of Service: 15:18 Assessment and Plan Assessment and plan (1) Acute on chronic respiratory failure with hypoxia and hypercapnia: Status: Resolved Assessment and plan: stable on room air (2) Lactic acidosis: Status: Resolved (3) Congestive heart failure: Status: Acute Assessment and plan: Patient BNP was slightly elevated but this has been a problem in the past and most likely associated with his lung disease. Patient had essentially normal echocardiogram February 2023. He was given 1 dose of IV Lasix with good effect Qualifiers: Heart failure type: diastolic Heart failure chronicity: acute on chronic Qualified Code(s): I50.33 - Acute on chronic diastolic (congestive) heart failure (4) Viral syndrome: Status: Acute Assessment and plan: Patient has no evidence of bacterial infection at this time continue to monitor (5) COPD (chronic obstructive pulmonary disease): Status: Chronic Assessment and plan: Patient will be switched to nebulized treatments while hospitalized with some findings over his right lung mathis by physical exam. Consider CT of the chest hypoxemia and focal lung findings persists. Plain film chest x-ray was unrevealing' anticipate discharge to home tomorrow if remains medically stable PT consultation discussed with Dr Herron Qualifiers: COPD type: chronic bronchitis Chronic bronchitis type: simple Qualified Code(s): J41.0 - Simple chronic bronchitis Subjective Subjective Patient reports: no new complaints, feels better, tolerating liquids well, tolerating a regular diet and afebrile Interval history since last seen: Safely really ambulated in the room. Sitting up in his chair voicing no complaints Exam Const General: cooperative, comfortable and no acute distress Nutritional Appearance: average body habitus Orientation: alert, awake and oriented x3 HENAL Head: normal to inspection, normocephalic and atraumatic Mouth: oral mucosae normal Chest Chest: normal inspection of the chest Resp Effort & Inspection: normal respiratory effort Auscultation: clear to auscultation bilaterally Cardio Rate: regular rate Rhythm: regular rhythm GI Inspection: normal to inspection Palpation: soft Auscultation: normal bowel sounds Skin General skin exam: no rashes or lesions noted Neuro General: patient alert, patient awake and patient oriented x3 Extrem General: normal to inspection, full ROM and no pedal edema Objective Last Vital Signs Temp 37.1 C 04/03/23 11:59 Pulse 55 L 04/03/23 12:10 Resp 18 04/03/23 11:59 BP 93/57 L 04/03/23 11:59 Pulse Ox 96 04/03/23 12:10 Laboratory Results - last 24 hr 04/02/23 04/02/23 04/02/23 16:50 17:34 17:45 WBC 3.61 L RBC 4.10 L Hgb 12.8 L Hct 39.0 L MCV 95 MCH 31.2 MCHC 32.8 RDW 14.4 H Plt Count 154 MPV 9.5 Immature Gran % 1.1 Neutrophils % 36.0 Lymphocytes % 27.1 Monocytes % 26.9 Eosinophils % 8.3 Basophils % 0.6 Nucleated RBC % 0.0 Absolute Neutrophils 1.30 Absolute Lymphocytes 0.98 L Absolute Monocytes 0.97 H Absolute Eosinophils 0.30 Absolute Basophils 0.02 ESR < 1 D-Dimer VBG pH VBG pCO2 VBG pO2 VBG HCO3 VBG Total CO2 VBG O2 Saturation VBG Base Excess VBG Lactate 1.5 H Sodium 142 Potassium 4.4 Chloride 106 Carbon Dioxide 29.9 Anion Gap 6.1 BUN 16 Creatinine 0.9 Est GFR (CKD-EPI 2020) 83.18 Glucose 103 Calcium 8.7 Magnesium 2.1 Total Bilirubin 0.5 AST 22 ALT 18 Alkaline Phosphatase 107 Ammonia 27 Creatine Kinase 54 Troponin I < 50 C-Reactive Protein 0.21 NT-Pro-B Natriuret Pep 439 H Total Protein 6.4 Albumin 3.2 L Lipase 79 H Procalcitonin < 0.1 Urine Color Yellow Urine Clarity Clear Urine pH 7.0 Ur Specific [place] 1.020 Urine Protein Negative Urine Ketones Negative Urine Blood Negative Urine Nitrite Negative Urine Bilirubin Negative Urine Urobilinogen 0.2 Ur Leukocyte Esterase Negative Urine Glucose Negative COVID-19 Source Nasopharynx SARS-CoV-2 (PCR) Negative Influenza Type A (PCR) Negative Influenza Type B (PCR) Negative RSV (PCR) Negative 04/02/23 04/02/23 04/03/23 19:40 21:21 06:44 WBC 4.34 L RBC 4.01 L Hgb 12.5 L Hct 37.4 L MCV 93 MCH 31.2 MCHC 33.4 RDW 14.4 H Plt Count 148 MPV 9.2 Immature Gran % Neutrophils % Lymphocytes % Monocytes % Eosinophils % Basophils % Nucleated RBC % Absolute Neutrophils Absolute Lymphocytes Absolute Monocytes Absolute Eosinophils Absolute Basophils ESR D-Dimer VBG pH 7.29 L VBG pCO2 58 H VBG pO2 36 VBG HCO3 28 VBG Total CO2 26 VBG O2 Saturation 58 VBG Base Excess 2 VBG Lactate 1.5 H Sodium 144 Potassium 3.9 Chloride 103 Carbon Dioxide 32.3 H Anion Gap 8.7 BUN 14 Creatinine 1.2 Est GFR (CKD-EPI 2020) 58.89 Glucose 105 Calcium 8.8 Magnesium 2.0 Total Bilirubin 0.8 AST 22 ALT 17 Alkaline Phosphatase 93 Ammonia Creatine Kinase Troponin I < 50 C-Reactive Protein NT-Pro-B Natriuret Pep 695 H Total Protein 6.0 L Albumin 3.1 L Lipase Procalcitonin Urine Color Urine Clarity Urine pH Ur Specific [place] Urine Protein Urine Ketones Urine Blood Urine Nitrite Urine Bilirubin Urine Urobilinogen Ur Leukocyte Esterase Urine Glucose COVID-19 Source SARS-CoV-2 (PCR) Influenza Type A (PCR) Influenza Type B (PCR) RSV (PCR) 04/03/23 08:16 WBC RBC Hgb Hct MCV MCH MCHC RDW Plt Count MPV Immature Gran % Neutrophils % Lymphocytes % Monocytes % Eosinophils % Basophils % Nucleated RBC % Absolute Neutrophils Absolute Lymphocytes Absolute Monocytes Absolute Eosinophils Absolute Basophils ESR D-Dimer 604 H VBG pH 7.44 H VBG pCO2 45 VBG pO2 26 VBG HCO3 31 H VBG Total CO2 28 VBG O2 Saturation 46 VBG Base Excess 7 H VBG Lactate 1.8 H Sodium Potassium Chloride Carbon Dioxide Anion Gap BUN Creatinine Est GFR (CKD-EPI 2020) Glucose Calcium Magnesium Total Bilirubin AST ALT Alkaline Phosphatase Ammonia Creatine Kinase Troponin I C-Reactive Protein NT-Pro-B Natriuret Pep Total Protein Albumin Lipase Procalcitonin Urine Color Urine Clarity Urine pH Ur Specific [place] Urine Protein Urine Ketones Urine Blood Urine Nitrite Urine Bilirubin Urine Urobilinogen Ur Leukocyte Esterase Urine Glucose COVID-19 Source SARS-CoV-2 (PCR) Influenza Type A (PCR) Influenza Type B (PCR) RSV (PCR) Time Spent with Patient Time Spent with Patient: 25-34 minutes Time was spent: preparing to see the patient(eg.review tests), obtaining and/or reviewing separately otained hiistory, ordering medications,tests, procedures and indepentently interpreting results
[2023-04-03] MEDS: Donepezil 5 MG TAB 10 MG PO (21:05)
[2023-04-04 04:42] VITALS: BP 102/52; PULSE 52; RESP 18; TEMP 36.6; O2SAT 93
[2023-04-04] MEDS: Albuterol/Ipratropium 3 ML UPD VIAL UPD ×2 (06:36→12:36)
--- NOTE | 2023-04-04 08:00 | DI.US_ITS ---
APPROVED REPORT EXAM: Limited 2D Echocardiogram Patient Location: In-Patient Room/Bed: 209 Compliance Review Officer: Chauncey Bueno RDCS (AE) Indications: ? CHF Conclusion Limited study,compared to study of 02/14/23 1. Normal chamber sizes. 2. Normal LV function,EF 55-60%. Normal RV. 3. Anatomically normal valves, except mild aortic sclerosis. 4. No pericardial effusion. No change from 02/14/23. Wall motion Left Ventricle The left ventricle is normal size. The left ventricular systolic function is normal. The left ventric ular ejection fraction is within the normal range. There is normal left ventricular wall thickness. T here is normal LV segmental wall motion. LVEF is 55%. Right Ventricle The right ventricle is normal size. Right ventricular systolic function is grossly normal. Atria The left atrium size is normal. The right atrium size is normal. Aortic Valve The Aortic valve is sclerotic. Aortic valve is probably trileaflet. Mitral Valve The mitral valve is normal in structure. Tricuspid Valve The tricuspid valve is normal in structure. Pulmonic Valve The pulmonary valve is normal in structure. Great Vessels The aortic root is normal in size. IVC is normal in size and collapses >50% with inspiration. Pericardium There is no pericardial effusion. 2D Dimensions IVSD d PLAX 0.79 cm M: 0.6-1.2 LVPW d PLAX 0.83 cm M: 0.6 - 1.2 LVID d PLAX 4.77 cm M: 4.2 - 5.8 LVDs 3.45 cm M: 2.5 - 4.0 LV EF Teichholz 53.6 % FS 27.65 % LV EDV (Teich) 105.9 mL LV ESV (Teich) 49.1 mL Stroke Vol Index (Teich) 33.17 Auto EF LV EDV A4C 105.6 mL LV EDV A2C 72.9 mL LV EDV BP 88.0 mL LV ESV A4C 48.5 mL LV ESV A2C 32.8 mL LV ESV BP 39.5 mL LVEF(%) A4C 54.1 % LVEF(%) A2C 55.1 % LVEF(%) BP 55.1 % LV SV A4C 57.1 ml LV SV A2C 40.2 ml LV SV BP 48.4 ml LV CO A4C 3.3 L/min LV CO A2C 2.3 L/min LV CO BP 2.8 L/min HR A4C 57.05 BPM HR A2C 57.51 BPM LV EDV Index (BP) LA Volume LA Length A4C 2.9 cm LA Length A2C 3.9 cm LA Area A4C s 6.78 cm2 LA Area A2C s 13.16 cm2 LA Vol A4C A-L 13.49 mL LA Vol A2C A-L 37.86 mL LA Vol Biplane A-L 26.2 mL LA Vol/BSA A4C A-L LA Vol/BSA A2C A-L LA Vol/BSA BP A-L 15.3 mL/m2 LA Vol A4C MOD 12.5 mL LA Vol A2C MOD 35.7 mL LA Vol BP MOD 24.3 mL RA Volume RA Area A4C 8.2 cm2 RA ESV A4C (A-L) 18.0mL RA Vol/BSA A4C A-L RA Length A4C 3.2 cm RA ESV A4C (MOD) 16.8mL
[2023-04-04] MEDS: Metoprolol CR 25 MG TABCR 12.5 MG PO (08:53)
[2023-04-04] MEDS: Multivitamin w/Minerals TAB 1 TAB PO (08:53)
[2023-04-04] MEDS: Citalopram 10 MG TAB 20 MG PO (08:53)
[2023-04-04] MEDS: Aspirin E.C. 81 MG TABEC PO (08:54)
[2023-04-04] MEDS: Normal Saline Flush 10 ML SYR IVP (08:54)
[2023-04-04] MEDS: Atorvastatin 40 MG TAB PO (08:54)
[2023-04-04] MEDS: Pantoprazole 40 MG TABCR PO (08:54)
[2023-04-04] MEDS: Lacosamide 100 MG TAB PO (08:54)
[2023-04-04] MEDS: Apixaban 5 MG TAB PO (08:54)
[2023-04-04] MEDS: Tamsulosin 0.4 MG CAPCR PO (08:54)
--- NOTE | 2023-04-04 12:05 | PT.INTREAT ---
Date of service: 04/04/23 Time of Service: 11:29 PT Notes Visit Reasons: Acute respiratory failure with hypoxemia and Hype Inpatient Physical Therapy Treatment Note [facility] Date: 04/04/23 PRECAUTIONS: Fall, standard, activity as tolerated. SUBJECTIVE: Patient reports feeling ok, expects to go home today. OBJECTIVE: Patient sitting up in beside chair, agreeable to therapy. ? PAIN: none reported VITALS: monitored by nursing staff ? BED MOBILITY/TRANSFERS? Rolling L/R: not assessed Supine-sit: not assessed ? Sit-supine: not assessed ? Sit-stand: SBA ? Stand-sit: SBA? Bed-Chair: SBA? Chair-bed: SBA ? Therapeutic Exercises ([id number]): Direct one-on-one instruction in therapeutic exercises to develop strength, endurance, range of motion and flexibility. Ambulation ? Assistive Device: FWW, SPC? Weight bearing: full Assist: SBA with occasional CGA? Distance:? 300 feet with FWW, 300 feet SPC with no rest between ? Deviation: Patient struggles to corner safely with FWW, tends to let it get away from him without verbal and tactile cuing. Overall, gait with SPC looked safer and more fluid. Patient demonstrates good understanding of gait sequence with AD, needs no cueing. ? Provided skilled instruction in proper exercise performance Provided skilled manual cues to facilitate proper muscle recruitment and/or form. ASSESSMENT:? Patient tolerates therapy well, reports no pain, no dyspnea reported or observed. No LOB. PLAN: Continue global strengthening per plan of care until patient is medically cleared for discharge. TREATMENT CODE/TIME: 16 minutes beginning at 11:29
--- NOTE | 2023-04-04 12:53 | W.PM.DS.N ---
Date of service: 04/04/23 Time of Service: 12:53 DS: Diagnosis Discharge Diagnosis (1) Acute on chronic respiratory failure with hypoxia and hypercapnia: Status: Resolved (2) Lactic acidosis: Status: Resolved (3) Congestive heart failure: Status: Acute (4) Viral syndrome: Status: Acute (5) COPD (chronic obstructive pulmonary disease): Status: Chronic Discharge Plan Disposition Patient Disposition: Home W/Home Health Services Condition: Stable Discharge Details Reason For Visit: Acute respiratory failure with hypoxemia and Hype Admit Date/Time: 04/02/23 21:47 Admit Provider: Gibran Pabon Attending Provider: Gibran Pabon Primary Care Provider: Jordon Padron Hospital Course Hospital Course: This is an 87-year-old gentleman with a history of dementia who presented to the emergency department for evaluation of generalized weakness and change in his mental status. He initially received IV hydration in the emergency department and then became hypoxic. After further evaluation it was thought to be due to some mild CHF. He received Lasix with improvement in his symptoms. He was referred to the medical surgical unit for further evaluation and management. On MedSurg he appeared to be back to his baseline he had no oxygen requirements no complaints he was eating and drinking bowels and bladder functioning. Physical therapy evaluated him and he was safely really ambulated. He did undergo a limited echocardiogram which demonstrated no change from his complete echocardiogram that was done on February 14, 2023 He is stable and ready for discharge to home with resumption of home health services. There have been no medication changes medically he has remained stable. Discharge discussed with Dr. Hreron Home Meds and New Rx's Prescriptions: Continued citalopram 10 mg tablet 20 mg PO DAILY therapeutic multivitamin Tablet 1 tab PO DAILY donepezil 10 mg tablet 10 mg PO HS melatonin 10 mg Tablet,Disintegrating 15 mg PO HS PRN Rx Instructions: take one and one half tablets = 15mg at bedtime tamsulosin 0.4 mg Capsule 0.4 mg PO DAILY memantine 5 mg tablet 5 mg PO QHS Patient Comments: TAKE 1 TABLET BY MOUTH NIGHTLY ketoconazole 2 % cream 1 applic TOPICAL BID PRN Patient Comments: APPLY CREAM TOPICALLY TO THE RASH ON THE SCALP AND AROUND HAIRLINE TWICE DAILY NEEDED Combivent Respimat 20-100 mcg/actuation Mist 1 puff INHALATION Q6H divalproex [Depakote ER] 500 mg Tablet Extended Release 24 Hr 500 mg PO BID pantoprazole 40 MG tablet,delayed release (DR/EC) 40 mg PO DAILY nitroglycerin [Nitrostat] 0.4 MG tablet, sublingual 0.4 mg Sublingual Q5 MIN PRN X3 PRN albuterol sulfate [Proventil HFA] 6.7 GM HFA aerosol inhaler 2 puff Inhalation Q4H PRN PRN aspirin 81 mg Tablet,Delayed Release (Dr/Ec) 81 mg PO DAILY lacosamide 100 mg tablet 100 mg PO BID Qty: 60 0RF acetaminophen 500 mg Tablet 1,000 mg PO Q8H PRN PRNQty: 30 0RF metoprolol succinate [Toprol XL] 25 mg tablet extended release 24 hr 12.5 mg PO DAILY Qty: 15 0RF apixaban 5 mg tablet 5 mg PO BID Qty: 60 0RF atorvastatin 40 mg tablet 40 mg PO DAILY Patient Comments: TAKE 1 TABLET BY MOUTH ONCE DAILY Discharge Instructions Instructions: Heart Failure (DC) Stand Alone Forms: Nursing Discharge Form Referrals: Jordon Padron [Primary Care Provider] - (A nurse from your PCP will call you with an Appointment ) Activity:: Activity as Tolerated Equipment/Supplies:: No Equipment Needed Diet:: As Tolerated Discharge Orders Discharge Orders: Discharge Order (Routine); Ordered 04/04/23 Ordered By: Jami Rueda DS: Summary Time Spent with Patient providing and/or coordinating discharge services: Less than 30 minutes Status at Discharge Functional status at discharge: uses cane/walker Overall status at discharge: patient is back to baseline Mental Status: mental status grossly normal Speech and Movement: speech and movement normal Mood: congruent mood Affect: normal affect Quality:SDOH Health Related Social Needs: No Data to Display Referrals and interventions: need to ask his Exam Const General: cooperative, comfortable and no acute distress Nutritional Appearance: average body habitus Orientation: alert and awake HENUT Head: normal to inspection, normocephalic and atraumatic Mouth: oral mucosae normal Chest Chest: normal inspection of the chest Resp Effort & Inspection: normal respiratory effort Auscultation: clear to auscultation bilaterally Cardio Rate: regular rate Rhythm: regular rhythm GI Inspection: normal to inspection Palpation: soft Auscultation: normal bowel sounds Skin General skin exam: no rashes or lesions noted Neuro General: patient alert and patient awake Extrem General: normal to inspection, full ROM and no pedal edema Psych Mental Status: mental status grossly normal Speech and Movement: speech and movement normal Mood: congruent mood Affect: normal affect DS: Data Vitals/I&O Vitals and I&O: Vital Signs Temperature 36.6 C 04/04/23 04:42 Temperature Source Tympanic 04/04/23 04:42 Pulse 52 L 04/04/23 04:42 Pulse Rhythm Regular 04/04/23 01:05 Pulse 59 L 04/02/23 18:01 Respiratory Rate 18 04/04/23 04:42 Respiratory Effort Normal, Non-Labored 04/04/23 01:05 Respiratory Depth Normal 04/04/23 01:05 Respiratory Pattern Normal 04/04/23 01:05 Blood Pressure 102/52 L 04/04/23 04:42 Blood Pressure Mean 83 04/02/23 18:01 Blood Pressure Position Sitting 04/02/23 16:35 Pulse Oximetry 93 04/04/23 04:42 Oxygen Delivery Method Room Air 04/04/23 04:42 Oxygen Flow Rate 0 04/04/23 04:42 Pain Level 0 04/03/23 15:44 Comment BP called over radio 04/03/23 11:59 Intake & Output 04/03/23 04/04/23 04/04/23 23:59 11:59 23:59 Intake Total 240 / 240 Output Total 200 / 800 Balance 40 / -560 Weight 63.5 kg Intake: IV 0 / 0 Oral 240 / 240 Output: Urine 200 / 800 Other: Urine Color Yellow Urine Appearance Cloudy Cloudy Urine Odor Normal Voiding Methods Urinal Data Completed and Pending Labs on day of discharge: Preliminary micro results at discharge 04/02/23 17:21 Blood Culture - Preliminary Blood NO GROWTH 24 HOURS 04/02/23 17:28 Blood Culture - Preliminary Blood NO GROWTH 24 HOURS PFSH All Active Problems (Updated 04/03/23 @ 23:15 by Jami Rueda NP) Viral syndrome (Acute) Acute hypoxemic respiratory failure (Acute) Congestive heart failure (Acute) Hx of falling (Acute) Concern about end of life (Acute) Pulmonary embolism associated with COVID-19 (Acute) Hospital acquired PNA (Acute) Pneumonia due to COVID-19 virus (Acute) Severe sepsis (Acute) Pneumonia (Acute) COPD (chronic obstructive pulmonary disease) (Chronic) Breakthrough seizure (Acute) Rib fractures (Acute) Medical History Palliative care patient CAD (coronary artery disease) Seizure disorder H/O non-insulin dependent diabetes mellitus UTI (urinary tract infection) Kidney stones Myocardial infarction Hx of hyperlipidemia HTN (hypertension) Lung cancer Dementia Seizure Surgical History History of tonsillectomy History of coronary artery stent placement Family History Maternal Grandfather Leukemia Social History Smoking/Tobacco Use Status: Former Tobacco Use Smoking risk assessment performed?: Yes Alcohol Intake: never Substance use type: does not use Housing: house Do you feel safe at home: Yes Do you feel safe in your relationship?: Yes Time Spent with Patient Time Spent with Patient: <45 minutes Time was spent: preparing to see the patient(eg.review tests), obtaining and/or reviewing separately otained hiistory, ordering medications,tests, procedures, indepentently interpreting results and care coordination
[2023-04-04 15:03] VITALS: BP 126/70; PULSE 61; RESP 22; TEMP 35.9; O2SAT 95
--- NOTE | 2023-04-04 15:33 | PDOC.CMDIS ---
Date of service: 04/04/23 Time of Service: 15:33 LACE Index Scoring Tool Questions: Length of Stay (in days): 2 Was the patient admitted via the E.D.?: Yes Comorbidities: Congestive Heart Failure and Chronic Pulmonary Disease E.D. Visits: 5 Answers: Total Score: 14 Risk of Readmission: High Risk Care Management Discharge Plan Reason for Hospitalization: acute respiratory failure with hypoxemia Discharge Plan: Edward will return home today with a resumption of HH services. CM contacted [facility] to inform them of his discharge. His will drive him home via private vehicle. He will follow up with his PCP and discharge plan of care. He is happy to be going home. Patient/Family Education Needs: Review discharge instructions and limitations, discussion of self care needs including ask me three. Services Needed at Discharge: Home Health Care Services (resume HH ) [facility] Health Related Social Needs: No Data to Display Referrals and interventions: need to ask his
== END 2023-04-04 16:27 | disposition home health service (06) | DRG 291 ==
LOC: ER 22:14 → MS 22:33
PROVIDERS: Internal Medicine; Admitting Provider Family Medicine; Emergency Provider Physician Assistant; PCP Family Medicine; Visit Provider Family Medicine
DX: I11.0 Hypertensive heart disease with heart failure (principal); I50.33 Acute on chronic diastolic (congestive) heart failure; J96.21 Acute and chronic respiratory failure with hypoxia; J96.22 Acute and chronic respiratory failure with hypercapnia; E87.20 Acidosis, unspecified; I48.20 Chronic atrial fibrillation, unspecified; B34.9 Viral infection, unspecified; Z79.01 Long term (current) use of anticoagulants; Z66 Do not resuscitate; J41.0 Simple chronic bronchitis; G31.09 Other frontotemporal neurocognitive disorder; F02.80 Dementia in other diseases classified elsewhere, unspecified severity, without behavioral disturbance, psychotic disturbance, mood disturbance, and anxiety; R41.3 Other amnesia; Z85.118 Personal history of other malignant neoplasm of bronchus and lung; R29.6 Repeated falls; Z91.81 History of falling; Z86.711 Personal history of pulmonary embolism; G40.909 Epilepsy, unspecified, not intractable, without status epilepticus; I25.10 Atherosclerotic heart disease of native coronary artery without angina pectoris; E11.9 Type 2 diabetes mellitus without complications; I25.2 Old myocardial infarction; E78.5 Hyperlipidemia, unspecified; Z95.5 Presence of coronary angioplasty implant and graft
CPT/HCPCS: 00123; 36415; 80053; 82550; 82805; 83690; 84145; 85027; 85652; 87040; 87637; 93005; 93308; 96361; 96374; 97110; 97162; 99285; 71045; 71046; 74177; 81003; 82140; 83605; 83735; 83880; 84484; 85025; 85379; 86140; 93010; 94640; 99223; 99233; 99238; J1940; J3490; J7620

== ENCOUNTER 2023-07-07 05:45 | Outpatient (CLI) | payer MEDICARE, SELFPAY ==
[2023-07-07 21:28] LABS: ALT 26 U/L (16-63); AST 28 U/L (15-37); Albumin 3.5 g/dL (3.4-5.0); Alkaline Phosphatase 75 U/L (46-116); Bilirubin, Total 0.5 mg/dL (0.2-1.0); Total Protein 6.3 g/dL (6.4-8.2)
[2023-07-07 22:17] LABS: Bilirubin, Direct 0.1 mg/dL (0.0-0.2)
== END 2023-07-07 05:46 | disposition home or self-care (01) ==
LOC: LBO 05:45
PROVIDERS: PCP Family Medicine; Referring Provider Family Medicine; Visit Provider Family Medicine
DX: B35.1 Tinea unguium (principal)
CPT/HCPCS: 36415; 80076

== ENCOUNTER 2023-08-07 10:17 | Inpatient (IN) | payer MEDICARE, SELFPAY ==
[2023-08-07] VITALS (72 sets, daily range): BP systolic 87–135; BP diastolic 38–77; PULSE 57–97; RESP 2–35; TEMP 36–38.6; O2SAT 91–98
--- NOTE | 2023-08-07 10:30 | DI.RAD_ITS ---
Exam(s) XR CHEST 2V PA LATERAL EXAM: XR CHEST 2V PA LATERAL CLINICAL HISTORY: fever TECHNIQUE: 2D digital imaging was performed. Two views. COMPARISON: CR,XR XR CHEST 2V PA LATERAL from 04/03/2023 FINDINGS: Exam limited by suboptimal pulmonary inflation and underpenetration. HEART: Normal size. Aorta: Not dilated. PULMONARY VASCULATURE: Normal. LUNGS: Underlying fibrotic changes. No gross area of consolidation. No gross evidence of pulmonary edema. PLEURAL SPACE: No pleural effusion or pneumothorax. BONE:Stable mid thoracic compression fractures. Soft tissues: Unremarkable. IMPRESSION: Limited exam. No acute abnormality. DATA REPOSITORY: RADIATION DOSE DELIVERED:
--- NOTE | 2023-08-07 10:30 | RT.EKG_ITS ---
APPROVED REPORT Exam: Resting ECG Reason for Exam: Seizure Patient Location: E HR:91 bpm ECG Measurements Heart Rate 91 AXIS MT 146 P 59 QRSd 106 QRS -54 QT 353 T 104 QTc 433 Conclusion Sinus rhythm...normal P axis, V-rate 60- 99 Left anterior fascicular block...axis(240,-40), init forces inf Anteroseptal infarct, old...Q >40mS, V1-V2 Nonspecific T abnormalities, lateral leads...T <-0.10mV, I aVL V5 V6
[2023-08-07] MEDS: Lactated Ringers 500 ML IV (10:40)
[2023-08-07 10:41] LABS: BE (Venous) 3 mmol/L (-2-3); HCO3 (Venous) 27 mmol/L (23-28); O2 Sat (Venous) 76 %; TCO2 (Venous) 24 mmol/L (24-29); pCO2 (Venous) 39 mmHg (41-51); pH (Venous) 7.45 (7.31-7.41); pO2 (Venous) 41 mmHg
[2023-08-07 10:44] LABS: Lactate 2.3 mmol/L (0.6-1.4)
--- NOTE | 2023-08-07 10:45 | DI.CT_ITS ---
Exam(s) CT HEAD WO EXAM: CT HEAD WO CLINICAL HISTORY: altered mental status. TECHNIQUE: Imaging Protocol: Axial computed tomography images with coronal and sagittal reformatted images were created and reviewed COMPARISON: CT CT HEAD CERVICAL SPINE WO from 03/26/2023 FINDINGS: Ventricles and Extra axial spaces: Normal in size and morphology for the patient's age. Hemorrhage: None. Cerebral parenchyma: No evidence of acute infarct or mass. Mild microvascular changes. Mild atrophy. Midline shift: None. Brainstem/Cerebellum: Normal. Calvarium: Normal. Visualized Paranasal sinuses:Clear. Mastoids: Clear. Soft Tissues: Unremarkable. ORBITS: Unremarkable. PITUITARY: Not enlarged. Partially empty sella. IMPRESSION: No acute intracranial process. RADIATION DOSE DELIVERED: Total DLP DATA REPOSITORY: All CT scans at this facility are submitted to the National Radiology Data Registry (NRDR) Dose Index Registry (DIR) with the [employer] ([employer]). RADIATION OPTIMIZATION: All CT scans at this facility use at least one of these dose optimization te chniques: automated exposure control; mA and/or kV adjustment per patient size (includes targeted exa ms where dose is matched to clinical indication); or iterative reconstruction.
[2023-08-07 10:48] LABS: Abs Immature Grans 0.08 10^3/uL (0.0-0.06); Absolute Basophil Count 0.01 10^3/uL (0.0-0.2); Absolute Lymphocyte Count 0.32 10^3/uL (1.2-3.4); Absolute Monocyte Count 0.57 10^3/uL (0.1-0.8); Absolute Neutrophil Count 2.71 10^3/uL (1.2-6.7); Basophils % 0.3 %; Eosinophils % 2.6 %; HCT 39.8 % (40.0-50.0); HGB 13.4 g/dL (13.5-17.5); Immature Grans % 2.1 %; Lymphocytes % 8.4 %; MCH 30.7 pg (27.0-33.0); MCHC 33.7 % (32.0-36.0); MCV 91 fL (80-95); Neutrophils % 71.6 %; Platelet Count 122 10^3/uL (130-400); RBC 4.37 10^6/uL (4.36-5.78); RDW 14.1 % (11.8-14.1); WBC 3.79 10^3/uL (4.4-10.8)
--- NOTE | 2023-08-07 10:53 | ED.GENADUL_ITS ---
Discharge Plan Disposition Patient Disposition: Admit to [facility] Condition: Serious Discharge Details Chief Complaint: Seizure Clinical Impression: Seizure, Elevated troponin, Noncompliance with medications, Pneumonia, Hypomagnesemia Primary Care Provider: García Scruggs ED Provider: Best Lynne Home Meds and New Rx's Prescriptions: No Action terbinafine HCl 250 mg tablet 250 mg PO DAILY Qty: 30 0RF citalopram 10 mg tablet 20 mg PO DAILY therapeutic multivitamin Tablet 1 tab PO DAILY donepezil 10 mg tablet 10 mg PO HS melatonin 10 mg Tablet,Disintegrating 15 mg PO HS PRN Rx Instructions: take one and one half tablets = 15mg at bedtime tamsulosin 0.4 mg Capsule 0.4 mg PO DAILY memantine 5 mg tablet 5 mg PO QHS Patient Comments: TAKE 1 TABLET BY MOUTH NIGHTLY ketoconazole 2 % cream 1 applic TOPICAL BID PRN Patient Comments: APPLY CREAM TOPICALLY TO THE RASH ON THE SCALP AND AROUND HAIRLINE TWICE DAILY NEEDED Combivent Respimat 20-100 mcg/actuation Mist 1 puff INHALATION Q6H Hold Instructions: Pt Stopped/Never Started divalproex [Depakote ER] 500 mg Tablet Extended Release 24 Hr 500 mg PO BID pantoprazole 40 MG tablet,delayed release (DR/EC) 40 mg PO DAILY nitroglycerin [Nitrostat] 0.4 MG tablet, sublingual 0.4 mg Sublingual Q5 MIN PRN X3 PRN albuterol sulfate [Proventil HFA] 6.7 GM HFA aerosol inhaler 2 puff Inhalation Q4H PRN PRN Hold Instructions: Pt Stopped/Never Started aspirin 81 mg Tablet,Delayed Release (Dr/Ec) 81 mg PO DAILY lacosamide 100 mg tablet 100 mg PO BID Qty: 60 0RF acetaminophen 500 mg Tablet 1,000 mg PO Q8H PRN PRNQty: 30 0RF metoprolol succinate [Toprol XL] 25 mg tablet extended release 24 hr 12.5 mg PO DAILY Qty: 15 0RF apixaban 5 mg tablet 5 mg PO BID Qty: 60 0RF atorvastatin 40 mg tablet 40 mg PO DAILY Patient Comments: TAKE 1 TABLET BY MOUTH ONCE DAILY HPI General Mode of arrival: EMS . Date/Time Provider Initiated Documentation: 08/07/23 10:30 . Limitations to Documentation: altered mental status . Information obtained by: patient and family . 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 Per the patient's , she witnessed seizure-like activity this morning. She describes generalized tonic-clonic seizure. Patient unresponsive post seizure. notes that he was generally not feeling well last night and states he did not take his medications last night. EMS arrived to find the patient no extreme pain febrile and administered acetaminophen IV. History limited secondary to altered mental status. Patient denies headache. Related Data Home Medications Medication Instructions Recorded Confirmed albuterol sulfate 90 mcg/actuation 2 puff inhalation Q4H PRN PRN 04/27/16 08/07/23 aerosol inhaler (Proventil HFA) nitroglycerin 0.4 mg sublingual 0.4 mg sublingual Q5 MIN PRN X3 PRN 04/27/16 08/07/23 tablet (Nitrostat) pantoprazole 40 mg tablet,delayed 40 mg PO DAILY 04/27/16 08/07/23 release aspirin 81 mg tablet,delayed 81 mg PO DAILY 12/18/19 08/07/23 release citalopram 10 mg tablet 20 mg PO DAILY 02/20/21 08/07/23 therapeutic multivitamin 1 tab PO DAILY 02/20/21 08/07/23 donepezil 10 mg tablet 10 mg PO HS 11/26/21 08/07/23 melatonin 10 mg disintegrating 15 mg PO HS PRN 11/26/21 08/07/23 tablet tamsulosin 0.4 mg capsule 0.4 mg PO DAILY 11/26/21 08/07/23 memantine 5 mg tablet 5 mg PO QHS 06/02/22 08/07/23 lacosamide 100 mg tablet 100 mg PO BID #60 tabs 06/04/22 08/07/23 ipratropium 20 mcg-albuterol 100 1 puff inhalation Q6H 08/29/22 08/07/23 mcg/actuation mist for inhalation (Combivent Respimat) ketoconazole 2 % topical cream 1 applic topical BID PRN 08/29/22 08/07/23 divalproex 500 mg tablet,extended 500 mg PO BID 09/01/22 08/07/23 release 24 hr (Depakote ER) acetaminophen 500 mg tablet 1,000 mg (2 x 500 mg) PO Q8H PRN 02/18/23 08/07/23 PRN #30 tabs apixaban 5 mg tablet 5 mg PO BID #60 tabs 02/18/23 08/07/23 metoprolol succinate 25 mg 12.5 mg (1/2 x 25 mg) PO DAILY #15 02/18/23 08/07/23 tablet,extended release 24 hr tabs (Toprol XL) atorvastatin 40 mg tablet 40 mg PO DAILY 04/02/23 08/07/23 terbinafine HCl 250 mg tablet 250 mg PO DAILY #30 tabs 07/01/23 08/07/23 Previous Rx's Medication Instructions Recorded lacosamide 100 mg tablet 100 mg PO BID #60 tabs 06/04/22 acetaminophen 500 mg tablet 1,000 mg (2 x 500 mg) PO Q8H PRN 02/18/23 PRN #30 tabs apixaban 5 mg tablet 5 mg PO BID #60 tabs 02/18/23 metoprolol succinate 25 mg 12.5 mg (1/2 x 25 mg) PO DAILY #15 02/18/23 tablet,extended release 24 hr tabs (Toprol XL) terbinafine HCl 250 mg tablet 250 mg PO DAILY #30 tabs 07/01/23 Allergies Allergy/AdvReac Type Severity Reaction Status Date / Time oxycodone [From Percocet] AdvReac Other (See Unverified 08/07/23 10:49 Comment) Penicillins AdvReac Other (See Unverified 08/07/23 10:49 Comment) General Stated Complaint: Seizure FORD: 3 Review of Systems Unobtainable due to mental condition Constitutional Constitutional: Denies headache(s) ENT Ears, Nose, Mouth, and Throat: Denies headache(s) Cardiovascular Cardiovascular: Denies chest pain Gastrointestinal Gastrointestinal: Denies abdominal pain Neurologic Neurologic: Denies headache(s) and Reports convulsions Exam Const General: cooperative Nutritional Appearance: average body habitus Orientation: oriented to person and confused HENMN Head: normocephalic and atraumatic Mouth: moist mucous membranes Eyes Conjunctivae: normal conjunctivae Sclera: normal sclerae Neck Neck: no meningeal signs and trachea midline Resp Auscultation: rales on the right, no rhonchi and no wheezes Cardio Rate: tachycardic Rhythm: regular rhythm GI Palpation: soft, not firm, no guarding, no masses, not rigid and nontender Skin General skin exam: no rashes or lesions noted Neuro General: patient alert, patient awake and tone normal Cognition: abnormal cognition Extrem General: no edema Course Vital Signs Vital signs: Vital Signs Temperature 38.6 C H 08/07/23 10:17 Pulse 97 H 08/07/23 10:17 Respiratory Rate 13 08/07/23 10:17 Blood Pressure 135/65 08/07/23 10:17 Pulse Oximetry 96 08/07/23 10:17 Temperature 38.6 C H 08/07/23 10:17 Temperature Source Temporal Artery Scan 08/07/23 10:17 Pulse 90 08/07/23 10:47 Pulse 85 08/07/23 10:47 Respiratory Rate 32 H 08/07/23 10:47 Respiratory Effort Normal, Non-Labored 08/07/23 10:45 Respiratory Depth Normal 08/07/23 10:45 Respiratory Pattern Tachypnea 08/07/23 10:45 Blood Pressure 116/49 L 08/07/23 10:47 Blood Pressure Mean 72 08/07/23 10:47 Blood Pressure Position Supine 08/07/23 10:17 Pulse Oximetry 95 08/07/23 10:47 Oxygen Delivery Method Nasal Cannula 08/07/23 10:41 Oxygen Flow Rate 2 08/07/23 10:41 Pain Level 0 08/07/23 10:17 Lab/Test Results Lab/Test Results: 08/07/23 10:38 Blood Blood Culture - Pending 08/07/23 10:30 Blood Blood Culture - Pending Laboratory Tests Range/Units 08/07/23 10:30 WBC (4.4-10.8) 10^3/uL 3.79 L RBC (4.36-5.78) 10^6/uL 4.37 Hgb (13.5-17.5) g/dL 13.4 L Hct (40.0-50.0) % 39.8 L MCV (80-95) fL 91 MCH (27.0-33.0) pg 30.7 MCHC (32.0-36.0) % 33.7 RDW (11.8-14.1) % 14.1 Plt Count (130-400) 10^3/uL 122 L MPV (8.0-11.0) fL 10.0 Immature Gran % % 2.1 Neutrophils % % 71.6 Lymphocytes % % 8.4 Monocytes % % 15.0 Eosinophils % % 2.6 Basophils % % 0.3 Nucleated RBC % (0.0-0.3) % 0.0 Absolute Neutrophils (1.2-6.7) 10^3/uL 2.71 Absolute Lymphocytes (1.2-3.4) 10^3/uL 0.32 L Absolute Monocytes (0.1-0.8) 10^3/uL 0.57 Absolute Eosinophils (0.0-0.7) 10^3/uL 0.10 Absolute Basophils (0.0-0.2) 10^3/uL 0.01 VBG pH (7.31-7.41) 7.45 H VBG pCO2 (41-51) mmHg 39 L VBG pO2 mmHg 41 VBG HCO3 (23-28) mmol/L 27 VBG Total CO2 (24-29) mmol/L 24 VBG O2 Saturation % 76 VBG Base Excess (-2-3) mmol/L 3 VBG Lactate (0.6-1.4) mmol/L 2.3 H* Medical Decision Making 1350?88-year-old male with multiple medical problems including history of dementia, AAS CVD, CHF, lung cancer, A-fib with RVR, pulmonary embolism that was associated with COVID-19, COPD, here with altered mental status after witnessed generalized tonic-clonic seizure activity, found to be febrile by EMS and given acetaminophen and route. Patient continues to be febrile with tachycardia. He is normotensive. Patient has right lung rales. No signs of meningitis. Patient denies headache and is able to range his neck without discomfort. Initial concern for pneumonia versus UTI. Considered acute life-threatening intracranial hemorrhage. CT of the head was interpreted by radiology: No large territorial infarct or intracranial bleed. Chest x-ray was reviewed and interpreted by radiology: No acute cardiopulmonary process. Labs reviewed: Urinalysis is not consistent with UTI. Patient does have elevated lactate with leukopenia. Troponin is elevated at 82. Depakote level is in the low therapeutic range. I will give Keppra 1 g IV to prevent recurrent seizure. EKG was reviewed and interpreted by me: Sinus rhythm 91 bpm, left axis deviation, left anterior fascicular block, subtle ST depression noted lead I and aVL compared to prior EKG from 04/02/2023. Patient has no chest pain. Plan to trend troponin. Consider acute pulmonary embolism. Patient is noncompliant with medications. Plan to obtain CT of the chest and will include abdomen pelvis given unclear etiology for fever at this time. I spoke with patient's daughter and regarding potential for [employer] infection. We discussed lumbar puncture and determined that patient would not desire this procedure. They do request that antibiotics be initiated. I have started treatment with vancomycin IV and ceftriaxone IV after informed consent and review of allergies. 1515 --CT of the chest and abdomen pelvis to assess for pulmonary embolism and other infectious etiology was interpreted by radiology: No pulmonary embolism. Left lower lobe pneumonia. No acute intra-abdominal process. Patient has received vancomycin and ceftriaxone. I will add doxycycline IV. Plan to hospitalize. 1543 -- I spoke with Dr. Hendricks, discussed ED presentation course including diagnostics, he will admit the patient. Lab Data Lab results reviewed: Yes I reviewed the patient's lab results. Labs: 08/07/23 10:38 Blood Blood Culture - Pending 08/07/23 10:30 Blood Blood Culture - Pending Laboratory Tests Range/Units 08/07/23 08/07/23 08/07/23 10:30 10:50 11:43 WBC (4.4-10.8) 10^3/uL 3.79 L RBC (4.36-5.78) 10^6/uL 4.37 Hgb (13.5-17.5) g/dL 13.4 L Hct (40.0-50.0) % 39.8 L MCV (80-95) fL 91 MCH (27.0-33.0) pg 30.7 MCHC (32.0-36.0) % 33.7 RDW (11.8-14.1) % 14.1 Plt Count (130-400) 10^3/uL 122 L MPV (8.0-11.0) fL 10.0 Immature Gran % % 2.1 Neutrophils % % 71.6 Lymphocytes % % 8.4 Monocytes % % 15.0 Eosinophils % % 2.6 Basophils % % 0.3 Nucleated RBC % (0.0-0.3) % 0.0 Absolute Neutrophils (1.2-6.7) 10^3/uL 2.71 Absolute Lymphocytes (1.2-3.4) 10^3/uL 0.32 L Absolute Monocytes (0.1-0.8) 10^3/uL 0.57 Absolute Eosinophils (0.0-0.7) 10^3/uL 0.10 Absolute Basophils (0.0-0.2) 10^3/uL 0.01 VBG pH (7.31-7.41) 7.45 H VBG pCO2 (41-51) mmHg 39 L VBG pO2 mmHg 41 VBG HCO3 (23-28) mmol/L 27 VBG Total CO2 (24-29) mmol/L 24 VBG O2 Saturation % 76 VBG Base Excess (-2-3) mmol/L 3 VBG Lactate (0.6-1.4) mmol/L 2.3 H* Sodium (136-145) mmol/L 142 Potassium (3.5-5.1) mmol/L 4.0 Chloride (98-107) mmol/L 105 Carbon Dioxide (21.0-32.0) mmol/L 27.9 Anion Gap (3-11) mmol/L 9.1 BUN (7-18) mg/dL 15 Creatinine (0.70-1.30) mg/dL 1.2 Est GFR (CKD-EPI 2020) (mL/min/1.73m2) 58.53 Glucose (74-106) mg/dL 125 H Calcium (8.5-10.1) mg/dL 8.3 L Magnesium (1.8-2.4) mg/dL 1.7 L Total Bilirubin (0.2-1.0) mg/dL 0.7 AST (15-37) U/L 27 ALT (16-63) U/L 29 Alkaline Phosphatase (46-116) U/L 83 Troponin I (< or =60) ng/L 82 H* Total Protein (6.4-8.2) g/dL 6.3 L Albumin (3.4-5.0) g/dL 3.5 Procalcitonin ng/mL 1.1 TSH (0.36-3.74) uIU/mL 3.33 Urine Color (Yellow) Yellow Urine Clarity (Clear) Clear Urine pH (5-8) 8.5 H Ur Specific [place] (1.005-1.025) 1.020 Urine Protein (Neg-Trace) mg/dL Trace Urine Ketones (Negative) mg/dL Trace H Urine Blood (Negative) Trace-intact H Urine Nitrite (Negative) Negative Urine Bilirubin (Negative) Negative Urine Urobilinogen (Up to 0.2) mg/dL 2.0 H Ur Leukocyte Esterase (Negative) Negative Urine RBC (0-2) HPF 5-10 H Urine WBC (0-5) HPF 0-2 Ur Epithelial Cells (Negative) HPF Negative Urine Crystals (Negative) HPF Negative Urine Bacteria (Negative) HPF Negative Urine Casts (Negative) LPF Negative Urine Mucus (Negative) Negative Ur Culture Indicated? No Urine Glucose (Negative) mg/dL Negative Valproic Acid ( - 150) ug/mL 58.2 COVID-19 Source Nasopharynx SARS-CoV-2 (PCR) (Negative) Negative Influenza Type A (PCR) (Negative) Negative Influenza Type B (PCR) (Negative) Negative RSV (PCR) (Negative) Negative Quality:SDOH Health Related Social Needs: No Data to Display PFSH All Active Problems (Updated 08/07/23 @ 15:45 by Best Lynne MD) Hypomagnesemia (Acute) Pneumonia (Acute) Noncompliance with medications (Acute) Elevated troponin (Acute) Seizure (Acute) Onychomycosis (Acute) Obstructive sleep apnea (Chronic) Rosacea (Acute) 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) Pre-diabetes (Acute) Lung nodule (Acute) Lumbar spinal stenosis (Acute) Hyperlipidemia (Acute) GERD (gastroesophageal reflux disease) (Chronic) Depression, recurrent (Chronic) Dementia with behavioral disturbance (Acute) Cognitive changes (Acute) COAG (chronic open-angle glaucoma) (Acute) Status post cataract extraction of both eyes with insertion of intraocular lens (Acute) Benign prostatic hyperplasia (Chronic) Basal cell carcinoma of nose (Acute) ASCVD (arteriosclerotic cardiovascular disease) (Acute) Anxiety (Chronic) Congestive heart failure (Acute) Hx of falling (Acute) Concern about end of life (Acute) Pulmonary embolism associated with COVID-19 (Acute) COPD (chronic obstructive pulmonary disease) (Chronic) Breakthrough seizure (Acute) Medical History Primary cutaneous marginal zone B-cell lymphoma Cataract Skin cancer of anterior chest Pulmonary embolism without acute cor pulmonale Neck pain Hx of colonic polyp Broken arm Palliative care patient CAD (coronary artery disease) Seizure disorder H/O non-insulin dependent diabetes mellitus UTI (urinary tract infection) Myocardial infarction Hx of hyperlipidemia Dementia Surgical History History of tonsillectomy History of coronary artery stent placement Family History Maternal Grandfather Leukemia Mother Alcohol use disorder Anxiety Cancer Social History Smoking/Tobacco Use Status: Former Tobacco Use Tobacco: How many years used: 40 Second Hand Exposure: Yes Smoking risk assessment performed?: Yes Alcohol Intake: current Alcohol Intake frequency: holidays/special occasions only Drug use: Never Substance use type: does not use Adopted: No Foster care: No Household members: spouse Housing: house Number of Children: 4 Communication Needs: Hard of Hearing and Corrective Lenses Education Level: high school Do you need help understanding health information?: Often current occupation: retired Pets and animals: No Sexually active: No Do you think of yourself as: straight/heterosexual Current gender identity: male What is your relationship status?: How often do you talk on the phone with friends or family?: three or more times per week How often do you get together with friends or relatives?: decline to answer Do you belong to any clubs or organized social groups?: no Panel score (0-1 are the most socially isolated patients): 2 What type of physical activity do you participate in: additional Details: is in PT twice a week Duration: 15-30 minutes/day Frequency: 5-6 times per week Meenu/Sabianism: Jainism Special meenu needs: No Seatbelt use: always Helmet use: No Drive 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
[2023-08-07 11:10] LABS: ALT 29 U/L (16-63); AST 27 U/L (15-37); Albumin 3.5 g/dL (3.4-5.0); Alkaline Phosphatase 83 U/L (46-116); Anion Gap 9.1 mmol/L (3-11); BUN 15 mg/dL (7-18); Bilirubin, Total 0.7 mg/dL (0.2-1.0); CO2 27.9 mmol/L (21.0-32.0); CREATININE 1.2 mg/dL (0.70-1.30); Calcium 8.3 mg/dL (8.5-10.1); Chloride 105 mmol/L (98-107); Estimated GFR 58.53 (mL/min/1.73m2); Glucose 125 mg/dL (74-106); Magnesium 1.7 mg/dL (1.8-2.4); Sodium 142 mmol/L (136-145); TSH (W/Ref FT4) 3.33 uIU/mL (0.36-3.74); Total Protein 6.3 g/dL (6.4-8.2)
[2023-08-07 11:12] LABS: Troponin I 82 ng/L (< or =60)
[2023-08-07 11:20] LABS: Procalcitonin 1.1 ng/mL
[2023-08-07 11:26] LABS: VALPROIC ACID 58.2 ug/mL
--- NOTE | 2023-08-07 11:29 | DI.VRAD_ITS ---
PROCEDURE INFORMATION: Exam: CT Head Without Contrast Exam date and time: 08/07/2023 11:10 AM Age: 88 years old Clinical indication: Altered mental status/memory loss TECHNIQUE: Imaging protocol: Computed tomography of the head without contrast. COMPARISON: CT HEAD CERVICAL SPINE WO 03/26/2023 10:49 AM FINDINGS: Brain: There are bilateral periventricular white matter and centrum semiovale hypodensities consistent chronic ischemic small vessel disease. Mild diffuse parenchymal volume loss. No recent infarct, intracranial bleed or mass effect. Cerebral ventricles: No ventriculomegaly. Pituitary gland and sella: Partially empty sella. Paranasal sinuses: Visualized sinuses are unremarkable. No fluid levels. Mastoid air cells: Visualized mastoid air cells are well aerated. Orbital cavities: Post bilateral cataract surgery. Bones: Unremarkable. No acute fracture. Soft tissues: Unremarkable. IMPRESSION: No large territorial infarct or intracranial bleed. Dictated and Authenticated by: Ruel Garcia MD. Ordering:VICTOR MANUEL Jewell MD
--- NOTE | 2023-08-07 11:30 | DI.VRAD_ITS ---
PROCEDURE INFORMATION: Exam: XR Chest Exam date and time: 08/07/2023 11:18 AM Age: 88 years old Clinical indication: Fever TECHNIQUE: Imaging protocol: Radiologic exam of the chest. Views: 2 views. COMPARISON: CR XR CHEST 2V PA LATERAL 04/03/2023 10:00 AM FINDINGS: Lungs: Bilateral apical fibrotic changes. No focal consolidation. Pleural spaces: Unremarkable. No pleural effusion. No pneumothorax. Heart/Mediastinum: Unremarkable. No cardiomegaly. Vasculature: Unfolding of the aortic arch. Bones/joints: Moderate degenerative disease of bilateral acromioclavicular joints. Narrowing of bilateral subacromial distance consistent with chronic rotator cuff disease. Chronic compression deformities of T5 and T6 vertebral bodies. IMPRESSION: No acute cardiopulmonary process. Dictated and Authenticated by: Ruel Garcia MD. Ordering:VICTOR MANUEL Jewell MD
[2023-08-07 11:37] LABS: COVID-19 PCR Negative (Negative); Influenza A PCR Negative (Negative); Influenza B PCR Negative (Negative); RSV PCR Negative (Negative)
[2023-08-07 11:38] LABS: Source Nasopharynx
[2023-08-07 11:51] LABS: Bilirubin Negative (Negative); Blood Trace-intact (Negative); Clarity Clear (Clear); Glucose Negative (Negative); Ketones Trace mg/dL (Negative); Leukocyte Esterase Negative (Negative); Nitrite Negative (Negative); pH 8.5 (5-8)
[2023-08-07 11:59] LABS: Bacteria Negative HPF (Negative); C & S Indicated? No; Casts Negative LPF (Negative); Crystals Negative HPF (Negative); Epithelial Cells Negative HPF (Negative); Mucus Negative (Negative); WBC 0-2 HPF (0-5)
--- NOTE | 2023-08-07 13:00 | DI.CT_ITS ---
Exam(s) CT CHEST PE ABD PELVIS W EXAM: CT CHEST PE ABD PELVIS W CLINICAL HISTORY: prior pe, noncompliant, tachycardia, fever. TECHNIQUE: Imaging Protocol: Axial CT angiography was performed with multi-slice acquisition and mu lti-planar and/or 3D reconstructions. CONTRAST MATERIAL: Intravenous: Omnipaque 350 Contrast volume:100 ml COMPARISON: CT CT ABDOMEN PELVIS W from 04/02/2023 FINDINGS: CHEST: Pulmonary Arteries: No evidence of filling defects to suggest pulmonary emboli. Tracheobronchial tree: No bronchiectasis or mucus plugging. Mediastinum and Megha: No dominant adenopathy or fluid collection. Moderate-sized hiatal hernia. Pulmonary parenchyma: Exam somewhat limited by respiratory motion and expiratory changes. Infiltrate s at the left lower lobe suspicious for pneumonia. Fainter, ground-glass appearing infiltrates are a re noted in the right upper lobe. There is dependent atelectasis bilaterally. Pleura: No effusion. No pneumothorax. Heart: The heart is dilated. coronary artery calcifications are seen. Aorta: Thoracic aorta non-dilated. Bones: Unremarkable for age. Tubes, Catheters, and Lines: None. Soft tissues: Unremarkable. ABDOMEN and PELVIS: Exam somewhat limited by motion. Liver: Normal size. Normal density. Stable hemangioma right lobe. No suspicious measurable mass. Portal, Superior Mesenteric, and Splenic Veins: Unremarkable. Gallbladder and Biliary Tract: No radiodense calculus. No biliary dilatation. Pancreas: Normal density, no abnormal calcifications or inflammatory process. Spleen: Normal. Adrenals: No masses seen. Kidneys: Normal size, contour and axis. Small nonobstructing stones each kidney.. No obstructive uro jermaine. No masses seen. Vasculature: Abdominal aorta non-dilated. Bowel: No obstruction or bowel wall thickening. Appendix is unremarkable. Increased quantity of sto ol. Peritoneal Cavity: No ascites, collection or mesenteric inflammatory response. Lymph Nodes: Within normal limits. Soft Tissues: Unremarkable. Bladder: Mildly distended. Mild wall thickening. Gross wall thickening. Reproductive Organs: Enlarged prostate. Bones: Scoliosis and degenerative changes. IMPRESSION: 1. No evidence of pulmonary embolism. Left lower lobe pneumonia. Ground-glass opacities are also see n in the right upper lobe. 2. No acute abdominal or pelvic process. RADIATION DOSE DELIVERED: Total DLP DATA REPOSITORY: All CT scans at this facility are submitted to the National Radiology Data Registry (NRDR) Dose Index Registry (DIR) with the [employer] (ACR). RADIATION OPTIMIZATION: All CT scans at this facility use at least one of these dose optimization te chniques: automated exposure control; mA and/or kV adjustment per patient size (includes targeted exa ms where dose is matched to clinical indication); or iterative reconstruction.
[2023-08-07] MEDS: cefTRIAXone 2 GM/50 ML BAG IVPB (13:30)
[2023-08-07] MEDS: Normal Saline Flush 10 ML SYR IVP ×2 (14:05→21:08)
[2023-08-07] MEDS: Normal Saline - Diluent 50 ML VIAL IJ (14:06)
[2023-08-07] MEDS: Omnipaque 350 MG/ML 100 ML BTL IJ (14:07)
[2023-08-07] MEDS: levETIRAcetam 1,000 MG in Normal Saline 100 ML 400 MG IVPB (14:35)
[2023-08-07] MEDS: VANCOMYCIN/WATER (PEG) 1 GM/200 ML BAG IV (14:35)
--- NOTE | 2023-08-07 14:39 | DI.VRAD_ITS ---
PROCEDURE INFORMATION: Exam: CTA Chest With Contrast CTA Abdomen With Contrast Exam date and time: 08/07/2023 2:05 PM Age: 88 years old Clinical indication: Fever TECHNIQUE: Imaging protocol: Computed tomographic angiography of the chest with contrast. Exam focused on the arteries. Computed tomographic angiography of the abdomen with contrast. Exam focused on the arteries. 3D rendering (Not supervised by radiologist): MIP and/or 3D reconstructed images were created by the technologist. Contrast material: OMNIPAQUE 350; Contrast volume: 100 ml; Contrast route: INTRAVENOUS (IV); COMPARISON: CT CHEST PE ABD PELVIS W 03/26/2023 10:55 AM FINDINGS: VASCULATURE: Pulmonary arteries: Normal. No pulmonary emboli. Aorta: No aortic aneurysm. No aortic dissection. Celiac trunk and mesenteric arteries: Calcified atheromas at the origin of the celiac artery and superior mesenteric artery causing mild stenosis. Renal arteries: Calcified atheromas at the origin of the bilateral renal arteries causing mild stenosis. CHEST: Lungs: Fibrotic changes in bilateral lung apices. There are left lower lobe infiltrates. Ground-glass opacities in the right upper lobe. Pleural spaces: Trace bilateral pleural effusions. Heart: Unremarkable. No cardiomegaly. No pericardial effusion. Diaphragm: Moderate hiatal hernia. ABDOMEN AND PELVIS: Liver: Hypodense lesion in segment 5 of the liver measuring 1.8 cm, representing hemangioma. No other liver lesion. Gallbladder and bile ducts: Unremarkable. No calcified stones. No ductal dilation. Pancreas: Unremarkable. No mass. No ductal dilation. Spleen: Unremarkable. No splenomegaly. Adrenal glands: Unremarkable. No mass. Kidneys and ureters: 4 mm nonobstructing stone in the interpolar region of the right kidney. Hydronephrosis on either side. Stomach and bowel: Diverticulosis of the sigmoid colon. Intraperitoneal space: Unremarkable. No free air. No significant fluid collection. Reproductive: Prostate gland calcifications. Lymph nodes: Unremarkable. No enlarged lymph nodes. Bones/joints: Curvature of the lumbar spine convex to the right. Mild degenerative disease of bilateral hip joints. Mild degenerative disease of the symphysis pubis. Demineralization visualized bones. Multilevel moderate to severe narrowing of the disc spaces with anterior and posterior osteophytes causing [id number] bony canal narrowing at L2-L3 and L3-L4 levels. Soft tissues: Bilateral fat containing inguinal hernias. IMPRESSION: 1. No pulmonary embolism. 2. Left lower lobe pneumonia. 3. No acute intra-abdominal process. Dictated and Authenticated by: Ruel Garcia MD. Ordering:VICTOR MANUEL Jewell MD
[2023-08-07] MEDS: DOXYCYCLINE 100 MG in Normal Saline 100 ML IVPB (15:26)
[2023-08-07 16:00] LABS: Troponin I 148 ng/L (< or =60)
--- NOTE | 2023-08-07 16:00 | RT.EKG_ITS ---
APPROVED REPORT Exam: Resting ECG Reason for Exam: elevated troponin Patient Location: E HR:63 bpm ECG Measurements Heart Rate 63 AXIS SD 158 P 61 QRSd 108 QRS -48 QT 448 T 8 QTc 459 Conclusion Sinus rhythm...normal P axis, V-rate 60- 99 Left anterior fascicular block...axis(240,-40), init forces inf Anteroseptal infarct, old...Q >40mS, V1-V2
--- NOTE | 2023-08-07 16:41 | NUR.NOTE ---
Nursing Note: Called pts and let her know pt is going to room 229.
--- NOTE | 2023-08-07 18:13 | HPE_ITS ---
Date of service: 08/07/23 Time of Service: 18:13 Assessment and Plan Assessment and plan (1) Seizure: Status: Acute Assessment and plan: Likely triggered but acute infection Adherence is also a intermediate concern, but he had been without seizures more than a year on valproate and lacosamide valproate level therapeutic continue current medication Dr. Lynne discussed LP with patient and given fever, but he declined. consider teleneuro consult (2) Pneumonia: Status: Acute Assessment and plan: Seen on CT, presumed cause of fever and possible trigger of the seizure. Minimally symptomatic but clearly active wheezing and cough. Started on ceftriaxone and doxycycline, will continue this. Blood cultures pending. Sputum culture if he starts coughing up sputum. (3) COPD with exacerbation: Status: Acute Assessment and plan: Wheezing and hypoxic, add steroids and nebulized bronchodilator (4) Elevated troponin: Status: Acute Assessment and plan: In setting of a seizure with known CAD and uncertain adherence to his medication. Most c/w type 2 ischemia related to seizure. Continue statin, ASA. He is also anticoagulated. Follow troponins until trending down. He did have a breif episode of low blood pressure in the ED, but no signs currently of CHF or hemodynamic instability (5) Obstructive sleep apnea: Status: Chronic Assessment and plan: home bipap (6) Depression, recurrent: Status: Chronic Assessment and plan: A/w dementia as below. 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 Continue outpatient treatment. (8) Benign prostatic hyperplasia: Status: Chronic Assessment and plan: continue tamsulosin. (9) Congestive heart failure: Status: Acute Assessment and plan: H/o preserved LVEF on echocardiogram within the last year. No active CHF currently. Qualifiers: Heart failure chronicity: acute on chronic Heart failure type: d iastolic Qualified Code(s): I50.33 - Acute on chronic diastolic (congestive) heart failure (10) Paroxysmal atrial fibrillation: Assessment and plan: Currently in sinus rhythm, continue apixaban and metoprolol (11) Hypomagnesemia: Status: Acute Assessment and plan: replaced in the ED, follow in am History of Present Illness History of Present Illness Chief Complaint: seizure, fever Narrative: 88 yo M with history of CAD, HFpEF, cognitive impairment a/w frontotemporal dementia, and seizure disorder presenting after a generalized seizure witnessed by his at his home. Seizure occurred about 8am. describes tonic/clonic activity, more dramatic than his previous seizures. He was unresponsive for a few minutes after the seizure. When EMS arrived, he was febrile and given acetaminophen. Per , he has not felt well for 2 days or so and did not take his medication last night. Patient has no complaints now, does not remember seizure. History is limited due to his mental status. Review of Systems All systems reviewed & are unremarkable except as noted in HPI and below and Unobtainable due to mental condition (He responds to ROS questions, but unclear that he is processing) Constitutional Constitutional: Denies headache(s) ENT Ears, Nose, Mouth, and Throat: Denies headache(s), Denies nasal congestion, Denies nasal discharge and Denies sore throat Cardiovascular Cardiovascular: Denies chest pain, Denies lightheadedness and Reports dyspnea (denies SOB but has oxygen) Respiratory Respiratory: Reports cough (denies cough but has intermittent cough, wet sounding), Denies hemoptysis and Reports dyspnea (denies SOB but has oxygen) Neurologic Neurologic: Denies headache(s) and Denies localized weakness PFSH All Active Problems COPD with exacerbation (Acute) Hypomagnesemia (Acute) Pneumonia (Acute) Noncompliance with medications (Acute) Elevated troponin (Acute) Seizure (Acute) Onychomycosis (Acute) Obstructive sleep apnea (Chronic) Rosacea (Acute) 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) Pre-diabetes (Acute) Lung nodule (Acute) Lumbar spinal stenosis (Acute) Hyperlipidemia (Acute) GERD (gastroesophageal reflux disease) (Chronic) Depression, recurrent (Chronic) Dementia with behavioral disturbance (Acute) Cognitive changes (Acute) COAG (chronic open-angle glaucoma) (Acute) Status post cataract extraction of both eyes with insertion of intraocular lens (Acute) Benign prostatic hyperplasia (Chronic) Basal cell carcinoma of nose (Acute) ASCVD (arteriosclerotic cardiovascular disease) (Acute) Anxiety (Chronic) Congestive heart failure (Acute) Hx of falling (Acute) Concern about end of life (Acute) Pulmonary embolism associated with COVID-19 (Acute) COPD (chronic obstructive pulmonary disease) (Chronic) Breakthrough seizure (Acute) Medical History Paroxysmal atrial fibrillation Primary cutaneous marginal zone B-cell lymphoma Cataract Skin cancer of anterior chest Pulmonary embolism without acute cor pulmonale Neck pain Hx of colonic polyp Broken arm Palliative care patient CAD (coronary artery disease) Seizure disorder H/O non-insulin dependent diabetes mellitus UTI (urinary tract infection) Myocardial infarction Hx of hyperlipidemia Dementia Surgical History History of tonsillectomy History of coronary artery stent placement Family History Maternal Grandfather Leukemia Mother Alcohol use disorder Anxiety Cancer Social History Smoking/Tobacco Use Status: Former Tobacco Use Tobacco: How many years used: 40 Second Hand Exposure: Yes Smoking risk assessment performed?: Yes Alcohol Intake: current Alcohol Intake frequency: holidays/special occasions only Drug use: Never Substance use type: does not use Adopted: No Foster care: No Household members: spouse Housing: house Number of Children: 4 Communication Needs: Hard of Hearing and Corrective Lenses Education Level: high school Do you need help understanding health information?: Often current occupation: retired Pets and animals: No Sexually active: No Do you think of yourself as: straight/heterosexual Current gender identity: male What is your relationship status?: How often do you talk on the phone with friends or family?: three or more times per week How often do you get together with friends or relatives?: decline to answer Do you belong to any clubs or organized social groups?: no Panel score (0-1 are the most socially isolated patients): 2 What type of physical activity do you participate in: additional Details: is in PT twice a week Duration: 15-30 minutes/day Frequency: 5-6 times per week Meenu/Anabaptism: Denominational Special meenu needs: No Seatbelt use: always Helmet use: No Drive intox or ride w/intox driver manager: No Do you feel safe at home: Yes Do you feel safe in your relationship?: Yes Meds Allergies and Home Medications Allergies Allergy/AdvReac Type Severity Reaction Status Date / Time oxycodone [From Percocet] AdvReac Other (See Unverified 08/07/23 10:49 Comment) Penicillins AdvReac Other (See Unverified 08/07/23 10:49 Comment) Home Medications Medication Instructions Recorded Confirmed Type albuterol sulfate 90 mcg/actuation 2 puff inhalation Q4H PRN PRN 04/27/16 08/07/23 History aerosol inhaler (Proventil HFA) nitroglycerin 0.4 mg sublingual 0.4 mg sublingual Q5 MIN PRN X3 PRN 04/27/16 08/07/23 History tablet (Nitrostat) pantoprazole 40 mg tablet,delayed 40 mg PO DAILY 04/27/16 08/07/23 History release aspirin 81 mg tablet,delayed 81 mg PO DAILY 12/18/19 08/07/23 History release citalopram 10 mg tablet 20 mg PO DAILY 02/20/21 08/07/23 History therapeutic multivitamin 1 tab PO DAILY 02/20/21 08/07/23 History donepezil 10 mg tablet 10 mg PO HS 11/26/21 08/07/23 History melatonin 10 mg disintegrating 15 mg PO HS PRN 11/26/21 08/07/23 History tablet tamsulosin 0.4 mg capsule 0.4 mg PO DAILY 11/26/21 08/07/23 History memantine 5 mg tablet 5 mg PO QHS 06/02/22 08/07/23 History lacosamide 100 mg tablet 100 mg PO BID #60 tabs 06/04/22 08/07/23 Rx ipratropium 20 mcg-albuterol 100 1 puff inhalation Q6H 08/29/22 08/07/23 History mcg/actuation mist for inhalation (Combivent Respimat) ketoconazole 2 % topical cream 1 applic topical BID PRN 08/29/22 08/07/23 History divalproex 500 mg tablet,extended 500 mg PO BID 09/01/22 08/07/23 History release 24 hr (Depakote ER) acetaminophen 500 mg tablet 1,000 mg (2 x 500 mg) PO Q8H PRN 02/18/23 08/07/23 Rx PRN #30 tabs apixaban 5 mg tablet 5 mg PO BID #60 tabs 02/18/23 08/07/23 Rx metoprolol succinate 25 mg 12.5 mg (1/2 x 25 mg) PO DAILY #15 02/18/23 08/07/23 Rx tablet,extended release 24 hr tabs (Toprol XL) atorvastatin 40 mg tablet 40 mg PO DAILY 04/02/23 08/07/23 History terbinafine HCl 250 mg tablet 250 mg PO DAILY #30 tabs 07/01/23 08/07/23 Rx Exam Narrative Exam Narrative: GEN: Alert and orient to self. Unable to given any history. Pleasant and cooperative, follows instructions with exam. No acute distress at rest. O2 via NC HEENT: Head atraumatic. Conjunctiva clear, no icterus. PEERL, EOMI. no rhinorrhea. MMM, OP benign. Neck is supple with normal ROM without any pain, no masses or lymphadenopathy, trachea midline LUNGS: Mild increase WOB with sitting up, diffuse wheezing on exam and prolonged expiration. No rales. CV: RRR with no murmurs, gallops, or rubs. ABD: +BS, soft, NT/ND EXT: no cyanosis, clubbing, or edema MSK: No joint redness or swelling NEURO: CN 2-12 grossly intact, pupils 2mm perry and he seems sensitive to light on exam, squinting. Normal movement of 4 extremities. Normal speech and coordination. DTRs 3+ and symmetrical perry patella. SKIN: No rashes or open wounds. PSYCH: normal mood and affect. poor memory. Results Imaging Abdomen CT scan report/results: report reviewed (no acute intraabdominal process) CT scan - chest: report reviewed (1. No pulmonary embolism. 2. Left lower lobe pneumonia. ) EKG: report reviewed and image reviewed (10:29am, repeat 16:03: NSR, left axis, nl intervals, lateral T-waves flat, no STEMI, no significant change) Imaging Studies: head CT: No acute intracranial process. Labs 08/07/23 10:30 08/07/23 10:30 Labs: Laboratory Results - last 24 hr 08/07/23 08/07/23 08/07/23 10:30 10:50 11:43 WBC 3.79 L RBC 4.37 Hgb 13.4 L Hct 39.8 L MCV 91 MCH 30.7 MCHC 33.7 RDW 14.1 Plt Count 122 L MPV 10.0 Immature Gran % 2.1 Neutrophils % 71.6 Lymphocytes % 8.4 Monocytes % 15.0 Eosinophils % 2.6 Basophils % 0.3 Nucleated RBC % 0.0 Absolute Neutrophils 2.71 Absolute Lymphocytes 0.32 L Absolute Monocytes 0.57 Absolute Eosinophils 0.10 Absolute Basophils 0.01 VBG pH 7.45 H VBG pCO2 39 L VBG pO2 41 VBG HCO3 27 VBG Total CO2 24 VBG O2 Saturation 76 VBG Base Excess 3 VBG Lactate 2.3 H* Sodium 142 Potassium 4.0 Chloride 105 Carbon Dioxide 27.9 Anion Gap 9.1 BUN 15 Creatinine 1.2 Est GFR (CKD-EPI 2020) 58.53 Glucose 125 H Calcium 8.3 L Magnesium 1.7 L Total Bilirubin 0.7 AST 27 ALT 29 Alkaline Phosphatase 83 Troponin I 82 H* Total Protein 6.3 L Albumin 3.5 Procalcitonin 1.1 TSH 3.33 Urine Color Yellow Urine Clarity Clear Urine pH 8.5 H Ur Specific [place] 1.020 Urine Protein Trace Urine Ketones Trace H Urine Blood Trace-intact H Urine Nitrite Negative Urine Bilirubin Negative Urine Urobilinogen 2.0 H Ur Leukocyte Esterase Negative Urine RBC 5-10 H Urine WBC 0-2 Ur Epithelial Cells Negative Urine Crystals Negative Urine Bacteria Negative Urine Casts Negative Urine Mucus Negative Ur Culture Indicated? No Urine Glucose Negative Valproic Acid 58.2 COVID-19 Source Nasopharynx SARS-CoV-2 (PCR) Negative Influenza Type A (PCR) Negative Influenza Type B (PCR) Negative RSV (PCR) Negative 08/07/23 15:27 WBC RBC Hgb Hct MCV MCH MCHC RDW Plt Count MPV Immature Gran % Neutrophils % Lymphocytes % Monocytes % Eosinophils % Basophils % Nucleated RBC % Absolute Neutrophils Absolute Lymphocytes Absolute Monocytes Absolute Eosinophils Absolute Basophils VBG pH VBG pCO2 VBG pO2 VBG HCO3 VBG Total CO2 VBG O2 Saturation VBG Base Excess VBG Lactate Sodium Potassium Chloride Carbon Dioxide Anion Gap BUN Creatinine Est GFR (CKD-EPI 2020) Glucose Calcium Magnesium Total Bilirubin AST ALT Alkaline Phosphatase Troponin I 148 H* Total Protein Albumin Procalcitonin TSH Urine Color Urine Clarity Urine pH Ur Specific [place] Urine Protein Urine Ketones Urine Blood Urine Nitrite Urine Bilirubin Urine Urobilinogen Ur Leukocyte Esterase Urine RBC Urine WBC Ur Epithelial Cells Urine Crystals Urine Bacteria Urine Casts Urine Mucus Ur Culture Indicated? Urine Glucose Valproic Acid COVID-19 Source SARS-CoV-2 (PCR) Influenza Type A (PCR) Influenza Type B (PCR) RSV (PCR) Last Vital Signs Temp 36.4 C L 08/07/23 17:01 Pulse 67 08/07/23 17:01 Resp 18 08/07/23 17:01 BP 115/58 L 08/07/23 17:01 Pulse Ox 96 08/07/23 17:26 Time Spent Time spent with Patient: 55-74 minutes Time was spent: preparing to see the patient(eg.review tests), obtaining and/or reviewing separately otained hiistory, ordering medications,tests, procedures, referring, communicating with other health director of managed care, indepentently interpreting results and counseling the patient
[2023-08-07] MEDS: Memantine 5 MG TAB PO (21:08)
[2023-08-07] MEDS: Donepezil 5 MG TAB 10 MG PO (21:08)
[2023-08-07] MEDS: Divalproex Sodium 500 MG TAB.ER.24H PO (21:08)
[2023-08-07] MEDS: Apixaban 5 MG TAB PO (21:08)
[2023-08-07] MEDS: methylPREDNISolone SUCC 125 MG VIAL 80 MG IVP (21:09)
[2023-08-07] MEDS: Lacosamide 100 MG TAB PO (21:19)
[2023-08-07] MEDS: Albuterol/Ipratropium 3 ML UPD VIAL UPD (21:33)
[2023-08-07] MEDS: Ipratropium/Albuterol 4 GM 120 PUFF INH IH (21:34)
--- NOTE | 2023-08-07 21:38 | RESPIRATORY ---
RT seen pt. for JAZMÍN diagnosis. Pt. stated that he had CPAP but then later on pt. was told to not use it. Since then pt. has been sleeping without CPAP machine.
[2023-08-07 21:43] LABS: Troponin I 82 ng/L (< or =60)
[2023-08-08] VITALS (8 sets, daily range): BP systolic 103–130; BP diastolic 54–64; PULSE 60–95; RESP 2–19; TEMP 36–36.5; O2SAT 92–96
[2023-08-08] MEDS: Albuterol/Ipratropium 3 ML UPD VIAL UPD (01:40)
[2023-08-08] MEDS: Ipratropium/Albuterol 4 GM 120 PUFF INH IH ×2 (01:42→09:20)
[2023-08-08] MEDS: methylPREDNISolone SUCC 125 MG VIAL 80 MG IVP ×2 (04:47→12:38)
[2023-08-08] MEDS: DOXYCYCLINE 100 MG in Normal Saline 100 ML IVPB (06:22)
[2023-08-08 06:59] LABS: Abs Immature Grans 0.07 10^3/uL (0.0-0.06); Absolute Basophil Count 0.01 10^3/uL (0.0-0.2); Absolute Eosinophil Count 0.01 10^3/uL (0.0-0.7); Absolute Lymphocyte Count 0.53 10^3/uL (1.2-3.4); Absolute Monocyte Count 0.76 10^3/uL (0.1-0.8); Absolute Neutrophil Count 7.43 10^3/uL (1.2-6.7); Basophils % 0.1 %; Eosinophils % 0.1 %; HCT 35.1 % (40.0-50.0); HGB 11.8 g/dL (13.5-17.5); Immature Grans % 0.8 %; MCHC 33.6 % (32.0-36.0); MCV 92 fL (80-95); MPV 10.6 fL (8.0-11.0); Monocytes % 8.6 %; Neutrophils % 84.4 %; Platelet Count 117 10^3/uL (130-400); RBC 3.81 10^6/uL (4.36-5.78); RDW 14.6 % (11.8-14.1); RDW-SD 48.9 fL; WBC 8.81 10^3/uL (4.4-10.8)
[2023-08-08 07:11] LABS: Anion Gap 12.1 mmol/L (3-11); BUN 18 mg/dL (7-18); CO2 24.9 mmol/L (21.0-32.0); CREATININE 1.3 mg/dL (0.70-1.30); Calcium 8.1 mg/dL (8.5-10.1); Chloride 104 mmol/L (98-107); Estimated GFR 53.17 (mL/min/1.73m2); Glucose 163 mg/dL (74-106); Magnesium 1.8 mg/dL (1.8-2.4); Potassium 4.1 mmol/L (3.5-5.1); Sodium 141 mmol/L (136-145)
[2023-08-08] MEDS: Metoprolol CR 25 MG TABCR 12.5 MG PO (08:10)
[2023-08-08] MEDS: Lacosamide 100 MG TAB PO (08:11)
[2023-08-08] MEDS: Citalopram 10 MG TAB 20 MG PO (08:11)
[2023-08-08] MEDS: Divalproex Sodium 500 MG TAB.ER.24H PO (08:11)
[2023-08-08] MEDS: Apixaban 5 MG TAB PO (08:11)
[2023-08-08] MEDS: Aspirin E.C. 81 MG TABEC PO (08:11)
[2023-08-08] MEDS: Multivitamin TAB 1 TAB PO (08:12)
[2023-08-08] MEDS: Atorvastatin 40 MG TAB PO (08:12)
[2023-08-08] MEDS: Pantoprazole 40 MG TABCR PO (08:12)
[2023-08-08] MEDS: Normal Saline Flush 10 ML SYR IVP (08:13)
[2023-08-08] MEDS: Tamsulosin 0.4 MG CAPCR PO (09:27)
--- NOTE | 2023-08-08 11:15 | W.PM.DS.N ---
Date of service: 08/08/23 Time of Service: 11:15 DS: Diagnosis Discharge Diagnosis (1) Seizure: Status: Acute (2) Pneumonia: Status: Acute (3) COPD with exacerbation: Status: Acute (4) Elevated troponin: Status: Acute (5) Obstructive sleep apnea: Status: Chronic (6) Depression, recurrent: Status: Chronic (7) Dementia with behavioral disturbance: Status: Acute (8) Benign prostatic hyperplasia: Status: Chronic (9) Congestive heart failure: Status: Acute (10) Paroxysmal atrial fibrillation: (11) Hypomagnesemia: Status: Acute Discharge Plan Disposition Patient Disposition: Home Condition: Stable Discharge Details Reason For Visit: LLL PNA, Seizure Admit Date/Time: 08/07/23 15:40 Admit Provider: Shun Hendricks Attending Provider: Shun Hendricks [facility] Hospital Course: 88 yo M with history of CAD, HFpEF, cognitive impairment a/w frontotemporal dementia, and seizure disorder presenting after a generalized seizure witnessed by his at his home. Seizure occurred about 8am. describes tonic/clonic activity, more dramatic than his previous seizures. He was unresponsive for a few minutes after the seizure. When EMS arrived, he was febrile and given acetaminophen. Per , he has not felt well for 2 days or so and did not take his medication last night. Workup in the emergency department concerning for community-acquired pneumonia. He was started on treatment with ceftriaxone and doxycycline. No further symptoms. He had no oxygen requirements. He is eating and drinking and feels at his baseline. He has been safely really ambulated. Levels for his depakote have been sent and are pending at time of discharge. stable to home discharge with outpatient follow up He will complete 5 more days of antibiotics to complete a 7 day course. no new services discussed with DR Hendricks Home Meds and New Rx's Prescriptions: New cefpodoxime 200 mg tablet 200 mg PO BID Qty: 10 0RF Rx Instructions: must administer with a meal/food doxycycline hyclate 100 mg capsule 100 mg PO BID Qty: 10 0RF Continued terbinafine HCl 250 mg tablet 250 mg PO DAILY Qty: 30 0RF citalopram 10 mg tablet 20 mg PO DAILY therapeutic multivitamin Tablet 1 tab PO DAILY donepezil 10 mg tablet 10 mg PO HS melatonin 10 mg Tablet,Disintegrating 15 mg PO HS PRN Rx Instructions: take one and one half tablets = 15mg at bedtime tamsulosin 0.4 mg Capsule 0.4 mg PO DAILY memantine 5 mg tablet 5 mg PO QHS Patient Comments: TAKE 1 TABLET BY MOUTH NIGHTLY ketoconazole 2 % cream 1 applic TOPICAL BID PRN Patient Comments: APPLY CREAM TOPICALLY TO THE RASH ON THE SCALP AND AROUND HAIRLINE TWICE DAILY NEEDED Combivent Respimat 20-100 mcg/actuation Mist 1 puff INHALATION Q6H Hold Instructions: Pt Stopped/Never Started divalproex [Depakote ER] 500 mg Tablet Extended Release 24 Hr 500 mg PO BID pantoprazole 40 MG tablet,delayed release (DR/EC) 40 mg PO DAILY nitroglycerin [Nitrostat] 0.4 MG tablet, sublingual 0.4 mg Sublingual Q5 MIN PRN X3 PRN albuterol sulfate [Proventil HFA] 6.7 GM HFA aerosol inhaler 2 puff Inhalation Q4H PRN PRN Hold Instructions: Pt Stopped/Never Started aspirin 81 mg Tablet,Delayed Release (Dr/Ec) 81 mg PO DAILY lacosamide 100 mg tablet 100 mg PO BID Qty: 60 0RF acetaminophen 500 mg Tablet 1,000 mg PO Q8H PRN PRNQty: 30 0RF metoprolol succinate [Toprol XL] 25 mg tablet extended release 24 hr 12.5 mg PO DAILY Qty: 15 0RF apixaban 5 mg tablet 5 mg PO BID Qty: 60 0RF atorvastatin 40 mg tablet 40 mg PO DAILY Patient Comments: TAKE 1 TABLET BY MOUTH ONCE DAILY Discharge Instructions Instructions: Community Acquired Pneumonia (DC), Recurrent Seizures in Adults (DC) Additional Instructions: continue usual medications as previously directed you have been prescribed 5 days of antibiotics to take for pneumonia, complete the course even if you feel better drink 6-8 glasses of water daily to stay well hydrated. Stand Alone Forms: Nursing Discharge Form Referrals: García Scruggs DO [Primary Care Provider] - (Please call on Tuesday for a hospital follow up within 10-14 days) Татьяна Fox MD [ [facility] STAFF PHYSICIAN] - (Please call on Tuesday to make an appointment. ) Activity:: Activity as Tolerated Equipment/Supplies:: No Equipment Needed Diet:: As Tolerated Discharge Orders Discharge Orders: Discharge Order (Routine); Ordered 08/08/23 Ordered By: Jami Rueda Discharge Data Discharge Date/Time-TO BE ENTERED AT DEPARTURE: 08/08/23 14:23 DS: Summary Time Spent with Patient providing and/or coordinating discharge services: Greater than 30 minutes Status at Discharge Functional status at discharge: uses cane/walker Overall status at discharge: patient is progressing back to baseline Mental Status: mental status grossly normal Speech and Movement: speech and movement normal Mood: congruent mood Affect: normal affect Quality:SDOH Health Related Social Needs: No Data to Display Exam Const General: cooperative, comfortable and no acute distress Nutritional Appearance: average body habitus Orientation: alert, awake, oriented to person and oriented to place (poor historian) HENMT Head: normal to inspection, normocephalic and atraumatic Mouth: oral mucosae normal Eyes General: appearance normal, both eyes and all related structures Neck Neck: normal visual inspection, full ROM and no JVD Chest Chest: normal inspection of the chest Resp Effort & Inspection: normal respiratory effort Auscultation: clear to auscultation bilaterally Cardio Rate: regular rate Rhythm: regular rhythm GI Inspection: normal to inspection Palpation: soft Skin General skin exam: no rashes or lesions noted Neuro General: patient alert, patient awake and no focal motor deficits Extrem General: normal to inspection, full ROM and no pedal edema Psych Mental Status: mental status grossly normal Speech and Movement: speech and movement normal Mood: congruent mood Affect: normal affect DS: Data Vitals/I&O Vitals and I&O: Vital Signs Temperature 36.5 C 08/08/23 07:47 Temperature Source Tympanic 08/08/23 07:47 Pulse 60 08/08/23 07:47 Pulse Rhythm Regular 08/08/23 02:09 Pulse 63 08/07/23 16:10 Respiratory Rate 19 08/08/23 07:47 Respiratory Effort Normal, Non-Labored 08/08/23 02:09 Respiratory Depth Normal 08/08/23 02:09 Respiratory Pattern Normal 08/08/23 02:09 Blood Pressure 130/60 08/08/23 07:47 Blood Pressure Mean 71 08/07/23 16:01 Blood Pressure Position Supine 08/07/23 10:17 Pulse Oximetry 93 08/08/23 09:21 Oxygen Delivery Method Room Air 08/08/23 09:21 Oxygen Flow Rate 0 05/27/24 09:21 Pain Level 0 08/08/23 07:47 Comment [employer] 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[employer]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 Notified 08/08/23 03:01 Intake & Output 08/07/23 08/07/23 08/08/23 11:59 23:59 11:59 Intake Total 520 / 980 460 / 980 570 / 570 Output Total 250 / 250 Balance 520 / 980 460 / 980 320 / 320 Weight 72.212 kg Intake: IV 520 / 980 460 / 980 200 / 200 Oral 370 / 370 Output: Urine 250 / 250 Other: Urine Color Yellow Yellow Urine Appearance Clear Clear Urine Odor Normal Comment dry at this time pt was dry Stool Size Large Stool Characteristics Formed Brown Voiding Methods Diaper Diaper Incontinent Incontinent Data Completed and Pending Labs on day of discharge: Labs from last 24 hours 08/08/23 08/07/23 08/07/23 05:55 21:05 15:27 WBC 8.81 RBC 3.81 L Hgb 11.8 L Hct 35.1 L MCV 92 MCH 31.0 MCHC 33.6 RDW 14.6 H Plt Count 117 L MPV 10.6 Immature Gran % 0.8 Neutrophils % 84.4 Lymphocytes % 6.0 Monocytes % 8.6 Eosinophils % 0.1 Basophils % 0.1 Nucleated RBC % 0.0 Absolute Neutrophils 7.43 H Absolute Lymphocytes 0.53 L Absolute Monocytes 0.76 Absolute Eosinophils 0.01 Absolute Basophils 0.01 Sodium 141 Potassium 4.1 Chloride 104 Carbon Dioxide 24.9 Anion Gap 12.1 H BUN 18 Creatinine 1.3 Est GFR (CKD-EPI 2020) 53.17 Glucose 163 H Calcium 8.1 L Magnesium 1.8 Troponin I 82 H* 148 H* Procalcitonin Urine Color Urine Clarity Urine pH Ur Specific Etna Urine Protein Urine Ketones Urine Blood Urine Nitrite Urine Bilirubin Urine Urobilinogen Ur Leukocyte Esterase Urine RBC Urine WBC Ur Epithelial Cells Urine Crystals Urine Bacteria Urine Casts Urine Mucus Ur Culture Indicated? Urine Glucose Valproic Acid B. divergens/MO-1 PCR Babesia duncani (PCR) Babesia microti DNA PCR Lyme Disease Antibody COVID-19 Source SARS-CoV-2 (PCR) E.chaffeensis DNA (PCR) E.ewingii/canis DNA PCR E.muris eauclairensis (PCR) Influenza Type A (PCR) Influenza Type B (PCR) RSV (PCR) A. phagocytophilum (PCR) Blood B. miyamotoi (PCR) 08/07/23 08/07/23 08/07/23 11:43 10:50 10:30 WBC RBC Hgb Hct MCV MCH MCHC RDW Plt Count MPV Immature Gran % Neutrophils % Lymphocytes % Monocytes % Eosinophils % Basophils % Nucleated RBC % Absolute Neutrophils Absolute Lymphocytes Absolute Monocytes Absolute Eosinophils Absolute Basophils Sodium Potassium Chloride Carbon Dioxide Anion Gap BUN Creatinine Est GFR (CKD-EPI 2020) Glucose Calcium Magnesium Troponin I Procalcitonin 1.1 Urine Color Yellow Urine Clarity Clear Urine pH 8.5 H Ur Specific Etna 1.020 Urine Protein Trace Urine Ketones Trace H Urine Blood Trace-intact H Urine Nitrite Negative Urine Bilirubin Negative Urine Urobilinogen 2.0 H Ur Leukocyte Esterase Negative Urine RBC 5-10 H Urine WBC 0-2 Ur Epithelial Cells Negative Urine Crystals Negative Urine Bacteria Negative Urine Casts Negative Urine Mucus Negative Ur Culture Indicated? No Urine Glucose Negative Valproic Acid 58.2 B. divergens/MO-1 PCR Pending Babesia duncani (PCR) Pending Babesia microti DNA PCR Pending Lyme Disease Antibody Pending COVID-19 Source Nasopharynx SARS-CoV-2 (PCR) Negative E.chaffeensis DNA (PCR) Pending E.ewingii/canis DNA PCR Pending E.muris eauclairensis (PCR) Pending Influenza Type A (PCR) Negative Influenza Type B (PCR) Negative RSV (PCR) Negative A. phagocytophilum (PCR) Pending Blood B. 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) Pre-diabetes (Acute) Lung nodule (Acute) Lumbar spinal stenosis (Acute) Hyperlipidemia (Acute) GERD (gastroesophageal reflux disease) (Chronic) Depression, recurrent (Chronic) Dementia with behavioral disturbance (Acute) Cognitive changes (Acute) COAG (chronic open-angle glaucoma) (Acute) Status post cataract extraction of both eyes with insertion of intraocular lens (Acute) Benign prostatic hyperplasia (Chronic) Basal cell carcinoma of nose (Acute) ASCVD (arteriosclerotic cardiovascular disease) (Acute) Anxiety (Chronic) Congestive heart failure (Acute) Hx of falling (Acute) Concern about end of life (Acute) Pulmonary embolism associated with COVID-19 (Acute) COPD (chronic obstructive pulmonary disease) (Chronic) Breakthrough seizure (Acute) Medical History Paroxysmal atrial fibrillation Primary cutaneous marginal zone B-cell lymphoma Cataract Skin cancer of anterior chest Pulmonary embolism without acute cor pulmonale Neck pain Hx of colonic polyp Broken arm Palliative care patient CAD (coronary artery disease) Seizure disorder H/O non-insulin dependent diabetes mellitus UTI (urinary tract infection) Myocardial infarction Hx of hyperlipidemia Dementia Surgical History History of tonsillectomy History of coronary artery stent placement Family History Maternal Grandfather Leukemia Mother Alcohol use disorder Anxiety Cancer Social History Smoking/Tobacco Use Status: Former Tobacco Use Tobacco: How many years used: 40 Second Hand Exposure: Yes Smoking risk assessment performed?: Yes Alcohol Intake: current Alcohol Intake frequency: holidays/special occasions only Drug use: Never Substance use type: does not use Adopted: No Foster care: No Household members: spouse Housing: house Number of Children: 4 Communication Needs: Hard of Hearing and Corrective Lenses Education Level: high school Do you need help understanding health information?: Often current occupation: retired Pets and animals: No Sexually active: No Do you think of yourself as: straight/heterosexual Current gender identity: male What is your relationship status?: How often do you talk on the phone with friends or family?: three or more times per week How often do you get together with friends or relatives?: decline to answer Do you belong to any clubs or organized social groups?: no Panel score (0-1 are the most socially isolated patients): 2 What type of physical activity do you participate in: additional Details: is in PT twice a week Duration: 15-30 minutes/day Frequency: 5-6 times per week Meenu/Tenriism: Restorationist Special meenu needs: No Seatbelt use: always Helmet use: No Drive intox or ride w/intox waste collection driver: No Do you feel safe at home: Yes Do you feel safe in your relationship?: Yes Time Spent with Patient Time Spent with Patient: >85 minutes Time was spent: preparing to see the patient(eg.review tests), obtaining and/or reviewing separately otained hiistory, ordering medications,tests, procedures, indepentently interpreting results and counseling the patient
[2023-08-10 10:28] LABS: Lyme Ab w Rflx to Lyme Confirm Negative (Negative)
[2023-08-12 00:35] LABS: Anaplasma phagocytophilum Negative (Negative); B. miyamotoi PCR Negative (Negative); Babesia divergens/MO-1 Negative (Negative); Babesia duncani Negative (Negative); Babesia microti Negative (Negative); Ehrlichia chaffeensis Negative (Negative); Ehrlichia ewingii/canis Negative (Negative); Ehrlichia muris eauclairensis Negative (Negative)
== END 2023-08-08 14:23 | disposition home or self-care (01) | DRG 100 ==
LOC: ER 15:45 → MS 16:52
PROVIDERS: Admitting Provider Family Medicine; Emergency Provider Student in an Organized Health Care Education/Training Program; PCP Family Medicine; Visit Provider Family Medicine
DX: G40.909 Epilepsy, unspecified, not intractable, without status epilepticus (principal); I50.33 Acute on chronic diastolic (congestive) heart failure; J18.9 Pneumonia, unspecified organism; J44.0 Chronic obstructive pulmonary disease with (acute) lower respiratory infection; J44.1 Chronic obstructive pulmonary disease with (acute) exacerbation; F33.8 Other recurrent depressive disorders; F02.818 Dementia in other diseases classified elsewhere, unspecified severity, with other behavioral disturbance; C34.31 Malignant neoplasm of lower lobe, right bronchus or lung; I25.10 Atherosclerotic heart disease of native coronary artery without angina pectoris; G31.09 Other frontotemporal neurocognitive disorder; R74.8 Abnormal levels of other serum enzymes; G47.33 Obstructive sleep apnea (adult) (pediatric); N40.0 Benign prostatic hyperplasia without lower urinary tract symptoms; I48.0 Paroxysmal atrial fibrillation; E83.42 Hypomagnesemia; Z91.148 Patient's other noncompliance with medication regimen for other reason; L71.9 Rosacea, unspecified; R73.03 Prediabetes; M48.061 Spinal stenosis, lumbar region without neurogenic claudication; K21.9 Gastro-esophageal reflux disease without esophagitis; E78.5 Hyperlipidemia, unspecified; Z86.711 Personal history of pulmonary embolism; Z91.81 History of falling; Z95.5 Presence of coronary angioplasty implant and graft
CPT/HCPCS: 00123; 36415; 36416; 71275; 74177; 80048; 80053; 82805; 82962; 84145; 87040; 87637; 87798; 93005; 94640; 96365; 96367; 99285; 70450; 71046; 80164; 81003; 81015; 83605; 83735; 84443; 84484; 85025; 86618; 93010; 93041; 94664; 94760; 99222; 99239; J0696; J1953; J2919; J3372; J3490; J7620

== ENCOUNTER 2023-11-23 12:56 | Emergency (ER) | payer MEDICARE, SELFPAY ==
[2023-11-23] VITALS (7 sets, daily range): BP systolic 89–169; BP diastolic 49–53; PULSE 64–71; RESP 14–16; TEMP 37.2; O2SAT 88–96
--- NOTE | 2023-11-23 13:00 | DI.CT_ITS ---
Exam(s) CT PELVIC WO CT LUMBAR SPINE WO EXAM: CT LUMBAR SPINE and pelvis WO CLINICAL HISTORY: fall 11/20, low back pain. TECHNIQUE: Imaging Protocol: Axial computed tomography images with coronal and sagittal reformatted images were created and reviewed. COMPARISON: CT CT CHEST PE ABD PELVIS W from 08/07/2023 FINDINGS: Bones: There is a comminuted fracture of the right sacral ala anteriorly. There is also cortical def ormity of the left sacral ala suspicious for nondisplaced fracture. These were not present on the pr ior examination. The sacroiliac joints are intact. There is osteopenia. The alignment of the spine is normal including the thoracolumbar junction. Age-appropriate degenerative changes are seen throu ghout the lumbar spine. There is a right convex lumbar scoliosis. Soft tissues: There is bilateral nephrolithiasis without evidence of obstructive uropathy. Atheroscl erotic calcification is present. No large disk herniations are identified. There is diffuse thickeni ng of the wall of the urinary bladder. This may be due to cystitis or chronic bladder outlet obstruc tion. There is an enlarged prostate gland. IMPRESSION: 1. New comminuted fracture involving the right sacral ala. Deformity of the left sacral ala suspicio us for nondisplaced fracture. 2. No acute fracture or subluxation is seen in the lumbar spine. 3. Osteopenia. 4. Incidental finding seen in the pelvis and abdomen as described above. RADIATION DOSE DELIVERED: Total DLP Total DLP DATA REPOSITORY: All CT scans at this facility are submitted to the National Radiology Data Registry (NRDR) Dose Index Registry (DIR) with the [employer] (ACR). RADIATION OPTIMIZATION: All CT scans at this facility use at least one of these dose optimization te chniques: automated exposure control; mA and/or kV adjustment per patient size (includes targeted exa ms where dose is matched to clinical indication); or iterative reconstruction.
--- NOTE | 2023-11-23 13:06 | ED.GENADUL_ITS ---
Discharge Plan Discharge Details Chief Complaint: Nk/Back Pain Clinical Impression: Fracture of sacrum Primary Care Provider: García Scruggs ED Provider: Lit Jackson Home Meds and New Rx's Prescriptions: No Action morphine concentrate 100 mg/5 mL (20 mg/mL) solution See Rx Instructions PO Q1H MDD 120 mg PRN (Reason: pain or dyspnea) Qty: 30 0RF Rx Instructions: 0.25-1.0 ml orally every 1 hour PRN; hospice lorazepam 0.5 mg tablet 0.5 mg PO Q4H PRN (Reason: anxiety) Qty: 7 3RF Rx Instructions: hospice citalopram 10 mg tablet 20 mg PO DAILY donepezil 10 mg tablet 10 mg PO HS melatonin 10 mg Tablet,Disintegrating 15 mg PO HS PRN Rx Instructions: take one and one half tablets = 15mg at bedtime tamsulosin 0.4 mg Capsule 0.4 mg PO DAILY memantine 5 mg tablet 5 mg PO QHS Patient Comments: TAKE 1 TABLET BY MOUTH NIGHTLY ketoconazole 2 % cream 1 applic TOPICAL BID PRN Patient Comments: APPLY CREAM TOPICALLY TO THE RASH ON THE SCALP AND AROUND HAIRLINE TWICE DAILY NEEDED Combivent Respimat 20-100 mcg/actuation Mist 1 puff INHALATION Q6H divalproex [Depakote ER] 500 mg Tablet Extended Release 24 Hr 500 mg PO BID pantoprazole 40 MG tablet,delayed release (DR/EC) 40 mg PO DAILY nitroglycerin [Nitrostat] 0.4 MG tablet, sublingual 0.4 mg Sublingual Q5 MIN PRN X3 PRN albuterol sulfate [Proventil HFA] 6.7 GM HFA aerosol inhaler 2 puff Inhalation Q4H PRN PRN lacosamide 100 mg tablet 100 mg PO BID Qty: 60 0RF acetaminophen 500 mg Tablet 1,000 mg PO Q8H PRN PRNQty: 30 0RF metoprolol succinate [Toprol XL] 25 mg tablet extended release 24 hr 12.5 mg PO DAILY Qty: 15 0RF apixaban 5 mg tablet 5 mg PO BID Qty: 60 0RF atorvastatin 40 mg tablet 40 mg PO DAILY Patient Comments: TAKE 1 TABLET BY MOUTH ONCE DAILY HPI General Date/Time Provider Initiated Documentation: 11/23/23 13:01 . HPI Narrative: 88 year-old male presents to ED today by EMS with a chief complaint of fall 2 days ago with low back pain, difficulty getting around and walking- patient has mobility issues at baseline and family is in process of obtaining hospice care. Quality described as R lower back pain, no radiation to sensory deficits, numbness, groin numbness, urinary retention, bowel incontinence. Severity is described as severe. Palliating factors include nothing specific. Provoking factors include nothing specific. Patient is anticoagulated on Eliquis. Related Data Home Medications ?Medication ?Instructions ?Recorded ?Confirmed albuterol sulfate 90 mcg/actuation 2 puff inhalation Q4H PRN PRN 04/27/16 11/23/23 aerosol inhaler (Proventil HFA) nitroglycerin 0.4 mg sublingual 0.4 mg sublingual Q5 MIN PRN X3 PRN 04/27/16 11/23/23 tablet (Nitrostat) pantoprazole 40 mg tablet,delayed 40 mg PO DAILY 04/27/16 11/23/23 release citalopram 10 mg tablet 20 mg PO DAILY 02/20/21 11/23/23 donepezil 10 mg tablet 10 mg PO HS 11/26/21 11/23/23 melatonin 10 mg disintegrating 15 mg PO HS PRN 11/26/21 11/23/23 tablet tamsulosin 0.4 mg capsule 0.4 mg PO DAILY 11/26/21 11/23/23 memantine 5 mg tablet 5 mg PO QHS 06/02/22 11/23/23 lacosamide 100 mg tablet 100 mg PO BID #60 tabs 06/04/22 11/23/23 ipratropium 20 mcg-albuterol 100 1 puff inhalation Q6H 08/29/22 11/23/23 mcg/actuation mist for inhalation (Combivent Respimat) ketoconazole 2 % topical cream 1 applic topical BID PRN 08/29/22 11/23/23 divalproex 500 mg tablet,extended 500 mg PO BID 09/01/22 11/23/23 release 24 hr (Depakote ER) acetaminophen 500 mg tablet 1,000 mg (2 x 500 mg) PO Q8H PRN 02/18/23 11/23/23 PRN #30 tabs apixaban 5 mg tablet 5 mg PO BID #60 tabs 02/18/23 11/23/23 metoprolol succinate 25 mg 12.5 mg (1/2 x 25 mg) PO DAILY #15 02/18/23 11/23/23 tablet,extended release 24 hr tabs (Toprol XL) atorvastatin 40 mg tablet 40 mg PO DAILY 04/02/23 11/23/23 lorazepam 0.5 mg tablet 0.5 mg PO Q4H PRN anxiety #7 tabs 11/22/23 11/23/23 morphine concentrate 100 mg/5 mL See Rx Instructions PO Q1H PRN 11/22/23 11/23/23 (20 mg/mL) oral solution pain or dyspnea #30 mL Previous Rx's ?Medication ?Instructions ?Recorded lacosamide 100 mg tablet 100 mg PO BID #60 tabs 06/04/22 acetaminophen 500 mg tablet 1,000 mg (2 x 500 mg) PO Q8H PRN 02/18/23 PRN #30 tabs apixaban 5 mg tablet 5 mg PO BID #60 tabs 02/18/23 metoprolol succinate 25 mg 12.5 mg (1/2 x 25 mg) PO DAILY #15 02/18/23 tablet,extended release 24 hr tabs (Toprol XL) lorazepam 0.5 mg tablet 0.5 mg PO Q4H PRN anxiety #7 tabs 11/22/23 morphine concentrate 100 mg/5 mL See Rx Instructions PO Q1H PRN 11/22/23 (20 mg/mL) oral solution pain or dyspnea #30 mL Allergies Allergy/AdvReac Type Severity Reaction Status Date / Time oxycodone (From Percocet) AdvReac Other (See Unverified 11/23/23 13:01 Comment) Penicillins AdvReac Other (See Unverified 11/23/23 13:01 Comment) General Stated Complaint: Nk/Back Pain FORD: 3 Review of Systems All systems reviewed & are unremarkable except as noted in HPI and below Exam Narrative Exam Narrative: GENERAL APPEARANCE: Well-nourished, non-toxic, awake and alert, atraumatic, no acute distress. SKIN: Warm, pink, dry, intact, without rashes/lesions/ulcerations. HEAD: Normocephalic, atraumatic, normal hair distribution for gender/age. EYES: Normal conjunctiva, no exudates on lids/lashes. ENT: Nares patent, no circumoral cyanosis, no facial swelling NECK: Supple, trachea midline, painless cervical ROM. LUNGS/CHEST: Lungs CTA bilaterally- on baseline O2 by NC, non-labored respirations, normal A/P diameter, symmetrical expansion, no chest wall deformity HEART (CV/PV): Regular rate and rhythm without murmur, no peripheral edema, no JVD. ABDOMEN: Soft, non-distended, no guarding. MSK: Normal ROM, no swelling/deformity to bilateral UEs or LEs, moving all extremities without weakness, no cyanosis, spine midline without tenderness, normal curvature. Right-sided lumbar tenderness without overt crepitus or step-off, no ecchymosis to the area, able to move lower legs with limitation to pain, sensation intact in bilateral lower extremities NEURO: Mental Status AAOx4 - alert to person, place, time, events No facial droop, no forehead involvement. Motor: No focal weakness - strength 5/5 in bilateral UEs and LEs, proximal and distal, symmetric. Sensory: sensation intact to light touch globally. Gait NT PSYCH: euthymic, cooperative, pleasant, appropriate speech Course Vital Signs Vital signs: Vital Signs Temperature 37.2 C 11/23/23 12:58 Pulse 71 11/23/23 12:58 Respiratory Rate 14 11/23/23 12:58 Blood Pressure 169/53 H 11/23/23 12:58 Pulse Oximetry 92 11/23/23 12:58 Temperature 37.2 C 11/23/23 12:58 Temperature Source Tympanic 11/23/23 12:58 Pulse 71 11/23/23 12:58 Respiratory Rate 14 11/23/23 12:58 Blood Pressure 169/53 H 11/23/23 12:58 Pulse Oximetry 96 11/23/23 13:05 Oxygen Delivery Method Nasal Cannula 11/23/23 13:05 Oxygen Flow Rate 2 11/23/23 13:05 Pain Level 5 11/23/23 12:58 Medical Decision Making This dictation utilizes [id number] dictation software and may contain unedited grammatical errors. 88 year-old male presents to ED today by EMS with a chief complaint of fall 2 days ago with low back pain, difficulty getting around and walking- patient has mobility issues at baseline and family is in process of obtaining hospice care. Quality described as R lower back pain, no radiation to sensory deficits, numbness, groin numbness, urinary retention, bowel incontinence. Severity is described as severe. Palliating factors include nothing specific. Provoking factors include nothing specific. Patients' medical history: History of paroxysmal A-fib, lymphoma, history of pulmonary embolism, palliative care Patient, coronary artery disease, seizure disorder, T2DM, UTI, COPD, lung cancer, frontotemporal dementia. Family and social history: Lives at home with his , does not have home care at the moment. Pertinent exam findings / vital signs include right lower lumbar tenderness without overt crepitus or step-off, no ecchymosis to the area, sensation intact in bilateral lower extremities, no saddle anesthesia. Differential / pathologies of concern include vertebral fracture, pelvic fracture, unlikely cauda equina syndrome at this time. Diagnostic studies of: -CT lumbar and pelvis without contrast. -Shows comminuted right sacral delroy with likely nondisplaced left sacral delroy fracture, no other pelvic fracture Interventions of: -P.o. Tylenol, PT consult, care management consult. ED Course/Assessment/Plan: 88-year-old male suffered a fall 2 days ago and fractured his sacrum, he will not likely passed a physical therapy ambulatory trial and the patient's family is in process of obtaining hospice care for the patient, I did consult care management for possible hospice solutions versus placement, patient will be boarding in the ED as we have no beds but the patient will unlikely have a safe discharge plan home, signed out to oncoming provider Sary Gore NP at shift change with PT and care management consult pending. Findings not consistent with cauda equina. Disposition of Fracture of Sacrum. Patient verbalized understanding of the plan and return to ED criteria and engaged in shared decision making. Medical Records Medical records reviewed: Yes I reviewed the patient's medical records. Imaging Data Radiologic Study: Attestation: I personally reviewed and interpreted this imaging study as follows: Imaging: CT Scan Radiologist's impression: EXAM: CT LUMBAR SPINE and pelvis WO CLINICAL HISTORY: fall 11/20, low back pain. TECHNIQUE: Imaging Protocol: Axial computed tomography images with coronal and sagittal reformatted images were created and reviewed. COMPARISON: CT CT CHEST PE ABD PELVIS W from 08/07/2023 FINDINGS: Bones: There is a comminuted fracture of the right sacral ala anteriorly. There is also cortical deformity of the left sacral ala suspicious for nondisplaced fracture. These were not present on the prior examination. The sacroiliac joints are intact. There is osteopenia. The alignment of the spine is normal including the thoracolumbar junction. Age-appropriate degenerative changes are seen throughout the lumbar spine. There is a right convex lumbar scoliosis. Soft tissues: There is bilateral nephrolithiasis without evidence of obstructive uropathy. Atherosclerotic calcification is present. No large disk herniations are identified. There is diffuse thickening of the wall of the urinary bladder. This may be due to cystitis or chronic bladder outlet obstruction. There is an enlarged prostate gland. IMPRESSION: 1. New comminuted fracture involving the right sacral ala. Deformity of the left sacral ala suspicious for nondisplaced fracture. 2. No acute fracture or subluxation is seen in the lumbar spine. 3. Osteopenia. 4. Incidental finding seen in the pelvis and abdomen as described above. 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) Pre-diabetes (Acute) Lung nodule (Acute) Lumbar spinal stenosis (Acute) Hyperlipidemia (Acute) GERD (gastroesophageal reflux disease) (Chronic) Depression, recurrent (Chronic) Dementia with behavioral disturbance (Acute) Cognitive changes (Acute) COAG (chronic open-angle glaucoma) (Acute) Status post cataract extraction of both eyes with insertion of intraocular lens (Acute) Benign prostatic hyperplasia (Chronic) Basal cell carcinoma of nose (Acute) ASCVD (arteriosclerotic cardiovascular disease) (Acute) Anxiety (Chronic) Congestive heart failure (Acute) Hx of falling (Acute) Concern about end of life (Acute) Pulmonary embolism associated with COVID-19 (Acute) COPD (chronic obstructive pulmonary disease) (Chronic) Breakthrough seizure (Acute) Medical History Broken arm CAD (coronary artery disease) Cataract Dementia H/O non-insulin dependent diabetes mellitus Hx of colonic polyp Hx of hyperlipidemia Myocardial infarction Neck pain Palliative care patient Paroxysmal atrial fibrillation Pneumonia Primary cutaneous marginal zone B-cell lymphoma Pulmonary embolism without acute cor pulmonale Seizure disorder Skin cancer of anterior chest UTI (urinary tract infection) Surgical History History of coronary artery stent placement History of tonsillectomy Family History Maternal Grandfather Leukemia Mother Alcohol use disorder Anxiety Cancer Social History Smoking/Tobacco Use Status: Former Tobacco Use Tobacco: How many years used: 40 Second Hand Exposure: Yes Smoking risk assessment performed?: Yes Alcohol Intake: current Alcohol Intake frequency: holidays/special occasions only Drug use: Never Substance use type: does not use Adopted: No Foster care: No Household members: spouse Housing: house Number of Children: 4 Communication Needs: Hard of Hearing and Corrective Lenses Education Level: high school Do you need help understanding health information?: Often current occupation: retired Pets and animals: No Sexually active: No Do you think of yourself as: straight/heterosexual Current gender identity: male What is your relationship status?: How often do you talk on the phone with friends or family?: three or more times per week How often do you get together with friends or relatives?: decline to answer Do you belong to any clubs or organized social groups?: no Panel score (0-1 are the most socially isolated patients): 2 What type of physical activity do you participate in: additional Details: is in PT twice a week Duration: 15-30 minutes/day Frequency: 5-6 times per week Meenu/Adventism: Congregation Special meenu needs: No Seatbelt use: always Helmet use: No Drive intox or ride w/intox industrial tractor driver: No Do you feel safe at home: Yes Do you feel safe in your relationship?: Yes Sign Out Sign Out Data: Sign Out Comment: Patient awaiting PT/CareMgMt eval - broken sacrum, possible ED boarding vs placement Last updated by Lit Jackson PA at 11/23/23 15:39
[2023-11-23] MEDS: Acetaminophen 500 MG TAB 1000 MG PO (15:27)
--- NOTE | 2023-11-23 15:56 | ED.PROG_ITS ---
Date of service: 11/23/23 Time of Service: 15:56 Medical Decision Making Care assumed from provider Neo BROWNING pending PT and care management eval. Patient is a 88 year old male w cc pelvis fracture. Pateint fell on 11/20, unable to stand today. education and training manager reports patient will be discharged home and admitted to hospice tomorrow. Will arrange transportation home via EMS. EMS here, RT at [facility] to eval patient for home O2. Patient discharged to home via EMS. This text was generated using [employer] system, please disregard any oddities of phrase or misspellings. Medical Records Medical records reviewed: Yes I reviewed the patient's medical records. Quality:SDOH Health Related Social Needs: No Data to Display Sign Out Sign Out Data: Sign Out Comment: Patient awaiting PT/CareMgMt eval - broken sacrum, possible ED boarding vs placement Last updated by Lit Jackson PA at 11/23/23 15:39 Discharge Plan Disposition Patient Disposition: Home Condition: Stable Discharge Details Clinical Impression: Fracture of sacrum Primary Care Provider: García Scruggs ED Provider: Bonnie Gordon Home Meds and New Rx's Prescriptions: Continued morphine concentrate 100 mg/5 mL (20 mg/mL) solution See Rx Instructions PO Q1H MDD 120 mg PRN (Reason: pain or dyspnea) Qty: 30 0RF Rx Instructions: 0.25-1.0 ml orally every 1 hour PRN; hospice lorazepam 0.5 mg tablet 0.5 mg PO Q4H PRN (Reason: anxiety) Qty: 7 3RF Rx Instructions: hospice citalopram 10 mg tablet 20 mg PO DAILY donepezil 10 mg tablet 10 mg PO HS melatonin 10 mg Tablet,Disintegrating 15 mg PO HS PRN Rx Instructions: take one and one half tablets = 15mg at bedtime tamsulosin 0.4 mg Capsule 0.4 mg PO DAILY memantine 5 mg tablet 5 mg PO QHS Patient Comments: TAKE 1 TABLET BY MOUTH NIGHTLY ketoconazole 2 % cream 1 applic TOPICAL BID PRN Patient Comments: APPLY CREAM TOPICALLY TO THE RASH ON THE SCALP AND AROUND HAIRLINE TWICE DAILY NEEDED Combivent Respimat 20-100 mcg/actuation Mist 1 puff INHALATION Q6H divalproex [Depakote ER] 500 mg Tablet Extended Release 24 Hr 500 mg PO BID pantoprazole 40 MG tablet,delayed release (DR/EC) 40 mg PO DAILY nitroglycerin [Nitrostat] 0.4 MG tablet, sublingual 0.4 mg Sublingual Q5 MIN PRN X3 PRN albuterol sulfate [Proventil HFA] 6.7 GM HFA aerosol inhaler 2 puff Inhalation Q4H PRN PRN lacosamide 100 mg tablet 100 mg PO BID Qty: 60 0RF acetaminophen 500 mg Tablet 1,000 mg PO Q8H PRN PRNQty: 30 0RF metoprolol succinate [Toprol XL] 25 mg tablet extended release 24 hr 12.5 mg PO DAILY Qty: 15 0RF apixaban 5 mg tablet 5 mg PO BID Qty: 60 0RF atorvastatin 40 mg tablet 40 mg PO DAILY Patient Comments: TAKE 1 TABLET BY MOUTH ONCE DAILY Discharge Instructions Instructions: Pelvic fracture Additional Instructions: Follow up as per Hospice as directed by care management. Follow up with PCP in 3-5 days. Referrals: García Scruggs DO [Primary Care Provider] - 3 days
--- NOTE | 2023-11-23 16:41 | PT.INNT ---
PT Notes Visit Reasons: Calex/Back pain Per referring MD and DEANNA Cabrera, patient is going on hospice care. No skilled services needed at this time.
--- NOTE | 2023-11-23 17:41 | PDOC.CMPRO ---
Documented by User: Deborah Ferguson 11/23/23 17:42 Date of service: 11/23/23 Time of Service: 17:41 SDOH(Care Management) Screening Will the Patient Participate in the Screening?: Yes Do you worry about having a steady place to live?: no Problems where you live: no known problems In the past 12 months, have you had to go without electric, gas, oil or water in your home?: no Have you or anyone in your house had to go without enough food to eat?: no Has lack of transportation kept you from medical appointments or from doing things needed for daily living?: no Has anyone in your support network made you feel unsafe for any reason?: no Documented by User: Ondina Vanessa 01/02/24 13:52 Care Management Progress Note Progress Note Text Progress Note Text: The author of this record is unavailable to sign this entry for which they were the author.? This is being signed in an administrative capacity to close the note.
== END 2023-11-23 16:59 | disposition home or self-care (01) ==
PROVIDERS: Emergency Provider Registered Nurse Emergency; PCP Family Medicine
DX: S32.10XA Unspecified fracture of sacrum, initial encounter for closed fracture (principal); W19.XXXA Unspecified fall, initial encounter; Z91.81 History of falling
CPT/HCPCS: 00123; 99284; 72131; 72192; 99283

== ENCOUNTER 2024-11-03 13:08 | Emergency (ER) | payer MEDICARE, SELFPAY ==
[2024-11-03] VITALS (30 sets, daily range): BP systolic 103–165; BP diastolic 40–90; PULSE 47–66; RESP 11–29; O2SAT 92–97
--- NOTE | 2024-11-03 13:00 | RT.EKG_ITS ---
APPROVED REPORT Exam: Resting ECG Reason for Exam: fall Patient Location: E HR:64 bpm ECG Measurements Heart Rate 64 AXIS GA 158 P 67 QRSd 111 QRS -48 QT 414 T 89 QTc 428 Conclusion Sinus rhythm...normal P axis, V-rate 60- 99 Incomplete left bundle branch block...QRSd>110mS, terminal axis(-90,-1)
--- NOTE | 2024-11-03 13:15 | DI.CT_ITS ---
Exam(s) CT HEAD CERVICAL SPINE WO EXAM: CT HEAD CERVICAL SPINE WO CLINICAL HISTORY: Unwitnessed fall. TECHNIQUE: Imaging Protocol: Axial computed tomography images with coronal and sagittal reformatted images were created and reviewed COMPARISON: CT CT HEAD WO from 08/07/2023 FINDINGS: BRAIN: There are no skull fractures nor fluid in the visualized paranasal sinuses. There is no evidence of intracranial hemorrhage, mass effect, or shift of midline structures. There are no extra-axial fluid collections. Ventricular size is commensurate with the size of the overlying cortical sulci. There is no blood within the ventricular system nor within the basal cisterns. There is symmetrical bilateral periventricular hypodensity consistent with chronic small vessel disease. No acute infarct evident. CERVICAL SPINE: No evidence of acute fracture. There is advanced chronic disc space narrowing at C 5-6 and C6-7 levels. Mild degenerative listhesis at C4-5 and C6-7 levels related to facet arthropathy. There is no facet joint malalignment. Calcification in the supraspinous ligament behind the C7 spinous process noted No osseous lesions. IMPRESSION: No acute intracranial findings on this noninfused CT scan of the brain. No evidence of acute cervical spine fracture, malalignment, nor acute compromise of the cervical spinal canal. Report called by myself to ER 11/03/2024 at 2:57 p.m. RADIATION DOSE DELIVERED: 1,162.96mGy.cm Total DLP DATA REPOSITORY: All CT scans at this facility are submitted to the National Radiology Data Registry (NRDR) Dose Index Registry (DIR) with the [employer] (A[employer]). RADIATION OPTIMIZATION: All CT scans at this facility use at least one of these dose optimization techniques: automated exposure control; mA and/or kV adjustment per patient size (includes targeted exams where dose is matched to clinical indication); or iterative reconstruction.
--- NOTE | 2024-11-03 13:15 | DI.RAD_ITS ---
Exam(s) XR FOREARM RT EXAM: XR FOREARM RT CLINICAL HISTORY: Fall. TECHNIQUE: 2D digital imaging was performed. COMPARISON: No exams were available for comparison FINDINGS: 3 views Very subtle irregularity at the level the radial head-neck which may be a very subtle nondisplaced fracture of the radial neck, and there is also a calcific density in the lateral elbow joint space interposed between the lateral aspect of the capitellum and the lateral aspect of the radial head, this in the region of the lateral collateral ligament. This may represent a loose intra-articular body. There does not appear to be in obvious elbow joint effusion. Remainder of the radius and ulna appear unremarkable. Calcifications noted in the ulnar artery at the level the wrist. No significant soft tissue findings. IMPRESSION: As above. If clinically indicated dedicated views of the elbow can be performed DATA REPOSITORY: RADIATION DOSE DELIVERED:
--- NOTE | 2024-11-03 13:15 | DI.RAD_ITS ---
Exam(s) XR WRIST RT COMPLETE EXAM: XR WRIST RT COMPLETE CLINICAL HISTORY: Fall. TECHNIQUE: 2D digital imaging was performed. COMPARISON: No exams were available for comparison FINDINGS: 3 views No evidence of acute fracture or dislocation nor significant ulnar variance. Scaphoid and scapholunate distance are normal. There are danced degenerative changes at the 1st carpometacarpal joint but no fracture seen in this level. Some vascular calcification is noted at the level the wrist. Bone density is age-appropriate. No osseous lesions. IMPRESSION: Degenerative changes at the 1st carpometacarpal joint. No fractures evident in the wrist. DATA REPOSITORY: RADIATION DOSE DELIVERED:
--- NOTE | 2024-11-03 13:30 | DI.RAD_ITS ---
Exam(s) XR CHEST 2V PA LATERAL EXAM: XR CHEST 2V PA LATERAL CLINICAL HISTORY: Fall, Non-verbal. TECHNIQUE: 2D digital imaging was performed. COMPARISON: CR,XR XR CHEST 2V PA LATERAL from 08/07/[address] HEAD CERVICAL SPINE WO from 11/03/2024 FINDINGS: 2 views: Heart size is normal. The mediastinum is not widened. Lungs are clear. No infiltrates nor pleural effusions. Trachea is again noted to be deviated towards the right side. IMPRESSION: No acute pulmonary findings. DATA REPOSITORY: RADIATION DOSE DELIVERED:
--- NOTE | 2024-11-03 13:38 | W.ED.GENAD ---
Discharge Plan Disposition Patient Disposition: Home Condition: Fair Discharge Details Clinical Impression: Frequent falls, Thrombocytopenia, Cellulitis of forearm, right Primary Care Provider: García Scruggs ED Provider: Bonnie Gordon Home Meds and New Rx's Prescriptions: New clindamycin HCl 150 mg capsule 300 mg PO BID 10 Days Qty: 40 0RF Rx Instructions: Take two tablets by mouth twice daily Continued donepezil 10 mg tablet 10 mg PO HS Qty: 90 3RF memantine 5 mg tablet See Rx Instructions .ROUTE .COMPLEX Qty: 90 3RF Dose Instruction: TAKE 1 TABLET BY MOUTH EVERY DAY AT BEDTIME Rx Instructions: TAKE 1 TABLET BY MOUTH EVERY DAY AT BEDTIME aspirin 81 mg tablet,delayed release (DR/EC) 81 mg PO DAILY multivitamin Tablet 1 tab PO DAILY tamsulosin 0.4 mg capsule 0.4 mg PO DAILY Qty: 90 3RF docusate sodium 100 mg capsule 100 mg PO BID Qty: 60 0RF Rx Instructions: Previously prescribed by hospice. lacosamide 100 mg tablet 100 mg PO BID Qty: 60 5RF valproic acid (as sodium salt) 250 mg/5 mL solution 250 mg PO QID Qty: 473 6RF acetaminophen 500 mg Tablet 1,000 mg PO Q8H PRN PRNQty: 30 0RF Discharge Instructions Instructions: Preventing falls in adults, Bleeding Precautions, Platelet Count Test, Cellulitis (Skin Infection), Adult ED Additional Instructions: At this time you have declined admission or care management resources such as home health care or occupational health physical therapy or case management social worker. Please discussed the services with your primary care provider. Please keep your primary care appointment. It appears that there may be a subtle fracture in the right upper extremity. Please see orthopedics. You are placed on a care management list they will call you for an appointment. Please keep the wound clean and dry. Change the dressing daily. Take the antibiotics twice daily with yogurt or a probiotic as directed. Please take Tylenol or Ibuprofen with food every 4-6 hours as needed for pain and swelling. Referrals: Mikey Quiros MD [ [facility] STAFF PHYSICIAN, Orthopaedic Surgical] - 1 week García Scruggs DO [Primary Care Provider, Medicine] - 3 days Discharge Data Discharge Date/Time-TO BE ENTERED AT DEPARTURE: 11/03/24 16:54 HPI General Mode of arrival: EMS. Date/Time Provider Initiated Documentation: 11/03/24 13:18. Limitations to Documentation: altered mental status and physical limitation. Information obtained by: family ( Aletha), EMS, RN notes reviewed and old records reviewed. HPI Narrative: 89-year-old male presents to the ER via EMS with a chief complaint of unwitnessed fall which occurred approximately around 0530 this morning. Patient lives alone with his Aletha who is his sole caregiver. She states that he is fallen multiple times over the last weeks today's he does use a cane. He is nonverbal and does have a history of dementia. EMS reports that patient possibly was on the floor since 530 this morning. Patient is a DNR/DNI. Related Data Home Medications ?Medication ?Instructions ?Recorded ?Confirmed acetaminophen 500 mg tablet 1,000 mg (2 x 500 mg) PO Q8H PRN 02/18/23 11/03/24 PRN #30 tabs tamsulosin 0.4 mg capsule 0.4 mg PO DAILY #90 caps 03/23/24 11/03/24 docusate sodium 100 mg capsule 100 mg PO BID #60 caps 05/11/24 11/03/24 aspirin 81 mg tablet,delayed 81 mg PO DAILY 06/14/24 11/03/24 release multivitamin 1 tab PO DAILY 06/14/24 11/03/24 donepezil 10 mg tablet 10 mg PO HS #90 tabs 07/06/24 11/03/24 memantine 5 mg tablet See Rx Instructions .Route 07/06/24 11/03/24 .COMPLEX #90 tabs lacosamide 100 mg tablet 100 mg PO BID #60 tabs 08/27/24 11/03/24 valproic acid (as sodium salt) 250 250 mg (5 mL) PO QID #473 mL 10/19/24 11/03/24 mg/5 mL oral solution clindamycin HCl 150 mg capsule 300 mg (2 x 150 mg) PO BID 11/03/24 Cellulitis 10 days #40 caps Previous Rx's ?Medication ?Instructions ?Recorded acetaminophen 500 mg tablet 1,000 mg (2 x 500 mg) PO Q8H PRN 02/18/23 PRN #30 tabs tamsulosin 0.4 mg capsule 0.4 mg PO DAILY #90 caps 03/23/24 docusate sodium 100 mg capsule 100 mg PO BID #60 caps 05/11/24 donepezil 10 mg tablet 10 mg PO HS #90 tabs 07/06/24 memantine 5 mg tablet See Rx Instructions .Route 07/06/24 .COMPLEX #90 tabs lacosamide 100 mg tablet 100 mg PO BID #60 tabs 08/27/24 valproic acid (as sodium salt) 250 250 mg (5 mL) PO QID #473 mL 10/19/24 mg/5 mL oral solution clindamycin HCl 150 mg capsule 300 mg (2 x 150 mg) PO BID 11/03/24 Cellulitis 10 days #40 caps Allergies Allergy/AdvReac Type Severity Reaction Status Date / Time oxycodone (From Percocet) AdvReac Other (See Unverified 11/05/24 16:35 Comment) Penicillins AdvReac Other (See Unverified 11/05/24 16:35 Comment) General Stated Complaint: Orthopedic FORD: 3 Review of Systems Narrative: Majority of history supplied by EMS and patient's . Patient is a poor historian. All systems reviewed & are unremarkable except as noted in HPI and below Musculoskeletal Musculoskeletal: Reports as per HPI and Reports other (Right arm pain) Integumentary/Breasts Skin/Breast: Reports erythema (Right anterior forearm) and Reports sores Neurologic Neurologic: Reports as per HPI and Reports confusion (Hx of dementia) Psychiatric Psychiatric: Reports confusion (Hx of dementia) Exam Narrative Exam Narrative: General: Patient presents with c-collar in place, opens eyes to verbal stimulus, appears chronically confused, is complaining of right arm pain, does not appropriately answer questions or respond to questioning. Skin: Warm and Dry HEENT: Head: No palpable deformities, Normocephalic Eyes: Pupils PERRLA, EOM's intact. No periorbital eccymosis or step off Ears: Canal patent. Tympanic membranes are clear . No keane's sign, no hemptympanum. Nose/Face: Atraumatic. Facial bones nontender to palpation and stable with manipulation. Mouth/Throat: No intraoral trauma. Teeth and mandible are intact. Upper dentures noted, does have red substance noted around his mouth. No on his shirt. Neck: , no step off, no deformity to palpation of C-spine. Trachea midline. T and L-spine: Does have a abrasion noted to his mid T spine area, no significant crepitus or step-off palpated. Chest: No surface trauma. Nontender without crepitus or deformity. Lungs clear to ausculatation bilaterally. Heart: RRR, no rubs, murmurs or gallop. Abdomen: No abrasions, ecchymosis, or surface trauma. Nondistended. Nontender to palpation no guarding, rebound, or rigidity. Pelvis: Nontender to palpation and stable to compression. Femoral pulses strong and equal Extremities: Does have a lesion noted to his right anterior forearm, surrounding induration and erythema noted there is scab formation appears somewhat chronic, sensation intact. Peripheral pulses intact and equal. Neuro: Awake, responds to name, pulls away from pain, appears chronically confused, moves all 4 extremities without difficulty, motor and sensory exam nonfocal. Course Vital Signs Vital signs: Vital Signs Pulse 60 11/03/24 13:14 Respiratory Rate 12 11/03/24 13:14 Blood Pressure 165/61 H 11/03/24 13:14 Pulse Oximetry 97 11/03/24 13:14 Pulse 60 11/03/24 13:14 Respiratory Rate 12 11/03/24 13:14 Blood Pressure 165/61 H 11/03/24 13:14 Blood Pressure Position Supine 11/03/24 13:14 Pulse Oximetry 97 11/03/24 13:14 Oxygen Delivery Method Room Air 11/03/24 13:14 Oxygen Flow Rate 0 11/03/24 13:14 Medical Decision Making 89-year-old male presents to the ER via EMS with a chief complaint of unwitnessed fall which occurred approximately around 0530 this morning. Patient lives alone with his Aletha who is his sole caregiver. She states that he is fallen multiple times over the last weeks today's he does use a cane. He is nonverbal and does have a history of dementia. EMS reports that patient possibly was on the floor since 530 this morning. Patient is a DNR/DNI. does state that he does lay on the ground sometimes after falls for long periods of time. He does take Valproic acid 4 times daily, I did speak with Aletha who states that she does not want a lot of workup completed due to financial reasons. She also states that he does not like a lot of people in his home so she does not have home health or caregiver at home. also endorses frequent aspirations. I did go over his plan of care with her she verbalized understanding. After discussing at length patient plan of care with due to financial concerns and patient comfort, CT chest abdomen pelvis canceled will get a chest x-ray wrist x-ray CT head and C-spine CK and labs ordered. Including serial troponins. CBC shows a leukopenia with white blood cell count of 3.57, platelets are 90, last value was 117 in July 2023, absolute neutrophils 1.01, PT/INR within normal limits, initial troponin is 12, valproic acid level is 114.6, CT head C-spine shows no evidence for acute intracranial abnormality no hemorrhage, no acute infarct noted. No evidence for C-spine fracture. Please see official report. Discussed at length with regarding care management consultation and home health referral with social work she declines at this time. I also did recommend and offer admission for thrombocytopenia and a right upper extremity cellulitis she also would prefer to take patient home at this time. X-ray right forearm shows a very subtle irregularly at the radial head neck which could be a subtle nondisplaced fracture and a calcific density in the lateral elbow joint space. Will perform wound care, placed dressing on the lesion place in a wrist immobilization and sling and place on orthopedic follow-up list. reports that patient has a PCP appointment on Tuesday I did encourage her to keep this appointment. Despite encouragement for admission or care management continues to decline. Patient has seen palliative care in the past. Will road test and attempt to discharge. This text was generated using [employer] dictation system, please disregard any oddities of phrase or misspellings. Medical Records Medical records reviewed: Yes I reviewed the patient's medical records. Imaging Data Radiologic Study: Imaging: X-Ray Radiologist's impression: EXAM: XR FOREARM RT CLINICAL HISTORY: Fall. TECHNIQUE: 2D digital imaging was performed. COMPARISON: No exams were available for comparison FINDINGS: 3 views Very subtle irregularity at the level the radial head-neck which may be a very subtle nondisplaced fracture of the radial neck, and there is also a calcific density in the lateral elbow joint space interposed between the lateral aspect of the capitellum and the lateral aspect of the radial head, this in the region of the lateral collateral ligament. This may represent a loose intra-articular body. There does not appear to be in obvious elbow joint effusion. Remainder of the radius and ulna appear unremarkable. Calcifications noted in the ulnar artery at the level the wrist. No significant soft tissue findings. IMPRESSION: As above. If clinically indicated dedicated views of the elbow can be performed Lab Data Lab results reviewed: Yes I reviewed the patient's lab results. Labs: 11/03/24 14:46 Arm - Right Upper Skin Culture - Pending Laboratory Tests Range/Units 11/03/24 11/03/24 11/03/24 13:40 14:56 16:19 WBC (4.4-10.8) 10^3/uL 3.57 L RBC (4.36-5.78) 10^6/uL 4.48 Hgb (13.5-17.5) g/dL 14.5 Hct (40.0-50.0) % 41.9 MCV (80-95) fL 94 MCH (27.0-33.0) pg 32.4 MCHC (32.0-36.0) % 34.6 RDW (11.8-14.1) % 13.3 Plt Count (130-400) 10^3/uL 90 L MPV (8.0-11.0) fL 10.3 Immature Gran % % 2.2 Neutrophils % % 28.3 Lymphocytes % % 37.8 Monocytes % % 28.9 Eosinophils % % 2.5 Basophils % % 0.3 Nucleated RBC % (0.0-0.3) % 0.0 Absolute Neutrophils (1.2-6.7) 10^3/uL 1.01 L Absolute Lymphocytes (1.2-3.4) 10^3/uL 1.35 Absolute Monocytes (0.1-0.8) 10^3/uL 1.03 H Absolute Eosinophils (0.0-0.7) 10^3/uL 0.09 Absolute Basophils (0.0-0.2) 10^3/uL 0.01 PT (9.1-11.1) sec 10.9 INR (0.9-1.1) 1.1 Sodium (136-145) mmol/L 143 Potassium (3.5-5.1) mmol/L 3.9 Chloride (98-107) mmol/L 104 Carbon Dioxide (21.0-32.0) mmol/L 35.2 H Anion Gap (3-11) mmol/L 3.8 BUN (7-18) mg/dL 11 Creatinine (0.70-1.30) mg/dL 0.9 Est GFR (CKD-EPI 2020) (mL/min/1.73m2) 82.15 Glucose (74-106) mg/dL 87 Calcium (8.5-10.1) mg/dL 9.0 Magnesium (1.8-2.4) mg/dL 2.2 Total Bilirubin (0.2-1.0) mg/dL 0.6 AST (15-37) U/L 26 ALT (16-63) U/L 19 Alkaline Phosphatase (46-116) U/L 74 Creatine Kinase (39-308) U/L 47 Troponin I (<or=76) ng/L 12 12 Cancelled Total Protein (6.4-8.2) g/dL 6.7 Albumin (3.4-5.0) g/dL 3.5 Valproic Acid ( - 150) ug/mL 114.6 PFSH All Active Problems (Updated 11/03/24 @ 15:23 by Bonnie Gordon NP) Cellulitis of forearm, right (Acute) Thrombocytopenia (Chronic) Frequent falls (Acute) Actinic keratosis (Acute) Unintentional weight loss (Acute) Agitation due to dementia (Acute) Falls (Acute) Dependence on caregiver (Acute) Frontotemporal dementia (Acute) COPD with exacerbation (Acute) Noncompliance with medications (Acute) Elevated troponin (Acute) Seizure (Acute) Onychomycosis (Acute) Obstructive sleep apnea (Chronic) Rosacea (Acute) 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) Pre-diabetes (Acute) Lung nodule (Acute) Lumbar spinal stenosis (Acute) Hyperlipidemia (Acute) GERD (gastroesophageal reflux disease) (Chronic) Depression, recurrent (Chronic) Dementia with behavioral disturbance (Acute) Cognitive changes (Acute) COAG (chronic open-angle glaucoma) (Acute) Status post cataract extraction of both eyes with insertion of intraocular lens (Acute) Benign prostatic hyperplasia (Chronic) Basal cell carcinoma of nose (Acute) ASCVD (arteriosclerotic cardiovascular disease) (Acute) Anxiety (Chronic) Congestive heart failure (Acute) Hx of falling (Acute) Concern about end of life (Acute) Pulmonary embolism associated with COVID-19 (Acute) COPD (chronic obstructive pulmonary disease) (Chronic) Breakthrough seizure (Acute) Medical History Broken arm CAD (coronary artery disease) Cataract Dementia H/O non-insulin dependent diabetes mellitus Hx of colonic polyp Hx of hyperlipidemia Myocardial infarction Neck pain Palliative care patient Paroxysmal atrial fibrillation Pneumonia Primary cutaneous marginal zone B-cell lymphoma Pulmonary embolism without acute cor pulmonale Seizure disorder Skin cancer of anterior chest UTI (urinary tract infection) Surgical History History of coronary artery stent placement History of tonsillectomy Family History Maternal Grandfather Leukemia Mother Alcohol use disorder Anxiety Cancer Social History Smoking/Tobacco Use Status: Former Tobacco Use Tobacco: How many years used: 40 Second Hand Exposure: Yes Smoking risk assessment performed?: Yes Alcohol Intake: current Alcohol Intake frequency: holidays/special occasions only Drug use: Never Substance use type: does not use Adopted: No Foster care: No Household members: spouse Housing: house Number of Children: 4 Communication Needs: Hard of Hearing and Corrective Lenses Education Level: high school Do you need help understanding health information?: Often current occupation: retired Pets and animals: No Sexually active: No Do you think of yourself as: straight/heterosexual Current gender identity: male What is your relationship status?: How often do you talk on the phone with friends or family?: three or more times per week How often do you get together with friends or relatives?: decline to answer Do you belong to any clubs or organized social groups?: no Panel score (0-1 are the most socially isolated patients): 2 What type of physical activity do you participate in: additional Details: is in PT twice a week Duration: 15-30 minutes/day Frequency: 5-6 times per week Meenu/Druze: Jehovah'S Witness Special meenu needs: No Seatbelt use: always Helmet use: No Drive intox or ride w/intox motorcoach driver: No Do you feel safe at home: Yes Do you feel safe in your relationship?: Yes
[2024-11-03 13:50] LABS: Abs Immature Grans 0.08 10^3/uL (0.0-0.06); HCT 41.9 % (40.0-50.0); HGB 14.5 g/dL (13.5-17.5); Immature Grans % 2.2 %; MCH 32.4 pg (27.0-33.0); MCHC 34.6 % (32.0-36.0); MCV 94 fL (80-95); MPV 10.3 fL (8.0-11.0); RBC 4.48 10^6/uL (4.36-5.78); RDW 13.3 % (11.8-14.1); RDW-SD 45.5 fL; WBC 3.57 10^3/uL (4.4-10.8)
[2024-11-03] MEDS: Ondansetron 4 MG/2 ML VIAL IVP (13:51)
[2024-11-03 14:03] LABS: INR 1.1 (0.9-1.1); Platelet Count 90 10^3/uL (130-400); Prothrombin Time 10.9 sec (9.1-11.1)
[2024-11-03 14:06] LABS: ALT 19 U/L (16-63); AST 26 U/L (15-37); Albumin 3.5 g/dL (3.4-5.0); Alkaline Phosphatase 74 U/L (46-116); Anion Gap 3.8 mmol/L (3-11); BUN 11 mg/dL (7-18); Bilirubin, Total 0.6 mg/dL (0.2-1.0); CO2 35.2 mmol/L (21.0-32.0); Calcium 9.0 mg/dL (8.5-10.1); Chloride 104 mmol/L (98-107); Creatine Kinase 47 U/L (39-308); Estimated GFR 82.15 (mL/min/1.73m2); Glucose 87 mg/dL (74-106); Magnesium 2.2 mg/dL (1.8-2.4); Potassium 3.9 mmol/L (3.5-5.1); Sodium 143 mmol/L (136-145); Total Protein 6.7 g/dL (6.4-8.2); Troponin I 12 ng/L (<or=76)
[2024-11-03 15:23] LABS: Troponin I 12 ng/L (<or=76)
[2024-11-03] MEDS: Clindamycin 150 MG CAP 300 MG PO (16:12)
[2024-11-03] MEDS: Clindamycin 300 MG CAP (16:56)
--- NOTE | 2024-11-03 17:08 | NUR.NOTE ---
Nursing Note: Extensively reviewed splint/sling application, d/c instructions, wound care instructions and scheduled f/u appts./referrals with pt's . Pt's sent home w/ wound care supplies and advised to buy large band-aids to cover wound on RT wrist as the Mepilex adheres to wound and should only be used in the case of excessive drainage or if using bacitracin or other provider approved ointment over wound bed. Pt's advised to remove splint daily and check wound + pt's skin. Pt's verbalized understanding of all instructions. All questions answered.
== END 2024-11-03 16:54 | disposition home or self-care (01) ==
PROVIDERS: Emergency Provider Registered Nurse Emergency; PCP Family Medicine
DX: F03.90 Unspecified dementia, unspecified severity, without behavioral disturbance, psychotic disturbance, mood disturbance, and anxiety (principal); L03.113 Cellulitis of right upper limb; D69.6 Thrombocytopenia, unspecified; M25.531 Pain in right wrist; R29.6 Repeated falls; R62.7 Adult failure to thrive
CPT/HCPCS: 99284 ×2; 29125; 96374; 36415; 80053; 82550; 87077; 93005; 70450; 71046; 72125; 73090; 73110; 80164; 83735; 84484; 85025; 85610; 87070; 87186; 93010; J2405

== ENCOUNTER 2024-11-05 16:29 | Observation (INO) | payer MEDICARE, SELFPAY ==
--- NOTE | 2024-11-05 16:30 | RT.EKG_ITS ---
APPROVED REPORT Exam: Resting ECG Reason for Exam: AMS Patient Location: E HR:77 bpm ECG Measurements Heart Rate 77 AXIS FL 151 P 59 QRSd 107 QRS -52 QT 371 T 109 QTc 421 Conclusion Sinus rhythm, rate 77 No interval abnormalities LAFB unchanged from priors No STEMI T wave inversion I, aVL, unchanged
[2024-11-05 16:31] VITALS: BP 121/73; PULSE 84; RESP 20; TEMP 36.6; O2SAT 94
--- NOTE | 2024-11-05 16:36 | DI.RAD_ITS ---
Exam(s) XR CHEST 1V IN DI DEPT EXAM: XR CHEST 1V IN DI DEPT CLINICAL HISTORY: eval PNA. TECHNIQUE: 2D digital imaging was performed. COMPARISON: CR XR CHEST 2V PA LATERAL from 11/03/2024 FINDINGS: Single AP portable view. Heart size is upper normal. The mediastinum is not widened. No confluent infiltrates nor pleural effusions. No pulmonary edema. IMPRESSION: No acute pulmonary findings on this single AP portable view of the chest. DATA REPOSITORY: RADIATION DOSE DELIVERED:
--- NOTE | 2024-11-05 16:45 | DI.CT_ITS ---
Exam(s) CT BRAIN NECK CTA EXAM: CT BRAIN NECK CTA CLINICAL HISTORY: AMS, minimally responsive. TECHNIQUE: Imaging Protocol: Axial CT angiography was performed with multi- slice acquisition and multi-planar and/or 3D reconstructions. CONTRAST MATERIAL: Intravenous: Omnipaque 350 Contrast volume:70 mL COMPARISON: CT CT HEAD CERVICAL SPINE WO from 11/03/2024 FINDINGS: CTA Neck W: Aortic arch anatomy: There is some plaque at the origin the great vessels off the aortic arch but there does not appear to be evidence of hemodynamically significant stenosis at these levels. No intimal flap evident. Anterior circulation: Both common carotid arteries ascend with normal luminal diameters. At the left carotid bulb-proximal left ICA there is abundant calcified and noncalcified plaque and there is a critical focal stenosis at this level measuring approximately 90 percent. There is also some narrowing of the internal carotid artery above this level in the neck. On the opposite-right side there is plaque at the carotid bulb and proximal right ICA but without hemodynamically stenosis, estimated approximately 20 percent. There no dissection flaps in the neck. Posterior circulation: Both vertebral arteries originate in conventional fashion off of the subclavian arteries and there is no obvious stenosis at the origin of the right vertebral artery. There is some calcified plaque at the origin of the left vertebral artery off of the left subclavian artery. However, both vertebral arteries are patent within the foramen transverse area and at the skull base both vertebral arteries contribute to the formation of the basilar artery. CTA Brain W: Anterior circulation: Both internal carotid arteries are patent in the skull base-carotid canals as well as within the cavernous sinuses. There is some mural calcification in both intra cavernous internal carotid arteries but not enough to result in significant stenosis at these levels. The supraclinoid aspects of the ICAs are patent. Both A1 segments are patent as are the anterior cerebral arteries and there is no evidence of aneurysm at the level of the anterior communicating artery. Both middle cerebral arteries are patent with no evidence of significant stenosis nor intraluminal thrombus. There also no aneurysms of these vessels. Posterior circulation: Basilar artery ascends in the midline without significant stenosis. Distally gives off superior cerebellar arteries and above this level terminates as patent bilateral posterior cerebral cerebral arteries There is no evidence of aneurysm at the tip of the basilar artery nor elsewhere in the [id number]. CT BRAIN: There is no evidence of intracranial hemorrhage, mass effect, or shift of midline structures. There are no extra-axial fluid collections. Ventricles are not enlarged or shifted. Size of the ventricles is commensurate with the size of the overlying cortical sulci. There is mild symmetrical bilateral periventricular hypodensity consistent with chronic small vessel disease. No obvious acute infarct. There are no ring enhancing lesions in the brain and no abnormal meningeal enhancement. Evidence of prior bilateral cataract surgery in the orbits. IMPRESSION: 1. There is calcified and noncalcified plaque in both sides the neck at the level the proximal internal carotid artery/carotid bulbs. This is more prominent on the left side where there appears to be focal high-grade stenosis approximately 80-90 percent. 2. Patent vertebral arteries. Mild stenosis noted at the origin left vertebral artery. No evidence of vertebral artery dissection. 3. Patent intracranial arteries. 4. No acute intracranial findings. There are also no enhancing lesions in the brain. Report called by myself to ER physician on 11/05/2024 at 6:06 p.m. RADIATION DOSE DELIVERED: 2,188.95mGy.cm Total DLP DATA REPOSITORY: All CT scans at this facility are submitted to the National Radiology Data Registry (NRDR) Dose Index Registry (DIR) with the [employer] ([employer]). RADIATION OPTIMIZATION: All CT scans at this facility use at least one of these dose optimization techniques: automated exposure control; mA and/or kV adjustment per patient size (includes targeted exams where dose is matched to clinical indication); or iterative reconstruction.
[2024-11-05 17:05] VITALS: BP 121/73; PULSE 84; RESP 20; TEMP 36.6; O2SAT 94
[2024-11-05 17:10] LABS: Abs Immature Grans 0.10 10^3/uL (0.0-0.06); HCT 43.2 % (40.0-50.0); HGB 14.9 g/dL (13.5-17.5); Immature Grans % 1.4 %; MCH 32.3 pg (27.0-33.0); MCHC 34.5 % (32.0-36.0); MCV 94 fL (80-95); MPV 10.3 fL (8.0-11.0); Platelet Count 120 10^3/uL (130-400); RBC 4.62 10^6/uL (4.36-5.78); RDW 13.6 % (11.8-14.1); RDW-SD 45.9 fL; WBC 7.28 10^3/uL (4.4-10.8)
--- NOTE | 2024-11-05 17:14 | W.ED.GENAD ---
Discharge Plan Disposition Patient Disposition: Admit to [facility] Condition: Stable Discharge Details Clinical Impression: Frequent falls, Thrombocytopenia, Cellulitis of forearm, right, Failure to thrive in adult Admit Date/Time: 11/05/24 19:19 Admit Provider: Oli Escudero Attending Provider: Oli Escudero Primary Care Provider: García Scruggs ED Provider: Татьяна Rocha Discharge Data Discharge Date/Time-TO BE ENTERED AT DEPARTURE: 11/05/24 20:07 HPI General Mode of arrival: ambulatory. Date/Time Provider Initiated Documentation: 11/05/24 16:36. Limitations to Documentation: altered mental status. Information obtained by: family and old records reviewed. HPI Narrative: This is an 89-year-old male patient with a past medical history significant for CAD, diabetes, seizure disorder, dementia, hyperlipidemia, and recent visit to our emergency department after a fall at home with evidence of cellulitis in the forearm, presented for evaluation of altered mental status. The patient history is obtained from the , who is the patient's primary caregiver. He has had a very rapid decline at home, typically is able to talk and answer simple questions, and has been nonverbal since yesterday entirely. She reports that he has taken multiple falls at home and typically she is not able to get him off the floor so he lays on the floor for a long time. He has had minimal oral intake per family, and they have noted a junky sounding his throat and are concerned that he is choking. He was seen by a primary care provider in the outpatient environment to noted his concerning decline, and the patient was sent to our facility for evaluation of aspiration pneumonia and for further workup of his encephalopathy. The patient is unable to participate in the examination, opens his eyes and mumbles to direct questions, unintelligible. Appears to have pain with movement of the right arm consistent with the injury noted during the prior ED visit. Per family, they have been unable to get the patient to take his antibiotics due to his difficulty swallowing, he has taken only 1 dose of clindamycin since discharge. Subjective fevers reported but they have not measured a temperature. EMS noted junky sounding lung sounds. He was otherwise hemodynamically appropriate during his transfer here. Related Data Home Medications ?Medication ?Instructions ?Recorded ?Confirmed acetaminophen 500 mg tablet 1,000 mg (2 x 500 mg) PO Q8H PRN 02/18/23 11/05/24 PRN #30 tabs tamsulosin 0.4 mg capsule 0.4 mg PO DAILY #90 caps 03/23/24 11/05/24 docusate sodium 100 mg capsule 100 mg PO BID #60 caps 05/11/24 11/05/24 aspirin 81 mg tablet,delayed 81 mg PO DAILY 06/14/24 11/05/24 release multivitamin 1 tab PO DAILY 06/14/24 11/05/24 donepezil 10 mg tablet 10 mg PO HS #90 tabs 07/06/24 11/05/24 lacosamide 100 mg tablet 100 mg PO BID #60 tabs 08/27/24 11/05/24 valproic acid (as sodium salt) 250 250 mg (5 mL) PO QID #473 mL 10/19/24 11/05/24 mg/5 mL oral solution clindamycin HCl 150 mg capsule 300 mg PO BID Cellulitis 11/05/24 11/05/24 memantine 5 mg tablet 5 mg PO QHS 11/05/24 11/05/24 Previous Rx's ?Medication ?Instructions ?Recorded acetaminophen 500 mg tablet 1,000 mg (2 x 500 mg) PO Q8H PRN 02/18/23 PRN #30 tabs tamsulosin 0.4 mg capsule 0.4 mg PO DAILY #90 caps 03/23/24 docusate sodium 100 mg capsule 100 mg PO BID #60 caps 05/11/24 donepezil 10 mg tablet 10 mg PO HS #90 tabs 07/06/24 lacosamide 100 mg tablet 100 mg PO BID #60 tabs 08/27/24 valproic acid (as sodium salt) 250 250 mg (5 mL) PO QID #473 mL 10/19/24 mg/5 mL oral solution Allergies Allergy/AdvReac Type Severity Reaction Status Date / Time oxycodone (From Percocet) AdvReac Other (See Unverified 11/05/24 16:35 Comment) Penicillins AdvReac Other (See Unverified 11/05/24 16:35 Comment) General Stated Complaint: GenMedical FORD: 3 Exam Narrative Exam Narrative: Gen: Somnolent, arouses to loud verbal or noxious stimuli HEENT: Non-icteric sclera, tracks this provider appropriately when awake Neck: Supple Lungs: No apparent respiratory distress, I do note crackles in the bilateral lungs, without rhonchi, wheezing CV: Appears well perfused, heart with regular rate and rhythm Abdomen: Non-distended, soft, nontender MSK: Moves 4 extremities without apparent limitation in ROM with the exception of the right upper extremity, which is tender with manipulation of the elbow and wrist. He did come to the facility with a thumb spica splint on, it is reported by family to have been cleared by orthopedics per verbal report. Skin: Visualized skin without rashes, cyanosis other than a small area of cellulitic changes on the anterior aspect of the right forearm Neuro: No obvious focal deficits or facial asymmetry though the patient is unfortunately minimally participatory in the exam. Mumbling, incoherent speech, difficult to awaken Course Vital Signs Vital signs: Vital Signs Temperature 36.6 C 11/05/24 16:31 Pulse 84 11/05/24 16:31 Respiratory Rate 20 11/05/24 16:31 Blood Pressure 121/73 11/05/24 16:31 Pulse Oximetry 94 11/05/24 16:31 Temperature 36.6 C 11/05/24 17:05 Pulse 84 11/05/24 17:05 Respiratory Rate 20 11/05/24 17:05 Blood Pressure 121/73 11/05/24 17:05 Pulse Oximetry 94 11/05/24 17:05 Oxygen Delivery Method Room Air 11/05/24 17:05 Oxygen Flow Rate 0 11/05/24 17:05 Medical Decision Making This is an 89-year-old male patient presenting for evaluation of decreased mentation, poor p.o. intake, and decreased speech. Differential includes but is not limited to intracranial abnormalities including stroke, intracranial hemorrhage, mass effect. No evidence of seizure activity, no fever to suggest meningitis or encephalitis. Considered metabolic and electrolyte derangements, anemia, kidney and liver injury. Considered infection including UTI, skin and soft tissue infection, pneumonia including aspiration pneumonia, no intra-abdominal symptoms to suggest pathology in that region. Certainly considered dehydration and progression of his dementia. Considered hypothyroidism, pulmonary edema, COPD exacerbation. I obtained an EKG which shows a normal sinus rhythm with no evidence of acute ischemia nor significant changes when compared to priors. I will obtain a CTA brain and neck, chest x-ray, and labs to include CBC, CMP, magnesium, troponin, and urinalysis. - I independently interpreted the laboratory studies, which show no significant leukocytosis, anemia, or new/worsening thrombocytopenia. The chemistry panel is without evidence of electrolyte abnormality, kidney dysfunction, or liver injury. BNP is very slightly elevated to 598, troponin was negative and without interval increase in 1 hour delta recheck. Lipase is low and TSH is within normal limits. Urinalysis noninfectious though with trace ketones and hematuria. I reviewed the imaging, patient has no intracranial hemorrhage or mass effect, does have a critical stenosis of 90% to the left internal carotid. Chest x-ray without evidence of pneumonia or other abnormalities to explain the patient's sputum changes. Given his history of COPD and the concern for aspiration, we will start the patient on ceftriaxone and azithromycin. This should also cover his cellulitis, which has not been adequately treated per patient family report. At this time, though the patient's workup has been quite reassuring, he remains with an alteration in mental status and inability to care for himself, and I am concerned for his success in the outpatient environment given his failure to thrive. I reached out to the hospitalist team who has graciously accepted him for admission to their service for ongoing workup and management and likely palliative care consults while inpatient. Patient remained hemodynamically appropriate while under my care. Татьяна Rocha MD Quality:SDOH Health Related Social Needs: Health related social needs material hardship house/econ circumstance Health related social needs details patient is non verbal, other info was taken from ER documentation. 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) Pre-diabetes (Acute) Lung nodule (Acute) Lumbar spinal stenosis (Acute) Hyperlipidemia (Acute) GERD (gastroesophageal reflux disease) (Chronic) Depression, recurrent (Chronic) Dementia with behavioral disturbance (Acute) Cognitive changes (Acute) COAG (chronic open-angle glaucoma) (Acute) Status post cataract extraction of both eyes with insertion of intraocular lens (Acute) Benign prostatic hyperplasia (Chronic) Basal cell carcinoma of nose (Acute) ASCVD (arteriosclerotic cardiovascular disease) (Acute) Anxiety (Chronic) Congestive heart failure (Acute) Hx of falling (Acute) Concern about end of life (Acute) Pulmonary embolism associated with COVID-19 (Acute) COPD (chronic obstructive pulmonary disease) (Chronic) Breakthrough seizure (Acute) Medical History Broken arm CAD (coronary artery disease) Cataract Dementia H/O non-insulin dependent diabetes mellitus Hx of colonic polyp Hx of hyperlipidemia Myocardial infarction Neck pain Palliative care patient Paroxysmal atrial fibrillation Pneumonia Primary cutaneous marginal zone B-cell lymphoma Pulmonary embolism without acute cor pulmonale Seizure disorder Skin cancer of anterior chest UTI (urinary tract infection) Surgical History History of coronary artery stent placement History of tonsillectomy Family History Maternal Grandfather Leukemia Mother Alcohol use disorder Anxiety Cancer Social History Smoking/Tobacco Use Status: Former Tobacco Use Tobacco: How many years used: 40 Second Hand Exposure: Yes Smoking risk assessment performed?: Yes Alcohol Intake: current Alcohol Intake frequency: holidays/special occasions only Drug use: Never Substance use type: does not use Adopted: No Foster care: No Household members: spouse Housing: house Number of Children: 4 Communication Needs: Hard of Hearing and Corrective Lenses Education Level: high school Do you need help understanding health information?: Often current occupation: retired Pets and animals: No Sexually active: No Do you think of yourself as: straight/heterosexual Current gender identity: male What is your relationship status?: How often do you talk on the phone with friends or family?: three or more times per week How often do you get together with friends or relatives?: decline to answer Do you belong to any clubs or organized social groups?: no Panel score (0-1 are the most socially isolated patients): 2 What type of physical activity do you participate in: additional Details: is in PT twice a week Duration: 15-30 minutes/day Frequency: 5-6 times per week Meenu/Jain: Roman Catholic Special meenu needs: No Seatbelt use: always Helmet use: No Drive intox or ride w/intox bulk driver: No Do you feel safe at home: Yes Do you feel safe in your relationship?: Yes
[2024-11-05 17:18] LABS: Glucose Negative (Negative)
[2024-11-05 17:26] LABS: RBC Morphology Normal
[2024-11-05 17:26] LABS: C & S Indicated? No; WBC 0-2 HPF (0-5)
[2024-11-05 17:32] LABS: ALT 20 U/L (16-63); AST 30 U/L (15-37); Albumin 3.4 g/dL (3.4-5.0); Alkaline Phosphatase 75 U/L (46-116); Anion Gap 9.0 mmol/L (3-11); BUN 8 mg/dL (7-18); Bilirubin, Total 0.8 mg/dL (0.2-1.0); CO2 32.0 mmol/L (21.0-32.0); Calcium 9.2 mg/dL (8.5-10.1); Chloride 99 mmol/L (98-107); Estimated GFR 82.15 (mL/min/1.73m2); Glucose 109 mg/dL (74-106); Lipase 27 U/L (<78); Magnesium 2.1 mg/dL (1.8-2.4); NT-proBNP 598 pg/mL (<300); Potassium 4.3 mmol/L (3.5-5.1); Sodium 140 mmol/L (136-145); TSH (W/Ref FT4) 3.58 uIU/mL (0.36-3.74); Total Protein 7.1 g/dL (6.4-8.2); Troponin I 11 ng/L (<or=76)
[2024-11-05] MEDS: Normal Saline - Diluent 50 ML VIAL IJ (17:35)
[2024-11-05] MEDS: Normal Saline Flush 10 ML SYR IVP (17:36)
[2024-11-05] MEDS: Omnipaque 350 MG/ML 100 ML BTL IJ (17:36)
[2024-11-05 18:24] LABS: Troponin I 10 ng/L (<or=76)
[2024-11-05] MEDS: AZITHROMYCIN 500 MG in Normal Saline 250 ML 250 MG IVPB (19:06)
[2024-11-05] MEDS: cefTRIAXone 1 GM/50 ML BAG IVPB (19:06)
--- NOTE | 2024-11-05 20:01 | W.PC.ACHO ---
Registration Status: REG ER Primary Language: Preferred Language: Bengali ED Information & Data Chief Complaint GenMedical 11/05/24 17:58 Chief Complaint GenMedical 11/05/24 17:14 Triage Note Increased lethargy over past 11/05/24 16:31 several days. Hx of dementia. Family concerned about decreased activity. EMS reports abnormal junky lung sounds. Medical / Surgical History (Last Reviewed 06/14/24 @ 14:29 by Chantel Prado RN) Pneumonia Paroxysmal atrial fibrillation Primary cutaneous marginal zone B-cell lymphoma Cataract Skin cancer of anterior chest Pulmonary embolism without acute cor pulmonale Neck pain Hx of colonic polyp Broken arm Palliative care patient CAD (coronary artery disease) Seizure disorder H/O non-insulin dependent diabetes mellitus UTI (urinary tract infection) Myocardial infarction Hx of hyperlipidemia Dementia (Last Reviewed 06/14/24 @ 14:29 by Chantel Prado RN) History of tonsillectomy History of coronary artery stent placement Most Recent Vital Signs Temperature 36.6 C 11/05/24 17:05 Pulse 84 11/05/24 17:05 Respiratory Rate 20 11/05/24 17:05 Respiratory Effort Normal 11/05/24 17:59 Respiratory Depth Normal 11/05/24 17:59 Respiratory Pattern Normal 11/05/24 17:59 Blood Pressure 121/73 11/05/24 17:05 Pulse Oximetry 94 11/05/24 17:05 Oxygen Delivery Method Room Air 11/05/24 17:05 Oxygen Flow Rate 0 11/05/24 17:05 Allergies oxycodone (From Percocet) Adverse Reaction (Unverified 11/05/24 16:35) Other (See Comment) Penicillins Adverse Reaction (Unverified 11/05/24 16:35) Other (See Comment) Active Medications Generic Name Dose Route Start Last Admin Trade Name Freq PRN Reason Stop Dose Admin Iohexol 100 ml 11/05/24 17:45 11/05/24 17:36 Omnipaque 350 Mg/Ml 100 Ml Btl IJ 12/05/24 23:59 70 ml DIRECTED RAS Administration Sodium Chloride 0 ml 11/05/24 17:34 11/05/24 17:36 Normal Saline Flush 10 Ml Syr IVP 10 ml PRN PRN Administration Sodium Chloride 50 ml 11/05/24 17:45 11/05/24 17:35 Normal Saline - Diluent 50 Ml Vial IJ 50 ml DIRECTED RAS Administration IV IV Catheter Type [Left Saline Lock Antecubital] IV Catheter Gauge [Left 20 Antecubital] Diagnostics 11/05/24 11/05/24 11/05/24 Range/Units 19:36 17:55 17:15 WBC (4.4-10.8) 10^3/uL RBC (4.36-5.78) 10^6/uL Hgb (13.5-17.5) g/dL Hct (40.0-50.0) % MCV (80-95) fL MCH (27.0-33.0) pg MCHC (32.0-36.0) % RDW (11.8-14.1) % Plt Count (130-400) 10^3/uL MPV (8.0-11.0) fL Immature Gran % % Neutrophils % % Lymphocytes % % Monocytes % % Eosinophils % % Basophils % % Nucleated RBC % (0.0-0.3) % Absolute Neutrophils (1.2-6.7) 10^3/uL Absolute Lymphocytes (1.2-3.4) 10^3/uL Absolute Monocytes (0.1-0.8) 10^3/uL Absolute Eosinophils (0.0-0.7) 10^3/uL Absolute Basophils (0.0-0.2) 10^3/uL RBC Morphology Sodium (136-145) mmol/L Potassium (3.5-5.1) mmol/L Chloride (98-107) mmol/L Carbon Dioxide (21.0-32.0) mmol/L Anion Gap (3-11) mmol/L BUN (7-18) mg/dL Creatinine (0.70-1.30) mg/dL Est GFR (CKD-EPI 2020) (mL/min/1.73m2) Glucose (74-106) mg/dL Calcium (8.5-10.1) mg/dL Magnesium (1.8-2.4) mg/dL Total Bilirubin (0.2-1.0) mg/dL AST (15-37) U/L ALT (16-63) U/L Alkaline Phosphatase (46-116) U/L Troponin I Cancelled 10 (<or=76) ng/L NT-Pro-B Natriuret Pep (<300) pg/mL Total Protein (6.4-8.2) g/dL Albumin (3.4-5.0) g/dL Lipase (<78) U/L TSH (0.36-3.74) uIU/mL Urine Color Dark Yellow (Yellow) Urine Clarity Clear (Clear) Urine pH 7.0 (5-8) Ur Specific [place] 1.020 (1.005-1.025) Urine Protein 100 H (Neg-Trace) mg/dL Urine Ketones 15 H (Negative) mg/dL Urine Blood Negative (Negative) Urine Nitrite Negative (Negative) Urine Bilirubin Small H (Negative) Urine Urobilinogen 4.0 H (Up to 0.2) mg/dL Ur Leukocyte Esterase Negative (Negative) Urine RBC 3-5 H (0-2) HPF Urine WBC 0-2 (0-5) HPF Ur Epithelial Cells Rare (Negative) HPF Urine Crystals Negative (Negative) HPF Urine Bacteria Few (Negative) HPF Urine Casts Negative (Negative) LPF Urine Mucus Trace (Negative) Ur Culture Indicated? No Urine Glucose Negative (Negative) mg/dL 11/05/24 Range/Units 17:01 WBC 7.28 (4.4-10.8) 10^3/uL RBC 4.62 (4.36-5.78) 10^6/uL Hgb 14.9 (13.5-17.5) g/dL Hct 43.2 (40.0-50.0) % MCV 94 (80-95) fL MCH 32.3 (27.0-33.0) pg MCHC 34.5 (32.0-36.0) % RDW 13.6 (11.8-14.1) % Plt Count 120 L (130-400) 10^3/uL MPV 10.3 (8.0-11.0) fL Immature Gran % 1.4 % Neutrophils % 49.3 % Lymphocytes % 13.2 % Monocytes % 35.7 % Eosinophils % 0.1 % Basophils % 0.3 % Nucleated RBC % 0.0 (0.0-0.3) % Absolute Neutrophils 3.59 (1.2-6.7) 10^3/uL Absolute Lymphocytes 0.96 L (1.2-3.4) 10^3/uL Absolute Monocytes 2.60 H (0.1-0.8) 10^3/uL Absolute Eosinophils 0.01 (0.0-0.7) 10^3/uL Absolute Basophils 0.02 (0.0-0.2) 10^3/uL RBC Morphology Normal Sodium 140 (136-145) mmol/L Potassium 4.3 (3.5-5.1) mmol/L Chloride 99 (98-107) mmol/L Carbon Dioxide 32.0 (21.0-32.0) mmol/L Anion Gap 9.0 (3-11) mmol/L BUN 8 (7-18) mg/dL Creatinine 0.9 (0.70-1.30) mg/dL Est GFR (CKD-EPI 2020) 82.15 (mL/min/1.73m2) Glucose 109 H (74-106) mg/dL Calcium 9.2 (8.5-10.1) mg/dL Magnesium 2.1 (1.8-2.4) mg/dL Total Bilirubin 0.8 (0.2-1.0) mg/dL AST 30 (15-37) U/L ALT 20 (16-63) U/L Alkaline Phosphatase 75 (46-116) U/L Troponin I 11 (<or=76) ng/L NT-Pro-B Natriuret Pep 598 H (<300) pg/mL Total Protein 7.1 (6.4-8.2) g/dL Albumin 3.4 (3.4-5.0) g/dL Lipase 27 (<78) U/L TSH 3.58 (0.36-3.74) uIU/mL Urine Color (Yellow) Urine Clarity (Clear) Urine pH (5-8) Ur Specific [place] (1.005-1.025) Urine Protein (Neg-Trace) mg/dL Urine Ketones (Negative) mg/dL Urine Blood (Negative) Urine Nitrite (Negative) Urine Bilirubin (Negative) Urine Urobilinogen (Up to 0.2) mg/dL Ur Leukocyte Esterase (Negative) Urine RBC (0-2) HPF Urine WBC (0-5) HPF Ur Epithelial Cells (Negative) HPF Urine Crystals (Negative) HPF Urine Bacteria (Negative) HPF Urine Casts (Negative) LPF Urine Mucus (Negative) Ur Culture Indicated? Urine Glucose (Negative) mg/dL Intake and Output - 24 Hour Total 11/05/24 16:25 thru 11/05/24 16:31 Weight 54.431 kg Falls Risk Assessment History of Falls No History 11/05/24 16:36 Contributing Factors Confusion,Impairments 11/05/24 16:36 Ambulatory Aids Uses ambulatory device 11/05/24 16:36 Gait Evaluation W/any additional score 11/05/24 16:36 Cognition Cognitive impairment 11/05/24 16:36 Fall Total Score 56 11/05/24 16:36 Level of Risk High Risk 11/05/24 16:36 v v v v v v v v v Sending and/or Receiving Nurses: Please use comment section below to note any information pertinent to the patient hand-off not included above. Information / Comments: Report taken from ED RN Liang. patient is non verbal, has history of dementia. High risk for fall. Has wound of right forearm. Been straight cath, obtained 100 cc clear urine., been incontinent of urine as reported. Received rocephine, azithromax per ED nurse report. Report received from:
[2024-11-05 20:25] VITALS: BP 127/68; PULSE 67; RESP 18; TEMP 36.2; O2SAT 93
[2024-11-05] MEDS: Lacosamide 100 MG TAB PO (20:44)
[2024-11-05] MEDS: Memantine 5 MG TAB PO (20:44)
[2024-11-05 20:55] VITALS: BP 127/68; PULSE 67; RESP 18; TEMP 36.2; O2SAT 93
--- NOTE | 2024-11-05 21:31 | TELEP.MEDR_ITS ---
Date of service: 11/05/24 Time of Service: 21:31 Telepharmacy Home Med Rec Allergies Allergies: oxycodone (From Percocet) Adverse Reaction (Unverified 11/05/24 16:35) Other (See Comment) Penicillins Adverse Reaction (Unverified 11/05/24 16:35) Other (See Comment) Interview Person Interviewed: No interview. Patient unable to participate and family member not available at this time. Patient was seen in primary care within last one day, and meds were confirmed in office and via dispense history. Quality Quality of Interview/Accuracy of Medication List: Good Sources Sources used to compile medication list: [employer] Medication List and PCP/Specialist List Changes made to Home Medication List: ADDITIONS: none DELETIONS: none CHANGES: none Additional Notes Additional Notes: none Recommended Changes Recommended Changes(reason for recommendation): none Attestation: The home medication list is now updated to the best of my knowledge and is ready to be reconciled by the provider. Please contact the TelePharmacy Medication Reconciliation Pharmacist at for any questions.
--- NOTE | 2024-11-05 21:36 | W.PM.HP.N ---
Date of service: 11/05/24 Time of Service: 21:36 Assessment and Plan Assessment and plan (1) Failure to thrive in adult: Status: Acute Assessment and plan: - Likely secondary to end-stage dementia - Appreciate palliative care discussion with family on goals of care (2) Dementia: Status: Chronic Assessment and plan: - As noted above - Continue home valproic acid, memantine, donepezil as patient will tolerate (3) Cellulitis of forearm, right: Status: Acute Assessment and plan: - Continue clindamycin as patient will tolerate (4) Unintentional weight loss: Status: Acute Assessment and plan: - Likely secondary to failure to thrive, dementia as noted above his patient has not been noted to be eating or drinking History of Present Illness History of Present Illness Chief Complaint: weakness Narrative: 89-year-old male with a past medical history of dementia, coronary artery disease, hypertension presents emergency department with weakness and failure to thrive. Patient was most recently seen in the emergency department on 11/03/2024 after multiple falls at home so small areas of cellulitis. At that time family was offered admission but they declined. However, since that time patient has become nonverbal, difficult to awaken has not taken any of his p.o. medications including his prescribed clindamycin for his cellulitis. Family has not noticed any fever, vomiting, coughing. In the emergency department the patient was noted as having normal vital signs, normal chest x-ray, normal CBC, CMP, CTA chest showing left internal carotid artery stenosis of 90% but no signs of stroke or bleeding. Additionally, troponins were negative as was UA. While in the emergency department the patient was given azithromycin and ceftriaxone for some increased sputum and coarse breath sounds as well as a 500 cc bolus of fluid. At which time, emergency room provider paged hospitalist for admission for patient with failure to thrive. Review of Systems All systems reviewed & are unremarkable except as noted in HPI and below PFSH All Active Problems (Updated 11/05/24 @ 21:40 by Oli Escudero MD) Dementia (Chronic) Failure to thrive in adult (Acute) Cellulitis of forearm, right (Acute) Thrombocytopenia (Chronic) Frequent falls (Acute) Actinic keratosis (Acute) Unintentional weight loss (Acute) Agitation due to dementia (Acute) Falls (Acute) Dependence on caregiver (Acute) Frontotemporal dementia (Acute) COPD with exacerbation (Acute) Noncompliance with medications (Acute) Elevated troponin (Acute) Seizure (Acute) Onychomycosis (Acute) Obstructive sleep apnea (Chronic) Rosacea (Acute) 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) Pre-diabetes (Acute) Lung nodule (Acute) Lumbar spinal stenosis (Acute) Hyperlipidemia (Acute) GERD (gastroesophageal reflux disease) (Chronic) Depression, recurrent (Chronic) Dementia with behavioral disturbance (Acute) Cognitive changes (Acute) COAG (chronic open-angle glaucoma) (Acute) Status post cataract extraction of both eyes with insertion of intraocular lens (Acute) Benign prostatic hyperplasia (Chronic) Basal cell carcinoma of nose (Acute) ASCVD (arteriosclerotic cardiovascular disease) (Acute) Anxiety (Chronic) Congestive heart failure (Acute) Hx of falling (Acute) Concern about end of life (Acute) Pulmonary embolism associated with COVID-19 (Acute) COPD (chronic obstructive pulmonary disease) (Chronic) Breakthrough seizure (Acute) Medical History Broken arm CAD (coronary artery disease) Cataract Dementia H/O non-insulin dependent diabetes mellitus Hx of colonic polyp Hx of hyperlipidemia Myocardial infarction Neck pain Palliative care patient Paroxysmal atrial fibrillation Pneumonia Primary cutaneous marginal zone B-cell lymphoma Pulmonary embolism without acute cor pulmonale Seizure disorder Skin cancer of anterior chest UTI (urinary tract infection) Surgical History History of coronary artery stent placement History of tonsillectomy Family History Maternal Grandfather Leukemia Mother Alcohol use disorder Anxiety Cancer Social History Smoking/Tobacco Use Status: Former Tobacco Use Tobacco: How many years used: 40 Second Hand Exposure: Yes Smoking risk assessment performed?: Yes Alcohol Intake: current Alcohol Intake frequency: holidays/special occasions only Drug use: Never Substance use type: does not use Adopted: No Foster care: No Household members: spouse Housing: house Number of Children: 4 Communication Needs: Hard of Hearing and Corrective Lenses Education Level: high school Do you need help understanding health information?: Often current occupation: retired Pets and animals: No Sexually active: No Do you think of yourself as: straight/heterosexual Current gender identity: male What is your relationship status?: How often do you talk on the phone with friends or family?: three or more times per week How often do you get together with friends or relatives?: decline to answer Do you belong to any clubs or organized social groups?: no Panel score (0-1 are the most socially isolated patients): 2 What type of physical activity do you participate in: additional Details: is in PT twice a week Duration: 15-30 minutes/day Frequency: 5-6 times per week Meenu/Restoration: Jain Special meenu needs: No Seatbelt use: always Helmet use: No Drive intox or ride w/intox seasonal driver: No Do you feel safe at home: Yes Do you feel safe in your relationship?: Yes Meds Allergies and Home Medications Allergies Allergy/AdvReac Type Severity Reaction Status Date / Time oxycodone (From Percocet) AdvReac Other (See Unverified 11/05/24 16:35 Comment) Penicillins AdvReac Other (See Unverified 11/05/24 16:35 Comment) Home Medications ?Medication ?Instructions ?Recorded ?Confirmed ?Type acetaminophen 500 mg tablet 1,000 mg (2 x 500 mg) PO Q8H PRN 02/18/23 11/05/24 Rx PRN #30 tabs tamsulosin 0.4 mg capsule 0.4 mg PO DAILY #90 caps 03/23/24 11/05/24 Rx docusate sodium 100 mg capsule 100 mg PO BID #60 caps 05/11/24 11/05/24 Rx aspirin 81 mg tablet,delayed 81 mg PO DAILY 06/14/24 11/05/24 History release multivitamin 1 tab PO DAILY 06/14/24 11/05/24 History donepezil 10 mg tablet 10 mg PO HS #90 tabs 07/06/24 11/05/24 Rx lacosamide 100 mg tablet 100 mg PO BID #60 tabs 08/27/24 11/05/24 Rx valproic acid (as sodium salt) 250 250 mg (5 mL) PO QID #473 mL 10/19/24 11/05/24 Rx mg/5 mL oral solution clindamycin HCl 150 mg capsule 300 mg PO BID Cellulitis 11/05/24 11/05/24 History memantine 5 mg tablet 5 mg PO QHS 11/05/24 11/05/24 History Exam Narrative Exam Narrative: Chronically ill-appearing older gentleman laying in bed in no acute distress, nonverbal, heart regular rhythm, lungs with minimal coarse breath sounds throughout, abdomen soft, nontender, nondistended Results Labs 11/05/24 17:01 11/05/24 17:01 Labs: Laboratory Results - last 24 hr 11/05/24 11/05/24 11/05/24 17:01 17:15 17:55 WBC 7.28 RBC 4.62 Hgb 14.9 Hct 43.2 MCV 94 MCH 32.3 MCHC 34.5 RDW 13.6 Plt Count 120 L MPV 10.3 Immature Gran % 1.4 Neutrophils % 49.3 Lymphocytes % 13.2 Monocytes % 35.7 Eosinophils % 0.1 Basophils % 0.3 Nucleated RBC % 0.0 Absolute Neutrophils 3.59 Absolute Lymphocytes 0.96 L Absolute Monocytes 2.60 H Absolute Eosinophils 0.01 Absolute Basophils 0.02 RBC Morphology Normal Sodium 140 Potassium 4.3 Chloride 99 Carbon Dioxide 32.0 Anion Gap 9.0 BUN 8 Creatinine 0.9 Est GFR (CKD-EPI 2020) 82.15 Glucose 109 H Calcium 9.2 Magnesium 2.1 Total Bilirubin 0.8 AST 30 ALT 20 Alkaline Phosphatase 75 Troponin I 11 10 NT-Pro-B Natriuret Pep 598 H Total Protein 7.1 Albumin 3.4 Lipase 27 TSH 3.58 Urine Color Dark Yellow Urine Clarity Clear Urine pH 7.0 Ur Specific [place] 1.020 Urine Protein 100 H Urine Ketones 15 H Urine Blood Negative Urine Nitrite Negative Urine Bilirubin Small H Urine Urobilinogen 4.0 H Ur Leukocyte Esterase Negative Urine RBC 3-5 H Urine WBC 0-2 Ur Epithelial Cells Rare Urine Crystals Negative Urine Bacteria Few Urine Casts Negative Urine Mucus Trace Ur Culture Indicated? No Urine Glucose Negative 11/05/24 19:36 WBC RBC Hgb Hct MCV MCH MCHC RDW Plt Count MPV Immature Gran % Neutrophils % Lymphocytes % Monocytes % Eosinophils % Basophils % Nucleated RBC % Absolute Neutrophils Absolute Lymphocytes Absolute Monocytes Absolute Eosinophils Absolute Basophils RBC Morphology Sodium Potassium Chloride Carbon Dioxide Anion Gap BUN Creatinine Est GFR (CKD-EPI 2020) Glucose Calcium Magnesium Total Bilirubin AST ALT Alkaline Phosphatase Troponin I Cancelled NT-Pro-B Natriuret Pep Total Protein Albumin Lipase TSH Urine Color Urine Clarity Urine pH Ur Specific [place] Urine Protein Urine Ketones Urine Blood Urine Nitrite Urine Bilirubin Urine Urobilinogen Ur Leukocyte Esterase Urine RBC Urine WBC Ur Epithelial Cells Urine Crystals Urine Bacteria Urine Casts Urine Mucus Ur Culture Indicated? Urine Glucose Last Vital Signs Temp 97.2 F L 11/05/24 20:55 Pulse 67 11/05/24 20:55 Resp 18 11/05/24 20:55 BP 127/68 11/05/24 20:55 Pulse Ox 93 11/05/24 20:55 Time Spent Time spent with Patient: >75 minutes Time was spent: preparing to see the patient(eg.review tests), obtaining and/or reviewing separately otained hiistory, ordering medications,tests, procedures, referring, communicating with other health childcare aide, indepentently interpreting results, counseling the patient and care coordination
[2024-11-05 23:26] VITALS: BP 95/57; PULSE 56; RESP 19; TEMP 36.8; O2SAT 99
[2024-11-06] VITALS (7 sets, daily range): BP systolic 105–152; BP diastolic 48–72; PULSE 60–77; RESP 16–26; TEMP 36.4–36.8; O2SAT 90–99
[2024-11-06 06:23] LABS: HCT 39.7 % (40.0-50.0); HGB 13.6 g/dL (13.5-17.5); MCH 32.4 pg (27.0-33.0); MCHC 34.3 % (32.0-36.0); MCV 95 fL (80-95); MPV 10.3 fL (8.0-11.0); Platelet Count 105 10^3/uL (130-400); RBC 4.20 10^6/uL (4.36-5.78); RDW 13.6 % (11.8-14.1); RDW-SD 47.0 fL; WBC 6.33 10^3/uL (4.4-10.8)
[2024-11-06 06:37] LABS: Anion Gap 7.4 mmol/L (3-11); BUN 9 mg/dL (7-18); CO2 32.6 mmol/L (21.0-32.0); Calcium 8.9 mg/dL (8.5-10.1); Chloride 101 mmol/L (98-107); Estimated GFR 82.15 (mL/min/1.73m2); Glucose 95 mg/dL (74-106); Magnesium 2.0 mg/dL (1.8-2.4); Potassium 4.3 mmol/L (3.5-5.1); Sodium 141 mmol/L (136-145)
[2024-11-06] MEDS: Acetaminophen 325 MG TAB 650 MG PO ×2 (09:22→19:53)
[2024-11-06] MEDS: Enoxaparin 40 MG/0.4 ML SYR SC (09:23)
[2024-11-06] MEDS: Lacosamide 100 MG TAB PO ×2 (09:23→19:54)
[2024-11-06] MEDS: Clindamycin 150 MG CAP 300 MG PO (09:23)
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
[2024-11-06] MEDS: POTASSIUM CHLORIDE/D5-0.45NACL 1,000 ML 100 MEQ IV (13:35)
--- NOTE | 2024-11-06 16:01 | PGE_ITS ---
Date of Service Date of service: 11/06/24 Time of Service: 16:01 Assessment and Plan Assessment and plan (1) Acute respiratory failure with hypoxia: Status: Resolved Assessment and plan: Unclear etiology, this does appear to be new/acute. Exam today concerning for pneumonia and there is a concern for aspiraiton, so I continued the ceftriaxone and added metronidazole rather than clindamycin. PA/Lat CXR still not revealing however. NPO for swallow evaluation, started on fluids EKG/troponins and BNaP not c/w ACS or CHF He does have h/o COPD, try treating this as below. He also has a history of PE during COVID. Consider CTA if still hypoxic after treating as above. (2) COPD (chronic obstructive pulmonary disease): Status: Chronic Assessment and plan: Possible exacerbation. Treat with steroids and duonebs. (3) Dementia: Status: Chronic Assessment and plan: - This is baseline. Continue home memantine, donepezil as patient will tolerate (4) Seizure: Status: Acute Assessment and plan: Valproate level high, hold today and resume at lower dose. This is concnerning with some evidence of liver fibrosis. Continue lacosamide (5) Thrombocytopenia: Status: Chronic Assessment and plan: Unclear etiology, has developed over the past couple years. AST/ALT ration suggests liver fibrosis/cirrhosis as cause. No cirrhosis on previous imaging, but last abdominal imaging in 08/04. Add b12 to labs. (6) Failure to thrive in adult: Status: Acute Assessment and plan: - Likely secondary to end-stage dementia - Appreciate palliative care discussion with family on goals of care, consult still pending. (7) Cellulitis of forearm, right: Status: Acute Assessment and plan: - Continue ceftriaxone as NPO, should cover pneumonia and cellulitis. (8) DVT prophylaxis: Status: Acute Assessment and plan: enoxaparin Subjective Subjective Patient reports: no new complaints; denies diarrhea, vomiting or fever Interval history since last seen: Events: no events, no new concerns He is alert, states he is tip top. Answers yes to specific questions but does not appears to understand. Exam Narrative Exam Narrative: Older gentleman laying in bed in no acute distress, not oriented, but alert, heart regular rhythm, lungs with rales on the right, more clear on the left., abdomen soft, nontender, nondistended. extremities without c/c/e Objective Last Vital Signs Temp 36.7 C 11/06/24 15:15 Pulse 75 11/06/24 15:15 Resp 16 11/06/24 15:15 BP 145/48 H 11/06/24 15:15 Pulse Ox 99 11/06/24 15:15 Laboratory Results - last 24 hr 11/05/24 11/05/24 11/05/24 17:01 17:15 17:55 WBC 7.28 RBC 4.62 Hgb 14.9 Hct 43.2 MCV 94 MCH 32.3 MCHC 34.5 RDW 13.6 Plt Count 120 L MPV 10.3 Immature Gran % 1.4 Neutrophils % 49.3 Lymphocytes % 13.2 Monocytes % 35.7 Eosinophils % 0.1 Basophils % 0.3 Nucleated RBC % 0.0 Absolute Neutrophils 3.59 Absolute Lymphocytes 0.96 L Absolute Monocytes 2.60 H Absolute Eosinophils 0.01 Absolute Basophils 0.02 RBC Morphology Normal Sodium 140 Potassium 4.3 Chloride 99 Carbon Dioxide 32.0 Anion Gap 9.0 BUN 8 Creatinine 0.9 Est GFR (CKD-EPI 2020) 82.15 Glucose 109 H Calcium 9.2 Magnesium 2.1 Total Bilirubin 0.8 AST 30 ALT 20 Alkaline Phosphatase 75 Troponin I 11 10 NT-Pro-B Natriuret Pep 598 H Total Protein 7.1 Albumin 3.4 Lipase 27 TSH 3.58 Urine Color Dark Yellow Urine Clarity Clear Urine pH 7.0 Ur Specific [place] 1.020 Urine Protein 100 H Urine Ketones 15 H Urine Blood Negative Urine Nitrite Negative Urine Bilirubin Small H Urine Urobilinogen 4.0 H Ur Leukocyte Esterase Negative Urine RBC 3-5 H Urine WBC 0-2 Ur Epithelial Cells Rare Urine Crystals Negative Urine Bacteria Few Urine Casts Negative Urine Mucus Trace Ur Culture Indicated? No Urine Glucose Negative 11/05/24 11/06/24 19:36 06:00 WBC 6.33 RBC 4.20 L Hgb 13.6 Hct 39.7 L MCV 95 MCH 32.4 MCHC 34.3 RDW 13.6 Plt Count 105 L MPV 10.3 Immature Gran % Neutrophils % Lymphocytes % Monocytes % Eosinophils % Basophils % Nucleated RBC % Absolute Neutrophils Absolute Lymphocytes Absolute Monocytes Absolute Eosinophils Absolute Basophils RBC Morphology Sodium 141 Potassium 4.3 Chloride 101 Carbon Dioxide 32.6 H Anion Gap 7.4 BUN 9 Creatinine 0.9 Est GFR (CKD-EPI 2020) 82.15 Glucose 95 Calcium 8.9 Magnesium 2.0 Total Bilirubin AST ALT Alkaline Phosphatase Troponin I Cancelled NT-Pro-B Natriuret Pep Total Protein Albumin Lipase TSH Urine Color Urine Clarity Urine pH Ur Specific [place] Urine Protein Urine Ketones Urine Blood Urine Nitrite Urine Bilirubin Urine Urobilinogen Ur Leukocyte Esterase Urine RBC Urine WBC Ur Epithelial Cells Urine Crystals Urine Bacteria Urine Casts Urine Mucus Ur Culture Indicated? Urine Glucose Time Spent with Patient Time Spent with Patient: 35-49 minutes Time was spent: preparing to see the patient(eg.review tests), obtaining and/or reviewing separately otained hiistory, ordering medications,tests, procedures, referring, communicating with other health senior care assistant, indepentently interpreting results, counseling the patient and care coordination
[2024-11-06] MEDS: cefTRIAXone 1 GM/50 ML BAG IVPB (16:51)
--- NOTE | 2024-11-06 17:22 | DI.RAD_ITS ---
Exam(s) XR CHEST 2V PA LATERAL EXAM: XR CHEST 2V PA LATERAL CLINICAL HISTORY: hypoxia, rales right side, negative AP. TECHNIQUE: 2D digital imaging was performed. COMPARISON: CR XR CHEST 1V IN DI DEPT from 11/05/[address] BRAIN NECK CTA from 11/05/2024 FINDINGS: 2 views: Heart size is normal. The mediastinum is not widened. No infiltrates nor pleural effusions. No evidence of pulmonary edema. IMPRESSION: No acute pulmonary findings. DATA REPOSITORY: RADIATION DOSE DELIVERED:
[2024-11-06] MEDS: metroNIDAZOLE 500 MG/100 ML BAG 100 MG IVPB (17:52)
[2024-11-06] MEDS: predniSONE 20 MG TAB 40 MG PO (18:34)
[2024-11-06] MEDS: Memantine 5 MG TAB PO (19:54)
[2024-11-06] MEDS: Donepezil 5 MG TAB 10 MG PO (19:54)
[2024-11-06] MEDS: Albuterol/Ipratropium 3 ML UPD VIAL UPD (20:51)
[2024-11-07] VITALS (7 sets, daily range): BP systolic 94–126; BP diastolic 52–87; PULSE 56–73; RESP 16–18; TEMP 36.1–36.7; O2SAT 91–99
[2024-11-07] MEDS: POTASSIUM CHLORIDE/D5-0.45NACL 1,000 ML 100 MEQ IV ×2 (00:53→13:05)
[2024-11-07] MEDS: metroNIDAZOLE 500 MG/100 ML BAG 100 MG IVPB ×3 (01:48→17:00)
[2024-11-07] MEDS: Albuterol/Ipratropium 3 ML UPD VIAL UPD (02:05)
[2024-11-07 07:47] LABS: Anion Gap 4.4 mmol/L (3-11); BUN 11 mg/dL (7-18); CO2 31.6 mmol/L (21.0-32.0); Calcium 8.7 mg/dL (8.5-10.1); Chloride 102 mmol/L (98-107); Estimated GFR 85.12 (mL/min/1.73m2); Glucose 204 mg/dL (74-106); Potassium 4.3 mmol/L (3.5-5.1); Sodium 138 mmol/L (136-145)
[2024-11-07] MEDS: Enoxaparin 40 MG/0.4 ML SYR SC (09:16)
[2024-11-07] MEDS: Lacosamide 100 MG TAB PO ×2 (09:17→20:18)
[2024-11-07] MEDS: predniSONE 20 MG TAB 40 MG PO (09:17)
--- NOTE | 2024-11-07 12:02 | W.SPSTE ---
Date of service: 11/07/24 Time of Service: 11:30 Subjective Clinical (Bedside) Swallow Evaluation - Inpatient Speech Language Pathology Referred by: Dr Hendricks Referral Type: Routine Swallow Consult Precautions: Standard, Fall, DNR/DNI Reason for Referral/HPI: Lokesh is an 89 y/o M with advanced dementia (vascular/FTD), COPD hx, seizure hx, CAD, CHF GERD, who is admitted with failure to thrive, cellulitis (declined admission previously and did not start antibiotics at home), increased falls, hypoxia (initially admitted and put on on nasal cannula but no longer requiring this at time of ASSISTANT CASE MANAGER evaluation) and workup for possible aspiration concerns vs COPD exacerbation, given hypoxia, wet breathing sounds and reduced PO intake at home. Chest X-rays are without infiltrates or acute findings x 2 days, and he has shown some improvement with steroids as well as abx. Per nursing he was unable to take meds orally initially but this has improved today and he was able to take them whole with puree. Largely nonverbal and with decreased wakefulness on admit. Given initial concerns for aspiration causing hypoxia, he was placed NPO awaiting this evaluation. ASSISTANT CASE MANAGER IMPRESSIONS & RECOMMENDATIONS: Lokesh presents with mild-mod oral>pharyngeal, likely acute on chronic dysphagia at this time, largely suspected due to dementia, with suspected acute overlay of COPD exacerbation and/or AMS, now improving based on initial RN reports compared with performance at bedside today. Dysphagia appears largely cognitive at this time, with reduced rotary pattern and prolonged/disorganized mastication and some mild oral behaviors impacting efficiency, he tolerates all textures safely and with minimal oral residue. With sips of liquid, he consistently perform a sort of oral rinse/swish before piecemeal swallowing. Although his oral behaviors, cognitive status, and deconditioning do present some heightened risk of aspiration at this time, he appears to safely tolerate all liquid and solid boluses at bedside this date with aspiration precautions in place as outlined below. Patient is likely to benefit from modified diet given the above oral deficits to increase PO intake and reduce risk of choking, however, may benefit from follow-up for potential diet upgrade if he continues to have further mental status improvement while admitted. RECOMMENDATIONS Diet Recommendations: ? SOLIDS: 5-Minced & Moist Solids 4-Pureed Solids LIQUIDS: 0-Thin Liquids MEDICATIONS: Whole or Crushed as able (as tolerated) 1 at a time With 4-Purees Alter medications only as advised by MD or Pharmacist RISK MANAGEMENT: Level of Assistance/Supervision: 1:1Assistive feeding only by trained staff/family Positioning and environment: PO intake only when awake/alert? Reduce auditory and/or visual distractions when eating [place] upright for all PO intake. Oral hygiene Before/after PO intake Using friction with toothbrush on all oral structures as tolerated Suction PRN for secretion management or with oral care if he is unable to perform swish and spit vs swish and swallow. Strategies/Adaptations/Assistive Equipment: Small sips - straw ok - provide squeeze or assist for sip size Small bites Slow rate of intake Alternate intake of liquids and solids every few bites Ensure mouth is clear before proceeding FURTHER INPATIENT ASSISTANT CASE MANAGER SERVICES: Patient to be followed while on unit Discharge Recommendations: No further ASSISTANT CASE MANAGER services indicated/Please re-refer as needed SUBJECTIVE: Patient received: somnolent, easily rousable to voice. Agreeable to evaluation, very pleasant and cooperative throughout, to the best of his ability. I should be more sorry than you are! (when ASSISTANT CASE MANAGER apologizes for splashing water on patient while he is trying to drink from cup.) He is able to state his last and middle name with repeated questioning, but not usually in response to appropriate questions. Unclear if hearing loss is contributing, but likely at least some element of confusion. He is unable to follow most verbal instructions, but about 50% accurate with oral motor tasks when provided with direct model. Responds appropriately to most naturalistic elicitation during evaluation (e.g., asking Do you want pudding? and presenting spoonful. Pain Reported n/a Baseline Swallow Function: Unable to obtain, patient does not respond to most questions. Per history, he has been with drastically reduced PO intake in days leading up to admission. OBJECTIVE Patient positioning: As upright as possible using HOB/bed tilt controls Oral care: Habitat Conservation Planner assisting to complete oral care prior to PO trials Respiratory status: Room air, Tolerates well without s/sx dyspnea Orientation/Mental status: Oriented to self only , Appears with low insight into deficits, confused, unable to follow verbal instructions, intermittently verbally responsive, does well with visual model/naturalistic cues. Speech: WFL when present Oral Mechanism Examination: Dentition: Natural dentition Oral mucosa: WFL Cranial Nerve Assessment: Unable to perform formally, patient was able to perform tongue protrusion, cheek puff via imitation but no other tasks. Appears without any focal deficits. Unable to coordinate phonation to view palate elevation, but later, patient spontaneously with good phonation during speech. PO Intake: Trials Assessed: Ice x 3 small ice cubes IDDSI 0 Thin Liquids via tsp, cup edge, straw, self selected and clinician assisted IDDSI 4 Puree Solid - Applesauce, custard IDDSI 7 Regular Solid - Cracker Oral Phase Findings: Difficulty with a-p transport (appears very effortful) Difficulty chewing (reduced rotary motion, prolonged/inefficient) Minimal residue, though patient appears very aware of trace residue, spending a lot of time clearing solid residue, swishing before swallowing liquids, etc. Pharyngeal Phase Findings: WFL Esophageal Phase Findings: Belching observed ? Education Provided to: Nursing Topics Addressed: definition and impacts of aspiration impact of current diagnoses on swallow function relationship between reflux, GERD and swallow fxn relationship between respiratory function and deglutition rationale and instruction for additional risk management strategies as below PLAN: Frequency: 1-2x/week for 1-2 weeks Goals: Usp Goals: Patient will remain free from aspiration-related illness, malnutrition, and dehydration. Short Term Goals: Patient will tolerate Minced/Moist Diet and Thin liquids without overt s/s aspiration across 2/2 visits. Patient will tolerate PO trials for consideration of diet upgrade without overt s/s aspiration across 2/2 visits. ASSISTANT CASE MANAGER CPT Code: 01801 Clinical Swallowing Evaluation Start time: 11:30 End time: 12:00 Total patient contact: 30 min
--- NOTE | 2024-11-07 13:36 | PHA.REVIEW2 ---
Pharmacy Admission Review Admission Clinical Review Admission Pharmacy Review: DVT prophylaxis (Acute) Failure to thrive in adult (Acute) Cellulitis of forearm, right (Acute) Unintentional weight loss (Acute) Seizure (Acute) oxycodone (From Percocet) Adverse Reaction (Unverified 11/05/24 16:35) Other (See Comment) Penicillins Adverse Reaction (Unverified 11/05/24 16:35) Other (See Comment) Resuscitation Status DNR/DNI Height 5 ft 6 in Weight 55.565 kg Comments Comments/Follow Ups: Palliative consult / hospice discussions? per morning meeting Pharmacy Admission Review Renal Dosing Renal Dosing: BUN 11 mg/dL (7-18) 11/07/24 07:00 Creatinine 0.8 mg/dL (0.70-1.30) 11/07/24 07:00 Medications needing adjustments: Reviewed (CrCl 40.13 mL/min) List of meds needing interventions: Current medications are okay Anticoagulation Anticoagulation: Hgb 13.6 g/dL (13.5-17.5) 11/06/24 06:00 Hct 39.7 % (40.0-50.0) L 11/06/24 06:00 Plt Count 105 10^3/uL (130-400) L 11/06/24 06:00 Creatinine 0.8 mg/dL (0.70-1.30) 11/07/24 07:00 DVT Prophylaxis: Reviewed Medications: Enoxaparin (40mg daily) Relevant Labs Relevant Labs: Sodium 138 mmol/L (136-145) 11/07/24 07:00 Potassium 4.3 mmol/L (3.5-5.1) 11/07/24 07:00 Chloride 102 mmol/L (98-107) 11/07/24 07:00 Magnesium 2.0 mg/dL (1.8-2.4) 11/06/24 06:00 Electrolytes, C-Reactive P, ESR: Reviewed (glucose 204 at 0700) Cardiac Review Cardiac Review: Troponin I Cancelled 11/05/24 19:36 NT-Pro-B Natriuret Pep 598 pg/mL (<300) H 11/05/24 17:01 Blood Pressure 105/58 1128 Blood Pressure 111/87 0706 Blood Pressure 126/60 0337 BP, HR, EF%: Reviewed (HR 56) QTc Review QTc: Reviewed (421 from 8/25/25) IV to PO Switch IV Medications: Reviewed (ceftriaxone and metronidazole) Home Meds Home Med List reviewed: Reviewed Relevent Home Meds Not ordered & why?: aspirin, docusate, multivitamin and tamsulosin Patient currently NPO, swallow consult pending. Discuss tamsulosin with provider once patient is able to tolerate PO intake, Current Meds Current Medication Order Review: Intervened Comments: added IV admission order set Pharmacy Antibiotic Review Relevant Labs: WBC 6.33 10^3/uL (4.4-10.8) 11/06/24 06:00 Temperature 36.2 C Temperature 36.4 C Temperature 36.7 C Pharmacy Antibiotic Activity: C/S review and Reviewed, no change Comments: Patient is on ceftriaxone (day 2) and metronidazole (day 1), for pneumonia/cellulitis. Arm wound culture growing proteus mirabilis with no resistance. Comments Comments/Follow Ups: Palliative consult / hospice discussions? per morning meeting
--- NOTE | 2024-11-07 13:38 | PDOC.CMPRO ---
Date of service: 11/07/24 Time of Service: 13:38 Care Management Progress Note Progress Note Text Progress Note Text: Lokesh was sitting up in bed when CM met with him today. He was much more alert today than yesterday. He said Hi to CM in response, made eye contact, and even made a little joke. He looked comfortable and denied any pain. He is now ordered for PT, and nursing has been encouraged by CM to get Lokesh out of bed. CM returned a call to Hilda today, Lokesh's daughter. Hilda has concern's about her mom's ability to care for her father. She stated that her mom is becoming increasingly forgetful and is unsteady on her feet. She has concerns about the clutter in the home. Hilda has offered for her father to live with her, but Aletha is resistant. Palliative Care will be meeting with Lokesh and Aletha this afternoon, and will likely be referring to hospice. Palliative provider was made aware of Hilda's concerns. Discharge Potential Discharge Needs: PT Evaluation and Other (likely hospice admission) Anticipated Barriers to Discharge: None Identified and Other (coordination of hospice services) Patient/Family Education Needs: Review discharge instructions, discuss Ask Me Three Transportation: Other (unsure at this time, will depend on how he does with PT) Plan: Palliative Care will be meeting with Lokesh and his , Aletha, this afternoon. It is likely that Lokesh will be discharging home on hospice services, but CM will f/u with hospice after their meeting. Lokesh will likely be able to transport home via [facility] wheelchair van, vs private vehicle. CM will continue to follow Social Determinants of Health Screening Will the Patient Participate in the Screening?: Unable to obtain Do you worry about having a steady place to live?: choose not to answer In the past 12 months, have you had to go without electric, gas, oil or water in your home?: choose not to answer Has lack of transportation kept you from medical appointments or from doing things needed for daily living?: choose not to answer Has anyone in your life made you feel unsafe or unsupported?: choose not to answer How hard is it for you to pay for the very basics like food, housing, medical care, and heating? Would you say it is:: Somewhat hard Do you speak a language other than Citizen [place] at home?: No Does the patient want assistance with any of the above?: No Health Related Social Needs Health related social needs: material hardship(utilities) (Z59.12) and problems related to housing/economic circumstances (Z59.89) Health related social needs details: patient is non verbal, other info was taken from ER documentation.
[2024-11-07] MEDS: cefTRIAXone 1 GM/50 ML BAG IVPB (15:42)
--- NOTE | 2024-11-07 16:00 | PT.INIE ---
PT Notes Visit Reasons: Failure to Thrive Physical Therapy Inpatient Initial Evaluation Date: 11/07/2024 Referring Doctor: Dr Hendricks PT Orders: PT CONSULT:Safety Consult for D/C Precautions: Standard, fall, Seizure, IV Access Patient Profile/Admitting Diagnosis: Patient is a 89-year-old male with past medical history of dementia who presented to the ED with lethargy, weakness. Patient with recent presentation to the ED on 11/03/2024 was discharged home. Since discharge patient with multiple falls unable to provide care. Workup in the ED found normal vital signs, normal chest x-ray, normal CBC, CMP, CTA chest showing left internal carotid artery stenosis of 90% but no signs of stroke or bleeding. Additionally, troponins were negative as was UA. While in the emergency department the patient was given azithromycin and ceftriaxone for some increased sputum and coarse breath sounds as well as a 500 cc bolus of fluid. Patient was admitted with diagnosis of failure to thrive speech consult placed as well as palliative. PMHX: Dysphagia (Acute) Caregiver stress (Acute) Deficit in activities of daily living (ADL) (Acute) ACP (advance care planning) (Acute) Encounter for hospice care discussion (Acute) DVT prophylaxis (Acute) Dementia (Chronic) Failure to thrive in adult (Acute) Cellulitis of forearm, right (Acute) Thrombocytopenia (Chronic) Frequent falls (Acute) Actinic keratosis (Acute) Unintentional weight loss (Acute) Agitation due to dementia (Acute) Falls (Acute) Dependence on caregiver (Acute) Frontotemporal dementia (Acute) COPD with exacerbation (Acute) Noncompliance with medications (Acute) Elevated troponin (Acute) Seizure (Acute) Onychomycosis (Acute) Obstructive sleep apnea (Chronic) Rosacea (Acute) 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) Pre-diabetes (Acute) Lung nodule (Acute) Lumbar spinal stenosis (Acute) Hyperlipidemia (Acute) GERD (gastroesophageal reflux disease) (Chronic) Depression, recurrent (Chronic) Dementia with behavioral disturbance (Acute) Cognitive changes (Acute) COAG (chronic open-angle glaucoma) (Acute) Status post cataract extraction of both eyes with insertion of intraocular lens (Acute) Benign prostatic hyperplasia (Chronic) Basal cell carcinoma of nose (Acute) ASCVD (arteriosclerotic cardiovascular disease) (Acute) Anxiety (Chronic) Congestive heart failure (Acute) Hx of falling (Acute) Concern about end of life (Acute) Pulmonary embolism associated with COVID-19 (Acute) COPD (chronic obstructive pulmonary disease) (Chronic) Breakthrough seizure (Acute) Medical History Pneumonia Paroxysmal atrial fibrillation Primary cutaneous marginal zone B-cell lymphoma Cataract Skin cancer of anterior chest Pulmonary embolism without acute cor pulmonale Neck pain Hx of colonic polyp Broken arm Palliative care patient CAD (coronary artery disease) Seizure disorder H/O non-insulin dependent diabetes mellitus UTI (urinary tract infection) Myocardial infarction Hx of hyperlipidemia Surgical History History of tonsillectomy History of coronary artery stent placement Social History/Home Situation: lives with Equipment Owned/DME: They have a hospital bed in home. He has a walker and is able to ambulate. They have a WC and there is room for him to be navigated out of home. Subjective: Patient states he is ready to go dance but first he has to go to the bathroom Objective: General Observation: Elderly thin male Semi-De Paz position in bed with IV fluids infusing left upper extremity Mental Status: Alert and oriented to person, able to recognize . Able to follow simple one-step instructions, agreeable to participate in evaluation Pain: Denied ROM: [] Right Upper Extremity: WFL Left Upper Extremity: WFL Right Lower Extremity: WFL except dorsiflexion to neutral with knee extension Left Lower Extremity: WFL except dorsiflexion to neutral with knee extension Strength: [] Right Upper Extremity: Grossly 3/5 Left Upper Extremity: Grossly 3/5 Right Lower Extremity: Grossly 3/5 Left Lower Extremity: Grossly 3/5 Sensation: Appears intact to light touch unable to assess proprioception and kinesthetic awareness due to cognitive deficits Bed Mobility/Transfers: [] Supine to sit min A Sit to stand Min A Stand to sit CGA Bed to chair min A FWW Gait: amb with FWW Min A 20 feet x 2 decreased step length and foot clearance. Balance: [] Static Sitting: Normal Dynamic Sitting: Good Static Standing: Good with bilateral upper extremity support Dynamic Standing: Fair + with BUE support Special Tests: [] Mobility Limitations Standardized Measure [] [facility] AM-PAC 6 clicks Basic Mobility Inpatient Short Form: [] Raw Score: 18 CMS Score: 46.58% Informed Consent/Education: Patient instructed in purpose of PT consult. Assessment: Pt presents with dementia able to follow simple instructions. Pt can become overwhelmed with multistep instructions. Pt requires increased time to process instructions. He demonstrates ability to reach back for surfaces during stand to sit transfers without cues. Pt with difficulty pushing up to stand with BUE on surface., however if hands allowed to be on FWW and FWW stabilized by PT pt able to stand with CGA. Although this is not the safest technique it would allow caregiver least amount of physical assistance by just stabilizing FWW vs having to physically lift patient to stand .Pt very alert during assessment. Pt declined po liquids throughout assessment. Pt does not appear to recognize need or have desire to consume po intake. Patient is an 89yo male with underlying dementia who presents with clinical signs and symptoms consistent with current/admitting diagnoses that have resulted to mobility limitations, gait instability, generalized weakness, and impairment of motor control as demonstrated by the following impairment level findings: 1. Decreased strength to BUE/BLE major muscle groups 2. Impaired standing balance 3. Limitation of joint range of motion in B ankles 4. Impaired functional activity tolerance 5. cognitive impairment 6. impaired safety awareness Impairments are contributing to the following functional limitations: 1. Inability to safely ambulate without assistive device 2. Increase completion time for mobility ADL performance 3. Increased fall risk 4. Decline in bed mobility skills 5. Decline in transfer skills 6. AM-PAC Score Patient is assessed as a moderate complexity based on the following: History: 89-year-old male with impairment level findings, functional limitations, and past medical history as indicated above Examination: Demonstrable impairment in strength, balance, and mobility level with underlying impairments and functional limitations as documented above Presentation: evolving Decision Making: moderate Goals: 1. CGA bed mobility 2. CGA transfers with FWW 3. CGA ambulation with FWW >50 feet x 2 Plan of Care/Treatment Plan: 1-2x/day, 7 days/week x 1 week. Plan of care has been reviewed with the COMPUTER SERVICE TECHNICIAN providing the service under Physical Therapy direction. Initiate Physical Therapy intervention for strengthening, bed mobility, transfers, gait, stairs, balance training, use of assistive device. DISCHARGE RECOMMENDATIONS: Home with HHPT and 24 hour care. TREATMENT CODE/TIME: [id number]/ 2:58pm-3:25pm Thank you for the opportunity to participate in the care of this patient. TIERA Jessica Vazquez, PT [facility]
--- NOTE | 2024-11-07 16:23 | PCNE_ITS ---
Date of service: 11/07/24 Time of Service: 15:00 History of Present Illness Narrative: Mr. Campa is an 89 y/o M currently hospitalized 2/2 FTT; PMHx sig for mixed FTD/vascular dementia, COPD, seizures, CAD, HTN, CHF, ASCVD; present at bedside and providing full history /[facility] Course: presented to ED 11/03/24 s/p multiple falls, declined admission, dx w/cellulitis Rx'd outpt abx, he never started these; represented 11/05/24 w/decreased oral intake/wakefulness, admitted for FTT; some concern for asp PNA after hypoxia developed, placed NPO pending swallow eval, GAMING CAGE WORKER eval today recommend minced/moist diet w/asp precautions, 1:1 feeds for cue, HOB elevated for secretion mx, suction PRN; 11/07 w/increased responsiveness,able to participate in PT evaluation, recommend home w/HH services; total ADL support, speech limited, mostly non-sensible Aletha provides full history 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 He was on hospice previously, for a long time, thinks around a year, was d/c'd off after improving; she is unable to recall specific details of these events, found hospice quite helpful. - since discharge he has increased agitation/anger w/name calling specifically harsh for her; she does not give him any medications for this bc I'm not a medical person and she doesn't know what meds/how much; he has more periods of being awake/restless, including overnight, she is having a hard time sleeping as a result; he is able to ambulate in home w/walker, limited distances, bathroom is close by; she hand feeds him w/a minced/moist diet, he does cough/choke occasionally w/liquids and foods. She is unsure if he has lost weight, was ranging 135-140lbs - PC visit in June: only awake 4hrs/day, agitated/aggressive, incontinence, falls, weight loss her daughter Hilda is helpful, though she lives away and takes care of her grandchildren a lot of time. aware that Hilda has offered Lokesh to relocate to her home, however Aletha and Lokesh are hoping to remain in their home thru EOL, and stay together as long as possible Ideally Aletha would like to take Lokesh home from this hospitalization. She would like the supports from hospice again, found it quite helpful for managing his sxs and helping her w/management. She would want to continue treatment for antibiotics, she feels he would want this if he could make his own decisions. They have a hospital bed in home. He has a walker and is able to ambulate. They have a WC and there is room for him to be navigated out of home. Assessment and Plan Assessment and plan (1) Dementia: Status: Chronic Assessment and plan: Dementia type: mixed frontal temporal/vascular - IADL dependent: fully - ADL dependent: fully, able to ambulate w/walker w/sig cueing - Weight trends: decreased, 140lbs previously, this hospitalization 122lbs - PPS: 50% - FAST: 6e-7 - h/o hospice previously, d/c'd in spring 2024, eligible again today (2) Failure to thrive in adult: Status: Acute (3) Cellulitis of forearm, right: Status: Acute Assessment and plan: currently w/IV abx consider transition to oral abx as appropriate for discharge (4) Frequent falls: Status: Acute Assessment and plan: WC in home, walker in home calls for lift assist (5) Unintentional weight loss: Status: Acute Assessment and plan: documented 18lbs in last 4 mos dysphagia, dementia (6) Agitation due to dementia: Status: Acute (7) Frontotemporal dementia: Status: Acute (8) Congestive heart failure: Status: Acute (9) Deficit in activities of daily living (ADL): Status: Acute Assessment and plan: total care assist (10) Caregiver stress: Status: Acute Assessment and plan: Aletha is clearly stressed today; limited sleep; many moving pieces she felt well supported by hospice before and is hopeful they would be helpful again she is not able to answer if financially they could hire caregivers, she has an mutual fund accountant do this paperwork for her daughter Hilda willing and able to participate more, Aletha and Hilda do not always see eye to eye 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 caregiver for 4 years (11) Dysphagia: Status: Acute Assessment and plan: see GAMING CAGE WORKER note continue 1:1 feed w/cues, minced/moist, HOB elevated; reviewed recommendations w/, she was already doing this per her report (12) Palliative care patient: Assessment and plan: PC following outpatient, last PC visit in June, f/u scheduled for 11/22/24 PC recommending hospice referral at this time at discharge hospice confirmed today could do admission day after discharge, please place referral on discharge (13) Encounter for hospice care discussion: Status: Acute Assessment and plan: Aletha would want to have Lokesh return home w/hospice supports eligible today mixed vascular/frontal temporal - frequent falls, weight loss, dysphagia, total ADL support, limited speech/nonsensicle (14) ACP (advance care planning): Status: Acute Assessment and plan: reviewed current POC and hospital course; reviewed eligibility for hospice admission again, she would like to pursue this once he is off IV abx, would want to continue treatment for infection at this time bc she feels that he would want this reviewed hospice and its inability to provide caregiving, recommend consider hiring caregiving to provide her a break, consider engaging more w/Hilda for assistance reviewed need for safety to get out of home in case of fire, DME needs are already in home spent 30m w/ACP Review of Systems Narrative: as per HPI unable to provide d/t mental condition PFSH All Active Problems (Updated 11/07/24 @ 17:03 by Alison Alexandra NP) Dysphagia (Acute) Caregiver stress (Acute) Deficit in activities of daily living (ADL) (Acute) ACP (advance care planning) (Acute) Encounter for hospice care discussion (Acute) DVT prophylaxis (Acute) Dementia (Chronic) Failure to thrive in adult (Acute) Cellulitis of forearm, right (Acute) Thrombocytopenia (Chronic) Frequent falls (Acute) Actinic keratosis (Acute) Unintentional weight loss (Acute) Agitation due to dementia (Acute) Falls (Acute) Dependence on caregiver (Acute) Frontotemporal dementia (Acute) COPD with exacerbation (Acute) Noncompliance with medications (Acute) Elevated troponin (Acute) Seizure (Acute) Onychomycosis (Acute) Obstructive sleep apnea (Chronic) Rosacea (Acute) 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) Pre-diabetes (Acute) Lung nodule (Acute) Lumbar spinal stenosis (Acute) Hyperlipidemia (Acute) GERD (gastroesophageal reflux disease) (Chronic) Depression, recurrent (Chronic) Dementia with behavioral disturbance (Acute) Cognitive changes (Acute) COAG (chronic open-angle glaucoma) (Acute) Status post cataract extraction of both eyes with insertion of intraocular lens (Acute) Benign prostatic hyperplasia (Chronic) Basal cell carcinoma of nose (Acute) ASCVD (arteriosclerotic cardiovascular disease) (Acute) Anxiety (Chronic) Congestive heart failure (Acute) Hx of falling (Acute) Concern about end of life (Acute) Pulmonary embolism associated with COVID-19 (Acute) COPD (chronic obstructive pulmonary disease) (Chronic) Breakthrough seizure (Acute) Medical History Pneumonia Paroxysmal atrial fibrillation Primary cutaneous marginal zone B-cell lymphoma Cataract Skin cancer of anterior chest Pulmonary embolism without acute cor pulmonale Neck pain Hx of colonic polyp Broken arm Palliative care patient CAD (coronary artery disease) Seizure disorder H/O non-insulin dependent diabetes mellitus UTI (urinary tract infection) Myocardial infarction Hx of hyperlipidemia Surgical History History of tonsillectomy History of coronary artery stent placement Family History Maternal Grandfather Leukemia Mother Alcohol use disorder Anxiety Cancer Social History Smoking/Tobacco Use Status: Former Tobacco Use Tobacco: How many years used: 40 Second Hand Exposure: Yes Smoking risk assessment performed?: Yes Alcohol Intake: current Alcohol Intake frequency: holidays/special occasions only Drug use: Never Substance use type: does not use Adopted: No Foster care: No Household members: spouse Housing: house Number of Children: 4 Communication Needs: Hard of Hearing and Corrective Lenses Education Level: high school Do you need help understanding health information?: Often current occupation: retired Pets and animals: No Sexually active: No Do you think of yourself as: straight/heterosexual Current gender identity: male What is your relationship status?: How often do you talk on the phone with friends or family?: three or more times per week How often do you get together with friends or relatives?: decline to answer Do you belong to any clubs or organized social groups?: no Panel score (0-1 are the most socially isolated patients): 2 What type of physical activity do you participate in: additional Details: is in PT twice a week Duration: 15-30 minutes/day Frequency: 5-6 times per week Meenu/Zoroastrianism: Jain Special meenu needs: No Seatbelt use: always Helmet use: No Drive intox or ride w/intox driver's education instructor: No Do you feel safe at home: Yes Do you feel safe in your relationship?: Yes Exam Narrative Exam Narrative: General: older adult frail appearing male, sitting in recliner w/feet elevated; at bedside HEENT: normocephalic, atraumatic Resp: even and unlabored, normal resp effort; no cough or audible wheeze Neuro: awake and alert, confused Psych: unable to answer questions; insight/judgment poor Results Last Vital Signs Temp 97.0 F L 11/07/24 15:50 Pulse 56 L 11/07/24 15:50 Resp 16 11/07/24 15:50 BP 94/52 L 11/07/24 15:50 Pulse Ox 94 11/07/24 15:50 Labs 11/06/24 06:00 11/07/24 07:00 Labs: Laboratory Results - last 24 hr 11/07/24 07:00 Sodium 138 Potassium 4.3 Chloride 102 Carbon Dioxide 31.6 Anion Gap 4.4 BUN 11 Creatinine 0.8 Est GFR (CKD-EPI 2020) 85.12 Glucose 204 H Calcium 8.7 Valproic Acid 26.8 Time Spent Time Spent with Patient Time Spent(min): 70
--- NOTE | 2024-11-07 19:05 | W.PM.PROGNOT ---
Date of Service Date of service: 11/07/24 Time of Service: 19:05 Assessment and Plan Assessment and plan (1) Acute respiratory failure with hypoxia: Status: Resolved Assessment and plan: Unclear etiology, concern for aspiration, but XR negative, now off O2 EKG/troponins and BNaP not c/w ACS or CHF He does have h/o COPD, did improve with steroids, continue prednisone. He also has a history of PE during COVID, but with improvement, no CTA (2) COPD (chronic obstructive pulmonary disease): Status: Chronic Assessment and plan: Possible exacerbation. Treating with steroids and duonebs. (3) Dementia: Status: Chronic Assessment and plan: - This is baseline. Continue home memantine, donepezil as patient will tolerate - appreciate palliative input. I do think home wiht hospice very reasonable. (4) Seizure: Status: Acute Assessment and plan: Valproate level high, held 11/06 and low in AM. Resume at lower dose. Valproate may still be problematic with some evidence of liver fibrosis. Continue lacosamide (5) Thrombocytopenia: Status: Chronic Assessment and plan: Unclear etiology, has developed over the past couple years. AST/ALT ration suggests liver fibrosis/cirrhosis as cause. No cirrhosis on previous imaging, but last abdominal imaging in 08/04. Given going hospice, can defer this. (6) Failure to thrive in adult: Status: Acute Assessment and plan: - Likely secondary to end-stage dementia - Appreciate palliative care discussion with family on goals of care, going hospice, see above.. (7) Cellulitis of forearm, right: Status: Acute Assessment and plan: - On ceftriaxone as NPO, should cover pneumonia and cellulitis. Can finish therapy back on orals 11/08 (8) DVT prophylaxis: Status: Acute Assessment and plan: enoxaparin Subjective Subjective Patient reports: no new complaints and voiding w/o difficulty; denies vomiting or fever Interval history since last seen: Events: Started on prednisone 11/06, weaned off O2 this AM Seen by PAI GOW MANAGER, diet ordered Seen by palliative, plans home on hospice. Unable to give history, but responds with general responses to questions. Exam Narrative Exam Narrative: Older gentleman laying in bed in no acute distress, not oriented, but alert, heart regular rhythm, lungs now clear bilaterally, abdomen soft, nontender, nondistended. extremities without c/c/e Objective Last Vital Signs Temp 36.3 C L 11/07/24 18:43 Pulse 56 L 11/07/24 18:43 Resp 17 11/07/24 18:43 BP 108/71 11/07/24 18:43 Pulse Ox 92 11/07/24 18:43 Laboratory Results - last 24 hr 11/07/24 07:00 Sodium 138 Potassium 4.3 Chloride 102 Carbon Dioxide 31.6 Anion Gap 4.4 BUN 11 Creatinine 0.8 Est GFR (CKD-EPI 2020) 85.12 Glucose 204 H Calcium 8.7 Valproic Acid 26.8 Time Spent with Patient Time Spent with Patient: 35-49 minutes Time was spent: preparing to see the patient(eg.review tests), obtaining and/or reviewing separately otained hiistory, ordering medications,tests, procedures, referring, communicating with other health career development engineer, indepentently interpreting results, counseling the patient and care coordination
[2024-11-07] MEDS: Donepezil 5 MG TAB 10 MG PO (20:17)
[2024-11-07] MEDS: Memantine 5 MG TAB PO (20:17)
[2024-11-07] MEDS: Scopolamine 1 MG/3 DAYS PATCH TD (20:18)
[2024-11-08 00:03] VITALS: BP 101/69; PULSE 62; RESP 16; TEMP 36.4; O2SAT 93
[2024-11-08] MEDS: POTASSIUM CHLORIDE/D5-0.45NACL 1,000 ML 100 MEQ IV (00:53)
[2024-11-08] MEDS: metroNIDAZOLE 500 MG/100 ML BAG 100 MG IVPB ×2 (01:49→09:44)
[2024-11-08 03:25] VITALS: BP 106/70; PULSE 60; RESP 16; TEMP 36.1; O2SAT 93
[2024-11-08 07:41] VITALS: BP 110/66; PULSE 47; RESP 16; TEMP 36.2; O2SAT 94
[2024-11-08] MEDS: Enoxaparin 40 MG/0.4 ML SYR SC (09:44)
[2024-11-08] MEDS: predniSONE 20 MG TAB 40 MG PO (09:45)
[2024-11-08] MEDS: Normal Saline Flush 10 ML SYR IVP (09:47)
[2024-11-08] MEDS: Lacosamide 100 MG TAB PO (09:47)
--- NOTE | 2024-11-08 10:39 | PTTR_ITS ---
PT Notes Visit Reasons: Failure to Thrive Inpatient Physical Therapy Treatment Note [facility] Date: 11/08/2024 PRECAUTIONS:Standard, fall, Seizure, IV Access SUBJECTIVE: Pt reports he likes vanilla ice cream. He states he feels good OBJECTIVE: pt presented seated in chair with BLE on floor. Pt no longer receiving IV fluids.? PAIN: denied VITALS: ?monitored by Nursing Therapeutic Activities ([id number][]): Direct one-on-one instruction in dynamic activities to improve functional performance. ? BED MOBILITY/TRANSFERS? Sit-stand: min A for stabilizing FWW to allow pt to push up with BUE on FWW? ?(am and pm) ? Stand-sit: SBA pt able to reach back for surface without cues, (am/pm)? Chair- toilet: CGA with FWW (pm )? toilet - Chair: CGA with FWW(pm) Provided skilled cues and instruction on performance and technique throughout. - am Facilitated safe and correct performance of level surface ambulation covering a distance of 80 feet using use front wheeled walker with contact-guard assist Did not report of any increased pain. Denied headache, chest pain, and lightheadedness throughout activity. Minimal verbal cueing provided for AD management, directional changes, and posture. - PM Facilitated safe and correct performance of level surface ambulation covering a distance of 80 feet using use front wheeled walker with gerry by assist Did not report of any increased pain. Denied headache, chest pain, and lightheadedness throughout activity. Minimal verbal cueing provided for AD management, directional changes, and posture. ASSESSMENT:? Progression with distance of ambulation and transfer ability. Pt continues to perfrom sit to stand with BUE on FWW. When attempt to perform with safe hand placement on surface pt requires increase assistance and difficulty motor planning the reach from the surface to the device. Pt demonstrates ability to ambulate distances within his home with FWW and supervision. Pt would benefit from use of FWW for all mobility at this time. Pt with palliative consult yesterday with plan for discharge to home with Hospice services. Pt's family may benefit from PT within home for training on how to assist pt as his medical/functional condition changes. PLAN: 1-2x/day, 7 days/week x 1 week. Plan of care has been reviewed with the DIRECTOR OF HOME HEALTH SERVICES providing the service under Physical Therapy direction. Initiate Physical Therapy intervention for strengthening, bed mobility, transfers, gait, stairs, balance training, use of assistive device. TREATMENT CODE/TIME: 62814/ [id number]/ [id number] DISCHARGE RECOMMENDATION: Home with Hospice services with referral to PT as needed to train family as condition changes
--- NOTE | 2024-11-08 11:46 | W.PM.DS.N ---
Date of service: 11/08/24 Time of Service: 11:47 DS: Diagnosis Discharge Diagnosis (1) Acute respiratory failure with hypoxia: Status: Resolved (2) COPD (chronic obstructive pulmonary disease): Status: Chronic (3) Dementia: Status: Chronic (4) Seizure: Status: Acute (5) Thrombocytopenia: Status: Chronic (6) Failure to thrive in adult: Status: Acute (7) Cellulitis of forearm, right: Status: Acute (8) DVT prophylaxis: Status: Acute Discharge Plan Disposition Patient Disposition: Home W/Hospice Services Condition: Stable Discharge Details Reason For Visit: Failure to Thrive Admit Date/Time: 11/05/24 19:19 Admit Provider: Oli Escudero Attending Provider: Oli Escudero Primary Care Provider: García Scruggs [facility] Course Hospital Course: 9-year-old male with a past medical history of progressing dementia, coronary artery disease, hypertension presented to the emergency department with 2 days of being somnolent and non-verbal. Patient was previously seen in the emergency department on 11/03/2024, two days prior, after multiple falls at home with an associated arm wound and small areas of cellulitis. At that time family was offered admission but they declined. However, since that time patient has become nonverbal, difficult to awaken has not taken any of his p.o. medications including his prescribed clindamycin for his cellulitis. He had a Head/neck CTA, urinalysis, and CXR that was negative, though he did have rales in right base and hypoxia. He was treated with ceftriaxone and azithromycin for possible pneumonia initially. With the negative CXR only oral clindamycin was continued, but due to continued hypoxia cetfriaxone was continued along with metronidazole and prednisone was started 11/06. By the following morning his oxygen was weaned off. He was discharged with 2 more days of prednisone. He should resume the clinidamycin upon discharge to finish treating the cellulitis for 3 more days. His valproic acid levels were a little high at 114.6 (goal 50-100). This was a concern because with his low platelets and elevated AST/ALT ratio, he may have cirrhosis. This was held, then restarted at a lower dose of 250mg TID rather than QID. He did not have seizures. He was seen by speech pathology for a swallow evaluation and recommendations were given for minced/moist or pureed diet and aspiration precautions. He was seen by palliative care and with the and family decided to discharge to hospice care. Scopolamine patch was recommended to manage secretions with aspiration risk. Home Meds and New Rx's Prescriptions: New prednisone 20 mg Tablet 40 mg PO DAILY 2 Days Qty: 4 0RF scopolamine base 1 mg over 3 days Patch 3 Day 1 mg transdermal Q72H Qty: 0 0RF Continued donepezil 10 mg tablet 10 mg PO HS Qty: 90 3RF aspirin 81 mg tablet,delayed release (DR/EC) 81 mg PO DAILY multivitamin Tablet 1 tab PO DAILY tamsulosin 0.4 mg capsule 0.4 mg PO DAILY Qty: 90 3RF docusate sodium 100 mg capsule 100 mg PO BID Qty: 60 0RF Rx Instructions: Previously prescribed by hospice. lacosamide 100 mg tablet 100 mg PO BID Qty: 60 5RF valproic acid (as sodium salt) 250 mg/5 mL solution 250 mg PO QID Qty: 473 6RF acetaminophen 500 mg Tablet 1,000 mg PO Q8H PRN PRNQty: 30 0RF clindamycin HCl 150 mg capsule 300 mg PO BID Rx Instructions: Take two CAPSULES by mouth twice daily memantine 5 mg tablet 5 mg PO QHS Discharge Instructions Additional Instructions: take the previously prescribed clindamycin for 3 more days to finish treating the skin infection on the right arm Take 2 more days of prednisone to help the lungs. He was given a scopolaimine patch to help with secretions that can get into the airways, especially while sleeping. This can be continued through hospice [facility] Referral Note: hospice from inpatient. Advanced dementia, failure to thrive Activity:: Activity as Tolerated Equipment/Supplies:: No Equipment Needed Diet:: Minced/moist, pureed, thin liquids Discharge Orders Discharge Orders: Discharge Order (Routine); Ordered 11/08/24 Ordered By: Shun Hendricks DS: Summary Time Spent with Patient providing and/or coordinating discharge services: Greater than 30 minutes Status at Discharge Functional status at discharge: uses cane/walker Overall status at discharge: patient is back to baseline Mental Status: mental status grossly normal (other than dementia) Speech and Movement: speech and movement normal Mood: congruent mood Affect: normal affect Quality:SDOH Health Related Social Needs: Health related social needs material hardship house/econ circumstance Health related social needs details patient is non verbal, other info was taken from ER documentation. Health related social needs details: patient is non verbal, other info was taken from ER documentation. Exam Narrative Exam Narrative: Older gentleman sitting up in bed in no acute distress, not oriented, but alert, heart regular rhythm, lungs with rales right base, otherwise clear (present intermittently), abdomen soft, nontender, nondistended. extremities without c/c/e Psych Mental Status: mental status grossly normal (other than dementia) Speech and Movement: speech and movement normal Mood: congruent mood Affect: normal affect DS: Data Vitals/I&O Vitals and I&O: Vital Signs Temperature 36.2 C L 11/08/24 07:41 Temperature Source Temporal Artery Scan 11/08/24 07:41 Pulse 47 L 11/08/24 07:41 Respiratory Rate 16 11/08/24 07:41 Respiratory Effort Non-Labored 11/05/24 20:25 Respiratory Depth Normal 11/05/24 20:25 Respiratory Pattern Normal 11/05/24 17:59 Blood Pressure 110/66 11/08/24 07:41 Blood Pressure Mean 80 11/08/24 07:41 Pulse Oximetry 94 11/08/24 07:41 Oxygen Delivery Method Room Air 11/08/24 07:41 Oxygen Flow Rate 0 11/08/24 07:41 Pain Level 0 11/07/24 07:06 Comment PT stated that he was in pain, could not get him to tell me how much pain he was in. Nurse notified. 11/06/24 19:39 Intake & Output 11/07/24 11/07/24 11/08/24 11:59 23:59 11:59 Intake Total 1200 / 2320 1120 / 2320 1640 / 1640 Output Total 100 / 250 150 / 250 200 / 200 Balance 1100 / 2070 970 / 2070 1440 / 1440 Intake: IV 1200 / 2320 1120 / 2320 1100 / 1100 Oral 540 / 540 Output: Urine 100 / 250 150 / 250 200 / 200 Other: Urine Color Light Sallie Light Sallie Urine Appearance Clear Clear Urine Odor Normal Strong Comment pt dry at this time YURIY d/t incontinent pads Stool Size Small Stool Characteristics Soft Brown PFSH All Active Problems (Updated 11/07/24 @ 17:03 by Alison Alexandra NP) Dysphagia (Acute) Caregiver stress (Acute) Deficit in activities of daily living (ADL) (Acute) ACP (advance care planning) (Acute) Encounter for hospice care discussion (Acute) DVT prophylaxis (Acute) Failure to thrive in adult (Acute) Cellulitis of forearm, right (Acute) Thrombocytopenia (Chronic) Frequent falls (Acute) Actinic keratosis (Acute) Unintentional weight loss (Acute) Agitation due to dementia (Acute) Falls (Acute) Dependence on caregiver (Acute) Frontotemporal dementia (Acute) COPD with exacerbation (Acute) Noncompliance with medications (Acute) Elevated troponin (Acute) Seizure (Acute) Onychomycosis (Acute) Obstructive sleep apnea (Chronic) Rosacea (Acute) 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) Pre-diabetes (Acute) Lung nodule (Acute) Lumbar spinal stenosis (Acute) Hyperlipidemia (Acute) GERD (gastroesophageal reflux disease) (Chronic) Depression, recurrent (Chronic) Dementia with behavioral disturbance (Acute) Cognitive changes (Acute) COAG (chronic open-angle glaucoma) (Acute) Status post cataract extraction of both eyes with insertion of intraocular lens (Acute) Benign prostatic hyperplasia (Chronic) Basal cell carcinoma of nose (Acute) ASCVD (arteriosclerotic cardiovascular disease) (Acute) Anxiety (Chronic) Congestive heart failure (Acute) Hx of falling (Acute) Concern about end of life (Acute) Pulmonary embolism associated with COVID-19 (Acute) COPD (chronic obstructive pulmonary disease) (Chronic) Breakthrough seizure (Acute) Dementia (Chronic) Medical History Pneumonia Paroxysmal atrial fibrillation Primary cutaneous marginal zone B-cell lymphoma Cataract Skin cancer of anterior chest Pulmonary embolism without acute cor pulmonale Neck pain Hx of colonic polyp Broken arm Palliative care patient CAD (coronary artery disease) Seizure disorder H/O non-insulin dependent diabetes mellitus UTI (urinary tract infection) Myocardial infarction Hx of hyperlipidemia Surgical History History of tonsillectomy History of coronary artery stent placement Family History Maternal Grandfather Leukemia Mother Alcohol use disorder Anxiety Cancer Social History Smoking/Tobacco Use Status: Former Tobacco Use Tobacco: How many years used: 40 Second Hand Exposure: Yes Smoking risk assessment performed?: Yes Alcohol Intake: current Alcohol Intake frequency: holidays/special occasions only Drug use: Never Substance use type: does not use Adopted: No Foster care: No Household members: spouse Housing: house Number of Children: 4 Communication Needs: Hard of Hearing and Corrective Lenses Education Level: high school Do you need help understanding health information?: Often current occupation: retired Pets and animals: No Sexually active: No Do you think of yourself as: straight/heterosexual Current gender identity: male What is your relationship status?: How often do you talk on the phone with friends or family?: three or more times per week How often do you get together with friends or relatives?: decline to answer Do you belong to any clubs or organized social groups?: no Panel score (0-1 are the most socially isolated patients): 2 What type of physical activity do you participate in: additional Details: is in PT twice a week Duration: 15-30 minutes/day Frequency: 5-6 times per week Meenu/Holiness: Confucianist Special meenu needs: No Seatbelt use: always Helmet use: No Drive intox or ride w/intox milk tanker driver: No Do you feel safe at home: Yes Do you feel safe in your relationship?: Yes Time Spent with Patient Time Spent with Patient: <45 minutes Time was spent: preparing to see the patient(eg.review tests), obtaining and/or reviewing separately otained hiistory, referring, communicating with other health career development director, indepentently interpreting results and care coordination
[2024-11-08] MEDS: Hydrogen Peroxide 3% 480 ML BTL (13:08)
--- NOTE | 2024-11-08 13:46 | CHAPLAIN ---
Ed was up in the chair and his nurse was cleaning out his ears when I visited. According to Palliative Care notes, Ed's would accept hospice care for Ed when he returns home. She is his primary hospice home care coordinator. He's been on hospice before, but then improved. He is apparently eligible for hospice again now. Ed had dementia. He told me that he and his have been over 60 years. Ed seemed to like the prayer shawl I gave to him. His nurse read the tag to him and I think he understood that he can take it home with him. He is likely discharging today.
--- NOTE | 2024-11-08 17:37 | CMDISCH_ITS ---
Date of service: 11/08/24 Time of Service: 17:37 LACE Index Scoring Tool Questions: Length of Stay (in days): 3 Was the patient admitted via the E.D.?: Yes Comorbidities: Congestive Heart Failure and Chronic Pulmonary Disease E.D. Visits: 2 Answers: Total Score: 13 Risk of Readmission: High Risk Care Management Discharge Plan Reason for Hospitalization: failure to thrive, weakness Discharge Plan: Lokesh was discharged home earlier this afternoon with the plan for hospice admission tomorrow. Lokesh will f/u with the hospice provider and continue per his plan of care. Lokesh transported home with his and daughter. Patient/Family Education Needs: review of discharge instructions, activity, limitations, and discuss Ask me 3. Services Needed at Discharge: Home Health Care Services (Hospice.) SDOH Health Related Social Needs: Health related social needs material hardship house/ec on circumstance Health related social needs details patient is non shama bal, other info was taken from ER documentation. Health related social needs details: patient is non verbal, other info was taken from ER documentation.
--- NOTE | 2024-11-09 14:25 | PDOC.HHF2F ---
Home Health Referral Home Health Orders Clinical synopsis of why skilled professionals are needed: 89-year-old male with a past medical history of progressing dementia, coronary artery disease, hypertension presented to the emergency department with 2 days of being somnolent and non-verbal. Patient was previously seen in the emergency department on 11/03/2024, two days prior, after multiple falls at home with an associated arm wound and small areas of cellulitis. At that time family was offered admission but they declined. However, since that time patient has become nonverbal, difficult to awaken has not taken any of his p.o. medications including his prescribed clindamycin for his cellulitis. He had a Head/neck CTA, urinalysis, and CXR that was negative, though he did have rales in right base and hypoxia. He was treated with ceftriaxone and azithromycin for possible pneumonia initially. With the negative CXR only oral clindamycin was continued, but due to continued hypoxia cetfriaxone was continued along with metronidazole and prednisone was started 11/06. By the following morning his oxygen was weaned off. He was discharged with 2 more days of prednisone. He should resume the clinidamycin upon discharge to finish treating the cellulitis for 3 more days. His valproic acid levels were a little high at 114.6 (goal 50-100). This was a concern because with his low platelets and elevated AST/ALT ratio, he may have cirrhosis. This was held, then restarted at a lower dose of 250mg TID rather than QID. He did not have seizures. He was seen by speech pathology for a swallow evaluation and recommendations were given for minced/moist or pureed diet and aspiration precautions. He was seen by palliative care and with the and family decided to discharge to hospice care. Scopolamine patch was recommended to manage secretions with aspiration risk. Home health was recommended until hospice could be arranged. Medical diagnosis necessitation home health referral: dementia, seizure disorder, failure to thrive, respiratory failure/COPD exacerbation Registered Nurse: Check all that apply Instruct on new or changed medication(s)/assess compliance: Ordered Assess for exacerbation of medical condition, instruct patient/caregivers on signs and symptoms to report for early detection: Ordered Physical Therapist: Check all that apply Increase strength & endurance for safe mobility at home: Ordered To design/establish home maintenance program: Ordered Fall reduction therapy program for patient with history of frequent falls: Ordered Home safety evaluation and teaching/gait training including stair management (if applicable): Ordered Occupational Therapist: Evaluate and treat for patient unable to perform ADL/IADL/self-care: Ordered Forest Landscape Ecology Professor: Assist with community resources: Ordered Assist with [place] [facility] care planning: Ordered Home Bound Status Requires the aid of supportive device (check all that apply): Walker Describe why leaving home would require a considerable and taxing effort: Confusion Encounter Date and Reason: I certify that a FTF encounter for this patient was performed on November 09, 2024 and that such encounter was related to the primary reason the patient requires home health services. The encounter was conducted in the following manner: By me as the certifying physician, POLYSOMNOGRAPHIC TECH, PA or By an inpatient physician, POLYSOMNOGRAPHIC TECH or PA during an inpatient stay who communicated findings to me, Certification And Authentication I certify that I composed the above information based on my clinical judgment relating to this patient's medical condition and, if applicable, clinical findings communicated to me by the NPP or inpatient physician who performed the FTF encounter. Name of Provider that will be monitoring home health services: García Scruggs
== END 2024-11-08 14:34 | disposition hospice, home (50) ==
LOC: ER 16:41 → MS 20:06
PROVIDERS: Admitting Provider Family Medicine; Emergency Provider Emergency Medicine; PCP Family Medicine; Responsible Provider Family Medicine; Visit Provider Family Medicine
DX: J96.01 Acute respiratory failure with hypoxia (principal); R62.7 Adult failure to thrive; G31.09 Other frontotemporal neurocognitive disorder; L03.113 Cellulitis of right upper limb; R63.4 Abnormal weight loss; Z68.1 Body mass index [BMI] 19.9 or less, adult; I50.9 Heart failure, unspecified; I11.0 Hypertensive heart disease with heart failure; D69.6 Thrombocytopenia, unspecified; F02.C0 Dementia in other diseases classified elsewhere, severe, without behavioral disturbance, psychotic disturbance, mood disturbance, and anxiety; Z79.899 Other long term (current) drug therapy; I25.10 Atherosclerotic heart disease of native coronary artery without angina pectoris; R53.1 Weakness; R29.6 Repeated falls; I65.22 Occlusion and stenosis of left carotid artery; J44.9 Chronic obstructive pulmonary disease, unspecified; G47.33 Obstructive sleep apnea (adult) (pediatric); R73.03 Prediabetes; R91.1 Solitary pulmonary nodule; F02.C11 Dementia in other diseases classified elsewhere, severe, with agitation; Z91.148 Patient's other noncompliance with medication regimen for other reason; M48.061 Spinal stenosis, lumbar region without neurogenic claudication; N40.0 Benign prostatic hyperplasia without lower urinary tract symptoms; Z86.711 Personal history of pulmonary embolism; F41.9 Anxiety disorder, unspecified; I48.0 Paroxysmal atrial fibrillation; G40.909 Epilepsy, unspecified, not intractable, without status epilepticus; F01.C0 Vascular dementia, severe, without behavioral disturbance, psychotic disturbance, mood disturbance, and anxiety; Z73.89 Other problems related to life management difficulty; R13.10 Dysphagia, unspecified; Z95.5 Presence of coronary angioplasty implant and graft; C85.10 Unspecified B-cell lymphoma, unspecified site; Z59.87 Material hardship due to limited financial resources, not elsewhere classified
CPT/HCPCS: 00123; 36415; 70496; 70498; 80048; 80053; 83690; 85027; 92610; 93005; 96365; 96366; 96367; 96372; 97162; 97530; 99285; J1650; 71045; 71046; 80164; 81003; 81015; 83735; 83880; 84443; 84484; 85025; 93010; 94640; 94760; 99223; 99232; 99238; G0378; J0456; J0696; J1836; J3490; J7512; J7620